=== PATIENT | male | born 1965 | race Caucasian/White ===

== ENCOUNTER → 2019-07-30 09:18 | Outpatient (BNVA) | payer MEDICAID, SELFPAY | PROVIDERS: PCP Family Medicine; Visit Provider Nurse Practitioner | DX: F20.89 Other schizophrenia (principal); F11.21 Opioid dependence, in remission | CPT/HCPCS: 99213 ==

== ENCOUNTER → 2019-10-22 07:53 | Outpatient (BNVA) | payer MEDICAID, SELFPAY | PROVIDERS: PCP Family Medicine; Visit Provider Nurse Practitioner | DX: F20.89 Other schizophrenia (principal); F17.210 Nicotine dependence, cigarettes, uncomplicated | CPT/HCPCS: 99213 ==

== ENCOUNTER 2020-02-18 20:23 | Emergency (ER) | payer MEDICAID, SELFPAY ==
--- NOTE | 2020-02-18 20:25 | ECG_ITS ---
[facility] Test Date: 2020-02-18 Pat Name: David Cortes Department: Room: Gender: Male Accredited Pharmacy Technician: : 1965 Requested By: Fany Maher Order Number: [id number] Mahesh MD: Joycelyn Yang M.D. Measurements Intervals [place] Rate: 99 P: 41 AR: 150 QRS: 34 QRSD: 96 T: 59 QT: 351 QTc: 451 Interpretive Statements SINUS RHYTHM Compared to ECG 06/19/2017 14:09:09 No significant change Electronically Signed On 02-19-2020 12:43:00 CDT by Joycelyn Yang M.D. [id number]
[2020-02-18 20:35] VITALS: BP 140/85; PULSE 92; RESP 20; TEMP 36.7; O2SAT 97; BMI 30.5
--- NOTE | 2020-02-18 20:54 | W.ED.SOB ---
HPI - SOB/Dyspnea General: Chief Complaint: Shortness of Breath/Dyspnea Stated Complaint: CHEST PAIN, SOB Time Seen by Provider: 02/18/20 20:45 Source: patient Mode of arrival: ambulatory Limitations: no limitations History of Present Illness: HPI Narrative: 54-year-old male who states he has had a cough along with dyspnea and wheezing over the last week. He states he has sharp pains in his chest now from coughing especially deep separation. He denies any worsening improving factors. He denies any vomiting. He denies any fevers. He has had no sick contacts. MD elicited complaint: shortness of breath Associated symptoms: Deny abdominal pain, chest pain, fever(s), nausea or vomiting Review of Systems Const: Denies: fever(s), chills, body aches or change in appetite Eyes: Denies: blurry vision or eye discomfort ENMT: Denies: throat pain or dental pain Card: Denies: chest pain Resp: Reports: dyspnea, non-productive cough and wheezing GI: Denies: abdominal pain, nausea, vomiting or diarrhea : Denies: dysuria Musc: Denies: neck pain or back pain Skin/Breast: Denies: rash Neuro: Denies: headache(s) Psych: Denies: depression Tab/Lymph: Denies: easy bruising All/Imm: Denies: urticaria PFSH ED PFSH: Medical History Nicotine dependence, cigarettes, uncomplicated Opioid dependence, in remission Other schizophrenia Other stimulant dependence, in remission Family History Mother Psychiatric illness Schizophrenia Social History Smoking and tobacco status: current every day smoker cigarettes Smoking risk assessment/counseling performed?: Yes Tobacco counseling given: counseling >3 minutes Physical Exam Const: COMMON NORMALS: no acute distress, patient oriented x3 and healthy appearing HENMT: COMMON NORMALS: normocephalic and atraumatic HEAD & SCALP: normocephalic and atraumatic Eye: COMMON NORMALS: Equal, round and reactive pupils present and EOMs intact bilaterally PUPIL: Yes Equal, round and reactive pupils present Neck/C-Spine: COMMON NORMALS: full ROM and supple Chest: COMMONS NORMALS: normal inspection of the chest and normal palpation of entire chest wall Resp: COMMON NORMALS: normal respiratory effort, No retractions and No use of accessory muscles AUSCULTATION: wheezes Cardio: COMMON NORMALS: regular rate, regular rhythm and No murmurs present (Cardio) RATE: regular rate RHYTHM: regular rhythm GI: COMMON NORMALS: Normal to inspection, nondistended, normoactive bowel sounds present, Soft to palpation, non-tender and no masses PALPATION: Yes Soft to palpation Extremity: COMMON NORMALS: normal to inspection and full ROM Neuro: COMMON NORMALS: patient oriented x3, moves all extremities and no focal motor deficits Psych: COMMON NORMALS: mental status grossly normal, Normal thought process present and cooperative THOUGHT PROCESS: Normal thought process present Skin: COMMON NORMALS: no rashes or lesions noted and no wounds GENERAL SKIN EXAM: no rashes or lesions noted Course Vital Signs: Vital signs: Vital Signs Temperature 98.0 F 02/18/20 20:35 Pulse Rate 85 02/18/20 23:43 Respiratory Rate 18 02/18/20 23:43 Blood Pressure 135/78 02/18/20 23:43 Pulse Oximetry 95 02/18/20 23:43 MDM - SOB/Dyspnea MDM Narrative: Medical decision making narrative: Patient presents here with bronchitis likely has asthma. Patient feels improved after breathing treatments. Will give patient 5 days of steroids along with Keflex along with albuterol. Patient has no signs of cardiac cause and repeat troponins negative. Patient has no signs of pulmonary embolism or coronavirus. Patient feels improved after breathing treatments and is to follow-up with primary care doctor in 3 to 5 days and return if worsening. He understands and agrees to plan. Lab Data: Labs: Lab Results 02/18/20 02/18/20 02/18/20 Range/Units 20:46 20:46 20:46 WBC 6.0 (4.0-10.0) 10^3/ uL RBC 4.88 (4.1-5.3) 10^6/u L Hgb 14.2 (11.7-16.6) g/dL Hct 44.6 (42.0-52.0) % MCV 91.4 (80-94) fL MCH 29.1 (28.0-34.0) pg MCHC 31.8 (30.0-36.0) g/dL RDW 14.2 (12.1-15.1) % Plt Count 326 (130-400) 10^3/c mm MPV 8.5 (7.4-10.4) fL Neut % (Auto) 67.0 % Lymph % (Auto) 21.3 % [place] % (Auto) 7.9 % Eos % (Auto) 2.7 % Baso % (Auto) 0.8 % Neut # (Auto) 3.98 (1.8-7.7) 10^3/u L Lymph # (Auto) 1.3 (0.8-4.8) 10^3/u L [place] # (Auto) 0.5 (0.2-0.9) 10^3/u L Eos # (Auto) 0.2 (0.0-0.8) 10^3/u L Baso # (Auto) 0.1 (0.0-0.1) 10^3/u L Nucleated RBC % (a uto) 0 % Nucleated RBCs # 0.0 /100WBC PT 12.10 (12.1-14.9) SECO NDS INR 0.87 (0.8-1.2) Sodium 136 (136-145) mmol/L Potassium 3.9 (3.5-5.1) mmol/L Chloride 100 (98-107) mmol/L Carbon Dioxide 26 (22-29) mmol/L Anion Gap 13.9 (5-19) BUN 15 (6-20) mg/dL Creatinine 1.0 (0.7-1.2) mg/dL GFR Calculation 77.9 L (90-130) mL/min Glucose 157 H (65-115) mg/dL Calculated Osmolal ity 282 L (285-295) mOsm/k g Calcium 9.5 (8.5-10.5) mg/dL Total Bilirubin 0.3 (0.15-1.2) mg/dL AST 17 (0-40) U/L ALT 31 (0-41) U/L Alkaline Phosphata se 100 (40-130) IU/L Troponin T Baselin e (0-15) ng/L Troponin T 120 Min [place] (0-15) ng/L Delta Troponin T (0-10) ABS# NT-Pro-B Natriuret Pep 369 H (0-125) pg/mL Total Protein 7.3 (6.6-8.7) g/dL Albumin 4.3 (3.5-5.2) g/dL Globulin 3.0 (1.3-4.6) g/dL 02/18/20 02/18/20 Range/Units 20:46 22:10 WBC (4.0-10.0) 10^3/ uL RBC (4.1-5.3) 10^6/u L Hgb (11.7-16.6) g/dL Hct (42.0-52.0) % MCV (80-94) fL MCH (28.0-34.0) pg MCHC (30.0-36.0) g/dL RDW (12.1-15.1) % Plt Count (130-400) 10^3/c mm MPV (7.4-10.4) fL Neut % (Auto) % Lymph % (Auto) % [place] % (Auto) % Eos % (Auto) % Baso % (Auto) % Neut # (Auto) (1.8-7.7) 10^3/u L Lymph # (Auto) (0.8-4.8) 10^3/u L [place] # (Auto) (0.2-0.9) 10^3/u L Eos # (Auto) (0.0-0.8) 10^3/u L Baso # (Auto) (0.0-0.1) 10^3/u L Nucleated RBC % (a uto) % Nucleated RBCs # /100WBC PT (12.1-14.9) SECO NDS INR (0.8-1.2) Sodium (136-145) mmol/L Potassium (3.5-5.1) mmol/L Chloride (98-107) mmol/L Carbon Dioxide (22-29) mmol/L Anion Gap (5-19) BUN (6-20) mg/dL Creatinine (0.7-1.2) mg/dL GFR Calculation (90-130) mL/min Glucose (65-115) mg/dL Calculated Osmolal ity (285-295) mOsm/k g Calcium (8.5-10.5) mg/dL Total Bilirubin (0.15-1.2) mg/dL AST (0-40) U/L ALT (0-41) U/L Alkaline Phosphata se (40-130) IU/L Troponin T Baselin e 20 H (0-15) ng/L Troponin T 120 Min [place] 18.88 H (0-15) ng/L Delta Troponin T -1.12 L (0-10) ABS# NT-Pro-B Natriuret Pep (0-125) pg/mL Total Protein (6.6-8.7) g/dL Albumin (3.5-5.2) g/dL Globulin (1.3-4.6) g/dL Imaging Data^: CXR: Radiologist's impression: Reason: cough [address] [address] XRay Report Signed Patient: David Cortes Unit #: [id number] : 1965 Age/Sex: 54 / M ADM Date: 02/18/20 Loc: ER Room/Bed: Attending Dr: Ordering Provider/Ordering MD: Fany Maher MD Date of Service: 02/18/20 Procedure(s): XR chest 1V portable [id number] Accession Number(s): [id number] Report Number: [id number] PROCEDURE INFORMATION: Exam: XR Chest, 1 View Exam date and time: 02/18/2020 9:44 PM Age: 54 years old Clinical indication: Cough TECHNIQUE: Imaging protocol: XR of the chest Views: 1 view. COMPARISON: CR Chest 1 [place] [id number] 03/22/2019 10:11 PM FINDINGS: Lungs: No visible active interstitial or alveolar airspace disease. Pleural space: Unremarkable. No pleural effusion. No pneumothorax. Heart/Mediastinum: Cardiomegaly. Bones/joints: Previous right shoulder rotator cuff repair. Tendon anchors. Right distal clavicle osteotomy. XR/XR chest 1V portable [id number] IMPRESSION: Nonacute. Dictated By: Ovidio Lafleur Signed By: Ovidio Lafleur Signed Date/Time: 02/18/20 2216 EKG Data^: EKG 1: Attestation: I personally reviewed and interpreted this EKG as follows: EKG Interpretation Date: 02/18/20 EKG interpretation time: 20:57 Interpretation: nsr hr [address] or t wave abnormalities 96 qtc 407 EKG 2: Attestation: I personally reviewed and interpreted this EKG as follows: EKG Interpretation Date: 02/18/20 EKG interpretation time: 22:18 Interpretation: nsr hr [address] or t wave abnormalities qrs 101 qtc 429 Discharge Plan Discharge Patient Disposition: Home Clinical Impression: Bronchitis Condition: Stable Prescriptions: New albuterol sulfate 2.5 mg /3 mL (0.083 %) solution for nebulization 2.5 mg INHALATION Q4H PRN (Reason: shortness of breath or wheezing) Qty: 90 RF: 0 Keflex 500 mg capsule 500 mg PO Q6H 7 Days Qty: 28 RF: 0 prednisone 50 mg tablet 50 mg PO DAILY Qty: 5 RF: 0 No Action nicotine 14 mg/24 hr patch 24 hour 1 patch TRANSDERMA Q24H Qty: 28 RF: 0 gabapentin 800 mg tablet 800 mg PO TID Qty: 90 RF: 0 quetiapine [Seroquel] 300 mg tablet 600 mg PO .Qhs Qty: 60 RF: 0 quetiapine [Seroquel] 100 mg tablet 100 mg PO BID Qty: 60 RF: 0 Multiple Vitamins Tablet 1 tab PO DAILY RF: 0 Discharge Orders: Discharge Order (Routine); Ordered 02/18/20 Ordered By: Fany Maher Referrals: Juma Cho MD [Primary Care Provider] - 1-3 days Discharge Diet: Advance as tolerated Discharge Activity: Resume usual activity Discharge Date/Time: 02/18/20 23:44 Coding Level of Care Code ED Sound Printer for Chg Fwd Exam Comprehensive
[2020-02-18 20:58] LABS: Basophils # 0.1 10^3/uL (0.0-0.1); Basophils % 0.8 %; Eosinophils # 0.2 10^3/uL (0.0-0.8); Eosinophils % 2.7 %; Hematocrit 44.6 % (42.0-52.0); Hemoglobin 14.2 g/dL (11.7-16.6); Lymphocytes # 1.3 10^3/uL (0.8-4.8); Lymphocytes % 21.3 %; Mean Corpuscular HGB Conc 31.8 g/dL (30.0-36.0); Mean Corpuscular Hemoglobin 29.1 pg (28.0-34.0); Mean Corpuscular Volume 91.4 fL (80-94); Mean Platelet Volume 8.5 fL (7.4-10.4); Monocytes # 0.5 10^3/uL (0.2-0.9); Monocytes % 7.9 %; Neutrophils # 3.98 10^3/uL (1.8-7.7); Nucleated Red Blood Cells % 0 %; Platelet Count 326 10^3/cmm (130-400); Red Blood Count 4.88 10^6/uL (4.1-5.3); Red Cell Distribution Width 14.2 % (12.1-15.1)
[2020-02-18 21:08] VITALS: PULSE 94; RESP 19; O2SAT 98
[2020-02-18] MEDS: ipratropium-albuterol 3 mL Neb INHALATION (21:08)
[2020-02-18 21:10] LABS: INR 0.87 (0.8-1.2)
[2020-02-18 21:13] VITALS: PULSE 100; RESP 20; O2SAT 97
--- NOTE | 2020-02-18 21:22 | XRR_ITS ---
PROCEDURE INFORMATION: Exam: XR Chest, 1 View Exam date and time: 02/18/2020 9:44 PM Age: 54 years old Clinical indication: Cough TECHNIQUE: Imaging protocol: XR of the chest Views: 1 view. COMPARISON: CR Chest 1 [place] [id number] 03/22/2019 10:11 PM FINDINGS: Lungs: No visible active interstitial or alveolar airspace disease. Pleural space: Unremarkable. No pleural effusion. No pneumothorax. Heart/Mediastinum: Cardiomegaly. Bones/joints: Previous right shoulder rotator cuff repair. Tendon anchors. Right distal clavicle osteotomy. XR/XR chest 1V portable [id number] IMPRESSION: Nonacute.
[2020-02-18 21:24] LABS: Alanine Aminotransferase 31 U/L (0-41); Albumin Level 4.3 g/dL (3.5-5.2); Alkaline Phosphatase 100 IU/L (40-130); Anion Gap 13.9 (5-19); Aspartate Amino Transferase 17 U/L (0-40); Blood Urea Nitrogen 15 mg/dL (6-20); Calcium 9.5 mg/dL (8.5-10.5); Carbon Dioxide 26 mmol/L (22-29); Chloride 100 mmol/L (98-107); Glomerular Filtration Rate 77.9 mL/min (90-130); Glucose 157 mg/dL (65-115); NT Pro B Type Natriuretic Pept 369 pg/mL (0-125); Osmolality Calculated 282 mOsm/kg (285-295); Potassium 3.9 mmol/L (3.5-5.1); Sodium 136 mmol/L (136-145); Total Bilirubin 0.3 mg/dL (0.15-1.2); Total Protein 7.3 g/dL (6.6-8.7)
[2020-02-18] MEDS: ketorolac 30 mg/mL INJ 15 MG IVP (21:31)
[2020-02-18 21:50] LABS: Troponin(5th) Baseline 20 ng/L (0-15)
--- NOTE | 2020-02-18 22:25 | ECG_ITS ---
[facility] Test Date: 2020-02-18 Pat Name: David Cortes Department: Room: Gender: Male Beauty Specialist: : 1965 Requested By: Fany Maher Order Number: [id number] Mahesh MD: Joycelyn Yang M.D. Measurements Intervals [place] Rate: 89 P: 53 NV: 168 QRS: 49 QRSD: 101 T: 50 QT: 382 QTc: 467 Interpretive Statements SINUS RHYTHM Compared to ECG 02/18/2020 20:57:31 T-wave abnormality no longer present Electronically Signed On 02-19-2020 12:50:50 CDT by Joycelyn Yang M.D. [id number]
[2020-02-18 22:36] LABS: Troponin 5 2HR 18.88 ng/L (0-15)
[2020-02-18 22:40] LABS: Troponin 5 2HR Delta -1.12 ABS# (0-10)
[2020-02-18 23:13] VITALS: PULSE 85; RESP 18; O2SAT 95
[2020-02-18 23:21] VITALS: PULSE 88
[2020-02-18 23:43] VITALS: BP 135/78; PULSE 85; RESP 18; O2SAT 95
== END 2020-02-18 23:44 | disposition home or self-care (01) ==
PROVIDERS: Emergency Provider Emergency Medicine; PCP Family Medicine
DX: J40 Bronchitis, not specified as acute or chronic (principal); F17.210 Nicotine dependence, cigarettes, uncomplicated
CPT/HCPCS: 12345; 71045; 80053; 83880; 84484; 85025; 85610; 93005; 94640; 96374; 96375; 99283; 99284; J1885; J2930; J7611

== ENCOUNTER 2020-03-05 10:43 | Emergency (ER) | payer MEDICAID, SELFPAY ==
[2020-03-05] VITALS (7 sets, daily range): BP systolic 134–138; BP diastolic 76–78; PULSE 89–101; RESP 16–20; TEMP 36.2; O2SAT 95–99; BMI 31.8
--- NOTE | 2020-03-05 10:56 | ECG_ITS ---
[facility] Test Date: 2020-03-05 Pat Name: David Cortes Department: Room: Gender: Male Apron Man: : 1965 Requested By: Fany Maher Order Number: [id number] Mahesh MD: Alexis Adan M.D. Measurements Intervals [place] Rate: 84 P: 55 [place]: 160 QRS: 50 QRSD: 112 T: 55 QT: 386 QTc: 458 Interpretive Statements SINUS RHYTHM INTRAVENTRICULAR CONDUCTION DELAY [110+ ms QRS DURATION] Compared to ECG 02/18/2020 22:18:26 Intraventricular conduction delay now present Electronically Signed On 03-05-2020 18:18:34 CDT by Alexis Adan M.D. [id number] f
--- NOTE | 2020-03-05 10:56 | XR_ITS ---
WS: [id number] EXAM: AP CHEST: PORTABLE UPRIGHT DATE OF EXAM: 03/05/2020, 1122 hours COMPARISON: Chest x-rays from 11/06/2016, 04/01/2018 and 02/18/2020 HISTORY: Patient is 55 years old with shortness of breath. FINDINGS: The cardiac silhouette is normal in size. The mediastinal contours are normal. The pulmonary vas cularity is normal. The lungs are clear of infiltrate. There is no effusion or pneumothorax. No ac zach bony abnormality is seen. XR/XR chest 1V portable [id number] IMPRESSION: No acute pulmonary disease.
[2020-03-05] MEDS: ipratropium-albuterol 3 mL Neb INHALATION (11:53)
--- NOTE | 2020-03-05 12:10 | W.ED.URI ---
HPI - URI/Sore Throat General: Chief Complaint: Upper Respiratory Infection Stated Complaint: cp/sob Time Seen by Provider: 03/05/20 11:07 Source: patient Mode of arrival: ambulatory Limitations: no limitations History of Present Illness: HPI Narrative: 55-year-old male who has a history of bronchitis. Patient was seen here 2 weeks ago and taken steroids and antibiotics state he felt improved. Patient felt much better here after breathing treatment was prescribed nebs but states he did not have a nebulizer machine. Patient states he has had increased wheezing again. He has not followed up with anyone. He denies any fever. He denies any worsening or improving factors currently. Associated symptoms: Deny abdominal pain, chills, chest pain, diarrhea, fever(s), headache(s), nausea or vomiting Review of Systems Const: Denies: fever(s), chills, body aches or change in appetite Eyes: Denies: blurry vision or eye discomfort ENMT: Denies: throat pain or dental pain Card: Denies: chest pain Resp: Reports: dyspnea and non-productive cough GI: Denies: abdominal pain, nausea, vomiting or diarrhea : Denies: dysuria Musc: Denies: neck pain or back pain Skin/Breast: Denies: rash Neuro: Denies: headache(s) Psych: Denies: depression Tab/Lymph: Denies: easy bruising All/Imm: Denies: urticaria PFSH ED PFSH: Medical History (Updated 03/05/20 @ 14:09 by Fany Maher MD) Nicotine dependence, cigarettes, uncomplicated Opioid dependence, in remission Other schizophrenia Other stimulant dependence, in remission Family History Mother Psychiatric illness Schizophrenia Social History Smoking and tobacco status: current every day smoker cigarettes Smoking risk assessment/counseling performed?: Yes Tobacco counseling given: counseling >3 minutes Physical Exam Const: COMMON NORMALS: no acute distress, patient oriented x3 and healthy appearing HENMT: COMMON NORMALS: normocephalic and atraumatic HEAD & SCALP: normocephalic and atraumatic Eye: COMMON NORMALS: Equal, round and reactive pupils present and EOMs intact bilaterally PUPIL: Yes Equal, round and reactive pupils present Neck/C-Spine: COMMON NORMALS: full ROM and supple Chest: COMMONS NORMALS: normal inspection of the chest and normal palpation of entire chest wall Resp: COMMON NORMALS: normal respiratory effort, No retractions and No use of accessory muscles AUSCULTATION: wheezes Cardio: COMMON NORMALS: regular rate, regular rhythm and No murmurs present (Cardio) RATE: regular rate RHYTHM: regular rhythm GI: COMMON NORMALS: Normal to inspection, nondistended, normoactive bowel sounds present, Soft to palpation, non-tender and no masses PALPATION: Yes Soft to palpation Extremity: COMMON NORMALS: normal to inspection and full ROM Neuro: COMMON NORMALS: patient oriented x3, moves all extremities and no focal motor deficits Psych: COMMON NORMALS: mental status grossly normal, Normal thought process present and cooperative THOUGHT PROCESS: Normal thought process present Skin: COMMON NORMALS: no rashes or lesions noted and no wounds GENERAL SKIN EXAM: no rashes or lesions noted Course Vital Signs: Vital signs: Vital Signs Temperature 97.1 F L 03/05/20 10:53 Pulse Rate 89 03/05/20 15:28 Respiratory Rate 20 H 03/05/20 15:28 Blood Pressure 138/78 03/05/20 15:28 Pulse Oximetry 99 03/05/20 15:28 MDM - URI/Sore Throat MDM Narrative: Medical decision making narrative: Patient presents here with cough and likely COPD exacerbation. Will place on steroids. He has had no hypoxia here and is well-appearing here after breathing treatments. We will get him set up an appointment with pulmonology. He is to follow-up with them and return if worsening. Lab Data: Labs: Lab Results 03/05/20 03/05/20 03/05/20 Range/Units 12:30 12:30 12:30 WBC 8.1 (4.0-10.0) 10^3/ uL RBC 4.60 (4.1-5.3) 10^6/u L Hgb 13.3 (11.7-16.6) g/dL Hct 42.2 (42.0-52.0) % MCV 91.7 (80-94) fL MCH 28.9 (28.0-34.0) pg MCHC 31.5 (30.0-36.0) g/dL RDW 14.2 (12.1-15.1) % Plt Count 269 (130-400) 10^3/c mm MPV 8.6 (7.4-10.4) fL Neut % (Auto) 70.6 % Lymph % (Auto) 20.4 % [place] % (Auto) 7.5 % Eos % (Auto) 0.6 % Baso % (Auto) 0.5 % Neut # (Auto) 5.75 (1.8-7.7) 10^3/u L Lymph # (Auto) 1.7 (0.8-4.8) 10^3/u L [place] # (Auto) 0.6 (0.2-0.9) 10^3/u L Eos # (Auto) 0.1 (0.0-0.8) 10^3/u L Baso # (Auto) 0.0 (0.0-0.1) 10^3/u L Nucleated RBC % (a uto) 0 % Nucleated RBCs # 0.0 /100WBC Sodium 135 L (136-145) mmol/L Potassium 3.8 (3.5-5.1) mmol/L Chloride 100 (98-107) mmol/L Carbon Dioxide 26 (22-29) mmol/L Anion Gap 12.8 (5-19) BUN 14 (6-20) mg/dL Creatinine 0.9 (0.7-1.2) mg/dL GFR Calculation 87.6 L (90-130) mL/min Glucose 159 H (65-115) mg/dL Calculated Osmolal ity 280 L (285-295) mOsm/k g Calcium 8.9 (8.5-10.5) mg/dL Total Bilirubin 0.3 (0.15-1.2) mg/dL AST 18 (0-40) U/L ALT 31 (0-41) U/L Alkaline Phosphata se 92 (40-130) IU/L Troponin T Baselin e 20 H (0-15) ng/L Troponin T 120 Min [place] (0-15) ng/L Delta Troponin T (0-10) ABS# NT-Pro-B Natriuret Pep 394 H (0-125) pg/mL Total Protein 6.6 (6.6-8.7) g/dL Albumin 3.9 (3.5-5.2) g/dL Globulin 2.7 (1.3-4.6) g/dL 03/05/20 Range/Units 14:30 WBC (4.0-10.0) 10^3/ uL RBC (4.1-5.3) 10^6/u L Hgb (11.7-16.6) g/dL Hct (42.0-52.0) % MCV (80-94) fL MCH (28.0-34.0) pg MCHC (30.0-36.0) g/dL RDW (12.1-15.1) % Plt Count (130-400) 10^3/c mm MPV (7.4-10.4) fL Neut % (Auto) % Lymph % (Auto) % [place] % (Auto) % Eos % (Auto) % Baso % (Auto) % Neut # (Auto) (1.8-7.7) 10^3/u L Lymph # (Auto) (0.8-4.8) 10^3/u L [place] # (Auto) (0.2-0.9) 10^3/u L Eos # (Auto) (0.0-0.8) 10^3/u L Baso # (Auto) (0.0-0.1) 10^3/u L Nucleated RBC % (a uto) % Nucleated RBCs # /100WBC Sodium (136-145) mmol/L Potassium (3.5-5.1) mmol/L Chloride (98-107) mmol/L Carbon Dioxide (22-29) mmol/L Anion Gap (5-19) BUN (6-20) mg/dL Creatinine (0.7-1.2) mg/dL GFR Calculation (90-130) mL/min Glucose (65-115) mg/dL Calculated Osmolal ity (285-295) mOsm/k g Calcium (8.5-10.5) mg/dL Total Bilirubin (0.15-1.2) mg/dL AST (0-40) U/L ALT (0-41) U/L Alkaline Phosphata se (40-130) IU/L Troponin T Baselin e (0-15) ng/L Troponin T 120 Min [place] 20.66 H (0-15) ng/L Delta Troponin T 0.66 (0-10) ABS# NT-Pro-B Natriuret Pep (0-125) pg/mL Total Protein (6.6-8.7) g/dL Albumin (3.5-5.2) g/dL Globulin (1.3-4.6) g/dL Imaging Data^: CXR: Radiologist's impression: [address] [place] [address] XRay Report Signed Patient: David Cortes Unit #: [id number] : 1965 Age/Sex: 55 / M ADM Date: 03/05/20 Loc: ER Room/Bed: Attending Dr: Ordering Provider/Ordering MD: Fany Maher MD Date of Service: 03/05/20 Procedure(s): XR chest 1V portable [id number] Accession Number(s): [id number] Report Number: [id number] WS: [id number] EXAM: AP CHEST: PORTABLE UPRIGHT DATE OF EXAM: 03/05/2020, 1122 hours COMPARISON: Chest x-rays from 11/06/2016, 04/01/2018 and 02/18/2020 HISTORY: Patient is 55 years old with shortness of breath. FINDINGS: The cardiac silhouette is normal in size. The mediastinal contours are normal. The pulmonary vascularity is normal. The lungs are clear of infiltrate. There is no effusion or pneumothorax. No acute bony abnormality is seen. XR/XR chest 1V portable [id number] IMPRESSION: No acute pulmonary disease. Discharge Plan Discharge Patient Disposition: Home Clinical Impression: Bronchitis Condition: Stable Prescriptions: New prednisone 50 mg tablet 50 mg PO DAILY Qty: 5 RF: 0 albuterol sulfate 90 mcg/actuation HFA aerosol inhaler 2 inh INHALATION Q6H PRN (Reason: shortness of breath or wheezing) Qty: 8 RF: 0 No Action nicotine 14 mg/24 hr patch 24 hour 1 patch TRANSDERMA Q24H Qty: 28 RF: 0 gabapentin 800 mg tablet 800 mg PO TID Qty: 90 RF: 0 quetiapine [Seroquel] 300 mg tablet 600 mg PO .Qhs Qty: 60 RF: 0 quetiapine [Seroquel] 100 mg tablet 100 mg PO BID Qty: 60 RF: 0 multivitamin [Multiple Vitamins] Tablet 1 tab PO DAILY RF: 0 albuterol sulfate 2.5 mg /3 mL (0.083 %) solution for nebulization 2.5 mg INHALATION Q4H PRN (Reason: shortness of breath or wheezing) Qty: 90 RF: 0 Discharge Orders: Discharge Order (Routine); Ordered 03/05/20 Ordered By: Fany Maher Referrals: Juma Cho MD [Primary Care Provider] - Gabby Bautista MD [Physician] - 1-3 days Discharge Diet: Advance as tolerated Discharge Activity: Resume usual activity Patient Instructions: Acute Bronchitis (ED) Discharge Date/Time: 03/05/20 15:30 Coding Level of Care Code ED Medical Affairs Specialist for Chg Fwd Exam Comprehensive
[2020-03-05 12:38] LABS: Basophils % 0.5 %; Eosinophils # 0.1 10^3/uL (0.0-0.8); Eosinophils % 0.6 %; Hematocrit 42.2 % (42.0-52.0); Hemoglobin 13.3 g/dL (11.7-16.6); Lymphocytes # 1.7 10^3/uL (0.8-4.8); Lymphocytes % 20.4 %; Mean Corpuscular HGB Conc 31.5 g/dL (30.0-36.0); Mean Corpuscular Hemoglobin 28.9 pg (28.0-34.0); Mean Corpuscular Volume 91.7 fL (80-94); Mean Platelet Volume 8.6 fL (7.4-10.4); Monocytes # 0.6 10^3/uL (0.2-0.9); Monocytes % 7.5 %; Neutrophils # 5.75 10^3/uL (1.8-7.7); Neutrophils % 70.6 %; Nucleated Red Blood Cells % 0 %; Platelet Count 269 10^3/cmm (130-400); Red Cell Distribution Width 14.2 % (12.1-15.1); White Blood Count 8.1 10^3/uL (4.0-10.0)
[2020-03-05 13:04] LABS: Alanine Aminotransferase 31 U/L (0-41); Albumin Level 3.9 g/dL (3.5-5.2); Alkaline Phosphatase 92 IU/L (40-130); Anion Gap 12.8 (5-19); Aspartate Amino Transferase 18 U/L (0-40); Blood Urea Nitrogen 14 mg/dL (6-20); Calcium 8.9 mg/dL (8.5-10.5); Carbon Dioxide 26 mmol/L (22-29); Chloride 100 mmol/L (98-107); Globulin 2.7 g/dL (1.3-4.6); Glomerular Filtration Rate 87.6 mL/min (90-130); Glucose 159 mg/dL (65-115); NT Pro B Type Natriuretic Pept 394 pg/mL (0-125); Osmolality Calculated 280 mOsm/kg (285-295); Potassium 3.8 mmol/L (3.5-5.1); Sodium 135 mmol/L (136-145); Total Bilirubin 0.3 mg/dL (0.15-1.2); Total Protein 6.6 g/dL (6.6-8.7)
[2020-03-05] MEDS: morphine 4 mg/mL SDV 1 mL IVP (13:24)
[2020-03-05 13:25] LABS: Troponin(5th) Baseline 20 ng/L (0-15)
[2020-03-05] MEDS: ondansetron 2 mg/ML SDV 2 mL 4 MG IVP (13:25)
[2020-03-05 14:59] LABS: Troponin 5 2HR 20.66 ng/L (0-15); Troponin 5 2HR Delta 0.66 ABS# (0-10)
[2020-03-05] MEDS: albuterol 8 gm MDI 2 PUFF INHALATION (15:03)
[2020-03-06 15:16] LABS: Coronavirus Lab Test PTC Negative
--- NOTE | 2020-03-07 10:14 | PC.NURSE ---
Message left for pt to return call for COViD results.
--- NOTE | 2020-03-07 10:42 | DCPLANNER ---
event operations manager had message to schedule a follow up appointment for patient with Dr. Bautista at [facility]. event operations manager called [facility], spoke with Taryn, a follow up appointment is scheduled for , February at 8:[address] Bautista. event operations manager called patient, left a voicemail for patient regarding the appointment information.
--- NOTE | 2020-04-14 13:33 | DCPLANNER ---
Patient had a follow up appointment scheduled for 03.09.20 with [facility] - appointment was cancelled.
== END 2020-03-05 15:30 | disposition home or self-care (01) ==
PROVIDERS: Emergency Provider Emergency Medicine; PCP Family Medicine
DX: J40 Bronchitis, not specified as acute or chronic (principal); F17.210 Nicotine dependence, cigarettes, uncomplicated
CPT/HCPCS: 12345; 36415; 71045; 80053; 83880; 84484; 85025; 87635; 93005; 94640; 96374; 96375; 99283; 99284; J2270; J2405; J3535; J7611

== ENCOUNTER 2020-03-10 11:46 | Emergency (ER) | payer MEDICAID, SELFPAY ==
[2020-03-10 11:55] VITALS: BP 150/115; PULSE 86; RESP 20; TEMP 36.6; O2SAT 96; BMI 33.9
--- NOTE | 2020-03-10 12:03 | XR_ITS ---
WS: [id number] Left foot, 3 views, 03/10/2020 Clinical Data: trauma Comparison: None. Findings: No fractures or dislocations are seen. No bone destruction or erosion is noted. The joint spaces and soft tissues are normal. XR/XR foot LT min 3V* [id number] Impression: Negative left foot.
--- NOTE | 2020-03-10 12:03 | XR_ITS ---
WS: [id number] Left ankle, 3 views, 03/10/2020 Clinical Data: trauma Comparison: None. Findings: No fractures or dislocations are seen. The ankle mortise is normal. The talus and calcaneus are unrem arkable. No soft tissue swelling over the medial or lateral malleolus is seen. XR/XR ankle LT min 3V* [id number] Impression: Negative left ankle.
--- NOTE | 2020-03-10 12:04 | W.ED.EXTPRO ---
HPI - Extremity Problem General: Chief complaint: Extremity Injury, Lower Stated complaint: left foot injury Time Seen by Provider: 03/10/20 11:53 History of Present Illness: HPI Narrative: Patient says he come off the roof about 10 foot up possibly and this was yesterday sitting on some boards now has left foot ankle pain and has been swelled Complaint: extremity pain Onset (ago): day(s) Pain Consistency: constant Location: left and lower extremity Severity scale (1-10): 7 Quality: aching Relieving factors: immobilization Exacerbating factors: range of motion and weight bearing Associated symptoms: Reports no associated symptoms; Deny chest pain, fever(s) or rash Review of Systems Const: Denies: fever(s), chills or body aches Eyes: Denies: change in vision or blurry vision ENMT: Denies: throat pain or nasal congestion Card: Denies: chest pain or dyspnea on exertion Resp: Denies: dyspnea, productive cough or non-productive cough GI: Denies: abdominal pain, nausea or vomiting : Denies: difficulty urinating Musc: Reports: extremity pain (Left ankle foot from a fall approximately 10 foot yesterday) Skin/Breast: Denies: rash Neuro: Denies: headache(s) Psych: Denies: anxiety or depression Tab/Lymph: Denies: easy bruising PFSH ED PFSH: Medical History (Updated 03/05/20 @ 14:09 by Fany Maher MD) Nicotine dependence, cigarettes, uncomplicated Opioid dependence, in remission Other schizophrenia Other stimulant dependence, in remission Family History Mother Psychiatric illness Schizophrenia Social History Smoking and tobacco status: current every day smoker cigarettes Smoking risk assessment/counseling performed?: Yes Tobacco counseling given: counseling >3 minutes Physical Exam Const: COMMON NORMALS: no acute distress, average body habitus and patient oriented x3 HENMT: COMMON NORMALS: normocephalic HEAD & SCALP: normal to inspection and normocephalic FACE & SINUS: normal facial exam Eye: COMMON NORMALS: conjunctivae normal GENERAL EYE: appearance normal, both eyes and all related structures CONJUNCTIVA: Yes conjunctivae normal Neck/C-Spine: COMMON NORMALS: no JVD Chest: COMMONS NORMALS: normal inspection of the chest Resp: COMMON NORMALS: normal respiratory effort and clear to auscultation bilaterally AUSCULTATION: clear to auscultation bilaterally Cardio: COMMON NORMALS: no JVD, regular rate and regular rhythm RATE: regular rate RHYTHM: regular rhythm GI: COMMON NORMALS: Normal to inspection, nondistended, normoactive bowel sounds present Extremity: COMMON NORMALS: normal to inspection and full ROM LEFT LOWER EXTREMITY: Yes foot & digits (Swelling and tenderness) OTHER: Swelling and tenderness Neuro: COMMON NORMALS: patient oriented x3 Course Vital Signs: Vital signs: Vital Signs Temperature 97.9 F 03/10/20 11:55 Pulse Rate 86 03/10/20 11:55 Respiratory Rate 20 H 03/10/20 11:55 Blood Pressure 150/115 03/10/20 11:55 Pulse Oximetry 96 03/10/20 11:55 Discharge Plan Discharge Prescriptions: No Action nicotine 14 mg/24 hr patch 24 hour 1 patch TRANSDERMA Q24H Qty: 28 RF: 0 quetiapine [Seroquel] 300 mg tablet 600 mg PO .Qhs Qty: 60 RF: 0 quetiapine [Seroquel] 100 mg tablet 100 mg PO BID Qty: 60 RF: 0 gabapentin 800 mg tablet 800 mg PO TID Qty: 90 RF: 0 prednisone 50 mg tablet 50 mg PO DAILY Qty: 5 RF: 0 albuterol sulfate 90 mcg/actuation HFA aerosol inhaler 2 inh INHALATION Q6H PRN (Reason: shortness of breath or wheezing) Qty: 8 RF: 0 multivitamin [Multiple Vitamins] Tablet 1 tab PO DAILY RF: 0 albuterol sulfate 2.5 mg /3 mL (0.083 %) solution for nebulization 2.5 mg INHALATION Q4H PRN (Reason: shortness of breath or wheezing) Qty: 90 RF: 0 Coding Level of Care Code ED Truck Driver Flatbed for Panchito Cooper
[2020-03-10 12:06] VITALS: BP 149/92; PULSE 84; RESP 18; O2SAT 96
[2020-03-10 13:08] VITALS: BP 139/73; PULSE 76; RESP 18; O2SAT 96
== END 2020-03-10 13:09 | disposition home or self-care (01) ==
PROVIDERS: Emergency Provider Nurse Practitioner Family; PCP Family Medicine
DX: S99.922A Unspecified injury of left foot, initial encounter (principal); X58.XXXA Exposure to other specified factors, initial encounter; F17.210 Nicotine dependence, cigarettes, uncomplicated
CPT/HCPCS: 12345; 73610; 73630; 99281; 99283; E0114

== ENCOUNTER → 2020-03-14 08:22 | Outpatient (BNVA) | payer MEDICAID, SELFPAY | PROVIDERS: PCP Family Medicine; Visit Provider Nurse Practitioner | DX: F20.89 Other schizophrenia (principal); F41.1 Generalized anxiety disorder | CPT/HCPCS: 99213 ==

== ENCOUNTER 2020-05-18 14:51 | Inpatient (IN) | payer MEDICAID, SELFPAY ==
[2020-05-18] VITALS (9 sets, daily range): BP systolic 105–110; BP diastolic 60–82; PULSE 81–91; RESP 17–20; TEMP 36.8–36.9; O2SAT 91–97; BMI 30.5
--- NOTE | 2020-05-18 15:02 | CTR_ITS ---
PROCEDURE INFORMATION: Exam: CT Abdomen And Pelvis With Contrast Exam date and time: 05/18/2020 3:13 PM Age: 55 years old Clinical indication: Nausea and vomiting and other: Distention; Abdominal pain TECHNIQUE: Imaging protocol: Computed tomography of the abdomen and pelvis with intravenous contrast. Radiation optimization: All CT scans at this facility use at least one of these dose optimization techniques: automated exposure control; mA and/or kV adjustment per patient size (includes targeted exams where dose is matched to clinical indication); or iterative reconstruction. Contrast material: OMNI 300; Contrast volume: 95 ml; Contrast route: INTRAVENOUS (IV); COMPARISON: CT Abdomen/Pelvis Renal 36550 11/06/2016 6:44 PM RADIATION DOSE METRICS: Total DLP (mGy-cm): 1647.18 FINDINGS: Liver: Normal. No mass. Gallbladder and bile ducts: Normal. No calcified stones. No ductal dilation. Pancreas: Normal. No ductal dilation. Spleen: Normal. No splenomegaly. Adrenal glands: Normal. No mass. Kidneys and ureters: Normal. No hydronephrosis. Stomach and bowel: There is dilation of the proximal and mid small bowel with a maximal diameter of 3.9 cm. There are air-fluid levels in small bowel. No volvulus, intussusception or significant hernia. Appendix: The appendix is visualized and appears normal. Intraperitoneal space: There is a small amount of fluid in the pelvis. No abscess or free air. Vasculature: Unremarkable. No abdominal aortic aneurysm. Lymph nodes: Unremarkable. No enlarged lymph nodes. Urinary bladder: Unremarkable as visualized. Reproductive: Unremarkable as visualized. Bones/joints: Degenerative change is identified in the spine. No acute fracture. Soft tissues: There is fat in the left inguinal canal. CT/CT abdomen pelvis w con* [id number] IMPRESSION: There is small bowel dilation suggestive of obstruction. There are air-fluid levels in small bowel suggestive of small bowel enteritis. Radiation Dose CTDIVOL = (mGy): DLP = 1647.18 (mGy-cm)
[2020-05-18 15:12] LABS: Basophils % 0.2 %; Eosinophils % 0.7 %; Hematocrit 44.1 % (42.0-52.0); Hemoglobin 14.2 g/dL (11.7-16.6); Lymphocytes # 1.1 10^3/uL (0.8-4.8); Lymphocytes % 28.4 %; Mean Corpuscular HGB Conc 32.2 g/dL (30.0-36.0); Mean Corpuscular Hemoglobin 29.2 pg (28.0-34.0); Mean Corpuscular Volume 90.6 fL (80-94); Mean Platelet Volume 8.9 fL (7.4-10.4); Monocytes # 0.5 10^3/uL (0.2-0.9); Monocytes % 12.7 %; Neutrophils # 2.31 10^3/uL (1.8-7.7); Neutrophils % 57.8 %; Nucleated Red Blood Cells % 0 %; Platelet Count 329 10^3/cmm (130-400); Red Blood Count 4.87 10^6/uL (4.1-5.3); Red Cell Distribution Width 14.2 % (12.1-15.1)
[2020-05-18 15:36] LABS: Alanine Aminotransferase 47 U/L (0-41); Albumin Level 3.7 g/dL (3.5-5.2); Alkaline Phosphatase 90 IU/L (40-130); Blood Urea Nitrogen 16 mg/dL (6-20); Calcium 8.5 mg/dL (8.5-10.5); Carbon Dioxide 26 mmol/L (22-29); Chloride 100 mmol/L (98-107); Globulin 2.7 g/dL (1.3-4.6); Glomerular Filtration Rate 100.4 mL/min (90-130); Glucose 97 mg/dL (65-115); Lipase 24 U/L (13-60); Osmolality Calculated 285 mOsm/kg (285-295); Sodium 137 mmol/L (136-145); Total Bilirubin 0.2 mg/dL (0.15-1.2); Total Protein 6.4 g/dL (6.6-8.7)
[2020-05-18] MEDS: iohexol 300 mg/mL 100 mL Btl IV (15:51)
[2020-05-18 15:54] LABS: Anion Gap 15.2 (5-19); Aspartate Amino Transferase 22 U/L (0-40); Potassium 4.2 mmol/L (3.5-5.1)
[2020-05-18 16:11] LABS: Add Urine Microscopic? NO
[2020-05-18 16:16] LABS: Bilirubin Urine Neg (Negative); Blood Urine Neg (Negative); Glucose Urine UA Norm (Normal); Ketones Urine Negative (Negative); Leukocyte Esterase Urine Negative (Negative); Nitrate Urine Negative (Negative); Protein Urine Neg (Negative); Urine Appearance Clear (CLEAR); Urine Color Yellow (Yellow); Urobilinogen Urine 1 mg/dL (Negative); pH Urine 5 (5-7)
[2020-05-18] MEDS: ondansetron 2 mg/ML SDV 2 mL 4 MG IVP (16:16)
[2020-05-18] MEDS: morphine 4 mg/mL SDV 1 mL IVP ×3 (16:16→19:29)
--- NOTE | 2020-05-18 17:14 | ED_ITS ---
HPI - Abdominal Pain General: Chief Complaint: Abdominal Pain Stated Complaint: ABDOMINAL PAIN/ DISTENDED & RIDGED Time Seen by Provider: 05/18/20 14:55 History of Present Illness: HPI narrative: This patient is a 55-year-old male who presents today with abdominal pain. Has been having diarrhea for several days and some vomiting as well. Today he started having severe pain in his stomach has been bloating up. He has not had any diarrhea in the past several hours. He denies any prior abdominal surgeries. He does not feel like he is had a fever. [facility] ED PFSH: Medical History (Updated 05/21/20 @ 00:00 by ) Other schizophrenia Surgical History Status post club foot correction at Family History Mother Psychiatric illness Schizophrenia Social History Smoking and tobacco status: current every day smoker cigarettes Smoking risk assessment/counseling performed?: Yes Tobacco counseling given: counseling >3 minutes Alcohol intake: never Household members: other Details: roommate x 1 Physical Exam Const: COMMON NORMALS: no acute distress, patient oriented x3, no limitations and alert GENERAL APPEARANCE: cooperative and comfortable HENMT: HEAD & SCALP: normal to inspection FACE & SINUS: normal facial exam Eye: GENERAL EYE: appearance normal, both eyes and all related structures Neck/C-Spine: COMMON NORMALS: supple, no meningeal signs and no JVD Chest: COMMONS NORMALS: normal inspection of the chest Resp: COMMON NORMALS: normal respiratory effort, No use of accessory muscles and clear to auscultation bilaterally AUSCULTATION: clear to auscultation bilaterally Cardio: COMMON NORMALS: no JVD, regular rate, regular rhythm and No murmurs present (Cardio) RATE: regular rate RHYTHM: regular rhythm GI: COMMON NORMALS: Normal to inspection, nondistended, normoactive bowel sounds present INSPECTION: Yes abdominal distension AUSCULTATION: Yes Hypoactive bowel sounds present PALPATION: Yes Firmness to palpation present (GI), Yes Tenderness to palpation present (GI) and Yes Guarding due to palpation present (GI) Back/Pelvis: COMMON NORMALS: thoracic and lumbar spine normal to inspection Extremity: COMMON NORMALS: normal to inspection Neuro: COMMON NORMALS: patient oriented x3, moves all extremities, no focal motor deficits and no sensory deficits noted SENSORIUM/ORIENTATION: Yes alert MENINGEAL SIGNS: Yes no meningeal signs Psych: COMMON NORMALS: mental status grossly normal, cooperative and normal affect Skin: COMMON NORMALS: no rashes or lesions noted and turgor normal GENERAL SKIN EXAM: no rashes or lesions noted and turgor normal Course ED course: This patient presents with abdominal pain and bloating. CT reveals a small bowel obstruction or ileus. He will be admitted to the hospital for further management of his symptoms. Vital Signs: Vital signs: Vital Signs Temperature 97.9 F 05/20/20 11:05 Pulse Rate 72 05/20/20 11:05 Respiratory Rate 20 H 05/20/20 11:05 Blood Pressure 127/83 05/20/20 11:05 Pulse Oximetry 96 05/20/20 11:05 MDM - Abdominal Pain Lab Data: Labs: Lab Results 05/18/20 05/18/20 05/18/20 Range/Units 15:05 15:05 16:01 WBC 4.0 (4.0-10.0) 10^3/ uL RBC 4.87 (4.1-5.3) 10^6/u L Hgb 14.2 (11.7-16.6) g/dL Hct 44.1 (42.0-52.0) % MCV 90.6 (80-94) fL MCH 29.2 (28.0-34.0) pg MCHC 32.2 (30.0-36.0) g/dL RDW 14.2 (12.1-15.1) % Plt Count 329 (130-400) 10^3/c mm MPV 8.9 (7.4-10.4) fL Neut % (Auto) 57.8 % Lymph % (Auto) 28.4 % [place] % (Auto) 12.7 % Eos % (Auto) 0.7 % Baso % (Auto) 0.2 % Neut # (Auto) 2.31 (1.8-7.7) 10^3/u L Lymph # (Auto) 1.1 (0.8-4.8) 10^3/u L [place] # (Auto) 0.5 (0.2-0.9) 10^3/u L Eos # (Auto) 0.0 (0.0-0.8) 10^3/u L Baso # (Auto) 0.0 (0.0-0.1) 10^3/u L Nucleated RBC % (a uto) 0 % Nucleated RBCs # 0.0 /100WBC Sodium 137 (136-145) mmol/L Potassium 4.2 (3.5-5.1) mmol/L Chloride 100 (98-107) mmol/L Carbon Dioxide 26 (22-29) mmol/L Anion Gap 15.2 (5-19) BUN 16 (6-20) mg/dL Creatinine 0.8 (0.7-1.2) mg/dL GFR Calculation 100.4 (90-130) mL/min Glucose 97 (65-115) mg/dL Calculated Osmolal ity 285 (285-295) mOsm/k g Lactic Acid (0.5-2.2) mmol/L Calcium 8.5 (8.5-10.5) mg/dL Total Bilirubin 0.2 (0.15-1.2) mg/dL AST 22 (0-40) U/L ALT 47 H (0-41) U/L Alkaline Phosphata se 90 (40-130) IU/L Total Protein 6.4 L (6.6-8.7) g/dL Albumin 3.7 (3.5-5.2) g/dL Globulin 2.7 (1.3-4.6) g/dL Lipase 24 (13-60) U/L Urine Color Yellow (Yellow) Urine Appearance Clear (CLEAR) Urine pH 5 (5-7) Ur Specific Gravit y 1.020 (1.005-1.030) Urine Protein Neg (Negative) Urine Glucose (UA) Norm (Normal) Urine Ketones Negative (Negative) Urine Blood Neg (Negative) Urine Nitrate Negative (Negative) Urine Bilirubin Neg (Negative) Urine Urobilinogen 1 H (Negative) mg/dL Ur Leukocyte Joaquina ase Negative (Negative) 05/18/20 Range/Units 16:49 WBC (4.0-10.0) 10^3/ uL RBC (4.1-5.3) 10^6/u L Hgb (11.7-16.6) g/dL Hct (42.0-52.0) % MCV (80-94) fL MCH (28.0-34.0) pg MCHC (30.0-36.0) g/dL RDW (12.1-15.1) % Plt Count (130-400) 10^3/c mm MPV (7.4-10.4) fL Neut % (Auto) % Lymph % (Auto) % [place] % (Auto) % Eos % (Auto) % Baso % (Auto) % Neut # (Auto) (1.8-7.7) 10^3/u L Lymph # (Auto) (0.8-4.8) 10^3/u L [place] # (Auto) (0.2-0.9) 10^3/u L Eos # (Auto) (0.0-0.8) 10^3/u L Baso # (Auto) (0.0-0.1) 10^3/u L Nucleated RBC % (a uto) % Nucleated RBCs # /100WBC Sodium (136-145) mmol/L Potassium (3.5-5.1) mmol/L Chloride (98-107) mmol/L Carbon Dioxide (22-29) mmol/L Anion Gap (5-19) BUN (6-20) mg/dL Creatinine (0.7-1.2) mg/dL GFR Calculation (90-130) mL/min Glucose (65-115) mg/dL Calculated Osmolal ity (285-295) mOsm/k g Lactic Acid 1.2 (0.5-2.2) mmol/L Calcium (8.5-10.5) mg/dL Total Bilirubin (0.15-1.2) mg/dL AST (0-40) U/L ALT (0-41) U/L Alkaline Phosphata se (40-130) IU/L Total Protein (6.6-8.7) g/dL Albumin (3.5-5.2) g/dL Globulin (1.3-4.6) g/dL Lipase (13-60) U/L Urine Color (Yellow) Urine Appearance (CLEAR) Urine pH (5-7) Ur Specific Gravit y (1.005-1.030) Urine Protein (Negative) Urine Glucose (UA) (Normal) Urine Ketones (Negative) Urine Blood (Negative) Urine Nitrate (Negative) Urine Bilirubin (Negative) Urine Urobilinogen (Negative) mg/dL Ur Leukocyte Joaquina ase (Negative) Discharge Plan Discharge Admit Provider: Gerson Zuniga Condition: Stable Discharge Orders: Discharge Order (Routine); Ordered 05/20/20 Ordered By: Gerson Zuniga Discharge Diet: Advance as tolerated Discharge Activity: Resume usual activity Coding Level of Care Code ED Commercial Sales Consultant for Lorenag Kenneth
[2020-05-18 17:18] LABS: Lactic Sepsis W/Reflex 1.2 mmol/L (0.5-2.2)
--- NOTE | 2020-05-18 17:30 | PM.CONSULT ---
Providers/Reason For Consult Consulting Physican/Specialty*: Breanna Rob MD, Hospitalist Reason for Consult*: Medical management Requesting Physcian: Dr. Zuniga Attending Physician: Dr. Zuniga Primary Care Provider: Juma Cho MD History of Present Illness History of Present Illness David Cortes is a 55 year old male with PMHx noted below presents with a 1 week history of lower abdominal discomfort, nausea, vomiting, bloating that has progressively been worsening. He also had diarrhea for which he was taking [id number] antidiarrheal medications which seemed to slow things down considerably but over the past 1 to 2 days has noted increased abdominal discomfort and difficulty with tolerating oral intake. He denies having had similar episodes in the past. Prior to the onset of his symptoms he was otherwise in his usual state of health. Denies any exposure to any COVID-19 positive individuals. He appears quite distended during my examination in the ER. Work-up so far shows normal CBC, normal electrolytes and renal function, normal LFTs, negative urinalysis. CT scan of the abdomen and pelvis shows small bowel dilatation suggestive of obstruction, air-fluid levels in the small bowel suggestive of small bowel enteritis. Nursing staff is currently in the process of placing an NG tube. Patient will be admitted under the surgical service and hospitalist consult has been requested for further medical management. So far he has received a dose of Zofran, morphine and is passing some gas. He will require admission for further management. Review of Systems Const: Reports: change in appetite (decreased appetite); Denies: fever(s) or chills Eyes: Denies: change in vision ENMT: Reports: dry mouth Card: Denies: chest pain, swelling of feet/ankles or lightheadedness Resp: Denies: dyspnea, productive cough or non-productive cough GI: Reports: abdominal pain, nausea, vomiting and bloating; Denies: hematemesis or hematochezia : Denies: dysuria or hematuria Musc: Denies: back pain Skin/Breast: Denies: rash Neuro: Denies: numbness in extremities or weakness in extremities Psych: Denies: anxiety Meds/Allergies Home Medications and Allergies Home Medications Medication Instructions Recorded Confirmed Last Taken Type nicotine 14 mg/24 hr daily 1 patch TRANSDERMA Q24H #28 each 10/22/19 05/18/20 05/18/20 Rx transdermal patch albuterol sulfate 2.5 mg INHALATION Q4H PRN #90 ml 02/18/20 05/18/20 Unknown Rx multivitamin [Multiple Vitamins] 1 tab PO DAILY 02/18/20 05/18/20 05/18/20 History albuterol sulfate 2 inh INHALATION Q6H PRN #8 gm 03/05/20 05/18/20 Unknown Rx gabapentin 800 mg tablet 800 mg PO TID #90 tab 05/10/20 05/18/20 05/18/20 Rx quetiapine 100 mg tablet 100 mg PO BID #60 tab 05/10/20 05/18/20 05/18/20 Rx Seroquel 600 mg PO BEDTIME 05/18/20 05/18/20 05/17/20 History Allergies Allergy/AdvReac Type Severity Reaction Status Date / Time No Known Allergies Allergy Verified 05/18/20 14:59 PFSH Acute PFSH: Medical History (Updated 05/18/20 @ 19:28 by Breanna Rob MD) Morbid obesity Nicotine dependence, cigarettes, uncomplicated Opioid dependence, in remission Other schizophrenia Other stimulant dependence, in remission Surgical History Status post club foot correction at Family History Mother Psychiatric illness Schizophrenia Social History (Updated 05/18/20 @ 17:34 by Breanna Rob MD) Smoking and tobacco status: current every day smoker cigarettes Number of cigarettes per day: 1-5 Smoking risk assessment/counseling performed?: Yes Tobacco counseling given: counseling >3 minutes Alcohol intake: never Household members: other Details: roommate x 1 Vitals/I&O/Wt Last Vital Signs Temp 98.2 F 05/18/20 14:52 Pulse 83 05/18/20 16:09 Resp 18 05/18/20 17:18 BP 105/63 05/18/20 16:09 Pulse Ox 97 05/18/20 16:09 Weight last 48 hrs Weight 102.058 kg Physical Exam Const: COMMON NORMALS: no acute distress, patient oriented x3 and alert GENERAL APPEARANCE: cooperative and comfortable NUTRITIONAL APPEARANCE: obese centrally obese ORIENTATION/CONSCIOUSNESS: Yes awake HENMT: COMMON NORMALS: normocephalic, atraumatic and hearing grossly normal bilaterally HEAD & SCALP: normocephalic and atraumatic MOUTH: moist mucous membranes abnormal Details: parched Eye: COMMON NORMALS: Equal, round and reactive pupils present, EOMs intact bilaterally and conjunctivae normal CONJUNCTIVA: Yes conjunctivae normal PUPIL: Yes Equal, round and reactive pupils present Neck/C-Spine: COMMON NORMALS: full ROM GENERAL: Yes normal visual inspection and Yes trachea midline Resp: COMMON NORMALS: normal respiratory effort, No retractions, No use of accessory muscles and clear to auscultation bilaterally EFFORT & INSPECTION: Yes able to speak in complete sentences, Yes symmetric chest movement and No tachypneic AUSCULTATION: clear to auscultation bilaterally Cardio: COMMON NORMALS: regular rate, regular rhythm, S1 normal heart sound present, S2 normal heart sound present and No murmurs present (Cardio) RATE: regular rate RHYTHM: regular rhythm HEART SOUNDS: S1 normal heart sound present and S2 normal heart sound present GI: COMMON NORMALS: Soft to palpation INSPECTION: Yes abdominal distension AUSCULTATION: Yes Hypoactive bowel sounds present PALPATION: Yes Soft to palpation, Yes Tenderness to palpation present (GI) Details: LLQ and RLQ, No Guarding due to palpation present (GI) and No Rigid due to palpation Extremity: COMMON NORMALS: normal to inspection, full ROM and no clubbing, cyanosis or edema; negative for no pedal edema Neuro: COMMON NORMALS: patient oriented x3, moves all extremities, no focal motor deficits and no sensory deficits noted SENSORIUM/ORIENTATION: Yes alert Psych: COMMON NORMALS: mental status grossly normal, Normal thought process present, cooperative, normal affect and speech normal SPEECH: Yes normal speech THOUGHT PROCESS: Normal thought process present Skin: COMMON NORMALS: no rashes or lesions noted, no jaundice, no petechiae and no mottling GENERAL SKIN EXAM: no rashes or lesions noted A&P Assessment and plan (1) Small bowel obstruction: -noted significant abdominal distention clinically -pending NGT placement; monitor output -keep NPO -pain control, antiemetics as needed -IVF hydration -imaging noted; repeat in AM -monitor vital signs -labs currently wnl, continue to trend Status: Acute (2) Nicotine dependence, cigarettes, uncomplicated: -nicotine replacement therapy Status: Chronic (3) Other schizophrenia: -resume meds Status: Chronic (4) Morbid obesity: -BMI-31 kg/m2 Status: Chronic Additional A&P Information -NPO -GI ppx with PPI -DVT ppx with lovenox -Dispo: home -Code status: FULL code -admit to medical surgical floor -Thank you for this consult. Will continue to follow along with you Consult Attestations Medical Necessity Statement: David Cortes's hospital stay will require greater than 2 midnights for management of small bowel obstruction requiring further management including NGT placement. Time Spent in Patient Care: Greater than 35 minutes (>than 50% of time spent in counselling and/or direct pt care on unit). Coding Level of Care Code Acute Cottage Supervisor for g Fwd Exam Comprehensive Diagnoses Small bowel obstruction K56.609 Nicotine dependence, cigarettes, uncomplicated F17.210 Other schizophrenia F20.89 Morbid obesity E66.01
[2020-05-18] MEDS: lidocaine 2% viscous 15 mL UDC 20 ML TOPICAL (17:40)
[2020-05-18] MEDS: D5-NS 0.45% + KCL 20 mEq 20 MEQ/1,000 ML BAG 100 MEQ IV (19:24)
[2020-05-18] MEDS: nicotine 14 mg Patch 1 PATCH TRANSDERMA (19:24)
[2020-05-18] MEDS: quetiapine 300 mg Tablet 600 MG PO (20:40)
[2020-05-18] MEDS: gabapentin 400 mg Capsule 800 MG PO (20:41)
[2020-05-19] VITALS (8 sets, daily range): BP systolic 118–139; BP diastolic 81–82; PULSE 71–88; RESP 16–18; TEMP 36.5–36.8; O2SAT 94–97
[2020-05-19] MEDS: morphine 4 mg/mL SDV 1 mL IVP (03:19)
[2020-05-19 05:26] LABS: Basophils % 0.3 %; Eosinophils # 0.1 10^3/uL (0.0-0.8); Eosinophils % 1.4 %; Hemoglobin 12.9 g/dL (11.7-16.6); Lymphocytes % 28.1 %; Mean Corpuscular HGB Conc 31.5 g/dL (30.0-36.0); Mean Corpuscular Hemoglobin 28.6 pg (28.0-34.0); Mean Corpuscular Volume 90.9 fL (80-94); Mean Platelet Volume 8.5 fL (7.4-10.4); Monocytes # 0.5 10^3/uL (0.2-0.9); Monocytes % 13.6 %; Neutrophils # 2.03 10^3/uL (1.8-7.7); Neutrophils % 56.3 %; Nucleated Red Blood Cells % 0 %; Platelet Count 298 10^3/cmm (130-400); Red Blood Count 4.51 10^6/uL (4.1-5.3); Red Cell Distribution Width 14.3 % (12.1-15.1); White Blood Count 3.6 10^3/uL (4.0-10.0)
[2020-05-19] MEDS: D5-NS 0.45% + KCL 20 mEq 20 MEQ/1,000 ML BAG 100 MEQ IV ×2 (05:45→17:03)
[2020-05-19] MEDS: enoxaparin 40 mg/0.4 mL Syringe SUBCUT (05:46)
[2020-05-19 05:48] LABS: Anion Gap 11.7 (5-19); Blood Urea Nitrogen 15 mg/dL (6-20); Carbon Dioxide 27 mmol/L (22-29); Chloride 102 mmol/L (98-107); Glomerular Filtration Rate 87.6 mL/min (90-130); Glucose 127 mg/dL (65-115); Osmolality Calculated 286 mOsm/kg (285-295); Potassium 3.7 mmol/L (3.5-5.1); Sodium 137 mmol/L (136-145)
--- NOTE | 2020-05-19 05:57 | NUR.SHIFT ---
Patient mainly slept through the night with some bouts of pain and nausea. Patient has the ability to pass gas.
--- NOTE | 2020-05-19 06:00 | XR_ITS ---
WS: [id number] XR abdomen min 2V [id number] REASON FOR EXAM: sbo FINDINGS: The nasogastric tube loops within the fundus of the stomach and the tip has passed retrograde and lie s in the distal esophagus. Multiple significantly dilated loops of small bowel compatible with distal small bowel obstruction. Large amount of stool in the colon and mild gaseous distention of the stomach. No free air. XR/XR abdomen min 2V [id number] IMPRESSION: Nasogastric tube position as above. Small bowel gas pattern indicating distal small bowel obstruction.
[2020-05-19] MEDS: pantoprazole 40 mg SDV IVP (08:01)
[2020-05-19] MEDS: gabapentin 400 mg Capsule 800 MG PO ×3 (08:01→21:03)
[2020-05-19] MEDS: quetiapine 100 mg Tablet PO ×2 (08:01→17:56)
--- NOTE | 2020-05-19 08:14 | PM.HP ---
Providers/Chief Complaint Admitting Physician: Gerson Zuniga MD Primary Care Provider: Juma Cho MD Chief Complaint: ABDOMINAL PAIN/ DISTENDED & RIDGED History of Present Illness David Cortes is a 55 year old male who states that he has been having generalized abdominal pain associated nausea, vomiting and diarrhea for the last 1 week. Patient states that the pain progressively got worse over the last couple of days. He started taking antidiarrheals to help with the diarrhea. He is now passing flatus, and had a bowel movement day before yesterday. No prior episodes in the past. No previous abdominal surgeries or colonoscopy. Review of Systems General: Reports: 10 or more systems reviewed and unremarkable except in HPI and below Medications/Allergies Home Medications Medication Instructions Recorded Confirmed Last Taken Type nicotine 14 mg/24 hr daily 1 patch TRANSDERMA Q24H #28 each 10/22/19 05/18/20 05/18/20 Rx transdermal patch albuterol sulfate 2.5 mg INHALATION Q4H PRN #90 ml 02/18/20 05/18/20 Unknown Rx multivitamin [Multiple Vitamins] 1 tab PO DAILY 02/18/20 05/18/20 05/18/20 History albuterol sulfate 2 inh INHALATION Q6H PRN #8 gm 03/05/20 05/18/20 Unknown Rx gabapentin 800 mg tablet 800 mg PO TID #90 tab 05/10/20 05/18/20 05/18/20 Rx quetiapine 100 mg tablet 100 mg PO BID #60 tab 05/10/20 05/18/20 05/18/20 Rx Seroquel 600 mg PO BEDTIME 05/18/20 05/18/20 05/17/20 History Allergies Allergy/AdvReac Type Severity Reaction Status Date / Time No Known Allergies Allergy Verified 05/18/20 14:59 PFSH Acute PFSH: Medical History Other schizophrenia Surgical History Status post club foot correction at Family History Mother Psychiatric illness Schizophrenia Social History Smoking and tobacco status: current every day smoker cigarettes Number of cigarettes per day: 1-5 Smoking risk assessment/counseling performed?: Yes Tobacco counseling given: counseling >3 minutes Alcohol intake: never Household members: other Details: roommate x 1 Vitals/I&O/Wt Last Vital Signs Temp 97.7 F 05/19/20 07:31 Pulse 71 05/19/20 07:54 Resp 16 05/19/20 07:53 BP 128/81 05/19/20 07:31 Pulse Ox 95 05/19/20 07:53 05/18/20 05/19/20 05/19/20 22:59 06:59 14:59 Intake Total 1000 / 1000 Balance 1000 / 1000 Weight last 48 hrs Weight 225 lb Physical Exam Narrative: EXAM NARRATIVE: HEENT: Normocephalic Eye: Sclera /conjunctiva normal Respiratory and chest: Bilateral clear breath sounds on auscultation Cardiovascular: Normal S1 and S2 heart sounds Abdomen: Soft to palpation Neurological: Oriented to place person and time Skin: Intact, no lesions appreciated on gross exam Data : 05/19/20 04:49 05/19/20 04:49 A&P Assessment and plan (1) Small bowel obstruction: 55-year-old male who presents with complaints of abdominal pain, distention, nausea and vomiting and recent history of diarrhea. CT scan of the abdomen pelvis showed multiple air-fluid levels but based on the history I suspect it is more likely that it is ileus rather than bowel obstruction. The NG tube was not in the right position and therefore I removed it today since he feels less distended this morning and is passing flatus. We will start him on a clear liquid diet and give a fleets enema Protonix for GI prophylaxis Lovenox for DVT prophylaxis Daily labs Patient will need 1 more night of inpatient stay to ensure resolution of obstruction/ileus Status: Acute Attestations Medical Necessity Statement*: Small bowel obstruction/ileus requiring 1 more night of inpatient stay to ensure resolution Coding Level of Care Code Acute Security Services Specialist for Panchito Cooper Diagnoses Small bowel obstruction K56.609
[2020-05-19] MEDS: Fleet Enema 133 mL Enema PR (10:21)
--- NOTE | 2020-05-19 10:24 | PC.NURSE ---
4.5 ounces fleet enema instilled at 1028. pt tolerated well. positioned on left side.
--- NOTE | 2020-05-19 12:08 | P.PN_ITS ---
Subjective Subjective: Interval history: NGT removed this AM, started on CLD and enema x 1 given. Noted decreased distention. VSS, afebrile. Ambulation encouraged. KUB noted. Required 2 doses of IV morphine overnight for pain control. Voiding independently. Reports feeling better, has been ambulating some, tolerating CLD so far, decreased abdominal discomfort. Medications: Reviewed: Yes Medication Review Details: Active Medications Generic Name Dose Route Start Last Admin Trade Name Freq PRN Reason Stop Dose Admin Acetaminophen 650 mg 05/18/20 18:58 Tylenol PO Q6H PRN MILD PAIN OR INCR EASE TEMP Hydrocodone Bitart /Acetaminophen 1 tab 05/18/20 18:58 [place] 5-325 Mg PO Q6H PRN MODERATE PAIN Albuterol Sulfate 2.5 mg 05/18/20 18:29 05/19/20 07:53 Albuterol INHALATION 2.5 mg Q4H PRN Administration shortness of joesph th or wheezing Albuterol Sulfate 1 puff 05/18/20 18:29 Ventolin INHALATION Q6H PRN shortness of joesph th or wheezing Enoxaparin Sodium 40 mg 05/19/20 06:00 05/19/20 05:46 Lovenox SUBCUT 40 mg Q24H JENNIFER Administration Gabapentin 800 mg 05/18/20 21:00 05/19/20 08:01 Neurontin PO 800 mg TID JENNIFER Administration Potassium Chloride /Dextrose/Sod Cl 20 meq in 1,000 m ls @ 100 mls/hr 05/18/20 18:58 05/19/20 05:45 D5-Ns 0.45% + Wong l 20 Meq IV 100 mls/hr .Q10H JENNIFER Administration Morphine Sulfate 4 mg 05/18/20 18:58 05/19/20 03:19 Morphine IVP 4 mg Q1H PRN Administration SEVERE PAIN Nicotine 1 patch 05/18/20 18:30 05/18/20 19:24 Nicoderm 14 Mg P atch TRANSDERMA 1 patch Q24H JENNIFER Administration Ondansetron HCl 4 mg 05/18/20 18:58 Zofran IVP Q4H PRN NAUSEA AND VOMITI NG Pantoprazole Sodiu m 40 mg 05/19/20 09:00 05/19/20 08:01 Protonix IVP 40 mg DAILY JENNIFER Administration Quetiapine Fumarat e 100 mg 05/19/20 09:00 05/19/20 08:01 Seroquel PO 100 mg BID JENNIFER Administration Quetiapine Fumarat e 600 mg 05/18/20 21:00 05/18/20 20:40 Seroquel PO 600 mg BEDTIME JENNIFER Administration No Known Allergies Allergy (Verified 05/18/20 14:59) Vitals/I&O/Wt Last Vital Signs Temp 98.1 F 05/19/20 12:00 Pulse 71 05/19/20 12:00 Resp 16 05/19/20 12:00 BP 139/82 05/19/20 12:00 Pulse Ox 96 05/19/20 12:00 05/18/20 05/19/20 05/19/20 22:59 06:59 14:59 Intake Total 1000 / 1000 120 / 120 Balance 1000 / 1000 120 / 120 Weight last 48 hrs Weight 102.058 kg Physical Exam Const: COMMON NORMALS: no acute distress, patient oriented x3 and alert GENERAL APPEARANCE: cooperative and comfortable NUTRITIONAL APPEARANCE: obese centrally obese ORIENTATION/CONSCIOUSNESS: Yes awake HENMT: COMMON NORMALS: normocephalic, atraumatic and hearing grossly normal bilaterally HEAD & SCALP: normocephalic and atraumatic MOUTH: moist mucous membranes abnormal Details: parched Eye: COMMON NORMALS: Equal, round and reactive pupils present, EOMs intact bilaterally and conjunctivae normal CONJUNCTIVA: Yes conjunctivae normal PUPIL: Yes Equal, round and reactive pupils present Neck/C-Spine: COMMON NORMALS: full ROM GENERAL: Yes normal visual inspection and Yes trachea midline Resp: COMMON NORMALS: normal respiratory effort, No retractions, No use of accessory muscles and clear to auscultation bilaterally EFFORT & INSPECTION: Yes able to speak in complete sentences, Yes symmetric chest movement and No tachypneic AUSCULTATION: clear to auscultation bilaterally Cardio: COMMON NORMALS: regular rate, regular rhythm, S1 normal heart sound present, S2 normal heart sound present and No murmurs present (Cardio) RATE: regular rate RHYTHM: regular rhythm HEART SOUNDS: S1 normal heart sound present and S2 normal heart sound present GI: COMMON NORMALS: Soft to palpation INSPECTION: Yes abdominal distension (decreased distention) AUSCULTATION: Yes normoactive bowel sounds PALPATION: Yes Soft to palpation, Yes Tenderness to palpation present (GI), No Guarding due to palpation present (GI) and No Rigid due to palpation Extremity: COMMON NORMALS: normal to inspection, full ROM and no clubbing, cyanosis or edema; negative for no pedal edema Neuro: COMMON NORMALS: patient oriented x3, moves all extremities, no focal motor deficits and no sensory deficits noted SENSORIUM/ORIENTATION: Yes alert Psych: COMMON NORMALS: mental status grossly normal, Normal thought process present, cooperative, normal affect and speech normal SPEECH: Yes normal speech THOUGHT PROCESS: Normal thought process present Skin: COMMON NORMALS: no rashes or lesions noted, no jaundice, no petechiae and no mottling GENERAL SKIN EXAM: no rashes or lesions noted Data : 05/19/20 04:49 05/19/20 04:49 A&P Assessment and plan (1) Small bowel obstruction: -noted significant abdominal distention clinically -NGT removed this morning; noted decreased distention. Clinically seems more like ileus which is resolving -started on CLD this AM -pain control, antiemetics as needed -IVF hydration -imaging noted; repeat in AM noted -continue to monitor vital signs -labs wnl -fleet enema x 1 today; noted BM Status: Acute (2) Nicotine dependence, cigarettes, uncomplicated: -nicotine replacement therapy Status: Chronic (3) Other schizophrenia: -continue meds Status: Chronic (4) Morbid obesity: -BMI-31 kg/m2 Status: Chronic Additional A&P Information -CLD, advance as tolerated; ambulation encouraged -GI ppx with PPI -DVT ppx with lovenox -Dispo: home -Code status: FULL code Attestations Medical Necessity Statement*: Patient requires hospitalization for continued management of SBO, started on oral intake. Time Spent in Patient Care: 16 - 35 minutes (>than 50% of time spent in counselling and/or direct pt care on unit) . Coding Level of Care Code Acute Investment Fund Manager for Chg Fwd Exam Comprehensive Diagnoses Small bowel obstruction K56.609 Nicotine dependence, cigarettes, uncomplicated F17.210 Other schizophrenia F20.89 Morbid obesity E66.01
--- NOTE | 2020-05-19 12:23 | PC.CHAP ---
Pastoral Care Encounter/Spiritual Assessment Type of Contact [] Declined supplier quality specialist visit [] Patient/Family/Request visit [] Outpatient visit [] Follow-up visit [] Physician referral [] Code/Alert [xx] Routine visit [] Staff referral [] Actively dying [] Patient sleeping [] Family support [] [] Out of room [] Palliative care [] [] Receiving care in room [] Pre-surgical visit [] Trauma [] Long length of stay [] ICU visit [] Other: Relational/Emotional Strength [xx] Patient feels connected with others/family/visitors/staff [] Distress [] Loneliness/isolation [] Abandonment Spirituality of Patient [xx] Person of Theresa [xx] Attends Religious of their Theresa [xx] Believes in Prayer [xx] Reads Bible or Muslim materials [] There are Spiritual issues to be addressed Full Stack Php Developer Interventions [xx] Prayer [xx] Active listening [xx] Non-anxious presence [] Spiritual/emotional support [] Crisis/trauma care [] Spiritual counseling [] Bereavement support [] Provided bereavement packet [xx] Provided Bible/devotional materials [] Provided toy/stuffed animal, coloring book to patient or family member [] Provided Communion [] Anointing/[place] [] Salvation [xx] Completed spiritual assessment [] Other: Impact on Illness or Injury [] Angry [] Fearful [] Anxious [] Often cries [] Exhaustion [] Unable to work [] Unable to attend nondenominational [] Unable to walk/stand [] Unable to read [] Unable to drive [] Unable to eat/drink [] Unable to sleep [] Unable to be with family [] Patient intubated [] Other: Summary Pt expects to be discharged to return home and to work. Pt requested Bible and Full Stack Php Developer found one for him. Time spent with patient 6 minutes Full Stack Php Developer Margarita Washington
--- NOTE | 2020-05-19 15:32 | PC.RESP ---
Smoking Cessation information sent to patient.
--- NOTE | 2020-05-19 16:51 | PC.NURSE ---
pt stated Dianna Brenda has permission to call and get information about his stay (#[phone])
--- NOTE | 2020-05-19 18:26 | PC.NURSE ---
Pt has had two formed bowl movements today and has tolerated full liquid diet. Ambulated around the floor twice. Pt verbalized he is passing gas. Good urine output. Abdomen is softer and not distended. No pain this shift.
[2020-05-19] MEDS: quetiapine 300 mg Tablet 600 MG PO (21:03)
[2020-05-20 02:36] VITALS: BP 120/74; PULSE 75; RESP 17; TEMP 37.1; O2SAT 97
[2020-05-20 03:29] VITALS: PULSE 70; RESP 16; O2SAT 97
[2020-05-20 04:00] VITALS: BP 123/80; PULSE 71; RESP 16; TEMP 36.6; O2SAT 97
[2020-05-20] MEDS: D5-NS 0.45% + KCL 20 mEq 20 MEQ/1,000 ML BAG 100 MEQ IV (04:47)
[2020-05-20] MEDS: enoxaparin 40 mg/0.4 mL Syringe SUBCUT (06:04)
[2020-05-20 06:47] LABS: Basophils % 0.3 %; Eosinophils # 0.1 10^3/uL (0.0-0.8); Hematocrit 40.7 % (42.0-52.0); Lymphocytes # 1.3 10^3/uL (0.8-4.8); Lymphocytes % 36.8 %; Mean Corpuscular HGB Conc 31.9 g/dL (30.0-36.0); Mean Corpuscular Volume 90.6 fL (80-94); Mean Platelet Volume 8.6 fL (7.4-10.4); Monocytes # 0.4 10^3/uL (0.2-0.9); Monocytes % 10.5 %; Neutrophils # 1.77 10^3/uL (1.8-7.7); Neutrophils % 50.1 %; Nucleated Red Blood Cells % 0 %; Platelet Count 303 10^3/cmm (130-400); Red Blood Count 4.49 10^6/uL (4.1-5.3); White Blood Count 3.5 10^3/uL (4.0-10.0)
[2020-05-20 07:09] LABS: Anion Gap 11.9 (5-19); Blood Urea Nitrogen 6 mg/dL (6-20); Calcium 8.1 mg/dL (8.5-10.5); Carbon Dioxide 27 mmol/L (22-29); Chloride 104 mmol/L (98-107); Creatinine Clr Calc Pharmacy 147.3725; Glomerular Filtration Rate 117.1 mL/min (90-130); Glucose 129 mg/dL (65-115); Osmolality Calculated 287 mOsm/kg (285-295); Potassium 3.9 mmol/L (3.5-5.1); Sodium 139 mmol/L (136-145)
[2020-05-20 07:25] VITALS: PULSE 74; RESP 18; O2SAT 94
[2020-05-20 08:11] VITALS: BP 127/83; PULSE 72; RESP 20; TEMP 36.6; O2SAT 96
[2020-05-20] MEDS: pantoprazole 40 mg SDV IVP (09:14)
[2020-05-20] MEDS: gabapentin 400 mg Capsule 800 MG PO (09:15)
[2020-05-20] MEDS: quetiapine 100 mg Tablet PO (09:15)
--- NOTE | 2020-05-20 09:50 | PM.PN ---
Subjective Subjective: Interval history: Patient has been doing well denies any pain, nausea or vomiting, had a bowel movement, feels less distended Vitals/I&O/Wt Last Vital Signs Temp 97.9 F 05/20/20 08:11 Pulse 72 05/20/20 08:11 Resp 20 H 05/20/20 08:11 BP 127/83 05/20/20 08:11 Pulse Ox 96 05/20/20 08:11 05/19/20 05/20/20 05/20/20 22:59 06:59 14:59 Intake Total 1000 / 3640 1800 / 3640 480 / 480 Output Total 100 / 100 700 / 700 Balance 900 / 3540 1800 / 3540 -220 / -220 Weight last 48 hrs Weight 225 lb Physical Exam Narrative: EXAM NARRATIVE: Abdomen: Soft, nondistended, nontender Data : 05/20/20 06:27 05/20/20 06:27 A&P Assessment and plan (1) Small bowel obstruction: 55-year-old male admitted to the hospital with no previous abdominal surgeries noted to have potential small bowel obstruction/ileus resolved with conservative measures DC home today Status: Acute Attestations Medical Necessity Statement*: Abdominal distention resolved, can go home today Coding Level of Care Code Acute Shellfish Checker for [facility] Diagnoses Small bowel obstruction K56.609
--- NOTE | 2020-05-20 09:51 | PM.DCS ---
Discharge Providers Date of Admission: 05/18/20 17:10 Date of Discharge: May 20, 2020 Attending Provider at Admission: Gerson Zuniga MD Attending Provider at Discharge: Gerson Zuniga MD Primary Care Provider: Juma Cho MD Diagnoses at Discharge Discharge Diagnosis (1) Small bowel obstruction: Status: Acute Reason for Visit Reason for Visit: ABDOMINAL PAIN/ DISTENDED & RIDGED Hospital Course Discharge Summary: This a 50-year-old gentleman who presented to the ER with abdominal pain, nausea, vomiting associate with abdominal distention. Patient had been having diarrhea the week before and had been taking antidiarrheals. He was admitted to the hospital for suspected bowel obstruction managed conservatively with bowel rest and NG tube. Over the next 24 hours he had resolution of abdominal distention, his abdominal pain is better and he is tolerating a liquid diet. He will follow up in 2 weeks an outpatient, to be scheduled for a colonoscopy since he has never had a colonoscopy Discharge Data Data Completed and Pending: Completed Studies During Hospitalization Category Date Time Status CT abdomen pelvis w con* [id number] Urge nt Cat Scan 05/18/20 15:02 Completed XR abdomen min 2V [id number] Routine Exams 05/19/20 06:00 Completed Pending at discharge Category Date Time Status Basic Metabolic P johan AM LABS Lab 05/21/20 04:00 Ordered Complete Blood Co unt w/Auto AM LABS Lab 05/21/20 04:00 Ordered Labs from last 24 hours 05/20/20 05/20/20 06:27 06:27 WBC 3.5 L RBC 4.49 Hgb 13.0 Hct 40.7 L MCV 90.6 MCH 29.0 MCHC 31.9 RDW 14.0 Plt Count 303 MPV 8.6 Neut % (Auto) 50.1 Lymph % (Auto) 36.8 [place] % (Auto) 10.5 Eos % (Auto) 2.0 Baso % (Auto) 0.3 Neut # (Auto) 1.77 L Lymph # (Auto) 1.3 [place] # (Auto) 0.4 Eos # (Auto) 0.1 Baso # (Auto) 0.0 Nucleated RBC % (a uto) 0 Nucleated RBCs # 0.0 Sodium 139 Potassium 3.9 Chloride 104 Carbon Dioxide 27 Anion Gap 11.9 BUN 6 Creatinine 0.7 GFR Calculation 117.1 Glucose 129 H Calculated Osmolal ity 287 Calcium 8.1 L Vitals: Last Vital Signs Temp 97.9 F 05/20/20 08:11 Pulse 72 05/20/20 08:11 Resp 20 H 05/20/20 08:11 BP 127/83 05/20/20 08:11 Pulse Ox 96 05/20/20 08:11 Discharge Plan Discharge Patient Disposition: Home Condition: Stable Prescriptions: New lactulose 10 gram/15 mL solution 15 ml PO BID Qty: 237 RF: 2 Continued nicotine 14 mg/24 hr patch 24 hour 1 patch TRANSDERMA Q24H Qty: 28 RF: 0 gabapentin 800 mg tablet 800 mg PO TID Qty: 90 RF: 0 quetiapine [Seroquel] 100 mg tablet 100 mg PO BID Qty: 60 RF: 0 albuterol sulfate 90 mcg/actuation HFA aerosol inhaler 2 inh INHALATION Q6H PRN (Reason: shortness of breath or wheezing) Qty: 8 RF: 0 multivitamin [Multiple Vitamins] Tablet 1 tab PO DAILY RF: 0 albuterol sulfate 2.5 mg /3 mL (0.083 %) solution for nebulization 2.5 mg INHALATION Q4H PRN (Reason: shortness of breath or wheezing) Qty: 90 RF: 0 Seroquel 300 mg tablet 600 mg PO BEDTIME RF: 0 Discharge Orders: Discharge Order (Routine); Ordered 05/20/20 Ordered By: Gerson Zuniga Referrals: Juma Cho MD [Primary Care Provider] - (Please call Dr. Cho's office on Friday to make an appointment to be seen in one week. [phone].) Gerson Zuniga MD [Physician] - 2 weeks Discharge Diet: Advance as tolerated Discharge Activity: Resume usual activity Discharge Attestations Time Spent in Discharge Care*: less than 30 min Quality Metrics Clinical Quality Measures During this hospital stay, did patient experience: None Coding Level of Care Code Acute Superintendent Power for Chg Fwd Diagnoses Small bowel obstruction K56.609
--- NOTE | 2020-05-20 10:39 | PM.PN ---
Subjective Subjective: Interval history: Resting comfortably in bed, no apparent distress, no acute overnight events reported, advanced to regular diet this AM. Had 1 BM yesterday, continues to pass gas, abdomen size almost back to normal. Medications: Reviewed: Yes Medication Review Details: Active Medications Generic Name Dose Route Start Last Admin Trade Name Freq PRN Reason Stop Dose Admin Acetaminophen 650 mg 05/18/20 18:58 Tylenol PO Q6H PRN MILD PAIN OR INCR EASE TEMP Hydrocodone Bitart /Acetaminophen 1 tab 05/18/20 18:58 [place] 5-325 Mg PO Q6H PRN MODERATE PAIN Albuterol Sulfate 2.5 mg 05/18/20 18:29 05/19/20 07:53 Albuterol INHALATION 2.5 mg Q4H PRN Administration shortness of joesph th or wheezing Albuterol Sulfate 1 puff 05/18/20 18:29 Ventolin INHALATION Q6H PRN shortness of joesph th or wheezing Enoxaparin Sodium 40 mg 05/19/20 06:00 05/20/20 06:04 Lovenox SUBCUT 40 mg Q24H JENNIFER Administration Gabapentin 800 mg 05/18/20 21:00 05/20/20 09:15 Neurontin PO 800 mg TID JENNIFER Administration Potassium Chloride /Dextrose/Sod Cl 20 meq in 1,000 m ls @ 100 mls/hr 05/18/20 18:58 05/20/20 04:47 D5-Ns 0.45% + Wong l 20 Meq IV 100 mls/hr .Q10H JENNIFER Administration Morphine Sulfate 4 mg 05/18/20 18:58 05/19/20 03:19 Morphine IVP 4 mg Q1H PRN Administration SEVERE PAIN Nicotine 1 patch 05/18/20 18:30 05/19/20 17:58 Nicoderm 14 Mg P atch TRANSDERMA Not Given Q24H JENNIFER Ondansetron HCl 4 mg 05/18/20 18:58 Zofran IVP Q4H PRN NAUSEA AND VOMITI NG Pantoprazole Sodiu m 40 mg 05/19/20 09:00 05/20/20 09:14 Protonix IVP 40 mg DAILY JENNIFER Administration Quetiapine Fumarat e 100 mg 05/19/20 09:00 05/20/20 09:15 Seroquel PO 100 mg BID JENNIFER Administration Quetiapine Fumarat e 600 mg 05/18/20 21:00 05/19/20 21:03 Seroquel PO 600 mg BEDTIME JENNIFER Administration No Known Allergies Allergy (Verified 05/18/20 14:59) Vitals/I&O/Wt Last Vital Signs Temp 97.9 F 05/20/20 08:11 Pulse 72 05/20/20 08:11 Resp 20 H 05/20/20 08:11 BP 127/83 05/20/20 08:11 Pulse Ox 96 05/20/20 08:11 05/19/20 05/20/20 05/20/20 22:59 06:59 14:59 Intake Total 1000 / 1840 1800 / 3640 960 / 960 Output Total 100 / 100 700 / 700 Balance 900 / 1740 1800 / 3540 260 / 260 Weight last 48 hrs Weight 102.058 kg Physical Exam Const: COMMON NORMALS: no acute distress, patient oriented x3 and alert GENERAL APPEARANCE: cooperative and comfortable NUTRITIONAL APPEARANCE: obese centrally obese ORIENTATION/CONSCIOUSNESS: Yes awake HENMT: COMMON NORMALS: normocephalic, atraumatic and hearing grossly normal bilaterally HEAD & SCALP: normocephalic and atraumatic MOUTH: moist mucous membranes abnormal Details: parched Eye: COMMON NORMALS: Equal, round and reactive pupils present, EOMs intact bilaterally and conjunctivae normal CONJUNCTIVA: Yes conjunctivae normal PUPIL: Yes Equal, round and reactive pupils present Neck/C-Spine: COMMON NORMALS: full ROM GENERAL: Yes normal visual inspection and Yes trachea midline Resp: COMMON NORMALS: normal respiratory effort, No retractions, No use of accessory muscles and clear to auscultation bilaterally EFFORT & INSPECTION: Yes able to speak in complete sentences, Yes symmetric chest movement and No tachypneic AUSCULTATION: clear to auscultation bilaterally Cardio: COMMON NORMALS: regular rate, regular rhythm, S1 normal heart sound present, S2 normal heart sound present and No murmurs present (Cardio) RATE: regular rate RHYTHM: regular rhythm HEART SOUNDS: S1 normal heart sound present and S2 normal heart sound present GI: COMMON NORMALS: Normal to inspection, nondistended, normoactive bowel sounds present, Soft to palpation and non-tender INSPECTION: Yes central obesity AUSCULTATION: Yes normoactive bowel sounds PALPATION: Yes Soft to palpation, No Guarding due to palpation present (GI) and No Rigid due to palpation Extremity: COMMON NORMALS: normal to inspection, full ROM and no clubbing, cyanosis or edema; negative for no pedal edema Neuro: COMMON NORMALS: patient oriented x3, moves all extremities, no focal motor deficits and no sensory deficits noted SENSORIUM/ORIENTATION: Yes alert Psych: COMMON NORMALS: mental status grossly normal, Normal thought process present, cooperative, normal affect and speech normal SPEECH: Yes normal speech THOUGHT PROCESS: Normal thought process present Skin: COMMON NORMALS: no rashes or lesions noted, no jaundice, no petechiae and no mottling GENERAL SKIN EXAM: no rashes or lesions noted Data : 05/20/20 06:27 05/20/20 06:27 A&P Assessment and plan (1) Small bowel obstruction: -noted significant abdominal distention clinically -NGT removed this morning; noted decreased distention. Clinically seems more like ileus which is resolving -advanced to regular diet this AM, -pain control, antiemetics as needed -IVF hydration -imaging noted -continue to monitor vital signs -labs wnl -fleet enema x 1, had BM yesterday Status: Acute (2) Nicotine dependence, cigarettes, uncomplicated: -nicotine replacement therapy Status: Chronic (3) Other schizophrenia: -continue meds Status: Chronic (4) Morbid obesity: -BMI-31 kg/m2 Status: Chronic Additional A&P Information -advanced to regular diet, tolerating; ambulation encouraged -GI ppx with PPI -DVT ppx with lovenox -Dispo: home -Code status: FULL code Attestations Medical Necessity Statement*: Discharge home today Time Spent in Patient Care: less than 15 minutes (>than 50% of time spent in counselling and/or direct pt care on unit). Coding Level of Care Code Acute Afternoon Nanny for g Fwd Diagnoses Small bowel obstruction K56.609 Nicotine dependence, cigarettes, uncomplicated F17.210 Other schizophrenia F20.89 Morbid obesity E66.01
[2020-05-20 11:05] VITALS: BP 127/83; PULSE 72; RESP 20; TEMP 36.6; O2SAT 96
--- NOTE | 2020-05-20 11:06 | PC.NURSE ---
pt iv taken out and intact. Discharge instructions explained and all questions answered. Pt taken to er entrance via wheelchair.
== END 2020-05-20 11:06 | disposition home or self-care (01) | DRG 389 ==
LOC: ER 15:19 → MEDSURG 18:12
PROVIDERS: Emergency Medicine; Admitting Provider Surgery; PCP Family Medicine; Visit Provider Surgery
DX: K56.609 Unspecified intestinal obstruction, unspecified as to partial versus complete obstruction (principal); F20.89 Other schizophrenia; F17.210 Nicotine dependence, cigarettes, uncomplicated; E66.01 Morbid (severe) obesity due to excess calories; Z68.31 Body mass index [BMI] 31.0-31.9, adult
CPT/HCPCS: 12345; 36415; 74019; 74177; 80048; 80053; 81003; 83605; 83690; 85025; 94640; 96372; 96375; 99283; C9113; J1650; J2270; J2405; J7611; Q9967

== ENCOUNTER → 2020-07-25 08:11 | Outpatient (BNVA) | payer MEDICAID, SELFPAY | PROVIDERS: PCP Family Medicine; Visit Provider Nurse Practitioner | DX: F20.89 Other schizophrenia (principal) | CPT/HCPCS: 99213 ==

== ENCOUNTER 2020-07-30 22:24 | Emergency (ER) | payer MEDICAID, SELFPAY ==
[2020-07-30 22:45] VITALS: BP 129/90; PULSE 95; RESP 22; TEMP 36.3; O2SAT 97; BMI 30.5
--- NOTE | 2020-07-30 23:30 | ECG_ITS ---
[facility] Test Date: 2020-07-30 Pat Name: David Cortes Department: Room: Gender: Male Guyline Operator: JAQUELIN : 1965 Requested By: Yonny Howe Order Number: [id number] Mahesh MD: Penny Mac M.D. Measurements Intervals [place] Rate: 94 P: 58 ID: [id number] QRS: 53 QRSD: 97 T: 62 QT: 354 QTc: 444 Interpretive Statements SINUS RHYTHM Compared to ECG 03/05/2020 13:41:51 Intraventricular conduction delay no longer present Electronically Signed On 07-31-2020 18:40:41 DIESEL TECHNOLOGY INSTRUCTOR by Penny Mac M.D. [id number]
--- NOTE | 2020-07-30 23:30 | XR_ITS ---
WS: [id number] PORTABLE CHEST HISTORY: Chest pain. COMPARISON: 03/05/2020 Mild interstitial thickening at the RIGHT lung base. Lungs are otherwise hyperinflated. No pleural ef fusion or pneumothorax. Cardiac size: Mildly enlarged cardiac silhouette. Mediastinum/Aorta: Normal mediastinum. Double anchor rotator cuff cuff repair on the RIGHT. XR/XR chest 1V portable [id number] IMPRESSION: 1. Minimal atelectasis is new at the RIGHT lung base. 2. Mild cardiomegaly.
[2020-07-31] VITALS: BP 140/90; PULSE 85; RESP 12; O2SAT 97
[2020-07-31 00:04] LABS: Basophils # 0.1 10^3/uL (0.0-0.1); Basophils % 0.8 %; Eosinophils # 0.1 10^3/uL (0.0-0.8); Eosinophils % 1.5 %; Hematocrit 42.2 % (42.0-52.0); Hemoglobin 13.8 g/dL (11.7-16.6); Lymphocytes # 1.6 10^3/uL (0.8-4.8); Lymphocytes % 20.4 %; Mean Corpuscular HGB Conc 32.7 g/dL (30.0-36.0); Mean Corpuscular Hemoglobin 28.7 pg (28.0-34.0); Mean Corpuscular Volume 87.7 fL (80-94); Mean Platelet Volume 8.7 fL (7.4-10.4); Monocytes # 0.6 10^3/uL (0.2-0.9); Monocytes % 7.9 %; Neutrophils # 5.43 10^3/uL (1.8-7.7); Neutrophils % 68.8 %; Nucleated Red Blood Cells % 0 %; Platelet Count 335 10^3/cmm (130-400); Red Blood Count 4.81 10^6/uL (4.1-5.3); Red Cell Distribution Width 13.5 % (12.1-15.1); White Blood Count 7.9 10^3/uL (4.0-10.0)
[2020-07-31 00:18] LABS: Partial Thromboplastin Time 28.1 SECONDS (23.9-36.7)
[2020-07-31 00:26] LABS: Troponin(5th) Baseline 22 ng/L (0-15)
[2020-07-31 00:30] VITALS: BP 140/90; PULSE 79; RESP 20; O2SAT 95
[2020-07-31 00:35] LABS: Alanine Aminotransferase 24 U/L (0-41); Albumin Level 3.8 g/dL (3.5-5.2); Alkaline Phosphatase 99 IU/L (40-130); Anion Gap 12.1 (5-19); Aspartate Amino Transferase 11 U/L (0-40); Blood Urea Nitrogen 14 mg/dL (6-20); Calcium 9.3 mg/dL (8.5-10.5); Carbon Dioxide 28 mmol/L (22-29); Chloride 99 mmol/L (98-107); Globulin 2.9 g/dL (1.3-4.6); Glomerular Filtration Rate 100.4 mL/min (90-130); Glucose 119 mg/dL (65-115); NT Pro B Type Natriuretic Pept 900 pg/mL (0-125); Osmolality Calculated 282 mOsm/kg (285-295); Potassium 4.1 mmol/L (3.5-5.1); Sodium 135 mmol/L (136-145); Total Bilirubin 0.2 mg/dL (0.15-1.2); Total Protein 6.7 g/dL (6.6-8.7)
[2020-07-31 01:00] VITALS: BP 148/95; PULSE 80; RESP 22; O2SAT 95
--- NOTE | 2020-07-31 01:12 | PC.NURSE ---
waiting for results
[2020-07-31 01:40] VITALS: PULSE 84; RESP 18; O2SAT 96
[2020-07-31] MEDS: albuterol 8 gm MDI 2 PUFF INHALATION (01:40)
[2020-07-31 01:45] VITALS: PULSE 85
[2020-07-31 01:50] VITALS: RESP 18; O2SAT 99
[2020-07-31] MEDS: oxyCODONE-APAP 5-325 mg Tablet 2 TAB PO (01:50)
[2020-07-31] MEDS: oxymetazoline 0.05% Nasal Spray 15 mL 2 SPRAY NOSTRIL-B (01:51)
[2020-07-31] MEDS: dexamethasone 4 mg Tablet 10 MG PO (01:51)
--- NOTE | 2020-07-31 08:22 | W.ED.CHESTPA ---
HPI - Chest Pain General: Chief Complaint: Chest Pain Stated Complaint: sob/anxiety/cp Time Seen by Provider: 07/31/20 00:41 History of Present Illness: HPI narrative: 55-year-old male complaining of nasal congestion causing him to be short of breath. He states that he does okay during the day, but when he lies down, his nose plugs up, and it makes it hard for him to breathe. He notes that he wakes in a panic. He has not tried anything for this. He is out of his albuterol inhaler he denies any fever. No loss of smell or taste. Associated symptoms: Deny abdominal pain, dyspnea, fever(s), nausea, palpitations or vomiting Review of Systems Const: Denies: fever(s) or chills Eyes: Denies: change in vision ENMT: Denies: throat pain Card: Denies: chest pain or palpitations Resp: Reports: non-productive cough and wheezing; Denies: dyspnea or productive cough GI: Denies: abdominal pain, nausea or vomiting Neuro: Denies: headache(s) PFS ED PFSH: Medical History (Updated 07/31/20 @ 01:26 by Yonny Stephens DO) Other schizophrenia Surgical History Status post club foot correction at Family History Mother Psychiatric illness Schizophrenia Social History Smoking and tobacco status: current every day smoker cigarettes Smoking risk assessment/counseling performed?: Yes Tobacco counseling given: counseling >3 minutes Alcohol intake: never Household members: other Details: roommate x 1 Physical Exam Const: GENERAL APPEARANCE: well developed and anxious ORIENTATION/CONSCIOUSNESS: Yes oriented to person, Yes oriented to place and Yes oriented to time HENMT: COMMON NORMALS: normocephalic, external ears normal and Normal external nose present HEAD & SCALP: normocephalic FACE & SINUS: normal facial exam NOSE: Normal external nose present and No nasal discharge present EXTERNAL EAR: Yes external ears normal Eye: COMMON NORMALS: Equal, round and reactive pupils present, EOMs intact bilaterally and conjunctivae normal EYELID: eyelids normal CONJUNCTIVA: Yes conjunctivae normal PUPIL: Yes Equal, round and reactive pupils present Neck/C-Spine: GENERAL: No tracheal deviation Chest: COMMONS NORMALS: normal inspection of the chest CHEST: No tenderness Resp: COMMON NORMALS: clear to auscultation bilaterally EFFORT & INSPECTION: No tachypneic, No respiratory distress, No retractions, No uses accessory muscles and No tracheal deviation AUSCULTATION: clear to auscultation bilaterally, no rhonchi, no wheezes and lung sounds not diminished Cardio: COMMON NORMALS: regular rate and regular rhythm RATE: regular rate RHYTHM: regular rhythm HEART SOUNDS: no murmurs PERIPHERAL PULSES: radial pulses present GI: INSPECTION: No abdominal distension AUSCULTATION: No Hyperactive bowel sounds present and No Hypoactive bowel sounds present PALPATION: No Guarding due to palpation present (GI) and No Rigid due to palpation PERCUSSION: no dullness to percussion and no tympanic to percussion Neuro: SENSORIUM/ORIENTATION: Yes oriented to person, Yes oriented to place and Yes oriented to time Psych: COMMON NORMALS: mental status grossly normal Skin: COMMON NORMALS: no rashes or lesions noted GENERAL SKIN EXAM: no rashes or lesions noted Course Vital Signs: Vital signs: Vital Signs Temperature 97.3 F L 07/30/20 22:45 Pulse Rate 85 07/31/20 01:45 Respiratory Rate 18 07/31/20 01:50 Blood Pressure 148/95 07/31/20 01:00 Pulse Oximetry 99 07/31/20 01:50 MDM - Chest Pain Lab Data: Labs: Lab Results 07/30/20 07/30/20 07/30/20 Range/Units 23:49 23:49 23:49 WBC 7.9 (4.0-10.0) 10^3/ uL RBC 4.81 (4.1-5.3) 10^6/u L Hgb 13.8 (11.7-16.6) g/dL Hct 42.2 (42.0-52.0) % MCV 87.7 (80-94) fL MCH 28.7 (28.0-34.0) pg MCHC 32.7 (30.0-36.0) g/dL RDW 13.5 (12.1-15.1) % Plt Count 335 (130-400) 10^3/c mm MPV 8.7 (7.4-10.4) fL Neut % (Auto) 68.8 % Lymph % (Auto) 20.4 % [place] % (Auto) 7.9 % Eos % (Auto) 1.5 % Baso % (Auto) 0.8 % Neut # (Auto) 5.43 (1.8-7.7) 10^3/u L Lymph # (Auto) 1.6 (0.8-4.8) 10^3/u L [place] # (Auto) 0.6 (0.2-0.9) 10^3/u L Eos # (Auto) 0.1 (0.0-0.8) 10^3/u L Baso # (Auto) 0.1 (0.0-0.1) 10^3/u L Nucleated RBC % (a uto) 0 % Nucleated RBCs # 0.0 /100WBC PT 12.40 (12.1-14.9) SECO NDS INR 0.90 (0.8-1.2) APTT 28.1 (23.9-36.7) SECO NDS Sodium 135 L (136-145) mmol/L Potassium 4.1 (3.5-5.1) mmol/L Chloride 99 (98-107) mmol/L Carbon Dioxide 28 (22-29) mmol/L Anion Gap 12.1 (5-19) BUN 14 (6-20) mg/dL Creatinine 0.8 (0.7-1.2) mg/dL GFR Calculation 100.4 (90-130) mL/min Glucose 119 H (65-115) mg/dL Calculated Osmolal ity 282 L (285-295) mOsm/k g Calcium 9.3 (8.5-10.5) mg/dL Total Bilirubin 0.2 (0.15-1.2) mg/dL AST 11 (0-40) U/L ALT 24 (0-41) U/L Alkaline Phosphata se 99 (40-130) IU/L Troponin T Baselin e (0-15) ng/L Troponin T 120 Min [place] (0-15) ng/L Delta Troponin T (0-10) ABS# NT-Pro-B Natriuret Pep 900 H (0-125) pg/mL Total Protein 6.7 (6.6-8.7) g/dL Albumin 3.8 (3.5-5.2) g/dL Globulin 2.9 (1.3-4.6) g/dL 07/30/20 07/31/20 Range/Units 23:49 01:30 WBC (4.0-10.0) 10^3/ uL RBC (4.1-5.3) 10^6/u L Hgb (11.7-16.6) g/dL Hct (42.0-52.0) % MCV (80-94) fL MCH (28.0-34.0) pg MCHC (30.0-36.0) g/dL RDW (12.1-15.1) % Plt Count (130-400) 10^3/c mm MPV (7.4-10.4) fL Neut % (Auto) % Lymph % (Auto) % [place] % (Auto) % Eos % (Auto) % Baso % (Auto) % Neut # (Auto) (1.8-7.7) 10^3/u L Lymph # (Auto) (0.8-4.8) 10^3/u L [place] # (Auto) (0.2-0.9) 10^3/u L Eos # (Auto) (0.0-0.8) 10^3/u L Baso # (Auto) (0.0-0.1) 10^3/u L Nucleated RBC % (a uto) % Nucleated RBCs # /100WBC PT (12.1-14.9) SECO NDS INR (0.8-1.2) APTT (23.9-36.7) SECO NDS Sodium (136-145) mmol/L Potassium (3.5-5.1) mmol/L Chloride (98-107) mmol/L Carbon Dioxide (22-29) mmol/L Anion Gap (5-19) BUN (6-20) mg/dL Creatinine (0.7-1.2) mg/dL GFR Calculation (90-130) mL/min Glucose (65-115) mg/dL Calculated Osmolal ity (285-295) mOsm/k g Calcium (8.5-10.5) mg/dL Total Bilirubin (0.15-1.2) mg/dL AST (0-40) U/L ALT (0-41) U/L Alkaline Phosphata se (40-130) IU/L Troponin T Baselin e 22 H (0-15) ng/L Troponin T 120 Min [place] 21.60 H (0-15) ng/L Delta Troponin T -0.40 L (0-10) ABS# NT-Pro-B Natriuret Pep (0-125) pg/mL Total Protein (6.6-8.7) g/dL Albumin (3.5-5.2) g/dL Globulin (1.3-4.6) g/dL Discharge Plan Discharge Patient Disposition: Home Clinical Impression: Sinusitis Qualifiers: Sinusitis location: unspecified location Chronicity: acute Recurrence: non-recurrent Qualified Code(s): J01.90 - Acute sinusitis, unspecified Condition: Stable Prescriptions: New Medrol (Abraham) 4 mg tablets,dose pack See Rx Instructions .ROUTE .COMPLEX Qty: 21 RF: 0 No Action gabapentin 800 mg tablet 800 mg PO TID Qty: 90 RF: 0 quetiapine [Seroquel] 100 mg tablet 100 mg PO BID Qty: 60 RF: 0 Seroquel 300 mg tablet 600 mg PO BEDTIME Qty: 60 RF: 0 nicotine 14 mg/24 hr patch 24 hour 1 patch TRANSDERMA Q24H Qty: 28 RF: 0 albuterol sulfate 90 mcg/actuation HFA aerosol inhaler 2 inh INHALATION Q6H PRN (Reason: shortness of breath or wheezing) Qty: 8 RF: 0 multivitamin [Multiple Vitamins] Tablet 1 tab PO DAILY RF: 0 albuterol sulfate 2.5 mg /3 mL (0.083 %) solution for nebulization 2.5 mg INHALATION Q4H PRN (Reason: shortness of breath or wheezing) Qty: 90 RF: 0 lactulose 10 gram/15 mL solution 15 ml PO BID Qty: 237 RF: 2 Discharge Orders: Discharge ED (Routine); Ordered 07/31/20 Ordered By: Yonny Stephens Discharge Diet: Usual diet Discharge Activity: Increase activity as tolerated Patient Instructions: Sinusitis (ED) Activity Restrictions/Additional Instructions: Prescribed medication as directed. Use the nasal spray 3 times daily for 48 hours then stop. After that, use saline nasal wash as needed. You may use your inhaler 2 puffs every 4 hours while awake as needed. Return for worsening symptoms. 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
== END 2020-07-31 01:55 | disposition home or self-care (01) ==
PROVIDERS: Emergency Provider Emergency Medicine
DX: J01.90 Acute sinusitis, unspecified (principal); F17.210 Nicotine dependence, cigarettes, uncomplicated
CPT/HCPCS: 12345; 36415; 71045; 80053; 83880; 84484; 85025; 85610; 85730; 93005; 94640; 99281; 99284; J3535; J8540

== ENCOUNTER → 2020-08-23 13:12 | Outpatient (BNVA) | payer MEDICAID, SELFPAY | PROVIDERS: Visit Provider Nurse Practitioner | DX: F20.89 Other schizophrenia (principal) | CPT/HCPCS: 80061; 83036 ==

== ENCOUNTER 2020-09-06 09:08 | Emergency (ER) | payer MEDICAID, SELFPAY ==
[2020-09-06] VITALS (7 sets, daily range): BP systolic 118–148; BP diastolic 66–89; PULSE 82–92; RESP 16–20; TEMP 36.5; O2SAT 96–98; BMI 30.5
--- NOTE | 2020-09-06 09:28 | XR_ITS ---
WS: [id number] Exam: XR chest 1V portable [id number] Date/Time of Exam: 09/06/2020 10:14 AM Reason For Exam: SOB Comparison 07/30/2020. Prominent right perihilar markings probably due to the AP technique and limited inspiration. Remainin g lung miles are clear. Mild cardiac enlargement unchanged. No pneumothorax or pleural effusion. The mediastinum and regional bony structures are unremarkable. Postoperative change of the distal right clavicle. Anchoring screws in the right humeral head. XR/XR chest 1V portable [id number] IMPRESSION: 1. No acute cardiopulmonary process identified. Mild cardiac enlargement.
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
--- NOTE | 2020-09-06 09:29 | ECG_ITS ---
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
[2020-09-06] MEDS: ipratropium-albuterol 3 mL Neb INHALATION (09:49)
[2020-09-06 10:08] LABS: Basophils # 0.1 10^3/uL (0.0-0.1); Basophils % 0.9 %; Eosinophils # 0.2 10^3/uL (0.0-0.8); Eosinophils % 2.3 %; Hematocrit 38.7 % (42.0-52.0); Hemoglobin 12.5 g/dL (11.7-16.6); Lymphocytes # 1.6 10^3/uL (0.8-4.8); Mean Corpuscular HGB Conc 32.3 g/dL (30.0-36.0); Mean Corpuscular Hemoglobin 29.8 pg (28.0-34.0); Mean Corpuscular Volume 92.1 fL (80-94); Mean Platelet Volume 8.9 fL (7.4-10.4); Monocytes # 0.8 10^3/uL (0.2-0.9); Monocytes % 9.9 %; Neutrophils % 66.3 %; Nucleated Red Blood Cells % 0 %; Platelet Count 248 10^3/cmm (130-400); Red Cell Distribution Width 14.2 % (12.1-15.1)
[2020-09-06 10:18] LABS: Alanine Aminotransferase 36 U/L (0-41); Albumin Level 4.2 g/dL (3.5-5.2); Alkaline Phosphatase 103 IU/L (40-130); Anion Gap 12.1 (5-19); Aspartate Amino Transferase 25 U/L (0-40); Blood Urea Nitrogen 23 mg/dL (6-20); Carbon Dioxide 27 mmol/L (22-29); Chloride 101 mmol/L (98-107); Globulin 2.3 g/dL (1.3-4.6); Glomerular Filtration Rate 87.6 mL/min (90-130); Glucose 138 mg/dL (65-115); Osmolality Calculated 288 mOsm/kg (285-295); Potassium 4.1 mmol/L (3.5-5.1); Sodium 136 mmol/L (136-145); Total Bilirubin 0.2 mg/dL (0.15-1.2); Total Protein 6.5 g/dL (6.6-8.7)
[2020-09-06 10:20] LABS: Amphetamines Screen Urine Negative (Negative); Barbiturates Screen Urine Negative (Negative); Benzodiazepines Screen Urine Negative (Negative); Cocaine Screen Urine Negative (Negative); Opiate Screen Urine Negative (Negative); PCP Screen Urine Negative (Negative); THC Screen Urine Positive (Negative); Troponin(5th) Baseline 21 ng/L (0-15)
[2020-09-06 11:08] LABS: Calcium 8.6 mg/dL (8.5-10.5); NT Pro B Type Natriuretic Pept 1178 pg/mL (0-125)
--- NOTE | 2020-09-07 14:27 | DCPLANNER ---
counter manager had message to schedule a follow up appointment for patient with [facility]. counter manager called [facility], spoke with Heidi, gave clinic patients information. A follow up appointment was scheduled for Friday, September 27, 2020 at 1:[address] Adan. counter manager called phone number, , unable to speak with patient at this time, a voicemail was left for patient with the appointment information.
--- NOTE | 2020-10-04 08:11 | DCPLANNER ---
Patient had a follow up appointment scheduled with [facility] - patient did not attend the appointment.
== END 2020-09-06 11:34 | disposition home or self-care (01) ==
PROVIDERS: Emergency Provider Physician Assistant
DX: I11.0 Hypertensive heart disease with heart failure (principal); I50.9 Heart failure, unspecified; F17.210 Nicotine dependence, cigarettes, uncomplicated
CPT/HCPCS: 71045; 80053; 80306; 83880; 84484; 85025; 93005; 94640; 99283

== ENCOUNTER 2020-10-27 16:29 | Emergency (ER) | payer MEDICAID, SELFPAY ==
[2020-10-27] VITALS (7 sets, daily range): BP systolic 129–134; BP diastolic 72–82; PULSE 73–92; RESP 16–18; TEMP 36.7; O2SAT 95–98
--- NOTE | 2020-10-27 17:06 | ED_ITS ---
HPI - Anxiety General: Chief Complaint: Anxiety Stated Complaint: SOB/ HX CHF Time Seen by Provider: 10/27/20 17:06 Source: patient Mode of arrival: ambulatory Limitations: no limitations History of Present Illness: HPI narrative: Patient comes in with anxiety and shortness of breath. Patient has a history of substance abuse, CHF, and COPD. Patient reports getting more shortness of breath over the past 2 to 3 days. Patient believes he just needs a breathing treatment and inhaler with a short course of steroids. Patient appears mildly unwell. Patient appears in no pain. Patient is sweating at rest. MD complaint: anxiety and shortness of breath Symptoms: dyspnea Severity: mild Provoking factors: none known Relieving factors: medication Associated symptoms: Reports chest pain and short of breath Review of Systems General: Reports: 10 or more systems reviewed and unremarkable except in HPI and below Card: Reports: chest pain Resp: Reports: dyspnea [facility] ED PFSH: Medical History (Updated 10/27/20 @ 18:31 by SHELLEY Baird) Other schizophrenia Surgical History Status post club foot correction at Family History Mother Psychiatric illness Schizophrenia Social History Smoking and tobacco status: current every day smoker cigarettes Smoking risk assessment/counseling performed?: Yes Tobacco counseling given: counseling >3 minutes Alcohol intake: never Household members: other Details: roommate x 1 Physical Exam Const: COMMON NORMALS: no acute distress and patient oriented x3 GENERAL APPEARANCE: cooperative HENMT: COMMON NORMALS: normocephalic and Normal external nose present HEAD & SCALP: normal to inspection and normocephalic NOSE: Normal external nose present MOUTH: Normal oral and palatal mucosa present Eye: GENERAL EYE: appearance normal, both eyes and all related structures Neck/C-Spine: COMMON NORMALS: full ROM Chest: COMMONS NORMALS: normal inspection of the chest Resp: COMMON NORMALS: normal respiratory effort EFFORT & INSPECTION: Yes able to speak in complete sentences AUSCULTATION: diminished lung sounds Cardio: COMMON NORMALS: regular rate and regular rhythm RATE: regular rate RHYTHM: regular rhythm GI: COMMON NORMALS: non-tender Back/Pelvis: COMMON NORMALS: thoracic and lumbar spine normal to inspection Extremity: COMMON NORMALS: normal to inspection Neuro: COMMON NORMALS: patient oriented x3 and moves all extremities Psych: COMMON NORMALS: mental status grossly normal and cooperative Skin: COMMON NORMALS: no rashes or lesions noted GENERAL SKIN EXAM: no rashes or lesions noted Course Vital Signs: Vital signs: Vital Signs Temperature 98.0 F 10/27/20 16:46 Pulse Rate 73 10/27/20 17:55 Respiratory Rate 16 10/27/20 17:40 Blood Pressure 129/72 10/27/20 17:34 Pulse Oximetry 98 10/27/20 17:40 MDM - Anxiety MDM Narrative: Medical decision making narrative: Patient comes in today with some complaints of shortness of breath. Patient states that he has been without his inhaler for the last couple of days he has had an increasing shortness of breath. Patient reports increased anxiety when he lays down at night due to difficulty catching his breath. Patient appears mildly unwell. Patient appears no acute distress. Lungs are decreased air movement throughout. Abdomen is soft nontender. Pulses are intact distally. Differential diagnosis includes congestive heart failure, COPD exacerbation, anxiety. Patient was given 1 DuoNeb treatment and a dose of lorazepam. Patient had improvement in overall symptoms. Patient did complain of some mild chest discomfort although this seemed like an after thought and his explanation of his symptoms. Lungs were increased with air movement after breathing treatment. Laboratory values actually from prior exam done 2 months ago. did not show much change with the BNP being decreased by about 500 points, troponin staying stable at 20 and the remainder labs normal. We will dose patient with 8 mg of dexamethasone IV, continuing with albuterol inhaler. Patient will also continue with routine medications. Patient reported understanding agreed to plan. Lab Data: Labs: Lab Results 10/27/20 10/27/20 Range/Units 17:42 17:42 Sodium 136 (136-145) mmol/L Potassium 4.2 (3.5-5.1) mmol/L Chloride 100 (98-107) mmol/L Carbon Dioxide 23 (22-29) mmol/L Anion Gap 17.2 (5-19) BUN 16 (6-20) mg/dL Creatinine 0.7 (0.7-1.2) mg/dL GFR Calculation 117.1 (90-130) mL/min Glucose 94 (65-115) mg/dL Calculated Osmolal ity 283 L (285-295) mOsm/k g Calcium 8.8 (8.5-10.5) mg/dL Total Bilirubin 0.2 (0.15-1.2) mg/dL AST 13 (0-40) U/L ALT 26 (0-41) U/L Alkaline Phosphata se 112 (40-130) IU/L Troponin T Gen 5 n g/L 20 H (0-15) ng/L NT-Pro-B Natriuret Pep 570 H (0-125) pg/mL Total Protein 7.0 (6.6-8.7) g/dL Albumin 4.3 (3.5-5.2) g/dL Globulin 2.7 (1.3-4.6) g/dL Discharge Plan Discharge Patient Disposition: Home Clinical Impression: Acute anxiety, COPD exacerbation, Atypical chest pain Condition: Stable Prescriptions: No Action nicotine 14 mg/24 hr patch 24 hour 1 patch TRANSDERMA Q24H Qty: 28 RF: 0 Seroquel 300 mg tablet 600 mg PO BEDTIME Qty: 60 RF: 2 gabapentin 800 mg tablet 800 mg PO TID Qty: 90 RF: 2 multivitamin [Multiple Vitamins] Tablet 1 tab PO DAILY RF: 0 albuterol sulfate 2.5 mg /3 mL (0.083 %) solution for nebulization 2.5 mg INHALATION Q4H PRN (Reason: shortness of breath or wheezing) Qty: 90 RF: 0 lactulose 10 gram/15 mL solution 15 ml PO BID Qty: 237 RF: 2 furosemide [Lasix] 20 mg tablet 20 mg PO DAILY Qty: 30 RF: 0 albuterol sulfate 90 mcg/actuation HFA aerosol inhaler 2 inh INHALATION Q6H PRN (Reason: shortness of breath or wheezing) Qty: 8 RF: 0 Discharge Orders: Discharge ED (Routine); Ordered 10/27/20 Ordered By: Silvestre Irizarry Discharge Diet: Usual diet Discharge Activity: Increase activity as tolerated Patient Instructions: Chronic Obstructive Pulmonary Disease (ED), Opioid Safety Activity Restrictions/Additional Instructions: Continue with routine medication. Use inhaler 2 puffs every 4 hours as needed for respiratory difficulty. Healthy diet and activity. Follow-up with primary care for further treatment and instruction. Return to the emergency department for new concerns. Coding Level of Care Code ED Peritoneal Dialysis Registered Nurse for [facility] Fwd Exam Comprehensive
--- NOTE | 2020-10-27 17:14 | XRR_ITS ---
PROCEDURE INFORMATION: Exam: XR Chest Exam date and time: 10/27/2020 5:17 PM Age: 55 years old Clinical indication: Dyspnea; Prior surgery; Surgery type: Right shoulder TECHNIQUE: Imaging protocol: XR of the chest. Views: 1 view. COMPARISON: CR XR chest 1V portable [id number] 09/06/2020 10:13 AM FINDINGS: Lungs: Unremarkable. No consolidation. Pleural spaces: Unremarkable. No pleural effusion. No pneumothorax. Heart/Mediastinum: Unremarkable. No cardiomegaly. Bones/joints: Unremarkable. XR/XR chest 1V portable [id number] IMPRESSION: No acute findings.
[2020-10-27] MEDS: LORazepam 1 mg Tablet PO (17:28)
[2020-10-27] MEDS: ipratropium-albuterol 3 mL Neb INHALATION (17:42)
[2020-10-27 18:15] LABS: Troponin T (5th) Once 20 ng/L (0-15)
[2020-10-27 18:22] LABS: Alanine Aminotransferase 26 U/L (0-41); Albumin Level 4.3 g/dL (3.5-5.2); Alkaline Phosphatase 112 IU/L (40-130); Anion Gap 17.2 (5-19); Aspartate Amino Transferase 13 U/L (0-40); Blood Urea Nitrogen 16 mg/dL (6-20); Calcium 8.8 mg/dL (8.5-10.5); Carbon Dioxide 23 mmol/L (22-29); Chloride 100 mmol/L (98-107); Globulin 2.7 g/dL (1.3-4.6); Glomerular Filtration Rate 117.1 mL/min (90-130); Glucose 94 mg/dL (65-115); NT Pro B Type Natriuretic Pept 570 pg/mL (0-125); Osmolality Calculated 283 mOsm/kg (285-295); Potassium 4.2 mmol/L (3.5-5.1); Sodium 136 mmol/L (136-145); Total Bilirubin 0.2 mg/dL (0.15-1.2)
[2020-10-27] MEDS: dexamethasone 4 mg/mL INJ 8 MG IVP (18:52)
[2020-10-27] MEDS: ketorolac 30 mg/mL INJ 15 MG IVP (18:52)
[2020-10-27] MEDS: albuterol 8 gm MDI 2 PUFF INHALATION (19:20)
== END 2020-10-27 19:37 | disposition home or self-care (01) ==
PROVIDERS: Emergency Provider Nurse Practitioner Family
DX: F41.9 Anxiety disorder, unspecified (principal); J44.1 Chronic obstructive pulmonary disease with (acute) exacerbation; R07.89 Other chest pain; F17.210 Nicotine dependence, cigarettes, uncomplicated
CPT/HCPCS: 71045; 80053; 83880; 84484; 85025; 94640; 96374; 96375; 99284; J1100; J1885; J3535

== ENCOUNTER → 2020-11-09 11:09 | Outpatient (BNVA) | payer MEDICAID, SELFPAY | PROVIDERS: Visit Provider Nurse Practitioner | DX: F20.89 Other schizophrenia (principal); F17.210 Nicotine dependence, cigarettes, uncomplicated; F12.20 Cannabis dependence, uncomplicated | CPT/HCPCS: 99214 ==

== ENCOUNTER 2021-01-28 18:41 | Emergency (ER) | payer MEDICAID, SELFPAY ==
[2021-01-28] VITALS (9 sets, daily range): BP systolic 101–135; BP diastolic 51–84; PULSE 82–94; RESP 18–27; TEMP 37.4; O2SAT 96–99; BMI 30.5
--- NOTE | 2021-01-28 19:15 | XRR_ITS ---
PROCEDURE INFORMATION: Exam: XR Chest Exam date and time: 01/28/2021 7:15 PM Age: 55 years old Clinical indication: Dyspnea; Additional info: SOB TECHNIQUE: Imaging protocol: XR of the chest. Views: 1 view. COMPARISON: CR XR chest 1V portable [id number] 10/27/2020 5:58 PM FINDINGS: Lungs: Unremarkable. No consolidation. Pleural spaces: Unremarkable. No pleural effusion. No pneumothorax. Heart/Mediastinum: Mild cardiomegaly. Bones/joints: Anchors in the right humerus. XR/XR chest 1V portable [id number] IMPRESSION: 1. No acute findings.
--- NOTE | 2021-01-28 19:16 | ECG_ITS ---
[facility] Test Date: 2021-01-28 Pat Name: David Cortes Department: Room: Gender: Male Environmental Planner: : 1965 Requested By: Yonny Howe Order Number: [id number] Mahesh MD: Penny Mac M.D. Measurements Intervals [place] Rate: 83 P: 26 MO: 161 QRS: 68 QRSD: 94 T: 60 QT: 387 QTc: 456 Interpretive Statements SINUS RHYTHM Compared to ECG 09/06/2020 09:25:52 No significant changes Electronically Signed On 01-28-2021 20:18:47 CDT by Penny Mac M.D. [id number]
--- NOTE | 2021-01-28 19:24 | ED_ITS ---
HPI - Chest Pain General: Chief Complaint: Chest Pain Stated Complaint: Shortness Of Breath\Rt arm and fingers Numb Time Seen by Provider: 01/28/21 19:03 History of Present Illness: HPI narrative: 55-year-old gentleman with right- sided pleuritic type chest pain radiating into his right arm. He states this started today. He is short of breath. He feels like he cannot take a deep breath. He says he is been sweating as well. MD complaint: chest pain Pertinent past history: other Onset (ago): hour(s) Timing of current episode: constant Prior episodes: Yes Onset: during rest Pain location: right chest Pain radiation: right arm Severity: moderate Quality: sharp Relieving factors: nothing Exacerbating factors: nothing Associated symptoms: Reports diaphoresis, dyspnea and leg edema (Reported); Deny abdominal pain, fever(s), nausea, palpitations or vomiting Review of Systems Const: Reports: diaphoresis; Denies: fever(s) Card: Reports: chest pain; Denies: palpitations Resp: Reports: dyspnea, non-productive cough and wheezing GI: Denies: abdominal pain, nausea or vomiting Neuro: Reports: dizziness [facility] ED PFSH: Medical History (Updated 01/28/21 @ 21:21 by Yonny Stephens DO) Cannabis dependence, uncomplicated Other schizophrenia Surgical History Status post club foot correction at Family History Mother Psychiatric illness Schizophrenia Social History Smoking and tobacco status: current every day smoker cigarettes Smoking risk assessment/counseling performed?: Yes Tobacco counseling given: counseling >3 minutes Alcohol intake: never Household members: other Details: roommate x 1 Physical Exam Const: COMMON NORMALS: alert GENERAL APPEARANCE: cooperative, well developed and ill appearing ORIENTATION/CONSCIOUSNESS: Yes oriented to person, Yes oriented to place and Yes oriented to time HENMT: COMMON NORMALS: normocephalic, external ears normal and Normal external nose present HEAD & SCALP: normocephalic FACE & SINUS: normal facial exam NOSE: Normal external nose present EXTERNAL EAR: Yes external ears normal Eye: COMMON NORMALS: Equal, round and reactive pupils present, EOMs intact bilaterally and conjunctivae normal EYELID: eyelids normal CONJUNCTIVA: Yes conjunctivae normal PUPIL: Yes Equal, round and reactive pupils present Neck/C-Spine: COMMON NORMALS: full ROM CERVICAL SPINE: Yes normal cervical lordosis and No Cervical spine tenderness Chest: COMMONS NORMALS: normal inspection of the chest Resp: COMMON NORMALS: negative for clear to auscultation bilaterally EFFORT & INSPECTION: Yes tachypneic, Yes respiratory distress, No retractions, Yes uses accessory muscles and No tracheal deviation AUSCULTATION: not clear to auscultation bilaterally, no rhonchi, wheezes and diminished lung sounds Cardio: COMMON NORMALS: regular rate and regular rhythm RATE: regular rate RHYTHM: regular rhythm HEART SOUNDS: no murmurs PERIPHERAL PULSES: radial pulses present GI: INSPECTION: No abdominal distension AUSCULTATION: No Hyperactive bowel sounds present and No Hypoactive bowel sounds present PALPATION: No Guarding due to palpation present (GI) and No Rigid due to palpation PERCUSSION: no dullness to percussion and no tympanic to percussion Neuro: SENSORIUM/ORIENTATION: Yes alert, Yes oriented to person, Yes oriented to place and Yes oriented to time Psych: COMMON NORMALS: mental status grossly normal Skin: COMMON NORMALS: no rashes or lesions noted GENERAL SKIN EXAM: no rashes or lesions noted Course Vital Signs: Vital signs: Vital Signs Temperature 99.3 F 01/28/21 18:45 Pulse Rate 84 01/28/21 22:40 Respiratory Rate 20 H 01/28/21 22:40 Blood Pressure 101/51 01/28/21 22:40 Pulse Oximetry 97 01/28/21 22:40 MDM - Chest Pain MDM Narrative: Medical decision making narrative: 55-year-old male with pleuritic chest pain and shortness of breath. He is nontachycardic. His oxygen saturations have been normal. There is an anxiety component. This improved after Ativan here. His laboratory is benign. His troponin is 21, which is at his baseline from previous troponins. His EKG does not show acute ST changes. It is a normal sinus rhythm with a normal axis and a rate of 80. His chest x- ray is negative. COVID-19 swabbing will be obtained for PCR. Lab Data: Labs: Lab Results 01/28/21 01/28/21 01/28/21 Range/Units 20:05 20:05 20:05 WBC 9.1 (4.0-10.0) 10^3/ uL RBC 5.19 (4.1-5.3) 10^6/u L Hgb 14.9 (11.7-16.6) g/dL Hct 45.9 (42.0-52.0) % MCV 88.4 (80-94) fL MCH 28.7 (28.0-34.0) pg MCHC 32.5 (30.0-36.0) g/dL RDW 13.7 (12.1-15.1) % Plt Count 361 (130-400) 10^3/c mm MPV 8.8 (7.4-10.4) fL Neut % (Auto) 73.8 % Lymph % (Auto) 16.4 % Crane % (Auto) 7.3 % Eos % (Auto) 1.3 % Baso % (Auto) 0.8 % Neut # (Auto) 6.69 (1.8-7.7) 10^3/u L Lymph # (Auto) 1.5 (0.8-4.8) 10^3/u L Crane # (Auto) 0.7 (0.2-0.9) 10^3/u L Eos # (Auto) 0.1 (0.0-0.8) 10^3/u L Baso # (Auto) 0.1 (0.0-0.1) 10^3/u L Nucleated RBC % (a uto) 0 % Nucleated RBCs # 0.0 /100WBC Sodium 136 (136-145) mmol/L Potassium 4.7 (3.5-5.1) mmol/L Chloride 98 (98-107) mmol/L Carbon Dioxide 26 (22-29) mmol/L Anion Gap 16.7 (5-19) BUN 21 H (6-20) mg/dL Creatinine 0.8 (0.7-1.2) mg/dL GFR Calculation 100.4 (90-130) mL/min Glucose 169 H (65-115) mg/dL Calculated Osmolal ity 289 (285-295) mOsm/k g Calcium 9.1 (8.5-10.5) mg/dL Total Bilirubin 0.2 (0.15-1.2) mg/dL AST 14 (0-40) U/L ALT 24 (0-41) U/L Alkaline Phosphata se 108 (40-130) IU/L Troponin T Baselin e 22 H (0-15) ng/L NT-Pro-B Natriuret Pep 374 H (0-125) pg/mL Total Protein 6.5 L (6.6-8.7) g/dL Albumin 4.0 (3.5-5.2) g/dL Globulin 2.5 (1.3-4.6) g/dL Discharge Plan Discharge Patient Disposition: Home Clinical Impression: Atypical chest pain, Asthma with COPD with exacerbation Condition: Stable Prescriptions: New ketorolac 10 mg tablet 10 mg PO TID PRN (Reason: pain) Qty: 10 RF: 0 Medrol (Abraham) 4 mg tablets,dose pack See Rx Instructions .ROUTE .COMPLEX Qty: 21 RF: 0 No Action Seroquel 300 mg tablet 600 mg PO BEDTIME Qty: 60 RF: 2 gabapentin 800 mg tablet 800 mg PO TID Qty: 90 RF: 2 nicotine 14 mg/24 hr patch 24 hour 1 patch TRANSDERMA Q24H Qty: 28 RF: 0 multivitamin [Multiple Vitamins] Tablet 1 tab PO DAILY RF: 0 albuterol sulfate 2.5 mg /3 mL (0.083 %) solution for nebulization 2.5 mg INHALATION Q4H PRN (Reason: shortness of breath or wheezing) Qty: 90 RF: 0 lactulose 10 gram/15 mL solution 15 ml PO BID Qty: 237 RF: 2 furosemide [Lasix] 20 mg tablet 20 mg PO DAILY Qty: 30 RF: 0 albuterol sulfate 90 mcg/actuation HFA aerosol inhaler 2 inh INHALATION Q6H PRN (Reason: shortness of breath or wheezing) Qty: 8 RF: 0 Discharge Orders: Discharge ED (Routine); Ordered 01/28/21 Ordered By: Yonny Stephens Patient Instructions: Asthma Exacerbation - Adult, Noncardiac Chest Pain (ED) Activity Restrictions/Additional Instructions: Quarantine at home until the results of your COVID-19 test are obtained and are negative. Medications as directed. Return for inability to control fever, worsening pain, worsening shortness of breath despite treatment. Use your albuterol inhaler 2 puffs, every 4 hours while awake for the next 48 hours, then as needed. Case management will contact you this coming week regarding an appointment with her primary care physician or provider for you to see. Coding Level of Care Code ED Cake Knocker for [facility] Fwd Exam Comprehensive
[2021-01-28] MEDS: LORazepam 2 mg/mL INJ 1 mL 1.5 MG IVP (20:10)
[2021-01-28 20:24] LABS: Basophils # 0.1 10^3/uL (0.0-0.1); Basophils % 0.8 %; Eosinophils # 0.1 10^3/uL (0.0-0.8); Eosinophils % 1.3 %; Hematocrit 45.9 % (42.0-52.0); Hemoglobin 14.9 g/dL (11.7-16.6); Lymphocytes # 1.5 10^3/uL (0.8-4.8); Lymphocytes % 16.4 %; Mean Corpuscular HGB Conc 32.5 g/dL (30.0-36.0); Mean Corpuscular Hemoglobin 28.7 pg (28.0-34.0); Mean Corpuscular Volume 88.4 fL (80-94); Mean Platelet Volume 8.8 fL (7.4-10.4); Monocytes # 0.7 10^3/uL (0.2-0.9); Monocytes % 7.3 %; Neutrophils # 6.69 10^3/uL (1.8-7.7); Neutrophils % 73.8 %; Nucleated Red Blood Cells % 0 %; Platelet Count 361 10^3/cmm (130-400); Red Blood Count 5.19 10^6/uL (4.1-5.3); Red Cell Distribution Width 13.7 % (12.1-15.1); White Blood Count 9.1 10^3/uL (4.0-10.0)
[2021-01-28 20:46] LABS: Troponin(5th) Baseline 22 ng/L (0-15)
[2021-01-28 20:54] LABS: Alanine Aminotransferase 24 U/L (0-41); Alkaline Phosphatase 108 IU/L (40-130); Aspartate Amino Transferase 14 U/L (0-40); Blood Urea Nitrogen 21 mg/dL (6-20); Calcium 9.1 mg/dL (8.5-10.5); Carbon Dioxide 26 mmol/L (22-29); Chloride 98 mmol/L (98-107); Globulin 2.5 g/dL (1.3-4.6); Glomerular Filtration Rate 100.4 mL/min (90-130); Glucose 169 mg/dL (65-115); NT Pro B Type Natriuretic Pept 374 pg/mL (0-125); Osmolality Calculated 289 mOsm/kg (285-295); Sodium 136 mmol/L (136-145); Total Bilirubin 0.2 mg/dL (0.15-1.2); Total Protein 6.5 g/dL (6.6-8.7)
[2021-01-28 20:59] LABS: Anion Gap 16.7 (5-19); Potassium 4.7 mmol/L (3.5-5.1)
[2021-01-28] MEDS: morphine 4 mg/mL SDV 1 mL IVP (22:11)
[2021-01-28] MEDS: ketorolac 30 mg/mL INJ 15 MG IVP (22:11)
[2021-01-28] MEDS: albuterol 8 gm MDI 2 PUFF INHALATION (22:15)
--- NOTE | 2021-01-30 11:48 | DCPLANNER ---
business process manager had message to speak with patient about getting established with a primary care physician. business process manager called phone number [phone], unable to speak with patient at this time and no voicemail set up at this time.
== END 2021-01-28 22:25 | disposition home or self-care (01) ==
PROVIDERS: Emergency Provider Emergency Medicine
DX: R07.89 Other chest pain (principal); J44.1 Chronic obstructive pulmonary disease with (acute) exacerbation; F17.210 Nicotine dependence, cigarettes, uncomplicated
CPT/HCPCS: 71045; 80053; 83880; 84484; 85025; 93005; 94640; 96374; 96375; 99284; J1885; J2060; J2270; J2930; J3535

== ENCOUNTER → 2021-02-08 10:08 | Outpatient (BNVA) | payer MEDICAID, SELFPAY | PROVIDERS: Visit Provider Nurse Practitioner | DX: F20.89 Other schizophrenia (principal); F17.210 Nicotine dependence, cigarettes, uncomplicated; F12.20 Cannabis dependence, uncomplicated; F11.21 Opioid dependence, in remission | CPT/HCPCS: 99214 ==

== ENCOUNTER 2021-03-18 12:25 | Emergency (ER) | payer MEDICAID, SELFPAY ==
[2021-03-18] VITALS (7 sets, daily range): BP systolic 119–145; BP diastolic 78–94; PULSE 81–89; RESP 16–28; TEMP 36.7; O2SAT 95–97; BMI 30.5
--- NOTE | 2021-03-18 13:19 | ECG_ITS ---
[facility] Test Date: 2021-03-18 Pat Name: David Cortes Department: Room: Gender: Male Bass Fisher: : 1965 Requested By: eLmuel Shirley Order Number: [id number] Reading MD: GREGORIO RAMON Measurements Intervals [place] Rate: 86 P: 72 MN: 181 QRS: 56 QRSD: 102 T: 44 QT: 387 QTc: 464 Interpretive Statements SINUS RHYTHM WITH OCCASIONAL VENTRICULAR PREMATURE COMPLEXES Compared to ECG 01/28/2021 19:37:03 Ventricular premature complex(es) now present Electronically Signed On 03-19-2021 18:35:00 CDT by GREGORIO RAMON [id number]
--- NOTE | 2021-03-18 13:19 | XRR_ITS ---
PROCEDURE INFORMATION: Exam: XR Right Shoulder Exam date and time: 03/18/2021 1:19 PM Age: 56 years old Clinical indication: Pain; Shoulder; Right; Additional info: Trauma TECHNIQUE: Imaging protocol: XR Right shoulder. Views: 2 or more views. COMPARISON: CR (UP EXM, ) 03/18/2021 1:52 PM FINDINGS: Bones/joints: Negative for acute bony abnormality. Metallic pins are seen in the humeral head Soft tissues: Unremarkable XR/XR shoulder RT min 2V* [id number] IMPRESSION: 1. No acute findings. 2. Metallic pins in the right humeral head
--- NOTE | 2021-03-18 13:19 | XRR_ITS ---
PROCEDURE INFORMATION: Exam: XR Chest Exam date and time: 03/18/2021 1:19 PM Age: 56 years old Clinical indication: Pain; Chest pressure; Additional info: Cp TECHNIQUE: Imaging protocol: XR of the chest. Views: 1 view. COMPARISON: CR XR chest 1V portable [id number] 01/28/2021 7:37 PM FINDINGS: Lungs: Unremarkable. No consolidation. Pleural spaces: Unremarkable. No pleural effusion. No pneumothorax. Heart/Mediastinum: Unremarkable. No cardiomegaly. Bones/joints: Unremarkable. XR/XR chest 1V portable [id number] IMPRESSION: No acute findings.
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
--- NOTE | 2021-03-18 13:24 | ED_ITS ---
HPI - Chest Pain General: Chief Complaint: Chest Pain Stated Complaint: CP/SOB/R.ELBOW PAIN Time Seen by Provider: 03/18/21 13:11 History of Present Illness: HPI narrative: 56-year-old male with history of COPD presents due to chest pain shortness of breath and right shoulder and elbow pain. States that yesterday he was working on a truck and a macho failed and the truck fell onto his right elbow causing him shoulder and elbow pain. Denies any other focal injury. Specifically denies any head injury neck injury or injury to the chest. However states that since then he has had pain in the shoulder and elbow. Denies pain in the wrist. Also states that since yesterday he started having achy nonexertional nonpleuritic chest pain that does not radiate back. Reports shortness of breath. Denies extremity pain or swelling. Denies fever cough or chills. Does have history of COPD and is noncompliant with medications. D-dimer is elevated but CTA does not reveal signs of PE. Covid swab is negative. Referral to case management provided in order to schedule stress test and PCP and cardiology follow-up. At this time I believe patient would be safe for discharge and outpatient follow-up. Return precautions provided. Plan was reviewed with the patient who expressed understanding. Questions answered. Patient will follow up with PCP. Patient discharged in stable condition. Review of Systems Narrative: - CONSTITUTIONAL: Denies weight loss, fever and chills. - HEENT: Denies changes in vision and hearing. - RESPIRATORY: Endorses shortness of breath, denies cough. - CV: Denies palpitations, endorses chest pain. - GI: Denies abdominal pain, nausea, vomiting and diarrhea. - : Denies dysuria and urinary frequency. - MSK: Denies myalgia, endorses right shoulder elbow pain - SKIN: Denies rash and pruritus. - NEUROLOGICAL: Denies headache, weakness, numbness and syncope. - PSYCHIATRIC: Denies suicidal ideation [facility] ED PFSH: Medical History (Updated 03/18/21 @ 21:22 by Lemuel Shirley MD) Cannabis dependence, uncomplicated Other schizophrenia Surgical History Status post club foot correction at Family History Mother Psychiatric illness Schizophrenia Social History Smoking and tobacco status: current every day smoker cigarettes Smoking risk assessment/counseling performed?: Yes Tobacco counseling given: counseling >3 minutes Alcohol intake: never Household members: other Details: roommate x 1 Physical Exam Narrative: EXAM NARRATIVE: - GENERAL: Alert and oriented x 3. No acute distress. Well-nourished. - EYES: EOMI. Anicteric. - HENT: Moist mucous membranes. No scleral icterus. No cervical lymphadenopathy. - LUNGS: Bilateral wheezing - CARDIOVASCULAR: Regular rate and rhythm. No murmur. No JVD. - ABDOMEN: Soft, non-tender and non-distended. No palpable masses. - EXTREMITIES: No edema. Tenderness to right shoulder and right elbow, compartments are soft, extremities otherwise neurovascularly intact, no skin breakdown or lacerations, no other focal tenderness except as above. - SKIN: No rashes or lesions. Warm. - NEUROLOGIC: No meningismus or focal neurological deficits. CN II-XII grossly intact. - PSYCHIATRIC: Cooperative. Appropriate mood and affect. Course Vital Signs: Vital signs: Vital Signs Temperature 98.1 F 03/18/21 12:50 Pulse Rate 87 03/18/21 19:47 Respiratory Rate 16 03/18/21 19:47 Blood Pressure 145/94 03/18/21 19:47 Pulse Oximetry 96 03/18/21 19:47 MDM - Chest Pain MDM Narrative: Medical decision making narrative: 56-year-old male presents with chest pain and right arm pain. In regards to his right arm pain states that yesterday he had a traumatic episode when a heavy object falling on his arm. On exam he is neurovascularly intact. Compartments are soft to palpation. CK level is within normal. X-rays do not reveal any fracture dislocation. There is no significant bruising. Do not suspect compartment syndrome at this time. In regards to his chest pain and shortness of breath, EKG and troponins do not have any sign of acute ischemic change. Does have some wheezing. Improved with albuterol and steroids. Prescription for prednisone and albuterol provided. BNP is also mildly elevated. However patient does not appear to be volume overloaded and x-ray does not reveal any signs of pulmonary edema. There is however some cardiomegaly. Will start on low-dose of Lasix. UDS also positive for amphetamines. Patient was counseled regarding drug cessation. Heart score 3. Patient is chest pain-free at this time. At this time I believe patient would be safe for discharge and outpatient follow-up. Return precautions provided. Plan was reviewed with the patient who expressed understanding. Questions answered. Patient will follow up with PCP. Patient discharged in stable condition. Lab Data: Labs: Lab Results 03/18/21 03/18/21 03/18/21 Range/Units 13:30 13:30 13:30 WBC 7.5 (4.0-10.0) 10^3/ uL RBC 4.97 (4.1-5.3) 10^6/u L Hgb 14.2 (11.7-16.6) g/dL Hct 44.7 (42.0-52.0) % MCV 89.9 (80-94) fl MCH 28.6 (28.0-34.0) pg MCHC 31.8 (30.0-36.0) g/dL RDW 14.5 (12.1-15.1) % Plt Count 282 (130-400) 10^3/c mm MPV 8.5 (7.4-10.4) fL Neut % (Auto) 61.5 % Lymph % (Auto) 26.9 % [place] % (Auto) 8.9 % Eos % (Auto) 1.7 % Baso % (Auto) 0.9 % Neut # (Auto) 4.60 (1.8-7.7) 10^3/u L Lymph # (Auto) 2.0 (0.8-4.8) 10^3/u L [place] # (Auto) 0.7 (0.2-0.9) 10^3/u L Eos # (Auto) 0.1 (0.0-0.8) 10^3/u L Baso # (Auto) 0.1 (0.0-0.1) 10^3/u L Nucleated RBC % (a uto) 0 % Nucleated RBCs # 0.0 /100WBC PT (12.1-14.9) SECO NDS INR (0.8-1.2) APTT (23.9-36.7) SECO NDS D-Dimer (0-0.59) ug/mIFE U Sodium 139 (136-145) mmol/L Potassium 4.2 (3.5-5.1) mmol/L Chloride 103 (98-107) mmol/L Carbon Dioxide 26 (22-29) mmol/L Anion Gap 14.2 (5-19) BUN 13 (6-20) mg/dL Creatinine 0.8 (0.7-1.2) mg/dL GFR Calculation 100.0 (90-130) mL/min Glucose 122 H (65-115) mg/dL Calculated Osmolal ity 289 (285-295) mOsm/k g Calcium 9.0 (8.5-10.5) mg/dL Total Bilirubin 0.3 (0.15-1.2) mg/dL AST 13 (0-40) U/L ALT 13 (0-41) U/L Alkaline Phosphata se 103 (40-130) IU/L Creatine Kinase 148 (39-308) U/L Troponin T Baselin e 21 H (0-15) ng/L Troponin T 120 Min [place] (0-15) ng/L Delta Troponin T (0-10) ABS# Troponin T Hi Sens 6Hr (0-15) ng/L Troponin T Hi Sens 6Hr Delta (0-12) ng/L NT-Pro-B Natriuret Pep 507 H (0-125) pg/mL Total Protein 6.3 L (6.6-8.7) g/dL Albumin 4.0 (3.5-5.2) g/dL Globulin 2.3 (1.3-4.6) g/dL Urine Opiates Scre en (Negative) ng/mL Ur Barbiturates Sc reen (Negative) ng/mL Ur Phencyclidine S crn (Negative) ng/mL Ur Amphetamines Sc reen (Negative) ng/mL U Benzodiazepines Scrn (Negative) ng/mL Urine Cocaine Scre en (Negative) ng/mL U Marijuana (THC) Screen (Negative) ng/mL Ethyl Alcohol < 10 (0-10) mg/dL SARS-CoV-2 Ag (Rap id) (Negative) 03/18/21 03/18/21 03/18/21 Range/Units 14:57 17:30 19:49 WBC (4.0-10.0) 10^3/ uL RBC (4.1-5.3) 10^6/u L Hgb (11.7-16.6) g/dL Hct (42.0-52.0) % MCV (80-94) fl MCH (28.0-34.0) pg MCHC (30.0-36.0) g/dL RDW (12.1-15.1) % Plt Count (130-400) 10^3/c mm MPV (7.4-10.4) fL Neut % (Auto) % Lymph % (Auto) % [place] % (Auto) % Eos % (Auto) % Baso % (Auto) % Neut # (Auto) (1.8-7.7) 10^3/u L Lymph # (Auto) (0.8-4.8) 10^3/u L [place] # (Auto) (0.2-0.9) 10^3/u L Eos # (Auto) (0.0-0.8) 10^3/u L Baso # (Auto) (0.0-0.1) 10^3/u L Nucleated RBC % (a uto) % Nucleated RBCs # /100WBC PT 13.10 (12.1-14.9) SECO NDS INR 0.96 (0.8-1.2) APTT 30.6 (23.9-36.7) SECO NDS D-Dimer 0.60 H (0-0.59) ug/mIFE U Sodium (136-145) mmol/L Potassium (3.5-5.1) mmol/L Chloride (98-107) mmol/L Carbon Dioxide (22-29) mmol/L Anion Gap (5-19) BUN (6-20) mg/dL Creatinine (0.7-1.2) mg/dL GFR Calculation (90-130) mL/min Glucose (65-115) mg/dL Calculated Osmolal ity (285-295) mOsm/k g Calcium (8.5-10.5) mg/dL Total Bilirubin (0.15-1.2) mg/dL AST (0-40) U/L ALT (0-41) U/L Alkaline Phosphata se (40-130) IU/L Creatine Kinase (39-308) U/L Troponin T Baselin e (0-15) ng/L Troponin T 120 Min [place] 17.63 H (0-15) ng/L Delta Troponin T -3.37 L (0-10) ABS# Troponin T Hi Sens 6Hr (0-15) ng/L Troponin T Hi Sens 6Hr Delta (0-12) ng/L NT-Pro-B Natriuret Pep (0-125) pg/mL Total Protein (6.6-8.7) g/dL Albumin (3.5-5.2) g/dL Globulin (1.3-4.6) g/dL Urine Opiates Scre en Negative (Negative) ng/mL Ur Barbiturates Sc reen Negative (Negative) ng/mL Ur Phencyclidine S crn Negative (Negative) ng/mL Ur Amphetamines Sc reen Positive H (Negative) ng/mL U Benzodiazepines Scrn Negative (Negative) ng/mL Urine Cocaine Scre en Negative (Negative) ng/mL U Marijuana (THC) Screen Positive H (Negative) ng/mL Ethyl Alcohol (0-10) mg/dL SARS-CoV-2 Ag (Rap id) (Negative) 03/18/21 03/18/21 Range/Units 20:12 20:30 WBC (4.0-10.0) 10^3/ uL RBC (4.1-5.3) 10^6/u L Hgb (11.7-16.6) g/dL Hct (42.0-52.0) % MCV (80-94) fl MCH (28.0-34.0) pg MCHC (30.0-36.0) g/dL RDW (12.1-15.1) % Plt Count (130-400) 10^3/c mm MPV (7.4-10.4) fL Neut % (Auto) % Lymph % (Auto) % [place] % (Auto) % Eos % (Auto) % Baso % (Auto) % Neut # (Auto) (1.8-7.7) 10^3/u L Lymph # (Auto) (0.8-4.8) 10^3/u L [place] # (Auto) (0.2-0.9) 10^3/u L Eos # (Auto) (0.0-0.8) 10^3/u L Baso # (Auto) (0.0-0.1) 10^3/u L Nucleated RBC % (a uto) % Nucleated RBCs # /100WBC PT (12.1-14.9) SECO NDS INR (0.8-1.2) APTT (23.9-36.7) SECO NDS D-Dimer (0-0.59) ug/mIFE U Sodium (136-145) mmol/L Potassium (3.5-5.1) mmol/L Chloride (98-107) mmol/L Carbon Dioxide (22-29) mmol/L Anion Gap (5-19) BUN (6-20) mg/dL Creatinine (0.7-1.2) mg/dL GFR Calculation (90-130) mL/min Glucose (65-115) mg/dL Calculated Osmolal ity (285-295) mOsm/k g Calcium (8.5-10.5) mg/dL Total Bilirubin (0.15-1.2) mg/dL AST (0-40) U/L ALT (0-41) U/L Alkaline Phosphata se (40-130) IU/L Creatine Kinase (39-308) U/L Troponin T Baselin e (0-15) ng/L Troponin T 120 Min [place] (0-15) ng/L Delta Troponin T (0-10) ABS# Troponin T Hi Sens 6Hr 15.32 H (0-15) ng/L Troponin T Hi Sens 6Hr Delta -5.68 L (0-12) ng/L NT-Pro-B Natriuret Pep (0-125) pg/mL Total Protein (6.6-8.7) g/dL Albumin (3.5-5.2) g/dL Globulin (1.3-4.6) g/dL Urine Opiates Scre en (Negative) ng/mL Ur Barbiturates Sc reen (Negative) ng/mL Ur Phencyclidine S crn (Negative) ng/mL Ur Amphetamines Sc reen (Negative) ng/mL U Benzodiazepines Scrn (Negative) ng/mL Urine Cocaine Scre en (Negative) ng/mL U Marijuana (THC) Screen (Negative) ng/mL Ethyl Alcohol (0-10) mg/dL SARS-CoV-2 Ag (Rap id) Negative (Negative) EKG Data^: EKG 2: Other EKG comments: Time is 1577, sinus rhythm with occasional PVC, otherwise no sign of acute ischemia or other acute abnormality. Discharge Plan Discharge Patient Disposition: Home Clinical Impression: Chest pain, COPD exacerbation, CHF exacerbation, Arm pain Condition: Stable Prescriptions: New prednisone 50 mg tablet 50 mg PO DAILY Qty: 5 RF: 0 Lasix 20 mg tablet 20 mg PO DAILY Qty: 7 RF: 0 No Action Seroquel 300 mg tablet 600 mg PO BEDTIME Qty: 60 RF: 2 gabapentin 800 mg tablet 800 mg PO TID Qty: 90 RF: 2 multivitamin [Multiple Vitamins] Tablet 1 tab PO DAILY RF: 0 albuterol sulfate 2.5 mg /3 mL (0.083 %) solution for nebulization 2.5 mg INHALATION Q4H PRN (Reason: shortness of breath or wheezing) Qty: 90 RF: 0 lactulose 10 gram/15 mL solution 15 ml PO BID Qty: 237 RF: 2 albuterol sulfate 90 mcg/actuation HFA aerosol inhaler 2 inh INHALATION Q6H PRN (Reason: shortness of breath or wheezing) Qty: 8 RF: 0 ketorolac 10 mg tablet 10 mg PO TID PRN (Reason: pain) Qty: 10 RF: 0 Discharge Orders: Discharge ED (Routine); Ordered 03/18/21 Ordered By: Lemuel Shirley Patient Instructions: Heart Failure (ED), Chest Pain (ED), Chronic Obstructive Pulmonary Disease (ED), Opioid Safety Coding Level of Care Code ED [employer] for Panchito Cooper
[2021-03-18 13:40] LABS: Basophils # 0.1 10^3/uL (0.0-0.1); Basophils % 0.9 %; Eosinophils # 0.1 10^3/uL (0.0-0.8); Eosinophils % 1.7 %; Hematocrit 44.7 % (42.0-52.0); Hemoglobin 14.2 g/dL (11.7-16.6); Lymphocytes % 26.9 %; Mean Corpuscular HGB Conc 31.8 g/dL (30.0-36.0); Mean Corpuscular Hemoglobin 28.6 pg (28.0-34.0); Mean Corpuscular Volume 89.9 fl (80-94); Mean Platelet Volume 8.5 fL (7.4-10.4); Monocytes # 0.7 10^3/uL (0.2-0.9); Monocytes % 8.9 %; Neutrophils % 61.5 %; Nucleated Red Blood Cells % 0 %; Platelet Count 282 10^3/cmm (130-400); Red Blood Count 4.97 10^6/uL (4.1-5.3); Red Cell Distribution Width 14.5 % (12.1-15.1); White Blood Count 7.5 10^3/uL (4.0-10.0)
[2021-03-18 14:03] LABS: Troponin(5th) Baseline 21 ng/L (0-15)
[2021-03-18] MEDS: ipratropium-albuterol 3 mL Neb INHALATION (14:08)
[2021-03-18 14:11] LABS: Alanine Aminotransferase 13 U/L (0-41); Alkaline Phosphatase 103 IU/L (40-130); Anion Gap 14.2 (5-19); Aspartate Amino Transferase 13 U/L (0-40); Blood Urea Nitrogen 13 mg/dL (6-20); Carbon Dioxide 26 mmol/L (22-29); Chloride 103 mmol/L (98-107); Creatine Phosphokinase 148 U/L (39-308); Globulin 2.3 g/dL (1.3-4.6); Glucose 122 mg/dL (65-115); NT Pro B Type Natriuretic Pept 507 pg/mL (0-125); Osmolality Calculated 289 mOsm/kg (285-295); Potassium 4.2 mmol/L (3.5-5.1); Sodium 139 mmol/L (136-145); Total Bilirubin 0.3 mg/dL (0.15-1.2); Total Protein 6.3 g/dL (6.6-8.7)
[2021-03-18] MEDS: aspirin 81 mg Chew Tablet 324 MG PO (14:42)
[2021-03-18 14:59] LABS: Alcohol Level < 10 mg/dL (0-10)
--- NOTE | 2021-03-18 15:19 | ECG_ITS ---
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
[2021-03-18 16:26] LABS: INR 0.96 (0.8-1.2)
[2021-03-18 16:27] LABS: Partial Thromboplastin Time 30.6 SECONDS (23.9-36.7)
--- NOTE | 2021-03-18 17:43 | PC.NURSE ---
VITALS FROM 1500 TO 1720 PRINTED AND PLACED IN CHART
[2021-03-18 18:35] LABS: Troponin 5 2HR 17.63 ng/L (0-15)
[2021-03-18 19:06] LABS: Troponin 5 2HR Delta -3.37 ABS# (0-10)
--- NOTE | 2021-03-18 19:13 | CTR_ITS ---
PROCEDURE INFORMATION: Exam: CTA Chest With Contrast Exam date and time: 03/18/2021 7:13 PM Age: 56 years old Clinical indication: Pain; Shortness of breath; Chest pressure; Patient HX: C/O cp and SOB; Additional info: Pe TECHNIQUE: Imaging protocol: Computed tomographic angiography of the chest with contrast. 3D rendering (Not supervised by radiologist): MIP and/or 3D reconstructed images were created by the technologist. Radiation optimization: All CT scans at this facility use at least one of these dose optimization techniques: automated exposure control; mA and/or kV adjustment per patient size (includes targeted exams where dose is matched to clinical indication); or iterative reconstruction. Contrast material: OMNI 350; Contrast volume: 76 ml; Contrast route: INTRAVENOUS (IV); COMPARISON: CR (CHEST, ) 03/18/2021 1:56 PM RADIATION DOSE METRICS: Total DLP (mGy-cm): 653.65 FINDINGS: Pulmonary arteries: Pulmonary arteries are well opacified. Pulmonary arteries are normal in caliber. No filling defects are demonstrated. No evidence of pulmonary embolism. Aorta: The thoracic aorta appears unremarkable. No aneurysm or dissection demonstrated. Lungs: Minimal bronchiectasis of the central airways bilaterally. No mucus plugging. Mild dependent atelectasis in the bilateral lower lobes. No consolidative pulmonary infiltrate noted. Pleural spaces: No pleural effusion or pneumothorax noted. Heart: Mild cardiomegaly is noted. There is no significant pericardial effusion present. Lymph nodes: Nonspecific mediastinal and hilar lymph nodes are noted, measuring up to 5 mm short axis. Bones/joints: Degenerative thoracic spine changes. No fracture or other acute osseous abnormality. Soft tissues: Unremarkable. CT/CT angio chest PE protcl [id number] IMPRESSION: 1. Pulmonary arteries appear unremarkable. No evidence of pulmonary embolism. 2. No evidence of thoracic aortic aneurysm or dissection. 3. Mild cardiomegaly is noted. 4. Minimal bronchiectasis of the central airways bilaterally. No mucus plugging. 5. No consolidative pulmonary infiltrate noted. Radiation Dose CTDIVOL = (mGy): DLP = 653.65 (mGy-cm)
--- NOTE | 2021-03-18 19:19 | ECG_ITS ---
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
[2021-03-18] MEDS: iohexol 350 mg/mL 100 mL Btl IV (20:02)
[2021-03-18 20:41] LABS: Amphetamines Screen Urine Positive (Negative); Barbiturates Screen Urine Negative (Negative); Benzodiazepines Screen Urine Negative (Negative); Cocaine Screen Urine Negative (Negative); Opiate Screen Urine Negative (Negative); PCP Screen Urine Negative (Negative); THC Screen Urine Positive (Negative)
[2021-03-18 20:55] LABS: Troponin 5 6HR 15.32 ng/L (0-15)
[2021-03-18 20:58] LABS: Troponin 5 6HR Delta -5.68 ng/L (0-12)
[2021-03-18 21:11] LABS: SARS Covid-2 Antigen Negative (Negative)
--- NOTE | 2021-03-21 14:36 | DCPLANNER ---
manager rehab had message to schedule a follow up appointment for patient with heart care, and to get patient established with a primary care physician. manager rehab called heart care, spoke with Taryn, gave clinic patients information. A follow up appointment was scheduled for Sunday, April 04, 2021 at 2:[address] Mac. manager rehab called [facility], spoke with Eda, gave clinic patients information. A follow up appointment was scheduled for March at 9:[address] Seo. manager rehab called and gave patient information for both appointments.
--- NOTE | 2021-03-22 08:53 | DCPLANNER ---
car manager had message to schedule an outpatient stress test for patient. car manager faxed signed order to centralized scheduling, who will call patient with appointment information.
--- NOTE | 2021-04-06 11:23 | DCPLANNER ---
Patient had a follow up appointment scheduled for an outpatient stress test on 04.04.21 - patient did not attend appointment. Patient had a follow up appointment scheduled for 03.22.[address] Woodson - patient did not attend appointment.
--- NOTE | 2021-04-13 14:43 | DCPLANNER ---
Addendum entered by Amy Jacome 08/02/21 17:31: Patient had an out patient stress test scheduled - patient did not attend appointment. Original Note: Patient has an outpatient stress test scheduled for April at 9:15. Centralized scheduling will call patient with appointment information.
== END 2021-03-18 21:49 | disposition home or self-care (01) ==
PROVIDERS: Emergency Provider Emergency Medicine
DX: R07.9 Chest pain, unspecified (principal); J44.1 Chronic obstructive pulmonary disease with (acute) exacerbation; I11.0 Hypertensive heart disease with heart failure; I50.9 Heart failure, unspecified; M79.601 Pain in right arm; F17.210 Nicotine dependence, cigarettes, uncomplicated; Z20.822 Contact with and (suspected) exposure to COVID-19
CPT/HCPCS: 71045; 71275; 73030; 73080; 80053; 80306; 80307; 82550; 83880; 84484; 85025; 85378; 85610; 85730; 87426; 93005; 94640; 96374; 99284; J2930; Q9967

== ENCOUNTER 2021-04-12 09:56 | Emergency (ER) | payer MEDICAID, SELFPAY ==
[2021-04-12 10:19] VITALS: BP 140/79; PULSE 87; RESP 22; TEMP 37; O2SAT 96; BMI 30.5
--- NOTE | 2021-04-12 10:33 | XR_ITS ---
WS: [id number] Exam: XR elbow RT min 3V* [id number] Date/Time of Exam: 04/12/2021 10:35 AM Reason For Exam: injury/continued pain No acute fracture or dislocation. No joint effusion is seen. A small length of opaque wire is noted a long the distal lateral humerus and may represent a soft tissue foreign body. XR/XR elbow RT min 3V* [id number] IMPRESSION: 1. No fracture or joint effusion. 2. Possible soft tissue foreign body along the distal lateral humerus that may represent a retained length of wire or suture.
--- NOTE | 2021-04-12 10:34 | W.ED.UPPEXIN ---
Documented by User: BOB Keys 04/12/21 13:36 HPI - Extremity Injury (Upper) General: Chief Complaint: Extremity Injury, Upper Stated Complaint: RIGHT ARM PAIN Time Seen by Provider: 04/12/21 10:03 Source: patient Mode of arrival: ambulatory Limitations: no limitations History of Present Illness: HPI narrative: Patient is a 56-year-old male who presents to ED today for further evaluation of his right elbow pain. Patient tells me he initially injured the elbow approximately 3 weeks ago. He was seen at our facility at that time and had x-rays that were negative. Patient states he was working on a vehicle when one of the jacks failed and states the vehicle fell onto his R shoulder/arm/elbow. He is no longer having shoulder or arm pain but states his elbow continues to bother him and states he hasn't been able to use it. He states that it is incredibly tender for him to try to extend it. He complains of numbness to his right hand however states this is been present at least 6 months . No fevers. He does not remember any lacerations/abrasions/wounds to the elbow during the initial trauma. Reports hx of MRSA. He is an active methamphetamine user. complaint: injury to: right and elbow Onset (ago): week(s) Other Extremity Injury: Right: elbow Other injuries: none Place: home Severity: severe Relieving factors: immobilization Exacerbating factors: movement of extremity Context: direct blow Associated symptoms: Reports no associated symptoms; Denies neck pain or weakness in extremities Review of Systems Const: Denies: fever(s), chills, body aches, fatigue or malaise Card: Denies: chest pain Resp: Denies: dyspnea GI: Denies: nausea or vomiting Musc: Reports: joint pain (R elbow) and joint swelling (R elbow); Denies: neck pain, back pain, extremity pain or extremity swelling Skin/Breast: Denies: new lesions or changes in skin color Neuro: Reports: sensory changes (reports tinging to R hand/fingers); Denies: weakness in extremities FORMERLY [facility], 1928–1983 ED PFSH: Medical History Cannabis dependence, uncomplicated Other schizophrenia Surgical History Status post club foot correction at Family History Mother Psychiatric illness Schizophrenia Social History Smoking and tobacco status: current every day smoker cigarettes Smoking risk assessment/counseling performed?: Yes Tobacco counseling given: counseling >3 minutes Alcohol intake: never Household members: other Details: roommate x 1 Physical Exam Const: COMMON NORMALS: no acute distress, patient oriented x3, no limitations and alert GENERAL APPEARANCE: cooperative NUTRITIONAL APPEARANCE: obese ORIENTATION/CONSCIOUSNESS: Yes awake, Yes oriented to person, Yes oriented to place and Yes oriented to time HENMT: COMMON NORMALS: normocephalic and atraumatic HEAD & SCALP: normocephalic and atraumatic Neck/C-Spine: COMMON NORMALS: full ROM CERVICAL SPINE: Yes cervical ROM normal, No Cervical spine tenderness and No Paracervical muscle tenderness Extremity: GENERAL: Yes normal exam except as noted RIGHT UPPER EXTREMITY: Yes elbow joint OTHER: R elbow joint is minimally swollen with warmth; no obvious erythema/cellulitis; no signs of trauma such as abrasions/lacerations/sores/etc; pt holds elbow in flexed position; he is hesitant about extension but can passively extend joint about 60% until pain prohibits; radial pulse and cap refill normal; sensory intact Neuro: COMMON NORMALS: patient oriented x3, moves all extremities, no focal motor deficits and no sensory deficits noted SENSORIUM/ORIENTATION: Yes alert, Yes oriented to person, Yes oriented to place and Yes oriented to time Skin: COMMON NORMALS: no rashes or lesions noted GENERAL SKIN EXAM: no rashes or lesions noted TRAUMA: no lacerations or abrasions Course Vital Signs: Vital signs: Vital Signs Temperature 98.6 F 04/12/21 10:19 Pulse Rate 83 04/12/21 10:47 Respiratory Rate 14 04/12/21 10:47 Blood Pressure 140/79 04/12/21 10:19 Pulse Oximetry 96 04/12/21 10:47 MDM - Extremity Injury (Upper) MDM Narrative: Medical decision making narrative: History and physical exam is somewhat limited as patient appears actively under the influence of amphetamines. Ultimately patient is continuing to have pain in his elbow 3 wks post injury. Joint is mildly warm to the touch. XR is negative. There is a fb present that was present on previous films-patient has no idea what this could be. Concern would be possible septic arthritis/bursitis. Will obtain labs at this time. Labs overall are unremarkable. Patient is not tachycardic or febrile. He has a normal white count. CRP scantly elevated at 10.2. During re-examination patient has more ROM than originally stated especially if you can distract him during exam. I had Dr. Baker also evaluate patient and he does not recommend anything further at this time such as aspiration. Recommend follow-up with PCP however patient has had several outpatient follow-ups scheduled with case management and never follows through. Lab Data: Labs: Lab Results 04/12/21 04/12/21 11:36 11:36 WBC 7.7 10^3/uL 10^3/ uL (4.0-10.0) RBC 4.71 10^6/uL 10^6 /uL (4.1-5.3) Hgb 13.4 g/dL g/dL (11.7-16.6) Hct 41.5 % L % (42.0-52.0) MCV 88.1 fl fl (80-94) MCH 28.5 pg pg (28.0-34.0) MCHC 32.3 g/dL g/dL (30.0-36.0) RDW 13.8 % % (12.1-15.1) Plt Count 242 10^3/cmm 10^3 /cmm (130-400) MPV 9.8 fL fL (7.4-10.4) Neut % (Auto) 67.5 % % Lymph % (Auto) 22.3 % % [place] % (Auto) 7.8 % % Eos % (Auto) 1.4 % % Baso % (Auto) 0.7 % % Neut # (Auto) 5.18 10^3/uL 10^3 /uL (1.8-7.7) Lymph # (Auto) 1.7 10^3/uL 10^3/ uL (0.8-4.8) [place] # (Auto) 0.6 10^3/uL 10^3/ uL (0.2-0.9) Eos # (Auto) 0.1 10^3/uL 10^3/ uL (0.0-0.8) Baso # (Auto) 0.1 10^3/uL 10^3/ uL (0.0-0.1) Nucleated RBC % (a uto) 0 % % Nucleated RBCs # 0.0 /100WBC /100W BC Sodium 137 mmol/L mmol/L (136-145) Potassium 3.8 mmol/L mmol/L (3.5-5.1) Chloride 100 mmol/L mmol/L (98-107) Carbon Dioxide 26 mmol/L mmol/L (22-29) Anion Gap 14.8 (5-19) BUN 16 mg/dL mg/dL (6-20) Creatinine 0.8 mg/dL mg/dL (0.7-1.2) GFR Calculation 100.0 mL/min mL/m in (90-130) Glucose 114 mg/dL mg/dL (65-115) Calculated Osmolal ity 286 mOsm/kg mOsm/ kg (285-295) Calcium 8.7 mg/dL mg/dL (8.5-10.5) Total Bilirubin 0.3 mg/dL mg/dL (0.15-1.2) AST 11 U/L U/L (0-40) ALT 11 U/L U/L (0-41) Alkaline Phosphata se 98 IU/L IU/L (40-130) C-Reactive Protein 10.2 mg/L H mg/L (0.0-4.9) Total Protein 6.9 g/dL g/dL (6.6-8.7) Albumin 3.8 g/dL g/dL (3.5-5.2) Globulin 3.1 g/dL g/dL (1.3-4.6) Imaging Data^: XR R elbow: Radiologist's impression: [facility] [address] [place] [address] XRay Report Signed Patient: David Cortes Unit #: [id number] : 1965 Age/Sex: 56 / M ADM Date: 04/12/21 Loc: ER Room/Bed: Attending Dr: Ordering Provider/Ordering MD: Ankita Miguel Date of Service: 04/12/21 Procedure(s): XR elbow RT min 3V* [id number] Accession Number(s): [id number] Report Number: [id number] WS: [id number] Exam: XR elbow RT min 3V* [id number] Date/Time of Exam: 04/12/2021 10:35 AM Reason For Exam: injury/continued pain No acute fracture or dislocation. No joint effusion is seen. A small length of opaque wire is noted along the distal lateral humerus and may represent a soft tissue foreign body. XR/XR elbow RT min 3V* [id number] IMPRESSION: 1. No fracture or joint effusion. 2. Possible soft tissue foreign body along the distal lateral humerus that may represent a retained length of wire or suture. Dictated By: Bubba Corbin DO Signed By: Bubba Corbin DO Signed Date/Time: 04/12/21 1051 DD/ 1050 Discharge Plan Discharge Patient Disposition: Home Clinical Impression: Pain and swelling of right elbow Condition: Stable Prescriptions: No Action Seroquel 300 mg tablet 600 mg PO BEDTIME Qty: 60 RF: 2 gabapentin 800 mg tablet 800 mg PO TID Qty: 90 RF: 2 prednisone 50 mg tablet 50 mg PO DAILY Qty: 5 RF: 0 Lasix 20 mg tablet 20 mg PO DAILY Qty: 7 RF: 0 multivitamin [Multiple Vitamins] Tablet 1 tab PO DAILY RF: 0 albuterol sulfate 2.5 mg /3 mL (0.083 %) solution for nebulization 2.5 mg INHALATION Q4H PRN (Reason: shortness of breath or wheezing) Qty: 90 RF: 0 lactulose 10 gram/15 mL solution 15 ml PO BID Qty: 237 RF: 2 albuterol sulfate 90 mcg/actuation HFA aerosol inhaler 2 inh INHALATION Q6H PRN (Reason: shortness of breath or wheezing) Qty: 8 RF: 0 ketorolac 10 mg tablet 10 mg PO TID PRN (Reason: pain) Qty: 10 RF: 0 Discharge Orders: Discharge ED (Routine); Ordered 04/12/21 Ordered By: Ankita Miguel Referrals: Jonel Seo MD [Primary Care Provider] - 04/23/21 9:00 am Activity Restrictions/Additional Instructions: As we discussed continue to ice the elbow. As we discussed please follow-up with primary care for continued evaluation of your discomfort. Coding Level of Care Code ED Clock And Watch Hands Painter for Lorenag Katid Exam Detailed Documented by User: Kenrick Baker MD 04/12/21 15:29 HPI - Extremity Injury (Upper) General: Chief Complaint: Extremity Injury, Upper Stated Complaint: RIGHT ARM PAIN Time Seen by Provider: 04/12/21 10:03 PFSH ED PFSH: Medical History Cannabis dependence, uncomplicated Other schizophrenia Surgical History Status post club foot correction at Family History Mother Psychiatric illness Schizophrenia Social History Smoking and tobacco status: current every day smoker cigarettes Smoking risk assessment/counseling performed?: Yes Tobacco counseling given: counseling >3 minutes Alcohol intake: never Household members: other Details: roommate x 1 Course Vital Signs: Vital signs: Vital Signs Temperature 98.6 F 04/12/21 10:19 Pulse Rate 83 04/12/21 10:47 Respiratory Rate 14 04/12/21 10:47 Blood Pressure 140/79 04/12/21 10:19 Pulse Oximetry 96 04/12/21 10:47 MDM - Extremity Injury (Upper) Lab Data: Labs: Lab Results 04/12/21 04/12/21 11:36 11:36 WBC 7.7 10^3/uL 10^3/ uL (4.0-10.0) RBC 4.71 10^6/uL 10^6 /uL (4.1-5.3) Hgb 13.4 g/dL g/dL (11.7-16.6) Hct 41.5 % L % (42.0-52.0) MCV 88.1 fl fl (80-94) MCH 28.5 pg pg (28.0-34.0) MCHC 32.3 g/dL g/dL (30.0-36.0) RDW 13.8 % % (12.1-15.1) Plt Count 242 10^3/cmm 10^3 /cmm (130-400) MPV 9.8 fL fL (7.4-10.4) Neut % (Auto) 67.5 % % Lymph % (Auto) 22.3 % % [place] % (Auto) 7.8 % % Eos % (Auto) 1.4 % % Baso % (Auto) 0.7 % % Neut # (Auto) 5.18 10^3/uL 10^3 /uL (1.8-7.7) Lymph # (Auto) 1.7 10^3/uL 10^3/ uL (0.8-4.8) [place] # (Auto) 0.6 10^3/uL 10^3/ uL (0.2-0.9) Eos # (Auto) 0.1 10^3/uL 10^3/ uL (0.0-0.8) Baso # (Auto) 0.1 10^3/uL 10^3/ uL (0.0-0.1) Nucleated RBC % (a uto) 0 % % Nucleated RBCs # 0.0 /100WBC /100W BC Sodium 137 mmol/L mmol/L (136-145) Potassium 3.8 mmol/L mmol/L (3.5-5.1) Chloride 100 mmol/L mmol/L (98-107) Carbon Dioxide 26 mmol/L mmol/L (22-29) Anion Gap 14.8 (5-19) BUN 16 mg/dL mg/dL (6-20) Creatinine 0.8 mg/dL mg/dL (0.7-1.2) GFR Calculation 100.0 mL/min mL/m in (90-130) Glucose 114 mg/dL mg/dL (65-115) Calculated Osmolal ity 286 mOsm/kg mOsm/ kg (285-295) Calcium 8.7 mg/dL mg/dL (8.5-10.5) Total Bilirubin 0.3 mg/dL mg/dL (0.15-1.2) AST 11 U/L U/L (0-40) ALT 11 U/L U/L (0-41) Alkaline Phosphata se 98 IU/L IU/L (40-130) C-Reactive Protein 10.2 mg/L H mg/L (0.0-4.9) Total Protein 6.9 g/dL g/dL (6.6-8.7) Albumin 3.8 g/dL g/dL (3.5-5.2) Globulin 3.1 g/dL g/dL (1.3-4.6) Discharge Plan Discharge Patient Disposition: Home Clinical Impression: Pain and swelling of right elbow Condition: Stable Prescriptions: No Action Seroquel 300 mg tablet 600 mg PO BEDTIME Qty: 60 RF: 2 gabapentin 800 mg tablet 800 mg PO TID Qty: 90 RF: 2 prednisone 50 mg tablet 50 mg PO DAILY Qty: 5 RF: 0 Lasix 20 mg tablet 20 mg PO DAILY Qty: 7 RF: 0 multivitamin [Multiple Vitamins] Tablet 1 tab PO DAILY RF: 0 albuterol sulfate 2.5 mg /3 mL (0.083 %) solution for nebulization 2.5 mg INHALATION Q4H PRN (Reason: shortness of breath or wheezing) Qty: 90 RF: 0 lactulose 10 gram/15 mL solution 15 ml PO BID Qty: 237 RF: 2 albuterol sulfate 90 mcg/actuation HFA aerosol inhaler 2 inh INHALATION Q6H PRN (Reason: shortness of breath or wheezing) Qty: 8 RF: 0 ketorolac 10 mg tablet 10 mg PO TID PRN (Reason: pain) Qty: 10 RF: 0 Discharge Orders: Discharge ED (Routine); Ordered 04/12/21 Ordered By: Ankita Miguel Referrals: Jonel Seo MD [Primary Care Provider] - 04/23/21 9:00 am Activity Restrictions/Additional Instructions: As we discussed continue to ice the elbow. As we discussed please follow-up with primary care for continued evaluation of your discomfort. Coding Level of Care Code ED Clock And Watch Hands Painter for Chg Fwd Exam Detailed
[2021-04-12 10:47] VITALS: PULSE 83; RESP 14; O2SAT 96
[2021-04-12 11:55] LABS: Basophils # 0.1 10^3/uL (0.0-0.1); Basophils % 0.7 %; Eosinophils # 0.1 10^3/uL (0.0-0.8); Eosinophils % 1.4 %; Hematocrit 41.5 % (42.0-52.0); Hemoglobin 13.4 g/dL (11.7-16.6); Lymphocytes # 1.7 10^3/uL (0.8-4.8); Lymphocytes % 22.3 %; Mean Corpuscular HGB Conc 32.3 g/dL (30.0-36.0); Mean Corpuscular Hemoglobin 28.5 pg (28.0-34.0); Mean Corpuscular Volume 88.1 fl (80-94); Mean Platelet Volume 9.8 fL (7.4-10.4); Monocytes # 0.6 10^3/uL (0.2-0.9); Monocytes % 7.8 %; Neutrophils # 5.18 10^3/uL (1.8-7.7); Neutrophils % 67.5 %; Nucleated Red Blood Cells % 0 %; Platelet Count 242 10^3/cmm (130-400); Red Blood Count 4.71 10^6/uL (4.1-5.3); Red Cell Distribution Width 13.8 % (12.1-15.1); White Blood Count 7.7 10^3/uL (4.0-10.0)
[2021-04-12] MEDS: acetaminophen 500 mg Tablet 1000 MG PO (12:15)
[2021-04-12 12:32] LABS: Alanine Aminotransferase 11 U/L (0-41); Albumin Level 3.8 g/dL (3.5-5.2); Alkaline Phosphatase 98 IU/L (40-130); Anion Gap 14.8 (5-19); Aspartate Amino Transferase 11 U/L (0-40); Blood Urea Nitrogen 16 mg/dL (6-20); C Reactive Protein 10.2 mg/L (0.0-4.9); Calcium 8.7 mg/dL (8.5-10.5); Carbon Dioxide 26 mmol/L (22-29); Chloride 100 mmol/L (98-107); Globulin 3.1 g/dL (1.3-4.6); Glucose 114 mg/dL (65-115); Osmolality Calculated 286 mOsm/kg (285-295); Potassium 3.8 mmol/L (3.5-5.1); Sodium 137 mmol/L (136-145); Total Bilirubin 0.3 mg/dL (0.15-1.2); Total Protein 6.9 g/dL (6.6-8.7)
[2021-04-12 13:01] LABS: Slide Review Slide Review Perform
--- NOTE | 2021-04-12 14:24 | DCPLANNER ---
problem manager was asked to schedule a follow up appointment for patient with primary care. problem manager has worked with patient in the past, and has scheduled follow up appointments with primary care in the past and patient no showed the appointment. problem manager called [facility], spoke with Laney, gave clinic patients information. A follow up appointment was scheduled for Friday, April 23, 2021 at 9:[address] Seo. problem manager informed ED physician, and patient of the scheduled appointment. problem manager also informed patient that he has one no show on his record with Dr. Seo, and he is only allowed to have 3 and then he can no longer be seen at that clinic. Patient stated that he understood.
[2021-04-13 10:35] LABS: Erythrocyte Sedimentation Rate 6 mm/hr (0-10)
--- NOTE | 2021-05-24 08:05 | DCPLANNER ---
Patient had a follow up appointment scheduled for 04.23.[address] Seo, pcp, at [facility] - patient did not attend appointment.
== END 2021-04-12 14:30 | disposition home or self-care (01) ==
PROVIDERS: Emergency Provider Physician Assistant; PCP Family Medicine Adult Medicine
DX: M25.521 Pain in right elbow (principal); M79.89 Other specified soft tissue disorders; F17.210 Nicotine dependence, cigarettes, uncomplicated
CPT/HCPCS: 73080; 80053; 85025; 85651; 86140; 99283

== ENCOUNTER 2021-05-16 09:53 | Emergency (ER) | payer MEDICAID, SELFPAY ==
[2021-05-16 10:18] VITALS: BMI 29.8
[2021-05-16 10:32] VITALS: RESP 15
--- NOTE | 2021-05-16 10:33 | XR_ITS ---
WS: [id number] Right elbow, 3 views, 05/16/2021 Clinical Data: continued pain, possible FB Comparison: Right elbow, 04/12/2021. Findings: No fractures or dislocations are seen. The radial head is normal. There is an olecranon spur which ma y be a reaction to an injury. There is soft tissue swelling over the olecranon. There is a small wire in the lateral posterior soft tissue of the distal arm. XR/XR elbow RT min 3V* [id number] Impression: 1. Small olecranon spur with soft tissue swelling which may be a result of rece nt injury. 2. Negative for fracture or dislocation.
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
--- NOTE | 2021-05-16 15:05 | DCPLANNER ---
campus manager had message to schedule a follow up appointment for patient with ortho. campus manager called the ortho clinic, spoke with Ruth, gave clinic patients information. campus manager was told that patients information would be printed and reviewed. Clinic will call patient with appointment information.
--- NOTE | 2021-05-17 16:20 | DCPLANNER ---
Addendum entered by Amy Jacome 08/04/21 11:05: Patient had a follow up appointment scheduled with ortho - patient did not attend appointment. Original Note: Patient has a follow up appointment scheduled for Saturday, May 29, 2021 at 10:[address] Edmondson at ortho. Clinic will call patient with appointment information.
== END 2021-05-16 11:39 | disposition home or self-care (01) ==
PROVIDERS: Emergency Provider Nurse Practitioner Family
DX: M25.521 Pain in right elbow (principal); Z79.899 Other long term (current) drug therapy; F17.210 Nicotine dependence, cigarettes, uncomplicated
CPT/HCPCS: 73080; 99282

== ENCOUNTER 2021-05-31 14:25 | Emergency (ER) | payer MEDICAID, SELFPAY ==
[2021-05-31 14:45] VITALS: BP 155/108; PULSE 75; RESP 16; TEMP 36.7; O2SAT 97; BMI 29.8
--- NOTE | 2021-05-31 14:51 | W.ED.CHESTPA ---
Documented by User: Escobar Carranza DO 06/08/21 07:06 HPI - Chest Pain General: Chief Complaint: Chest Pain Stated Complaint: Chest Pains Time Seen by Provider: 05/31/21 14:47 History of Present Illness: HPI narrative: 56-year-old male presents emergency room complaining of shortness of breath chest pain nausea and vomiting. He tells me he has a history of congestive heart failure but has not ever had a heart attack bypass or stenting done. MD complaint: chest pain and chest discomfort Onset (ago): day(s) (4) Timing of current episode: episodic Prior episodes: Yes Onset: during rest Pain location: left chest Pain radiation: none Severity: mild Quality: aching, heaviness and similar to prior [place] Relieving factors: nothing Exacerbating factors: nothing Associated symptoms: Reports dyspnea; Deny abdominal pain, diaphoresis, fever(s), leg edema, nausea, palpitations, sense of impending doom, syncope or vomiting Treatment prior to arrival: none Review of Systems Const: Denies: fever(s) or diaphoresis ENMT: Denies: throat pain, ear or mastoid pain, nasal discharge or nasal congestion Card: Denies: palpitations or syncope Resp: Reports: dyspnea GI: Denies: abdominal pain, nausea or vomiting : Denies: flank pain, dysuria, urinary frequency or urinary urgency Skin/Breast: Denies: rash or pruritus PFSH ED PFSH: Medical History Asthma Cannabis dependence, uncomplicated CHF (congestive heart failure) COPD (chronic obstructive pulmonary disease) Other schizophrenia Surgical History Status post club foot correction at Family History Mother Psychiatric illness Schizophrenia Social History Smoking and tobacco status: current every day smoker cigarettes Smoking risk assessment/counseling performed?: Yes Tobacco counseling given: counseling >3 minutes Alcohol intake: never Household members: other Details: roommate x 1 Physical Exam Const: COMMON NORMALS: no acute distress GENERAL APPEARANCE: cooperative and comfortable ORIENTATION/CONSCIOUSNESS: Yes awake, Yes oriented to person, Yes oriented to place and Yes oriented to time HENMT: COMMON NORMALS: normocephalic, atraumatic and hearing grossly normal bilaterally HEAD & SCALP: normocephalic and atraumatic Neck/C-Spine: COMMON NORMALS: no JVD Resp: COMMON NORMALS: normal respiratory effort, No retractions, No use of accessory muscles and clear to auscultation bilaterally AUSCULTATION: clear to auscultation bilaterally Cardio: COMMON NORMALS: no JVD, regular rate, regular rhythm and No murmurs present (Cardio) RATE: regular rate RHYTHM: regular rhythm GI: COMMON NORMALS: Soft to palpation and No hepatosplenomegaly present AUSCULTATION: Yes normoactive bowel sounds PALPATION: Yes Soft to palpation, No Tenderness to palpation present (GI), No Guarding due to palpation present (GI) and Yes No hepatosplenomegaly present Extremity: COMMON NORMALS: normal to inspection, capillary refill normal, no clubbing, cyanosis or edema, no calf tenderness and no pedal edema Neuro: SENSORIUM/ORIENTATION: Yes oriented to person, Yes oriented to place and Yes oriented to time Skin: COMMON NORMALS: no rashes or lesions noted GENERAL SKIN EXAM: no rashes or lesions noted Course Vital Signs: Vital signs: Vital Signs Temperature 98.3 F 05/31/21 21:37 Pulse Rate 77 05/31/21 21:37 Respiratory Rate 19 H 05/31/21 21:37 Blood Pressure 129/92 05/31/21 21:37 Pulse Oximetry 95 05/31/21 21:37 MDM - Chest Pain MDM Narrative: Medical decision making narrative: Care turned over change of shift see Dr. Ordaz's notes for final diagnosis and disposition. Lab Data: Labs: Lab Results 05/31/21 05/31/21 05/31/21 16:22 16:22 16:22 WBC 9.8 10^3/uL 10^3/ uL (4.0-10.0) RBC 5.54 10^6/uL H 10 ^6/uL (4.1-5.3) Hgb 15.4 g/dL g/dL (11.7-16.6) Hct 47.7 % % (42.0-52.0) MCV 86.1 fl fl (80-94) MCH 27.8 pg L pg (28.0-34.0) MCHC 32.3 g/dL g/dL (30.0-36.0) RDW 13.4 % % (12.1-15.1) Plt Count 361 10^3/cmm 10^3 /cmm (130-400) MPV 8.3 fL fL (7.4-10.4) Neut % (Auto) 76.5 % % Lymph % (Auto) 16.0 % % [place] % (Auto) 5.9 % % Eos % (Auto) 0.7 % % Baso % (Auto) 0.5 % % Neut # (Auto) 7.53 10^3/uL 10^3 /uL (1.8-7.7) Lymph # (Auto) 1.6 10^3/uL 10^3/ uL (0.8-4.8) [place] # (Auto) 0.6 10^3/uL 10^3/ uL (0.2-0.9) Eos # (Auto) 0.1 10^3/uL 10^3/ uL (0.0-0.8) Baso # (Auto) 0.1 10^3/uL 10^3/ uL (0.0-0.1) Nucleated RBC % (a uto) 0 % % Nucleated RBCs # 0.0 /100WBC /100W BC Sodium 135 mmol/L L mmol /L (136-145) Potassium 4.2 mmol/L mmol/L (3.5-5.1) Chloride 97 mmol/L L mmol/ L (98-107) Carbon Dioxide 25 mmol/L mmol/L (22-29) Anion Gap 17.2 (5-19) BUN 14 mg/dL mg/dL (6-20) Creatinine 0.8 mg/dL mg/dL (0.7-1.2) GFR Calculation 100.0 mL/min mL/m in (90-130) Glucose 118 mg/dL H mg/dL (65-115) Calculated Osmolal ity 282 mOsm/kg L mOs m/kg (285-295) Calcium 8.8 mg/dL mg/dL (8.5-10.5) Total Bilirubin 0.4 mg/dL mg/dL (0.15-1.2) AST 11 U/L U/L (0-40) ALT 13 U/L U/L (0-41) Alkaline Phosphata se 113 IU/L IU/L (40-130) Troponin T Baselin e 20 ng/L H ng/L (0-15) Troponin T 120 Min three affiliated Delta Troponin T Total Protein 7.5 g/dL g/dL (6.6-8.7) Albumin 4.2 g/dL g/dL (3.5-5.2) Globulin 3.3 g/dL g/dL (1.3-4.6) Urine Color Urine Appearance Urine pH Ur Specific Gravit y Urine Protein Urine Glucose (UA) Urine Ketones Urine Blood Urine Nitrate Urine Bilirubin Urine Urobilinogen Ur Leukocyte Joaquina ase Urine Opiates Scre en Ur Barbiturates Sc reen Ur Phencyclidine S crn Ur Amphetamines Sc reen U Benzodiazepines Scrn Urine Cocaine Scre en U Marijuana (THC) Screen 05/31/21 05/31/21 05/31/21 18:20 19:10 19:10 WBC RBC Hgb Hct MCV MCH MCHC RDW Plt Count MPV Neut % (Auto) Lymph % (Auto) [place] % (Auto) Eos % (Auto) Baso % (Auto) Neut # (Auto) Lymph # (Auto) [place] # (Auto) Eos # (Auto) Baso # (Auto) Nucleated RBC % (a uto) Nucleated RBCs # Sodium Potassium Chloride Carbon Dioxide Anion Gap BUN Creatinine GFR Calculation Glucose Calculated Osmolal ity Calcium Total Bilirubin AST ALT Alkaline Phosphata se Troponin T Baselin e Troponin T 120 Min three affiliated 17.77 ng/L H ng/L (0-15) Delta Troponin T -2.23 ABS# L ABS# (0-10) Total Protein Albumin Globulin Urine Color Yellow (Yellow) Urine Appearance Clear (CLEAR) Urine pH 5 (5-7) Ur Specific Gravit y 1.020 (1.005-1.030) Urine Protein Neg (Negative) Urine Glucose (UA) Norm (Normal) Urine Ketones Negative (Negative) Urine Blood Neg (Negative) Urine Nitrate Negative (Negative) Urine Bilirubin Neg (Negative) Urine Urobilinogen Neg mg/dL mg/dL (Negative) Ur Leukocyte Joaquina ase Negative (Negative) Urine Opiates Scre en Negative ng/mL ng /mL (Negative) Ur Barbiturates Sc reen Negative ng/mL ng /mL (Negative) Ur Phencyclidine S crn Negative ng/mL ng /mL (Negative) Ur Amphetamines Sc reen Positive ng/mL H ng/mL (Negative) U Benzodiazepines Scrn Negative ng/mL ng /mL (Negative) Urine Cocaine Scre en Negative ng/mL ng /mL (Negative) U Marijuana (THC) Screen Positive ng/mL H ng/mL (Negative) Discharge Plan Discharge Patient Disposition: Home Clinical Impression: Chest pain Condition: Stable Prescriptions: No Action gabapentin 800 mg tablet 800 mg PO TID Qty: 90 RF: 0 Seroquel 300 mg tablet 600 mg PO BEDTIME Qty: 60 RF: 0 prednisone 10 mg Tablet 20 mg PO BID RF: 0 quetiapine 300 mg Tablet 600 mg PO BEDTIME 30 Days Qty: 60 RF: 1 gabapentin 400 mg Capsule 800 mg PO TID 30 Days Qty: 180 RF: 0 ibuprofen 600 mg Tablet 600 mg PO Q6H PRN (Reason: Moderate Pain) Qty: 0 RF: 0 hydroxyzine pamoate 25 mg Capsule 50 mg PO DAILY PRN (Reason: Anxiety) 30 Days Qty: 30 RF: 1 multivitamin [Multiple Vitamins] Tablet 1 tab PO DAILY RF: 0 albuterol sulfate 2.5 mg /3 mL (0.083 %) solution for nebulization 2.5 mg INHALATION Q4H PRN (Reason: shortness of breath or wheezing) Qty: 90 RF: 0 albuterol sulfate 90 mcg/actuation HFA aerosol inhaler 2 inh INHALATION Q6H PRN (Reason: shortness of breath or wheezing) Qty: 8 RF: 0 Discharge Orders: Discharge ED (Routine); Ordered 05/31/21 Ordered By: Venkata Ordaz Discharge Diet: Advance as tolerated Discharge Activity: Resume usual activity Patient Instructions: Chest Pain (ED) Activity Restrictions/Additional Instructions: Come back to the emergency room if your chest pain worsens, have any fever or chills, worsening shortness of breath, worsening exertional lightheadedness, or any new or concerning complaints. Coding Level of Care Code ED Maintenance Supervisor for Panchito Fwd Exam Comprehensive Documented by User: Venkata Ordaz MD 05/31/21 19:26 HPI - Chest Pain General: Chief Complaint: Chest Pain Stated Complaint: Chest Pains Time Seen by Provider: 05/31/21 14:47 [facility] ED PFSH: Medical History Asthma Cannabis dependence, uncomplicated CHF (congestive heart failure) COPD (chronic obstructive pulmonary disease) Other schizophrenia Surgical History Status post club foot correction at Family History Mother Psychiatric illness Schizophrenia Social History Smoking and tobacco status: current every day smoker cigarettes Smoking risk assessment/counseling performed?: Yes Tobacco counseling given: counseling >3 minutes Alcohol intake: never Household members: other Details: roommate x 1 Course Vital Signs: Vital signs: Vital Signs Temperature 98.3 F 05/31/21 21:37 Pulse Rate 77 05/31/21 21:37 Respiratory Rate 19 H 05/31/21 21:37 Blood Pressure 129/92 05/31/21 21:37 Pulse Oximetry 95 05/31/21 21:37 MDM - Chest Pain MDM Narrative: Medical decision making narrative: 56-year-old male presented to emergency room with complaints of chest pain shortness of breath. Troponin x2 within normal limit. EKG showing regular sinus rhythm at HT of [77]. Normal axis. No ST elevations/depressions to suggest coronary occlusion. Normal MS, QRS, QT intervals. Doubt ACS/PE or other emergent causes of chest pain. Troponin x 2 changed. Delta < 5. No suspicion for aortic dissection given no widened mediastinum, 2+ upper extremity pulses, or tearing pain. No suspicion for PE given no pleuritic chest pain, recent immobilization or surgery hemoptysis, or other VTE risk factors. EKG is non-ischemic. XR normal. Disposition: Discharge. Patient counseled regarding diagnostic impression, treatment plan. Patient given ED strict return precautions to return for continuation, worsening, or development of new symptoms. Instructed to f/u w/ PCP regarding symptoms today. Patient verbalized understanding. Lab Data: Labs: Lab Results 05/31/21 05/31/21 05/31/21 16:22 16:22 16:22 WBC 9.8 10^3/uL 10^3/ uL (4.0-10.0) RBC 5.54 10^6/uL H 10 ^6/uL (4.1-5.3) Hgb 15.4 g/dL g/dL (11.7-16.6) Hct 47.7 % % (42.0-52.0) MCV 86.1 fl fl (80-94) MCH 27.8 pg L pg (28.0-34.0) MCHC 32.3 g/dL g/dL (30.0-36.0) RDW 13.4 % % (12.1-15.1) Plt Count 361 10^3/cmm 10^3 /cmm (130-400) MPV 8.3 fL fL (7.4-10.4) Neut % (Auto) 76.5 % % Lymph % (Auto) 16.0 % % [place] % (Auto) 5.9 % % Eos % (Auto) 0.7 % % Baso % (Auto) 0.5 % % Neut # (Auto) 7.53 10^3/uL 10^3 /uL (1.8-7.7) Lymph # (Auto) 1.6 10^3/uL 10^3/ uL (0.8-4.8) [place] # (Auto) 0.6 10^3/uL 10^3/ uL (0.2-0.9) Eos # (Auto) 0.1 10^3/uL 10^3/ uL (0.0-0.8) Baso # (Auto) 0.1 10^3/uL 10^3/ uL (0.0-0.1) Nucleated RBC % (a uto) 0 % % Nucleated RBCs # 0.0 /100WBC /100W BC Sodium 135 mmol/L L mmol /L (136-145) Potassium 4.2 mmol/L mmol/L (3.5-5.1) Chloride 97 mmol/L L mmol/ L (98-107) Carbon Dioxide 25 mmol/L mmol/L (22-29) Anion Gap 17.2 (5-19) BUN 14 mg/dL mg/dL (6-20) Creatinine 0.8 mg/dL mg/dL (0.7-1.2) GFR Calculation 100.0 mL/min mL/m in (90-130) Glucose 118 mg/dL H mg/dL (65-115) Calculated Osmolal ity 282 mOsm/kg L mOs m/kg (285-295) Calcium 8.8 mg/dL mg/dL (8.5-10.5) Total Bilirubin 0.4 mg/dL mg/dL (0.15-1.2) AST 11 U/L U/L (0-40) ALT 13 U/L U/L (0-41) Alkaline Phosphata se 113 IU/L IU/L (40-130) Troponin T Baselin e 20 ng/L H ng/L (0-15) Troponin T 120 Min three affiliated Delta Troponin T Total Protein 7.5 g/dL g/dL (6.6-8.7) Albumin 4.2 g/dL g/dL (3.5-5.2) Globulin 3.3 g/dL g/dL (1.3-4.6) Urine Color Urine Appearance Urine pH Ur Specific Gravit y Urine Protein Urine Glucose (UA) Urine Ketones Urine Blood Urine Nitrate Urine Bilirubin Urine Urobilinogen Ur Leukocyte Joaquina ase Urine Opiates Scre en Ur Barbiturates Sc reen Ur Phencyclidine S crn Ur Amphetamines Sc reen U Benzodiazepines Scrn Urine Cocaine Scre en U Marijuana (THC) Screen 05/31/21 05/31/21 05/31/21 18:20 19:10 19:10 WBC RBC Hgb Hct MCV MCH MCHC RDW Plt Count MPV Neut % (Auto) Lymph % (Auto) [place] % (Auto) Eos % (Auto) Baso % (Auto) Neut # (Auto) Lymph # (Auto) [place] # (Auto) Eos # (Auto) Baso # (Auto) Nucleated RBC % (a uto) Nucleated RBCs # Sodium Potassium Chloride Carbon Dioxide Anion Gap BUN Creatinine GFR Calculation Glucose Calculated Osmolal ity Calcium Total Bilirubin AST ALT Alkaline Phosphata se Troponin T Baselin e Troponin T 120 Min three affiliated 17.77 ng/L H ng/L (0-15) Delta Troponin T -2.23 ABS# L ABS# (0-10) Total Protein Albumin Globulin Urine Color Yellow (Yellow) Urine Appearance Clear (CLEAR) Urine pH 5 (5-7) Ur Specific Gravit y 1.020 (1.005-1.030) Urine Protein Neg (Negative) Urine Glucose (UA) Norm (Normal) Urine Ketones Negative (Negative) Urine Blood Neg (Negative) Urine Nitrate Negative (Negative) Urine Bilirubin Neg (Negative) Urine Urobilinogen Neg mg/dL mg/dL (Negative) Ur Leukocyte Joaquina ase Negative (Negative) Urine Opiates Scre en Negative ng/mL ng /mL (Negative) Ur Barbiturates Sc reen Negative ng/mL ng /mL (Negative) Ur Phencyclidine S crn Negative ng/mL ng /mL (Negative) Ur Amphetamines Sc reen Positive ng/mL H ng/mL (Negative) U Benzodiazepines Scrn Negative ng/mL ng /mL (Negative) Urine Cocaine Scre en Negative ng/mL ng /mL (Negative) U Marijuana (THC) Screen Positive ng/mL H ng/mL (Negative) Imaging Data^: Other Imaging: Radiologist's impression: [address] [id number] ReportSigned Patient: David Cortes #: [id number]: 1965Acct#:[id number]/Sex: 56 / MADM Date: 05/31/21Loc: ERRoom/Bed:Attending Dr: Ordering Provider/Ordering MD: Escobar Carranza DO Date of Service: 05/31/21 Procedure(s): XR chest 1V portable [id number] Accession Number(s): [id number] Report Number: [id number] WS: [id number] Exam: XR chest 1V portable [id number] Date/Time of Exam: 05/31/2021 3:34 PM Reason For Exam: dyspnea/cough Comparison 03/18/2021. The lungs are clear and fully expanded. Heart is enlarged but unchanged in size. No pleural effusions. The mediastinum and osseous thorax are unremarkable. Anchoring screws noted in the right humeral head. XR/XR chest 1V portable [id number] IMPRESSION: 1. Cardiac enlargement unchanged. No acute cardiopulmonary finding. Dictated By:Da Silvaigned By:Jack Selby Date/Time:05/31/21 1555DD/ 1554 Discharge Plan Discharge Patient Disposition: Home Clinical Impression: Chest pain Condition: Stable Prescriptions: No Action gabapentin 800 mg tablet 800 mg PO TID Qty: 90 RF: 0 Seroquel 300 mg tablet 600 mg PO BEDTIME Qty: 60 RF: 0 prednisone 10 mg Tablet 20 mg PO BID RF: 0 quetiapine 300 mg Tablet 600 mg PO BEDTIME 30 Days Qty: 60 RF: 1 gabapentin 400 mg Capsule 800 mg PO TID 30 Days Qty: 180 RF: 0 ibuprofen 600 mg Tablet 600 mg PO Q6H PRN (Reason: Moderate Pain) Qty: 0 RF: 0 hydroxyzine pamoate 25 mg Capsule 50 mg PO DAILY PRN (Reason: Anxiety) 30 Days Qty: 30 RF: 1 multivitamin [Multiple Vitamins] Tablet 1 tab PO DAILY RF: 0 albuterol sulfate 2.5 mg /3 mL (0.083 %) solution for nebulization 2.5 mg INHALATION Q4H PRN (Reason: shortness of breath or wheezing) Qty: 90 RF: 0 albuterol sulfate 90 mcg/actuation HFA aerosol inhaler 2 inh INHALATION Q6H PRN (Reason: shortness of breath or wheezing) Qty: 8 RF: 0 Discharge Orders: Discharge ED (Routine); Ordered 05/31/21 Ordered By: Venkata Ordaz Discharge Diet: Advance as tolerated Discharge Activity: Resume usual activity Patient Instructions: Chest Pain (ED) Activity Restrictions/Additional Instructions: Come back to the emergency room if your chest pain worsens, have any fever or chills, worsening shortness of breath, worsening exertional lightheadedness, or any new or concerning complaints. Coding Level of Care Code ED Maintenance Supervisor for Panchito Fwd Exam Comprehensive
--- NOTE | 2021-05-31 15:20 | ECG_ITS ---
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 Measurements Intervals [place] Rate: 72 P: 62 PA: 169 QRS: 46 QRSD: 100 T: 54 QT: 412 QTc: 454 Interpretive Statements SINUS RHYTHM POSSIBLE LEFT ATRIAL ENLARGEMENT [-0.1mV P-WAVE IN V1/V2] Compared to ECG 05/31/2021 14:41:57 Ectopic atrial rhythm no longer present Myocardial infarct finding no longer present Electronically Signed On 06-01-2021 16:11:34 CHILD WELFARE CASEWORKER by Joycelyn Yang M.D. [id number] f
--- NOTE | 2021-05-31 15:31 | XR_ITS ---
WS: [id number] Exam: XR chest 1V portable [id number] Date/Time of Exam: 05/31/2021 3:34 PM Reason For Exam: dyspnea/cough Comparison 03/18/2021. The lungs are clear and fully expanded. Heart is enlarged but unchanged in size. No pleural effusions . The mediastinum and osseous thorax are unremarkable. Anchoring screws noted in the right humeral he ad. XR/XR chest 1V portable [id number] IMPRESSION: 1. Cardiac enlargement unchanged. No acute cardiopulmonary finding.
[2021-05-31 15:35] VITALS: BP 136/95; PULSE 76; RESP 15; O2SAT 95
[2021-05-31 15:53] VITALS: PULSE 78
[2021-05-31] MEDS: aspirin 81 mg Chew Tablet 324 MG PO (15:55)
[2021-05-31] MEDS: nitroglycerin 1 gm/inch oint Pkt 1 INCH TOPICAL (15:55)
[2021-05-31 16:29] LABS: Basophils # 0.1 10^3/uL (0.0-0.1); Basophils % 0.5 %; Eosinophils # 0.1 10^3/uL (0.0-0.8); Eosinophils % 0.7 %; Hematocrit 47.7 % (42.0-52.0); Hemoglobin 15.4 g/dL (11.7-16.6); Lymphocytes # 1.6 10^3/uL (0.8-4.8); Mean Corpuscular HGB Conc 32.3 g/dL (30.0-36.0); Mean Corpuscular Hemoglobin 27.8 pg (28.0-34.0); Mean Corpuscular Volume 86.1 fl (80-94); Mean Platelet Volume 8.3 fL (7.4-10.4); Monocytes # 0.6 10^3/uL (0.2-0.9); Monocytes % 5.9 %; Neutrophils # 7.53 10^3/uL (1.8-7.7); Neutrophils % 76.5 %; Nucleated Red Blood Cells % 0 %; Platelet Count 361 10^3/cmm (130-400); Red Blood Count 5.54 10^6/uL (4.1-5.3); Red Cell Distribution Width 13.4 % (12.1-15.1); White Blood Count 9.8 10^3/uL (4.0-10.0)
--- NOTE | 2021-05-31 17:20 | ECG_ITS ---
[facility] Test Date: 2021-05-31 Pat Name: David Cortes Department: Room: Gender: Male Oxygen Tank Filler: : 1965 Requested By: Escobar García Order Number: [id number] Mahesh MD: Joycelyn Yang M.D. Measurements Intervals [place] Rate: 77 P: 61 AL: 171 QRS: 55 QRSD: 101 T: 53 QT: 397 QTc: 451 Interpretive Statements SINUS RHYTHM POSSIBLE LEFT ATRIAL ENLARGEMENT [-0.1mV P-WAVE IN V1/V2] Compared to ECG 05/31/2021 15:45:40 No significant changes Electronically Signed On 06-01-2021 16:16:30 CONFERENCE SERVICES MANAGER by Joycelyn Yang M.D. [id number]
[2021-05-31 17:22] LABS: Troponin(5th) Baseline 20 ng/L (0-15)
--- NOTE | 2021-05-31 17:24 | PC.NURSE ---
Pt states his head is hurting, Dr. Carranza advised, new verbal orders given and entered
[2021-05-31 17:28] LABS: Alanine Aminotransferase 13 U/L (0-41); Albumin Level 4.2 g/dL (3.5-5.2); Alkaline Phosphatase 113 IU/L (40-130); Anion Gap 17.2 (5-19); Aspartate Amino Transferase 11 U/L (0-40); Blood Urea Nitrogen 14 mg/dL (6-20); Calcium 8.8 mg/dL (8.5-10.5); Carbon Dioxide 25 mmol/L (22-29); Chloride 97 mmol/L (98-107); Globulin 3.3 g/dL (1.3-4.6); Glucose 118 mg/dL (65-115); Osmolality Calculated 282 mOsm/kg (285-295); Potassium 4.2 mmol/L (3.5-5.1); Sodium 135 mmol/L (136-145); Total Bilirubin 0.4 mg/dL (0.15-1.2); Total Protein 7.5 g/dL (6.6-8.7)
[2021-05-31] MEDS: acetaminophen 500 mg Tablet 1000 MG PO (17:29)
[2021-05-31 18:34] VITALS: BP 129/92; PULSE 77; RESP 19; O2SAT 95
--- NOTE | 2021-05-31 18:37 | PC.NURSE ---
This RN repeatedly requesting pt keep his leads on for the monitor, pt keeps taking off his BP cuff as well as the cardiac leads.
[2021-05-31 19:14] LABS: Troponin 5 2HR 17.77 ng/L (0-15)
[2021-05-31 19:15] LABS: Troponin 5 2HR Delta -2.23 ABS# (0-10)
[2021-05-31 20:08] LABS: Add Urine Microscopic? NO; Charge for UA Resulting for Rev
[2021-05-31 20:41] LABS: Bilirubin Urine Neg (Negative); Blood Urine Neg (Negative); Glucose Urine UA Norm (Normal); Ketones Urine Negative (Negative); Leukocyte Esterase Urine Negative (Negative); Nitrate Urine Negative (Negative); Protein Urine Neg (Negative); Urine Appearance Clear (CLEAR); Urine Color Yellow (Yellow); Urobilinogen Urine Neg (Negative); pH Urine 5 (5-7)
[2021-05-31 21:05] LABS: THC Screen Urine Positive (Negative)
[2021-05-31 21:06] LABS: Amphetamines Screen Urine Positive (Negative); Barbiturates Screen Urine Negative (Negative); Benzodiazepines Screen Urine Negative (Negative); Cocaine Screen Urine Negative (Negative); Opiate Screen Urine Negative (Negative); PCP Screen Urine Negative (Negative)
--- NOTE | 2021-05-31 21:20 | ECG_ITS ---
[facility] Test Date: 2021-05-31 Pat Name: David Cortes Department: Room: Gender: Male Vulcanizing Press Operator: : 1965 Requested By: Escobar García Order Number: [id number] Mahesh MD: Joycelyn Yang M.D. Measurements Intervals [place] Rate: 70 P: 144 SC: 163 QRS: 77 QRSD: 102 T: 79 QT: 395 QTc: 428 Interpretive Statements ECTOPIC ATRIAL RHYTHM POSSIBLE LEFT ATRIAL ENLARGEMENT [-0.1mV P-WAVE IN V1/V2] LATERAL MYOCARDIAL INFARCTION , PROBABLY RECENT [40+ ms Q WAVE AND/OR ST/T ABNORMALITY IN I/aVL/V5/V6] Compared to ECG 03/18/2021 19:39:58 Ectopic atrial rhythm now present Myocardial infarct finding now present Sinus rhythm no longer present Electronically Signed On 06-01-2021 16:17:29 INTRANET SUPPORT by Joycelyn Yang M.D. [id number]
[2021-05-31 21:37] VITALS: BP 129/92; PULSE 77; RESP 19; TEMP 36.8; O2SAT 95
== END 2021-05-31 21:30 | disposition home or self-care (01) ==
PROVIDERS: Family Medicine; Emergency Provider Emergency Medicine
DX: R07.9 Chest pain, unspecified (principal); F17.210 Nicotine dependence, cigarettes, uncomplicated; Z79.52 Long term (current) use of systemic steroids
CPT/HCPCS: 36415; 71045; 80053; 80306; 81003; 84484; 85025; 93005; 99284

== ENCOUNTER 2021-06-01 17:45 | Inpatient (IN) | payer MEDICAID, SELFPAY ==
[2021-06-01 18:29] VITALS: BP 163/98; PULSE 79; RESP 16; TEMP 36.7; O2SAT 97
--- NOTE | 2021-06-01 18:48 | XRR_ITS ---
PROCEDURE INFORMATION: Exam: XR Chest Exam date and time: 06/01/2021 6:48 PM Age: 56 years old Clinical indication: Chest wall pain; Additional info: Cp TECHNIQUE: Imaging protocol: XR of the chest. Views: 1 view. COMPARISON: CR XR chest 1V portable [id number] 05/31/2021 3:49 PM FINDINGS: Lungs: Unremarkable. No consolidation. Pleural spaces: Unremarkable. No pleural effusion. No pneumothorax. Heart/Mediastinum: Unchanged cardiomegaly. Bones/joints: No acute abnormality. XR/XR chest 1V portable [id number] IMPRESSION: No acute findings. Unchanged exam. Radiation Dose CTDIVOL = (mGy): DLP = (mGy-cm)
--- NOTE | 2021-06-01 18:48 | ECG_ITS ---
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 Measurements Intervals [place] Rate: 81 P: 52 SC: 168 QRS: 39 QRSD: 94 T: 52 QT: 377 QTc: 439 Interpretive Statements SINUS RHYTHM WITH OCCASIONAL VENTRICULAR PREMATURE COMPLEXES Compared to ECG 05/31/2021 17:22:15 Ventricular premature complex(es) now present Electronically Signed On 06-02-2021 21:58:56 ZANJERO by Penny Mac M.D. [id number]
--- NOTE | 2021-06-01 20:10 | W.ED.ABDPA2 ---
HPI - Abdominal Pain General: Chief Complaint: Abdominal Pain Stated Complaint: STOMACH PAINS/PAIN IN ARM CONTINUED.HERE YESTERDAY Time Seen by Provider: 06/01/21 19:48 History of Present Illness: HPI narrative: Patient is a 56-year-old male with a past medical history of asthma COPD bipolar disorder. He is here with complaints of abdominal pain. States been going on since the third of this month. He was in the time with a foreign body difficult and discharged on Keflex. States is been causing abdominal pain but he is no longer taking it anymore. Was seen last night for chest pain worked up and discharged. Does not have it not have any vomiting but does have some nausea no diarrhea constipation No fevers chills chest pains altered mental status or syncope Review of Systems General: Reports: 10 or more systems reviewed and unremarkable except in HPI and below PFSH ED PFSH: Medical History Asthma Cannabis dependence, uncomplicated CHF (congestive heart failure) COPD (chronic obstructive pulmonary disease) Other schizophrenia Surgical History Status post club foot correction at Family History Mother Psychiatric illness Schizophrenia Social History Smoking and tobacco status: current every day smoker cigarettes Smoking risk assessment/counseling performed?: Yes Tobacco counseling given: counseling >3 minutes Alcohol intake: never Household members: other Details: roommate x 1 Physical Exam Const: COMMON NORMALS: no acute distress, average body habitus, patient oriented x3, no limitations, healthy appearing, alert and well nourished HENMT: COMMON NORMALS: normocephalic, atraumatic and hearing grossly normal bilaterally HEAD & SCALP: normocephalic and atraumatic Eye: COMMON NORMALS: Equal, round and reactive pupils present and EOMs intact bilaterally PUPIL: Yes Equal, round and reactive pupils present Resp: COMMON NORMALS: normal respiratory effort, No retractions, No use of accessory muscles and clear to auscultation bilaterally AUSCULTATION: clear to auscultation bilaterally Cardio: COMMON NORMALS: regular rate, regular rhythm, S1 normal heart sound present, S2 normal heart sound present and Peripheral pulses 2+ throughout RATE: regular rate RHYTHM: regular rhythm HEART SOUNDS: S1 normal heart sound present and S2 normal heart sound present PERIPHERAL PULSES: Peripheral pulses 2+ throughout Extremity: COMMON NORMALS: normal to inspection, full ROM, capillary refill normal, no joint enlargement, no clubbing, cyanosis or edema, no calf tenderness and no pedal edema Neuro: COMMON NORMALS: patient oriented x3, CN's II-XII intact bilaterally, moves all extremities, no focal motor deficits, no sensory deficits noted and gait normal SENSORIUM/ORIENTATION: Yes alert Psych: COMMON NORMALS: mental status grossly normal, Normal thought process present, cooperative, normal affect, speech normal, activity/motor behavior normal, denies hallucinations, denies homicidal ideation and denies suicidal ideation SPEECH: Yes normal speech THOUGHT PROCESS: Normal thought process present Skin: COMMON NORMALS: no rashes or lesions noted and no wounds GENERAL SKIN EXAM: no rashes or lesions noted Course ED course: Patient's laboratory work-up was unremarkable. He says stomach is feeling better however towards the end of the visit stated that he was actively suicidal with a plan to take pills He does have a history of suicide attempts in the past and has not been taking his medicine. Discussed case with psychiatrist to agrees for admission Vital Signs: Vital signs: Vital Signs Temperature 98.1 F 06/01/21 18:29 Pulse Rate 79 06/01/21 18:29 Respiratory Rate 16 06/01/21 18:29 Blood Pressure 163/98 06/01/21 18:29 Pulse Oximetry 97 06/01/21 18:29 MDM - Abdominal Pain MDM Narrative: Medical decision making narrative: Patient has a unremarkable abdominal exam. Vital signs are normal pain seems to be epigastric may be related to his Keflex told him he definitely can stop taking that since his visit was over 2 weeks ago. We will give him a GI cocktail to see if that helps his stomach as well as some Zofran. Get basic labs on him an EKG to rule out any more ominous signs. Lab Data: Labs: Lab Results 06/01/21 06/01/21 20:13 20:13 WBC 10.4 10^3/uL H 10 ^3/uL (4.0-10.0) RBC 5.27 10^6/uL 10^6 /uL (4.1-5.3) Hgb 14.9 g/dL g/dL (11.7-16.6) Hct 46.2 % % (42.0-52.0) MCV 87.7 fl fl (80-94) MCH 28.3 pg pg (28.0-34.0) MCHC 32.3 g/dL g/dL (30.0-36.0) RDW 13.6 % % (12.1-15.1) Plt Count 352 10^3/cmm 10^3 /cmm (130-400) MPV 8.3 fL fL (7.4-10.4) Neut % (Auto) 71.5 % % Lymph % (Auto) 20.3 % % Cameron % (Auto) 6.8 % % Eos % (Auto) 0.4 % % Baso % (Auto) 0.6 % % Neut # (Auto) 7.44 10^3/uL 10^3 /uL (1.8-7.7) Lymph # (Auto) 2.1 10^3/uL 10^3/ uL (0.8-4.8) Cameron # (Auto) 0.7 10^3/uL 10^3/ uL (0.2-0.9) Eos # (Auto) 0.0 10^3/uL 10^3/ uL (0.0-0.8) Baso # (Auto) 0.1 10^3/uL 10^3/ uL (0.0-0.1) Nucleated RBC % (a uto) 0 % % Nucleated RBCs # 0.0 /100WBC /100W BC Sodium 134 mmol/L L mmol /L (136-145) Potassium 4.3 mmol/L mmol/L (3.5-5.1) Chloride 97 mmol/L L mmol/ L (98-107) Carbon Dioxide 26 mmol/L mmol/L (22-29) Anion Gap 15.3 (5-19) BUN 18 mg/dL mg/dL (6-20) Creatinine 0.8 mg/dL mg/dL (0.7-1.2) GFR Calculation 100.0 mL/min mL/m in (90-130) Glucose 112 mg/dL mg/dL (65-115) Calculated Osmolal ity 281 mOsm/kg L mOs m/kg (285-295) Calcium 9.6 mg/dL mg/dL (8.5-10.5) Total Bilirubin 0.3 mg/dL mg/dL (0.15-1.2) AST 10 U/L U/L (0-40) ALT 14 U/L U/L (0-41) Alkaline Phosphata se 104 IU/L IU/L (40-130) Total Protein 7.4 g/dL g/dL (6.6-8.7) Albumin 4.0 g/dL g/dL (3.5-5.2) Globulin 3.4 g/dL g/dL (1.3-4.6) Lipase 18 U/L U/L (13-60) TSH 1.09 uIU/mL uIU/m L (0.27-4.20) Salicylates < 0.3 mg/dL L mg/ dL (3-10) Acetaminophen < 5.0 ug/mL L ug/ mL (10-30) Ethyl Alcohol < 10 mg/dL mg/dL (0-10) Discharge Plan Discharge Patient Disposition: Admitted As Inpatient Clinical Impression: Other schizophrenia, Suicidal ideation Condition: Stable Prescriptions: No Action gabapentin 800 mg tablet 800 mg PO TID Qty: 90 RF: 0 Seroquel 300 mg tablet 600 mg PO BEDTIME Qty: 60 RF: 0 furosemide [Lasix] 20 mg tablet 20 mg PO DAILY Qty: 7 RF: 0 prednisone 10 mg Tablet See Rx Instructions .ROUTE .COMPLEX RF: 0 Keflex 500 mg Capsule 500 mg PO TID RF: 0 acetaminophen 500 mg tablet 500 mg PO Q6H PRN (Reason: pain) 5 Days Qty: 20 RF: 0 multivitamin [Multiple Vitamins] Tablet 1 tab PO DAILY RF: 0 albuterol sulfate 2.5 mg /3 mL (0.083 %) solution for nebulization 2.5 mg INHALATION Q4H PRN (Reason: shortness of breath or wheezing) Qty: 90 RF: 0 albuterol sulfate 90 mcg/actuation HFA aerosol inhaler 2 inh INHALATION Q6H PRN (Reason: shortness of breath or wheezing) Qty: 8 RF: 0 Coding Level of Care Code ED Stave Inspector for g Fwd Exam Comprehensive
[2021-06-01 20:28] LABS: Basophils # 0.1 10^3/uL (0.0-0.1); Basophils % 0.6 %; Eosinophils % 0.4 %; Hematocrit 46.2 % (42.0-52.0); Hemoglobin 14.9 g/dL (11.7-16.6); Lymphocytes # 2.1 10^3/uL (0.8-4.8); Lymphocytes % 20.3 %; Mean Corpuscular HGB Conc 32.3 g/dL (30.0-36.0); Mean Corpuscular Hemoglobin 28.3 pg (28.0-34.0); Mean Corpuscular Volume 87.7 fl (80-94); Mean Platelet Volume 8.3 fL (7.4-10.4); Monocytes # 0.7 10^3/uL (0.2-0.9); Monocytes % 6.8 %; Neutrophils # 7.44 10^3/uL (1.8-7.7); Neutrophils % 71.5 %; Nucleated Red Blood Cells % 0 %; Platelet Count 352 10^3/cmm (130-400); Red Blood Count 5.27 10^6/uL (4.1-5.3); Red Cell Distribution Width 13.6 % (12.1-15.1); White Blood Count 10.4 10^3/uL (4.0-10.0)
[2021-06-01 21:05] LABS: Acetaminophen < 5.0 ug/mL (10-30); Alanine Aminotransferase 14 U/L (0-41); Alcohol Level < 10 mg/dL (0-10); Alkaline Phosphatase 104 IU/L (40-130); Anion Gap 15.3 (5-19); Aspartate Amino Transferase 10 U/L (0-40); Blood Urea Nitrogen 18 mg/dL (6-20); Calcium 9.6 mg/dL (8.5-10.5); Carbon Dioxide 26 mmol/L (22-29); Chloride 97 mmol/L (98-107); Globulin 3.4 g/dL (1.3-4.6); Glucose 112 mg/dL (65-115); Lipase 18 U/L (13-60); Osmolality Calculated 281 mOsm/kg (285-295); Potassium 4.3 mmol/L (3.5-5.1); Salicylate < 0.3 mg/dL (3-10); Sodium 134 mmol/L (136-145); Thyroid Stimulating Hormone 1.09 uIU/mL (0.27-4.20); Total Bilirubin 0.3 mg/dL (0.15-1.2); Total Protein 7.4 g/dL (6.6-8.7)
[2021-06-01] MEDS: ondansetron 4 MG Tablet PO (21:33)
[2021-06-02 04:09] VITALS: BP 131/87; PULSE 85; RESP 18; TEMP 36.8; O2SAT 94
[2021-06-02 06:00] VITALS: RESP 17
[2021-06-02] MEDS: multivitamin therapeutic Tablet 1 TAB PO (08:45)
[2021-06-02] MEDS: predniSONE 20 mg Tablet PO ×2 (08:46→17:08)
[2021-06-02] MEDS: gabapentin 400 mg Capsule 800 MG PO ×3 (08:46→21:01)
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
[2021-06-02] MEDS: nicotine 21 mg Patch 1 PATCH TRANSDERMA (12:56)
[2021-06-02 14:00] VITALS: BP 149/89; PULSE 18; RESP 18; TEMP 36.9; O2SAT 96
[2021-06-02] MEDS: FUROsemide 20 mg Tablet PO (15:06)
[2021-06-02 20:34] VITALS: BP 137/87; PULSE 77; RESP 18; TEMP 36.6; O2SAT 95
[2021-06-02] MEDS: quetiapine 300 mg Tablet 600 MG PO (21:01)
[2021-06-03 06:00] VITALS: BP 131/88; PULSE 80; RESP 16; TEMP 36.6; O2SAT 97; BMI 29.8
--- NOTE | 2021-06-03 08:10 | P.NPUPN_ITS ---
Subjective NPU Subjective: Interval history: He says that he is feeling great today. He slept very well last night. He had a good breakfast. He denies any suicidal ideation since he has been admitted. He has not had auditory hallucinations. He continues to have pain in his arm and says he has an appointment for that next month. If he continues to do well he would like to go home tomorrow. Mental Status Exam MSE Comments: He was found back in bed after breakfast. He was pleasant and cooperative with the evaluation. He appears his stated age and has several days of bradshaw growth. He is in hospital scrubs. psychomotor activity is mildly decreased. Speech is at a regular rate and rhythm, normal volume, good articulation, not pressured. Alert, oriented X3. Attention and concentration appear to be good.. Memory is intact but not formally tested. Mood is good.. Affect is euthymic.. Thought process is logical and goal-directed. Thought content: Denies auditory and visual hallucinations. No delusions or paranoia are noted. No current suicidal ideation since admission., and no homicidal ideation. Fund of knowledge is is intact and seems of normal intellect. Insight and judgment appear to be fair here in the hospital. Impulse control is fair as well. Cognition: Patient Appearance: Appropriate Level of Consciousness: Awake, Alert and Appropriate Ability to Follow Directions: Good Patient Orientation (long list): Person, Place, Time and Name Comprehension Ability: Mild Impairment Hallucination Type: None Thought Process: Appropriate Affect: Affect Description: Appropriate Behavior: Patient Behavior: Appropriate and Cooperative Speech Pattern: Clear Vitals/I&O/Wt Last Vital Signs Temp 97.9 F 06/03/21 06:00 Pulse 80 06/03/21 06:00 Resp 16 06/03/21 06:00 BP 131/88 06/03/21 06:00 Pulse Ox 97 06/03/21 06:00 Weight last 48 hrs Weight 99.79 kg Weight 99.79 kg Data NPU : 06/01/21 20:13 06/01/21 20:13 A&P Assessment and plan (1) Other schizophrenia: Plan: 1. Continue Seroquel 600 mg at bedtime and gabapentin 800 mg 3 times a day 2. Continue every 15 minute checks for safety. 3. Encourage individual, group and milieu therapies. 4. Encourage sober living treatment after discharge at the highest level of care to which she is willing to commit. 5. We will monitor for safety for himself in the community prior to discharge. Status: Chronic (2) Cannabis dependence, uncomplicated: Status: Acute (3) Suicidal ideation: Status: Acute Involuntary Hold Information 96 Hour Hold: 96 Hour Involuntary Admission: No Attestations NPU Medical Necessity Statement*: Inpatient hospitalization is medically necessary and the clinically appropriate intervention at this time. We will initiate medications and make changes as indicated Coding Level of Care Code Acute Supervising Law Enforcement Analyst for [facility] Diagnoses Other schizophrenia F20.89 Cannabis dependence, uncomplicated F12.20 Suicidal ideation R45.852
[2021-06-03] MEDS: gabapentin 400 mg Capsule 800 MG PO ×3 (08:24→20:25)
[2021-06-03] MEDS: predniSONE 20 mg Tablet PO ×2 (08:24→17:25)
[2021-06-03] MEDS: multivitamin therapeutic Tablet 1 TAB PO (08:24)
[2021-06-03] MEDS: acetaminophen 325 mg Tablet 650 MG PO (11:55)
[2021-06-03] MEDS: hyDROXYzine 25 mg Capsule 50 MG PO (11:55)
[2021-06-03 14:00] VITALS: BP 134/85; PULSE 99; RESP 18; TEMP 36.4; O2SAT 95
[2021-06-03] MEDS: quetiapine 300 mg Tablet 600 MG PO (20:25)
[2021-06-03 20:59] VITALS: BP 132/84; PULSE 81; RESP 16; O2SAT 95
[2021-06-04 06:00] VITALS: BP 133/79; PULSE 84; RESP 15; O2SAT 96
[2021-06-04] MEDS: multivitamin therapeutic Tablet 1 TAB PO (08:28)
[2021-06-04] MEDS: predniSONE 20 mg Tablet PO ×2 (08:28→18:04)
[2021-06-04] MEDS: gabapentin 400 mg Capsule 800 MG PO ×3 (08:28→20:10)
[2021-06-04 10:25] LABS: Add Urine Microscopic? NO; Charge for UA Resulting for Rev
[2021-06-04 10:42] LABS: Protein Urine Neg (Negative); Specific Gravity, Urine 1.015 (1.005-1.030); Urine Appearance Clear (CLEAR); Urine Color Straw (Yellow); pH Urine 5 (5-7)
[2021-06-04 10:43] LABS: Bilirubin Urine Neg (Negative); Blood Urine Neg (Negative); Glucose Urine UA 4+ (Normal); Ketones Urine Negative (Negative); Leukocyte Esterase Urine Negative (Negative); Nitrate Urine Negative (Negative); Urobilinogen Urine Norm (Negative)
[2021-06-04 11:04] LABS: Amphetamines Screen Urine Negative (Negative); Barbiturates Screen Urine Negative (Negative); Benzodiazepines Screen Urine Negative (Negative); Cocaine Screen Urine Negative (Negative); Opiate Screen Urine Negative (Negative); PCP Screen Urine Negative (Negative); THC Screen Urine Positive (Negative)
--- NOTE | 2021-06-04 13:15 | NPU.GN ---
[facility] Unit Group Topic:Psychiatric Education General Mood of Group: Dvaid did not attend or participate in group today. This communications writer met with patient about services with [facility] and having CSS and utilizing other resources. Patient refused.
--- NOTE | 2021-06-04 13:37 | P.NPUPN_ITS ---
Subjective NPU Subjective: Interval history: He says that he is doing great today. His mood is good. He denies any suicidal thoughts since he has been here. He denies any auditory or visual hallucinations. He feels good. He does not have an explanation for why he feels so much better now than he did 3 days ago. He was wanting to go home today because he has an appointment tomorrow morning. He was told it was too late in the day to make those arrangements. He reluctantly accepted that. Mental Status Exam MSE Comments: He was found back in bed after lunch. He was pleasant and cooperative with the evaluation. He appears his stated age and has several days of rbadshaw growth. He is in hospital scrubs. psychomotor activity is normal. Speech is at a regular rate and rhythm, normal volume, good articulation, not pressured. Alert, oriented X3. Attention and concentration appear to be good.. Memory is intact but not formally tested. Mood is good.. Affect is euthymic.. Thought process is logical and goal-directed. Thought content: Denies auditory and visual hallucinations. No delusions or paranoia are noted. Denies current suicidal ideation since admission., and no homicidal ideation. Fund of knowledge is is intact and seems of normal intellect. Insight and judgment appear to be fair here in the hospital. Impulse control is fair as well. Cognition: Patient Appearance: Disheveled/Poor Hygiene Level of Consciousness: Awake, Alert and Appropriate Ability to Follow Directions: Good Patient Orientation (long list): Person, Place, Time and Name Comprehension Ability: Mild Impairment Hallucination Type: None Delusion Description: Not Present Thought Process: Appropriate Affect: Affect Description: Calm Behavior: Patient Behavior: Cooperative Speech Pattern: Clear Vitals/I&O/Wt Last Vital Signs Temp 97.5 F L 06/03/21 14:00 Pulse 84 06/04/21 06:00 Resp 15 06/04/21 06:00 BP 133/79 06/04/21 06:00 Pulse Ox 96 06/04/21 06:00 Weight last 48 hrs Weight 99.79 kg Data NPU : 06/01/21 20:13 06/01/21 20:13 A&P Assessment and plan (1) Other schizophrenia: Plan: 1. Continue Seroquel 600 mg at bedtime and gabapentin 800 mg 3 times a day 2. Continue every 15 minute checks for safety. 3. Encourage individual, group and milieu therapies. 4. Encourage sober living treatment after discharge at the highest level of care to which she is willing to commit. 5. We will monitor for safety for himself in the community prior to discharge. 6. Plan on discharge home tomorrow. Status: Chronic (2) Cannabis dependence, uncomplicated: Status: Acute (3) Suicidal ideation: Status: Acute Involuntary Hold Information 96 Hour Hold: 96 Hour Involuntary Admission: No Attestations NPU Medical Necessity Statement*: Inpatient hospitalization is medically necessary and the clinically appropriate intervention at this time. We will initiate medications and make changes as indicated. Coding Level of Care Code Acute Tetryl Dissolver Operator for Panchito [facility] Diagnoses Other schizophrenia F20.89 Cannabis dependence, uncomplicated F12.20 Suicidal ideation R45.854
[2021-06-04 13:53] VITALS: BP 141/84; PULSE 82; RESP 16; TEMP 36.5; O2SAT 95
[2021-06-04] MEDS: hyDROXYzine 25 mg Capsule 50 MG PO (18:04)
[2021-06-04] MEDS: ibuprofen 600 mg Tablet PO (18:04)
[2021-06-04] MEDS: OLANZapine 5 mg ODT PO (18:04)
[2021-06-04] MEDS: quetiapine 300 mg Tablet 600 MG PO (20:10)
[2021-06-04 22:00] VITALS: BP 130/88; PULSE 80; RESP 19; O2SAT 98
[2021-06-05 06:00] VITALS: BP 132/80; PULSE 73; RESP 17; O2SAT 97
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
[2021-06-05] MEDS: multivitamin therapeutic Tablet 1 TAB PO (09:06)
[2021-06-05] MEDS: gabapentin 400 mg Capsule 800 MG PO (09:06)
[2021-06-05] MEDS: predniSONE 20 mg Tablet PO (09:06)
[2021-06-05] MEDS: ibuprofen 600 mg Tablet PO (10:32)
[2021-06-05 11:19] VITALS: BP 132/80; PULSE 73; RESP 17; O2SAT 97
--- NOTE | 2021-06-05 12:24 | NPU.GN ---
[facility] Topic:roup Topic: What are we Thankful For General Mood of Group: David did not attend group .
[2021-06-05 14:00] VITALS: BP 132/80; PULSE 73; RESP 17; O2SAT 97
== END 2021-06-05 14:05 | disposition home or self-care (01) | DRG 885 ==
LOC: ER 21:51 → NP 22:08
PROVIDERS: Emergency Medicine; Admitting Provider Psychiatry & Neurology Psychiatry; Emergency Provider Family Medicine; Visit Provider Psychiatry & Neurology Psychiatry
DX: F20.89 Other schizophrenia (principal); R45.851 Suicidal ideations; J44.9 Chronic obstructive pulmonary disease, unspecified; F12.20 Cannabis dependence, uncomplicated; I50.9 Heart failure, unspecified; F17.210 Nicotine dependence, cigarettes, uncomplicated; Z79.51 Long term (current) use of inhaled steroids
CPT/HCPCS: 71045; 80053; 80306; 80307; 81003; 83690; 84443; 85025; 93005; 97150; 97165; 99285; J7512; Q0162

== ENCOUNTER 2021-07-22 17:13 | Inpatient (IN) | payer MEDICAID, SELFPAY ==
[2021-07-22 17:35] VITALS: BP 160/105; PULSE 98; RESP 14; TEMP 37.2; O2SAT 95; BMI 28.5
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
[2021-07-22 18:20] LABS: Basophils # 0.1 10^3/uL (0.0-0.1); Eosinophils # 0.1 10^3/uL (0.0-0.8); Hematocrit 42.1 % (42.0-52.0); Hemoglobin 13.4 g/dL (11.7-16.6); Lymphocytes # 1.9 10^3/uL (0.8-4.8); Lymphocytes % 20.3 %; Mean Corpuscular HGB Conc 31.8 g/dL (30.0-36.0); Mean Corpuscular Hemoglobin 27.9 pg (28.0-34.0); Mean Corpuscular Volume 87.7 fl (80-94); Mean Platelet Volume 8.7 fL (7.4-10.4); Monocytes # 0.7 10^3/uL (0.2-0.9); Monocytes % 7.9 %; Neutrophils # 6.49 10^3/uL (1.8-7.7); Neutrophils % 69.5 %; Nucleated Red Blood Cells % 0 %; Platelet Count 353 10^3/cmm (130-400); White Blood Count 9.3 10^3/uL (4.0-10.0)
[2021-07-22 18:32] LABS: Add Urine Microscopic? NO; Charge for UA Resulting for Rev
[2021-07-22 18:36] LABS: Alanine Aminotransferase 20 U/L (0-41); Alkaline Phosphatase 92 IU/L (40-130); Anion Gap 15.9 (5-19); Aspartate Amino Transferase 16 U/L (0-40); Blood Urea Nitrogen 20 mg/dL (6-20); Calcium 8.5 mg/dL (8.5-10.5); Carbon Dioxide 24 mmol/L (22-29); Chloride 101 mmol/L (98-107); Globulin 2.4 g/dL (1.3-4.6); Glucose 101 mg/dL (65-115); Osmolality Calculated 285 mOsm/kg (285-295); Potassium 4.9 mmol/L (3.5-5.1); Salicylate 0.5 mg/dL (3-10); Sodium 136 mmol/L (136-145); Total Bilirubin 0.2 mg/dL (0.15-1.2); Total Protein 6.4 g/dL (6.6-8.7)
[2021-07-22 18:41] LABS: Bilirubin Urine Neg (Negative); Blood Urine Neg (Negative); Glucose Urine UA Norm (Normal); Ketones Urine Negative (Negative); Leukocyte Esterase Urine Negative (Negative); Nitrate Urine Negative (Negative); Protein Urine Neg (Negative); Urine Appearance Clear (CLEAR); Urine Color Yellow (Yellow); Urobilinogen Urine Norm (Negative); pH Urine 7 (5-7)
[2021-07-22 18:44] LABS: Acetaminophen < 5.0 ug/mL (10-30); Alcohol Level < 10 mg/dL (0-10)
[2021-07-22 18:51] LABS: Amphetamines Screen Urine Negative (Negative); Barbiturates Screen Urine Negative (Negative); Benzodiazepines Screen Urine Negative (Negative); Cocaine Screen Urine Negative (Negative); Opiate Screen Urine Negative (Negative); PCP Screen Urine Negative (Negative); THC Screen Urine Positive (Negative)
--- NOTE | 2021-07-22 19:04 | PC.NURSE ---
INFORMED CHARGE NURSE SHAHLA SANDERSON ABOUT PT HI. HE STATED NO FURTHER INTERVENTIONS ARE NEEDED.
--- NOTE | 2021-07-22 19:09 | PC.NURSE ---
REPORT GIVEN TO JOSE JUAN SANDERSON ASSUMED CARE.
[2021-07-22] MEDS: gabapentin 400 mg Capsule 800 MG PO (20:28)
[2021-07-22] MEDS: quetiapine 300 mg Tablet PO (20:28)
[2021-07-22] MEDS: hyDROXYzine 25 mg Capsule 50 MG PO (20:28)
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
[2021-07-22 20:41] VITALS: BP 166/78; PULSE 78; RESP 18; O2SAT 98
[2021-07-22 21:49] VITALS: BP 166/78; PULSE 78; RESP 18; TEMP 37.2; O2SAT 98
[2021-07-22 22:00] VITALS: BP 166/78; PULSE 78; RESP 17; TEMP 37.2
--- NOTE | 2021-07-23 01:13 | PC.ADMIT ---
[address] [facility] Admission Note: The patient,David Cortes,56 y/o, was given written information regarding hospital policies, unit procedures and contact persons. Patient's smoking status: current every day smoker. Vital Signs - 8 hr 07/22/21 17:35 07/22/21 20:41 07/22/21 21:49 Temperature 99.0 F 99.0 F Pulse Rate 98 78 78 Respiratory Rate 14 18 18 Blood Pressure 160/105 166/78 166/78 Pulse Oximetry 95 98 98 07/22/21 22:00 Temperature 99.0 F Pulse Rate 78 Respiratory Rate 17 Blood Pressure 166/78 Pulse Oximetry Patient has altered mental status, is poor historian and tired and not able to review medications and verify medlist with this nurse. Patient denies pain at this time.
[2021-07-23 06:00] VITALS: BP 134/83; PULSE 88; RESP 18; TEMP 36.6; O2SAT 97
--- NOTE | 2021-07-23 13:06 | NPU.GN ---
[facility] Group Topic: Group Discussion/ Choices General Mood of Group: Patient did not attend group he wanted to sleep.
[2021-07-23 14:00] VITALS: BP 152/95; PULSE 85; RESP 20; TEMP 36.6; O2SAT 97
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
[2021-07-23] MEDS: trazodone 50 mg Tablet PO (21:49)
[2021-07-23] MEDS: hyDROXYzine 25 mg Capsule 50 MG PO (21:50)
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
[2021-07-23] MEDS: haloperidol 5 mg Tablet PO (22:53)
--- NOTE | 2021-07-23 23:02 | PC.NURSE ---
PRN Administration: Patient endorsed audio and visual hallucinations. Stated I hear people chattering and see angels. Also c/o having trouble sleeping, patient was given PRN trazodone and hydroxyzine PO at approx 2150 with no noted effectiveness. Patient continued to complain of hearing and seeing things and trouble sleeping. Was heard mumbling to self in room and hollered out incoherently several times. PRN haldol given at 2300.
[2021-07-24 06:00] VITALS: RESP 16
--- NOTE | 2021-07-24 09:21 | PC.SOCIAL ---
[facility] Services Med Provider: Nell Trotter (Not seen in over 6 months)
--- NOTE | 2021-07-24 12:18 | NPU.GN ---
[facility] Group Topic:Depression Jose Carlosgo General Mood of Group: David attended group briefly but did not stay. His hygiene was poor, and he was not very social.
[2021-07-24 14:00] VITALS: BP 137/90; PULSE 97; RESP 18; TEMP 36.2; O2SAT 97
--- NOTE | 2021-07-24 16:09 | P.NPUPN_ITS ---
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 He reports that he is starting to feel better and is optimistic that his he has his medication he will be able to manage his psychosocial circumstances. He reports he is eating and sleeping okay. Mental Status Exam MSE Comments: This is a overweight possibly male with hospital scrubs on with limited grooming but improved eye contact. No abnormal movements except for mild psychomotor retardation. Cooperative with exam in no acute distress. Speech was slightly decreased rate and volume. Mood described as a little better, affect congruent. Thought process organized, thought content: Patient denied suicidal or homicidal ideation, there were no delusions reported or noted, he denied any auditory or visual hallucinations. Attention and concentration were intact and memory appeared reliable but none were formally tested. He is alert and oriented x3. Insight and judgment are limited, but improving and impulse control is limited. Vitals/I&O/Wt Last Vital Signs Temp 97.2 F L 07/24/21 14:00 Pulse 97 07/24/21 14:00 Resp 18 07/24/21 14:00 BP 137/90 07/24/21 14:00 Pulse Ox 97 07/24/21 14:00 Data NPU : 07/22/21 18:14 07/22/21 18:14 A&P Additional A&P Information (1) Suicidal ideation: (2) Auditory hallucination: (3) Nonspecific abdominal pain: (4) Other schizophrenia: (5) Cannabis dependence, uncomplicated: (6) Asthma: (7) COPD (chronic obstructive pulmonary disease): (8) CHF (congestive heart failure): (9) Nicotine dependence, cigarettes, uncomplicated: (10) Opioid dependence, in remission: (11) Methamphetamine abuse: Additional A&P Information This is a 56-year-old possibly splenic male with long history of mental health and addiction issues who presents off his medication access to his medication reporting that he is reading today and through the ringer and started having suicidal thoughts about being without his medication. 1. Continue current medication. Pharmacy identified he has access to medication whenever he is ready to pick it up. 2. Continue every 15 minute checks for safety. 3. Encourage individual, group and milieu therapies. 4. Encourage sober living treatment after discharge at the highest level of care to which he is willing to commit. 5. Plan for discharge in the morning. Involuntary Hold Information 96 Hour Hold: 96 Hour Involuntary Admission: No Attestations NPU Medical Necessity Statement*: Inpatient hospitalization is medically necessary and the clinically appropriate intervention at this time. We will monitor medication to make changes as indicated.Likely length of stay 1-3 days. Coding Level of Care Code Acute Engineer Automated Equipment for Panchito Cooper
[2021-07-24 21:32] VITALS: BP 137/90; PULSE 97; RESP 18; TEMP 36.2; O2SAT 97
[2021-07-24] MEDS: hyDROXYzine 25 mg Capsule 50 MG PO (22:43)
[2021-07-24] MEDS: trazodone 50 mg Tablet PO (22:47)
[2021-07-25] MEDS: hyDROXYzine 25 mg Capsule 50 MG PO (05:35)
--- NOTE | 2021-07-25 05:37 | PC.NURSE ---
Patient was C/O anxiety and tossing and turning not sleeping although patient was snoring and or sound asleep upon rounding. Patient stated that he has not seen in four days. ( this is his third night here ) and requesting seroquil. I counciled patient about speaking to MD about seroquil.
[2021-07-25 06:00] VITALS: BP 141/94; PULSE 91; RESP 19; TEMP 36.7; O2SAT 96
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
[2021-07-25] MEDS: gabapentin 400 mg Capsule 800 MG PO (10:35)
[2021-07-25 12:48] VITALS: BP 141/94; PULSE 91; RESP 19; TEMP 36.7; O2SAT 96
--- NOTE | 2021-07-25 13:09 | NPU.GN ---
[facility] Group Topic:Wheel of Positive thoughts versus Negative Thoughts General Mood of Group: David did not attend or participate in group today. He refused [facility] services on 07/24/21. He is linked with [facility] [place] Nell Trotter but has not seen her in over 6 months.
== END 2021-07-25 14:05 | disposition home or self-care (01) | DRG 885 ==
LOC: ER 20:05 → NP 07-24 09:18
PROVIDERS: Admitting Provider Psychiatry & Neurology Psychiatry; Emergency Provider Physician Assistant; Visit Provider Psychiatry & Neurology Psychiatry
DX: F25.1 Schizoaffective disorder, depressive type (principal); R45.851 Suicidal ideations; F12.20 Cannabis dependence, uncomplicated; F15.10 Other stimulant abuse, uncomplicated; F11.21 Opioid dependence, in remission; J44.9 Chronic obstructive pulmonary disease, unspecified; F17.210 Nicotine dependence, cigarettes, uncomplicated; K59.00 Constipation, unspecified; Z79.4 Long term (current) use of insulin
CPT/HCPCS: 74176; 80053; 80306; 80307; 81003; 85025; 90471; 90686; 97165; 99285

== ENCOUNTER → 2021-08-14 08:59 | Outpatient (BNVA) | payer MEDICAID, SELFPAY | PROVIDERS: Visit Provider Nurse Practitioner | DX: F20.89 Other schizophrenia (principal); F12.20 Cannabis dependence, uncomplicated; F17.210 Nicotine dependence, cigarettes, uncomplicated; F15.20 Other stimulant dependence, uncomplicated; F11.21 Opioid dependence, in remission | CPT/HCPCS: 99214 ==

== ENCOUNTER 2021-09-18 15:51 | Inpatient (IN) | payer MEDICAID, SELFPAY ==
[2021-09-18 15:56] VITALS: BP 139/74; PULSE 87; RESP 20; TEMP 36.3; O2SAT 97; BMI 29.8
--- NOTE | 2021-09-18 16:13 | ED_ITS ---
Documented by User: Escobar Carranza DO 09/19/21 06:41 HPI - COVID General: Chief Complaint: COVID symptoms Stated Complaint: Difficulty breathing, muscle aches Time Seen by Provider: 09/18/21 16:01 Source: patient Mode of arrival: ambulatory Limitations: no limitations Triage information: Has fever, cough or shortness of breath . No known COVID + exposure last 14 days History of Present Illness: 56-year-old male presents emergency room complaining of difficulty with urination, slight dysuria. States has not been able to void well since yesterday. He also has had a little bit of a cough has been nonproductive he denies any diarrhea he has had some very mild myalgias no fever. No recent change in medications. No abdominal pain no flank pain. Cough is been nonproductive. He was tested for Covid 2 weeks ago and was negative, has not been vaccinated. MD complaint: has COVID symptoms COVID 19 common symptoms: positive cough, non-productive cough, dyspnea and fat igue; negative fever(s), chills, throat pain, nasal congestion, nausea, vomiting or diarrhea COVID 19 other sytmptoms: negative chest pain Treatment prior to arrival: none COVID Results: SARS-CoV-2 Antigen (Rapid) Negative (Negative) 03/18/21 20:30 03/18/21 Nasal/Oral Coronavirus 2019 PCR Negative 03/05/20 15:25 03/05/20 SARS-CoV-2 (PCR) Not detected (NOT DETECT) 09/18/21 16:20 09/18/21 Coronavirus Type 229E (PCR) Detected (NOT DETECT) A 09/18/21 16:20 09/18/21 Review of Systems Const: Reports: fatigue; Denies: fever(s) or chills ENMT: Denies: throat pain, ear or mastoid pain, nasal discharge or nasal congestion Card: Denies: chest pain, edema, dyspnea on exertion or orthopnea Resp: Reports: dyspnea and non-productive cough GI: Denies: abdominal pain, nausea, vomiting, hematemesis, coffee ground emesis, diarrhea, constipation, bloating, hematochezia or melena : Denies: flank pain, dysuria, urinary frequency or urinary urgency Skin/Breast: Denies: rash or pruritus PFSH ED PFSH: Medical History Asthma Cannabis dependence, uncomplicated CHF (congestive heart failure) COPD (chronic obstructive pulmonary disease) Other stimulant dependence, uncomplicated Surgical History Status post club foot correction at Family History Mother Psychiatric illness Schizophrenia Social History Smoking and tobacco status: current every day smoker cigarettes Smoking risk assessment/counseling performed?: Yes Tobacco counseling given: counseling >3 minutes Alcohol intake: never Household members: other Details: roommate x 1 Physical Exam Const: GENERAL APPEARANCE: cooperative and comfortable ORIENTATION/CONSCIOUSNESS: Yes awake, Yes oriented to person, Yes oriented to place and Yes oriented to time HENMT: COMMON NORMALS: normocephalic, atraumatic and hearing grossly normal bilaterally HEAD & SCALP: normocephalic and atraumatic Neck/C-Spine: COMMON NORMALS: no JVD Resp: COMMON NORMALS: normal respiratory effort, No retractions, No use of accessory muscles and clear to auscultation bilaterally AUSCULTATION: clear to auscultation bilaterally Cardio: COMMON NORMALS: no JVD, regular rate, regular rhythm and No murmurs present (Cardio) RATE: regular rate RHYTHM: regular rhythm GI: COMMON NORMALS: Soft to palpation and No hepatosplenomegaly present AUSCULTATION: Yes normoactive bowel sounds PALPATION: Yes Soft to palpation, No Tenderness to palpation present (GI), No Guarding due to palpation present (GI) and Yes No hepatosplenomegaly present Extremity: COMMON NORMALS: normal to inspection, capillary refill normal, no clubbing, cyanosis or edema, no calf tenderness and no pedal edema Neuro: SENSORIUM/ORIENTATION: Yes oriented to person, Yes oriented to place and Yes oriented to time Skin: COMMON NORMALS: no rashes or lesions noted GENERAL SKIN EXAM: no rashes or lesions noted Course Vital Signs: Vital signs: Vital Signs Temperature 97.4 F L 09/18/21 21:43 Pulse Rate 87 09/18/21 21:43 Respiratory Rate 18 09/19/21 06:00 Blood Pressure 132/87 09/18/21 21:43 Pulse Oximetry 98 09/18/21 21:43 [facility] - COVID Medical Decision Making Seen and evaluated patient. He had viral upper respiratory symptoms and signs of BPH she was planned to be discharged home with tamsulosin and supportive cares and follow-up with a PCP. We returned the next day and was signing off his chart found that after we had discharged him he began to complain of suicidal ideation I had already left for the end of my shift Dr. Maher picked up his care and ultimately ended up admitting him see his notes. Patient had been discharged by Dr. Dennis for viral-like symptoms. When nurse went to discharge patient he expressed that he is now having suicidal thoughts that he has to go home. I went and spoke to patient he states that he is feeling stressed and does not want to go home and is suicidal he has no active plan I spoke to Dr. Louis who actually took care of patient in July and will admit at this time patient is voluntary. Lab Data : 09/18/21 16:20 09/18/21 16:20 Radiology Impressions Chest X-Ray 09/18/21 16:21 IMPRESSION: No acute finding. Laboratory Results WBC 5.7 10^3/uL (4.0-10.0) 09/18/21 16:20 RBC 5.19 10^6/uL (4.1-5.3) 09/18/21 16:20 Hgb 14.9 g/dL (11.7-16.6) 09/18/21 16:20 Hct 47.1 % (42.0-52.0) 09/18/21 16:20 MCV 90.8 fl (80-94) 09/18/21 16:20 MCH 28.7 pg (28.0-34.0) 09/18/21 16:20 MCHC 31.6 g/dL (30.0-36.0) 09/18/21 16:20 RDW 14.8 % (12.1-15.1) 09/18/21 16:20 Plt Count 334 10^3/cmm (130-400) 09/18/21 16:20 MPV 9.2 fL (7.4-10.4) 09/18/21 16:20 Neut % (Auto) 68.5 % 09/18/21 16:20 Lymph % (Auto) 19.6 % 09/18/21 16:20 [place] % (Auto) 7.1 % 09/18/21 16:20 Eos % (Auto) 3.5 % 09/18/21 16:20 Baso % (Auto) 1.1 % 09/18/21 16:20 Neut # (Auto) 3.88 10^3/uL (1.8-7.7) 09/18/21 16:20 Lymph # (Auto) 1.1 10^3/uL (0.8-4.8) 09/18/21 16:20 [place] # (Auto) 0.4 10^3/uL (0.2-0.9) 09/18/21 16:20 Eos # (Auto) 0.2 10^3/uL (0.0-0.8) 09/18/21 16:20 Baso # (Auto) 0.1 10^3/uL (0.0-0.1) 09/18/21 16:20 Nucleated RBC % (auto) 0 % 09/18/21 16:20 Nucleated RBCs # 0.0 /100WBC 09/18/21 16:20 Sodium 142 mmol/L (136-145) 09/18/21 16:20 Potassium 4.2 mmol/L (3.5-5.1) 09/18/21 16:20 Chloride 102 mmol/L (98-107) 09/18/21 16:20 Carbon Dioxide 28 mmol/L (22-29) 09/18/21 16:20 Anion Gap 16.2 (5-19) 09/18/21 16:20 BUN 16 mg/dL (6-20) 09/18/21 16:20 Creatinine 0.9 mg/dL (0.7-1.2) 09/18/21 16:20 GFR Calculation 87.3 mL/min (90-130) L 09/18/21 16:20 Glucose 121 mg/dL (65-115) H 09/18/21 16:20 Calculated Osmolality 296 mOsm/kg (285-295) H 09/18/21 16:20 Calcium 9.5 mg/dL (8.5-10.5) 09/18/21 16:20 Urine Color Yellow (Yellow) 09/18/21 17:45 Urine Appearance Clear (CLEAR) 09/18/21 17:45 Urine pH 5 (5-7) 09/18/21 17:45 Ur Specific [place] 1.025 (1.005-1.030) 09/18/21 17:45 Urine Protein Neg (Negative) 09/18/21 17:45 Urine Glucose (UA) Norm (Normal) 09/18/21 17:45 Urine Ketones Negative (Negative) 09/18/21 17:45 Urine Blood Neg (Negative) 09/18/21 17:45 Urine Nitrate Negative (Negative) 09/18/21 17:45 Urine Bilirubin Neg (Negative) 09/18/21 17:45 Urine Urobilinogen Neg mg/dL (Negative) 09/18/21 17:45 Ur Leukocyte Esterase Negative (Negative) 09/18/21 17:45 Salicylates < 0.3 mg/dL (3-10) L 09/18/21 16:20 Urine Opiates Screen Negative ng/mL (Negative) 09/18/21 17:45 Acetaminophen < 5.0 ug/mL (10-30) L 09/18/21 16:20 Ur Barbiturates Screen Negative ng/mL (Negative) 09/18/21 17:45 Ur Phencyclidine Scrn Negative ng/mL (Negative) 09/18/21 17:45 Ur Amphetamines Screen Positive ng/mL (Negative) H 09/18/21 17:45 U Benzodiazepines Scrn Negative ng/mL (Negative) 09/18/21 17:45 Urine Cocaine Screen Negative ng/mL (Negative) 09/18/21 17:45 U Marijuana (THC) Screen Positive ng/mL (Negative) H 09/18/21 17:45 Ethyl Alcohol < 10 mg/dL (0-10) 09/18/21 16:20 Coronavirus 229E (PCR) Detected (NOT DETECT) A 09/18/21 16:20 SARS-CoV-2 (PCR) Not detected (NOT DETECT) 09/18/21 16:20 SARS-CoV-2 Antigen (Rapid) Negative (Negative) 03/18/21 20:30 03/18/21 Nasal/Oral Coronavirus 2019 PCR Negative 03/05/20 15:25 03/05/20 SARS-CoV-2 (PCR) Not detected (NOT DETECT) 09/18/21 16:20 09/18/21 Coronavirus Type 229E (PCR) Detected (NOT DETECT) A 09/18/21 16:20 09/18 Discharge Plan Discharge Patient Disposition: Admitted As Inpatient Admit Provider: Tomas Louis Clinical Impression: Benign prostatic hyperplasia, Viral URI, Suicidal ideation Condition: Stable Discharge Diet: Usual diet Discharge Activity: Increase activity as tolerated Coding Level of Care Code ED Manager Systems for [place] Fwd Exam Comprehensive Documented by User: Fany Maher MD 09/18/21 21:17 HPI - COVID General: Chief Complaint: COVID symptoms Stated Complaint: Difficulty breathing, muscle aches Time Seen by Provider: 09/18/21 16:01 COVID Results: SARS-CoV-2 Antigen (Rapid) Negative (Negative) 03/18/21 20:30 03/18/21 Nasal/Oral Coronavirus 2019 PCR Negative 03/05/20 15:25 03/05/20 SARS-CoV-2 (PCR) Not detected (NOT DETECT) 09/18/21 16:20 09/18/21 Coronavirus Type 229E (PCR) Detected (NOT DETECT) A 09/18/21 16:20 0 09/18/21 [facility] ED PFSH: Medical History Asthma Cannabis dependence, uncomplicated CHF (congestive heart failure) COPD (chronic obstructive pulmonary disease) Other stimulant dependence, uncomplicated Surgical History Status post club foot correction at Family History Mother Psychiatric illness Schizophrenia Social History Smoking and tobacco status: current every day smoker cigarettes Smoking risk assessment/counseling performed?: Yes Tobacco counseling given: counseling >3 minutes Alcohol intake: never Household members: other Details: roommate x 1 Course Vital Signs: Vital signs: Vital Signs Temperature 97.4 F L 09/18/21 21:43 Pulse Rate 87 09/18/21 21:43 Respiratory Rate 18 09/19/21 06:00 Blood Pressure 132/87 09/18/21 21:43 Pulse Oximetry 98 09/18/21 21:43 [facility] - COVID Medical Decision Making Patient had been discharged by Dr. Dennis for viral-like symptoms. When nurse went to discharge patient he expressed that he is now having suicidal thoughts that he has to go home. I went and spoke to patient he states that he is feeling stressed and does not want to go home and is suicidal he has no active plan I spoke to Dr. Louis who actually took care of patient in July and will admit at this time patient is voluntary. Lab Data : 09/18/21 16:20 09/18/21 16:20 Radiology Impressions Chest X-Ray 09/18/21 16:21 IMPRESSION: No acute finding. Laboratory Results WBC 5.7 10^3/uL (4.0-10.0) 09/18/21 16:20 RBC 5.19 10^6/uL (4.1-5.3) 09/18/21 16:20 Hgb 14.9 g/dL (11.7-16.6) 09/18/21 16:20 Hct 47.1 % (42.0-52.0) 09/18/21 16:20 MCV 90.8 fl (80-94) 09/18/21 16:20 MCH 28.7 pg (28.0-34.0) 09/18/21 16:20 MCHC 31.6 g/dL (30.0-36.0) 09/18/21 16:20 RDW 14.8 % (12.1-15.1) 09/18/21 16:20 Plt Count 334 10^3/cmm (130-400) 09/18/21 16:20 MPV 9.2 fL (7.4-10.4) 09/18/21 16:20 Neut % (Auto) 68.5 % 09/18/21 16:20 Lymph % (Auto) 19.6 % 09/18/21 16:20 [place] % (Auto) 7.1 % 09/18/21 16:20 Eos % (Auto) 3.5 % 09/18/21 16:20 Baso % (Auto) 1.1 % 09/18/21 16:20 Neut # (Auto) 3.88 10^3/uL (1.8-7.7) 09/18/21 16:20 Lymph # (Auto) 1.1 10^3/uL (0.8-4.8) 09/18/21 16:20 [place] # (Auto) 0.4 10^3/uL (0.2-0.9) 09/18/21 16:20 Eos # (Auto) 0.2 10^3/uL (0.0-0.8) 09/18/21 16:20 Baso # (Auto) 0.1 10^3/uL (0.0-0.1) 09/18/21 16:20 Nucleated RBC % (auto) 0 % 09/18/21 16:20 Nucleated RBCs # 0.0 /100WBC 09/18/21 16:20 Sodium 142 mmol/L (136-145) 09/18/21 16:20 Potassium 4.2 mmol/L (3.5-5.1) 09/18/21 16:20 Chloride 102 mmol/L (98-107) 09/18/21 16:20 Carbon Dioxide 28 mmol/L (22-29) 09/18/21 16:20 Anion Gap 16.2 (5-19) 09/18/21 16:20 BUN 16 mg/dL (6-20) 09/18/21 16:20 Creatinine 0.9 mg/dL (0.7-1.2) 09/18/21 16:20 GFR Calculation 87.3 mL/min (90-130) L 09/18/21 16:20 Glucose 121 mg/dL (65-115) H 09/18/21 16:20 Calculated Osmolality 296 mOsm/kg (285-295) H 09/18/21 16:20 Calcium 9.5 mg/dL (8.5-10.5) 09/18/21 16:20 Urine Color Yellow (Yellow) 09/18/21 17:45 Urine Appearance Clear (CLEAR) 09/18/21 17:45 Urine pH 5 (5-7) 09/18/21 17:45 Ur Specific [place] 1.025 (1.005-1.030) 09/18/21 17:45 Urine Protein Neg (Negative) 09/18/21 17:45 Urine Glucose (UA) Norm (Normal) 09/18/21 17:45 Urine Ketones Negative (Negative) 09/18/21 17:45 Urine Blood Neg (Negative) 09/18/21 17:45 Urine Nitrate Negative (Negative) 09/18/21 17:45 Urine Bilirubin Neg (Negative) 09/18/21 17:45 Urine Urobilinogen Neg mg/dL (Negative) 09/18/21 17:45 Ur Leukocyte Esterase Negative (Negative) 09/18/21 17:45 Salicylates < 0.3 mg/dL (3-10) L 09/18/21 16:20 Urine Opiates Screen Negative ng/mL (Negative) 09/18/21 17:45 Acetaminophen < 5.0 ug/mL (10-30) L 09/18/21 16:20 Ur Barbiturates Screen Negative ng/mL (Negative) 09/18/21 17:45 Ur Phencyclidine Scrn Negative ng/mL (Negative) 09/18/21 17:45 Ur Amphetamines Screen Positive ng/mL (Negative) H 09/18/21 17:45 U Benzodiazepines Scrn Negative ng/mL (Negative) 09/18/21 17:45 Urine Cocaine Screen Negative ng/mL (Negative) 09/18/21 17:45 U Marijuana (THC) Screen Positive ng/mL (Negative) H 09/18/21 17:45 Ethyl Alcohol < 10 mg/dL (0-10) 09/18/21 16:20 Coronavirus 229E (PCR) Detected (NOT DETECT) A 09/18/21 16:20 SARS-CoV-2 (PCR) Not detected (NOT DETECT) 09/18/21 16:20 SARS-CoV-2 Antigen (Rapid) Negative (Negative) 03/18/21 20:30 03/18/21 Nasal/Oral Coronavirus 2019 PCR Negative 03/05/20 15:25 03/05/20 SARS-CoV-2 (PCR) Not detected (NOT DETECT) 09/18/21 16:20 09/18/21 Coronavirus Type 229E (PCR) Detected (NOT DETECT) A 09/18/21 16:20 09/18/21 Discharge Plan Discharge Patient Disposition: Admitted As Inpatient Admit Provider: Tomas Louis Clinical Impression: Benign prostatic hyperplasia, Viral URI, Suicidal ideation Condition: Stable Discharge Diet: Usual diet Discharge Activity: Increase activity as tolerated Coding Level of Care Code ED Manager Systems for [place] Fwd Exam Comprehensive
--- NOTE | 2021-09-18 16:21 | XRR_ITS ---
PROCEDURE INFORMATION: Exam: XR Chest Exam date and time: 09/18/2021 4:21 PM Age: 56 years old Clinical indication: Cough and shortness of breath; Additional info: Dyspnea/cough TECHNIQUE: Imaging protocol: XR of the chest. Views: 1 view. COMPARISON: CR XR chest 1V portable [id number] 06/01/2021 7:56 PM FINDINGS: Lungs: Unremarkable. No consolidation. Pleural spaces: Unremarkable. No pleural effusion. No pneumothorax. Heart/Mediastinum: Unremarkable. No cardiomegaly. Bones/joints: [place] in the right humeral head. XR/XR chest 1V portable [id number] IMPRESSION: No acute finding.
[2021-09-18 16:27] VITALS: O2SAT 97
[2021-09-18] MEDS: sodium chloride 0.9% 1,000 ML 999 ML IV ×2 (16:37→17:16)
[2021-09-18 16:53] LABS: Basophils # 0.1 10^3/uL (0.0-0.1); Basophils % 1.1 %; Eosinophils # 0.2 10^3/uL (0.0-0.8); Eosinophils % 3.5 %; Hematocrit 47.1 % (42.0-52.0); Hemoglobin 14.9 g/dL (11.7-16.6); Lymphocytes # 1.1 10^3/uL (0.8-4.8); Lymphocytes % 19.6 %; Mean Corpuscular HGB Conc 31.6 g/dL (30.0-36.0); Mean Corpuscular Hemoglobin 28.7 pg (28.0-34.0); Mean Corpuscular Volume 90.8 fl (80-94); Mean Platelet Volume 9.2 fL (7.4-10.4); Monocytes # 0.4 10^3/uL (0.2-0.9); Monocytes % 7.1 %; Neutrophils # 3.88 10^3/uL (1.8-7.7); Neutrophils % 68.5 %; Nucleated Red Blood Cells % 0 %; Platelet Count 334 10^3/cmm (130-400); Red Blood Count 5.19 10^6/uL (4.1-5.3); Red Cell Distribution Width 14.8 % (12.1-15.1); White Blood Count 5.7 10^3/uL (4.0-10.0)
[2021-09-18 17:20] LABS: Anion Gap 16.2 (5-19); Blood Urea Nitrogen 16 mg/dL (6-20); Calcium 9.5 mg/dL (8.5-10.5); Carbon Dioxide 28 mmol/L (22-29); Chloride 102 mmol/L (98-107); Glomerular Filtration Rate 87.3 mL/min (90-130); Glucose 121 mg/dL (65-115); Osmolality Calculated 296 mOsm/kg (285-295); Potassium 4.2 mmol/L (3.5-5.1); Sodium 142 mmol/L (136-145)
[2021-09-18 17:59] LABS: Add Urine Microscopic? NO; Charge for UA Resulting for Rev
[2021-09-18 18:05] LABS: Bilirubin Urine Neg (Negative); Blood Urine Neg (Negative); Glucose Urine UA Norm (Normal); Ketones Urine Negative (Negative); Leukocyte Esterase Urine Negative (Negative); Nitrate Urine Negative (Negative); Protein Urine Neg (Negative); Specific Gravity, Urine 1.025 (1.005-1.030); Urine Appearance Clear (CLEAR); Urine Color Yellow (Yellow); Urobilinogen Urine Neg (Negative); pH Urine 5 (5-7)
[2021-09-18 18:50] LABS: Adenovirus Not Detected (NOT DETECT); Chlamydia Pneumoniae Not Detected (NOT DETECT); Coronavirus 229E,HKU1,NL63,OC4 Detected (NOT DETECT); Human Metapneumovirus Not Detected (NOT DETECT); Human Rhinovirus/Enterovirus Not Detected (NOT DETECT); Influenza A Not Detected (NOT DETECT); Influenza A H1 Not Detected (NOT DETECT); Influenza A H1-2009 Not Detected (NOT DETECT); Influenza A H3 Not Detected (NOT DETECT); Influenza B Not Detected (NOT DETECT); Mycoplasma Pneumoniae Not Detected (NOT DETECT); Parainfluenza Virus Type 1 Not Detected (NOT DETECT); Parainfluenza Virus Type 2 Not Detected (NOT DETECT); Parainfluenza Virus Type 3 Not Detected (NOT DETECT); Parainfluenza Virus Type 4 Not Detected (NOT DETECT); Respiratory Syncytial Virus A Not Detected (NOT DETECT); Respiratory Syncytial Virus B Not Detected (NOT DETECT); SARS-COV-2 Not Detected (NOT DETECT)
[2021-09-18 19:08] LABS: Acetaminophen < 5.0 ug/mL (10-30); Alcohol Level < 10 mg/dL (0-10); Salicylate < 0.3 mg/dL (3-10)
[2021-09-18 19:53] LABS: Amphetamines Screen Urine Positive (Negative); Barbiturates Screen Urine Negative (Negative); Benzodiazepines Screen Urine Negative (Negative); Cocaine Screen Urine Negative (Negative); Opiate Screen Urine Negative (Negative); PCP Screen Urine Negative (Negative); THC Screen Urine Positive (Negative)
[2021-09-18 20:51] VITALS: BP 159/95; PULSE 81; RESP 20; O2SAT 96
[2021-09-18 21:40] VITALS: BP 140/90; PULSE 80; O2SAT 96
[2021-09-18 21:43] VITALS: BP 132/87; PULSE 87; RESP 18; TEMP 36.3; O2SAT 98
[2021-09-18] MEDS: quetiapine 300 mg Tablet 600 MG PO (22:42)
[2021-09-18] MEDS: gabapentin 400 mg Capsule 800 MG PO (23:15)
[2021-09-18] MEDS: guaiFENesin-dextromethorphan UDC 10 mL PO (23:15)
[2021-09-19 06:00] VITALS: RESP 18
[2021-09-19] MEDS: ibuprofen 600 mg Tablet PO (10:29)
[2021-09-19] MEDS: guaiFENesin-dextromethorphan UDC 10 mL PO (10:29)
[2021-09-19] MEDS: multivitamin therapeutic Tablet 1 TAB PO (10:29)
[2021-09-19] MEDS: gabapentin 400 mg Capsule 800 MG PO ×3 (10:30→20:18)
--- NOTE | 2021-09-19 10:37 | NPU.GN ---
[facility] Group Topic: [place] General Mood of Group: David did not attend group this morning. Staff tried to meet with client about discussing [facility] services and client refused. Client did not want to talk and wanted to sleep.
[2021-09-19 14:00] VITALS: BP 149/88; PULSE 99; RESP 16; TEMP 36.6; O2SAT 98
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
[2021-09-19] MEDS: quetiapine 300 mg Tablet 600 MG PO (20:18)
[2021-09-19] MEDS: hyDROXYzine 25 mg Capsule 50 MG PO (20:19)
[2021-09-19 20:34] VITALS: BP 165/104; PULSE 89; RESP 20; TEMP 36.4; O2SAT 98
[2021-09-20] MEDS: OLANZapine 5 mg ODT PO (01:36)
[2021-09-20 06:00] VITALS: BP 141/82; PULSE 79; RESP 18; TEMP 36.8; O2SAT 94
[2021-09-20] MEDS: ibuprofen 600 mg Tablet PO (08:19)
[2021-09-20] MEDS: gabapentin 400 mg Capsule 800 MG PO ×3 (08:19→20:16)
[2021-09-20] MEDS: multivitamin therapeutic Tablet 1 TAB PO (08:20)
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
[2021-09-20 14:00] VITALS: BP 154/99; PULSE 78; RESP 16; TEMP 36.4; O2SAT 98
[2021-09-20 16:56] VITALS: PULSE 101; RESP 18; O2SAT 97
[2021-09-20 19:00] VITALS: BP 153/91; PULSE 91; RESP 18; TEMP 36.8; O2SAT 99
[2021-09-20] MEDS: quetiapine 300 mg Tablet 600 MG PO (20:15)
[2021-09-20] MEDS: saline nasal spray 44mL Btl 1 SPRAY NASAL (21:33)
[2021-09-21 06:00] VITALS: BP 126/82; PULSE 78; RESP 17; TEMP 36.6; O2SAT 96
--- NOTE | 2021-09-21 07:32 | W.PM.NPUPNS ---
Subjective NPU Subjective: He said that he is panicky at times. He did not understand that he could take Vistaril and Zyprexa for his anxiety attacks. He also complains of stuffy nose which causes him to wake up in panic. Despite that he says that he slept well last night. He does not feel like he is ready to go home and agreed to wait until tomorrow. He requested to take some Zyrtec now and vistaril at night to see if that will help stuffy nose. He asked about the COVID immunization and was told that it should not be given so soon after having tested positive for COVID. Mental Status Exam MSE Comments: This is a overweight possibly male with hospital scrubs on with limited grooming. He was in bed asleep but woke up easily. Good eye contact.? No abnormal movements. mild psychomotor retardation.? Cooperative with exam in no distress.? Speech was normal rate and volume.? Mood described as a little down and tired, affect congruent.? Thought process organized, thought content: Patient denied suicidal or homicidal ideation, there were no delusions reported or noted, he denied any auditory or visual hallucinations.? Attention and concentration were intact and memory appeared reliable but none were formally tested.? He is alert and oriented x3.? Insight and judgment are limited and impulse control is impaired. Cognition: Patient Appearance: Appropriate Level of Consciousness: Awake Patient Cognition Impaired: No Ability to Follow Directions: Excellent Patient Orientation (long list): Person, Place, Time, Name, Age and Birthday Comprehension Ability: No Impairment Hallucination Type: None Delusion Description: Not Present Thought Process: Appropriate and Logical Affect: Affect Description: Appropriate, [place] and Calm Behavior: Patient Behavior: Appropriate, Cooperative and Withdrawn Speech Pattern: Appropriate and Clear Vitals/I&O/Wt Last Vital Signs Temp 97.9 F 09/21/21 06:00 Pulse 78 09/21/21 06:00 Resp 17 09/21/21 06:00 BP 126/82 09/21/21 06:00 Pulse Ox 96 09/21/21 06:00 Data NPU : 09/18/21 16:20 09/18/21 16:20 A&P Assessment and plan (1) Benign prostatic hyperplasia: Status: Acute (2) Viral URI: Status: Acute (3) Other stimulant dependence, uncomplicated: Status: Acute (4) Auditory hallucination: Status: Acute (5) Suicidal ideation: Status: Acute (6) Cannabis dependence, uncomplicated: Status: Acute (7) Asthma: Status: Acute (8) COPD (chronic obstructive pulmonary disease): Status: Acute (9) Opioid dependence, in remission: Status: Acute (10) Nicotine dependence, cigarettes, uncomplicated: Status: Chronic (11) CHF (congestive heart failure): Status: Acute (12) Malingering: Status: Acute Plan This is a 56-year-old possibly male with long history of mental health and addiction issues who presents much like his last admission with issues with access to his medication reporting to have suicidal thoughts. 1.? Continue current medication.? add zyrtec QAM and Vistaril at bedtime. 2.? Continue every 15 minute checks for safety. 3.? Encourage individual, group and milieu therapies. 4.? Encourage sober living treatment after discharge at the highest level of care to which he is willing to commit. Involuntary Hold Information 96 Hour Hold: 96 Hour Involuntary Admission: No Attestations NPU Medical Necessity Statement*: Inpatient hospitalization is medically necessary and the clinically appropriate intervention at this time. We will initiate medications and make changes as indicated. 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
[2021-09-21] MEDS: multivitamin therapeutic Tablet 1 TAB PO (08:32)
[2021-09-21] MEDS: cetirizine 10 mg Tablet PO (08:32)
[2021-09-21] MEDS: gabapentin 400 mg Capsule 800 MG PO ×3 (08:32→19:58)
[2021-09-21] MEDS: saline nasal spray 44mL Btl 1 SPRAY NASAL (12:19)
[2021-09-21] MEDS: hyDROXYzine 25 mg Capsule 50 MG PO ×2 (12:20→19:58)
[2021-09-21 14:00] VITALS: BP 94/59; PULSE 91; RESP 18; TEMP 36.5; O2SAT 99
[2021-09-21] MEDS: acetaminophen 325 mg Tablet 650 MG PO (18:15)
[2021-09-21 19:26] VITALS: BP 127/71; PULSE 71; TEMP 36.8; O2SAT 98
[2021-09-21] MEDS: ibuprofen 600 mg Tablet PO (19:59)
[2021-09-21] MEDS: quetiapine 300 mg Tablet 600 MG PO (19:59)
[2021-09-21 22:51] VITALS: BP 127/71; PULSE 71; RESP 18; TEMP 36.8; O2SAT 98
[2021-09-22] MEDS: hyDROXYzine 25 mg Capsule 50 MG PO (03:27)
[2021-09-22 06:00] VITALS: BP 116/69; PULSE 70; RESP 16; TEMP 36.5; O2SAT 98
--- NOTE | 2021-09-22 07:47 | P.NPUDS_ITS ---
Diagnoses at Discharge Discharge Diagnosis (1) Benign prostatic hyperplasia: Status: Acute (2) Viral URI: Status: Acute (3) Other stimulant dependence, uncomplicated: Status: Acute (4) Auditory hallucination: Status: Acute (5) Suicidal ideation: Status: Acute (6) Cannabis dependence, uncomplicated: Status: Acute (7) Asthma: Status: Acute (8) COPD (chronic obstructive pulmonary disease): Status: Acute (9) Opioid dependence, in remission: Status: Acute (10) Nicotine dependence, cigarettes, uncomplicated: Status: Chronic (11) CHF (congestive heart failure): Status: Acute (12) Malingering: Status: Acute Reason for Visit Reason for Visit: Difficulty breathing, muscle aches Brief History: 56-year-old male presents emergency room complaining of difficulty with urination, slight dysuria.? States has not been able to void well since yesterday.? He also has had a little bit of a cough has been nonproductive he denies any diarrhea he has had some very mild myalgias no fever.? No recent change in medications.? No abdominal pain no flank pain.? Cough is been nonproductive.? He was tested for Covid 2 weeks ago and was negative, has not been vaccinated. MD complaint: has COVID symptoms COVID 19 common symptoms: positive cough, non-productive cough, dyspnea and fatigue; negative fever(s), chills, throat pain, nasal congestion, nausea, vomiting or diarrhea COVID 19 other sytmptoms: negative chest pain Treatment prior to arrival: none He was admitted to the neuropsychiatric unit for definitive treatment of those issues.? He presents today reporting that he came to the hospital secondary to some medical concerns but that recently has had some conflict with different individuals in his life and he was having difficulty getting his medication and started having suicidal thoughts and so he came to the hospital.? We discussed the importance of establishing outpatient services were effective for him and even looking at case management or other options to assist.? We reviewed the nature he had his medication and that we would have him speak with Dr. Almanza tomorrow and explore whether there is a need for any additional interventions or whether he would be safe to go.? An excerpt of his last visit included below for context and the fact that there have been no substantive changes. Hospital Course Hospital Course He slowly acclimated to the individual, group and milieu therapies provided. He was continued on his outpatient medications of Seroquel 600 mg nightly and Neurontin 800 mg 3 times a day. He did not display any unit activities and was in bed almost the entire hospital stay. He tolerated these doses and showed steady improvement during his stay. He was able to contract for safety outside hospital prior to discharge. During the hospitalization, patient had routine laboratory studies which were within normal limits except for few outliers. Additionally there was a general medical evaluation which was also within normal limits and revealed no new acute processes. Discharge Summary: At the time of discharge, lethality was denied and psychosis was resolving. Mood and anxiety were well managed. Patient endorsed a plan to follow-up with the aftercare recommendations of the treatment team. Patient was evaluated and deemed to be absent credible lethality, and had achieved the maximum benefit from an inpatient hospitalization, so was discharged. Involuntary Hold Information 96 Hour Hold: 96 Hour Involuntary Admission: No Mental Status Exam MSE Comments: This is a overweight possibly male with hospital scrubs on with limited grooming. He was in bed asleep but woke up easily. Good eye contact.? No abnormal movements. mild psychomotor retardation.? Cooperative with exam in no distress.? Speech was normal rate and volume.? Mood described as a little down and tired, affect congruent.? Thought process organized, thought content: Patient denied suicidal or homicidal ideation, there were no delusions reported or noted, he denied any auditory or visual hallucinations.? Attention and concentration were intact and memory appeared reliable but none were formally tested.? He is alert and oriented x3.? Insight and judgment are limited and impulse control is impaired. Cognition: Patient Appearance: Appropriate Level of Consciousness: Awake Patient Cognition Impaired: No Ability to Follow Directions: Excellent Patient Orientation (long list): Person, Place, Time, Name, Age and Birthday Comprehension Ability: No Impairment Hallucination Type: None Delusion Description: Not Present Thought Process: Appropriate and Logical Affect: Affect Description: Appropriate, [place] and Calm Behavior: Patient Behavior: Appropriate, Cooperative and Withdrawn Speech Pattern: Appropriate and Clear Discharge Data Studies Completed and Pending: Completed Studies During Hospitalization Category Date Time Status XR chest 1V tien ble [id number] Stat Exams 09/18/21 16:21 Completed Radiology Impressions Chest X-Ray 09/18/21 16:21 IMPRESSION: No acute finding. Laboratory Results WBC 5.7 10^3/uL (4.0- 10.0) 09/18/21 16:20 RBC 5.19 10^6/uL (4.1 -5.3) 09/18/21 16:20 Hgb 14.9 g/dL (11.7-1 6.6) 09/18/21 16:20 Hct 47.1 % (42.0-52.0 ) 09/18/21 16:20 MCV 90.8 fl (80-94) 09/18/21 16:20 MCH 28.7 pg (28.0-34. 0) 09/18/21 16:20 MCHC 31.6 g/dL (30.0-3 6.0) 09/18/21 16:20 RDW 14.8 % (12.1-15.1 ) 09/18/21 16:20 Plt Count 334 10^3/cmm (130 -400) 09/18/21 16:20 MPV 9.2 fL (7.4-10.4) 09/18/21 16:20 Neut % (Auto) 68.5 % 09/18/21 16:20 Lymph % (Auto) 19.6 % 09/18/21 16:20 [place] % (Auto) 7.1 % 09/18/21 16:20 Eos % (Auto) 3.5 % 09/18/21 16:20 Baso % (Auto) 1.1 % 09/18/21 16:20 Neut # (Auto) 3.88 10^3/uL (1.8 -7.7) 09/18/21 16:20 Lymph # (Auto) 1.1 10^3/uL (0.8- 4.8) 09/18/21 16:20 [place] # (Auto) 0.4 10^3/uL (0.2- 0.9) 09/18/21 16:20 Eos # (Auto) 0.2 10^3/uL (0.0- 0.8) 09/18/21 16:20 Baso # (Auto) 0.1 10^3/uL (0.0- 0.1) 09/18/21 16:20 Nucleated RBC % (a uto) 0 % 09/18/21 16:20 Nucleated RBCs # 0.0 /100WBC 09/18/21 16:20 Sodium 142 mmol/L (136-1 45) 03/08/22 16:20 Potassium 4.2 mmol/L (3.5-5 .1) 09/18/21 16:20 Chloride 102 mmol/L (98-10 7) 09/18/21 16:20 Carbon Dioxide 28 mmol/L (22-29) 09/18/21 16:20 Anion Gap 16.2 (5-19) 09/18/21 16:20 BUN 16 mg/dL (6-20) 09/18/21 16:20 Creatinine 0.9 mg/dL (0.7-1. 2) 09/18/21 16:20 GFR Calculation 87.3 mL/min (90-1 30) L 09/18/21 16:20 Glucose 121 mg/dL (65-115 ) H 09/18/21 16:20 Calculated Osmolal ity 296 mOsm/kg (285- 295) H 09/18/21 16:20 Calcium 9.5 mg/dL (8.5-10 .5) 09/18/21 16:20 Urine Color Yellow (Yellow) 09/18/21 17:45 Urine Appearance Clear (CLEAR) 09/18/21 17:45 Urine pH 5 (5-7) 09/18/21 17:45 Ur Specific Gravit y 1.025 (1.005-1.0 30) 09/18/21 17:45 Urine Protein Neg (Negative) 09/18/21 17:45 Urine Glucose (UA) Norm (Normal) 09/18/21 17:45 Urine Ketones Negative (Negati ve) 09/18/21 17:45 Urine Blood Neg (Negative) 09/18/21 17:45 Urine Nitrate Negative (Negati ve) 09/18/21 17:45 Urine Bilirubin Neg (Negative) 09/18/21 17:45 Urine Urobilinogen Neg mg/dL (Negati ve) 09/18/21 17:45 Ur Leukocyte Joaquina ase Negative (Negati ve) 09/18/21 17:45 Salicylates < 0.3 mg/dL (3-10 ) L 09/18/21 16:20 Urine Opiates Scre en Negative ng/mL (N egative) 09/18/21 17:45 Acetaminophen < 5.0 ug/mL (10-3 0) L 09/18/21 16:20 Ur Barbiturates Sc reen Negative ng/mL (N egative) 09/18/21 17:45 Ur Phencyclidine S crn Negative ng/mL (N egative) 09/18/21 17:45 Ur Amphetamines Sc reen Positive ng/mL (N egative) H 09/18/21 17:45 U Benzodiazepines Scrn Negative ng/mL (N egative) 09/18/21 17:45 Urine Cocaine Scre en Negative ng/mL (N egative) 09/18/21 17:45 U Marijuana (THC) Screen Positive ng/mL (N egative) H 09/18/21 17:45 Ethyl Alcohol < 10 mg/dL (0-10) 09/18/21 16:20 Coronavirus 229E ( PCR) Detected (NOT DE TECT) A 09/18/21 16:20 SARS-CoV-2 (PCR) Not detected (NO T DETECT) 09/18/21 16:20 Vitals: Last Vital Signs Temp 97.7 F 09/22/21 06:00 Pulse 70 09/22/21 06:00 Resp 16 09/22/21 06:00 BP 116/69 09/22/21 06:00 Pulse Ox 98 09/22/21 06:00 Discharge Plan Discharge Patient Disposition: Home Condition: Stable Prescriptions: New tamsulosin 0.4 mg capsule 0.4 mg PO DAILY Qty: 30 0RF Continued gabapentin 800 mg tablet 800 mg PO TID Qty: 90 1RF quetiapine 300 mg tablet 600 mg PO BEDTIME 30 Days Qty: 60 1RF multivitamin [Multiple Vitamins] Tablet 1 tab PO DAILY 0RF albuterol sulfate 90 mcg/actuation HFA aerosol inhaler 2 inh INHALATION Q6H PRN (Reason: shortness of breath or wheezing) Qty: 8 0RF ibuprofen 200 mg Tablet 600 mg PO Q6H PRN (Reason: Pain) 0RF Discharge Orders: Discharge Order (Routine); Ordered 09/22/21 Ordered By: Da Mccormack Referrals: [facility] [Other] (Needs to call and pay your bill and reastablish with a new doctor. ) Nell Trotter, PMHNP [Staff Physician] - 09/27/21 9:15 am (Appointment scheduled. ) Discharge Diet: Usual diet and Regular Discharge Activity: Increase activity as tolerated Patient Instructions: Opioid Safety Activity Restrictions/Additional Instructions: finance and administration manager will make arrangements for you to establish with a PCP. Discharge Attestations NPU Time Spent in Discharge Care*: less than 30 min Specific Discharge Activities: Specific discharge activities: educating patient, discussing with showcase maker/social workers/dc planners, documenting/other paperwork and evaluating patient/reviewing data Coding Level of Care Code Acute Chg FW DC note Diagnoses Benign prostatic hyperplasia N40.0 Viral URI J06.9 Other stimulant dependence, uncomplicated F15.20 Auditory hallucination R44.0 Suicidal ideation R45.851 Cannabis dependence, uncomplicated F12.20 Asthma J45.909 COPD (chronic obstructive pulmonary disease) J44.9 Opioid dependence, in remission F11.21 Nicotine dependence, cigarettes, uncomplicated F17.210 CHF (congestive heart failure) I50.9 Malingering Z76.5
[2021-09-22] MEDS: cetirizine 10 mg Tablet PO (08:18)
[2021-09-22] MEDS: multivitamin therapeutic Tablet 1 TAB PO (08:18)
[2021-09-22] MEDS: gabapentin 400 mg Capsule 800 MG PO ×2 (08:18→14:32)
[2021-09-22 08:30] VITALS: PULSE 87; RESP 16; O2SAT 96
[2021-09-22 08:47] VITALS: PULSE 87; RESP 16; O2SAT 96
--- NOTE | 2021-09-22 09:33 | PC.NURSE ---
Called made [place] medicaid [place] . [place] [id number]. 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
[2021-09-22 14:00] VITALS: BP 124/85; PULSE 215; RESP 20; TEMP 36.9; O2SAT 99
--- NOTE | 2021-09-22 16:52 | PC.NURSE ---
David Cortes 1965 OV# [id number] was given transportation to home address at [place] [address]. Mr Cortes waited the majority of the day waiting for Medicaid transportation from [place] [facility] that they were unable to find him a ride due to him being ambulatory. His transport needs to be billed to his hospital bill. He was transported by the [facility] ride service.
== END 2021-09-22 17:00 | disposition home or self-care (01) | DRG 880 ==
LOC: ER 18:38 → NP 19:26
PROVIDERS: Emergency Medicine; Admitting Provider Psychiatry & Neurology Psychiatry; Emergency Provider Family Medicine; Visit Provider Psychiatry & Neurology Psychiatry
DX: R45.851 Suicidal ideations (principal); F15.20 Other stimulant dependence, uncomplicated; R44.0 Auditory hallucinations; N40.0 Benign prostatic hyperplasia without lower urinary tract symptoms; J06.9 Acute upper respiratory infection, unspecified; F17.210 Nicotine dependence, cigarettes, uncomplicated; F12.20 Cannabis dependence, uncomplicated; F11.21 Opioid dependence, in remission; Z76.5 Malingerer [conscious simulation]; I50.9 Heart failure, unspecified; J44.9 Chronic obstructive pulmonary disease, unspecified; Z86.16 Personal history of COVID-19
CPT/HCPCS: 51798; 71045; 80048; 80306; 80307; 81003; 85025; 87635; 96360; 96361; 97150; 97165; 99285; J7030

== ENCOUNTER 2021-09-30 11:52 | Emergency (ER) | payer MEDICAID, SELFPAY ==
[2021-09-30 12:03] VITALS: BP 145/98; PULSE 76; RESP 16; TEMP 36.5; O2SAT 96; BMI 27.1
--- NOTE | 2021-09-30 12:12 | XRR_ITS ---
PROCEDURE INFORMATION: Exam: XR Chest Exam date and time: 09/30/2021 11:40 AM Age: 56 years old Clinical indication: Dyspnea TECHNIQUE: Imaging protocol: XR of the chest. Views: 1 view. COMPARISON: CR (CHEST, ) 09/18/2021 4:44 PM FINDINGS: Lungs: Unremarkable. No consolidation. Pleural spaces: Unremarkable. No pleural effusion. No pneumothorax. Heart/Mediastinum: Stable cardiomediastinal silhouette. Bones/joints: Surgical changes of the right shoulder joint noted. XR/XR chest 1V portable [id number] IMPRESSION: No evidence of active cardiopulmonary disease.
--- NOTE | 2021-09-30 12:12 | ECG_ITS ---
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 Measurements Intervals [place] Rate: 74 P: 65 CT: 172 QRS: 39 QRSD: 101 T: 41 QT: 403 QTc: 447 Interpretive Statements SINUS RHYTHM POSSIBLE LEFT ATRIAL ENLARGEMENT [-0.1mV P-WAVE IN V1/V2] POSSIBLE RIGHT VENTRICULAR CONDUCTION DELAY [RSR (QR) IN V1/V2] Compared to ECG 06/01/2021 21:06:38 Ventricular premature complex(es) no longer present Electronically Signed On 09-30-2021 17:29:28 CDT by Penny Mac M.D. [email or web address]
[2021-09-30 12:23] VITALS: O2SAT 98
[2021-09-30] MEDS: sodium chloride 0.9% 1,000 ML 999 ML IV (13:08)
[2021-09-30] MEDS: ketorolac 30 mg/mL INJ 15 MG IVP (13:09)
[2021-09-30] MEDS: ondansetron 2 mg/ML SDV 2 mL 4 MG IVP (13:10)
[2021-09-30 13:34] VITALS: BP 143/86; PULSE 82; RESP 20; O2SAT 98
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
[2021-09-30 13:39] LABS: Basophils # 0.1 10^3/uL (0.0-0.1); Basophils % 1.2 %; Eosinophils # 0.2 10^3/uL (0.0-0.8); Eosinophils % 2.1 %; Hematocrit 44.4 % (42.0-52.0); Hemoglobin 14.2 g/dL (11.7-16.6); Lymphocytes # 1.5 10^3/uL (0.8-4.8); Mean Corpuscular Hemoglobin 28.6 pg (28.0-34.0); Mean Corpuscular Volume 89.3 fl (80-94); Monocytes # 0.6 10^3/uL (0.2-0.9); Neutrophils # 5.27 10^3/uL (1.8-7.7); Neutrophils % 68.3 %; Nucleated Red Blood Cells % 0 %; Platelet Count 332 10^3/cmm (130-400); Red Blood Count 4.97 10^6/uL (4.1-5.3); Red Cell Distribution Width 14.5 % (12.1-15.1); White Blood Count 7.7 10^3/uL (4.0-10.0)
[2021-09-30 14:15] LABS: SARS Covid-2 Antigen Negative (Negative)
[2021-09-30 14:15] LABS: Alanine Aminotransferase 25 U/L (0-41); Albumin Level 4.3 g/dL (3.5-5.2); Alkaline Phosphatase 105 IU/L (40-130); Anion Gap 14.1 (5-19); Aspartate Amino Transferase 16 U/L (0-40); Blood Urea Nitrogen 15 mg/dL (6-20); Calcium 9.3 mg/dL (8.5-10.5); Carbon Dioxide 28 mmol/L (22-29); Chloride 100 mmol/L (98-107); Creatine Phosphokinase 226 U/L (39-308); Creatinine Clr Calc Pharmacy 120.8188; Globulin 2.5 g/dL (1.3-4.6); Glucose 80 mg/dL (65-115); Influenza A by IFA Negative (Negative); Influenza B by IFA Negative (Negative); Magnesium 2.2 mg/dL (1.7-2.3); Osmolality Calculated 286 mOsm/kg (285-295); Potassium 4.1 mmol/L (3.5-5.1); Sodium 138 mmol/L (136-145); Total Bilirubin 0.3 mg/dL (0.15-1.2); Total Protein 6.8 g/dL (6.6-8.7)
[2021-09-30 15:36] VITALS: BP 138/78; PULSE 78; RESP 18; O2SAT 97
== END 2021-09-30 15:37 | disposition home or self-care (01) ==
PROVIDERS: Emergency Provider Family Medicine
DX: J06.9 Acute upper respiratory infection, unspecified (principal); Z20.822 Contact with and (suspected) exposure to COVID-19; J44.9 Chronic obstructive pulmonary disease, unspecified; I50.9 Heart failure, unspecified; F17.210 Nicotine dependence, cigarettes, uncomplicated
CPT/HCPCS: 71045; 80053; 82550; 83735; 85025; 87426; 87804; 93005; 96361; 96374; 96375; 99283; J1885; J2405; J7030

== ENCOUNTER 2021-10-01 12:36 | Inpatient (IN) | payer MEDICAID, SELFPAY ==
[2021-10-01 12:44] VITALS: BP 135/96; PULSE 78; RESP 18; TEMP 36.8; O2SAT 95; BMI 27.1
--- NOTE | 2021-10-01 12:51 | XRR_ITS ---
PROCEDURE INFORMATION: Exam: XR Chest Exam date and time: 10/01/2021 11:57 AM Age: 56 years old Clinical indication: Other: Syncope TECHNIQUE: Imaging protocol: XR of the chest. Views: 1 view. COMPARISON: CR (CHEST, ) 09/30/2021 11:40 AM FINDINGS: Lungs: Unremarkable. No consolidation. Pleural spaces: Unremarkable. No pleural effusion. No pneumothorax. Heart/Mediastinum: Similar cardiomegaly. Bones/joints: Rotator cuff anchors noted in the right humeral head. Visualized osseous structures are intact. XR/XR chest 1V portable [id number] IMPRESSION: Stable exam, no acute findings.
--- NOTE | 2021-10-01 12:51 | ECG_ITS ---
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 Measurements Intervals [place] Rate: 70 P: 60 WV: 171 QRS: 32 QRSD: 97 T: 37 QT: 408 QTc: 443 Interpretive Statements SINUS RHYTHM POSSIBLE LEFT ATRIAL ENLARGEMENT [-0.1mV P-WAVE IN V1/V2] POSSIBLE RIGHT VENTRICULAR CONDUCTION DELAY [RSR (QR) IN V1/V2] Compared to ECG 09/30/2021 12:19:48 No significant changes Electronically Signed On 10-01-2021 20:25:15 CDT by Penny Mac M.D. [id number]
--- NOTE | 2021-10-01 12:52 | W.ED.PSYCHS ---
HPI - Psych General: Chief Complaint: Psychiatric Symptoms Stated Complaint: Panic attacks Time Seen by Provider: 10/01/21 12:47 History of Present Illness: Mr Cortes is a 56-year-old gentleman with complex past medical history including remote history of substance abuse, psychiatric disorder, COPD, CHF who presents emerged department due to anxiety and suicidal ideation. The patient has various concerns and at times seems to have difficulty articulating his exact concerns. He reports being out of his Seroquel for approximately 3 days and being unable to fill it, despite having prescription, until the end of the month due to money issues. This is caused him significant anxiety. He describes inability to sleep and his heart racing anytime he lays down. He describes waking up with panic feeling. Because of the symptoms he is now feels suicidal. He believes that he needs to be admitted to the distress unit. Intensity of symptoms is moderate. Course has been worsening. No other new medical concerns. No other specific changes in health, exacerbating, or alleviating factors identified. Onset (ago): day(s) Duration: getting worse Context: not taking psychiatric medications Associated symptoms: Reports depression and suicidal ideation Review of Systems General: Reports: 10 or more systems reviewed and unremarkable except in HPI and below Psych: Reports: depression and suicidal ideation PFSH ED PFSH: Medical History Asthma Cannabis dependence, uncomplicated CHF (congestive heart failure) COPD (chronic obstructive pulmonary disease) Other stimulant dependence, uncomplicated Psychiatric care Surgical History Status post club foot correction at Family History Mother Psychiatric illness Schizophrenia Social History Smoking and tobacco status: current every day smoker cigarettes Smoking risk assessment/counseling performed?: Yes Tobacco counseling given: counseling >3 minutes Alcohol intake: never Household members: other Details: roommate x 1 Physical Exam Const: COMMON NORMALS: alert GENERAL APPEARANCE: cooperative and well developed HENMT: COMMON NORMALS: normocephalic and atraumatic HEAD & SCALP: normocephalic and atraumatic Eye: COMMON NORMALS: conjunctivae normal CONJUNCTIVA: Yes conjunctivae normal SCLERA: sclerae normal Neck/C-Spine: COMMON NORMALS: supple GENERAL: Yes trachea midline Resp: COMMON NORMALS: normal respiratory effort and clear to auscultation bilaterally EFFORT & INSPECTION: Yes able to speak in complete sentences AUSCULTATION: clear to auscultation bilaterally Cardio: COMMON NORMALS: regular rate and regular rhythm RATE: regular rate RHYTHM: regular rhythm GI: COMMON NORMALS: Soft to palpation PALPATION: Yes Soft to palpation and No Tenderness to palpation present (GI) PERCUSSION: normal to percussion Extremity: GENERAL: Yes normal exam except as noted and No edema Neuro: COMMON NORMALS: moves all extremities SENSORIUM/ORIENTATION: Yes alert and No Orientation impaired Psych: COMMON NORMALS: mental status grossly normal and Normal thought process present THOUGHT PROCESS: Normal thought process present Course ED course: - Patient was seen and evaluated by me at bedside -Vital signs obtained - Initial evaluation notable for exam as above - Labs personally interpreted by me - Negative chest x-ray - Labs notable for no leukocytosis, normal hemoglobin. No acute mental derangement. BNP is elevated; No evidence of pulmonary edema or peripheral edema - Upon serial reexamination after treatment the patient was similar - Patient discussed with psychiatry service, patient to be admitted to the Neuropsych Unit - Based on ED evaluation at this point there is no obvious condition that would preclude the patient from inpatient management of psychiatric concerns. Note: Click bubbles or prepopulated miles in note writing are used for assistance with data collection and billing and are inherently more limited than narrative and other text portions of this note. Please use narrative for additional clinical history and defer to narrative/free test for any case of contradictory information. If information appears in only free text or click bubble it should be considered present or absent as reported. Please contact note technical report writer for clarifications of clinical information or contradictory information. MDM is a brief summary, contradictory or erroneous seeming information should be clarified and full note should be reviewed. Vital Signs: Vital signs: Vital Signs Temperature 97.8 F 10/02/21 12:26 Pulse Rate 81 10/02/21 12:26 Respiratory Rate 18 10/02/21 12:26 Blood Pressure 126/73 10/02/21 12:26 Pulse Oximetry 99 10/02/21 12:26 MDM - Psych Medical Decision Making 56-year-old gentleman presenting with suicidal ideation. Admitted to neuropsych unit for definitive management Medical Records I reviewed the patient's medical records. Lab Data I reviewed the patient's lab results. : 10/01/21 13:18 10/01/21 13:18 Radiology Impressions Chest X-Ray 10/01/21 12:51 IMPRESSION: Stable exam, no acute findings. Laboratory Results WBC 8.1 10^3/uL (4.0-10.0) 10/01/21 13:18 RBC 4.70 10^6/uL (4.1-5.3) 10/01/21 13:18 Hgb 13.4 g/dL (11.7-16.6) 10/01/21 13:18 Hct 41.3 % (42.0-52.0) L 10/01/21 13:18 MCV 87.9 fl (80-94) 10/01/21 13:18 MCH 28.5 pg (28.0-34.0) 10/01/21 13:18 MCHC 32.4 g/dL (30.0-36.0) 10/01/21 13:18 RDW 14.3 % (12.1-15.1) 10/01/21 13:18 Plt Count 311 10^3/cmm (130-400) 10/01/21 13:18 MPV 8.6 fL (7.4-10.4) 10/01/21 13:18 Neut % (Auto) 69.4 % 10/01/21 13:18 Lymph % (Auto) 19.7 % 10/01/21 13:18 [place] % (Auto) 7.7 % 10/01/21 13:18 Eos % (Auto) 1.8 % 10/01/21 13:18 Baso % (Auto) 1.0 % 10/01/21 13:18 Neut # (Auto) 5.65 10^3/uL (1.8-7.7) 10/01/21 13:18 Lymph # (Auto) 1.6 10^3/uL (0.8-4.8) 10/01/21 13:18 [place] # (Auto) 0.6 10^3/uL (0.2-0.9) 10/01/21 13:18 Eos # (Auto) 0.2 10^3/uL (0.0-0.8) 10/01/21 13:18 Baso # (Auto) 0.1 10^3/uL (0.0-0.1) 10/01/21 13:18 Nucleated RBC % (auto) 0 % 10/01/21 13:18 Nucleated RBCs # 0.0 /100WBC 10/01/21 13:18 Sodium 137 mmol/L (136-145) 10/01/21 13:18 Potassium 4.0 mmol/L (3.5-5.1) 10/01/21 13:18 Chloride 102 mmol/L (98-107) 10/01/21 13:18 Carbon Dioxide 26 mmol/L (22-29) 10/01/21 13:18 Anion Gap 13.0 (5-19) 10/01/21 13:18 BUN 15 mg/dL (6-20) 10/01/21 13:18 Creatinine 0.8 mg/dL (0.7-1.2) 10/01/21 13:18 GFR Calculation 100.0 mL/min (90-130) 10/01/21 13:18 Glucose 108 mg/dL (65-115) 10/01/21 13:18 Calculated Osmolality 285 mOsm/kg (285-295) 10/01/21 13:18 Calcium 9.0 mg/dL (8.5-10.5) 10/01/21 13:18 Total Bilirubin 0.2 mg/dL (0.15-1.2) 10/01/21 13:18 AST 17 U/L (0-40) 10/01/21 13:18 ALT 33 U/L (0-41) 10/01/21 13:18 Alkaline Phosphatase 99 IU/L (40-130) 10/01/21 13:18 NT-Pro-B Natriuret Pep 2197 pg/mL (0-125) H 10/01/21 13:18 Total Protein 6.5 g/dL (6.6-8.7) L 10/01/21 13:18 Albumin 4.2 g/dL (3.5-5.2) 10/01/21 13:18 Globulin 2.3 g/dL (1.3-4.6) 10/01/21 13:18 TSH 1.33 uIU/mL (0.27-4.20) 10/01/21 13:18 Urine Color Yellow (Yellow) 10/01/21 14:30 Urine Appearance Clear (CLEAR) 10/01/21 14:30 Urine pH 5 (5-7) 10/01/21 14:30 Ur Specific Zoe 1.025 (1.005-1.030) 10/01/21 14:30 Urine Protein Neg (Negative) 10/01/21 14:30 Urine Glucose (UA) Norm (Normal) 10/01/21 14:30 Urine Ketones Negative (Negative) 10/01/21 14:30 Urine Blood Neg (Negative) 10/01/21 14:30 Urine Nitrate Negative (Negative) 10/01/21 14:30 Urine Bilirubin Neg (Negative) 10/01/21 14:30 Urine Urobilinogen Norm mg/dL (Negative) 10/01/21 14:30 Ur Leukocyte Esterase Negative (Negative) 10/01/21 14:30 Salicylates 0.5 mg/dL (3-10) L 10/01/21 13:18 Urine Opiates Screen Negative ng/mL (Negative) 10/01/21 14:30 Acetaminophen < 5.0 ug/mL (10-30) L 10/01/21 13:18 Ur Barbiturates Screen Negative ng/mL (Negative) 10/01/21 14:30 Ur Phencyclidine Scrn Negative ng/mL (Negative) 10/01/21 14:30 Ur Amphetamines Screen Negative ng/mL (Negative) 10/01/21 14:30 U Benzodiazepines Scrn Negative ng/mL (Negative) 10/01/21 14:30 Urine Cocaine Screen Negative ng/mL (Negative) 10/01/21 14:30 U Marijuana (THC) Screen Positive ng/mL (Negative) H 10/01/21 14:30 Ethyl Alcohol < 10 mg/dL (0-10) 10/01/21 13:18 EKG Data EKG 1: I personally reviewed and interpreted this EKG as follows: EKG interpretation date: 10/01/21 EKG interpretation time: 13:31 Interpretation: Twelve-lead EKG shows a regular rhythm at a rate of 70. MD interval 171, QRS duration 97, QTc 429. Normal axis. Interpretation: Sinus rhythm. Discharge Plan Discharge Patient Disposition: Admitted As Inpatient Admit Provider: Da Mccormack Clinical Impression: Suicidal ideation Condition: Stable Discharge Diet: Regular Discharge Activity: Resume usual activity Coding Level of Care Code ED Fire Inspector for Chg Fwd Exam Comprehensive
[2021-10-01 13:30] LABS: Basophils # 0.1 10^3/uL (0.0-0.1); Eosinophils # 0.2 10^3/uL (0.0-0.8); Eosinophils % 1.8 %; Hematocrit 41.3 % (42.0-52.0); Hemoglobin 13.4 g/dL (11.7-16.6); Lymphocytes # 1.6 10^3/uL (0.8-4.8); Lymphocytes % 19.7 %; Mean Corpuscular HGB Conc 32.4 g/dL (30.0-36.0); Mean Corpuscular Hemoglobin 28.5 pg (28.0-34.0); Mean Corpuscular Volume 87.9 fl (80-94); Mean Platelet Volume 8.6 fL (7.4-10.4); Monocytes # 0.6 10^3/uL (0.2-0.9); Monocytes % 7.7 %; Neutrophils # 5.65 10^3/uL (1.8-7.7); Neutrophils % 69.4 %; Nucleated Red Blood Cells % 0 %; Platelet Count 311 10^3/cmm (130-400); Red Cell Distribution Width 14.3 % (12.1-15.1); White Blood Count 8.1 10^3/uL (4.0-10.0)
[2021-10-01 14:16] LABS: Alanine Aminotransferase 33 U/L (0-41); Albumin Level 4.2 g/dL (3.5-5.2); Alkaline Phosphatase 99 IU/L (40-130); Aspartate Amino Transferase 17 U/L (0-40); Blood Urea Nitrogen 15 mg/dL (6-20); Carbon Dioxide 26 mmol/L (22-29); Chloride 102 mmol/L (98-107); Creatinine Clr Calc Pharmacy 120.8188; Globulin 2.3 g/dL (1.3-4.6); Glucose 108 mg/dL (65-115); NT Pro B Type Natriuretic Pept 2197 pg/mL (0-125); Osmolality Calculated 285 mOsm/kg (285-295); Salicylate 0.5 mg/dL (3-10); Sodium 137 mmol/L (136-145); Thyroid Stimulating Hormone 1.33 uIU/mL (0.27-4.20); Total Bilirubin 0.2 mg/dL (0.15-1.2); Total Protein 6.5 g/dL (6.6-8.7)
[2021-10-01 14:25] VITALS: BP 123/80; BP 131/90; BP 142/89; PULSE 74; PULSE 80; PULSE 84
[2021-10-01 14:34] LABS: Acetaminophen < 5.0 ug/mL (10-30); Alcohol Level < 10 mg/dL (0-10)
[2021-10-01 14:44] LABS: Add Urine Microscopic? NO; Charge for UA Resulting for Rev
[2021-10-01 15:07] LABS: Bilirubin Urine Neg (Negative); Blood Urine Neg (Negative); Glucose Urine UA Norm (Normal); Ketones Urine Negative (Negative); Leukocyte Esterase Urine Negative (Negative); Nitrate Urine Negative (Negative); Protein Urine Neg (Negative); Specific Gravity, Urine 1.025 (1.005-1.030); Urine Appearance Clear (CLEAR); Urine Color Yellow (Yellow); Urobilinogen Urine Norm (Negative); pH Urine 5 (5-7)
[2021-10-01 15:13] LABS: Amphetamines Screen Urine Negative (Negative); Barbiturates Screen Urine Negative (Negative); Benzodiazepines Screen Urine Negative (Negative); Cocaine Screen Urine Negative (Negative); Opiate Screen Urine Negative (Negative); PCP Screen Urine Negative (Negative); THC Screen Urine Positive (Negative)
--- NOTE | 2021-10-01 16:42 | PC.NURSE ---
Report called to NPU
[2021-10-01 16:45] VITALS: BP 127/74; PULSE 66; RESP 18; O2SAT 94
[2021-10-01 21:21] VITALS: BP 136/80; PULSE 79; RESP 20; TEMP 37.1; O2SAT 97
[2021-10-01] MEDS: quetiapine 300 mg Tablet 600 MG PO (21:25)
[2021-10-01] MEDS: gabapentin 400 mg Capsule 800 MG PO (21:25)
--- NOTE | 2021-10-02 03:08 | PC.ADMIT ---
Admission Note: 24-year-old female who states she has chronic depression since age 15. She states that she is also had complicated depression and has a 2-year-old and a 6-month-old. States she has been having increasing depression of late has not been taking her meds she states she has an outpatient appointment but feels like she needs to talk to someone now. She is not actively suicidal denies any thoughts of suicide average states that she has been more depressed. Denies any worsening proving factors. Associated symptoms: Reports depression The patient,David Cortes,56 y/o, was given written information regarding hospital policies, unit procedures and contact persons. Patient's smoking status: current every day smoker. Vital Signs - 8 hr 10/01/21 21:21 Temperature 98.7 F Pulse Rate 79 Respiratory Rate 20 H Blood Pressure 136/80 Pulse Oximetry 97
--- NOTE | 2021-10-02 03:09 | PC.ADMIT ---
Admission Note:Mr Cortes is a 56-year-old gentleman with complex past medical history including remote history of substance abuse, psychiatric disorder, COPD, CHF who presents emerged department due to anxiety and suicidal ideation. The patient has various concerns and at times seems to have difficulty articulating his exact concerns. He reports being out of his Seroquel for approximately 3 days and being unable to fill it, despite having prescription, until the end of the month due to money issues. This is caused him significant anxiety. He describes inability to sleep and his heart racing anytime he lays down. He describes waking up with panic feeling. Because of the symptoms he is now feels suicidal. He believes that he needs to be admitted to the distress unit. Intensity of symptoms is moderate. Course has been worsening. No other new medical concerns. No other specific changes in health, exacerbating, or alleviating factors identified. Onset (ago): day(s) The patient,David Cortes,56 y/o, was given written information regarding hospital policies, unit procedures and contact persons. Patient's smoking status: current every day smoker. Vital Signs - 8 hr 10/01/21 21:21 Temperature 98.7 F Pulse Rate 79 Respiratory Rate 20 H Blood Pressure 136/80 Pulse Oximetry 97
[2021-10-02 06:00] VITALS: BP 126/73; PULSE 81; RESP 18; TEMP 36.6; O2SAT 99
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
[2021-10-02] MEDS: tamsulosin 0.4 mg Capsule PO (07:55)
[2021-10-02] MEDS: ascorbic acid 500 mg Tablet PO (07:55)
[2021-10-02] MEDS: multivitamin therapeutic Tablet 1 TAB PO (07:55)
[2021-10-02] MEDS: gabapentin 400 mg Capsule 800 MG PO ×2 (07:56→14:03)
[2021-10-02] MEDS: aspirin 81 mg EC Tablet PO (07:56)
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
[2021-10-02 12:26] VITALS: BP 126/73; PULSE 81; RESP 18; TEMP 36.6; O2SAT 99
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
== END 2021-10-02 14:45 | disposition home or self-care (01) | DRG 880 ==
LOC: ER 16:30 → NP 16:38
PROVIDERS: Admitting Provider Psychiatry & Neurology Psychiatry; Emergency Provider Emergency Medicine; Visit Provider Psychiatry & Neurology Psychiatry
DX: R45.851 Suicidal ideations (principal); F15.20 Other stimulant dependence, uncomplicated; F11.21 Opioid dependence, in remission; F12.20 Cannabis dependence, uncomplicated; F17.210 Nicotine dependence, cigarettes, uncomplicated
CPT/HCPCS: 71045; 80053; 80306; 80307; 81003; 83880; 84443; 85025; 93005; 97150; 97165; 99285

== ENCOUNTER → 2021-10-22 13:35 | Outpatient (BNVA) | payer MEDICAID, SELFPAY | PROVIDERS: Visit Provider Nurse Practitioner | DX: F20.89 Other schizophrenia (principal); F15.20 Other stimulant dependence, uncomplicated; F12.20 Cannabis dependence, uncomplicated; F11.21 Opioid dependence, in remission; F17.210 Nicotine dependence, cigarettes, uncomplicated; Z79.899 Other long term (current) drug therapy | CPT/HCPCS: 99214 ==

== ENCOUNTER → 2021-10-23 09:41 | Outpatient (BNVA) | payer MEDICAID, SELFPAY | PROVIDERS: Visit Provider Nurse Practitioner | DX: Z79.899 Other long term (current) drug therapy (principal) | CPT/HCPCS: 80061; 83036 ==

== ENCOUNTER → 2021-12-24 12:56 | Outpatient (BNVA) | payer MEDICAID, SELFPAY | PROVIDERS: Visit Provider Nurse Practitioner | DX: F20.89 Other schizophrenia (principal); F17.210 Nicotine dependence, cigarettes, uncomplicated; F15.20 Other stimulant dependence, uncomplicated; F12.20 Cannabis dependence, uncomplicated | CPT/HCPCS: 99214 ==

== ENCOUNTER 2021-12-27 13:18 | Emergency (ER) | payer MEDICAID, SELFPAY ==
[2021-12-27 13:22] VITALS: BP 137/72; PULSE 79; RESP 22; TEMP 36.9; O2SAT 98; BMI 31.1
--- NOTE | 2021-12-27 13:30 | PC.NURSE ---
Pt placed on bedside surveillance system monitor, shows sinus rhythm
--- NOTE | 2021-12-27 13:32 | ECG_ITS ---
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 Measurements Intervals [place] Rate: 73 P: 52 CA: 160 QRS: 33 QRSD: 103 T: 43 QT: 412 QTc: 457 Interpretive Statements SINUS RHYTHM POSSIBLE LEFT ATRIAL ENLARGEMENT [-0.1mV P-WAVE IN V1/V2] Compared to ECG 10/01/2021 13:28:28 No significant changes Electronically Signed On 12-28-2021 6:01:38 CDT by Penny Mac M.D. [id number]
--- NOTE | 2021-12-27 13:36 | ED_ITS ---
HPI - Chest Pain General: Chief Complaint: Chest Pain Stated Complaint: Chest pain, sob Time Seen by Provider: 12/27/21 13:29 History of Present Illness: 56-year-old male seen in by correction due to abnormal potassium. Patient had a potassium checked at the correction it was 6.6. Patient's not having any symptoms. He was not sure exactly why he was sent in. Patient is not having chest pain, shortness of breath, nausea vomiting fever or chills. Patient does have a history of MS. Associated symptoms: Deny abdominal pain, dyspnea, fever(s), nausea, palpitations or vomiting Review of Systems Const: Denies: fever(s) or chills Eyes: Denies: change in vision or blurry vision Card: Denies: chest pain or palpitations Resp: Denies: dyspnea or productive cough GI: Denies: abdominal pain, nausea or vomiting : Denies: flank pain Neuro: Denies: headache(s) or sensory changes Psych: Denies: anxiety or depression PFS ED PFSH: Medical History (Updated 10/23/21 @ 00:01 by ) Asthma Cannabis dependence, uncomplicated CHF (congestive heart failure) COPD (chronic obstructive pulmonary disease) On combination antipsychotic drug therapy Other stimulant dependence, uncomplicated Psychiatric care Surgical History Status post club foot correction at Family History Mother Psychiatric illness Schizophrenia Social History Smoking and tobacco status: current every day smoker cigarettes Smoking risk assessment/counseling performed?: Yes Tobacco counseling given: counseling >3 minutes Alcohol intake: never Household members: other Details: roommate x 1 Physical Exam Const: COMMON NORMALS: no acute distress, patient oriented x3 and no limitations Resp: COMMON NORMALS: normal respiratory effort, No retractions and No use of accessory muscles EFFORT & INSPECTION: Yes able to speak in complete sentences Cardio: COMMON NORMALS: regular rate and regular rhythm RATE: regular rate RHYTHM: regular rhythm GI: COMMON NORMALS: Soft to palpation and non-tender PALPATION: Yes Soft to palpation : OTHER: Chronic Dykes with leg bag with clear urine Neuro: COMMON NORMALS: patient oriented x3 Psych: COMMON NORMALS: mental status grossly normal, Normal thought process present, cooperative and normal affect THOUGHT PROCESS: Normal thought process present Skin: COMMON NORMALS: no rashes or lesions noted GENERAL SKIN EXAM: no rashes or lesions noted Course Vital Signs: Vital signs: Vital Signs Temperature 98.4 F 12/27/21 13:22 Pulse Rate 79 12/27/21 13:22 Respiratory Rate 22 H 12/27/21 13:22 Blood Pressure 137/72 12/27/21 13:22 Pulse Oximetry 98 12/27/21 13:22 Discharge Plan Discharge Condition: Stable Prescriptions: No Action quetiapine 300 mg tablet 600 mg PO BEDTIME 30 Days Qty: 60 1RF gabapentin 800 mg tablet 800 mg PO TID 30 Days Qty: 90 1RF multivitamin [Multiple Vitamins] Tablet 1 tab PO DAILY 0RF tamsulosin 0.4 mg capsule 0.4 mg PO DAILY Qty: 60 0RF ibuprofen 600 mg tablet 600 mg PO Q8H PRN (Reason: pain) Qty: 30 0RF aspirin 81 mg Tablet,Delayed Release (Dr/Ec) 81 mg PO QAM 0RF Vitamin C 500 mg Tablet 500 mg PO QAM 0RF albuterol sulfate 90 mcg/actuation HFA aerosol inhaler 2 puff inhalation Q6H PRN (Reason: shortness of breath or wheezing) 0RF Coding Level of Care Code ED Professor Of Religion for Panchito Cooper
[2021-12-27 13:42] LABS: Basophils # 0.1 10^3/uL (0.0-0.1); Eosinophils # 0.2 10^3/uL (0.0-0.8); Eosinophils % 2.6 %; Hematocrit 41.6 % (42.0-52.0); Lymphocytes # 1.9 10^3/uL (0.8-4.8); Lymphocytes % 30.4 %; Mean Corpuscular HGB Conc 33.7 g/dL (30.0-36.0); Mean Corpuscular Hemoglobin 29.4 pg (28.0-34.0); Mean Corpuscular Volume 87.2 fl (80-94); Mean Platelet Volume 8.7 fL (7.4-10.4); Monocytes # 0.6 10^3/uL (0.2-0.9); Monocytes % 9.2 %; Neutrophils # 3.49 10^3/uL (1.8-7.7); Neutrophils % 56.5 %; Nucleated Red Blood Cells % 0 %; Platelet Count 302 10^3/cmm (130-400); Red Blood Count 4.77 10^6/uL (4.1-5.3); Red Cell Distribution Width 14.5 % (12.1-15.1); White Blood Count 6.2 10^3/uL (4.0-10.0)
--- NOTE | 2021-12-27 14:08 | ECG_ITS ---
[facility] Test Date: 2021-12-27 Pat Name: David Cortes Department: Room: Gender: Male Patient Relations Liaison: : 1965 Requested By: Venkata Ordaz Order Number: [id number] Mahesh MD: Penny Mac M.D. Measurements Intervals [place] Rate: 68 P: 56 CA: 160 QRS: 38 QRSD: 106 T: 37 QT: 434 QTc: 463 Interpretive Statements SINUS RHYTHM Compared to ECG 12/27/2021 12:52:12 No significant changes Electronically Signed On 12-28-2021 5:47:28 CDT by Penny Mac M.D. [id number]
--- NOTE | 2021-12-27 14:08 | XR_ITS ---
WS: [id number] Portable AP upright chest, 12/27/2021 Clinical Data: chest pain Comparison: Portable chest, 10/01/2021. Findings: No nodules, masses or effusions are seen. The heart is enlarged. The pulmonary vascularity is not increased. No pneumonia or pneumothorax is seen. There are monitor leads on the chest wall. Th ere is an orthopedic anchor in the right humeral head. XR/XR chest 1V portable [id number] Impression: Cardiomegaly.
--- NOTE | 2021-12-27 14:09 | XR_ITS ---
WS: [email or web address] Right shoulder, 3 views, 12/27/2021 Clinical Data: shoulder pain Comparison: Right shoulder, 03/18/2021. Findings: No fractures or dislocations are seen. The AC joint is widened which may be from surgery or injury. T he adjacent right clavicle, right scapula and ribs are normal. The soft tissues are unremarkable. There are orthopedic anchors in the right humeral head. There is a monitor lead overlying the right s houlder. XR/XR shoulder RT min 2V* [id number] Impression: Widening of the right AC joint.
--- NOTE | 2021-12-27 14:09 | XR_ITS ---
WS: [email or web address] Left shoulder, 3 views, 12/27/2021 Clinical Data: shoulder pain Comparison: Left shoulder, 08/01/2017. Findings: No fractures or dislocations are seen. 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 The adjacent left clavicl e, left scapula and ribs are normal. The soft tissues are unremarkable. There is a monitor lead on the left arm. There is a radiopaque clip in the proximal lateral subcutane ous tissue of the arm. XR/XR shoulder LT min 2V* [id number] Impression: Negative left shoulder.
--- NOTE | 2021-12-27 14:15 | ED_ITS ---
HPI - General Adult General: Chief complaint: Chest Pain Stated complaint: Chest pain, sob Time Seen by Provider: 12/27/21 13:29 History of Present Illness: Patient is a 56-year-old male with a history of anxiety, CHF, COPD who presents emergency room with multiple complaints includin g headache, chest pressure and left-sided shoulder pain. Patient tells me that this left-sided shoulder pain started hurting 2 days ago when he he was repairing a roof. Patient report hitting his left shoulder on the side of the road. Patient denies any fall. Shortly after, patient reports shortness of breath chest pressure and migraine headache. Patient tells me that he has had similar symptoms few months ago was previously seen in the emergency room for similar events. During these episodes of chest pressure, patient tells me that he is unable to get a breath in and feels anxious about it. Patient also reports mild migraine with the chest pressure headache. Patient says that each episode lasting for only 3 seconds at a time. Patient denies any stabbing pain or pleuritic pain. Patient denies pain in the chest radiates towards the back. Patient denies any focal neurological deficits. Patient would like to get all these things checked out today. Patient reports smoking, marijuana use and occasional meth use. Patient denies any IV drug use. Patient denies any abdominal pain, nausea/vomiting, diarrhea melena/hematochezia, or complaints at this time. Onset: 2 days ago Duration:2 days Location:home Severity:moderate Associated symptoms: Reports chest pain; Deny dyspnea, nausea, rash, palpitations or vomiting Review of Systems Const: Denies: fever(s) or chills Eyes: Denies: change in vision ENMT: Denies: mouth pain Card: Reports: chest pain and other (dyspnea); Denies: palpitations Resp: Denies: dyspnea or non-productive cough GI: Denies: abdominal pain, nausea, vomiting or diarrhea : Denies: dysuria Musc: Reports: extremity pain (+moderate L sided shoulder pain, mild R sided shoulder pain) Skin/Breast: Denies: rash or new lesions Neuro: Reports: other (+headache); Denies: weakness in extremities Psych: Reports: other (Normal mood) Tab/Lymph: Denies: easy bruising PFS ED PFSH: Medical History Asthma Cannabis dependence, uncomplicated CHF (congestive heart failure) COPD (chronic obstructive pulmonary disease) On combination antipsychotic drug therapy Other stimulant dependence, uncomplicated Psychiatric care Surgical History Status post club foot correction at Family History Mother Psychiatric illness Schizophrenia Social History Smoking and tobacco status: current every day smoker cigarettes Smoking risk assessment/counseling performed?: Yes Tobacco counseling given: counseling >3 minutes Alcohol intake: never Household members: other Details: roommate x 1 Physical Exam Const: COMMON NORMALS: alert HENMT: COMMON NORMALS: atraumatic HEAD & SCALP: atraumatic MOUTH: moist mucous membranes not abnormal Eye: COMMON NORMALS: EOMs intact bilaterally and conjunctivae normal CONJUNCTIVA: Yes conjunctivae normal Neck/C-Spine: COMMON NORMALS: full ROM and supple Resp: COMMON NORMALS: normal respiratory effort and clear to auscultation bilaterally AUSCULTATION: clear to auscultation bilaterally Cardio: COMMON NORMALS: regular rate RATE: regular rate OTHER: 2+ radial pulses GI: COMMON NORMALS: Soft to palpation and non-tender PALPATION: Yes Soft to palpation Extremity: COMMON NORMALS: full ROM NARRATIVE EXTREMITY EXAM: Full range of motion of bilateral shoulder, no obvious signs of trauma or injury, no focal tenderness palpation in the upper extremity, neurovascular exam intact, sensation intact in the upper extremity Neuro: SENSORIUM/ORIENTATION: Yes alert MOTOR EXAM: No Abnormal motor strength present and Other motor observations present (no focal motor deficits) Psych: COMMON NORMALS: speech normal SPEECH: Yes normal speech MOOD & AFFECT: Yes euthymic mood Course Vital Signs: Vital signs: Vital Signs Temperature 98.4 F 12/27/21 13:22 Pulse Rate 76 12/27/21 17:51 Respiratory Rate 16 12/27/21 17:51 Blood Pressure 146/90 12/27/21 16:11 Pulse Oximetry 98 12/27/21 17:51 [facility] - General Adult Medical Decision Making Patient is a 56-year-old male history anxiety, COPD, CHF who presents the emergency room for multiple complaints including headache, chest pressure, and left-sided shoulder pain x2 days. On physical exam, patient has full range of motion of the shoulders bilaterally. No focal tenderness palpation of the upper extremities, neurovascular exam intact in the upper extremity. 2+ radial pulses bilaterally. He has no complaints of chest pressure currently or while observed in the emergency room. Troponin x2 with delta less than 5. EKG is nonischemic. D- dimer appears to be within normal limit. Doubt ACS/PE or other emergent causes of chest pain. I do not suspect that this is ACS since patient has no active chest pain, due to negative troponin, EKG is nonischemic and has no anginal equivalent symptoms. No suspicion for aortic dissection given no widened mediastinum, 2+ upper extremity pulses, or tearing pain. No suspicion for PE given no pleuritic chest pain, recent immobilization or surgery hemoptysis, or other VTE risk factors. EKG is non-ischemic. XR normal. Patient request for breathing treatment, and he received a breathing treatment. The right shoulder showed mild AC tear. Patient has no complaints of right-sided shoulder pain. This was discussed with patient. Patient complains of left-sided shoulder pain. The x-ray of her left shoulder is negative. Given patient follow-up with primary care provider for repeat x-ray in 1 week should patient have any symptoms of shoulder pain on the left side at that time. Rx: tylenol PRN pain Disposition: Discharge. Patient counseled regarding diagnostic impression, treatment plan. Patient given ED strict return precautions to return for continuation, worsening, or development of new symptoms. Instructed to f/u w/ PCP regarding symptoms today. Patient verbalized understanding. Lab Data : 12/27/21 13:35 12/27/21 13:35 Radiology Impressions Chest X-Ray 12/27/21 14:08 Impression: Cardiomegaly. Shoulder X-Ray 12/27/21 14:09 Impression: Widening of the right AC joint. Laboratory Results WBC 6.2 10^3/uL (4.0-10.0) 12/27/21 13:35 RBC 4.77 10^6/uL (4.1-5.3) 12/27/21 13:35 Hgb 14.0 g/dL (11.7-16.6) 12/27/21 13:35 Hct 41.6 % (42.0-52.0) L 12/27/21 13:35 MCV 87.2 fl (80-94) 12/27/21 13:35 MCH 29.4 pg (28.0-34.0) 12/27/21 13:35 MCHC 33.7 g/dL (30.0-36.0) 12/27/21 13:35 RDW 14.5 % (12.1-15.1) 12/27/21 13:35 Plt Count 302 10^3/cmm (130-400) 12/27/21 13:35 MPV 8.7 fL (7.4-10.4) 12/27/21 13:35 Neut % (Auto) 56.5 % 12/27/21 13:35 Lymph % (Auto) 30.4 % 12/27/21 13:35 [place] % (Auto) 9.2 % 12/27/21 13:35 Eos % (Auto) 2.6 % 12/27/21 13:35 Baso % (Auto) 1.0 % 12/27/21 13:35 Neut # (Auto) 3.49 10^3/uL (1.8-7.7) 12/27/21 13:35 Lymph # (Auto) 1.9 10^3/uL (0.8-4.8) 12/27/21 13:35 [place] # (Auto) 0.6 10^3/uL (0.2-0.9) 12/27/21 13:35 Eos # (Auto) 0.2 10^3/uL (0.0-0.8) 12/27/21 13:35 Baso # (Auto) 0.1 10^3/uL (0.0-0.1) 12/27/21 13:35 Nucleated RBC % (auto) 0 % 12/27/21 13:35 Nucleated RBCs # 0.0 /100WBC 12/27/21 13:35 D-Dimer 0.52 ug/mIFEU (0-0.59) 12/27/21 13:35 Sodium 140 mmol/L (136-145) 12/27/21 13:35 Potassium 4.0 mmol/L (3.5-5.1) 12/27/21 13:35 Chloride 102 mmol/L (98-107) 12/27/21 13:35 Carbon Dioxide 29 mmol/L (22-29) 12/27/21 13:35 Anion Gap 13.0 (5-19) 12/27/21 13:35 BUN 18 mg/dL (6-20) 12/27/21 13:35 Creatinine 1.0 mg/dL (0.7-1.2) 12/27/21 13:35 GFR Calculation 77.3 mL/min (90-130) L 12/27/21 13:35 Glucose 109 mg/dL (65-115) 12/27/21 13:35 Calculated Osmolality 292 mOsm/kg (285-295) 12/27/21 13:35 Calcium 9.1 mg/dL (8.5-10.5) 12/27/21 13:35 Magnesium 2.0 mg/dL (1.7-2.3) 12/27/21 13:35 Total Bilirubin 0.3 mg/dL (0.15-1.2) 12/27/21 13:35 AST 12 U/L (0-40) 12/27/21 13:35 ALT 14 U/L (0-41) 12/27/21 13:35 Alkaline Phosphatase 110 IU/L (40-130) 12/27/21 13:35 Troponin T Baseline 21 ng/L (0-15) H 12/27/21 13:35 Troponin T 120 Minute 20.59 ng/L (0-15) H 12/27/21 15:30 Delta Troponin T -0.41 ABS# (0-10) L 12/27/21 15:30 Total Protein 7.1 g/dL (6.6-8.7) 12/27/21 13:35 Albumin 4.2 g/dL (3.5-5.2) 12/27/21 13:35 Globulin 2.9 g/dL (1.3-4.6) 12/27/21 13:35 Urine Color Yellow (Yellow) 12/27/21 16:10 Urine Appearance Clear (CLEAR) 12/27/21 16:10 Urine pH 6 (5-7) 12/27/21 16:10 Ur Specific [place] 1.010 (1.005-1.030) 12/27/21 16:10 Urine Protein Neg (Negative) 12/27/21 16:10 Urine Glucose (UA) Norm (Normal) 12/27/21 16:10 Urine Ketones Negative (Negative) 12/27/21 16:10 Urine Blood Neg (Negative) 12/27/21 16:10 Urine Nitrate Negative (Negative) 12/27/21 16:10 Urine Bilirubin Neg (Negative) 12/27/21 16:10 Urine Urobilinogen Norm mg/dL (Negative) 12/27/21 16:10 Ur Leukocyte Esterase Negative (Negative) 12/27/21 16:10 Imaging Data Other Imaging: Radiologist's impression: [address] [address] XRay Report Signed Patient: David Cortes Unit #: [id number] : 1965 Age/Sex: 56 / M ADM Date: 12/27/21 Loc: ER Room/Bed: Attending Dr: Ordering Provider/Ordering MD: Venkata Ordaz MD Date of Service: 12/27/21 Procedure(s): XR shoulder RT min 2V* 58074 Accession Number(s): [id number] Report Number: [id number] WS: [email or web address] Right shoulder, 3 views, 12/27/2021 Clinical Data: shoulder pain Comparison: Right shoulder, 03/18/2021. Findings: No fractures or dislocations are seen. The AC joint is widened which may be from surgery or injury. The adjacent right clavicle, right scapula and ribs are normal. The soft tissues are unremarkable. There are orthopedic anchors in the right humeral head. There is a monitor lead overlying the right shoulder. XR/XR shoulder RT min 2V* 72106 Impression: Widening of the right AC joint. ? Dictated By: Dori Martin MD Signed By: Dori Martin MD Signed Date/Time: 12/27/211434 DD/ [address] [address] XRay Report Signed Patient: David Cortes Unit #: [id number] : 1965 Age/Sex: 56 / M ADM Date: 12/27/21 Loc: ER Room/Bed: Attending Dr: Ordering Provider/Ordering MD: Venkata Ordaz MD Date of Service: 12/27/21 Procedure(s): XR shoulder LT min 2V* 41065 Accession Number(s): [id number] Report Number: [id number] WS: [email or web address] Left shoulder, 3 views, 12/27/2021 Clinical Data: shoulder pain Comparison: Left shoulder, 08/01/2017. Findings: No fractures or dislocations are seen. 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 The adjacent left clavicle, left scapula and ribs are normal. The soft tissues are unremarkable. There is a monitor lead on the left arm. There is a radiopaque clip in the pro ximal lateral subcutaneous tissue of the arm. XR/XR shoulder LT min 2V* 64192 Impression: Negative left shoulder. ? Dictated By: Dori Martin MD Signed By: Dori Martin MD Signed Date/Time: 12/27/21 1434 DD/ [address] [address] XRay Report Signed Patient: David Cortes Unit #: [id number] : 1965 Age/Sex: 56 / M ADM Date: 12/27/21 Loc: ER Room/Bed: Attending Dr: Ordering Provider/Ordering MD: Venkata Ordaz MD Date of Service: 12/27/21 Procedure(s): XR chest 1V portable 11658 Accession Number(s): [id number] Report Number: [id number] WS: [email or web address] Portable AP upright chest, 12/27/2021 Clinical Data: chest pain Comparison: Portable chest, 10/01/2021. Findings: No nodules, masses or effusions are seen. The heart is enlarged. The pulmonary vascularity is not increased. No pneumonia or pneumothorax is seen. There are monitor leads on the chest wall. There is an orthopedic anchor in the right humeral head. XR/XR chest 1V portable [id number] Impression: Cardiomegaly. ? Dictated By: Dori Martin MD Signed By: Dori Martin MD Signed Date/Time: 12/27/21 1429 DD/ 142 Discharge Plan Discharge Patient Disposition: Home Clinical Impression: Chest pressure, Headache, Left shoulder pain Condition: Stable Prescriptions: New acetaminophen 500 mg tablet 500 mg PO Q6H PRN (Reason: pain) 5 Days Qty: 20 0RF No Action quetiapine 300 mg tablet 600 mg PO BEDTIME 30 Days Qty: 60 1RF gabapentin 800 mg tablet 800 mg PO TID 30 Days Qty: 90 1RF multivitamin [Multiple Vitamins] Tablet 1 tab PO DAILY 0RF tamsulosin 0.4 mg capsule 0.4 mg PO DAILY Qty: 60 0RF ibuprofen 600 mg tablet 600 mg PO Q8H PRN (Reason: pain) Qty: 30 0RF aspirin 81 mg Tablet,Delayed Release (Dr/Ec) 81 mg PO QAM 0RF ascorbic acid (vitamin C) [Vitamin C] 500 mg Tablet 500 mg PO QAM 0RF albuterol sulfate 90 mcg/actuation HFA aerosol inhaler 2 puff inhalation Q6H PRN (Reason: shortness of breath or wheezing) 0RF Discharge Orders: Discharge ED (Routine); Ordered 12/27/21 Ordered By: Venkata Ordaz Discharge Diet: Advance as tolerated Discharge Activity: Increase activity as tolerated Patient Instructions: Chest Pain (ED) Activity Restrictions/Additional Instructions: Come back to the emergency room if your chest pain worsens, have any fever or chills, worsening shortness of breath, worsening exertional lightheadedness, or any new or concerning complaints. 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
[2021-12-27 14:21] LABS: Alanine Aminotransferase 14 U/L (0-41); Albumin Level 4.2 g/dL (3.5-5.2); Alkaline Phosphatase 110 IU/L (40-130); Aspartate Amino Transferase 12 U/L (0-40); Blood Urea Nitrogen 18 mg/dL (6-20); Calcium 9.1 mg/dL (8.5-10.5); Carbon Dioxide 29 mmol/L (22-29); Chloride 102 mmol/L (98-107); Globulin 2.9 g/dL (1.3-4.6); Glomerular Filtration Rate 77.3 mL/min (90-130); Glucose 109 mg/dL (65-115); Osmolality Calculated 292 mOsm/kg (285-295); Sodium 140 mmol/L (136-145); Total Bilirubin 0.3 mg/dL (0.15-1.2); Total Protein 7.1 g/dL (6.6-8.7)
[2021-12-27] MEDS: ketorolac 30 mg/mL INJ IVP (14:27)
[2021-12-27] MEDS: acetaminophen 500 mg Tablet PO (14:27)
[2021-12-27] MEDS: sodium chloride 0.9% 1,000 ML 999 ML IV (14:27)
[2021-12-27 15:14] LABS: Troponin(5th) Baseline 21 ng/L (0-15)
[2021-12-27 15:26] LABS: D Dimer 0.52 ug/mIFEU (0-0.59)
[2021-12-27 15:55] LABS: Troponin 5 2HR 20.59 ng/L (0-15)
[2021-12-27 15:56] LABS: Troponin 5 2HR Delta -0.41 ABS# (0-10)
--- NOTE | 2021-12-27 16:08 | ECG_ITS ---
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 Measurements Intervals Theodore Rate: 77 P: 53 [place]: 172 QRS: 44 QRSD: 110 T: 55 QT: 404 QTc: 459 Interpretive Statements SINUS RHYTHM POSSIBLE LEFT ATRIAL ENLARGEMENT [-0.1mV P-WAVE IN V1/V2] Compared to ECG 12/27/2021 12:52:12 No significant changes Electronically Signed On 12-28-2021 6:02:10 CDT by Penny Mac M.D. [id number] f
[2021-12-27 16:11] VITALS: BP 146/90; PULSE 81; RESP 18; O2SAT 98
[2021-12-27 16:19] LABS: Add Urine Microscopic? NO; Charge for UA Resulting for Rev
[2021-12-27 16:23] LABS: Glucose Urine UA Norm (Normal); Protein Urine Neg (Negative); Urine Appearance Clear (CLEAR); Urine Color Yellow (Yellow); pH Urine 6 (5-7)
[2021-12-27 16:24] LABS: Bilirubin Urine Neg (Negative); Blood Urine Neg (Negative); Ketones Urine Negative (Negative); Leukocyte Esterase Urine Negative (Negative); Nitrate Urine Negative (Negative); Urobilinogen Urine Norm (Negative)
[2021-12-27 17:42] VITALS: PULSE 80; RESP 16; O2SAT 93
[2021-12-27] MEDS: ipratropium-albuterol 3 mL Neb INHALATION ×3 (17:43→17:44)
[2021-12-27 17:48] VITALS: PULSE 76; PULSE 77; RESP 16; O2SAT 98
[2021-12-27 17:50] VITALS: PULSE 74
[2021-12-27 17:51] VITALS: PULSE 76; RESP 16; O2SAT 98
== END 2021-12-27 19:23 | disposition home or self-care (01) ==
PROVIDERS: Student in an Organized Health Care Education/Training Program; Emergency Provider Emergency Medicine
DX: R07.89 Other chest pain (principal); R51.9 Headache, unspecified; M25.512 Pain in left shoulder; J44.9 Chronic obstructive pulmonary disease, unspecified; I50.9 Heart failure, unspecified; F41.9 Anxiety disorder, unspecified; Z79.82 Long term (current) use of aspirin
CPT/HCPCS: 71045; 73030; 80053; 81003; 83735; 84484; 85025; 85378; 93005; 94640; 96361; 96374; 99285; J1885; J7030

== ENCOUNTER 2022-01-15 23:41 | Emergency (ER) | payer MEDICAID, SELFPAY ==
[2022-01-15 23:55] VITALS: BP 138/82; PULSE 83; RESP 18; TEMP 36.8; O2SAT 97; BMI 30.5
--- NOTE | 2022-01-16 00:07 | W.ED.DENTAL ---
HPI - Dental/Oral General: Chief complaint: Dental/Oral Stated complaint: severe dental pain Time Seen by Provider: 01/15/22 23:54 History of Present Illness: 56-year-old male patient comes in today with complaints of right upper jaw pain. Patient also reports pain going to his ear. Patient has a decayed tooth that there that started bothering him 2 to 3 days ago but has been worse tonight. Patient had taken Seroquel prior to arrival to the ER and reports feeling tired due to his medication. Patient appears nontoxic. Patient manages secretions and his airway well. Patient appears in mild pain. Review of Systems General: Reports: 10 or more systems reviewed and unremarkable except in HPI and below ENMT: Reports: dental pain PFSH ED PFSH: Medical History Asthma Cannabis dependence, uncomplicated CHF (congestive heart failure) COPD (chronic obstructive pulmonary disease) On combination antipsychotic drug therapy Other stimulant dependence, uncomplicated Psychiatric care Surgical History Status post club foot correction at Family History Mother Psychiatric illness Schizophrenia Social History Smoking and tobacco status: current every day smoker cigarettes Smoking risk assessment/counseling performed?: Yes Tobacco counseling given: counseling >3 minutes Alcohol intake: never Household members: other Details: roommate x 1 Physical Exam Const: COMMON NORMALS: alert HENMT: COMMON NORMALS: normocephalic HEAD & SCALP: normocephalic TEETH & GINGIVA: Yes abnormal tooth and associated gingiva Neck/C-Spine: COMMON NORMALS: full ROM Resp: COMMON NORMALS: normal respiratory effort Cardio: COMMON NORMALS: regular rate RATE: regular rate Extremity: COMMON NORMALS: normal to inspection Neuro: SENSORIUM/ORIENTATION: Yes alert Skin: COMMON NORMALS: no rashes or lesions noted GENERAL SKIN EXAM: no rashes or lesions noted Course Vital Signs: Vital signs: Vital Signs Temperature 98.3 F 01/15/22 23:55 Pulse Rate 83 01/15/22 23:55 Respiratory Rate 18 01/15/22 23:55 Blood Pressure 138/82 01/15/22 23:55 Pulse Oximetry 97 01/15/22 23:55 MDM - Dental/Oral Medical Decision Making 56-year-old male patient comes in today with complaints of dental pain. On exam patient has poor dentition. Patient has some redness and swelling to the third molar of the right upper jaw. Posterior pharynx is normal. Patient manages secretions well. Vital signs are normal. Differential diagnosis includes but not limited to toothache, dental abscess, dental caries. Reviewed exam with patient will start on Augmentin 1 tablet twice a day for 7 days for concerns of dental abscess. Patient was recommended to follow-up with dentist for definitive care. Patient reported understanding. Patient was given 1 Augmentin and a dose of ketorolac in the ER for his pain and treatment of infection. Discharge Plan Discharge Patient Disposition: Home Clinical Impression: Toothache Condition: Stable Prescriptions: New amoxicillin-pot clavulanate 875-125 mg tablet 1 tab PO BID Qty: 14 0RF Continued ibuprofen 600 mg tablet 600 mg PO Q8H PRN (Reason: pain) Qty: 30 0RF No Action quetiapine 300 mg tablet 600 mg PO BEDTIME 30 Days Qty: 60 1RF gabapentin 800 mg tablet 800 mg PO TID 30 Days Qty: 90 1RF multivitamin [Multiple Vitamins] Tablet 1 tab PO DAILY 0RF tamsulosin 0.4 mg capsule 0.4 mg PO DAILY Qty: 60 0RF aspirin 81 mg Tablet,Delayed Release (Dr/Ec) 81 mg PO QAM 0RF ascorbic acid (vitamin C) [Vitamin C] 500 mg Tablet 500 mg PO QAM 0RF albuterol sulfate 90 mcg/actuation HFA aerosol inhaler 2 puff inhalation Q6H PRN (Reason: shortness of breath or wheezing) 0RF Discharge Orders: Discharge ED (Routine); Ordered 01/16/22 Ordered By: Silvestre Irizarry Discharge Diet: Usual diet Discharge Activity: Increase activity as tolerated Patient Instructions: Toothache (ED) Activity Restrictions/Additional Instructions: Take medication as directed. Follow-up with dentist for definitive care. Return to ER for new concerns. 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
== END 2022-01-16 00:52 | disposition home or self-care (01) ==
PROVIDERS: Emergency Provider Nurse Practitioner Family
DX: K08.89 Other specified disorders of teeth and supporting structures (principal); F17.210 Nicotine dependence, cigarettes, uncomplicated
CPT/HCPCS: 99283

== ENCOUNTER 2022-02-01 14:48 | Inpatient (IN) | payer MEDICAID, SELFPAY ==
[2022-02-01 14:58] VITALS: BP 120/65; PULSE 78; RESP 18; TEMP 36.7; O2SAT 97; BMI 30.5
--- NOTE | 2022-02-01 15:08 | ECG_ITS ---
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 Measurements Intervals [place] Rate: 79 P: 59 [place]: 166 QRS: 62 QRSD: 104 T: 51 QT: 390 QTc: 447 Interpretive Statements SINUS RHYTHM Electronically Signed On 02-01-2022 20:28:55 CDT by Alexis Adan M.D. [id number]
--- NOTE | 2022-02-01 16:42 | XRR_ITS ---
PROCEDURE INFORMATION: Exam: XR Chest Exam date and time: 02/01/2022 4:46 PM Age: 56 years old Clinical indication: Angina; Additional info: Chest pain with breathing TECHNIQUE: Imaging protocol: Radiologic exam of the chest. Views: 2 views. COMPARISON: CR XR chest 1V portable [id number] 12/27/2021 2:15 PM FINDINGS: Lungs: The lungs are clear. Pleural spaces: Unremarkable. No pleural effusion. No pneumothorax. Heart/Mediastinum: Unremarkable. No cardiomegaly. Bones/joints: Right shoulder acromioplasty changes are appreciated. An orthopedic anchor is again seen in the right humeral head. Prominent anterior endplate osteophytes are present in the mid to lower thoracic spine. No acute fracture is visualized. XR/XR chest 2V* [id number] IMPRESSION: No acute cardiopulmonary abnormality.
[2022-02-01 18:32] LABS: Add Urine Microscopic? NO; Charge for UA Resulting for Rev
[2022-02-01 18:36] LABS: Bilirubin Urine Neg (Negative); Blood Urine Neg (Negative); Glucose Urine UA Norm (Normal); Ketones Urine Negative (Negative); Leukocyte Esterase Urine Negative (Negative); Nitrate Urine Negative (Negative); Protein Urine Neg (Negative); Urine Appearance Clear (CLEAR); Urine Color Yellow (Yellow); Urobilinogen Urine Norm (Negative); pH Urine 5 (5-7)
[2022-02-01 18:53] LABS: SARS Covid-2 Antigen Negative (Negative)
[2022-02-01 19:15] LABS: Basophils # 0.1 10^3/uL (0.0-0.1); Basophils % 0.8 %; Eosinophils # 0.2 10^3/uL (0.0-0.8); Eosinophils % 2.5 %; Hematocrit 41.5 % (42.0-52.0); Hemoglobin 13.5 g/dL (11.7-16.6); Lymphocytes % 31.6 %; Mean Corpuscular HGB Conc 32.5 g/dL (30.0-36.0); Mean Corpuscular Hemoglobin 29.4 pg (28.0-34.0); Mean Corpuscular Volume 90.4 fl (80-94); Mean Platelet Volume 8.9 fL (7.4-10.4); Monocytes # 0.6 10^3/uL (0.2-0.9); Monocytes % 9.3 %; Neutrophils % 55.5 %; Nucleated Red Blood Cells % 0 %; Platelet Count 260 10^3/cmm (130-400); Red Blood Count 4.59 10^6/uL (4.1-5.3); Red Cell Distribution Width 13.7 % (12.1-15.1); White Blood Count 6.3 10^3/uL (4.0-10.0)
[2022-02-01 19:28] VITALS: PULSE 86; RESP 18; O2SAT 97
[2022-02-01] MEDS: ipratropium-albuterol 3 mL Neb 9 ML INHALATION (19:28)
[2022-02-01 19:36] LABS: Troponin T (5th) Once 22 ng/L (0-15)
[2022-02-01 19:37] VITALS: PULSE 89
[2022-02-01 20:32] LABS: THC Screen Urine Positive (Negative)
[2022-02-01 20:33] LABS: Amphetamines Screen Urine Positive (Negative); Barbiturates Screen Urine Negative (Negative); Benzodiazepines Screen Urine Negative (Negative); Cocaine Screen Urine Negative (Negative); Opiate Screen Urine Negative (Negative); PCP Screen Urine Negative (Negative)
[2022-02-01 21:01] LABS: Alanine Aminotransferase 17 U/L (0-41); Albumin Level 4.1 g/dL (3.5-5.2); Alkaline Phosphatase 110 IU/L (40-130); Aspartate Amino Transferase 11 U/L (0-40); Blood Urea Nitrogen 16 mg/dL (6-20); Calcium 8.5 mg/dL (8.5-10.5); Carbon Dioxide 24 mmol/L (22-29); Chloride 101 mmol/L (98-107); Globulin 2.2 g/dL (1.3-4.6); Glucose 85 mg/dL (65-115); Osmolality Calculated 284 mOsm/kg (285-295); Sodium 137 mmol/L (136-145); Total Bilirubin 0.2 mg/dL (0.15-1.2); Total Protein 6.3 g/dL (6.6-8.7)
[2022-02-01 21:19] LABS: Acetaminophen < 5.0 ug/mL (10-30); Salicylate < 0.3 mg/dL (3-10)
[2022-02-01 21:22] LABS: Troponin T (5th) Once 20 ng/L (0-15)
[2022-02-01 23:24] VITALS: BP 140/86; PULSE 86; RESP 20; O2SAT 95
[2022-02-02] VITALS (7 sets, daily range): BP systolic 116–152; BP diastolic 74–82; PULSE 71–98; RESP 16–20; TEMP 36.2–36.8; O2SAT 94–98
--- NOTE | 2022-02-02 00:59 | W.ED.CHESTPA ---
HPI - Chest Pain General: Chief Complaint: Chest Pain Stated Complaint: cp Time Seen by Provider: 02/01/22 17:08 History of Present Illness: 56 yo male patient presents to ER c/o SOB and chest pain x a few days Pt states he has had this before and he received a breathing treatment and it helped. Pt denies any cough or fever. Pt states he has not followed up with any of his doctors. Pt states he is also suicidal. Pt states he has thought os suicides and lots of ideas as to how he would do it. Pt states he has hx of suicide attempts. Associated symptoms: Deny abdominal pain, diaphoresis, fever(s), nausea, palpitations, syncope or vomiting Review of Systems Const: Denies: fever(s), chills, body aches, change in appetite, change in weight, fatigue, malaise or diaphoresis Eyes: Denies: change in vision, blurry vision, blind spots, photophobia, eye discomfort, eye discharge, eye redness, floaters or seeing flashes ENMT: Denies: throat pain, uvular edema, enlarged tonsils, odynophagia, hoarseness, mouth pain, swelling of lips/tongue, oral sores, bleeding gums, dental pain, dry mouth, ear or mastoid pain, ear discharge, change in hearing, tinnitus, disequilibrium, nasal discharge, nasal congestion, post nasal drip or sinus pain Card: Denies: palpitations, irregular heart rhythm, edema, swelling of feet/ankles, lightheadedness, syncope, pre-syncope, dyspnea on exertion, orthopnea, leg pain with exertion or acrocyanosis Resp: Denies: productive cough, non-productive cough, wheezing, stridor, pain on inspiration, change in phlegm color, hemoptysis or chest congestion GI: Denies: abdominal pain, nausea, vomiting, hematemesis, dysphagia, diarrhea, constipation, GI cramping, change in bowel habits or rectal pain : Denies: flank pain, dysuria, urinary frequency, urinary urgency, urinary hesitancy or hematuria Musc: Denies: neck pain, back pain, extremity pain, extremity swelling, joint pain, joint swelling, joint redness, joint warmth or deformity Skin/Breast: Denies: rash, pruritus, erythema, sores, new lesions, changes in skin color or dry skin Neuro: Denies: headache(s), numbness in extremities, weakness in extremities, sensory changes, lack of coordination, difficulty walking, frequent falls, dizziness, vertigo, confusion, behavioral changes, Slurred speech present, difficulty communicating thoughts or seizure-like activity Psych: Denies: anxiety or homicidal ideation Endo: Denies: polyuria, polydipsia, tired all the time, cold intolerance, excessive sweating, flushing, hot flashes or heat intolerance Tab/Lymph: Denies: easy bruising, easy bleeding, petechiae, purpura, enlarged lymph nodes or tender lymph nodes All/Imm: Denies: urticaria, throat swelling, tongue swelling, facial swelling, acute wheezing or itchy eyes PFSH ED PFSH: Medical History Asthma Cannabis dependence, uncomplicated CHF (congestive heart failure) COPD (chronic obstructive pulmonary disease) On combination antipsychotic drug therapy Other stimulant dependence, uncomplicated Psychiatric care Surgical History Status post club foot correction at Family History Mother Psychiatric illness Schizophrenia Social History Smoking and tobacco status: current every day smoker cigarettes Smoking risk assessment/counseling performed?: Yes Tobacco counseling given: counseling >3 minutes Alcohol intake: never Household members: other Details: roommate x 1 Physical Exam Const: COMMON NORMALS: no acute distress, patient oriented x3, healthy appearing, alert and well nourished GENERAL APPEARANCE: cooperative, comfortable, well kempt and well developed; not ill appearing ORIENTATION/CONSCIOUSNESS: Yes awake, Yes oriented to person, Yes oriented to place and Yes oriented to time HENMT: COMMON NORMALS: normocephalic, atraumatic, hearing grossly normal bilaterally, external ears normal, EAC's normal, TM's normal bilaterally, Normal external nose present, Normal nasal mucous membranes and turbinates present and moist oral mucous membranes HEAD & SCALP: normal to inspection, normocephalic and atraumatic FACE & SINUS: normal facial exam, sinuses nontender and face symmetric NOSE: Normal external nose present, Normal nares present, Normal nasal mucous membranes and turbinates present, No nasal discharge present and Abnormal external nose present EXTERNAL EAR: Yes external ears normal and Yes mastoids normal EXTERNAL AUDITORY CANAL: EAC's normal TYMPANIC MEMBRANE: TM's normal bilaterally MOUTH: Normal oral and palatal mucosa present, lip normal, tongue normal and Normal salivary glands and ducts present THROAT: no uvular edema Eye: COMMON NORMALS: Equal, round and reactive pupils present, EOMs intact bilaterally, conjunctivae normal, no scleral icterus and no papilledema GENERAL EYE: appearance normal, both eyes and all related structures EYELID: eyelids normal CONJUNCTIVA: Yes conjunctivae normal SCLERA: sclerae normal CORNEA: Yes corneas normal PUPIL: Yes Equal, round and reactive pupils present DIRECT OPHTHALMOSCOPY: Yes no papilledema Neck/C-Spine: COMMON NORMALS: full ROM, no lymphadenopathy, supple, no meningeal signs, no JVD and Thyroid normal GENERAL: Yes normal visual inspection and Yes trachea midline THYROID: Thyroid normal CERVICAL SPINE: Yes cervical ROM normal Lymph: LYMPHATIC: no lymphadenopathy noted and no lymphedema noted Chest: COMMONS NORMALS: normal inspection of the chest and normal palpation of entire chest wall Resp: COMMON NORMALS: normal respiratory effort, No retractions, No use of accessory muscles and clear to auscultation bilaterally EFFORT & INSPECTION: Yes able to speak in complete sentences and Yes symmetric chest movement AUSCULTATION: clear to auscultation bilaterally Cardio: COMMON NORMALS: no JVD, regular rate and regular rhythm RATE: regular rate RHYTHM: regular rhythm GI: COMMON NORMALS: Normal to inspection, nondistended, normoactive bowel sounds present, Soft to palpation, non-tender, No hepatosplenomegaly present, no masses and no bruits INSPECTION: Yes normal to inspection AUSCULTATION: Yes normoactive bowel sounds PALPATION: Yes Soft to palpation and Yes No hepatosplenomegaly present PERCUSSION: normal to percussion RECTAL EXAM: Yes deferred : COMMON NORMALS: Yes no CVA tenderness BLADDER/KIDNEY EXAM: Yes no CVA tenderness Back/Pelvis: COMMON NORMALS: no CVA tenderness, thoracic and lumbar spine normal to inspection, no thoracic nor lumbar tenderness, thoraco-lumbar ROM normal and straight leg raise negative bilaterally THORACIC SPINE/UPPER BACK: Yes normal to inspection LUMBAR SPINE/LOWER BACK: Yes normal to inspection Extremity: COMMON NORMALS: normal to inspection, full ROM and capillary refill normal GENERAL: Yes normal exam except as noted Neuro: COMMON NORMALS: patient oriented x3, CN's II-XII intact bilaterally, moves all extremities, no focal motor deficits, no sensory deficits noted, deep tendon reflexes 2+ bilaterally and gait normal SENSORIUM/ORIENTATION: Yes alert, Yes oriented to person, Yes oriented to place and Yes oriented to time MENINGEAL SIGNS: Yes no meningeal signs CRANIAL NERVES: Yes CN normal except as noted SPEECH: speech normal GAIT: Yes Normal gait present SENSORY EXAM: Yes extremities MOTOR EXAM: 5/5 motor strength present throughout Psych: COMMON NORMALS: mental status grossly normal, Normal thought process present, cooperative, normal affect, speech normal, activity/motor behavior normal, denies hallucinations and denies homicidal ideation APPEARANCE: Yes grossly normal and Yes well kempt ATTITUDE: Yes calm ACTIVITY/MOTOR BEHAVIOR: Yes appropriate eye contact SPEECH: Yes normal speech THOUGHT PROCESS: Normal thought process present THOUGHT CONTENT: Yes Normal thought content present ATTENTION/CONCENTRATION: Yes attention grossly intact MEMORY/COGNITION: Yes memory grossly intact INSIGHT: Good insight present (Psych) JUDGEMENT: Good judgement present (Psych) Skin: COMMON NORMALS: no rashes or lesions noted, no wounds, turgor normal, no jaundice, no petechiae and no mottling GENERAL SKIN EXAM: no rashes or lesions noted and turgor normal Course Vital Signs: Vital signs: Vital Signs Temperature 98.1 F 02/01/22 14:58 Pulse Rate 86 02/01/22 23:24 Respiratory Rate 20 H 02/01/22 23:24 Blood Pressure 140/86 02/01/22 23:24 Pulse Oximetry 95 02/01/22 23:24 MDM - Chest Pain Medical Decision Making Patient is well appearing non toxic and in no acute distress. 56 yo male patient presents to ER c/o SOB and chest pain x a few days Pt states he has had this before and he received a breathing treatment and it helped. Pt denies any cough or fever. Pt states he has not followed up with any of his doctors. Pt states he is also suicidal. Pt states he has thought os suicides and lots of ideas as to how he would do it. Pt states he has hx of suicide attempts. Patients chest xray is negative for any acute findings. there is no st elevation or depression on EKG and trop and delta are normal this making cardiac ischemia unlikely. Pts VSS. Pt is not tachy and pulse ox on room air is WNL. Given patients c/o suicidal ideation I did call and discuss this patient with Dr. Louis who consulted with patient and will plan to admit at this time. Pt is negative for Covid. Lab Data : 02/01/22 19:00 02/01/22 19:00 Radiology Impressions Chest X-Ray 02/01/22 16:42 IMPRESSION: No acute cardiopulmonary abnormality. Laboratory Results WBC 6.3 10^3/uL (4.0-10.0) 02/01/22 19:00 RBC 4.59 10^6/uL (4.1-5.3) 02/01/22 19:00 Hgb 13.5 g/dL (11.7-16.6) 02/01/22 19:00 Hct 41.5 % (42.0-52.0) L 02/01/22 19:00 MCV 90.4 fl (80-94) 02/01/22 19:00 MCH 29.4 pg (28.0-34.0) 02/01/22 19:00 MCHC 32.5 g/dL (30.0-36.0) 02/01/22 19:00 RDW 13.7 % (12.1-15.1) 02/01/22 19:00 Plt Count 260 10^3/cmm (130-400) 02/01/22 19:00 MPV 8.9 fL (7.4-10.4) 02/01/22 19:00 Neut % (Auto) 55.5 % 02/01/22 19:00 Lymph % (Auto) 31.6 % 02/01/22 19:00 [place] % (Auto) 9.3 % 02/01/22 19:00 Eos % (Auto) 2.5 % 02/01/22 19:00 Baso % (Auto) 0.8 % 02/01/22 19:00 Neut # (Auto) 3.50 10^3/uL (1.8-7.7) 02/01/22 19:00 Lymph # (Auto) 2.0 10^3/uL (0.8-4.8) 02/01/22 19:00 [place] # (Auto) 0.6 10^3/uL (0.2-0.9) 02/01/22 19:00 Eos # (Auto) 0.2 10^3/uL (0.0-0.8) 02/01/22 19:00 Baso # (Auto) 0.1 10^3/uL (0.0-0.1) 02/01/22 19:00 Nucleated RBC % (auto) 0 % 02/01/22 19:00 Nucleated RBCs # 0.0 /100WBC 02/01/22 19:00 Sodium 137 mmol/L (136-145) 02/01/22 19:00 Potassium 4.0 mmol/L (3.5-5.1) 02/01/22 19:00 Chloride 101 mmol/L (98-107) 02/01/22 19:00 Carbon Dioxide 24 mmol/L (22-29) 02/01/22 19:00 Anion Gap 16.0 (5-19) 02/01/22 19:00 BUN 16 mg/dL (6-20) 02/01/22 19:00 Creatinine 0.8 mg/dL (0.7-1.2) 02/01/22 19:00 GFR Calculation 100.0 mL/min (90-130) 02/01/22 19:00 Glucose 85 mg/dL (65-115) 02/01/22 19:00 Calculated Osmolality 284 mOsm/kg (285-295) L 02/01/22 19:00 Calcium 8.5 mg/dL (8.5-10.5) 02/01/22 19:00 Total Bilirubin 0.2 mg/dL (0.15-1.2) 02/01/22 19:00 AST 11 U/L (0-40) 02/01/22 19:00 ALT 17 U/L (0-41) 02/01/22 19:00 Alkaline Phosphatase 110 IU/L (40-130) 02/01/22 19:00 Troponin T Gen 5 ng/L 20 ng/L (0-15) H 02/01/22 20:52 Total Protein 6.3 g/dL (6.6-8.7) L 02/01/22 19:00 Albumin 4.1 g/dL (3.5-5.2) 02/01/22 19:00 Globulin 2.2 g/dL (1.3-4.6) 02/01/22 19:00 Urine Color Yellow (Yellow) 02/01/22 18:11 Urine Appearance Clear (CLEAR) 02/01/22 18:11 Urine pH 5 (5-7) 02/01/22 18:11 Ur Specific [place] 1.030 (1.005-1.030) 02/01/22 18:11 Urine Protein Neg (Negative) 02/01/22 18:11 Urine Glucose (UA) Norm (Normal) 02/01/22 18:11 Urine Ketones Negative (Negative) 02/01/22 18:11 Urine Blood Neg (Negative) 02/01/22 18:11 Urine Nitrate Negative (Negative) 02/01/22 18:11 Urine Bilirubin Neg (Negative) 02/01/22 18:11 Urine Urobilinogen Norm mg/dL (Negative) 02/01/22 18:11 Ur Leukocyte Esterase Negative (Negative) 02/01/22 18:11 Salicylates < 0.3 mg/dL (3-10) L 02/01/22 19:00 Urine Opiates Screen Negative ng/mL (Negative) 02/01/22 18:12 Acetaminophen < 5.0 ug/mL (10-30) L 02/01/22 19:00 Ur Barbiturates Screen Negative ng/mL (Negative) 02/01/22 18:12 Ur Phencyclidine Scrn Negative ng/mL (Negative) 02/01/22 18:12 Ur Amphetamines Screen Positive ng/mL (Negative) H 02/01/22 18:12 U Benzodiazepines Scrn Negative ng/mL (Negative) 02/01/22 18:12 Urine Cocaine Screen Negative ng/mL (Negative) 02/01/22 18:12 U Marijuana (THC) Screen Positive ng/mL (Negative) H 02/01/22 18:12 SARS-CoV-2 Ag (Rapid) Negative (Negative) 02/01/22 18:21 Discharge Plan Discharge Admit Provider: Tomas Louis Condition: Stable Coding Level of Care Code ED Junior Sales Assistant for Panchito Cooper
[2022-02-02] MEDS: gabapentin 400 mg Capsule 800 MG PO ×4 (02:27→20:11)
[2022-02-02] MEDS: quetiapine 300 mg Tablet 600 MG PO ×2 (02:27→20:11)
[2022-02-02] MEDS: albuterol 8 gm MDI 2 PUFF INHALATION (02:29)
--- NOTE | 2022-02-02 02:35 | PC.ADMIT ---
[address] Admission Note: The patient,David Cortes,56 y/o, was given written information regarding hospital policies, unit procedures and contact persons. Patient's smoking status: current every day smoker. Vital Signs - 8 hr 02/01/22 19:28 02/01/22 19:37 02/01/22 23:24 Pulse Rate 86 89 86 Respiratory Rate 18 20 H Blood Pressure 140/86 Pulse Oximetry 97 95 02/02/22 01:22 02/02/22 01:26 02/02/22 02:28 Pulse Rate 78 82 Respiratory Rate 20 H 17 16 Blood Pressure 152/82 Pulse Oximetry 94 98 short of breath with exertion, diminished basses
[2022-02-02] MEDS: tamsulosin 0.4 mg Capsule PO (07:48)
[2022-02-02] MEDS: multivitamin therapeutic Tablet 1 TAB PO (07:48)
[2022-02-02] MEDS: ascorbic acid 500 mg Tablet PO (07:48)
[2022-02-02] MEDS: aspirin 81 mg EC Tablet PO (07:48)
[2022-02-02] MEDS: ibuprofen 600 mg Tablet PO (09:57)
--- NOTE | 2022-02-02 10:40 | W.PM.NPUH&PS ---
Providers/Chief Complaint Admitting Physician: Tomas Louis MD Chief Complaint: suicidal ideation HPI NPU History of Present Illness David Cortes is a 56 year old male history of schizophrenia with a recent past realization at the September admitted for suicidal ideation. He had initially presented to the emergency room with chest pain and a myriad of symptoms and reported that he wished to hurt himself. Patient was poor historian today but reports that he hearing a voice that is male that is not his to hurt himself. He reports that he ran out of his medication a few days ago and the frequency and volume of the voices were increasing. He endorses that the voices often say negative things he reports that he has had past few weeks he reports out of the building. He reports some feelings of hopelessness. Not endorse any interview today. He reports using a little bit of methamphetamine over the past few years and reports that it gives him energy. He reports last use of methamphetamine was a few days ago. Inpatient psychiatric hx: reports 10 previous hospitalizations most recently here in September 2021. Outpatient treatment: at [facility] for last 2 years Substance abuse history: daily THC use, infrequent ETOH as it makes him paranoid and using methamphetamine frequently over three years, Medications: Seroquel 600mg at night, gabapentin, tamulosin, Medical Hx: Back injury, asthma, CHF, COPD, nonspecific abdominal pain Allergies: NKDA Surgeries: arm surgery, shoulder surgery Legal Hx: reports incarcerated for 10 years of his life, longest bid was 4 years ago, where he served time for robbery. Social Hx: Tarun was born in [place] and raised by his biological parents along with his 2 other sibling. He reports that he dropped out of school in 11th grade and earned a GED. He reports having some behavioral problems as a child. Being. He is living currently alone in a trailer has no children and has never been . Meds NPU Home Medications Medication Instructions Recorded Confirmed Last Taken Type multivitamin (Multiple Vitamins) 1 tab PO DAILY 02/18/20 02/02/22 12/27/21 History tamsulosin 0.4 mg capsule 0.4 mg PO DAILY #60 cap 09/30/21 02/02/22 12/27/21 Rx albuterol sulfate 90 mcg/actuation 2 puff INHALATION Q6H PRN 10/01/21 02/02/22 Unknown History aerosol inhaler ascorbic acid (vitamin C) 500 mg 500 mg PO QAM 10/01/21 02/02/22 12/26/21 History tablet (Vitamin C) aspirin 81 mg tablet,delayed 81 mg PO QAM 10/01/21 02/02/22 12/27/21 History release gabapentin 800 mg tablet 800 mg PO TID 30 Days #90 tab 12/24/21 02/02/22 12/27/21 Rx ibuprofen 600 mg tablet 600 mg PO Q8H PRN #30 tab 01/16/22 02/02/22 Unknown Rx quetiapine 300 mg tablet (Seroquel) 600 mg PO BEDTIME 02/02/22 02/02/22 Unknown History Allergies Allergy/AdvReac Type Severity Reaction Status Date / Time No Known Allergies Allergy Verified 12/24/21 13:15 PFSH NPU PFSH: Medical History Asthma Cannabis dependence, uncomplicated CHF (congestive heart failure) COPD (chronic obstructive pulmonary disease) On combination antipsychotic drug therapy Other stimulant dependence, uncomplicated Psychiatric care Surgical History Status post club foot correction at Family History Mother Psychiatric illness Schizophrenia Social History Smoking and tobacco status: current every day smoker cigarettes Smoking risk assessment/counseling performed?: Yes Tobacco counseling given: counseling >3 minutes Alcohol intake: never Household members: other Details: roommate x 1 Mental Status Exam MSE Comments: He had poor hygiene slow steady gait, he appeared in some acute he was difficult initially to arouse but was oriented to person place and time. His mood was described as depressed. His affect was blunted. His thought process was superficial and concrete. Thought content showed active suicidal ideation with no clear plan and no active homicidal ideation. There did appear to be thought blocking and he did report command auditory hallucinations, Insight: poor Judgment: feeble, Attention and concentration appeared impaired at this time. Speech was slow and slurred. Vitals/I&O/Wt Last Vital Signs Temp 98.1 F 02/01/22 14:58 Pulse 98 02/02/22 08:27 Resp 16 02/02/22 08:27 BP 152/82 07/23/22 01:26 Pulse Ox 97 02/02/22 08:27 Weight last 48 hrs Weight 102.058 kg Data NPU : 02/01/22 19:00 02/01/22 19:00 A&P Assessment and plan (1) Other schizophrenia: Status: Chronic (2) Suicidal ideation: Status: Acute (3) Cannabis dependence, uncomplicated: Status: Acute (4) Other stimulant dependence, uncomplicated: Status: Acute (5) Methamphetamine abuse: Status: Acute (6) Auditory hallucination: Status: Acute (7) Nonspecific abdominal pain: Status: Acute (8) Asthma: Status: Acute (9) COPD (chronic obstructive pulmonary disease): Status: Acute Plan This is a 56-year-old possibly male with long history of mental health and addiction issues who presents much like his last admission with issues with noncompliance with follow up with suicidal ideation and auditory hallucinations. ?1.? Continue current medications ?2.? Continue every 15 minute checks for safety. ?3.? Encourage individual, group and milieu therapies. ?4.? Encourage sober living treatment after discharge at the highest level of care to which he is willing to commit. Involuntary Hold Information 96 Hour Hold: 96 Hour Involuntary Admission: No Attestations NPU Medical Necessity Statement*: Inpatient hospitalization is medically necessary and the clinically appropriate intervention at this time.? We will initiate medications and make changes as indicated.? He will be in the hospital for over 2 midnights.? Likely length of stay 4-6 days. Coding Level of Care Code New Pt Acute Advisory Application Developer for Panchito Cooper Patient Type New History Problem Focused Exam Problem Focused Medical Decision Making Straight Forward Diagnoses Cannabis dependence, uncomplicated F12.20 Other stimulant dependence, uncomplicated F15.20 Methamphetamine abuse F15.10 Auditory hallucination R44.0 Nonspecific abdominal pain R10.9 Other schizophrenia F20.89 Asthma J45.909 COPD (chronic obstructive pulmonary disease) J44.9 Suicidal ideation R45.851
[2022-02-02] MEDS: acetaminophen 325 mg Tablet 650 MG PO ×2 (11:56→18:33)
[2022-02-03 06:00] VITALS: BP 106/55; PULSE 74; RESP 17; TEMP 36.4; O2SAT 98
[2022-02-03 07:33] VITALS: PULSE 80; RESP 16; O2SAT 97
[2022-02-03] MEDS: gabapentin 400 mg Capsule 800 MG PO ×3 (08:59→20:09)
[2022-02-03] MEDS: multivitamin therapeutic Tablet 1 TAB PO (08:59)
[2022-02-03] MEDS: tamsulosin 0.4 mg Capsule PO (08:59)
[2022-02-03] MEDS: ascorbic acid 500 mg Tablet PO (09:00)
[2022-02-03] MEDS: aspirin 81 mg EC Tablet PO (09:00)
[2022-02-03] MEDS: acetaminophen 325 mg Tablet 650 MG PO (09:01)
--- NOTE | 2022-02-03 10:15 | W.PM.NPUPNS ---
Subjective NPU Subjective: Patient is 56 year old white male with psychotic disorder NOS, methamphetamine abuse admitted with suicidal ideation and auditory hallucinations. He reports that he had been out of his medications for a few days and that this had made his voices worse. He continues to report hearing voices telling him to kill himself and reports paranoia. He minimized the effect of methamphetamine on making his mood worse or contribution to his psychotic symptoms stating no way, the meth helps me with my energy and it helps with pain. He reports the voices have been louder. Mental Status Exam MSE Comments: He had poor hygiene, slow steady gait, he appeared older than his stated age. His mood was described as depressed. ? His affect was blunted.? His thought process was? superficial and concrete. Thought content showed active? suicidal ideation with no clear plan and no active homicidal ideation. There did appear to be thought blocking and he did report command auditory hallucinations, Insight: feeble, Judgment: feeble, Attention and concentration appeared impaired at this time.? Speech was slow and slurred.? Vitals/I&O/Wt Last Vital Signs Temp 98.3 F 02/03/22 14:00 Pulse 81 02/03/22 16:04 Resp 16 02/03/22 16:04 BP 139/79 02/03/22 14:00 Pulse Ox 94 02/03/22 16:04 Weight last 48 hrs Weight 101.605 kg Data NPU : 02/01/22 19:00 02/01/22 19:00 A&P Assessment and plan (1) Suicidal ideation: Status: Acute (2) Other stimulant dependence, uncomplicated: Status: Acute (3) Methamphetamine abuse: Status: Acute (4) Auditory hallucination: Status: Acute (5) Other schizophrenia: Status: Chronic (6) Psychotic disorder due to psychoactive substance: Status: Acute Plan This is a 56-year-old possibly male with long history of mental health and addiction issues who presents much like his last admission with issues with noncompliance with follow up with suicidal ideation and auditory hallucinations.? ?1.? Increase seroquel to 700mg at night ?2.? Continue every 15 minute checks for safety. ?3.? Encourage individual, group and milieu therapies. ?4.? Encourage sober living treatment after discharge at the highest level of care to which he is willing to commit. Involuntary Hold Information 96 Hour Hold: 96 Hour Involuntary Admission: No Attestations NPU Medical Necessity Statement*: Inpatient hospitalization is medically necessary and the clinically appropriate intervention at this time.? We will initiate medications and make changes as indicated.? He will be hospitalized for a likely length of stay for 4-6 days. Coding Level of Care Code Established Pt Acute Marine Engine Mechanic for Panchito Cooper Patient Type Established History Problem Focused Exam Problem Focused Medical Decision Making Straight Forward Diagnoses Suicidal ideation R45.851 Other stimulant dependence, uncomplicated F15.20 Methamphetamine abuse F15.10 Auditory hallucination R44.0 Other schizophrenia F20.89 Psychotic disorder due to psychoactive substance F19.959
[2022-02-03] MEDS: ibuprofen 600 mg Tablet PO ×2 (12:40→19:02)
[2022-02-03] MEDS: nicotine 14 mg Patch 1 PATCH TRANSDERMA (12:41)
[2022-02-03 14:00] VITALS: BP 139/79; PULSE 77; RESP 18; TEMP 36.8; O2SAT 95
[2022-02-03] MEDS: albuterol 8 gm MDI 2 PUFF INHALATION (16:03)
[2022-02-03 16:04] VITALS: PULSE 81; RESP 16; O2SAT 94
[2022-02-03] MEDS: quetiapine 100 mg Tablet PO (20:08)
[2022-02-03] MEDS: trazodone 50 mg Tablet PO (20:08)
[2022-02-03] MEDS: quetiapine 300 mg Tablet 600 MG PO (20:08)
[2022-02-03 20:42] VITALS: BP 145/94; PULSE 92; RESP 18; TEMP 36.9; O2SAT 94
[2022-02-03] MEDS: benzocaine 20% 7 gm 1 APPLIC MUCOUS MEM (21:10)
[2022-02-04] MEDS: ibuprofen 600 mg Tablet PO ×3 (03:18→20:03)
[2022-02-04 06:00] VITALS: BP 122/75; PULSE 80; RESP 17; TEMP 36.5; O2SAT 96
[2022-02-04 08:58] VITALS: PULSE 84; RESP 16; O2SAT 94
--- NOTE | 2022-02-04 08:58 | PC.NURSE ---
Called RT During Nursing Shift Assessment pt had expiratory wheezes upon auscultation of the lungs. Pt states he uses an inhaler at home as needed. RT was called at 0819.
--- NOTE | 2022-02-04 09:01 | PC.NURSE ---
Pt SI/Hearing Voices Pt stated that he was having thoughts of hurting himself this morning. He is hearing voices that tell him to hurt himself. He states that the voices have become more frequent because of the pain. pt has an abscess tooth on the right side w/ visible swelling that is an 8/10 on pain scale. Notified med nurse. Was given Tylenol, will notify doctor upon arrival. Educated pt that if he feels like he is going to hurt himself that he should come talk to us and he verbalized understanding.
[2022-02-04] MEDS: nicotine 14 mg Patch 1 PATCH TRANSDERMA (10:14)
[2022-02-04] MEDS: aspirin 81 mg EC Tablet PO (10:15)
[2022-02-04] MEDS: gabapentin 400 mg Capsule 800 MG PO ×3 (10:15→19:53)
[2022-02-04] MEDS: multivitamin therapeutic Tablet 1 TAB PO (10:15)
[2022-02-04] MEDS: acetaminophen 325 mg Tablet 650 MG PO (10:15)
[2022-02-04] MEDS: ascorbic acid 500 mg Tablet PO (10:15)
[2022-02-04] MEDS: tamsulosin 0.4 mg Capsule PO (10:15)
[2022-02-04 14:00] VITALS: BP 146/88; PULSE 76; RESP 18; TEMP 36.7; O2SAT 94
--- NOTE | 2022-02-04 17:53 | W.PM.NPUPNS ---
Subjective NPU Subjective: Patient presents today reporting that he is doing okay. He reports that he does struggle with pain. And endorses little different sources of pain. Most of his requests were to get more of something. He did endorse wanting to see if he could get larger portions. He endorsed that he believes he could [facility]. Did discuss the risk benefits and alternatives of decreasing his Seroquel and he understood that he would need in this note. Mental Status Exam MSE Comments: This is an obese white male with limited dress, grooming and eye contact. No abnormal movements except for psychomotor retardation. Cooperative with exam in no acute distress. Speech was slightly decreased rate and volume. Mood described as okay, affect subdued. Thought process organized, thought content: patient denies suicidal or homicidal ideation, there were no delusions reported or noted, he denied any auditory or visual hallucinations. Attention and concentration were intact and memory appeared unreliable but none were formally tested. He is alert and oriented times three. Insight and judgment appeared limited and impulse control appeared limited. Vitals/I&O/Wt Last Vital Signs Temp 98.1 F 02/04/22 14:00 Pulse 76 02/04/22 14:00 Resp 18 02/04/22 14:00 BP 146/88 02/04/22 14:00 Pulse Ox 94 02/04/22 14:00 Weight last 48 hrs Weight 101.605 kg Data NPU : 02/01/22 19:00 02/01/22 19:00 A&P Assessment and plan (1) Psychotic disorder due to psychoactive substance: Status: Acute (2) Methamphetamine abuse: Status: Acute (3) Suicidal ideation: Status: Acute (4) On combination antipsychotic drug therapy: Status: Acute Plan This is a 56-year-old possibly male with long history of mental health and addiction issues who presents much like his last admission with issues with noncompliance with follow up with suicidal ideation and auditory hallucinations.? ?1.? Continue current medication. Decreased seroquel to 400mg at night ?2.? Continue every 15 minute checks for safety. ?3.? Encourage individual, group and milieu therapies. ?4.? Encourage sober living treatment after discharge at the highest level of care to which he is willing to commit. 5. Concern for malingering. Involuntary Hold Information 96 Hour Hold: 96 Hour Involuntary Admission: No Attestations NPU Medical Necessity Statement*: Inpatient hospitalization is medically necessary and the clinically appropriate intervention at this time.? We will initiate medications and make changes as indicated.? Likely length of stay for?2-4 days. Coding Level of Care Code Acute Assistant Professor Of English for [facility] Fwd Diagnoses Psychotic disorder due to psychoactive substance F19.959 Methamphetamine abuse F15.10 Suicidal ideation R45.851 On combination antipsychotic drug therapy Z79.899
[2022-02-04] MEDS: quetiapine 100 mg Tablet PO (19:53)
[2022-02-04] MEDS: quetiapine 300 mg Tablet 400 MG PO (19:56)
[2022-02-04] MEDS: hyDROXYzine 25 mg Capsule 50 MG PO (19:57)
[2022-02-04 20:18] VITALS: BP 154/93; PULSE 88; RESP 17; TEMP 36.6; O2SAT 96
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
[2022-02-04 21:55] VITALS: PULSE 81; RESP 16; O2SAT 95
[2022-02-04] MEDS: albuterol 8 gm MDI 2 PUFF INHALATION (21:55)
[2022-02-05] MEDS: ibuprofen 600 mg Tablet PO ×3 (02:57→20:20)
[2022-02-05] MEDS: acetaminophen 325 mg Tablet 650 MG PO (05:30)
[2022-02-05 06:00] VITALS: BP 138/93; PULSE 82; RESP 17; TEMP 36.6; O2SAT 98
[2022-02-05 08:00] VITALS: PULSE 76; RESP 16; O2SAT 92
[2022-02-05] MEDS: tamsulosin 0.4 mg Capsule PO (08:54)
[2022-02-05] MEDS: aspirin 81 mg EC Tablet PO (08:54)
[2022-02-05] MEDS: ascorbic acid 500 mg Tablet PO (08:54)
[2022-02-05] MEDS: multivitamin therapeutic Tablet 1 TAB PO (08:54)
[2022-02-05] MEDS: gabapentin 400 mg Capsule 800 MG PO ×3 (08:54→20:20)
[2022-02-05] MEDS: nicotine 14 mg Patch 1 PATCH TRANSDERMA (08:54)
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
[2022-02-05 11:36] VITALS: PULSE 79; RESP 17; O2SAT 94
[2022-02-05] MEDS: albuterol 8 gm MDI 2 PUFF INHALATION ×2 (11:36→21:01)
[2022-02-05 14:00] VITALS: BP 130/78; PULSE 82; RESP 18; TEMP 36.6; O2SAT 98
[2022-02-05] MEDS: hydrocortisone 1% cream 28 gm 1 APPLIC TOPICAL (16:45)
--- NOTE | 2022-02-05 17:50 | P.NPUPN_ITS ---
Subjective NPU Subjective: Presents today continuing to endorse different pain issues including a tooth abscess. Discussed risk benefits and alternatives of Initiating Keflex 500 mg p.o. 4 times daily for 7-days and he understood and agreed to proceed as is documented in this note. We also agreed to initiate 100 mg p.o. daily of Seroquel and he is supposed to meet with the [facility] program so we can discuss more concrete discharge options. Mental Status Exam MSE Comments: This is an obese white male with limited dress, grooming and eye contact. No abnormal movements except for psychomotor retardation. Cooperative with exam in no acute distress. Speech was slightly decreased rate and volume. Mood described as in pain, affect subdued. Thought process organized, thought content: patient denies suicidal or homicidal ideation, there were no delusions reported or noted, he denied any auditory or visual hallucinations. Attention and concentration were intact and memory appeared unreliable but none were formally tested. He is alert and oriented times three. Insight and judgment appeared limited and impulse control appeared limited. Vitals/I&O/Wt Last Vital Signs Temp 98.0 F 02/05/22 20:24 Pulse 86 02/05/22 21:00 Resp 18 02/05/22 21:00 BP 142/89 02/05/22 20:24 Pulse Ox 97 02/05/22 21:00 O2 Del Method 02/05/22 21:00 Data NPU : 02/01/22 19:00 02/01/22 19:00 A&P Assessment and plan (1) Psychotic disorder due to psychoactive substance: Status: Acute (2) Methamphetamine abuse: Status: Acute (3) Suicidal ideation: Status: Acute (4) On combination antipsychotic drug therapy: Status: Acute Plan This is a 56-year-old possibly male with long history of mental health and addiction issues who presents much like his last admission with issues with noncompliance with follow up with suicidal ideation and auditory hallucinations.? ?1.? Continue current medication. Decreased seroquel to 500mg at night, and will add 100 mg in the morning. Also started on Keflex 500 mg 4 times daily for 7 days. ?2.? Continue every 15 minute checks for safety. ?3.? Encourage individual, group and milieu therapies. ?4.? Encourage sober living treatment after discharge at the highest level of care to which he is willing to commit. 5. Concern for malingering. Involuntary Hold Information 96 Hour Hold: 96 Hour Involuntary Admission: No Attestations NPU Medical Necessity Statement*: Inpatient hospitalization is medically necessary and the clinically appropriate intervention at this time.? We will initiate medications and make changes as indicated.? Likely length of stay for?1-3 days. Coding Level of Care Code Acute Signing Agent for [employer] Fwd Diagnoses Psychotic disorder due to psychoactive substance F19.959 Methamphetamine abuse F15.10 Suicidal ideation R45.851 On combination antipsychotic drug therapy Z79.899
[2022-02-05] MEDS: quetiapine 300 mg Tablet PO (20:19)
[2022-02-05] MEDS: quetiapine 100 mg Tablet 200 MG PO (20:19)
[2022-02-05] MEDS: hyDROXYzine 25 mg Capsule 50 MG PO (20:20)
[2022-02-05 20:24] VITALS: BP 142/89; PULSE 71; RESP 20; TEMP 36.7; O2SAT 96
[2022-02-05 21:00] VITALS: PULSE 86; RESP 18; O2SAT 97
[2022-02-05] MEDS: cephALEXin 500 mg Capsule PO (21:11)
[2022-02-06] MEDS: acetaminophen 325 mg Tablet 650 MG PO (02:13)
[2022-02-06 06:00] VITALS: BP 124/72; PULSE 76; RESP 18; TEMP 36.5; O2SAT 96
[2022-02-06] MEDS: tamsulosin 0.4 mg Capsule PO (08:25)
[2022-02-06] MEDS: gabapentin 400 mg Capsule 800 MG PO ×3 (08:25→20:58)
[2022-02-06] MEDS: aspirin 81 mg EC Tablet PO (08:25)
[2022-02-06] MEDS: cephALEXin 500 mg Capsule PO ×4 (08:25→20:57)
[2022-02-06] MEDS: nicotine 14 mg Patch 1 PATCH TRANSDERMA (08:26)
[2022-02-06] MEDS: ascorbic acid 500 mg Tablet PO (08:26)
[2022-02-06] MEDS: multivitamin therapeutic Tablet 1 TAB PO (08:26)
[2022-02-06] MEDS: quetiapine 100 mg Tablet PO (08:32)
[2022-02-06 14:00] VITALS: BP 138/84; PULSE 91; RESP 17; TEMP 36.6; O2SAT 94
--- NOTE | 2022-02-06 16:02 | W.PM.NPUPNS ---
Subjective NPU Subjective: Patient presents today with significant improvement with his headache/tooth ache. Antibiotics are working effectively. He reports that he is working with the treatment team for discharge options effectively. He reports he is stabilizing on the medication changes. We discussed the likelihood that he would discharge in the next 48 hours. Mental Status Exam MSE Comments: This is an obese white male in scrubs with improving grooming and eye contact. No abnormal movements except for resolving psychomotor retardation. Cooperative with exam in no acute distress. Speech was slightly decreased rate and volume. Mood described as better, affect congruent. Thought process organized, thought content: patient denies suicidal or homicidal ideation, there were no delusions reported or noted, he denied any auditory or visual hallucinations. Attention and concentration were intact and memory appeared unreliable but none were formally tested. He is alert and oriented times three. Insight and judgment appeared limited and impulse control appeared limited. Vitals/I&O/Wt Last Vital Signs Temp 97.7 F 02/06/22 06:00 Pulse 76 02/06/22 06:00 Resp 18 02/06/22 06:00 BP 124/72 02/06/22 06:00 Pulse Ox 96 02/06/22 06:00 O2 Del Method 02/05/22 21:00 Data NPU : 02/01/22 19:00 02/01/22 19:00 A&P Assessment and plan (1) Psychotic disorder due to psychoactive substance: Status: Acute (2) Methamphetamine abuse: Status: Acute (3) Suicidal ideation: Status: Acute (4) On combination antipsychotic drug therapy: Status: Acute Plan This is a 56-year-old possibly male with long history of mental health and addiction issues who presents much like his last admission with issues with noncompliance with follow up with suicidal ideation and auditory hallucinations.? ?1.? Continue current medication. Decreased seroquel to 500mg at night, and will add 100 mg in the morning. Also started on Keflex 500 mg 4 times daily for 7 days. ?2.? Continue every 15 minute checks for safety. ?3.? Encourage individual, group and milieu therapies. ?4.? Encourage sober living treatment after discharge at the highest level of care to which he is willing to commit. 5. Concern for malingering. Involuntary Hold Information 96 Hour Hold: 96 Hour Involuntary Admission: No Attestations NPU Medical Necessity Statement*: Inpatient hospitalization is medically necessary and the clinically appropriate intervention at this time.? We will initiate medications and make changes as indicated.? Likely length of stay for?1-3 days. Coding Level of Care Code Acute Grain Elevator Man for g Fwd Diagnoses Psychotic disorder due to psychoactive substance F19.959 Methamphetamine abuse F15.10 Suicidal ideation R45.851 On combination antipsychotic drug therapy Z79.899
[2022-02-06 19:48] VITALS: BP 163/91; PULSE 82; RESP 18; TEMP 36.9; O2SAT 96
[2022-02-06] MEDS: quetiapine 300 mg Tablet PO (20:58)
[2022-02-06] MEDS: quetiapine 100 mg Tablet 200 MG PO (21:03)
[2022-02-06 22:59] VITALS: PULSE 95; RESP 16; O2SAT 95
[2022-02-06] MEDS: albuterol 8 gm MDI 2 PUFF INHALATION (23:00)
[2022-02-07] MEDS: ibuprofen 600 mg Tablet PO ×2 (04:52→09:09)
[2022-02-07 06:00] VITALS: BP 130/82; PULSE 103; RESP 18; TEMP 36.4; O2SAT 93
[2022-02-07] MEDS: nicotine 14 mg Patch 1 PATCH TRANSDERMA (09:08)
[2022-02-07] MEDS: quetiapine 100 mg Tablet PO (09:09)
[2022-02-07] MEDS: aspirin 81 mg EC Tablet PO (09:09)
[2022-02-07] MEDS: ascorbic acid 500 mg Tablet PO (09:09)
[2022-02-07] MEDS: gabapentin 400 mg Capsule 800 MG PO ×3 (09:09→20:20)
[2022-02-07] MEDS: cephALEXin 500 mg Capsule PO ×4 (09:09→20:20)
[2022-02-07] MEDS: multivitamin therapeutic Tablet 1 TAB PO (09:10)
--- NOTE | 2022-02-07 09:11 | PC.NURSE ---
REFUSED SCHEDULED FLOMAX
[2022-02-07 11:05] VITALS: PULSE 91; RESP 17; O2SAT 95
[2022-02-07 14:00] VITALS: BP 156/88; PULSE 78; RESP 17; TEMP 36.5; O2SAT 97
--- NOTE | 2022-02-07 17:07 | P.NPUPN_ITS ---
Subjective NPU Subjective: Patient presents today reporting that he has been feeling much better on multiple fronts. We discussed discharge planning and he talked about the possibility of discharge on Friday. We discussed that we have connected him with the [facility] program and they will be up to work with him and that he should be able to make it through the weekend with their assistance without having his check that he will receive on Friday which he is waiting for. We discussed that we would make sure he has medications of the continues to improve. He reported eating and sleeping better but discussed the possibility of taking the Seroquel back up to 70 mg at night, but we agreed we would discuss in the morning after he described how he feels. Mental Status Exam MSE Comments: This is an obese white male in scrubs with improving grooming and eye contact. No abnormal movements except for resolving psychomotor kristofer rdation. Cooperative with exam in no acute distress. Speech was slightly decreased rate and volume. Mood described as pretty good, affect congruent. Thought process organized, thought content: patient denies suicidal or homicidal ideation, there were no delusions reported or noted, he denied any auditory or visual hallucinations. Attention and concentration were intact and memory appeared unreliable but none were formally tested. He is alert and oriented times three. Insight and judgment appeared limited, but improving and impulse control appeared limited. Vitals/I&O/Wt Last Vital Signs Temp 98.0 F 02/07/22 19:45 Pulse 72 02/07/22 19:45 Resp 18 02/07/22 19:45 BP 129/85 02/07/22 19:45 Pulse Ox 95 02/07/22 19:45 O2 Del Method 02/07/22 17:37 Data NPU : 02/01/22 19:00 02/01/22 19:00 A&P Assessment and plan (1) Psychotic disorder due to psychoactive substance: Status: Acute (2) Methamphetamine abuse: Status: Acute (3) Suicidal ideation: Status: Acute (4) On combination antipsychotic drug therapy: Status: Acute Plan This is a 56-year-old possibly male with long history of mental health and addiction issues who presents much like his last admission with issues with noncompliance with follow up with suicidal ideation and auditory hallucinations.? ?1.? Continue current medication. Decreased seroquel to 500mg at night, and will add 100 mg in the morning. Also started on Keflex 500 mg 4 times daily for 7 days. ?2.? Continue every 15 minute checks for safety. ?3.? Encourage individual, group and milieu therapies. ?4.? Encourage sober living treatment after discharge at the highest level of care to which he is willing to commit. 5. Concern for malingering. 6. Plan for meeting with [facility] in the morning and discharge after. Involuntary Hold Information 2 96 Hour Hold: 96 Hour Involuntary Admission: No Attestations NPU Medical Necessity Statement*: Inpatient hospitalization is medically necessary and the clinically appropriate intervention at this time.? We will initiate medications and make changes as indicated.? Tentative plan for discharge tomorrow. Coding Level of Care Code Acute Plate Grainer for [facility] Diagnoses Psychotic disorder due to psychoactive substance F19.959 Methamphetamine abuse F15.10 Suicidal ideation R45.851 On combination antipsychotic drug therapy Z79.894
[2022-02-07 17:37] VITALS: PULSE 81; RESP 17; O2SAT 97
[2022-02-07 19:45] VITALS: BP 129/85; PULSE 72; RESP 18; TEMP 36.7; O2SAT 95
[2022-02-07] MEDS: quetiapine 100 mg Tablet 200 MG PO (20:19)
[2022-02-07] MEDS: quetiapine 300 mg Tablet PO (20:19)
[2022-02-07] MEDS: hydrocortisone 1% cream 28 gm 1 APPLIC TOPICAL (22:23)
[2022-02-08] MEDS: ibuprofen 600 mg Tablet PO (02:41)
[2022-02-08] MEDS: benzocaine 20% 7 gm 1 APPLIC MUCOUS MEM (02:42)
[2022-02-08 06:00] VITALS: BP 136/78; PULSE 100; RESP 18; TEMP 36.6; O2SAT 96
[2022-02-08] MEDS: cephALEXin 500 mg Capsule PO (08:59)
[2022-02-08] MEDS: aspirin 81 mg EC Tablet PO (08:59)
[2022-02-08] MEDS: quetiapine 100 mg Tablet PO (09:00)
[2022-02-08] MEDS: tamsulosin 0.4 mg Capsule PO (09:00)
[2022-02-08] MEDS: multivitamin therapeutic Tablet 1 TAB PO (09:00)
[2022-02-08] MEDS: ascorbic acid 500 mg Tablet PO (09:00)
[2022-02-08] MEDS: gabapentin 400 mg Capsule 800 MG PO (09:04)
[2022-02-08 10:17] VITALS: PULSE 89; RESP 18; O2SAT 96
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
[2022-02-08 10:56] VITALS: PULSE 89; RESP 18; O2SAT 96
[2022-02-08 10:59] VITALS: PULSE 89; RESP 20; O2SAT 97
--- NOTE | 2022-02-08 11:16 | PC.NURSE ---
pt verbalized understanding of all dc instructions after reading through them with this nurse. 02/08/22 [id number]
== END 2022-02-08 11:15 | disposition home or self-care (01) | DRG 897 ==
LOC: ER 02-02 00:23 → NP 02-02 00:24
PROVIDERS: Admitting Provider Psychiatry & Neurology Psychiatry; Emergency Provider Registered Nurse; Visit Provider Psychiatry & Neurology Psychiatry
DX: F15.251 Other stimulant dependence with stimulant-induced psychotic disorder with hallucinations (principal); R45.851 Suicidal ideations; F15.20 Other stimulant dependence, uncomplicated; F20.9 Schizophrenia, unspecified; Z91.120 Patient's intentional underdosing of medication regimen due to financial hardship; F12.20 Cannabis dependence, uncomplicated; J44.9 Chronic obstructive pulmonary disease, unspecified; F17.210 Nicotine dependence, cigarettes, uncomplicated; Z79.82 Long term (current) use of aspirin; K04.7 Periapical abscess without sinus
CPT/HCPCS: 36415; 71046; 80053; 80306; 80307; 81003; 84484; 85025; 87426; 93005; 94640; 94760; 97150; 97165; 99285; J3535

== ENCOUNTER 2022-02-21 10:56 | Emergency (ER) | payer MEDICAID, SELFPAY ==
[2022-02-21 11:03] VITALS: BP 127/88; PULSE 78; RESP 16; TEMP 36.1; O2SAT 97
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
[2022-02-21 11:50] LABS: Basophils # 0.1 10^3/uL (0.0-0.1); Basophils % 0.8 %; Eosinophils # 0.1 10^3/uL (0.0-0.8); Eosinophils % 0.8 %; Hematocrit 46.2 % (42.0-52.0); Hemoglobin 15.1 g/dL (11.7-16.6); Lymphocytes # 1.7 10^3/uL (0.8-4.8); Lymphocytes % 24.2 %; Mean Corpuscular HGB Conc 32.7 g/dL (30.0-36.0); Mean Corpuscular Hemoglobin 29.3 pg (28.0-34.0); Mean Corpuscular Volume 89.5 fl (80-94); Mean Platelet Volume 8.7 fL (7.4-10.4); Monocytes # 0.7 10^3/uL (0.2-0.9); Monocytes % 9.9 %; Neutrophils # 4.56 10^3/uL (1.8-7.7); Neutrophils % 63.9 %; Nucleated Red Blood Cells % 0 %; Platelet Count 337 10^3/cmm (130-400); Red Blood Count 5.16 10^6/uL (4.1-5.3); Red Cell Distribution Width 14.2 % (12.1-15.1); White Blood Count 7.2 10^3/uL (4.0-10.0)
[2022-02-21 12:16] LABS: Alanine Aminotransferase 23 U/L (0-41); Albumin Level 4.7 g/dL (3.5-5.2); Alkaline Phosphatase 109 IU/L (40-130); Anion Gap 14.3 (5-19); Aspartate Amino Transferase 15 U/L (0-40); Blood Urea Nitrogen 22 mg/dL (6-20); Calcium 9.5 mg/dL (8.5-10.5); Carbon Dioxide 28 mmol/L (22-29); Chloride 101 mmol/L (98-107); Glucose 94 mg/dL (65-115); Osmolality Calculated 291 mOsm/kg (285-295); Potassium 4.3 mmol/L (3.5-5.1); Sodium 139 mmol/L (136-145); Total Bilirubin 0.3 mg/dL (0.15-1.2); Total Protein 7.7 g/dL (6.6-8.7)
[2022-02-21 12:18] LABS: Acetaminophen < 5.0 ug/mL (10-30); Alcohol Level < 10 mg/dL (0-10); Salicylate < 0.3 mg/dL (3-10)
[2022-02-21 13:08] VITALS: BP 124/82; PULSE 79; RESP 16; O2SAT 126
== END 2022-02-21 13:22 | disposition home or self-care (01) ==
PROVIDERS: Emergency Medicine; Emergency Provider Emergency Medicine
DX: F32.A Depression, unspecified (principal); Z79.82 Long term (current) use of aspirin; I50.9 Heart failure, unspecified; J44.9 Chronic obstructive pulmonary disease, unspecified; Z87.891 Personal history of nicotine dependence
CPT/HCPCS: 80053; 80307; 85025; 99283

== ENCOUNTER 2022-03-13 13:58 | Emergency (ER) | payer MEDICAID, SELFPAY ==
[2022-03-13 14:06] VITALS: BP 115/55; PULSE 90; RESP 18; TEMP 36.7; O2SAT 96; BMI 30.5
--- NOTE | 2022-03-13 14:21 | XR_ITS ---
WS: [id number] Exam: XR chest 1V portable [id number] Date/Time of Exam: 03/13/2022 2:21 PM Reason For Exam: cough, sob; hx copd Comparison 02/01/2022. The lungs are clear and fully expanded. There is cardiac enlargement unchanged. No obvious pleural ef fusion. Bony structures are intact. Anchoring screw in the right humeral head. XR/XR chest 1V portable [id number] IMPRESSION: 1. Cardiac enlargement unchanged. 2. No acute cardiopulmonary process.
[2022-03-13 14:24] VITALS: BP 131/89; PULSE 83; RESP 21
--- NOTE | 2022-03-13 14:30 | W.ED.SOB ---
HPI - SOB/Dyspnea General: Chief Complaint: Shortness of Breath/Dyspnea Stated Complaint: SOB Time Seen by Provider: 03/13/22 14:21 Source: patient Mode of arrival: ambulatory Limitations: no limitations History of Present Illness: HPI Narrative: Patient is a 57-year-old male who is well-known to our emergency department here for complaints of cough and feeling short of breath. Patient tells me he has a history of asthma. He states he is out of his albuterol inhaler. Patient has been seen several times in our facility for complaints of shortness of breath related to COPD/asthma. Patient has not been running fevers. He does not complain of any chest pain. Patient has a longstanding history of noncompliance. He states he is never followed up with anybody outside of an ER setting. MD elicited complaint: shortness of breath and cough Pertinent past history: COPD Onset (ago): day(s) Timing: constant Severity: moderate Exacerbating factors: nothing Relieving factors: bronchodilators (pt out of his albuterol inhaler) Known history of: COPD Associated symptoms: Reports other (sore throat); Deny abdominal pain, chest congestion, chest pain, fever(s), hemoptysis, lightheadedness, orthopnea, palpitations or syncope Treatment prior to arrival: none Related Data: Home oxygen amount: none Review of Systems Const: Denies: fever(s), chills, body aches, fatigue or malaise Card: Denies: chest pain, palpitations, irregular heart rhythm, edema, swelling of feet/ankles, lightheadedness, syncope, pre-syncope, dyspnea on exertion, orthopnea, leg pain with exertion or acrocyanosis Resp: Reports: dyspnea, productive cough and wheezing; Denies: pain on inspiration, change in phlegm color, hemoptysis or chest congestion GI: Denies: abdominal pain Musc: Denies: neck pain or back pain Skin/Breast: Denies: rash Neuro: Denies: headache(s) PFS ED PFSH: Medical History Asthma Cannabis dependence, uncomplicated CHF (congestive heart failure) COPD (chronic obstructive pulmonary disease) Homeless single person On combination antipsychotic drug therapy Other stimulant dependence, uncomplicated Psychiatric care Suicidal ideation Surgical History Status post club foot correction at Family History Mother Psychiatric illness Schizophrenia Social History Smoking and tobacco status: former smoker Smoking risk assessment/counseling performed?: Yes Tobacco counseling given: counseling >3 minutes Alcohol intake: never Household members: other Details: roommate x 1 Physical Exam Const: COMMON NORMALS: no acute distress, patient oriented x3, no limitations and alert GENERAL APPEARANCE: cooperative ORIENTATION/CONSCIOUSNESS: Yes awake, Yes oriented to person, Yes oriented to place and Yes oriented to time HENMT: COMMON NORMALS: normocephalic and atraumatic HEAD & SCALP: normal to inspection, normocephalic and atraumatic FACE & SINUS: normal facial exam THROAT: posterior oropharynx normal, tonsils normal and uvula midline Chest: COMMONS NORMALS: normal inspection of the chest and normal palpation of entire chest wall Resp: COMMON NORMALS: normal respiratory effort EFFORT & INSPECTION: No tachypneic, No respiratory distress, No labored, No grunting, No stridor and Yes Actively coughing AUSCULTATION: wheezes throughout Cardio: COMMON NORMALS: regular rate and regular rhythm RATE: regular rate RHYTHM: regular rhythm GI: COMMON NORMALS: Normal to inspection, nondistended, normoactive bowel sounds present and Soft to palpation INSPECTION: Yes normal to inspection, No Anasarca and No abdominal distension PALPATION: Yes Soft to palpation Extremity: COMMON NORMALS: no joint enlargement, no clubbing, cyanosis or edema, no calf tenderness and no pedal edema Neuro: YOSHI COMA SCALE: document GCS findings [place] coma scale eye opening: Spontaneous Yoshi coma scale verbal response: Orientated Yoshi coma scale motor response: Obey commands Yoshi coma scale total score: 15 COMMON NORMALS: patient oriented x3 SENSORIUM/ORIENTATION: Yes alert, Yes oriented to person, Yes oriented to place and Yes oriented to time Skin: COMMON NORMALS: no rashes or lesions noted GENERAL SKIN EXAM: no rashes or lesions noted Course Vital Signs: Vital signs: Vital Signs Temperature 98.0 F 03/13/22 14:06 Pulse Rate 82 03/13/22 14:47 Respiratory Rate 21 H 03/13/22 14:43 Blood Pressure 131/89 03/13/22 14:24 Pulse Oximetry 95 03/13/22 14:43 Oxygen Delivery Me thod 03/13/22 14:43 MDM - SOB/Dyspnea Medical Decision Making Patient's vitals are normal. He had diffuse wheezing upon auscultation on arrival. He has been out of his albuterol inhaler. Lung sounds/breathing improved after DuoNeb and he states he feels better. CXR is stable. Clinically does not appear fluid overloaded. Will go ahead and collect Coronavirus PCR-if positive he will need Paxlovid given his risk factors. Will refill prescription for his inhaler. He is requesting a new PCP as he does not like the one he has. Also will place referral to pulmonology for PFTs so they optimize patient's treatment/medications. Lab Data Labs/Radiology: Radiology Impressions Chest X-Ray 03/13/22 14:21 IMPRESSION: 1. Cardiac enlargement unchanged. 2. No acute cardiopulmonary process. Discharge Plan Discharge Patient Disposition: Home Clinical Impression: COPD (chronic obstructive pulmonary disease) Qualifiers: COPD type: unspecified COPD Qualified Code(s): J44.9 - Chronic obstructive pulmonary disease, unspecified Condition: Stable Prescriptions: Continued albuterol sulfate 90 mcg/actuation HFA aerosol inhaler 2 puff inhalation Q6H PRN (Reason: shortness of breath or wheezing) 30 Days Qty: 1 1RF No Action ibuprofen 600 mg tablet 600 mg PO Q8H PRN (Reason: pain) Qty: 30 0RF quetiapine [Seroquel] 300 mg tablet 600 mg PO BEDTIME 30 Days Qty: 60 1RF aspirin 81 mg Tablet,Delayed Release (Dr/Ec) 81 mg PO QAM 30 Days Qty: 30 1RF ascorbic acid (vitamin C) [Vitamin C] 500 mg Tablet 500 mg PO QAM 30 Days Qty: 30 1RF gabapentin 800 mg tablet 800 mg PO TID 30 Days Qty: 90 1RF Multiple Vitamins Tablet 1 tab PO QAM quetiapine 100 mg tablet 100 mg PO QAM tamsulosin 0.4 mg capsule 0.4 mg PO DAILY PRN (Reason: unknown) Discharge Orders: Discharge ED (Routine); Ordered 03/13/22 Ordered By: Ankita Miguel Coding Level of Care Code ED Speech And Language Specialist for Chg Fwd Exam Comprehensive
[2022-03-13 14:43] VITALS: PULSE 81; RESP 21; O2SAT 95
[2022-03-13] MEDS: ipratropium-albuterol 3 mL Neb INHALATION (14:43)
[2022-03-13 14:47] VITALS: PULSE 82
[2022-03-13 15:07] VITALS: BP 138/80; PULSE 78; RESP 14; O2SAT 95
[2022-03-13 19:09] LABS: Adenovirus Not Detected (NOT DETECT); Chlamydia Pneumoniae Not Detected (NOT DETECT); Coronavirus 229E,HKU1,NL63,OC4 Not Detected (NOT DETECT); Human Metapneumovirus Not Detected (NOT DETECT); Human Rhinovirus/Enterovirus Detected (NOT DETECT); Influenza A Not Detected (NOT DETECT); Influenza A H1 Not Detected (NOT DETECT); Influenza A H1-2009 Not Detected (NOT DETECT); Influenza A H3 Not Detected (NOT DETECT); Influenza B Not Detected (NOT DETECT); Mycoplasma Pneumoniae Not Detected (NOT DETECT); Parainfluenza Virus Type 1 Not Detected (NOT DETECT); Parainfluenza Virus Type 2 Not Detected (NOT DETECT); Parainfluenza Virus Type 3 Not Detected (NOT DETECT); Parainfluenza Virus Type 4 Not Detected (NOT DETECT); Respiratory Syncytial Virus A Not Detected (NOT DETECT); Respiratory Syncytial Virus B Not Detected (NOT DETECT); SARS-COV-2 Not Detected (NOT DETECT)
[2022-03-13 19:21] LABS: Human Metapneumovirus Not Detected (NOT DETECT); Human Rhinovirus/Enterovirus Detected (NOT DETECT); Results from Genmark
--- NOTE | 2022-03-14 12:16 | DCPLANNER ---
Addendum entered by Amy Jacome 04/11/22 11:18: Patient had an appointment scheduled with [facility] - patient did not attend appointment. Addendum entered by Amy Jacome 03/21/22 08:04: Patient has a follow up appointment scheduled for Friday, April 10, 2022 at 10:[address] Haskins at [facility]. Clinic will call patient with appointment information. Original Note: scrum project manager had message to schedule a follow up appointment for patient with pulmonology. scrum project manager sent patients information to the front office staff at [facility]. Patients information will be printed and reviewed. Clinic will call patient with appointment information.
--- NOTE | 2022-03-14 12:43 | DCPLANNER ---
general manager land department had message to speak with patient about getting established with his primary care physician. general manager land department was unable to speak with patient or leave a voicemail for patient.
== END 2022-03-13 15:12 | disposition home or self-care (01) ==
PROVIDERS: Emergency Provider Physician Assistant
DX: J44.9 Chronic obstructive pulmonary disease, unspecified (principal); Z79.82 Long term (current) use of aspirin; I50.9 Heart failure, unspecified; Z87.891 Personal history of nicotine dependence; Z20.822 Contact with and (suspected) exposure to COVID-19
CPT/HCPCS: 71045; 87635; 87801; 94640; 99284

== ENCOUNTER 2022-03-27 17:44 | Emergency (ER) | payer MEDICAID, SELFPAY ==
[2022-03-27] VITALS (8 sets, daily range): BP systolic 102–141; BP diastolic 56–94; PULSE 72–87; RESP 17–22; TEMP 36.8–36.9; O2SAT 95–98; BMI 30.5
--- NOTE | 2022-03-27 18:17 | XRR_ITS ---
PROCEDURE INFORMATION: Exam: XR Chest Exam date and time: 03/27/2022 6:21 PM Age: 57 years old Clinical indication: Shortness of breath; Additional info: Dyspnea TECHNIQUE: Imaging protocol: Radiologic exam of the chest. Views: 1 view. COMPARISON: CR XR chest 1V portable [id number] 03/13/2022 2:29 PM FINDINGS: Lungs: Unremarkable. No consolidation. Pleural spaces: Unremarkable. No pleural effusion. No pneumothorax. Heart/Mediastinum: Borderline cardiac enlargement. Bones/joints: Right proximal humerus surgical anchors are present. XR/XR chest 1V portable [id number] IMPRESSION: Negative exam.
--- NOTE | 2022-03-27 18:28 | XRR_ITS ---
PROCEDURE INFORMATION: Exam: XR Right Shoulder Exam date and time: 03/27/2022 7:16 PM Age: 57 years old Clinical indication: Injury or trauma; Fall; Blunt trauma (contusions or hematomas); Shoulder; Right; Prior surgery; Additional info: Fall injury TECHNIQUE: Imaging protocol: Radiologic exam of the Right shoulder. Views: 2 or more views. COMPARISON: CR (CHEST, ) 03/27/2022 6:21 PM FINDINGS: Bones/joints: Widening of acromioclavicular joint which is likely postsurgical. Moderate narrowing of subacromial space. Surgical anchor within the humeral head. No fractures. No joint dislocation. Soft tissues: Normal. XR/XR shoulder RT min 2V* [id number] IMPRESSION: 1. No acute osseous abnormality of the right shoulder. 2. Chronic acromioclavicular joint space widening which may be postsurgical.
--- NOTE | 2022-03-27 18:28 | XRR_ITS ---
PROCEDURE INFORMATION: Exam: XR Right Elbow Exam date and time: 03/27/2022 7:16 PM Age: 57 years old Clinical indication: Injury or trauma; Fall; Blunt trauma (contusions or hematomas); Elbow; Right; Additional info: Fall injury TECHNIQUE: Imaging protocol: Radiologic exam of the Right elbow. Views: 3 or more views. COMPARISON: No relevant prior studies available. FINDINGS: Bones/joints: Small insertional enthesophyte of the proximal olecranon. Normal joint alignment. Negative for joint effusion. Negative for fracture. Soft tissues: Normal. XR/XR elbow RT min 3V* [id number] IMPRESSION: No acute osseous abnormality identified.
--- NOTE | 2022-03-27 18:30 | ED_ITS ---
HPI - SOB/Dyspnea General: Chief Complaint: Shortness of Breath/Dyspnea Stated Complaint: SOB\ Rt Arm Time Seen by Provider: 03/27/22 18:18 History of Present Illness: HPI Narrative: Pt is a 57 y/o male who comes to the ED with right arm pain and SOB. Patient has a history of COPD and CHF. Patient's right arm pain started a week ago after he had a fall. Today he went to start up his lawnmower and when he pulled the cord he felt pain in his right shoulder and elbow. He is now having pain with range of motion in right arm. Patient was seen here for shortness of breath on March 13. He endorses having worsening shortness of breath and wheezing over the past several days. He has an inhaler at home that he uses. Shortness of breath worsens when laying flat. Denies any chest pain. Associated symptoms: Reports extremity pain (Right shoulder and right elbow); Deny abdominal pain, chest pain, fever(s), nausea, orthopnea, palpitations or vomiting Review of Systems 2 Const: Denies: fever(s), chills or fatigue Eyes: Denies: change in vision or eye discomfort ENMT: Denies: throat pain, odynophagia, nasal discharge or nasal congestion Card: Denies: chest pain, palpitations, edema, swelling of feet/ankles, dyspnea on exertion or orthopnea Resp: Reports: dyspnea and non-productive cough; Denies: productive cough GI: Denies: abdominal pain, nausea, vomiting, diarrhea, constipation or h ematochezia : Denies: flank pain, difficulty urinating, dysuria or hematuria Musc: Reports: extremity pain (Right shoulder and right elbow); Denies: neck pain, back pain or extremity swelling Skin/Breast: Denies: rash or new lesions Neuro: Denies: headache(s), numbness in extremities or weakness in extremities PFS ED PFSH: Medical History Asthma Cannabis dependence, uncomplicated CHF (congestive heart failure) COPD (chronic obstructive pulmonary disease) Homeless single person On combination antipsychotic drug therapy Other stimulant dependence, uncomplicated Psychiatric care Suicidal ideation Surgical History Status post club foot correction at Family History Mother Psychiatric illness Schizophrenia Social History Smoking and tobacco status: former smoker Smoking risk assessment/counseling performed?: Yes Tobacco counseling given: counseling >3 minutes Alcohol intake: never Household members: other Details: roommate x 1 Physical Exam Const: COMMON NORMALS: patient oriented x3 and alert GENERAL APPEARANCE: cooperative HENMT: COMMON NORMALS: normocephalic HEAD & SCALP: normocephalic MOUTH: Normal oral and palatal mucosa present THROAT: posterior oropharynx normal and uvula midline Neck/C-Spine: COMMON NORMALS: supple GENERAL: Yes normal visual inspection Resp: COMMON NORMALS: normal respiratory effort, No retractions and No use of accessory muscles AUSCULTATION: wheezes expiratory wheezes and lower bilaterally Cardio: COMMON NORMALS: regular rate, regular rhythm, S1 normal heart sound present, S2 normal heart sound present, No gallops present (Cardio), No clicks present (Cardio), No murmurs present (Cardio) and Peripheral pulses 2+ throughout RATE: regular rate RHYTHM: regular rhythm HEART SOUNDS: S1 normal heart sound present and S2 normal heart sound present PERIPHERAL PULSE S: Peripheral pulses 2+ throughout GI: COMMON NORMALS: Normal to inspection, nondistended, normoactive bowel sounds present, Soft to palpation, non-tender and no masses PALPATION: Yes Soft to palpation : COMMON NORMALS: Yes no CVA tenderness BLADDER/KIDNEY EXAM: Yes no CVA tenderness Back/Pelvis: COMMON NORMALS: no CVA tenderness Extremity: COMMON NORMALS: normal to inspection NARRATIVE EXTREMITY EXAM: Right shoulder?limited range of motion due to pain. Neurovascular intact distally. Tenderness over AC joint region of shoulder and muscle on right upper arm. GENERAL: Yes normal exam except as noted Neuro: COMMON NORMALS: patient oriented x3 SENSORIUM/ORIENTATION: Yes alert GAIT: Yes Normal gait present Skin: GENERAL SKIN EXAM: dry skin Course Vital Signs: Vital signs: Vital Signs Temperature 98.2 F 03/27/22 22:08 Pulse Rate 85 03/27/22 22:08 Respiratory Rate 17 03/27/22 22:08 Blood Pressure 137/94 03/27/22 22:08 Pulse Oximetry 97 03/27/22 22:08 Oxygen Delivery Me thod 03/27/22 22:00 MDM - SOB/Dyspnea Medical Decision Making Pt is a 57 y/o male who comes to the ED with right arm pain and SOB. Patient has a history of COPD and CHF. Patient's right arm pain started a week ago aft er he had a fall. Today he went to start up his lawnmower and when he pulled the cord he felt pain in his right shoulder and elbow. He is now having pain with range of motion in right arm. Patient was seen here for shortness of breath on March 13. He endorses having worsening shortness of breath and wheezing over the past several days. Vitals are stable. Patient has wheezing and lower lung miles bilaterally. Right shoulder?limited range of motion due to pain. Some tenderness over AC joint and muscle in the right upper arm. Rest of exam is benign. Labs were unremarkable. Troponins negative. EKG showed normal sinus rhythm with no ST segment elevation or depression seen. Chest x- ray shows no acute findings. Right shoulder and right elbow x-ray showed no acute findings. Patient was given Solu-Medrol and DuoNeb breathing treatment here in the ED. He was stable for discharge home and diagnosed with COPD and muscle strain of right upper arm. Patient was put in a sling and discharged home with a prescription for antibiotic, steroid, albuterol inhaler and ibuprofen. Follow-up with PCP within the next week for reevaluation. Patient understood and agreed with plan. Lab Data I reviewed the patient's lab results. : 03/27/22 18:49 03/27/22 18:49 Labs/Radiology: Radiology Impressions Chest X-Ray 03/27/22 18:17 IMPRESSION: Negative exam. Elbow X-Ray 03/27/22 18:28 IMPRESSION: No acute osseous abnormality identified. Shoulder X-Ray 03/27/22 18:28 IMPRESSION: 1. No acute osseous abnormality of the right shoulder. 2. Chronic acromioclavicular joint space widening which may be postsurgical. Laboratory Results WBC 7.8 10^3/uL (4.0-10.0) 03/27/22 18:49 RBC 4.40 10^6/uL (4.1-5.3) 03/27/22 18:49 Hgb 13.0 g/dL (11.7-16.6) 03/27/22 18:49 Hct 40.5 % (42.0-52.0) L 03/27/22 18:49 MCV 92.0 fl (80-94) 03/27/22 18:49 MCH 29.5 pg (28.0-34.0) 03/27/22 18:49 MCHC 32.1 g/dL (30.0-36.0) 03/27/22 18:49 RDW 14.0 % (12.1-15.1) 03/27/22 18:49 Plt Count 292 10^3/cmm (130-400) 03/27/22 18:49 MPV 8.5 fL (7.4-10.4) 03/27/22 18:49 Neut % (Auto) 66.6 % 03/27/22 18:49 Lymph % (Auto) 21.5 % 03/27/22 18:49 [place] % (Auto) 8.3 % 03/27/22 18:49 Eos % (Auto) 2.3 % 03/27/22 18:49 Baso % (Auto) 0.8 % 03/27/22 18:49 Neut # (Auto) 5.19 10^3/uL (1.8-7.7) 03/27/22 18:49 Lymph # (Auto) 1.7 10^3/uL (0.8-4.8) 03/27/22 18:49 [place] # (Auto) 0.7 10^3/uL (0.2-0.9) 03/27/22 18:49 Eos # (Auto) 0.2 10^3/uL (0.0-0.8) 03/27/22 18:49 Baso # (Auto) 0.1 10^3/uL (0.0-0.1) 03/27/22 18:49 Nucleated RBC % (auto) 0 % 03/27/22 18:49 Nucleated RBCs # 0.0 /100WBC 03/27/22 18:49 Sodium 138 mmol/L (136-145) 03/27/22 18:49 Potassium 4.5 mmol/L (3.5-5.1) 03/27/22 18:49 Chloride 101 mmol/L (98-107) 03/27/22 18:49 Carbon Dioxide 26 mmol/L (22-29) 03/27/22 18:49 Anion Gap 15.5 (5-19) 03/27/22 18:49 BUN 16 mg/dL (6-20) 03/27/22 18:49 Creatinine 1.1 mg/dL (0.7-1.2) 03/27/22 18:49 GFR Calculation 69.0 mL/min (90-130) L 03/27/22 18:49 Glucose 140 mg/dL (65-115) H 03/27/22 18:49 Calculated Osmolality 289 mOsm/kg (285-295) 03/27/22 18:49 Calcium 8.8 mg/dL (8.5-10.5) 03/27/22 18:49 Troponin T Baseline 21 ng/L (0-15) H 03/27/22 18:49 Troponin T 120 Minute 19.40 ng/L (0-15) H 03/27/22 20:37 Delta Troponin T -1.60 ABS# (0-10) L 03/27/22 20:37 NT-Pro-B Natriuret Pep 759 pg/mL (0-125) H 03/27/22 18:49 EKG Data EKG 1: EKG Interpretation Date: 03/27/22 Interpretation: Sinus rhythm, no ST segment ovation or depression seen. 77 bpm. Discharge Plan Discharge Patient Disposition: Home Clinical Impression: COPD (chronic obstructive pulmonary disease) Qualifiers: COPD type: chronic bronchitis Chronic bronchitis type: unspecified Qualified Code(s): J42 - Unspecified chronic bronchitis Muscle strain of right upper arm Qualifiers: Encounter type: initial encounter Qualified Code(s): S46.911A - Strain of unspecified muscle, fascia and tendon at shoulder and upper arm level, right arm, initial encounter Condition: Stable Prescriptions: New azithromycin 250 mg tablet See Rx Instructions .ROUTE .COMPLEX Qty: 6 0RF Rx Instructions: For 250 mg dose pack: take 500 mg today (day 1), then 250 mg for 4 days (days 2-5) Medrol (Abraham) 4 mg tablets,dose pack See Rx Instructions .ROUTE .COMPLEX Qty: 21 0RF Rx Instructions: orally per package directions albuterol sulfate 90 mcg/actuation HFA aerosol inhaler 2 inh inhalation Q6H PRN (Reason: shortness of breath or wheezing) Qty: 8.5 0RF ibuprofen 600 mg tablet 600 mg PO Q8H PRN (Reason: pain) Qty: 20 0RF No Action albuterol sulfate 90 mcg/actuation HFA aerosol inhaler 2 puff inhalation Q6H PRN (Reason: shortness of breath or wheezing) 30 Days Qty: 1 1RF ibuprofen 600 mg tablet 600 mg PO Q8H PRN (Reason: pain) Qty: 30 0RF quetiapine [Seroquel] 300 mg tablet 600 mg PO BEDTIME 30 Days Qty: 60 1RF aspirin 81 mg Tablet,Delayed Release (Dr/Ec) 81 mg PO QAM 30 Days Qty: 30 1RF ascorbic acid (vitamin C) [Vitamin C] 500 mg Tablet 500 mg PO QAM 30 Days Qty: 30 1RF gabapentin 800 mg tablet 800 mg PO TID 30 Days Qty: 90 1RF tamsulosin 0.4 mg capsule 0.4 mg PO DAILY Discharge Orders: Discharge ED (Routine); Ordered 03/27/22 Ordered By: Shyam Delacruz Discharge Diet: Regular Discharge Activity: Limit activity as instructed Patient Instructions: Muscle Strain (ED), COPD (Chronic Obstructive Pulmonary Disease) (DC) Activity Restrictions/Additional Instructions: Follow-up with medical provider as directed in the next 5 to 7 days reevaluation. Wear shoulder sling for the next 2 to 3 days to allow right arm to rest and heal. Make sure to take arm out of sling multiple times a day and do some range of motion exercises to prevent frozen shoulder. Take medications as prescribed. Return to the ER or your medical provider if condition worsens. Please read and understand discharge instructions. Thank you for choosing [facility] for your healthcare needs today. Please realize this is an emergency room and that we are providing you with a medical screening exam and this may not be complete and all inclusive of all the testing and or work up that you may need to determine your ailment or severity of your illness. It is very important that you follow up as instructed or that you return to the Emergency Department should you have concerns or if your condition changes or worsens in any way. Coding Level of Care Code ED Lab Manager for [facility] Exam Comprehensive
[2022-03-27 18:59] LABS: Basophils # 0.1 10^3/uL (0.0-0.1); Basophils % 0.8 %; Eosinophils # 0.2 10^3/uL (0.0-0.8); Eosinophils % 2.3 %; Hematocrit 40.5 % (42.0-52.0); Lymphocytes # 1.7 10^3/uL (0.8-4.8); Lymphocytes % 21.5 %; Mean Corpuscular HGB Conc 32.1 g/dL (30.0-36.0); Mean Corpuscular Hemoglobin 29.5 pg (28.0-34.0); Mean Platelet Volume 8.5 fL (7.4-10.4); Monocytes # 0.7 10^3/uL (0.2-0.9); Monocytes % 8.3 %; Neutrophils # 5.19 10^3/uL (1.8-7.7); Neutrophils % 66.6 %; Nucleated Red Blood Cells % 0 %; Platelet Count 292 10^3/cmm (130-400); White Blood Count 7.8 10^3/uL (4.0-10.0)
[2022-03-27] MEDS: ipratropium-albuterol 3 mL Neb 6 ML INHALATION (18:59)
[2022-03-27 19:15] LABS: Troponin(5th) Baseline 21 ng/L (0-15)
--- NOTE | 2022-03-27 19:24 | PC.NURSE ---
Patient c/o right arm pain, states he hurt it at work on Friday and was weedeating yesterday at home and feels he pulled something in that shoulder, reports having chronic pain since he was a kid and when his pain escalates he has trouble breathing
[2022-03-27 19:35] LABS: Anion Gap 15.5 (5-19); Blood Urea Nitrogen 16 mg/dL (6-20); Calcium 8.8 mg/dL (8.5-10.5); Carbon Dioxide 26 mmol/L (22-29); Chloride 101 mmol/L (98-107); Glucose 140 mg/dL (65-115); Osmolality Calculated 289 mOsm/kg (285-295); Potassium 4.5 mmol/L (3.5-5.1); Sodium 138 mmol/L (136-145)
--- NOTE | 2022-03-27 19:41 | ECG_ITS ---
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 Measurements Intervals [place] Rate: 77 P: 60 NV: 174 QRS: 35 QRSD: 101 T: 46 QT: 413 QTc: 470 Interpretive Statements SINUS RHYTHM Compared to ECG 02/01/2022 14:55:47 No significant changes Electronically Signed On 03-28-2022 10:42:06 CDT by Alexis Adan M.D. [id number]
[2022-03-27 20:02] LABS: NT Pro B Type Natriuretic Pept 759 pg/mL (0-125)
== END 2022-03-27 22:16 | disposition home or self-care (01) ==
PROVIDERS: Emergency Medicine; Emergency Provider Physician Assistant
DX: J42 Unspecified chronic bronchitis (principal); I50.9 Heart failure, unspecified; S46.911A Strain of unspecified muscle, fascia and tendon at shoulder and upper arm level, right arm, initial encounter; X50.3XXA Overexertion from repetitive movements, initial encounter
CPT/HCPCS: 36415; 71045; 73030; 73080; 80048; 83880; 84484; 85025; 93005; 94640; 96374; 99285; J2930

== ENCOUNTER 2022-04-01 10:14 | Emergency (ER) | payer MEDICAID, SELFPAY ==
[2022-04-01 10:23] VITALS: BP 133/84; PULSE 95; RESP 18; TEMP 36.6; O2SAT 95; BMI 30.5
--- NOTE | 2022-04-01 10:32 | ED_ITS ---
HPI - Dental/Oral General: Chief complaint: Dental/Oral Stated complaint: Toothpain Time Seen by Provider: 04/01/22 10:28 Source: patient Mode of arrival: ambulatory Limitations: no limitations History of Present Illness: 37-year-old male has a history of poor dentition he states been having some left lower dental pain over the last week he states has not been able to get into a dentist. Denies any fever denies difficulty swallowing to has no trismus. Rates his pain a 6 out of 10 denies any worsening proving factors. Associated symptoms: Denies fever(s) Review of Systems Const: Denies: fever(s), chills, body aches or change in appetite Eyes: Denies: blurry vision or eye discomfort ENMT: Denies: throat pain or dental pain Card: Denies: chest pain Resp: Denies: dyspnea GI: Denies: abdominal pain, nausea, vomiting or diarrhea : Denies: dysuria Musc: Denies: neck pain or back pain Skin/Breast: Denies: rash Neuro: Denies: headache(s) Psych: Denies: depression Tab/Lymph: Denies: easy bruising All/Imm: Denies: urticaria PFSH ED PFSH: Medical History Asthma Cannabis dependence, uncomplicated CHF (congestive heart failure) COPD (chronic obstructive pulmonary disease) Homeless single person On combination antipsychotic drug therapy Other stimulant dependence, uncomplicated Psychiatric care Suicidal ideation Surgical History Status post club foot correction at Family History Mother Psychiatric illness Schizophrenia Social History Smoking and tobacco status: former smoker Smoking risk assessment/counseling performed?: Yes Tobacco counseling given: counseling >3 minutes Alcohol intake: never Household members: other Details: roommate x 1 Physical Exam Const: COMMON NORMALS: no acute distress, patient oriented x3 and healthy appearing HENMT: COMMON NORMALS: normocephalic and atraumatic HEAD & SCALP: normocephalic and atraumatic OTHER: Reported tension and some tenderness left lower molars multiple teeth missing and dental caries noted no trismus no abscess Eye: COMMON NORMALS: conjunctivae normal CONJUNCTIVA: Yes conjunctivae normal Neck/C-Spine: COMMON NORMALS: full ROM and supple Chest: COMMONS NORMALS: normal inspection of the chest Resp: COMMON NORMALS: normal respiratory effort Cardio: COMMON NORMALS: regular rate, regular rhythm and No murmurs present (Cardio) RATE: regular rate RHYTHM: regular rhythm GI: COMMON NORMALS: Normal to inspection, nondistended, normoactive bowel sounds present, Soft to palpation, non-tender and no masses PALPATION: Yes Soft to palpation Extremity: COMMON NORMALS: normal to inspection Neuro: COMMON NORMALS: patient oriented x3, moves all extremities and no focal motor deficits Psych: COMMON NORMALS: mental status grossly normal, Normal thought process present and cooperative THOUGHT PROCESS: Normal thought process present Skin: COMMON NORMALS: no rashes or lesions noted and no wounds GENERAL SKIN EXAM: no rashes or lesions noted Course Vital Signs: Vital signs: Vital Signs Temperature 98 F 04/01/22 10:23 Pulse Rate 95 04/01/22 10:23 Respiratory Rate 18 04/01/22 10:23 Blood Pressure 133/84 04/01/22 10:23 Pulse Oximetry 95 04/01/22 10:23 Oxygen Delivery Me thod 04/01/22 10:23 [facility] - Dental/Oral Medical Decision Making Patient presents here with dental pain he does have history of very poor dentition dental caries he has no trismus no abscess we will start on antibiotics prescribed Naprosyn he is to follow-up with the dentist. Discharge Plan Discharge Patient Disposition: Home Clinical Impression: Toothache, Dental caries Condition: Stable Prescriptions: New cephalexin 500 mg capsule 500 mg PO TID 7 Days Qty: 21 0RF Naprosyn 500 mg tablet 500 mg PO BID PRN (Reason: pain) Qty: 20 0RF No Action albuterol sulfate 90 mcg/actuation HFA aerosol inhaler 2 puff inhalation Q6H PRN (Reason: shortness of breath or wheezing) 30 Days Qty: 1 1RF azithromycin 250 mg tablet See Rx Instructions .ROUTE .COMPLEX Qty: 6 0RF Rx Instructions: For 250 mg dose pack: take 500 mg today (day 1), then 250 mg for 4 days (days 2-5) Medrol (Abraham) 4 mg tablets,dose pack See Rx Instructions .ROUTE .COMPLEX Qty: 21 0RF Rx Instructions: orally per package directions albuterol sulfate 90 mcg/actuation HFA aerosol inhaler 2 inh inhalation Q6H PRN (Reason: shortness of breath or wheezing) Qty: 8.5 0RF ibuprofen 600 mg tablet 600 mg PO Q8H PRN (Reason: pain) Qty: 20 0RF ibuprofen 600 mg tablet 600 mg PO Q8H PRN (Reason: pain) Qty: 30 0RF quetiapine [Seroquel] 300 mg tablet 600 mg PO BEDTIME 30 Days Qty: 60 1RF aspirin 81 mg Tablet,Delayed Release (Dr/Ec) 81 mg PO QAM 30 Days Qty: 30 1RF ascorbic acid (vitamin C) [Vitamin C] 500 mg Tablet 500 mg PO QAM 30 Days Qty: 30 1RF gabapentin 800 mg tablet 800 mg PO TID 30 Days Qty: 90 1RF tamsulosin 0.4 mg capsule 0.4 mg PO DAILY Discharge Orders: Discharge ED (Routine); Ordered 04/01/22 Ordered By: Fany Maher Discharge Diet: Advance as tolerated Discharge Activity: Resume usual activity Patient Instructions: Toothache (ED) Coding Level of Care Code ED Engineering Technical Writer for [facility]
[2022-04-01] MEDS: HYDROcodone-acetaminophen 7.5-325 mg Tablet 1 TAB PO (10:43)
[2022-04-01 10:47] VITALS: BP 129/87; PULSE 69; RESP 18; O2SAT 96
== END 2022-04-01 10:48 | disposition home or self-care (01) ==
PROVIDERS: Emergency Provider Emergency Medicine
DX: K02.9 Dental caries, unspecified (principal); Z79.82 Long term (current) use of aspirin; I50.9 Heart failure, unspecified; Z87.891 Personal history of nicotine dependence
CPT/HCPCS: 99283

== ENCOUNTER 2022-04-24 08:05 | Emergency (ER) | payer MEDICAID, SELFPAY ==
[2022-04-24 08:11] VITALS: BP 134/83; PULSE 92; RESP 18; TEMP 36.6; O2SAT 98; BMI 30.5
--- NOTE | 2022-04-24 08:51 | W.ED.EXTPRO ---
HPI - Extremity Problem General: Chief complaint: Extremity Injury, Upper Stated complaint: Right arm and shoulder pain Time Seen by Provider: 04/24/22 08:14 Source: patient Mode of arrival: ambulatory History of Present Illness: 57-year-old male presents emergency room with complaint of right shoulder pain he has been seen several times for this. He states that got worse eludes working there is no specific trauma. He had imaging in March he denies any trauma since then is just chronically painful particularly when he AB ducts. He has been referred to orthopedics but he has not seen them at this point. Its been going on for right about a month now. No chest pain no shortness of breath. MD Complaint: joint pain Associated symptoms: Deny chest pain, fever(s) or rash Review of Systems Const: Denies: fever(s), chills, body aches, change in appetite, fatigue or malaise ENMT: Denies: throat pain, ear or mastoid pain, nasal discharge or nasal congestion Card: Denies: chest pain, edema, dyspnea on exertion or orthopnea Resp: Denies: dyspnea, productive cough or non-productive cough GI: Denies: abdominal pain, nausea, vomiting, hematemesis, coffee ground emesis, diarrhea, constipation, bloating, hematochezia or melena : Denies: flank pain, dysuria, urinary frequency or urinary urgency Skin/Breast: Denies: rash or pruritus PFSH ED PFSH: Medical History Asthma Cannabis dependence, uncomplicated CHF (congestive heart failure) COPD (chronic obstructive pulmonary disease) Homeless single person On combination antipsychotic drug therapy Psychiatric care Suicidal ideation Surgical History Status post club foot correction at Family History Mother Psychiatric illness Schizophrenia Social History Smoking and tobacco status: former smoker Smoking risk assessment/counseling performed?: Yes Tobacco counseling given: counseling >3 minutes Alcohol intake: never Household members: other Details: roommate x 1 Physical Exam Const: COMMON NORMALS: no acute distress GENERAL APPEARANCE: cooperative and comfortable ORIENTATION/CONSCIOUSNESS: Yes awake, Yes oriented to person, Yes oriented to place and Yes oriented to time HENMT: COMMON NORMALS: normocephalic, atraumatic and hearing grossly normal bilaterally HEAD & SCALP: normocephalic and atraumatic Cardio: COMMON NORMALS: regular rate, regular rhythm and No murmurs present (Cardio) RATE: regular rate RHYTHM: regular rhythm Extremity: COMMON NORMALS: normal to inspection, capillary refill normal, no clubbing, cyanosis or edema, no calf tenderness and no pedal edema OTHER: Positive impingement sign with external rotation. No crepitus no ecchymosis. Neuro: SENSORIUM/ORIENTATION: Yes oriented to person, Yes oriented to place and Yes oriented to time Skin: COMMON NORMALS: no rashes or lesions noted GENERAL SKIN EXAM: no rashes or lesions noted Course Vital Signs: Vital signs: Vital Signs Temperature 97.9 F 04/24/22 08:11 Pulse Rate 92 04/24/22 08:11 Respiratory Rate 18 04/24/22 08:11 Blood Pressure 134/83 04/24/22 08:11 Pulse Oximetry 98 04/24/22 08:11 Oxygen Delivery Me thod 04/24/22 08:11 MDM - Extremity (Nontraumatic) Medical Decision Making No acute findings on exam or history. Defer to orthopedics. Medical Records I reviewed the patient's medical records. Discharge Plan Discharge Patient Disposition: Home Clinical Impression: Right shoulder strain Condition: Stable Prescriptions: New diclofenac sodium 75 mg tablet,delayed release (DR/EC) 75 mg PO Q12H PRN (Reason: pain) Qty: 20 0RF Discontinued ibuprofen 600 mg tablet 600 mg PO Q8H PRN (Reason: pain) Qty: 20 0RF naproxen [Naprosyn] 500 mg tablet 500 mg PO BID PRN (Reason: pain) Qty: 20 0RF ibuprofen 600 mg tablet 600 mg PO Q8H PRN (Reason: pain) Qty: 30 0RF No Action gabapentin 800 mg tablet 800 mg PO TID 30 Days Qty: 90 0RF quetiapine [Seroquel] 300 mg tablet 600 mg PO BEDTIME 30 Days Qty: 60 0RF albuterol sulfate 90 mcg/actuation HFA aerosol inhaler 2 puff inhalation Q6H PRN (Reason: shortness of breath or wheezing) 30 Days Qty: 1 1RF azithromycin 250 mg tablet See Rx Instructions .ROUTE .COMPLEX Qty: 6 0RF Rx Instructions: For 250 mg dose pack: take 500 mg today (day 1), then 250 mg for 4 days (days 2-5) Medrol (Abraham) 4 mg tablets,dose pack See Rx Instructions .ROUTE .COMPLEX Qty: 21 0RF Rx Instructions: orally per package directions albuterol sulfate 90 mcg/actuation HFA aerosol inhaler 2 inh inhalation Q6H PRN (Reason: shortness of breath or wheezing) Qty: 8.5 0RF aspirin 81 mg Tablet,Delayed Release (Dr/Ec) 81 mg PO QAM 30 Days Qty: 30 1RF ascorbic acid (vitamin C) [Vitamin C] 500 mg Tablet 500 mg PO QAM 30 Days Qty: 30 1RF tamsulosin 0.4 mg capsule 0.4 mg PO DAILY Discharge Orders: Discharge ED (Routine); Ordered 04/24/22 Ordered By: Escobar Carranza Discharge Diet: Usual diet Discharge Activity: Increase activity as tolerated Patient Instructions: Opioid Safety, Pain Management Activity Restrictions/Additional Instructions: Case management make arrangements for follow-up with the orthopedic clinic. Coding Level of Care Code ED Systems Development Manager for [facility]
--- NOTE | 2022-04-24 15:32 | DCPLANNER ---
Addendum entered by Amy Jacome 05/02/22 12:34: manager search received the following message from the ortho clinic regarding follow up appointment: No vm/mailed letter for pt to call and schedule with DARELL David Original Note: manager search had message to schedule a follow up appointment for patient with ortho. manager search sent patients information to the front office staff at ortho. Patients information will be printed and reviewed. Clinic will call patient with appointment information.
== END 2022-04-24 09:20 | disposition home or self-care (01) ==
PROVIDERS: Emergency Provider Family Medicine
DX: S46.911A Strain of unspecified muscle, fascia and tendon at shoulder and upper arm level, right arm, initial encounter (principal); Z79.82 Long term (current) use of aspirin; I50.9 Heart failure, unspecified; J44.9 Chronic obstructive pulmonary disease, unspecified; Z87.891 Personal history of nicotine dependence; X58.XXXA Exposure to other specified factors, initial encounter
CPT/HCPCS: 99283

== ENCOUNTER 2022-06-10 20:20 | Emergency (ER) | payer MEDICAID, SELFPAY ==
[2022-06-10 20:25] VITALS: PULSE 102; RESP 16; TEMP 36.4; O2SAT 98
--- NOTE | 2022-06-10 20:46 | W.ED.MALEGU ---
HPI - Male Genitourinary General: Chief complaint: Back Pain/Injury Stated complaint: Possible Kidney Stones Time Seen by Provider: 06/10/22 20:46 History of Present Illness: Mr. Cortes is a 57-year-old gentleman with history of psychiatric disorder and substance abuse presenting to the emergency department due to concern of kidney stones and feeling off. He reports a history of kidney stones including blood in urine and over the past few days is having increased left flank back pain. He also reports feeling abnormal since he was working and was given water possibly placed with speed and has felt generally ill since like he cannot sit down. Intensity of symptoms is moderate. Course has persisted. No other specific changes in health, exacerbating, or alleviating factors identified. Onset (ago): day(s) Location: left flank Severity: moderate Quality: sharp Relieving factors: none Exacerbating factors: none Context: other Associated symptoms: Reports other Review of Systems General: Reports: 10 or more systems reviewed and unremarkable except in HPI and below PFSH ED PFSH: Medical History Asthma Cannabis dependence, uncomplicated CHF (congestive heart failure) COPD (chronic obstructive pulmonary disease) Homeless single person On combination antipsychotic drug therapy Psychiatric care Suicidal ideation Surgical History Status post club foot correction at Family History Mother Psychiatric illness Schizophrenia Social History Smoking and tobacco status: former smoker Smoking risk assessment/counseling performed?: Yes Tobacco counseling given: counseling >3 minutes Alcohol intake: never Household members: other Details: roommate x 1 Physical Exam Const: COMMON NORMALS: alert GENERAL APPEARANCE: cooperative and well developed HENMT: COMMON NORMALS: normocephalic and atraumatic HEAD & SCALP: normocephalic and atraumatic Eye: COMMON NORMALS: conjunctivae normal CONJUNCTIVA: Yes conjunctivae normal SCLERA: sclerae normal Neck/C-Spine: COMMON NORMALS: supple GENERAL: Yes trachea midline Resp: COMMON NORMALS: normal respiratory effort EFFORT & INSPECTION: Yes able to speak in complete sentences Cardio: COMMON NORMALS: regular rate and regular rhythm RATE: regular rate RHYTHM: regular rhythm GI: COMMON NORMALS: Soft to palpation PALPATION: Yes Soft to palpation and No Tenderness to palpation present (GI) Extremity: GENERAL: Yes normal exam except as noted and No edema Neuro: COMMON NORMALS: moves all extremities SENSORIUM/ORIENTATION: Yes alert and No Orientation impaired Psych: ACTIVITY/MOTOR BEHAVIOR: Yes psychomotor agitation and Yes fidgeting Course Vital Signs: Vital signs: Vital Signs Temperature 97.5 F L 06/10/22 20:25 Pulse Rate 91 06/11/22 00:17 Respiratory Rate 20 H 06/11/22 00:17 Blood Pressure 114/88 06/11/22 00:17 Pulse Oximetry 97 06/11/22 00:17 Oxygen Delivery Me thod 06/10/22 21:50 MDM - Male Medical Decision Making 57-year-old gentleman presenting with various concerns. There are no focal neurologic deficits however patient does exhibit evidence of clinical intoxication likely consistent with amphetamines. He is nontoxic in appearance and there is no evidence of acute surgical abdomen. Labs notable for mild leukocytosis, normal hemoglobin and platelet count. Metabolic panel with mild evidence of dehydration. No evidence of UTI or hematuria. Positive for THC and findings on urine drug screen. Chest x-ray with no lobar consolidation or pneumothorax. Given patient's unlikely in the context of clinical intoxication I feel that CT imaging is appropriate. CT is negative for acute pathology to explain symptoms. I discussed incidental findings. Patient here significantly improved with p.o. Ativan, Toradol, DuoNeb, fluids and also requested Seroquel dose. Clinical intoxication resolved. Most likely cause of patient's symptoms is substance abuse and unspecified abdominal pain. The results of ED evaluation were discussed with the patient including prescriptions and/or symptomatic cares (if applicable) including appropriate and responsible use, followup plan, and return precautions. The patient verbalized understanding and felt safe for discharge. Medical Records I reviewed the patient's medical records. Lab Data I reviewed the patient's lab results. 06/10/22 21:00 06/10/22 21:00 Radiology Impressions Chest X-Ray 06/10/22 20:51 IMPRESSION: Cardiomegaly, negative for infiltrate. Abdomen/Pelvis CT 06/10/22 22:20 IMPRESSION: 1. Negative for focal acute inflammatory process in the abdomen or pelvis. 2. Cardiomegaly. 3. Constipation. 4. Minimal central mesenteric edema with prominent subcentimeter lymph nodes may reflect a chronic inflammatory process such as sclerosing mesenteritis. Laboratory Results WBC 12.0 10^3/uL (4.0-10.0) H 06/10/22 21:00 RBC 4.99 10^6/uL (4.1-5.3) 06/10/22 21:00 Hgb 14.6 g/dL (11.7-16.6) 06/10/22 21:00 Hct 44.9 % (42.0-52.0) 06/10/22 21:00 MCV 90.0 fl (80-94) 06/10/22 21:00 MCH 29.3 pg (28.0-34.0) 06/10/22 21:00 MCHC 32.5 g/dL (30.0-36.0) 06/10/22 21:00 RDW 13.8 % (12.1-15.1) 06/10/22 21:00 Plt Count 338 10^3/cmm (130-400) 06/10/22 21:00 MPV 8.5 fL (7.4-10.4) 06/10/22 21:00 Neut % (Auto) 71.4 % 06/10/22 21:00 Lymph % (Auto) 18.2 % 06/10/22 21:00 [place] % (Auto) 8.0 % 06/10/22 21:00 Eos % (Auto) 1.5 % 06/10/22 21:00 Baso % (Auto) 0.7 % 06/10/22 21:00 Neut # (Auto) 8.58 10^3/uL (1.8-7.7) H 06/10/22 21:00 Lymph # (Auto) 2.2 10^3/uL (0.8-4.8) 06/10/22 21:00 [place] # (Auto) 1.0 10^3/uL (0.2-0.9) H 06/10/22 21:00 Eos # (Auto) 0.2 10^3/uL (0.0-0.8) 06/10/22 21:00 Baso # (Auto) 0.1 10^3/uL (0.0-0.1) 06/10/22 21:00 Nucleated RBC % (auto) 0 % 06/10/22 21:00 Nucleated RBCs # 0.0 /100WBC 06/10/22 21:00 Sodium 134 mmol/L (136-145) L 06/10/22 21:00 Potassium 4.3 mmol/L (3.5-5.1) 06/10/22 21:00 Chloride 98 mmol/L (98-107) 06/10/22 21:00 Carbon Dioxide 26 mmol/L (22-29) 06/10/22 21:00 Anion Gap 14.3 (5-19) 06/10/22 21:00 BUN 23 mg/dL (6-20) H 06/10/22 21:00 Creatinine 1.0 mg/dL (0.7-1.2) 06/10/22 21:00 GFR Calculation 77.0 mL/min (90-130) L 06/10/22 21:00 Glucose 99 mg/dL (65-115) 06/10/22 21:00 Calculated Osmolality 282 mOsm/kg (285-295) L 06/10/22 21:00 Calcium 9.3 mg/dL (8.5-10.5) 06/10/22 21:00 Total Bilirubin 0.2 mg/dL (0.15-1.2) 06/10/22 21:00 AST 19 U/L (0-40) 06/10/22 21:00 ALT 21 U/L (0-41) 06/10/22 21:00 Alkaline Phosphatase 113 U/L (40-130) 06/10/22 21:00 Total Protein 7.5 g/dL (6.6-8.7) 06/10/22 21:00 Albumin 4.4 g/dL (3.5-5.2) 06/10/22 21:00 Globulin 3.1 g/dL (1.3-4.6) 06/10/22 21:00 Lipase 20 U/L (13-60) 06/10/22 21:00 Urine Color Yellow (Yellow) 06/10/22 22:11 Urine Appearance Clear (CLEAR) 06/10/22 22:11 Urine pH 5 (5-7) 06/10/22 22:11 Ur Specific [place] 1.030 (1.005-1.030) 06/10/22 22:11 Urine Protein Trace (Negative) 06/10/22 22:11 Urine Glucose (UA) Norm (Normal) 06/10/22 22:11 Urine Ketones 1+ (Negative) H 06/10/22 22:11 Urine Blood Neg (Negative) 06/10/22 22:11 Urine Nitrate Negative (Negative) 06/10/22 22:11 Urine Bilirubin Neg (Negative) 06/10/22 22:11 Urine Urobilinogen Norm mg/dL (Negative) 06/10/22 22:11 Ur Leukocyte Esterase Negative (Negative) 06/10/22 22:11 Urine RBC None /hpf (0-2) 06/10/22 22:11 Urine WBC None /hpf (0-5) 06/10/22 22:11 Ur Squamous Epith Cells 0-4 /hpf (0-5) H 06/10/22 22:11 Amorphous Sediment Not Reportable 06/10/22 22:11 Urine Bacteria None /hpf (NONE) 06/10/22 22:11 Urine Mucus 3+ /hpf 06/10/22 22:11 Urine Opiates Screen Negative ng/mL (Negative) 06/10/22 22:11 Ur Barbiturates Screen Negative ng/mL (Negative) 06/10/22 22:11 Ur Phencyclidine Scrn Negative ng/mL (Negative) 06/10/22 22:11 Ur Amphetamines Screen Positive ng/mL (Negative) H 06/10/22 22:11 U Benzodiazepines Scrn Negative ng/mL (Negative) 06/10/22 22:11 Urine Cocaine Screen Negative ng/mL (Negative) 06/10/22 22:11 U Marijuana (THC) Screen Positive ng/mL (Negative) H 06/10/22 22:11 Discharge Plan Discharge Patient Disposition: Home Clinical Impression: Substance abuse, Back pain, Constipation, Dehydration, mild Condition: Stable Prescriptions: Continued Seroquel 300 mg tablet 600 mg PO BEDTIME 30 Days Qty: 60 0RF No Action gabapentin 800 mg tablet 800 mg PO TID 30 Days Qty: 90 0RF albuterol sulfate 90 mcg/actuation HFA aerosol inhaler 2 puff inhalation Q6H PRN (Reason: shortness of breath or wheezing) 30 Days Qty: 1 1RF albuterol sulfate 90 mcg/actuation HFA aerosol inhaler 2 inh inhalation Q6H PRN (Reason: shortness of breath or wheezing) Qty: 8.5 0RF aspirin 81 mg Tablet,Delayed Release (Dr/Ec) 81 mg PO QAM 30 Days Qty: 30 1RF ascorbic acid (vitamin C) [Vitamin C] 500 mg Tablet 500 mg PO QAM 30 Days Qty: 30 1RF Discharge Orders: Discharge ED (Routine); Ordered 06/10/22 Ordered By: Lino Ling Discharge Diet: Advance as tolerated and Clear Liquid Discharge Activity: Increase activity as tolerated Patient Instructions: Constipation (ED), Abdominal Pain (ED), Polysubstance Use Disorder (ED), Back Pain (ED) Activity Restrictions/Additional Instructions: Thank you for visiting the emergency department. You were seen in and evaluated for for back and abdominal pain. The exact cause of your symptoms is unclear though does not appear to need hospitalization at this time. Your generalized symptoms are almost certainly related to substance abuse. Please stop using drugs, failure to stop using drugs may lead to or worse. Please follow-up with a primary care provider. Return to the emergency department for uncontrolled symptoms or anything else that you are concerned about a feel needs emergency department evaluation. Coding Level of Care Code ED Mental Health Coordinator for Panchito Cooper
--- NOTE | 2022-06-10 20:51 | XRR_ITS ---
PROCEDURE INFORMATION: Exam: XR Chest Exam date and time: 06/10/2022 10:08 PM Age: 57 years old Clinical indication: Cough; Additional info: Cough, SOB TECHNIQUE: Imaging protocol: Radiologic exam of the chest. Views: 1 view. COMPARISON: CR XR chest 1V portable [id number] 03/27/2022 6:21 PM FINDINGS: Lungs: Unremarkable. No consolidation. Pleural spaces: Unremarkable. No pleural effusion. No pneumothorax. Heart/Mediastinum: Cardiomegaly. Bones/joints: Unremarkable. XR/XR chest 1V portable [id number] IMPRESSION: Cardiomegaly, negative for infiltrate.
[2022-06-10 21:10] LABS: Basophils # 0.1 10^3/uL (0.0-0.1); Basophils % 0.7 %; Eosinophils # 0.2 10^3/uL (0.0-0.8); Eosinophils % 1.5 %; Hematocrit 44.9 % (42.0-52.0); Hemoglobin 14.6 g/dL (11.7-16.6); Lymphocytes # 2.2 10^3/uL (0.8-4.8); Lymphocytes % 18.2 %; Mean Corpuscular HGB Conc 32.5 g/dL (30.0-36.0); Mean Corpuscular Hemoglobin 29.3 pg (28.0-34.0); Mean Platelet Volume 8.5 fL (7.4-10.4); Neutrophils # 8.58 10^3/uL (1.8-7.7); Neutrophils % 71.4 %; Nucleated Red Blood Cells % 0 %; Platelet Count 338 10^3/cmm (130-400); Red Blood Count 4.99 10^6/uL (4.1-5.3); Red Cell Distribution Width 13.8 % (12.1-15.1)
[2022-06-10] MEDS: sodium chloride 0.9% 500 ML IV (21:12)
[2022-06-10] MEDS: ketorolac 30 mg/mL INJ 15 MG IVP (21:12)
[2022-06-10 21:28] LABS: Alanine Aminotransferase 21 U/L (0-41); Albumin Level 4.4 g/dL (3.5-5.2); Alkaline Phosphatase 113 U/L (40-130); Anion Gap 14.3 (5-19); Aspartate Amino Transferase 19 U/L (0-40); Blood Urea Nitrogen 23 mg/dL (6-20); Calcium 9.3 mg/dL (8.5-10.5); Carbon Dioxide 26 mmol/L (22-29); Chloride 98 mmol/L (98-107); Globulin 3.1 g/dL (1.3-4.6); Glucose 99 mg/dL (65-115); Lipase 20 U/L (13-60); Osmolality Calculated 282 mOsm/kg (285-295); Potassium 4.3 mmol/L (3.5-5.1); Sodium 134 mmol/L (136-145); Total Bilirubin 0.2 mg/dL (0.15-1.2); Total Protein 7.5 g/dL (6.6-8.7)
[2022-06-10] MEDS: LORazepam 1 mg Tablet PO (21:33)
[2022-06-10 21:50] VITALS: PULSE 101; RESP 18; O2SAT 98
[2022-06-10] MEDS: ipratropium-albuterol 3 mL Neb INHALATION (21:51)
--- NOTE | 2022-06-10 22:20 | CTR_ITS ---
PROCEDURE INFORMATION: Exam: CT Abdomen And Pelvis Without Contrast Exam date and time: 06/10/2022 11:20 PM Age: 57 years old Clinical indication: Abdominal pain; Patient HX: C/O left flank pain TECHNIQUE: Imaging protocol: Computed tomography of the abdomen and pelvis without contrast. Radiation optimization: All CT scans at this facility use at least one of these dose optimization techniques: automated exposure control; mA and/or kV adjustment per patient size (includes targeted exams where dose is matched to clinical indication); or iterative reconstruction. COMPARISON: CT kidney stone [id number] 07/22/2021 6:57 PM RADIATION DOSE METRICS: Total DLP (mGy-cm): 1351.88 FINDINGS: Heart: Cardiomegaly. Liver: Normal. No mass. Gallbladder and bile ducts: Normal. No calcified stones. No ductal dilation. Pancreas: Normal. No ductal dilation. Spleen: Normal. No splenomegaly. Adrenal glands: Normal. No mass. Kidneys and ureters: Normal. No hydronephrosis. Stomach and bowel: Constipation. Appendix: No evidence of appendicitis. Intraperitoneal space: Unremarkable. No free air. No significant fluid collection. Vasculature: Unremarkable. No abdominal aortic aneurysm. Lymph nodes: Minimal central mesenteric edema with prominent subcentimeter lymph nodes may reflect a chronic inflammatory process such as sclerosing mesenteritis. Urinary bladder: Unremarkable as visualized. Reproductive: Unremarkable as visualized. Bones/joints: Unremarkable. No acute fracture. Soft tissues: Unremarkable. CT/CT abdomen pelvis wo con [id number] IMPRESSION: 1. Negative for focal acute inflammatory process in the abdomen or pelvis. 2. Cardiomegaly. 3. Constipation. 4. Minimal central mesenteric edema with prominent subcentimeter lymph nodes may reflect a chronic inflammatory process such as sclerosing mesenteritis.
[2022-06-10 22:28] VITALS: BP 146/98
[2022-06-10 22:36] LABS: Glucose Urine UA Norm (Normal); Ketones Urine 1+ (Negative); Protein Urine Trace (Negative); Urine Appearance Clear (CLEAR); Urine Color Yellow (Yellow); pH Urine 5 (5-7)
[2022-06-10 22:37] LABS: Add Urine Culture? No; Add Urine Microscopic? YES; Bilirubin Urine Neg (Negative); Blood Urine Neg (Negative); Leukocyte Esterase Urine Negative (Negative); Mucus Urine 3+ /hpf; Nitrate Urine Negative (Negative); Squamous Epithelial Cell Urine 0-4 /hpf (0-5); Urobilinogen Urine Norm (Negative)
[2022-06-10 22:53] LABS: Amphetamines Screen Urine Positive (Negative); Barbiturates Screen Urine Negative (Negative); Benzodiazepines Screen Urine Negative (Negative); Cocaine Screen Urine Negative (Negative); Opiate Screen Urine Negative (Negative); PCP Screen Urine Negative (Negative); THC Screen Urine Positive (Negative)
[2022-06-11] MEDS: quetiapine 300 mg Tablet PO (00:16)
[2022-06-11 00:17] VITALS: BP 114/88; PULSE 91; RESP 20; O2SAT 97
== END 2022-06-11 00:15 | disposition home or self-care (01) ==
PROVIDERS: Emergency Provider Emergency Medicine
DX: R10.9 Unspecified abdominal pain (principal); K59.00 Constipation, unspecified; E86.0 Dehydration; F12.10 Cannabis abuse, uncomplicated
CPT/HCPCS: 71045; 74176; 80053; 80306; 81001; 83690; 85025; 94640; 96361; 96374; 99285; J1885; J7040

== ENCOUNTER 2022-08-20 04:00 | Emergency (ER) | payer MEDICAID, SELFPAY ==
[2022-08-20 04:05] VITALS: BP 145/83; PULSE 118; RESP 26; TEMP 36.3; O2SAT 95; BMI 30.5
--- NOTE | 2022-08-20 04:10 | XRR_ITS ---
PROCEDURE INFORMATION: Exam: XR Chest Exam date and time: 08/20/2022 4:18 AM Age: 57 years old Clinical indication: Shortness of breath; Patient HX: C/O SOB. History of copd and chf. TECHNIQUE: Imaging protocol: Radiologic exam of the chest. Views: 1 view. COMPARISON: CR XR chest 1V portable [id number] 06/10/2022 10:08 PM FINDINGS: Lungs: Mild diffuse interstitial pulmonary edema. No consolidation. Pleural spaces: No pneumothorax. Heart/Mediastinum: The heart is quite large. Mild venous congestion. Bones/joints: Unremarkable. XR/XR chest 1V portable [id number] IMPRESSION: Large heart with slight evidence of CHF or positive fluid balance. The findings have progressed from 06/10/2022.
--- NOTE | 2022-08-20 04:11 | ECG_ITS ---
[facility] Test Date: 2022-08-20 Pat Name: David Cortes Department: Room: Gender: Male Back Pad Inspector: : 1965 Requested By: Fany Maher Order Number: [id number] Mahesh MD: Alexis Adan M.D. Measurements Intervals [place] Rate: 107 P: 44 UT: 173 QRS: 15 QRSD: 105 T: 70 QT: 347 QTc: 464 Interpretive Statements SINUS TACHYCARDIA WITH OCCASIONAL VENTRICULAR PREMATURE COMPLEXES POSSIBLE LEFT ATRIAL ENLARGEMENT [-0.1mV P-WAVE IN V1/V2] POSSIBLE RIGHT VENTRICULAR CONDUCTION DELAY [RSR (QR) IN V1/V2] Compared to ECG 03/27/2022 19:41:18 Ventricular premature complex(es) now present Sinus rhythm no longer present Electronically Signed On 08-20-2022 18:10:24 [employer] by Alexis Adan M.D. [id number]
[2022-08-20] MEDS: LORazepam 2 mg/mL INJ 1 mL IVP (04:15)
--- NOTE | 2022-08-20 04:16 | W.ED.CHESTPA ---
Documented by User: Fany Maher MD 08/20/22 04:19 HPI - Chest Pain General: Chief Complaint: Shortness of Breath/Dyspnea Stated Complaint: sob Time Seen by Provider: 08/20/22 04:10 Source: patient Mode of arrival: ambulatory Limitations: no limitations History of Present Illness: 57-year-old male states that since 10 PM last night he been having chest pain, shortness of breath he has had a history of drug abuse. He denies any use but states that he may have taken a pill that was not supposed to be his he appears to be under the influence he is diaphoretic he is pressured speech he has erratic movements. He states that he feels like he cannot get his breath then he appears anxious and is tachycardic and tachypneic he denies any fever denies any worsening proving factors. Associated symptoms: Reports dyspnea; Deny abdominal pain, fever(s), nausea or vomiting Review of Systems Const: Denies: fever(s), chills, body aches or change in appetite Eyes: Denies: blurry vision or eye discomfort ENMT: Denies: throat pain or dental pain Card: Reports: chest pain Resp: Reports: dyspnea GI: Denies: abdominal pain, nausea, vomiting or diarrhea : Denies: dysuria Musc: Denies: neck pain or back pain Skin/Breast: Denies: rash Neuro: Denies: headache(s) Psych: Denies: depression Tab/Lymph: Denies: easy bruising All/Imm: Denies: urticaria PFSH ED PFSH: Medical History Asthma Cannabis dependence, uncomplicated CHF (congestive heart failure) COPD (chronic obstructive pulmonary disease) Homeless single person On combination antipsychotic drug therapy Psychiatric care Suicidal ideation Surgical History Status post club foot correction at Family History Mother Psychiatric illness Schizophrenia Social History Smoking and tobacco status: former smoker Smoking risk assessment/counseling performed?: Yes Tobacco counseling given: counseling >3 minutes Alcohol intake: never Household members: other Details: roommate x 1 Physical Exam Const: COMMON NORMALS: patient oriented x3 GENERAL APPEARANCE: anxious HENMT: COMMON NORMALS: normocephalic and atraumatic HEAD & SCALP: normocephalic and atraumatic Eye: COMMON NORMALS: Equal, round and reactive pupils present and EOMs intact bilaterally PUPIL: Yes Equal, round and reactive pupils present Neck/C-Spine: COMMON NORMALS: full ROM and supple Chest: COMMONS NORMALS: normal inspection of the chest and normal palpation of entire chest wall Resp: COMMON NORMALS: normal respiratory effort, No retractions, No use of accessory muscles and clear to auscultation bilaterally AUSCULTATION: clear to auscultation bilaterally Cardio: COMMON NORMALS: regular rhythm and No murmurs present (Cardio) RATE: tachycardic RHYTHM: regular rhythm GI: COMMON NORMALS: Normal to inspection, nondistended, normoactive bowel sounds present, Soft to palpation, non-tender and no masses PALPATION: Yes Soft to palpation Extremity: COMMON NORMALS: normal to inspection and full ROM Neuro: COMMON NORMALS: patient oriented x3, moves all extremities and no focal motor deficits Psych: COMMON NORMALS: mental status grossly normal, Normal thought process present and cooperative SPEECH: Yes excessive and Yes Pressured speech present MOOD & AFFECT: Yes elevated mood THOUGHT PROCESS: Normal thought process present Skin: COMMON NORMALS: no rashes or lesions noted and no wounds GENERAL SKIN EXAM: no rashes or lesions noted Course Vital Signs: Vital signs: Vital Signs Temperature 97.3 F L 08/20/22 04:05 Pulse Rate 101 H 08/20/22 06:30 Respiratory Rate 22 H 08/20/22 06:30 Blood Pressure 117/100 08/20/22 06:30 Pulse Oximetry 95 08/20/22 06:30 Oxygen Delivery Me thod 08/20/22 04:05 MDM - Chest Pain Lab Data 08/20/22 04:19 08/20/22 04:19 Radiology Impressions Chest X-Ray 08/20/22 04:10 IMPRESSION: Large heart with slight evidence of CHF or positive fluid balance. The findings have progressed from 06/10/2022. Laboratory Results WBC 9.8 10^3/uL (4.0-10.0) 08/20/22 04:19 RBC 4.52 10^6/uL (4.1-5.3) 08/20/22 04:19 Hgb 12.9 g/dL (11.7-16.6) 08/20/22 04:19 Hct 40.1 % (42.0-52.0) L 08/20/22 04:19 MCV 88.7 fl (80-94) 08/20/22 04:19 MCH 28.5 pg (28.0-34.0) 08/20/22 04:19 MCHC 32.2 g/dL (30.0-36.0) 08/20/22 04:19 RDW 14.0 % (12.1-15.1) 08/20/22 04:19 Plt Count 283 10^3/cmm (130-400) 08/20/22 04:19 MPV 8.9 fL (7.4-10.4) 08/20/22 04:19 Neut % (Auto) 65.1 % 08/20/22 04:19 Lymph % (Auto) 22.7 % 08/20/22 04:19 [place] % (Auto) 9.6 % 08/20/22 04:19 Eos % (Auto) 1.6 % 08/20/22 04:19 Baso % (Auto) 0.8 % 08/20/22 04:19 Neut # (Auto) 6.35 10^3/uL (1.8-7.7) 08/20/22 04:19 Lymph # (Auto) 2.2 10^3/uL (0.8-4.8) 08/20/22 04:19 [place] # (Auto) 0.9 10^3/uL (0.2-0.9) 08/20/22 04:19 Eos # (Auto) 0.2 10^3/uL (0.0-0.8) 08/20/22 04:19 Baso # (Auto) 0.1 10^3/uL (0.0-0.1) 08/20/22 04:19 Nucleated RBC % (auto) 0 % 08/20/22 04:19 Nucleated RBCs # 0.0 /100WBC 08/20/22 04:19 Sodium 138 mmol/L (136-145) 08/20/22 04:19 Potassium 3.0 mmol/L (3.5-5.1) L 08/20/22 04:19 Chloride 100 mmol/L (98-107) 08/20/22 04:19 Carbon Dioxide 23 mmol/L (22-29) 08/20/22 04:19 Anion Gap 18.0 (5-19) 08/20/22 04:19 BUN 17 mg/dL (6-20) 08/20/22 04:19 Creatinine 0.9 mg/dL (0.7-1.2) 08/20/22 04:19 GFR Calculation 87.0 mL/min (90-130) L 08/20/22 04:19 Glucose 138 mg/dL (65-115) H 08/20/22 04:19 Calculated Osmolality 290 mOsm/kg (285-295) 08/20/22 04:19 Calcium 8.6 mg/dL (8.5-10.5) 08/20/22 04:19 Total Bilirubin 0.3 mg/dL (0.15-1.2) 08/20/22 04:19 AST 39 U/L (0-40) 08/20/22 04:19 ALT 32 U/L (0-41) 08/20/22 04:19 Alkaline Phosphatase 105 U/L (40-130) 08/20/22 04:19 Troponin T Baseline 25 ng/L (0-15) H 08/20/22 04:19 Troponin T 120 Minute 26.34 ng/L (0-15) H 08/20/22 06:27 Delta Troponin T 1.34 ABS# (0-10) 08/20/22 06:27 NT-Pro-B Natriuret Pep 2864 pg/mL (0-125) H 08/20/22 04:19 Total Protein 6.9 g/dL (6.6-8.7) 08/20/22 04:19 Albumin 4.1 g/dL (3.5-5.2) 08/20/22 04:19 Globulin 2.8 g/dL (1.3-4.6) 08/20/22 04:19 Urine Color Yellow (Yellow) 08/20/22 05:42 Urine Appearance Clear (CLEAR) 08/20/22 05:42 Urine pH 5 (5-7) 08/20/22 05:42 Ur Specific [place] 1.015 (1.005-1.030) 08/20/22 05:42 Urine Protein Neg (Negative) 08/20/22 05:42 Urine Glucose (UA) Norm (Normal) 08/20/22 05:42 Urine Ketones Negative (Negative) 08/20/22 05:42 Urine Blood Neg (Negative) 08/20/22 05:42 Urine Nitrate Negative (Negative) 08/20/22 05:42 Urine Bilirubin Neg (Negative) 08/20/22 05:42 Urine Urobilinogen Norm mg/dL (Negative) 08/20/22 05:42 Ur Leukocyte Esterase 1+ (Negative) H 08/20/22 05:42 Urine RBC Rare /hpf (0-2) 08/20/22 05:42 Urine WBC 25-40 /hpf (0-5) H 08/20/22 05:42 Ur Squamous Epith Cells Rare /hpf (0-5) 08/20/22 05:42 Amorphous Sediment Not Reportable 08/20/22 05:42 Urine Bacteria Trace /hpf (NONE) 08/20/22 05:42 Urine Mucus 1+ /hpf 08/20/22 05:42 Urine Opiates Screen Negative ng/mL (Negative) 08/20/22 05:42 Ur Barbiturates Screen Negative ng/mL (Negative) 08/20/22 05:42 Ur Phencyclidine Scrn Negative ng/mL (Negative) 08/20/22 05:42 Ur Amphetamines Screen Positive ng/mL (Negative) H 08/20/22 05:42 U Benzodiazepines Scrn Negative ng/mL (Negative) 08/20/22 05:42 Urine Cocaine Screen Negative ng/mL (Negative) 08/20/22 05:42 U Marijuana (THC) Screen Positive ng/mL (Negative) H 08/20/22 05:42 EKG Data EKG 1: I personally reviewed and interpreted this EKG as follows: EKG interpretation date: 08/20/22 EKG interpretation time: 04:11 Interpretation: sinus tach hr [address] or t wave abnormalities qrs 105 qtc 410 Discharge Plan Discharge Patient Disposition: Home Clinical Impression: CHF (congestive heart failure), Methamphetamine use disorder, severe, Schizophrenia, chronic condition, Cannabis use disorder Condition: Stable Prescriptions: New Lasix 20 mg tablet 20 mg PO DAILY Qty: 30 0RF potassium chloride 20 mEq tablet,ER particles/crystals 20 meq PO DAILY Qty: 30 0RF No Action gabapentin 800 mg tablet 800 mg PO TID 30 Days Qty: 90 0RF quetiapine [Seroquel] 400 mg tablet 400 mg PO .HS Qty: 30 1RF albuterol sulfate 90 mcg/actuation HFA aerosol inhaler 2 puff inhalation Q6H PRN (Reason: shortness of breath or wheezing) 30 Days Qty: 1 1RF albuterol sulfate 90 mcg/actuation HFA aerosol inhaler 2 inh inhalation Q6H PRN (Reason: shortness of breath or wheezing) Qty: 8.5 0RF aspirin 81 mg Tablet,Delayed Release (Dr/Ec) 81 mg PO QAM 30 Days Qty: 30 1RF ascorbic acid (vitamin C) [Vitamin C] 500 mg Tablet 500 mg PO QAM 30 Days Qty: 30 1RF Discharge Orders: Discharge ED (Routine); Ordered 08/20/22 Ordered By: Escobar Carranza Discharge Diet: Cardiac Discharge Activity: Resume usual activity Patient Instructions: Opioid Safety, Pain Management Activity Restrictions/Additional Instructions: You are seen today for congestive heart failure heart failure is exacerbated by your continued use of methamphetamine strongly encouraged you abstain from all methamphetamine use. Used to start Lasix 20 mg once daily. You also should supplement your potassium with 20 mEq once daily. Continue all your other medications as previously prescribed and follow-up with your primary care doctor within the next week Sign Out Sign Out Data: Patient Sign Out occurred on 08/20/22 at 06:11. Patient's care was discussed, and care was transferred from to Escobar Carranza DO. Coding Level of Care Code ED Barrel Dedenting Machine Operator for Chg Fwd Documented by User: Escobar Carranza DO 08/20/22 09:15 HPI - Chest Pain General: Chief Complaint: Shortness of Breath/Dyspnea Stated Complaint: sob Time Seen by Provider: 08/20/22 04:10 PFSH ED PFSH: Medical History Asthma Cannabis dependence, uncomplicated CHF (congestive heart failure) COPD (chronic obstructive pulmonary disease) Homeless single person On combination antipsychotic drug therapy Psychiatric care Suicidal ideation Surgical History Status post club foot correction at Family History Mother Psychiatric illness Schizophrenia Social History Smoking and tobacco status: former smoker Smoking risk assessment/counseling performed?: Yes Tobacco counseling given: counseling >3 minutes Alcohol intake: never Household members: other Details: roommate x 1 Course Vital Signs: Vital signs: Vital Signs Temperature 97.3 F L 08/20/22 04:05 Pulse Rate 101 H 08/20/22 06:30 Respiratory Rate 22 H 08/20/22 06:30 Blood Pressure 117/100 08/20/22 06:30 Pulse Oximetry 95 08/20/22 06:30 Oxygen Delivery Me thod 08/20/22 04:05 MDM - Chest Pain Medical Decision Making Patient care handoff received from Dr. Maher continuation of ED evaluation. I personally saw and evaluated patient and reperformed delgado portions of E/M. Patient seen and evaluated he is improved from Dr. Maher's notes he states he is breathing better he still acting erratically his drug screen is positive for methamphetamine and marijuana he admits to recent use of methamphetamine. He is anxious to go does not wish to stay. He was given Lasix here we will discharge him home with Lasix 20 mg daily potassium supplement 20 mill equivalents daily. Encouraged him to take all of his other medications follow-up with his regular doctor in the next 2 to 3 days. Return if is worsening symptoms Medical Records I reviewed the patient's medical records. Lab Data I reviewed the patient's lab results. 08/20/22 04:19 08/20/22 04:19 Radiology Impressions Chest X-Ray 08/20/22 04:10 IMPRESSION: Large heart with slight evidence of CHF or positive fluid balance. The findings have progressed from 06/10/2022. Laboratory Results WBC 9.8 10^3/uL (4.0-10.0) 08/20/22 04:19 RBC 4.52 10^6/uL (4.1-5.3) 08/20/22 04:19 Hgb 12.9 g/dL (11.7-16.6) 08/20/22 04:19 Hct 40.1 % (42.0-52.0) L 08/20/22 04:19 MCV 88.7 fl (80-94) 08/20/22 04:19 MCH 28.5 pg (28.0-34.0) 08/20/22 04:19 MCHC 32.2 g/dL (30.0-36.0) 08/20/22 04:19 RDW 14.0 % (12.1-15.1) 08/20/22 04:19 Plt Count 283 10^3/cmm (130-400) 08/20/22 04:19 MPV 8.9 fL (7.4-10.4) 08/20/22 04:19 Neut % (Auto) 65.1 % 08/20/22 04:19 Lymph % (Auto) 22.7 % 08/20/22 04:19 [place] % (Auto) 9.6 % 08/20/22 04:19 Eos % (Auto) 1.6 % 08/20/22 04:19 Baso % (Auto) 0.8 % 08/20/22 04:19 Neut # (Auto) 6.35 10^3/uL (1.8-7.7) 08/20/22 04:19 Lymph # (Auto) 2.2 10^3/uL (0.8-4.8) 08/20/22 04:19 [place] # (Auto) 0.9 10^3/uL (0.2-0.9) 08/20/22 04:19 Eos # (Auto) 0.2 10^3/uL (0.0-0.8) 08/20/22 04:19 Baso # (Auto) 0.1 10^3/uL (0.0-0.1) 08/20/22 04:19 Nucleated RBC % (auto) 0 % 08/20/22 04:19 Nucleated RBCs # 0.0 /100WBC 08/20/22 04:19 Sodium 138 mmol/L (136-145) 08/20/22 04:19 Potassium 3.0 mmol/L (3.5-5.1) L 08/20/22 04:19 Chloride 100 mmol/L (98-107) 08/20/22 04:19 Carbon Dioxide 23 mmol/L (22-29) 08/20/22 04:19 Anion Gap 18.0 (5-19) 08/20/22 04:19 BUN 17 mg/dL (6-20) 08/20/22 04:19 Creatinine 0.9 mg/dL (0.7-1.2) 08/20/22 04:19 GFR Calculation 87.0 mL/min (90-130) L 08/20/22 04:19 Glucose 138 mg/dL (65-115) H 08/20/22 04:19 Calculated Osmolality 290 mOsm/kg (285-295) 08/20/22 04:19 Calcium 8.6 mg/dL (8.5-10.5) 08/20/22 04:19 Total Bilirubin 0.3 mg/dL (0.15-1.2) 08/20/22 04:19 AST 39 U/L (0-40) 08/20/22 04:19 ALT 32 U/L (0-41) 08/20/22 04:19 Alkaline Phosphatase 105 U/L (40-130) 08/20/22 04:19 Troponin T Baseline 25 ng/L (0-15) H 08/20/22 04:19 Troponin T 120 Minute 26.34 ng/L (0-15) H 08/20/22 06:27 Delta Troponin T 1.34 ABS# (0-10) 08/20/22 06:27 NT-Pro-B Natriuret Pep 2864 pg/mL (0-125) H 08/20/22 04:19 Total Protein 6.9 g/dL (6.6-8.7) 08/20/22 04:19 Albumin 4.1 g/dL (3.5-5.2) 08/20/22 04:19 Globulin 2.8 g/dL (1.3-4.6) 08/20/22 04:19 Urine Color Yellow (Yellow) 08/20/22 05:42 Urine Appearance Clear (CLEAR) 08/20/22 05:42 Urine pH 5 (5-7) 08/20/22 05:42 Ur Specific [place] 1.015 (1.005-1.030) 08/20/22 05:42 Urine Protein Neg (Negative) 08/20/22 05:42 Urine Glucose (UA) Norm (Normal) 08/20/22 05:42 Urine Ketones Negative (Negative) 08/20/22 05:42 Urine Blood Neg (Negative) 08/20/22 05:42 Urine Nitrate Negative (Negative) 08/20/22 05:42 Urine Bilirubin Neg (Negative) 08/20/22 05:42 Urine Urobilinogen Norm mg/dL (Negative) 08/20/22 05:42 Ur Leukocyte Esterase 1+ (Negative) H 08/20/22 05:42 Urine RBC Rare /hpf (0-2) 08/20/22 05:42 Urine WBC 25-40 /hpf (0-5) H 08/20/22 05:42 Ur Squamous Epith Cells Rare /hpf (0-5) 08/20/22 05:42 Amorphous Sediment Not Reportable 08/20/22 05:42 Urine Bacteria Trace /hpf (NONE) 08/20/22 05:42 Urine Mucus 1+ /hpf 08/20/22 05:42 Urine Opiates Screen Negative ng/mL (Negative) 08/20/22 05:42 Ur Barbiturates Screen Negative ng/mL (Negative) 08/20/22 05:42 Ur Phencyclidine Scrn Negative ng/mL (Negative) 08/20/22 05:42 Ur Amphetamines Screen Positive ng/mL (Negative) H 08/20/22 05:42 U Benzodiazepines Scrn Negative ng/mL (Negative) 08/20/22 05:42 Urine Cocaine Screen Negative ng/mL (Negative) 08/20/22 05:42 U Marijuana (THC) Screen Positive ng/mL (Negative) H 08/20/22 05:42 Discharge Plan Discharge Patient Disposition: Home Clinical Impression: CHF (congestive heart failure), Methamphetamine use disorder, severe, Schizophrenia, chronic condition, Cannabis use disorder Condition: Stable Prescriptions: New Lasix 20 mg tablet 20 mg PO DAILY Qty: 30 0RF potassium chloride 20 mEq tablet,ER particles/crystals 20 meq PO DAILY Qty: 30 0RF No Action gabapentin 800 mg tablet 800 mg PO TID 30 Days Qty: 90 0RF quetiapine [Seroquel] 400 mg tablet 400 mg PO .HS Qty: 30 1RF albuterol sulfate 90 mcg/actuation HFA aerosol inhaler 2 puff inhalation Q6H PRN (Reason: shortness of breath or wheezing) 30 Days Qty: 1 1RF albuterol sulfate 90 mcg/actuation HFA aerosol inhaler 2 inh inhalation Q6H PRN (Reason: shortness of breath or wheezing) Qty: 8.5 0RF aspirin 81 mg Tablet,Delayed Release (Dr/Ec) 81 mg PO QAM 30 Days Qty: 30 1RF ascorbic acid (vitamin C) [Vitamin C] 500 mg Tablet 500 mg PO QAM 30 Days Qty: 30 1RF Discharge Orders: Discharge ED (Routine); Ordered 08/20/22 Ordered By: Escobar Carranza Discharge Diet: Cardiac Discharge Activity: Resume usual activity Patient Instructions: Opioid Safety, Pain Management Activity Restrictions/Additional Instructions: You are seen today for congestive heart failure heart failure is exacerbated by your continued use of methamphetamine strongly encouraged you abstain from all methamphetamine use. Used to start Lasix 20 mg once daily. You also should supplement your potassium with 20 mEq once daily. Continue all your other medications as previously prescribed and follow-up with your primary care doctor within the next week Sign Out Sign Out Data: Patient Sign Out occurred on 08/20/22 at 06:11. Patient's care was discussed, and care was transferred from to Escobar Carranza DO. Coding Level of Care Code ED Barrel Dedenting Machine Operator for Panchito Cooper
[2022-08-20 04:32] LABS: Basophils # 0.1 10^3/uL (0.0-0.1); Basophils % 0.8 %; Eosinophils # 0.2 10^3/uL (0.0-0.8); Eosinophils % 1.6 %; Hematocrit 40.1 % (42.0-52.0); Hemoglobin 12.9 g/dL (11.7-16.6); Lymphocytes # 2.2 10^3/uL (0.8-4.8); Lymphocytes % 22.7 %; Mean Corpuscular HGB Conc 32.2 g/dL (30.0-36.0); Mean Corpuscular Hemoglobin 28.5 pg (28.0-34.0); Mean Corpuscular Volume 88.7 fl (80-94); Mean Platelet Volume 8.9 fL (7.4-10.4); Monocytes # 0.9 10^3/uL (0.2-0.9); Monocytes % 9.6 %; Neutrophils # 6.35 10^3/uL (1.8-7.7); Neutrophils % 65.1 %; Nucleated Red Blood Cells % 0 %; Platelet Count 283 10^3/cmm (130-400); Red Blood Count 4.52 10^6/uL (4.1-5.3); White Blood Count 9.8 10^3/uL (4.0-10.0)
[2022-08-20 04:55] LABS: Troponin(5th) Baseline 25 ng/L (0-15)
[2022-08-20 04:59] LABS: Alanine Aminotransferase 32 U/L (0-41); Albumin Level 4.1 g/dL (3.5-5.2); Alkaline Phosphatase 105 U/L (40-130); Aspartate Amino Transferase 39 U/L (0-40); Blood Urea Nitrogen 17 mg/dL (6-20); Calcium 8.6 mg/dL (8.5-10.5); Carbon Dioxide 23 mmol/L (22-29); Chloride 100 mmol/L (98-107); Globulin 2.8 g/dL (1.3-4.6); Glucose 138 mg/dL (65-115); Osmolality Calculated 290 mOsm/kg (285-295); Sodium 138 mmol/L (136-145); Total Bilirubin 0.3 mg/dL (0.15-1.2); Total Protein 6.9 g/dL (6.6-8.7)
[2022-08-20 05:06] LABS: NT Pro B Type Natriuretic Pept 2864 pg/mL (0-125)
[2022-08-20] MEDS: potassium chloride ER 20 mEq Tablet 40 MEQ PO (05:18)
[2022-08-20] MEDS: FUROsemide 10 mg/mL SDV 10mL 60 MG IVP (05:18)
[2022-08-20 05:22] VITALS: BP 108/73; PULSE 101; RESP 20; O2SAT 95
[2022-08-20 05:30] VITALS: BP 131/95; PULSE 99; RESP 20; O2SAT 93
[2022-08-20 06:00] LABS: Amphetamines Screen Urine Positive (Negative); Barbiturates Screen Urine Negative (Negative); Benzodiazepines Screen Urine Negative (Negative); Cocaine Screen Urine Negative (Negative); Opiate Screen Urine Negative (Negative); PCP Screen Urine Negative (Negative); THC Screen Urine Positive (Negative)
--- NOTE | 2022-08-20 06:10 | ECG_ITS ---
[facility] Test Date: 2022-08-20 Pat Name: David Cortes Department: Room: Gender: Male [employer] Consultant: : 1965 Requested By: Fany Maher Order Number: [id number] Mahesh MD: Alexis Adan M.D. Measurements Intervals [place] Rate: 99 P: 33 AL: 164 QRS: 28 QRSD: 99 T: 58 QT: 363 QTc: 467 Interpretive Statements SINUS RHYTHM POSSIBLE LEFT ATRIAL ENLARGEMENT [-0.1mV P-WAVE IN V1/V2] Compared to ECG 03/27/2022 19:41:18 No significant changes Electronically Signed On 08-20-2022 7:08:43 EQUIPMENT INSPECTOR by Alexis Adan M.D. [email or web address]
[2022-08-20] MEDS: potassium chloride oral liq 20 mEq/15 mL UDC 60 MEQ PO (06:20)
[2022-08-20 06:24] LABS: Add Urine Microscopic? YES; Bilirubin Urine Neg (Negative); Blood Urine Neg (Negative); Glucose Urine UA Norm (Normal); Ketones Urine Negative (Negative); Leukocyte Esterase Urine 1+ (Negative); Nitrate Urine Negative (Negative); Protein Urine Neg (Negative); RBC Urine RARE /hpf (0-2); Specific Gravity, Urine 1.015 (1.005-1.030); Urine Appearance Clear (CLEAR); Urine Color Yellow (Yellow); Urobilinogen Urine Norm (Negative); WBC Urine 25-40 /hpf (0-5); pH Urine 5 (5-7)
[2022-08-20 06:25] LABS: Bacteria Urine TRACE /hpf; Mucus Urine 1+ /hpf; Squamous Epithelial Cell Urine RARE /hpf (0-5)
[2022-08-20 06:26] LABS: Add Urine Culture? Yes
[2022-08-20 06:30] VITALS: BP 117/100; PULSE 101; RESP 22; O2SAT 95
[2022-08-20 07:12] LABS: Troponin 5 2HR 26.34 ng/L (0-15)
[2022-08-20 07:18] LABS: Troponin 5 2HR Delta 1.34 ABS# (0-10)
== END 2022-08-20 08:14 | disposition home or self-care (01) ==
PROVIDERS: Emergency Medicine; Emergency Provider Family Medicine
DX: F20.9 Schizophrenia, unspecified (principal); F15.90 Other stimulant use, unspecified, uncomplicated; F12.90 Cannabis use, unspecified, uncomplicated; I11.0 Hypertensive heart disease with heart failure; I50.9 Heart failure, unspecified; Z79.82 Long term (current) use of aspirin; J44.9 Chronic obstructive pulmonary disease, unspecified; Z87.891 Personal history of nicotine dependence
CPT/HCPCS: 71045; 80053; 80306; 81001; 83880; 84484; 85025; 87086; 93005; 96374; 96375; 99285; J1940; J2060

== ENCOUNTER 2022-08-24 19:19 | Inpatient (IN) | payer MEDICAID, SELFPAY ==
[2022-08-24 19:28] VITALS: BP 161/113; PULSE 69; RESP 14; TEMP 37; O2SAT 93; BMI 30.5
[2022-08-24 19:50] LABS: Basophils # 0.1 10^3/uL (0.0-0.1); Basophils % 0.6 %; Eosinophils # 0.1 10^3/uL (0.0-0.8); Eosinophils % 1.1 %; Hematocrit 43.8 % (42.0-52.0); Hemoglobin 14.2 g/dL (11.7-16.6); Lymphocytes # 1.7 10^3/uL (0.8-4.8); Lymphocytes % 14.8 %; Mean Corpuscular HGB Conc 32.4 g/dL (30.0-36.0); Mean Corpuscular Hemoglobin 28.9 pg (28.0-34.0); Monocytes # 0.7 10^3/uL (0.2-0.9); Neutrophils # 8.74 10^3/uL (1.8-7.7); Neutrophils % 77.1 %; Nucleated Red Blood Cells % 0 %; Platelet Count 295 10^3/cmm (130-400); Red Blood Count 4.92 10^6/uL (4.1-5.3); Red Cell Distribution Width 13.7 % (12.1-15.1); White Blood Count 11.3 10^3/uL (4.0-10.0)
[2022-08-24 20:12] LABS: Alanine Aminotransferase 25 U/L (0-41); Albumin Level 4.1 g/dL (3.5-5.2); Alkaline Phosphatase 103 U/L (40-130); Anion Gap 16.4 (5-19); Aspartate Amino Transferase 15 U/L (0-40); Blood Urea Nitrogen 13 mg/dL (6-20); Carbon Dioxide 25 mmol/L (22-29); Chloride 100 mmol/L (98-107); Globulin 2.7 g/dL (1.3-4.6); Glomerular Filtration Rate 99.6 mL/min (90-130); Glucose 132 mg/dL (65-115); Osmolality Calculated 286 mOsm/kg (285-295); Potassium 4.4 mmol/L (3.5-5.1); Sodium 137 mmol/L (136-145); Total Bilirubin 0.3 mg/dL (0.15-1.2); Total Protein 6.8 g/dL (6.6-8.7)
[2022-08-24 20:19] LABS: Acetaminophen < 5.0 ug/mL (10-30); Alcohol Level < 10 mg/dL (0-10); Salicylate < 0.3 mg/dL (3-10)
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
[2022-08-24 22:06] VITALS: BP 120/75; PULSE 90; RESP 17; TEMP 36.6; O2SAT 92
[2022-08-24 23:47] LABS: Amphetamines Screen Urine Negative (Negative); Barbiturates Screen Urine Negative (Negative); Benzodiazepines Screen Urine Negative (Negative); Cocaine Screen Urine Negative (Negative); Opiate Screen Urine Negative (Negative); PCP Screen Urine Negative (Negative); THC Screen Urine Positive (Negative)
[2022-08-25 04:51] VITALS: BMI 30.5
[2022-08-25] MEDS: ascorbic acid 500 mg Tablet PO (09:58)
[2022-08-25] MEDS: aspirin 81 mg EC Tablet PO (09:58)
[2022-08-25] MEDS: gabapentin 400 mg Capsule 800 MG PO ×3 (09:59→20:55)
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
[2022-08-25 14:00] VITALS: BP 149/89; PULSE 87; RESP 17; TEMP 37.1; O2SAT 96
[2022-08-25 16:31] VITALS: PULSE 90; RESP 16; O2SAT 97
[2022-08-25] MEDS: albuterol 2.5 mg/3 mL Neb INHALATION (16:38)
[2022-08-25 19:36] VITALS: BP 168/78; PULSE 85; RESP 18; TEMP 37.1; O2SAT 93
[2022-08-26] MEDS: aspirin 81 mg EC Tablet PO (08:01)
[2022-08-26] MEDS: gabapentin 400 mg Capsule 800 MG PO ×2 (08:01→15:34)
[2022-08-26] MEDS: ascorbic acid 500 mg Tablet PO (08:01)
[2022-08-26] MEDS: tamsulosin 0.4 mg Capsule PO (08:01)
[2022-08-26 10:20] VITALS: PULSE 95; O2SAT 96
[2022-08-26 13:45] VITALS: BP 136/78; PULSE 89; RESP 18; TEMP 37; O2SAT 93
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
[2022-08-26] MEDS: docusate sodium 100 mg Capsule PO (17:44)
[2022-08-26] MEDS: ondansetron 4 MG Tablet PO ×2 (17:44→20:36)
[2022-08-26] MEDS: ALBUTEROL 2 EACH INHALATION (18:08)
[2022-08-26 18:11] VITALS: BP 169/107; PULSE 77; RESP 24; TEMP 37.2; O2SAT 99
--- NOTE | 2022-08-26 18:12 | PC.NURSE ---
Pt heard retching; staff reported the pt had vomited in the bathroom. Pt resting on his right side. Audible wheezes heard. Pt turned to his back for his blood pressure. 169/107 on right arm 77 pulse-24 respirations-99%; 156/105 on left arm -77 pulse -24 respirations -99% Temp 98.9. Pt said he feels awful. Wondering if it's because of his flu shot yesterday. Pt reported he vomited food from lunch. Said he hasn't had a bowel movement. Reports passing gas. Abd is large and distended with hyperactive bowel sounds noted throughout. Lungs are clear with a few expiratory wheezes noted. Pt used his albuterol inhaler, took a colace and Zofran. Resting quietly. Dr. Pozo notified. Instructed to watch pt and notify him if changes.
[2022-08-26] MEDS: quetiapine 300 mg Tablet 600 MG PO (21:06)
[2022-08-26 21:31] VITALS: BP 163/97; PULSE 112; RESP 20; TEMP 37; O2SAT 94
[2022-08-26] MEDS: promethazine 25 mg/mL SDV 1 mL IM (22:03)
[2022-08-26] MEDS: OLANZapine 5 mg ODT PO (22:38)
[2022-08-27] MEDS: trazodone 50 mg Tablet PO (00:20)
[2022-08-27] MEDS: hyDROXYzine 25 mg Capsule 50 MG PO (00:21)
[2022-08-27] MEDS: promethazine 25 mg/mL SDV 1 mL IM (08:35)
[2022-08-27 08:46] VITALS: BP 112/73; PULSE 83; RESP 22; TEMP 36.9; O2SAT 91
--- NOTE | 2022-08-27 08:49 | PC.NURSE ---
Patient found to be nauseated and vomiting this morning. Nurse gave PRN phenergan
[2022-08-27] MEDS: ascorbic acid 500 mg Tablet PO (09:29)
[2022-08-27] MEDS: magnesium hydroxide 30 mL UDC PO (09:29)
[2022-08-27] MEDS: tamsulosin 0.4 mg Capsule PO (09:29)
[2022-08-27] MEDS: aspirin 81 mg EC Tablet PO (09:29)
[2022-08-27] MEDS: gabapentin 400 mg Capsule 800 MG PO ×3 (09:29→20:02)
[2022-08-27 14:00] VITALS: BP 127/78; PULSE 85; RESP 18; TEMP 36.9; O2SAT 92
--- NOTE | 2022-08-27 15:47 | P.NPUPN_ITS ---
Subjective NPU Subjective: 57-year-old white male with schizoaffective disorder admitted with depressed mood and suicidal ideation with the presence of continued psychosis with a history of polysubstance abuse. The patient continue isolate himself on the milieu. He reported having several episodes of emesis yesterday. He had reported some sleep continuity disruption and difficulties with falling asleep last night as he states that he may have thrown up his Seroquel and then promptly flushed it down the toilet. Patient continued to show evidence of apathy and lack of drive on the unit as he had continued complaints of others being to blame for him being here in the hospital. He had minimized any recent legal difficulties and had minimized any recent methamphetamine use in the last week. He had reported continued distrust of others and stated that he did not wish to consider any other medications to manage his mood. Mental Status Exam MSE Comments: There was no evidence of any abnormal involuntary motor mo vements tics or tremors appreciated. He was malodorous and unkempt in regards to his self-care. He had poor eye contact and appeared disinterested on interview. His mood was described as terrible. His affect was blunted. Thought process: Was linear. Thought content: He endorsed no suicidal ideation or homicidal ideation. There was some evidence of thought blocking. He denied any homicidal ideation. There was continued evidence of delusional thinking and paranoia. There is clear evidence of overvalued ideas. He endorsed auditory hallucinations and did appear at times to be responding to internal stimuli. He was alert and oriented to person place and year, day of week, month but not date. His insight is poor. His impulse control is impaired. His judgment at this time is impaired as well. Vitals/I&O/Wt Last Vital Signs Temp 98.4 F 08/27/22 08:46 Pulse 83 08/27/22 08:46 Resp 22 H 08/27/22 08:46 BP 112/73 08/27/22 08:46 Pulse Ox 91 08/27/22 08:46 O2 Del Method 08/26/22 18:11 Data NPU 08/24/22 19:40 08/24/22 19:40 A&P Assessment and plan (1) Schizophrenia, chronic condition: (2) Methamphetamine use disorder, severe: (3) Psychotic disorder due to psychoactive substance: (4) Methamphetamine abuse: (5) Suicidal ideation: (6) On combination antipsychotic drug therapy: Plan This is a 57-year-old possibly male with long history of mental health and addiction issues who presents desiring to be tapered and discontinued off Seroquel in efforts of entering in suzette based program despite the necessity for the use of psychotropic medications. ?1.? Continue Seroquel at 600mg at night. Continue Gabapentin as prescribed. ?2.? Continue every 15 minute checks for safety. ?3.? Encourage individual, group and milieu therapies. ?4.? Encourage sober living treatment after discharge at the highest level of care to which he is willing to commit. Involuntary Hold Information 96 Hour Hold: 96 Hour Involuntary Admission: No Attestations NPU 2 Medical Necessity Statement*: Inpatient hospitalization is medically necessary and the clinically appropriate intervention at this time.? We will initiate medi cations and make changes as indicated. The patient will be on the NPU for at least 2 midnights with likely length of stay 7 to 10 days. Coding Level of Care Code Acute Code for [facility] Diagnoses Schizophrenia, chronic condition F20.9 Methamphetamine use disorder, severe F15.20 Psychotic disorder due to psychoactive substance F19.959 Methamphetamine abuse F15.10 Suicidal ideation R45.851 On combination antipsychotic drug therapy Z79.899
[2022-08-27] MEDS: docusate sodium 100 mg Capsule PO (16:06)
[2022-08-27] MEDS: ALBUTEROL 2 EACH INHALATION (17:31)
[2022-08-27] MEDS: quetiapine 300 mg Tablet 600 MG PO (20:02)
[2022-08-27 20:06] VITALS: BP 147/95; PULSE 103; RESP 16; TEMP 37.1; O2SAT 92
[2022-08-28 06:00] VITALS: BP 127/75; PULSE 109; RESP 18; TEMP 36.8; O2SAT 95
[2022-08-28] MEDS: loperamide 2 mg Capsule PO (06:16)
[2022-08-28] MEDS: ascorbic acid 500 mg Tablet PO (09:16)
[2022-08-28] MEDS: aspirin 81 mg EC Tablet PO (09:16)
[2022-08-28] MEDS: tamsulosin 0.4 mg Capsule PO (09:16)
[2022-08-28] MEDS: gabapentin 400 mg Capsule 800 MG PO ×2 (09:17→14:59)
[2022-08-28 14:00] VITALS: BP 138/82; PULSE 86; RESP 20; TEMP 36.6; O2SAT 97
--- NOTE | 2022-08-28 16:53 | W.PM.NPUPNS ---
Subjective NPU Subjective: 57-year-old white male with schizoaffective disorder admitted with depressed mood and suicidal ideation with the presence of continued psychosis with a history of polysubstance abuse. The patient had reported feeling better with no episodes of emesis today. He reported that he had not been on Abilify in the past and reported that he continued to struggle with auditory hallucinations. He reported that they have been talking to him for years and reported that they were distracting to him. He also reported chronic struggles with execution and completion of tasks. He had reported chronic problems with planning and managing his assets. He had reported a long history of being unable to get along with his peers and stated that he had received treatment for his psychotic symptoms while he was incarcerated for several years. Patient had reported that he had not been welcome at previous shelters and reported concerns about where he would stay when he was discharged although he reported that he would likely return to his trailer if he had it removed from him the impound. Mental Status Exam MSE Comments: He was lying in bed disheveled appearance with minimal eye contact and evidence of relative apathy. There is no evidence of any abnormal involuntary motor movements tics or tremors appreciated. His mood was described as okay. His affect appeared mood incongruent and blunted. There was some evidence of thought blocking. He denied any suicidal or homicidal ideation. There was continued evidence of delusional thinking and paranoia. There is clear evidence of overvalued ideas. He endorsed auditory hallucinations and did appear at times to be responding to internal stimuli. He was alert and oriented to person place and situation. His insight is poor. His impulse control is impaired. His judgment at this time is impaired as well. Vitals/I&O/Wt Last Vital Signs Temp 97.8 F 08/28/22 14:00 Pulse 86 08/28/22 14:00 Resp 20 H 08/28/22 14:00 BP 138/82 08/28/22 14:00 Pulse Ox 97 08/28/22 14:00 O2 Del Method 08/26/22 18:11 Data NPU 08/24/22 19:40 08/24/22 19:40 A&P Assessment and plan (1) Schizophrenia, chronic condition: (2) Methamphetamine use disorder, severe: (3) Psychotic disorder due to psychoactive substance: (4) Methamphetamine abuse: (5) Suicidal ideation: (6) On combination antipsychotic drug therapy: Plan This is a 57-year-old possibly male with long history of mental health and addiction issues who presents desiring to be tapered and discontinued off Seroquel in efforts of entering in suzette based program despite the necessity for the use of psychotropic medications. ?1.? Continue Seroquel at 600mg at night. Continue Gabapentin as prescribed. Add abilify 5mg daily to target psychosis. ?2.? Continue every 15 minute checks for safety. ?3.? Encourage individual, group and milieu therapies. ?4.? Encourage sober living treatment after discharge at the highest level of care to which he is willing to commit. Involuntary Hold Information 96 Hour Hold: 96 Hour Involuntary Admission: No Attestations NPU Medical Necessity Statement*: Inpatient hospitalization is medically necessary and the clinically appropriate intervention at this time.? We will initiate medications and make changes as indicated. The patient will be on the NPU for at least 2 midnights with likely length of stay 7 to 10 days. Coding Level of Care Code Acute Code for [facility] Diagnoses Schizophrenia, chronic condition F20.9 Methamphetamine use disorder, severe F15.20 Psychotic disorder due to psychoactive substance F19.959 Methamphetamine abuse F15.10 Suicidal ideation R45.851 On combination antipsychotic drug therapy Z79.893
[2022-08-28] MEDS: quetiapine 300 mg Tablet 600 MG PO (20:25)
[2022-08-28 20:45] VITALS: BP 127/82; PULSE 86; RESP 16; TEMP 36.9; O2SAT 95
--- NOTE | 2022-08-28 21:00 | PC.NURSE ---
Patient refused scheduled Gabapentin this evening. Reinforced importance of medication compliance. Patient stated I don't think I really need it. Encouraged patient to come to staff if he changes his mind. Voiced understanding.
[2022-08-29] MEDS: trazodone 50 mg Tablet PO (02:10)
[2022-08-29] MEDS: ascorbic acid 500 mg Tablet PO (08:58)
[2022-08-29] MEDS: ARIPiprazole 10 mg Tablet 5 MG PO (08:58)
[2022-08-29] MEDS: tamsulosin 0.4 mg Capsule PO (08:58)
[2022-08-29] MEDS: gabapentin 400 mg Capsule 800 MG PO ×2 (08:58→15:12)
[2022-08-29] MEDS: aspirin 81 mg EC Tablet PO (09:02)
[2022-08-29 14:00] VITALS: BP 120/70; PULSE 88; RESP 18; TEMP 36.6; O2SAT 96
[2022-08-29 14:23] LABS: Basophils % 0.4 %; Eosinophils # 0.2 10^3/uL (0.0-0.8); Eosinophils % 2.4 %; Hematocrit 46.1 % (42.0-52.0); Hemoglobin 14.8 g/dL (11.7-16.6); Lymphocytes # 1.8 10^3/uL (0.8-4.8); Mean Corpuscular HGB Conc 32.1 g/dL (30.0-36.0); Mean Corpuscular Volume 90.4 fl (80-94); Mean Platelet Volume 8.9 fL (7.4-10.4); Monocytes # 0.7 10^3/uL (0.2-0.9); Monocytes % 9.9 %; Neutrophils # 4.62 10^3/uL (1.8-7.7); Neutrophils % 62.5 %; Nucleated Red Blood Cells % 0 %; Platelet Count 320 10^3/cmm (130-400); Red Cell Distribution Width 13.9 % (12.1-15.1); White Blood Count 7.4 10^3/uL (4.0-10.0)
[2022-08-29 14:43] LABS: Alanine Aminotransferase 28 U/L (0-41); Alkaline Phosphatase 90 U/L (40-130); Aspartate Amino Transferase 18 U/L (0-40); Globulin 2.8 g/dL (1.3-4.6); Total Bilirubin 0.2 mg/dL (0.15-1.2); Total Protein 6.8 g/dL (6.6-8.7)
[2022-08-29] MEDS: ALBUTEROL 2 EACH INHALATION ×2 (16:41→20:59)
--- NOTE | 2022-08-29 17:14 | P.NPUPN_ITS ---
Subjective NPU Subjective: 57-year-old white male with schizoaffective disorder admitted with depressed mood and suicidal ideation with the presence of continued psychosis with a history of polysubstance abuse. He continued to appear somewhat needy on the unit as he had reported that the Abilify had made him feel more anxious today. He did not have any episodes of emesis. He had reported having difficulties sleeping still on Seroquel 600 mg at night and requested an increase in this medication. He had reported intermittent auditory hallucinations. He reported not having as intense depression. He had been agr eeable to considering substance abuse treatment particularly inpatient to help him with his presumably significant methamphetamine use. Mental Status Exam MSE Comments: He had a disheveled appearance he appeared older than his stated age with intermittent eye contact. There is no evidence of any abn ormal involuntary motor movements tics or tremors appreciated. His mood was described as all right. His affect appeared mood incongruent and blunted. There was some evidence of thought blocking. He denied any suicidal or homicidal ideation. There was continued evidence of delusional thinking and paranoia. There is clear evidence of overvalued ideas. He endorsed auditory hallucinations and did appear at times to be responding to internal stimuli. He was alert and oriented to person place and situation. His insight is poor. His impulse control is impaired. His judgment at this time is impaired as well. Vitals/I&O/Wt Last Vital Signs Temp 98 F 08/29/22 14:00 Pulse 88 08/29/22 14:00 Resp 18 08/29/22 14:00 BP 120/70 08/29/22 14:00 Pulse Ox 96 08/29/22 14:00 O2 Del Method 08/29/22 14:00 Data NPU 08/29/22 14:14 08/24/22 19:40 A&P Assessment and plan (1) Schizophrenia, chronic condition: (2) Methamphetamine use disorder, severe: (3) Psychotic disorder due to psychoactive substance: (4) Methamphetamine abuse: (5) Suicidal ideation: (6) On combination antipsychotic drug therapy: Plan This is a 57-year-old possibly male with long history of mental health and addiction issues who presents desiring to be tapered and discontinued off Seroquel in efforts of entering in suzette based program despite the necessity for the use of psychotropic medications. ?1.? Increase Seroquel to 800 mg at night. Continue Gabapentin as prescribed. Discontinue Abilify today at request of patient. ?2.? Continue every 15 minute checks for safety. ?3.? Encourage individual, group and milieu therapies. ?4.? Encourage sober living treatment after discharge at the highest level of care to which he is willing to commit. Involuntary Hold Information 96 Hour Hold: 96 Hour Involuntary Admission: No Attestations NPU Medical Necessity Statement*: Inpatient hospitalization is medically necessary and the clinically appropriate intervention at this time.? We will initiate medications and make changes as indicated. The patient length of stay is 7 to 10 days. Coding Level of Care Code Acute Code for [facility] Diagnoses Schizophrenia, chronic condition F20.9 Methamphetamine use disorder, severe F15.20 Psychotic disorder due to psychoactive substance F19.959 Methamphetamine abuse F15.10 Suicidal ideation R45.851 On combination antipsychotic drug therapy Z79.899
[2022-08-29 20:51] VITALS: BP 171/92; PULSE 94; RESP 18; TEMP 36.4; O2SAT 94
[2022-08-29] MEDS: quetiapine 100 mg Tablet 200 MG PO (20:56)
[2022-08-29] MEDS: quetiapine 300 mg Tablet 600 MG PO (21:01)
--- NOTE | 2022-08-29 21:05 | PC.NURSE ---
Two 400mg caps of Gabapentin was wasted because patient refused after opening. Witnessed by Jaida Grace RN
[2022-08-30] MEDS: gabapentin 400 mg Capsule 800 MG PO ×3 (10:42→21:10)
[2022-08-30] MEDS: aspirin 81 mg EC Tablet PO (10:43)
[2022-08-30] MEDS: ascorbic acid 500 mg Tablet PO (10:43)
[2022-08-30] MEDS: tamsulosin 0.4 mg Capsule PO (10:43)
[2022-08-30] MEDS: ALBUTEROL 2 EACH INHALATION (13:09)
[2022-08-30 14:00] VITALS: BP 140/83; PULSE 84; RESP 18; TEMP 36.7; O2SAT 96
--- NOTE | 2022-08-30 16:14 | W.PM.NPUPNS ---
Subjective NPU Subjective: 57-year-old white male with schizoaffective disorder admitted with depressed mood and suicidal ideation with the presence of continued psychosis with a history of polysubstance abuse. The patient had reported improved sleep with the Seroquel. He had reported no suicidal thoughts. He had reported a lack of energy and stated having periods of depression with low motivation. He reported no side effects from his Seroquel other than increased appetite. He had continued to isolate himself on the milieu. He had reported continued frustration with his living situation. He had reported that he wished to be considered for inpatient substance abuse treatment as he had been unable to stop use of methamphetamine despite adverse consequences. He had been unable to identify triggers that had led to his use of methamphetamine. He had acknowledged that his methamphetamine use had contributed to his Mental Status Exam MSE Comments: He had a disheveled appearance he appeared older than his stated age with intermittent eye contact as he was lying in bed in the dark. There is no evidence of any abnormal involuntary motor movements tics or tremors appreciated. His mood was described as okay.. His affect appeared mood incongruent and blunted. There was some evidence of thought blocking. He denied any suicidal or homicidal ideation. There was continued evidence of delusional thinking and paranoia. There is clear evidence of overvalued ideas. He denied auditory hallucinations and did not appear to be responding to internal stimuli. He was alert and oriented to person place and situation. His insight is poor. His impulse control is impaired. His judgment at this time is impaired as well. Vitals/I&O/Wt Last Vital Signs Temp 98.1 F 08/30/22 14:00 Pulse 84 08/30/22 14:00 Resp 18 08/30/22 14:00 BP 140/83 08/30/22 14:00 Pulse Ox 96 08/30/22 14:00 O2 Del Method 08/29/22 20:51 Data NPU 08/29/22 14:14 08/24/22 19:40 Micro: Microbiology 08/29/22 14:55 Occult Blood (FIT) - Final Stool Routine Collection Microbiology 08/29/22 14:55 Stool Routine Collection Occult Blood (FIT) - Final A&P Assessment and plan (1) Schizophrenia, chronic condition: (2) Methamphetamine use disorder, severe: (3) Psychotic disorder due to psychoactive substance: (4) Methamphetamine abuse: (5) Suicidal ideation: (6) On combination antipsychotic drug therapy: Plan This is a 57-year-old possibly male with long history of mental health and addiction issues who presents desiring to be tapered and discontinued off Seroquel in efforts of entering in suzette based program despite the necessity for the use of psychotropic medications. ?1.? Continue Seroquel at 800 mg at night. Continue Gabapentin as prescribed. Add Wellbutrin XL 150 mg daily to target depression. ?2.? Continue every 15 minute checks for safety. ?3.? Encourage individual, group and milieu therapies. ?4.? Encourage sober living treatment after discharge at the highest level of care to which he is willing to commit. Involuntary Hold Information 96 Hour Hold: 96 Hour Involuntary Admission: No Attestations NPU Medical Necessity Statement*: Inpatient hospitalization is medically necessary and the clinically appropriate intervention at this time.? We will initiate medications and make changes as indicated. The patient length of stay is 7 to 10 days. Coding Level of Care Code Acute Code for [facility] Diagnoses Schizophrenia, chronic condition F20.9 Methamphetamine use disorder, severe F15.20 Psychotic disorder due to psychoactive substance F19.959 Methamphetamine abuse F15.10 Suicidal ideation R45.851 On combination antipsychotic drug therapy Z79.899
[2022-08-30] MEDS: quetiapine 100 mg Tablet 200 MG PO (21:10)
[2022-08-30] MEDS: quetiapine 300 mg Tablet 600 MG PO (21:10)
[2022-08-30 21:31] VITALS: BP 140/90; PULSE 99; RESP 16; TEMP 37.2; O2SAT 98
[2022-08-31 06:00] VITALS: BP 134/64; PULSE 91; RESP 18; TEMP 36.4; O2SAT 93
[2022-08-31] MEDS: aspirin 81 mg EC Tablet PO (08:12)
[2022-08-31] MEDS: ALBUTEROL 2 EACH INHALATION (08:12)
[2022-08-31] MEDS: gabapentin 400 mg Capsule 800 MG PO ×3 (08:12→20:48)
[2022-08-31] MEDS: buPROPion XL (24 HR) 150 mg Tablet PO (08:12)
[2022-08-31] MEDS: ascorbic acid 500 mg Tablet PO (08:12)
--- NOTE | 2022-08-31 09:35 | PC.NURSE ---
Patient refused tamsulosin and stated it was because, I'm peeing fine. I don't need that stuff. This RN explained the importance of being consistent with this medication and that he could talk to the doctor about d/c it if need be.
[2022-08-31 14:00] VITALS: BP 130/81; PULSE 71; RESP 18; TEMP 36.3; O2SAT 99
--- NOTE | 2022-08-31 14:37 | P.NPUPN_ITS ---
Subjective NPU Subjective: 57-year-old white male with schizoaffective disorder admitted with depressed mood and suicidal ideation with the presence of continued psychosis with a history of polysubstance abuse. He had reported some improved energy with the Wellbutrin. He had reported having periods of depression in the past but states that he had frequently stopped taking his medications. He had reported motivation to entering onto inpatient substance abuse treatment programs if available. He had been compliant and redirectable on the [facility]. He had reported significant pain associated with his back and legs. He had minimized any suicidal ideation at this time. He reported continued low energy. He had reported some improved sleep with the addition of Seroquel. He had been able to attend groups on the unit yesterday without any difficulties. Mental Status Exam MSE Comments: He had a disheveled appearance he appeared older than his stated age with intermittent eye contact as he was seen on the [facility] in no acute distress today. There is no evidence of any abnormal involuntary motor movements tics or tremors appreciated. His mood was described as a little better. His affect remained somewhat subdued. There was no evidence of thought blocking today. He denied any suicidal or homicidal ideation. He appeared less paranoid though he continued to have some level of grandiosity and overvalued ideas. He denied auditory hallucinations and did not appear to be responding to internal stimuli. He was alert and oriented to person place and situation. His insight is poor. His impulse control is impaired. His judgment at this time is impaired as well. Vitals/I&O/Wt Last Vital Signs Temp 97.6 F 08/31/22 06:00 Pulse 91 08/31/22 06:00 Resp 18 08/31/22 06:00 BP 134/64 08/31/22 06:00 Pulse Ox 93 08/31/22 06:00 O2 Del Method 08/31/22 06:00 Data NPU 08/29/22 14:14 08/24/22 19:40 A&P Assessment and plan (1) Schizophrenia, chronic condition: (2) Methamphetamine use disorder, severe: (3) Psychotic disorder due to psychoactive substance: (4) Methamphetamine abuse: (5) Suicidal ideation: (6) On combination antipsychotic drug therapy: Plan This is a 57-year-old possibly male with long history of mental health and addiction issues who presents desiring to be tapered and discontinued off Seroquel in efforts of entering in suzette based program despite the necessity for the use of psychotropic medications. ?1.? Continue Seroquel at 800 mg at night. Continue Gabapentin as prescribed. Continue Wellbutrin XL 150 mg daily to target depression with titration as needed. ?2.? Continue every 15 minute checks for safety. ?3.? Encourage individual, group and milieu therapies. ?4.? Encourage sober living treatment after discharge at the highest level of care to which he is willing to commit. Involuntary Hold Information 96 Hour Hold: 96 Hour Involuntary Admission: No Attestations NPU Medical Necessity Statement*: Inpatient hospitalization is medically necessary and the clinically appropriate intervention at this time.? We will initiate medications and make changes as indicated. The patient length of stay is 7 to 10 days. Coding Level of Care Code Acute Code for [facility] Diagnoses Schizophrenia, chronic condition F20.9 Methamphetamine use disorder, severe F15.20 Psychotic disorder due to psychoactive substance F19.959 Methamphetamine abuse F15.10 Suicidal ideation R45.851 On combination antipsychotic drug therapy Z79.899
[2022-08-31] MEDS: blistex lip oint 7 gm Tube 1 APPLIC TOPICAL (16:59)
[2022-08-31] MEDS: neomycin-poly-bacitracin oint 28 gm 1 APPLIC TOPICAL (17:49)
[2022-08-31] MEDS: quetiapine 100 mg Tablet 200 MG PO (20:48)
[2022-08-31] MEDS: quetiapine 300 mg Tablet 600 MG PO (20:52)
[2022-08-31 21:22] VITALS: BP 163/95; PULSE 85; RESP 18; TEMP 37.1; O2SAT 93
[2022-09-01 06:00] VITALS: BP 118/76; PULSE 88; RESP 18; TEMP 36.3; O2SAT 94
[2022-09-01] MEDS: aspirin 81 mg EC Tablet PO (09:57)
[2022-09-01] MEDS: tamsulosin 0.4 mg Capsule PO (09:57)
[2022-09-01] MEDS: gabapentin 400 mg Capsule 800 MG PO ×3 (09:57→21:35)
[2022-09-01] MEDS: ALBUTEROL 2 EACH INHALATION ×2 (09:58→17:00)
[2022-09-01] MEDS: buPROPion XL (24 HR) 150 mg Tablet PO (09:58)
[2022-09-01] MEDS: ascorbic acid 500 mg Tablet PO (10:01)
[2022-09-01 14:00] VITALS: BP 105/62; PULSE 93; RESP 18; TEMP 36.6; O2SAT 91
--- NOTE | 2022-09-01 16:05 | W.PM.NPUPNS ---
Subjective NPU Subjective: 57-year-old white male with schizoaffective disorder admitted with depressed mood and suicidal ideation with the presence of continued psychosis with a history of polysubstance abuse. He had reported some improved energy with the Wellbutrin. He reported continued depression. He had reported significant pain issues. He had reported that the voices were no longer present. He had reported improved sleep. He had been more compliant on the milieu and reported that his mind was not racing. He denied any feelings of hopelessness today. He denied any episodes of emesis today. Mental Status Exam MSE Comments: He had a disheveled appearance he appeared older than his stated age with intermittent eye contact as he was seen on the milieu in no acute distress today. There is no evidence of any abnormal involuntary motor movements tics or tremors appreciated. His mood was described as a okay. His affect remained somewhat subdued. There was no evidence of thought blocking today. He denied any suicidal or homicidal ideation. He appeared less paranoid though he continued to have some level of grandiosity and overvalued ideas. He denied auditory hallucinations and did not appear to be responding to internal stimuli. He was alert and oriented to person place and situation. His insight is poor. His impulse control is impaired. His judgment at this time is impaired as well. Vitals/I&O/Wt Last Vital Signs Temp 98 F 09/01/22 14:00 Pulse 93 09/01/22 14:00 Resp 18 09/01/22 14:00 BP 105/62 09/01/22 14:00 Pulse Ox 91 09/01/22 14:00 O2 Del Method 09/01/22 06:00 Weight last 48 hrs Weight 111.244 kg Data NPU 08/29/22 14:14 08/24/22 19:40 A&P Assessment and plan (1) Schizophrenia, chronic condition: (2) Methamphetamine use disorder, severe: (3) Psychotic disorder due to psychoactive substance: (4) Methamphetamine abuse: (5) Suicidal ideation: (6) On combination antipsychotic drug therapy: Plan This is a 57-year-old possibly male with long history of mental health and addiction issues who presents desiring to be tapered and discontinued off Seroquel in efforts of entering in suzette based program despite the necessity for the use of psychotropic medications. ?1.? Continue Seroquel at 800 mg at night. Continue Gabapentin as prescribed. Increase Wellbutrin XL to 300 mg daily to target depression with titration as needed. ?2.? Continue every 15 minute checks for safety. ?3.? Encourage individual, group and milieu therapies. ?4.? Encourage sober living treatment after discharge at the highest level of care to which he is willing to commit. Involuntary Hold Information 96 Hour Hold: 96 Hour Involuntary Admission: No Attestations NPU Medical Necessity Statement*: Inpatient hospitalization is medically necessary and the clinically appropriate intervention at this time.? We will initiate medications and make changes as indicated. The patient length of stay is 7 to 10 days. Coding Level of Care Code Acute Code for [facility] Diagnoses Schizophrenia, chronic condition F20.9 Methamphetamine use disorder, severe F15.20 Psychotic disorder due to psychoactive substance F19.959 Methamphetamine abuse F15.10 Suicidal ideation R45.851 On combination antipsychotic drug therapy Z79.899
[2022-09-01 21:09] VITALS: BP 137/89; PULSE 83; RESP 18; TEMP 36.6; O2SAT 94
[2022-09-01] MEDS: quetiapine 300 mg Tablet 600 MG PO (21:34)
[2022-09-01] MEDS: quetiapine 100 mg Tablet 200 MG PO (21:34)
[2022-09-02 06:00] VITALS: BP 133/86; PULSE 98; O2SAT 93
[2022-09-02] MEDS: tamsulosin 0.4 mg Capsule PO (09:40)
[2022-09-02] MEDS: ascorbic acid 500 mg Tablet PO (09:40)
[2022-09-02] MEDS: aspirin 81 mg EC Tablet PO (09:40)
[2022-09-02] MEDS: buPROPion XL (24 HR) 150 mg Tablet 300 MG PO (09:40)
[2022-09-02] MEDS: gabapentin 400 mg Capsule 800 MG PO ×2 (09:40→15:20)
[2022-09-02] MEDS: ALBUTEROL 2 EACH INHALATION (12:29)
[2022-09-02 14:00] VITALS: BP 167/83; PULSE 90; RESP 18; TEMP 36.4; O2SAT 94
[2022-09-02] MEDS: neomycin-poly-bacitracin oint 28 gm 1 APPLIC TOPICAL (17:48)
--- NOTE | 2022-09-02 18:27 | W.PM.NPUPNS ---
Subjective NPU Subjective: 57-year-old white male with schizoaffective disorder admitted with depressed mood and suicidal ideation with the presence of continued psychosis with a history of polysubstance abuse. The patient had reported that he had talked to his mother today and stated that the only medication that had helped him in the past with his hallucinations was an extended release Dexedrine that he had taken when he was 18 years old. The patient had reported that he had felt more irritable and had been sweating profusely with his Wellbutrin and wished to have it discontinued. He had reported improved sleep on Seroquel. He had also reported a decrease in the intensity of his hallucinations. He had reported interest in inpatient treatment and stated that a bed was awaiting him at [facility] 2 weeks. Mental Status Exam MSE Comments: He had a disheveled appearance he appeared older than his stated age with intermittent eye contact as he was seen on the milieu in no acute distress today. There is no evidence of any abnormal involuntary motor movements tics or tremors appreciated. His mood was described as a okay. His affect remained somewhat subdued. There was no evidence of thought blocking or thought insertion today. He denied any suicidal or homicidal ideation. He appeared less paranoid and had less grandiosity noted as well. He denied auditory hallucinations and did not appear to be responding to internal stimuli. He was alert and oriented to person place and situation. His insight is poor. His impulse control is impaired. His judgment at this time is impaired as well. Vitals/I&O/Wt Last Vital Signs Temp 97.5 F L 09/02/22 14:00 Pulse 90 09/02/22 14:00 Resp 18 09/02/22 14:00 BP 167/83 09/02/22 14:00 Pulse Ox 94 09/02/22 14:00 O2 Del Method 09/02/22 14:00 Weight last 48 hrs Weight 111.244 kg Data NPU 08/29/22 14:14 08/24/22 19:40 A&P Assessment and plan (1) Schizophrenia, chronic condition: (2) Methamphetamine use disorder, severe: (3) Psychotic disorder due to psychoactive substance: (4) Methamphetamine abuse: (5) Suicidal ideation: (6) On combination antipsychotic drug therapy: Plan This is a 57-year-old possibly male with long history of mental health and addiction issues who presents desiring to be tapered and discontinued off Seroquel in efforts of entering in [place] based program despite the necessity for the use of psychotropic medications. ?1.? Continue Seroquel at 800 mg at night. Continue Gabapentin as prescribed. D/C Wellbutrin at request of patient secondary to profuse sweating. ?2.? Continue every 15 minute checks for safety. ?3.? Encourage individual, group and milieu therapies. ?4.? Encourage sober living treatment after discharge at the highest level of care to which he is willing to commit. 5. INpatient substance abuse referral made. Involuntary Hold Information 96 Hour Hold: 96 Hour Involuntary Admission: No Attestations NPU Medical Necessity Statement*: Inpatient hospitalization is medically necessary and the clinically appropriate intervention at this time.? We will initiate medications and make changes as indicated. The patient length of stay is 3-5 days. Coding Level of Care Code Acute Code for [facility] Fwd Diagnoses Schizophrenia, chronic condition F20.9 Methamphetamine use disorder, severe F15.20 Psychotic disorder due to psychoactive substance F19.959 Methamphetamine abuse F15.10 Suicidal ideation R45.851 On combination antipsychotic drug therapy Z79.899
[2022-09-02 20:11] VITALS: BP 159/85; PULSE 96; RESP 18; TEMP 36.5; O2SAT 94
--- NOTE | 2022-09-02 21:05 | PC.NURSE ---
PT REFUSED SCHEDULED GABAPENTIN. PT WAS EDUCATED ON IMPORTANCE OF MEDICATION COMPLIANCE. PT STILL CONTINUED TO REFUSE MEDICATION. MD NOTIFIED.
[2022-09-02] MEDS: quetiapine 300 mg Tablet 600 MG PO (21:20)
[2022-09-02] MEDS: quetiapine 100 mg Tablet 200 MG PO (21:20)
[2022-09-02] MEDS: trazodone 50 mg Tablet PO (23:23)
--- NOTE | 2022-09-02 23:24 | PC.NURSE ---
PT STATED I NEED SOMETHING FOR SLEEP TRAZODONE WAS GIVEN ORDERED.
[2022-09-03 06:00] VITALS: BP 126/76; PULSE 93; RESP 20; TEMP 36.3; O2SAT 97
[2022-09-03] MEDS: tamsulosin 0.4 mg Capsule PO (08:41)
[2022-09-03] MEDS: gabapentin 400 mg Capsule 800 MG PO ×3 (08:41→20:05)
[2022-09-03] MEDS: aspirin 81 mg EC Tablet PO (08:41)
[2022-09-03] MEDS: ascorbic acid 500 mg Tablet PO (08:41)
--- NOTE | 2022-09-03 08:43 | PC.NURSE ---
pt refusing to take wellbutrin xl, states he did not like how it made him feel. attempts to inform patient of the importance of taking his medication an that it takes a couple of weeks for medication to be at a theraputic level. pt still refused. informed doctor aquilino
[2022-09-03] MEDS: ALBUTEROL 2 EACH INHALATION ×2 (09:00→20:07)
[2022-09-03] MEDS: nicotine 21 mg Patch 1 PATCH TRANSDERMA (12:19)
[2022-09-03] MEDS: neomycin-poly-bacitracin oint 28 gm 1 APPLIC TOPICAL (12:25)
[2022-09-03] MEDS: albuterol 2.5 mg/3 mL Neb INHALATION (12:46)
[2022-09-03 14:00] VITALS: BP 147/92; PULSE 86; RESP 18; TEMP 36.6; O2SAT 95
--- NOTE | 2022-09-03 16:46 | P.NPUPN_ITS ---
Subjective NPU Subjective: 57-year-old white male with schizoaffective disorder admitted with depressed mood and suicidal ideation with the presence of continued psychosis with a history of polysubstance abuse. He reported that he suffered from sleep apnea and has an extended history of excessive daytime sleepiness. He had reported that he had never received treatment for his sleep apnea in the past despite having been diagnosed with it for the past 5 years. He had reported up chronically feeling tired. He had reported that he did not like the way the Wellbutrin had made him feel as it had made him sweat excessively and this was discontinued. The patient had reported some improved sleep with Seroquel altho ugh he did report not feeling rested in the morning. He had expressed desire to stop the use of methamphetamine and was interested in inpatient psychiatric treatment focusing on substance abuse. He had reported an extended history of distractibility and frequent boredom and reports having been treated with ADHD medications as a child. The patient had been compliant and redirectable on the [facility]. Patient does appear to have a inpatient bed awaiting him on September 10 at the [facility]. Mental Status Exam MSE Comments: He had a disheveled appearance he appeared older than his stated age with intermittent eye contact as he was seen on the [facility] in no acute distress today. There is no evidence of any abnormal involuntary motor movements tics or tremors appreciated. His mood was described as a okay. His affect was brighter today. There was no evidence of thought blocking or thought insertion today. He denied any suicidal or homicidal ideation. There is no clear evidence of delusional thinking at this time. He denied auditory hallucinations and did not appear to be responding to internal stimuli. He was alert and oriented to person place and situation. His insight is poor. His impulse control is impaired. His judgment at this time is impaired as well. Vitals/I&O/Wt Last Vital Signs Temp 98 F 09/03/22 14:00 Pulse 86 09/03/22 14:00 Resp 18 09/03/22 14:00 BP 147/92 09/03/22 14:00 Pulse Ox 95 09/03/22 14:00 O2 Del Method 09/03/22 14:00 09/03/22 09/03/22 09/03/22 06:59 14:59 22:59 Intake Total 900 / 900 Balance 900 / 900 Data NPU 08/29/22 14:14 08/24/22 19:40 A&P Assessment and plan (1) Schizophrenia, chronic condition: (2) Methamphetamine use disorder, severe: (3) Psychotic disorder due to psychoactive substance: (4) Methamphetamine abuse: (5) Suicidal ideation: (6) On combination antipsychotic drug therapy: Plan This is a 57-year-old possibly male with long history of mental health and addiction issues who presents desiring to be tapered and discontinued off Seroquel in efforts of entering in [place] based program despite the necessity for the use of psychotropic medications. ?1.? Continue Seroquel at 800 mg at night. Continue Gabapentin as prescribed. ?2.? Continue every 15 minute checks for safety. ?3.? Encourage individual, group and milieu therapies. ?4.? Encourage sober living treatment after discharge at the highest level of care to which he is willing to commit. 5. Inpatient substance abuse treatment available at [facility] on 09/10/22. Involuntary Hold Information 96 Hour Hold: 96 Hour Involuntary Admission: No Attestations NPU Medical Necessity Statement*: Inpatient hospitalization is medically necessary and the clinically appropriate intervention at this time.? We will initiate medications and make changes as indicated. The patient length of stay is 3-5 days. Coding Level of Care Code Acute Code for [facility] Diagnoses Schizophrenia, chronic condition F20.9 Methamphetamine use disorder, severe F15.20 Psychotic disorder due to psychoactive substance F19.959 Methamphetamine abuse F15.10 Suicidal ideation R45.851 On combination antipsychotic drug therapy Z79.899
[2022-09-03] MEDS: quetiapine 300 mg Tablet 600 MG PO (20:05)
[2022-09-03] MEDS: quetiapine 100 mg Tablet 200 MG PO (20:05)
[2022-09-03] MEDS: trazodone 50 mg Tablet PO (20:45)
[2022-09-03 21:09] VITALS: BP 146/85; PULSE 102; RESP 20; TEMP 36.7; O2SAT 93
[2022-09-04 06:00] VITALS: BP 111/73; PULSE 87; RESP 18; TEMP 36.3; O2SAT 92
[2022-09-04] MEDS: aspirin 81 mg EC Tablet PO (08:52)
[2022-09-04] MEDS: ascorbic acid 500 mg Tablet PO (08:52)
[2022-09-04] MEDS: gabapentin 400 mg Capsule 800 MG PO ×2 (08:52→15:55)
[2022-09-04] MEDS: tamsulosin 0.4 mg Capsule PO (08:52)
[2022-09-04 15:23] VITALS: BP 111/73; PULSE 87; RESP 18; TEMP 36.3; O2SAT 92
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
== END 2022-09-04 16:49 | disposition home or self-care (01) | DRG 885 ==
LOC: ER 22:23 → NP 22:36
PROVIDERS: Admitting Provider Psychiatry & Neurology Psychiatry; Emergency Provider Emergency Medicine; Visit Provider Psychiatry & Neurology Psychiatry
DX: F20.9 Schizophrenia, unspecified (principal); F15.251 Other stimulant dependence with stimulant-induced psychotic disorder with hallucinations; R45.851 Suicidal ideations; J44.9 Chronic obstructive pulmonary disease, unspecified; G47.30 Sleep apnea, unspecified; Z59.02 Unsheltered homelessness; Z81.8 Family history of other mental and behavioral disorders; Z87.891 Personal history of nicotine dependence; Z79.899 Other long term (current) drug therapy
CPT/HCPCS: 36415; 80053; 80076; 80306; 80307; 82274; 85025; 90471; 90686; 94640; 96372; 97150; 97165; 99238; 99285; J2550; J7613; Q0162

== ENCOUNTER 2022-09-13 20:12 | Emergency (ER) | payer MEDICAID, SELFPAY ==
[2022-09-13 20:20] VITALS: BP 120/84; PULSE 74; RESP 18; TEMP 36.6; O2SAT 97
--- NOTE | 2022-09-13 20:47 | XRR_ITS ---
PROCEDURE INFORMATION: Exam: XR Chest Exam date and time: 09/13/2022 8:50 PM Age: 57 years old Clinical indication: Shortness of breath; Additional info: Short of breath, n/v, cp TECHNIQUE: Imaging protocol: Radiologic exam of the chest. Views: 1 view. COMPARISON: CR (CHEST, ) 08/20/2022 4:18 AM FINDINGS: Lungs: See Heart/Mediastinum finding. Pleural spaces: Unremarkable. No pleural effusion. No pneumothorax. Heart/Mediastinum: Cardiomegaly and mild pulmonary vascular congestion. Bones/joints: Unremarkable. XR/XR chest 1V portable [id number] IMPRESSION: Cardiomegaly and mild pulmonary vascular congestion.
[2022-09-13 20:55] VITALS: BP 158/93; PULSE 69; RESP 20; O2SAT 97
[2022-09-13 21:00] LABS: Basophils # 0.1 10^3/uL (0.0-0.1); Eosinophils # 0.1 10^3/uL (0.0-0.8); Eosinophils % 1.5 %; Hematocrit 42.9 % (42.0-52.0); Hemoglobin 13.4 g/dL (11.7-16.6); Lymphocytes # 1.3 10^3/uL (0.8-4.8); Mean Corpuscular HGB Conc 31.2 g/dL (30.0-36.0); Mean Corpuscular Hemoglobin 28.7 pg (28.0-34.0); Mean Corpuscular Volume 91.9 fl (80-94); Mean Platelet Volume 9.2 fL (7.4-10.4); Monocytes # 0.6 10^3/uL (0.2-0.9); Monocytes % 7.3 %; Neutrophils # 6.06 10^3/uL (1.8-7.7); Neutrophils % 73.8 %; Nucleated Red Blood Cells % 0 %; Platelet Count 329 10^3/cmm (130-400); Red Blood Count 4.67 10^6/uL (4.1-5.3); Red Cell Distribution Width 14.6 % (12.1-15.1); White Blood Count 8.2 10^3/uL (4.0-10.0)
--- NOTE | 2022-09-13 21:14 | W.ED.SOB ---
HPI - SOB/Dyspnea General: Chief Complaint: Shortness of Breath/Dyspnea Stated Complaint: CP/SOB Time Seen by Provider: 09/13/22 20:45 Source: patient History of Present Illness: HPI Narrative: 57-year-old male who comes in with a 1 week history of cough and congestion. He states he is having increased shortness of breath and feels like his abdomen is more distended than usual. He is short of breath with activity. Patient was seen by his primary care doctor, started on prednisone as well as azithromycin. He has been using his albuterol inhaler without improvement. He is feeling very anxious and states he needs the Seroquel so he can sleep. He feels like his abdomen is becoming more distended. He does have a history of methamphetamine abuse, last use was yesterday. He denies chest pain. He does have a sore on the side of his tongue as well. Review of Systems Narrative: See [facility] ED PFSH: Medical History Asthma Cannabis dependence, uncomplicated CHF (congestive heart failure) COPD (chronic obstructive pulmonary disease) Homeless single person On combination antipsychotic drug therapy Psychiatric care Suicidal ideation Surgical History Status post club foot correction at Family History Mother Psychiatric illness Schizophrenia Social History Smoking and tobacco status: former smoker Smoking risk assessment/counseling performed?: Yes Tobacco counseling given: counseling >3 minutes Alcohol intake: never Household members: other Details: roommate x 1 Physical Exam Const: OTHER: Anxious appearing white male, no acute respiratory distress. HENMT: OTHER: Aphthous ulcer noted on the left lateral posterior tongue abutting against a jagged decayed left lower tooth Neck/C-Spine: OTHER: Trachea midline, neck is supple, no JVD Resp: OTHER: Bilateral expiratory wheezes with decreased breath sounds bilaterally Cardio: OTHER: Heart is regular rate and rhythm GI: OTHER: Abdomen is soft, distended, nontender Extremity: OTHER: No swelling or edema, negative Homans Neuro: OTHER: Cranial nerves are intact, moves all extremities Course ED course: Patient is had a chest x-ray performed which shows vascular congestion. EKG shows no acute ischemic changes. He has been given 2 DuoNeb nebulizer treatments. He was given 400 mg of Seroquel orally and 2 mg of Ativan IV. He is resting quietly. Vital Signs: Vital signs: Vital Signs Temperature 97.8 F 09/13/22 20:20 Pulse Rate 87 09/13/22 22:28 Respiratory Rate 20 H 09/13/22 22:28 Blood Pressure 150/104 09/13/22 22:28 Pulse Oximetry 97 09/13/22 22:28 Oxygen Delivery Me thod 09/13/22 21:32 MDM - SOB/Dyspnea Medical Decision Making 57-year-old male who presents with a 5-day history of fevers, body aches, cough productive of yellow sputum, increased work of breathing with abdominal distention. Differential includes COVID, pneumonia, COPD exacerbation, congestive heart failure, pneumonia Medical Records I reviewed the patient's medical records. Lab Data I reviewed the patient's lab results. Patient's white blood cell count is normal at 8.2. Hemoglobin is 13.4, hematocrit 42.9. Sodium slightly low at 133. Potassium is 4.8, chloride 98 CO2 is 24. his AST is elevated at 103 and his ALT is elevated at 164. BNP is 1600. He has been given Lasix 40 mg IV. 09/13/22 20:52 09/13/22 20:52 Labs/Radiology: Radiology Impressions Chest X-Ray 09/13/22 20:47 IMPRESSION: Cardiomegaly and mild pulmonary vascular congestion. Laboratory Results WBC 8.2 10^3/uL (4.0-10.0) 09/13/22 20:52 RBC 4.67 10^6/uL (4.1-5.3) 09/13/22 20:52 Hgb 13.4 g/dL (11.7-16.6) 09/13/22 20:52 Hct 42.9 % (42.0-52.0) 09/13/22 20:52 MCV 91.9 fl (80-94) 09/13/22 20:52 MCH 28.7 pg (28.0-34.0) 09/13/22 20:52 MCHC 31.2 g/dL (30.0-36.0) 09/13/22 20:52 RDW 14.6 % (12.1-15.1) 09/13/22 20:52 Plt Count 329 10^3/cmm (130-400) 09/13/22 20:52 MPV 9.2 fL (7.4-10.4) 09/13/22 20:52 Neut % (Auto) 73.8 % 09/13/22 20:52 Lymph % (Auto) 16.0 % 09/13/22 20:52 [place] % (Auto) 7.3 % 09/13/22 20:52 Eos % (Auto) 1.5 % 09/13/22 20:52 Baso % (Auto) 1.0 % 09/13/22 20:52 Neut # (Auto) 6.06 10^3/uL (1.8-7.7) 09/13/22 20:52 Lymph # (Auto) 1.3 10^3/uL (0.8-4.8) 09/13/22 20:52 [place] # (Auto) 0.6 10^3/uL (0.2-0.9) 09/13/22 20:52 Eos # (Auto) 0.1 10^3/uL (0.0-0.8) 09/13/22 20:52 Baso # (Auto) 0.1 10^3/uL (0.0-0.1) 09/13/22 20:52 Nucleated RBC % (auto) 0 % 09/13/22 20:52 Nucleated RBCs # 0.0 /100WBC 09/13/22 20:52 Sodium 133 mmol/L (136-145) L 09/13/22 20:52 Potassium 4.8 mmol/L (3.5-5.1) 09/13/22 20:52 Chloride 98 mmol/L (98-107) 09/13/22 20:52 Carbon Dioxide 24 mmol/L (22-29) 09/13/22 20:52 Anion Gap 15.8 (5-19) 09/13/22 20:52 BUN 20 mg/dL (6-20) 09/13/22 20:52 Creatinine 0.9 mg/dL (0.7-1.2) 09/13/22 20:52 GFR Calculation 87.0 mL/min (90-130) L 09/13/22 20:52 Glucose 150 mg/dL (65-115) H 09/13/22 20:52 Calculated Osmolality 281 mOsm/kg (285-295) L 09/13/22 20:52 Calcium 8.9 mg/dL (8.5-10.5) 09/13/22 20:52 Total Bilirubin 0.2 mg/dL (0.15-1.2) 09/13/22 20:52 AST 103 U/L (0-40) H 09/13/22 20:52 ALT 164 U/L (0-41) H 09/13/22 20:52 Alkaline Phosphatase 128 U/L (40-130) 09/13/22 20:52 NT-Pro-B Natriuret Pep 1600 pg/mL (0-125) H 09/13/22 20:52 Total Protein 6.9 g/dL (6.6-8.7) 09/13/22 20:52 Albumin 4.0 g/dL (3.5-5.2) 09/13/22 20:52 Globulin 2.9 g/dL (1.3-4.6) 09/13/22 20:52 EKG Data EKG 1: I personally reviewed and interpreted this EKG as follows: EKG Interpretation Date: 09/13/22 EKG interpretation time: 20:45 Interpretation: Normal sinus rhythm, no ST segment elevation or depression, no acute ischemic changes, normal intervals Discharge Plan Discharge Patient Disposition: Home Clinical Impression: CHF (congestive heart failure), COPD (chronic obstructive pulmonary disease), Aphthous ulcer of tongue Condition: Stable Prescriptions: New Lasix 40 mg tablet 40 mg PO DAILY Qty: 7 0RF Valtrex 500 mg tablet 500 mg PO BID Qty: 10 0RF potassium chloride 10 mEq capsule, extended release 10 meq PO DAILY Qty: 7 0RF No Action propranolol 10 mg tablet 10 mg PO TID albuterol 90 mcg/actuation aerosol inhalation hydroxyzine HCl 25 mg tablet 25 mg PO TID PRN prednisone 20 mg tablet 60 mg PO DAILY 6 Days Qty: 18 0RF azithromycin 250 mg tablet See Rx Instructions PO .COMPLEX Qty: 6 0RF Rx Instructions: For 250 mg dose pack: take 500 mg today (day 1), then 250 mg for 4 days (days 2-5) PO tamsulosin 0.4 mg Capsule 0.4 mg PO DAILY 30 Days Qty: 30 0RF Triple Antibiotic 3.5mg-400 unit- 5,000 unit/gram Ointment 1 applic topical BID Qty: 14 0RF [place] Low Dose Aspirin 81 mg tablet,delayed release (DR/EC) 81 mg PO DAILY 30 Days Qty: 30 1RF Vitamin C 500 mg tablet 500 mg PO DAILY 30 Days Qty: 30 1RF gabapentin 800 mg tablet 800 mg PO TID 30 Days Qty: 90 1RF albuterol sulfate 90 mcg/actuation HFA aerosol inhaler 2 puff inhalation Q6H PRN (Reason: shortness of breath or wheezing) 30 Days Qty: 6.7 1RF Seroquel 400 mg tablet 800 mg PO BEDTIME 30 Days Qty: 60 1RF Discharge Orders: Discharge ED (Routine); Ordered 09/13/22 Ordered By: Kia Aden Discharge Diet: Advance as tolerated Discharge Activity: Resume usual activity Patient Instructions: Canker Sores, COPD, Congestive Heart Failure, Opioid Safety, Pain Management Activity Restrictions/Additional Instructions: Take the medications as prescribed. Continue your inhaler 2 puffs every 4 hours and as needed. Stop smoking. Avoid drug use. Return if your symptoms are worsening. Coding Level of Care Code ED Education Administrative Assistant for Panchito Cooper
[2022-09-13] MEDS: FUROsemide 10 mg/mL SDV 4mL 40 MG IVP (21:26)
[2022-09-13] MEDS: LORazepam 2 mg/mL INJ 1 mL IVP (21:27)
[2022-09-13 21:32] VITALS: PULSE 78; RESP 22; O2SAT 93
[2022-09-13 21:32] LABS: Alanine Aminotransferase 164 U/L (0-41); Alkaline Phosphatase 128 U/L (40-130); Aspartate Amino Transferase 103 U/L (0-40); Blood Urea Nitrogen 20 mg/dL (6-20); Calcium 8.9 mg/dL (8.5-10.5); Carbon Dioxide 24 mmol/L (22-29); Chloride 98 mmol/L (98-107); Globulin 2.9 g/dL (1.3-4.6); Glucose 150 mg/dL (65-115); NT Pro B Type Natriuretic Pept 1600 pg/mL (0-125); Osmolality Calculated 281 mOsm/kg (285-295); Sodium 133 mmol/L (136-145); Total Bilirubin 0.2 mg/dL (0.15-1.2); Total Protein 6.9 g/dL (6.6-8.7)
[2022-09-13] MEDS: ipratropium-albuterol 3 mL Neb 6 ML INHALATION (21:32)
[2022-09-13 21:48] LABS: Anion Gap 15.8 (5-19); Potassium 4.8 mmol/L (3.5-5.1)
[2022-09-13 22:28] VITALS: BP 150/104; PULSE 87; RESP 20; O2SAT 97
[2022-09-13 22:46] LABS: Adenovirus Not Detected (NOT DETECT); Chlamydia Pneumoniae Not Detected (NOT DETECT); Coronavirus 229E,HKU1,NL63,OC4 Not Detected (NOT DETECT); Human Metapneumovirus Not Detected (NOT DETECT); Human Rhinovirus/Enterovirus Not Detected (NOT DETECT); Influenza A Not Detected (NOT DETECT); Influenza A H1 Not Detected (NOT DETECT); Influenza A H1-2009 Not Detected (NOT DETECT); Influenza A H3 Not Detected (NOT DETECT); Influenza B Not Detected (NOT DETECT); Mycoplasma Pneumoniae Not Detected (NOT DETECT); Parainfluenza Virus Type 1 Not Detected (NOT DETECT); Parainfluenza Virus Type 2 Not Detected (NOT DETECT); Parainfluenza Virus Type 3 Not Detected (NOT DETECT); Parainfluenza Virus Type 4 Not Detected (NOT DETECT); Respiratory Syncytial Virus A Not Detected (NOT DETECT); Respiratory Syncytial Virus B Not Detected (NOT DETECT); SARS-COV-2 Not Detected (NOT DETECT)
--- NOTE | 2022-09-19 14:29 | DCPLANNER ---
Addendum entered by Amy Jacome 09/19/22 14:30: procurement services manager called patient due to no primary care physician - no answer at this time. Original Note: 09.18.22 - TCM called patient due to no primary care physician - no answer at this time
== END 2022-09-13 22:39 | disposition home or self-care (01) ==
PROVIDERS: Emergency Provider Emergency Medicine
DX: J44.9 Chronic obstructive pulmonary disease, unspecified (principal); I50.9 Heart failure, unspecified; K12.0 Recurrent oral aphthae; Z79.82 Long term (current) use of aspirin; Z87.891 Personal history of nicotine dependence; Z20.822 Contact with and (suspected) exposure to COVID-19
CPT/HCPCS: 71045; 80053; 83880; 85025; 87071; 87635; 87880; 94640; 96374; 96375; 99284; J1940; J2060

== ENCOUNTER 2022-10-05 06:14 | Emergency (ER) | payer MEDICAID, SELFPAY ==
[2022-10-05 06:20] VITALS: BP 147/91; PULSE 83; RESP 18; TEMP 36.4; O2SAT 97
--- NOTE | 2022-10-05 06:20 | ECG_ITS ---
[facility] Test Date: 2022-10-05 Pat Name: David Cortes Department: Room: Gender: Male Rn Case Management: : 1965 Requested By: Yonny Howe Order Number: [id number] Mahesh MD: Alexis Adan M.D. Measurements Intervals [place] Rate: 81 P: 65 IA: 185 QRS: 44 QRSD: 95 T: 70 QT: 376 QTc: 437 Interpretive Statements SINUS RHYTHM POSSIBLE LEFT ATRIAL ENLARGEMENT [-0.1mV P-WAVE IN V1/V2] Compared to ECG 08/20/2022 06:29:20 No significant changes Electronically Signed On 10-05-2022 15:24:18 CDT by Alexis Adan M.D. [id number]
--- NOTE | 2022-10-05 06:26 | XRR_ITS ---
PROCEDURE INFORMATION: Exam: XR Chest Exam date and time: 10/05/2022 6:58 AM Age: 57 years old Clinical indication: Pain; Chest pressure; Additional info: Chest pain TECHNIQUE: Imaging protocol: Radiologic exam of the chest. Views: 1 view. COMPARISON: CR (CHEST, ) 09/13/2022 8:50 PM FINDINGS: Lungs: Unremarkable. No consolidation. Pleural spaces: Unremarkable. No pleural effusion. No pneumothorax. Heart/Mediastinum: Cardiac silhouette is enlarged but unchanged. Bones/joints: Unremarkable. XR/XR chest 1V portable [id number] IMPRESSION: Stable enlargement of the cardiac silhouette. No acute chest abnormality.
[2022-10-05 06:49] VITALS: BP 139/83; PULSE 79; RESP 19; O2SAT 94
[2022-10-05 06:51] LABS: Basophils % 0.7 %; Eosinophils # 0.2 10^3/uL (0.0-0.8); Eosinophils % 3.8 %; Hemoglobin 12.3 g/dL (11.7-16.6); Lymphocytes # 1.7 10^3/uL (0.8-4.8); Lymphocytes % 29.8 %; Mean Corpuscular HGB Conc 30.8 g/dL (30.0-36.0); Mean Corpuscular Hemoglobin 28.4 pg (28.0-34.0); Mean Corpuscular Volume 92.4 fl (80-94); Mean Platelet Volume 8.8 fL (7.4-10.4); Monocytes # 0.6 10^3/uL (0.2-0.9); Monocytes % 10.2 %; Neutrophils # 3.07 10^3/uL (1.8-7.7); Neutrophils % 55.1 %; Nucleated Red Blood Cells % 0 %; Platelet Count 253 10^3/cmm (130-400); Red Blood Count 4.33 10^6/uL (4.1-5.3); Red Cell Distribution Width 14.5 % (12.1-15.1); White Blood Count 5.6 10^3/uL (4.0-10.0)
[2022-10-05 06:55] LABS: Troponin(5th) Baseline 22 ng/L (0-15)
[2022-10-05 07:03] LABS: Alanine Aminotransferase 50 U/L (0-41); Albumin Level 3.6 g/dL (3.5-5.2); Alkaline Phosphatase 88 U/L (40-130); Aspartate Amino Transferase 18 U/L (0-40); Blood Urea Nitrogen 15 mg/dL (6-20); Calcium 8.5 mg/dL (8.5-10.5); Carbon Dioxide 24 mmol/L (22-29); Chloride 104 mmol/L (98-107); Globulin 2.5 g/dL (1.3-4.6); Glomerular Filtration Rate 99.6 mL/min (90-130); Glucose 107 mg/dL (65-115); NT Pro B Type Natriuretic Pept 828 pg/mL (0-125); Osmolality Calculated 285 mOsm/kg (285-295); Sodium 137 mmol/L (136-145); Total Bilirubin 0.2 mg/dL (0.15-1.2); Total Protein 6.1 g/dL (6.6-8.7)
[2022-10-05 07:16] LABS: Anion Gap 13.5 (5-19)
[2022-10-05 07:17] LABS: Potassium 4.5 mmol/L (3.5-5.1)
--- NOTE | 2022-10-05 07:19 | ED_ITS ---
HPI - Chest Pain General: Chief Complaint: Chest Pain Stated Complaint: chest pain Time Seen by Provider: 10/05/22 06:23 Source: patient Mode of arrival: ambulatory History of Present Illness: 57-year-old male presents emergency complaining of chest pain and abdominal pain with nausea and vomiting started yesterday. No hematochezia melena hematemesis or coffee-ground emesis. No dysuria urgency or frequency no hematuria. Patient has had coronary disease in the past. He has not had any orthopnea. He has not noticed anything that makes it better or worse. MD complaint: chest pain Onset (ago): hour(s) Timing of current episode: episodic Onset: during rest Pain location: left chest Pain radiation: none Severity: mild Quality: tightness, aching and heaviness Relieving factors: nothing Exacerbating factors: nothing Associated symptoms: Reports dyspnea; Deny abdominal pain, diaphoresis, fever(s), leg edema, nausea, palpitations, sense of impending doom, syncope or vomiting Treatment prior to arrival: none Review of Systems Const: Denies: fever(s), chills or diaphoresis ENMT: Denies: throat pain, ear or mastoid pain, nasal discharge or nasal congestion Card: Reports: chest pain; Denies: palpitations or syncope Resp: Reports: dyspnea, non-productive cough and wheezing GI: Denies: abdominal pain, nausea or vomiting : Denies: flank pain, dysuria, urinary frequency or urinary urgency Skin/Breast: Denies: rash or pruritus PFSH ED PFSH: Medical History Asthma Cannabis dependence, uncomplicated CHF (congestive heart failure) COPD (chronic obstructive pulmonary disease) Homeless single person On combination antipsychotic drug therapy Psychiatric care Suicidal ideation Surgical History Status post club foot correction at Family History Mother Psychiatric illness Schizophrenia Social History Smoking and tobacco status: former smoker Smoking risk assessment/counseling performed?: Yes Tobacco counseling given: counseling >3 minutes Alcohol intake: never Household members: other Details: roommate x 1 Physical Exam Const: COMMON NORMALS: no acute distress GENERAL APPEARANCE: cooperative and comfortable ORIENTATION/CONSCIOUSNESS: Yes awake, Yes oriented to person, Yes oriented to place and Yes oriented to time HENMT: COMMON NORMALS: normocephalic, atraumatic and hearing grossly normal bilaterally HEAD & SCALP: normocephalic and atraumatic Resp: COMMON NORMALS: normal respiratory effort, No retractions and No use of accessory muscles AUSCULTATION: wheezes Cardio: COMMON NORMALS: regular rate, regular rhythm and No murmurs present (Cardio) RATE: regular rate RHYTHM: regular rhythm GI: COMMON NORMALS: Soft to palpation and No hepatosplenomegaly present AUSCULTATION: Yes normoactive bowel sounds PALPATION: Yes Soft to palpation, No Tenderness to palpation present (GI), No Guarding due to palpation present (GI) and Yes No hepatosplenomegaly present Extremity: COMMON NORMALS: normal to inspection, capillary refill normal, no clubbing, cyanosis or edema, no calf tenderness and no pedal edema Neuro: SENSORIUM/ORIENTATION: Yes oriented to person, Yes oriented to place and Yes oriented to time Skin: COMMON NORMALS: no rashes or lesions noted GENERAL SKIN EXAM: no rashes or lesions noted Course Vital Signs: Vital signs: Vital Signs Temperature 97.6 F 10/05/22 06:20 Pulse Rate 80 10/05/22 08:03 Respiratory Rate 16 10/05/22 07:59 Blood Pressure 139/83 10/05/22 06:49 Pulse Oximetry 99 10/05/22 07:59 Oxygen Delivery Me thod 10/05/22 07:59 MDM - Chest Pain Medical Decision Making Labs imaging and EKG reviewed no acute changes. Patient vitals have been stable. Treated for mild exacerbation COPD steroid taper albuterol as needed follow-up as needed. Continue low-dose baby aspirin and we will set him up for an outpatient Lexiscan sestamibi stress test. Patient not be able to do a regular stress test due to the fact that he has COPD Medical Records I reviewed the patient's medical records. Lab Data I reviewed the patient's lab results. 10/05/22 06:46 10/05/22 06:30 Radiology Impressions Chest X-Ray 10/05/22 06:26 IMPRESSION: Stable enlargement of the cardiac silhouette. No acute chest abnormality. Laboratory Results WBC 5.6 10^3/uL (4.0-10.0) 10/05/22 06:46 Corrected WBC Cancelled 10/05/22 06:30 RBC 4.33 10^6/uL (4.1-5.3) 10/05/22 06:46 Hgb 12.3 g/dL (11.7-16.6) 10/05/22 06:46 Hct 40.0 % (42.0-52.0) L 10/05/22 06:46 MCV 92.4 fl (80-94) 10/05/22 06:46 MCH 28.4 pg (28.0-34.0) 10/05/22 06:46 MCHC 30.8 g/dL (30.0-36.0) 10/05/22 06:46 RDW 14.5 % (12.1-15.1) 10/05/22 06:46 Plt Count 253 10^3/cmm (130-400) 10/05/22 06:46 MPV 8.8 fL (7.4-10.4) 10/05/22 06:46 Gran % Cancelled 10/05/22 06:30 Neut % (Auto) 55.1 % 10/05/22 06:46 Lymph % (Auto) 29.8 % 10/05/22 06:46 [place] % (Auto) 10.2 % 10/05/22 06:46 Eos % (Auto) 3.8 % 10/05/22 06:46 Baso % (Auto) 0.7 % 10/05/22 06:46 Neut # (Auto) 3.07 10^3/uL (1.8-7.7) 10/05/22 06:46 Lymph # (Auto) 1.7 10^3/uL (0.8-4.8) 10/05/22 06:46 [place] # (Auto) 0.6 10^3/uL (0.2-0.9) 10/05/22 06:46 Eos # (Auto) 0.2 10^3/uL (0.0-0.8) 10/05/22 06:46 Baso # (Auto) 0.0 10^3/uL (0.0-0.1) 10/05/22 06:46 Absolute Gran (auto) Cancelled 10/05/22 06:30 Nucleated RBC % (auto) 0 % 10/05/22 06:46 Nucleated RBCs # 0.0 /100WBC 10/05/22 06:46 Sodium 137 mmol/L (136-145) 10/05/22 06:30 Potassium 4.5 mmol/L (3.5-5.1) 10/05/22 06:30 Chloride 104 mmol/L (98-107) 10/05/22 06:30 Carbon Dioxide 24 mmol/L (22-29) 10/05/22 06:30 Anion Gap 13.5 (5-19) 10/05/22 06:30 BUN 15 mg/dL (6-20) 10/05/22 06:30 Creatinine 0.8 mg/dL (0.7-1.2) 10/05/22 06:30 GFR Calculation 99.6 mL/min (90-130) 10/05/22 06:30 Glucose 107 mg/dL (65-115) 10/05/22 06:30 Calculated Osmolality 285 mOsm/kg (285-295) 10/05/22 06:30 Calcium 8.5 mg/dL (8.5-10.5) 10/05/22 06:30 Total Bilirubin 0.2 mg/dL (0.15-1.2) 10/05/22 06:30 AST 18 U/L (0-40) 10/05/22 06:30 ALT 50 U/L (0-41) H 10/05/22 06:30 Alkaline Phosphatase 88 U/L (40-130) 10/05/22 06:30 Troponin T Baseline 22 ng/L (0-15) H 10/05/22 06:30 Troponin T 120 Minute 21.80 ng/L (0-15) H 10/05/22 08:54 Delta Troponin T -0.20 ABS# (0-10) L 10/05/22 08:54 NT-Pro-B Natriuret Pep 828 pg/mL (0-125) H 10/05/22 06:30 Total Protein 6.1 g/dL (6.6-8.7) L 10/05/22 06:30 Albumin 3.6 g/dL (3.5-5.2) 10/05/22 06:30 Globulin 2.5 g/dL (1.3-4.6) 10/05/22 06:30 Discharge Plan Discharge Patient Disposition: Home Clinical Impression: COPD exacerbation Condition: Stable Prescriptions: New Medrol ([place]) 4 mg tablets,dose pack See Rx Instructions .ROUTE .COMPLEX Qty: 21 0RF Rx Instructions: orally per package directions albuterol sulfate 90 mcg/actuation HFA aerosol inhaler 2 inh INHALATION Q4H PRN (Reason: shortness of breath or wheezing) Qty: 18 0RF No Action Triple Antibiotic 3.5mg-400 unit- 5,000 unit/gram Ointment 1 applic topical BID Qty: 14 0RF aspirin [[place] Low Dose Aspirin] 81 mg tablet,delayed release (DR/EC) 81 mg PO DAILY 30 Days Qty: 30 1RF ascorbic acid (vitamin C) [Vitamin C] 500 mg tablet 500 mg PO DAILY 30 Days Qty: 30 1RF gabapentin 800 mg tablet 800 mg PO TID 30 Days Qty: 90 1RF albuterol sulfate 90 mcg/actuation HFA aerosol inhaler 2 puff inhalation Q6H PRN (Reason: shortness of breath or wheezing) 30 Days Qty: 6.7 1RF quetiapine [Seroquel] 400 mg tablet 800 mg PO BEDTIME 30 Days Qty: 60 1RF Discharge Orders: Discharge ED (Routine); Ordered 10/05/22 Ordered By: Escobar Carranza Discharge Diet: Usual diet Discharge Activity: Increase activity as tolerated Patient Instructions: Opioid Safety, Pain Management Activity Restrictions/Additional Instructions: You were seen for exacerbation for shortness of breath realted to your COPD. Reccommend you take a course of prednisone and use albuterol as needed for dyspnea. Coding Level of Care Code ED Facilities Painter for Panchito Cooper
[2022-10-05 07:59] VITALS: PULSE 88; RESP 16; O2SAT 99
[2022-10-05] MEDS: ipratropium-albuterol 3 mL Neb INHALATION (08:00)
[2022-10-05 08:03] VITALS: PULSE 80
--- NOTE | 2022-10-05 08:24 | ECG_ITS ---
[facility] Test Date: 2022-10-05 Pat Name: David Cortes Department: Room: Gender: Male Formulation Scientist: : 1965 Requested By: Yonny Howe Order Number: [id number] Mahesh MD: Alexis Adan M.D. Measurements Intervals [place] Rate: 80 P: 60 MT: 190 QRS: 39 QRSD: 105 T: 66 QT: 387 QTc: 446 Interpretive Statements SINUS RHYTHM WITH FREQUENT SUPRAVENTRICULAR PREMATURE COMPLEXES POSSIBLE LEFT ATRIAL ENLARGEMENT [-0.1mV P-WAVE IN V1/V2] Compared to ECG 10/05/2022 06:20:22 No significant changes Electronically Signed On 10-05-2022 15:25:07 CDT by Alexis Adan M.D. [id number]
--- NOTE | 2022-10-15 15:56 | DCPLANNER ---
Addendum entered by Amy Jacome 10/16/22 12:45: corporate quality assurance manager called patient due to no primary care physician - no answer at this time Original Note: corporate quality assurance manager called patient due to no primary care physician - no answer at this time
== END 2022-10-05 12:00 | disposition home or self-care (01) ==
PROVIDERS: Emergency Medicine; Emergency Provider Family Medicine
DX: J44.9 Chronic obstructive pulmonary disease, unspecified (principal); I50.9 Heart failure, unspecified; Z87.891 Personal history of nicotine dependence
CPT/HCPCS: 36415; 71045; 80053; 83880; 84484; 85025; 93005; 94640; 99285

== ENCOUNTER 2022-10-16 11:26 | Emergency (ER) | payer MEDICAID, SELFPAY ==
[2022-10-16 11:28] VITALS: BMI 30.5
[2022-10-16 11:32] VITALS: BP 182/104; PULSE 106; RESP 20; TEMP 36.6; O2SAT 100
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
[2022-10-16 12:30] VITALS: BP 169/102; PULSE 74; RESP 18; O2SAT 98
--- NOTE | 2022-10-23 13:12 | DCPLANNER ---
general merchandise manager called patient due to no primary care physician - no answer at this time
== END 2022-10-16 12:33 | disposition home or self-care (01) ==
PROVIDERS: Emergency Provider Physician Assistant
DX: Z76.0 Encounter for issue of repeat prescription (principal); Z79.82 Long term (current) use of aspirin; I50.9 Heart failure, unspecified; J44.9 Chronic obstructive pulmonary disease, unspecified; Z87.891 Personal history of nicotine dependence
CPT/HCPCS: 99283

== ENCOUNTER 2022-10-27 04:58 | Emergency (ER) | payer MEDICAID, SELFPAY ==
[2022-10-27 05:00] VITALS: BP 118/69; PULSE 65; RESP 18; TEMP 36.6; O2SAT 99; BMI 36.6
[2022-10-27 05:18] VITALS: BP 112/86; PULSE 108; RESP 22; O2SAT 96
--- NOTE | 2022-10-27 05:20 | XRR_ITS ---
PROCEDURE INFORMATION: Exam: XR Chest Exam date and time: 10/27/2022 5:37 AM Age: 57 years old Clinical indication: Shortness of breath; Patient HX: HX chf; Additional info: Chest pain TECHNIQUE: Imaging protocol: Radiologic exam of the chest. Views: 1 view. COMPARISON: CR (CHEST, ) 10/05/2022 6:58 AM FINDINGS: Lungs: No CHF/pulmonary edema. Visible lungs appear essentially clear. Pleural spaces: No visible pneumothorax. No definite pleural fluid. Heart/Mediastinum: Moderate cardiomegaly, similar to the prior exam Bones/joints: No significant acute finding. XR/XR chest 1V portable [id number] IMPRESSION: 1. No definite CHF or pneumonia. 2. Moderate cardiomegaly. 3. Other findings discussed above.
--- NOTE | 2022-10-27 05:20 | ECG_ITS ---
[facility] Test Date: 2022-10-27 Pat Name: David Cortes Department: Room: Gender: Male [employer]er: : 1965 Requested By: Yonny Howe Order Number: [id number] Mahesh MD: Alexis Adan M.D. Measurements Intervals [place] Rate: 78 P: 14 IN: 180 QRS: 27 QRSD: 101 T: 74 QT: 414 QTc: 472 Interpretive Statements SINUS RHYTHM WITH FREQUENT SUPRAVENTRICULAR PREMATURE COMPLEXES NONSPECIFIC ST & T-WAVE ABNORMALITY Compared to ECG 10/05/2022 08:24:40 T-wave abnormality now present Electronically Signed On 10-27-2022 11:49:21 CDT by Alexis Adan M.D. [id number]
[2022-10-27 05:26] LABS: Basophils # 0.1 10^3/uL (0.0-0.1); Basophils % 0.9 %; Eosinophils # 0.2 10^3/uL (0.0-0.8); Eosinophils % 2.2 %; Hemoglobin 13.5 g/dL (11.7-16.6); Lymphocytes % 26.4 %; Mean Corpuscular HGB Conc 31.4 g/dL (30.0-36.0); Mean Corpuscular Hemoglobin 28.1 pg (28.0-34.0); Mean Corpuscular Volume 89.6 fl (80-94); Mean Platelet Volume 8.8 fL (7.4-10.4); Monocytes # 0.6 10^3/uL (0.2-0.9); Monocytes % 7.9 %; Neutrophils # 4.75 10^3/uL (1.8-7.7); Neutrophils % 62.2 %; Nucleated Red Blood Cells % 0 %; Platelet Count 294 10^3/cmm (130-400); Red Cell Distribution Width 14.1 % (12.1-15.1); White Blood Count 7.6 10^3/uL (4.0-10.0)
[2022-10-27] MEDS: quetiapine 100 mg Tablet 800 MG PO (05:39)
[2022-10-27] MEDS: nitroglycerin 1 gm/inch oint Pkt 1 INCH TOPICAL (05:40)
[2022-10-27 05:42] LABS: Alanine Aminotransferase 21 U/L (0-41); Albumin Level 4.1 g/dL (3.5-5.2); Alkaline Phosphatase 97 U/L (40-130); Anion Gap 16.9 (5-19); Aspartate Amino Transferase 13 U/L (0-40); Blood Urea Nitrogen 20 mg/dL (6-20); Calcium 8.6 mg/dL (8.5-10.5); Carbon Dioxide 24 mmol/L (22-29); Chloride 96 mmol/L (98-107); Creatinine Clr Calc Pharmacy 110.1456; Glucose 196 mg/dL (65-115); Osmolality Calculated 284 mOsm/kg (285-295); Potassium 3.9 mmol/L (3.5-5.1); Sodium 133 mmol/L (136-145); Total Bilirubin 0.3 mg/dL (0.15-1.2); Total Protein 7.1 g/dL (6.6-8.7)
--- NOTE | 2022-10-27 05:42 | W.ED.CHESTPA ---
Documented by User: Yonny Stephens DO 10/27/22 23:46 HPI - Chest Pain General: Chief Complaint: Chest Pain Stated Complaint: CP/SOB Time Seen by Provider: 10/27/22 05:07 History of Present Illness: 57-year-old gentleman with a history of psychiatric disease. He has no history of coronary disease. He presents with chest discomfort and shortness of breath that awoke him from sleep this morning. He also notes that he ran out of his Seroquel, and has not had any for 2 days. He complains of a feeling of anxiousness, shortness of breath, chest discomfort, with some nonproductive cough. No fever. He does note chills. MD complaint: chest pain and other Pertinent past history: other Timing of current episode: episodic Prior episodes: Yes Onset: during rest and awoke with symptoms Pain location: substernal Relieving factors: nitroglycerin Associated symptoms: Reports dyspnea; Deny abdominal pain, diaphoresis, fever(s), leg edema or vomiting Treatment prior to arrival: nitroglycerin Review of Systems Const: Denies: fever(s) or diaphoresis ENMT: Denies: throat pain Card: Reports: chest pain Resp: Reports: dyspnea GI: Denies: abdominal pain or vomiting COUNTS INCLUDE 234 BEDS AT THE [facility] ED PFSH: Medical History Asthma Cannabis dependence, uncomplicated CHF (congestive heart failure) COPD (chronic obstructive pulmonary disease) Homeless single person On combination antipsychotic drug therapy Psychiatric care Suicidal ideation Surgical History Status post club foot correction at Family History Mother Psychiatric illness Schizophrenia Social History Smoking and tobacco status: former smoker Smoking risk assessment/counseling performed?: Yes Tobacco counseling given: counseling >3 minutes Alcohol intake: never Household members: other Details: roommate x 1 Physical Exam Const: GENERAL APPEARANCE: cooperative and anxious; not ill appearing NUTRITIONAL APPEARANCE: obese HENMT: COMMON NORMALS: normocephalic, atraumatic and Normal external nose present HEAD & SCALP: normocephalic and atraumatic FACE & SINUS: normal facial exam and face symmetric NOSE: Normal external nose present Eye: COMMON NORMALS: Equal, round and reactive pupils present and EOMs intact bilaterally PUPIL: Yes Equal, round and reactive pupils present Neck/C-Spine: GENERAL: Yes trachea midline Chest: CHEST: Yes Symmetrical chest wall rise Resp: COMMON NORMALS: normal respiratory effort, No retractions, No use of accessory muscles and clear to auscultation bilaterally AUSCULTATION: clear to auscultation bilaterally Cardio: COMMON NORMALS: regular rate and regular rhythm RATE: regular rate RHYTHM: regular rhythm GI: COMMON NORMALS: Normal to inspection, nondistended, normoactive bowel sounds present Extremity: COMMON NORMALS: no pedal edema Neuro: EILEEN COMA SCALE: document GCS findings [place] coma scale eye opening: Spontaneous Eileen coma scale verbal response: Orientated Eileen coma scale motor response: Obey commands [place] coma scale total score: 15 SENSORY EXAM: Yes extremities (intact) Psych: COMMON NORMALS: speech normal SPEECH: Yes normal speech Skin: COMMON NORMALS: no rashes or lesions noted GENERAL SKIN EXAM: no rashes or lesions noted Course Vital Signs: Vital signs: Vital Signs Temperature 97.8 F 10/27/22 05:00 Pulse Rate 92 10/27/22 08:51 Respiratory Rate 14 10/27/22 07:32 Blood Pressure 84/64 10/27/22 08:51 Pulse Oximetry 94 10/27/22 08:51 Oxygen Delivery Me thod Nasal Cannula 10/27/22 08:51 Oxygen Flow Rate 2 10/27/22 08:51 MDM - Chest Pain Medical Decision Making EKG shows a sinus rhythm with no acute ST changes. CBC is normal. BMP is not remarkable. Urinalysis is negative. BNP is mildly elevated. Troponin baseline is 32. Awaiting a second troponin at 2 hours. In the meantime, he has been given his normal dose of Seroquel. He is breathing room air. Chest x-ray shows stable cardiomegaly. He is checked out to the oncoming physician at shift change pending second troponin. Lab Data 10/27/22 05:06 10/27/22 05:06 Radiology Impressions Chest X-Ray 10/27/22 05:20 IMPRESSION: 1. No definite CHF or pneumonia. 2. Moderate cardiomegaly. 3. Other findings discussed above. Chest CTA 10/27/22 07:36 IMPRESSION: 1. No pulmonary artery embolism identified. 2. No thoracic aortic aneurysm or dissection identified. 3. Coronary atherosclerosis. 4. Small anterior inferior pericardial effusion, increased. Laboratory Results WBC 7.6 10^3/uL (4.0-10.0) 10/27/22 05:06 RBC 4.80 10^6/uL (4.1-5.3) 10/27/22 05:06 Hgb 13.5 g/dL (11.7-16.6) 10/27/22 05:06 Hct 43.0 % (42.0-52.0) 10/27/22 05:06 MCV 89.6 fl (80-94) 10/27/22 05:06 MCH 28.1 pg (28.0-34.0) 10/27/22 05:06 MCHC 31.4 g/dL (30.0-36.0) 10/27/22 05:06 RDW 14.1 % (12.1-15.1) 10/27/22 05:06 Plt Count 294 10^3/cmm (130-400) 10/27/22 05:06 MPV 8.8 fL (7.4-10.4) 10/27/22 05:06 Neut % (Auto) 62.2 % 10/27/22 05:06 Lymph % (Auto) 26.4 % 10/27/22 05:06 [place] % (Auto) 7.9 % 10/27/22 05:06 Eos % (Auto) 2.2 % 10/27/22 05:06 Baso % (Auto) 0.9 % 10/27/22 05:06 Neut # (Auto) 4.75 10^3/uL (1.8-7.7) 10/27/22 05:06 Lymph # (Auto) 2.0 10^3/uL (0.8-4.8) 10/27/22 05:06 [place] # (Auto) 0.6 10^3/uL (0.2-0.9) 10/27/22 05:06 Eos # (Auto) 0.2 10^3/uL (0.0-0.8) 10/27/22 05:06 Baso # (Auto) 0.1 10^3/uL (0.0-0.1) 10/27/22 05:06 Nucleated RBC % (auto) 0 % 10/27/22 05:06 Nucleated RBCs # 0.0 /100WBC 10/27/22 05:06 D-Dimer 0.61 ug/mIFEU (0-0.59) H 10/27/22 05:06 Sodium 133 mmol/L (136-145) L 10/27/22 05:06 Potassium 3.9 mmol/L (3.5-5.1) 10/27/22 05:06 Chloride 96 mmol/L (98-107) L 10/27/22 05:06 Carbon Dioxide 24 mmol/L (22-29) 10/27/22 05:06 Anion Gap 16.9 (5-19) 10/27/22 05:06 BUN 20 mg/dL (6-20) 10/27/22 05:06 Creatinine 1.0 mg/dL (0.7-1.2) 10/27/22 05:06 GFR Calculation 77.0 mL/min (90-130) L 10/27/22 05:06 Glucose 196 mg/dL (65-115) H 10/27/22 05:06 Calculated Osmolality 284 mOsm/kg (285-295) L 10/27/22 05:06 Calcium 8.6 mg/dL (8.5-10.5) 10/27/22 05:06 Total Bilirubin 0.3 mg/dL (0.15-1.2) 10/27/22 05:06 AST 13 U/L (0-40) 10/27/22 05:06 ALT 21 U/L (0-41) 10/27/22 05:06 Alkaline Phosphatase 97 U/L (40-130) 10/27/22 05:06 Troponin T Baseline 32 ng/L (0-15) H 10/27/22 05:06 Troponin T 120 Minute 33.20 ng/L (0-15) H 10/27/22 07:09 Delta Troponin T 1.20 ABS# (0-10) 10/27/22 07:09 NT-Pro-B Natriuret Pep 1903 pg/mL (0-125) H 10/27/22 05:06 Total Protein 7.1 g/dL (6.6-8.7) 10/27/22 05:06 Albumin 4.1 g/dL (3.5-5.2) 10/27/22 05:06 Globulin 3.0 g/dL (1.3-4.6) 10/27/22 05:06 Urine Color Yellow (Yellow) 10/27/22 05:51 Urine Appearance Clear (CLEAR) 10/27/22 05:51 Urine pH 5 (5-7) 10/27/22 05:51 Ur Specific [place] 1.025 (1.005-1.030) 10/27/22 05:51 Urine Protein Neg (Negative) 10/27/22 05:51 Urine Glucose (UA) Norm (Normal) 10/27/22 05:51 Urine Ketones Negative (Negative) 10/27/22 05:51 Urine Blood Neg (Negative) 10/27/22 05:51 Urine Nitrate Negative (Negative) 10/27/22 05:51 Urine Bilirubin Neg (Negative) 10/27/22 05:51 Urine Urobilinogen Norm mg/dL (Negative) 10/27/22 05:51 Ur Leukocyte Esterase Negative (Negative) 10/27/22 05:51 Discharge Plan Discharge Patient Disposition: Home Clinical Impression: Schizophrenia, chronic condition, CHF (congestive heart failure), COPD (chronic obstructive pulmonary disease), Chest pain Condition: Stable Prescriptions: New doxycycline hyclate 100 mg capsule 100 mg PO BID 10 Days Qty: 20 0RF prednisone 50 mg tablet 50 mg PO DAILY 5 Days Qty: 5 0RF albuterol sulfate 90 mcg/actuation HFA aerosol inhaler 2 inh inhalation Q4H PRN (Reason: shortness of breath or wheezing) Qty: 8.5 0RF Lasix 20 mg tablet 20 mg PO QAM Qty: 7 0RF potassium chloride 8 mEq capsule, extended release 8 meq PO DAILY Qty: 7 0RF Continued gabapentin 800 mg tablet 800 mg PO TID 30 Days Qty: 90 1RF Seroquel 400 mg tablet 800 mg PO BEDTIME 30 Days Qty: 60 1RF No Action albuterol sulfate 90 mcg/actuation HFA aerosol inhaler 2 inh INHALATION Q4H PRN (Reason: shortness of breath or wheezing) Qty: 18 0RF Triple Antibiotic 3.5mg-400 unit- 5,000 unit/gram Ointment 1 applic topical BID Qty: 14 0RF aspirin [[place] Low Dose Aspirin] 81 mg tablet,delayed release (DR/EC) 81 mg PO DAILY 30 Days Qty: 30 1RF ascorbic acid (vitamin C) [Vitamin C] 500 mg tablet 500 mg PO DAILY 30 Days Qty: 30 1RF albuterol sulfate 90 mcg/actuation HFA aerosol inhaler 2 puff inhalation Q6H PRN (Reason: shortness of breath or wheezing) 30 Days Qty: 6.7 1RF Discharge Orders: Discharge ED (Routine); Ordered 10/27/22 Ordered By: Lino Ling Discharge Diet: Usual diet Discharge Activity: Resume usual activity Patient Instructions: Heart Failure (ED), Schizophrenia (ED), COPD (Chronic Obstructive Pulmonary Disease) (ED) Activity Restrictions/Additional Instructions: Thank you for visiting the emergency department. You were seen and evaluated for multiple concerns including chest pain and shortness of breath. The most likely cause of your symptoms is multifactorial however does not appear to need hospitalization at this time. For your shortness of breath I will prescribe steroids and antibiotics. Please also use your albuterol metered-dose inhaler 2 puffs every 4 hours for 24 hours followed by 2 puffs every 6 hours for 24 hours followed by 2 puffs every 8 hours for 24 hours and then return to the normal schedule. For mild evidence of volume overload I will prescribe a short course of Lasix and potassium supplementation. I will message case management for cardiology follow-up. Please establish and follow-up with a primary care provider. Please follow-up with your psychiatric care provider. [facility] [phone] If you or someone you care for is experiencing a psychiatric emergency, please call the crisis hotline ([employer]) 24-hours a day, 7 days a week at [phone]. The crisis stabilization center is located on the [address] side of the hospital campus and has walk-in hours 11 AM to 9 PM. Return to the emergency department for anything that you are concerned about and feel needs emergency department evaluation. Coding Level of Care Code ED Voice Pathologist for Chg Fwd Documented by User: Lino Ling MD 10/31/22 03:43 HPI - Chest Pain General: Chief Complaint: Chest Pain Stated Complaint: CP/SOB Time Seen by Provider: 10/27/22 05:07 PFSH ED PFSH: Medical History Asthma Cannabis dependence, uncomplicated CHF (congestive heart failure) COPD (chronic obstructive pulmonary disease) Homeless single person On combination antipsychotic drug therapy Psychiatric care Suicidal ideation Surgical History Status post club foot correction at Family History Mother Psychiatric illness Schizophrenia Social History Smoking and tobacco status: former smoker Smoking risk assessment/counseling performed?: Yes Tobacco counseling given: counseling >3 minutes Alcohol intake: never Household members: other Details: roommate x 1 Physical Exam Neuro: EILEEN COMA SCALE: document GCS findings [place] coma scale total score: 15 Course Vital Signs: Vital signs: Vital Signs Temperature 97.8 F 10/27/22 05:00 Pulse Rate 92 10/27/22 08:51 Respiratory Rate 14 10/27/22 07:32 Blood Pressure 84/64 10/27/22 08:51 Pulse Oximetry 94 10/27/22 08:51 Oxygen Delivery Me thod Nasal Cannula 10/27/22 08:51 Oxygen Flow Rate 2 10/27/22 08:51 MDM - Chest Pain Medical Decision Making EKG shows a sinus rhythm with no acute ST changes. CBC is normal. BMP is not remarkable. Urinalysis is negative. BNP is mildly elevated. Troponin baseline is 32. Awaiting a second troponin at 2 hours. In the meantime, he has been given his normal dose of Seroquel. He is breathing room air. Chest x-ray shows stable cardiomegaly. He is checked out to the oncoming physician at shift change pending second troponin. Patient care handoff received from Dr. Stephens pending completion of ED evaluation. Patient did have a episode of increased heart rate and hypoxemia though I am unsure of exact etiology, hypoxemia improved with breathing treatment. I also think he has a strong component of sleep apnea. D-dimer was minimally elevated. Negative range 2-hour delta troponin. BNP is mildly elevated. CTA demonstrates no pulmonary embolism or lobar consolidation, he does have a mild pericardial effusion though I do not believe that this is clinically significant and reassessment including patient provided clinical history supports this. Most likely etiology of patient's symptoms is multifactorial including mild volume overload, likely COPD exacerbation, and need for medication refill with psychiatric symptoms. Subsequent discussion about discharge with the patient he reported suicidal ideation to the nurse though also reported that this was because he is homeless. I discussed the case with psychiatry. I believe risk of lethality is low. I will refer the patient for further evaluation as needed to the crisis stabilization center. Plan to treat with COPD exacerbation, 1 week course of potassium supplementation and 20 mg Lasix, and refill of patient's Seroquel and gabapentin. Lino Ling MD Emergency Medicine Lab Data 10/27/22 05:06 10/27/22 05:06 Radiology Impressions Chest X-Ray 10/27/22 05:20 IMPRESSION: 1. No definite CHF or pneumonia. 2. Moderate cardiomegaly. 3. Other findings discussed above. Chest CTA 10/27/22 07:36 IMPRESSION: 1. No pulmonary artery embolism identified. 2. No thoracic aortic aneurysm or dissection identified. 3. Coronary atherosclerosis. 4. Small anterior inferior pericardial effusion, increased. Laboratory Results WBC 7.6 10^3/uL (4.0-10.0) 10/27/22 05:06 RBC 4.80 10^6/uL (4.1-5.3) 10/27/22 05:06 Hgb 13.5 g/dL (11.7-16.6) 10/27/22 05:06 Hct 43.0 % (42.0-52.0) 10/27/22 05:06 MCV 89.6 fl (80-94) 10/27/22 05:06 MCH 28.1 pg (28.0-34.0) 10/27/22 05:06 MCHC 31.4 g/dL (30.0-36.0) 10/27/22 05:06 RDW 14.1 % (12.1-15.1) 10/27/22 05:06 Plt Count 294 10^3/cmm (130-400) 10/27/22 05:06 MPV 8.8 fL (7.4-10.4) 10/27/22 05:06 Neut % (Auto) 62.2 % 10/27/22 05:06 Lymph % (Auto) 26.4 % 10/27/22 05:06 [place] % (Auto) 7.9 % 10/27/22 05:06 Eos % (Auto) 2.2 % 10/27/22 05:06 Baso % (Auto) 0.9 % 10/27/22 05:06 Neut # (Auto) 4.75 10^3/uL (1.8-7.7) 10/27/22 05:06 Lymph # (Auto) 2.0 10^3/uL (0.8-4.8) 10/27/22 05:06 [place] # (Auto) 0.6 10^3/uL (0.2-0.9) 10/27/22 05:06 Eos # (Auto) 0.2 10^3/uL (0.0-0.8) 10/27/22 05:06 Baso # (Auto) 0.1 10^3/uL (0.0-0.1) 10/27/22 05:06 Nucleated RBC % (auto) 0 % 10/27/22 05:06 Nucleated RBCs # 0.0 /100WBC 10/27/22 05:06 D-Dimer 0.61 ug/mIFEU (0-0.59) H 10/27/22 05:06 Sodium 133 mmol/L (136-145) L 10/27/22 05:06 Potassium 3.9 mmol/L (3.5-5.1) 10/27/22 05:06 Chloride 96 mmol/L (98-107) L 10/27/22 05:06 Carbon Dioxide 24 mmol/L (22-29) 10/27/22 05:06 Anion Gap 16.9 (5-19) 10/27/22 05:06 BUN 20 mg/dL (6-20) 10/27/22 05:06 Creatinine 1.0 mg/dL (0.7-1.2) 10/27/22 05:06 GFR Calculation 77.0 mL/min (90-130) L 10/27/22 05:06 Glucose 196 mg/dL (65-115) H 10/27/22 05:06 Calculated Osmolality 284 mOsm/kg (285-295) L 10/27/22 05:06 Calcium 8.6 mg/dL (8.5-10.5) 10/27/22 05:06 Total Bilirubin 0.3 mg/dL (0.15-1.2) 10/27/22 05:06 AST 13 U/L (0-40) 10/27/22 05:06 ALT 21 U/L (0-41) 10/27/22 05:06 Alkaline Phosphatase 97 U/L (40-130) 10/27/22 05:06 Troponin T Baseline 32 ng/L (0-15) H 10/27/22 05:06 Troponin T 120 Minute 33.20 ng/L (0-15) H 10/27/22 07:09 Delta Troponin T 1.20 ABS# (0-10) 10/27/22 07:09 NT-Pro-B Natriuret Pep 1903 pg/mL (0-125) H 10/27/22 05:06 Total Protein 7.1 g/dL (6.6-8.7) 10/27/22 05:06 Albumin 4.1 g/dL (3.5-5.2) 10/27/22 05:06 Globulin 3.0 g/dL (1.3-4.6) 10/27/22 05:06 Urine Color Yellow (Yellow) 10/27/22 05:51 Urine Appearance Clear (CLEAR) 10/27/22 05:51 Urine pH 5 (5-7) 10/27/22 05:51 Ur Specific [place] 1.025 (1.005-1.030) 10/27/22 05:51 Urine Protein Neg (Negative) 10/27/22 05:51 Urine Glucose (UA) Norm (Normal) 10/27/22 05:51 Urine Ketones Negative (Negative) 10/27/22 05:51 Urine Blood Neg (Negative) 10/27/22 05:51 Urine Nitrate Negative (Negative) 10/27/22 05:51 Urine Bilirubin Neg (Negative) 10/27/22 05:51 Urine Urobilinogen Norm mg/dL (Negative) 10/27/22 05:51 Ur Leukocyte Esterase Negative (Negative) 10/27/22 05:51 Discharge Plan Discharge Patient Disposition: Home Clinical Impression: Schizophrenia, chronic condition, CHF (congestive heart failure), COPD (chronic obstructive pulmonary disease), Chest pain Condition: Stable Prescriptions: New doxycycline hyclate 100 mg capsule 100 mg PO BID 10 Days Qty: 20 0RF prednisone 50 mg tablet 50 mg PO DAILY 5 Days Qty: 5 0RF albuterol sulfate 90 mcg/actuation HFA aerosol inhaler 2 inh inhalation Q4H PRN (Reason: shortness of breath or wheezing) Qty: 8.5 0RF Lasix 20 mg tablet 20 mg PO QAM Qty: 7 0RF potassium chloride 8 mEq capsule, extended release 8 meq PO DAILY Qty: 7 0RF Continued gabapentin 800 mg tablet 800 mg PO TID 30 Days Qty: 90 1RF Seroquel 400 mg tablet 800 mg PO BEDTIME 30 Days Qty: 60 1RF No Action albuterol sulfate 90 mcg/actuation HFA aerosol inhaler 2 inh INHALATION Q4H PRN (Reason: shortness of breath or wheezing) Qty: 18 0RF Triple Antibiotic 3.5mg-400 unit- 5,000 unit/gram Ointment 1 applic topical BID Qty: 14 0RF aspirin [[place] Low Dose Aspirin] 81 mg tablet,delayed release (DR/EC) 81 mg PO DAILY 30 Days Qty: 30 1RF ascorbic acid (vitamin C) [Vitamin C] 500 mg tablet 500 mg PO DAILY 30 Days Qty: 30 1RF albuterol sulfate 90 mcg/actuation HFA aerosol inhaler 2 puff inhalation Q6H PRN (Reason: shortness of breath or wheezing) 30 Days Qty: 6.7 1RF Discharge Orders: Discharge ED (Routine); Ordered 10/27/22 Ordered By: Lino Ling Discharge Diet: Usual diet Discharge Activity: Resume usual activity Patient Instructions: Heart Failure (ED), Schizophrenia (ED), COPD (Chronic Obstructive Pulmonary Disease) (ED) Activity Restrictions/Additional Instructions: Thank you for visiting the emergency department. You were seen and evaluated for multiple concerns including chest pain and shortness of breath. The most likely cause of your symptoms is multifactorial however does not appear to need hospitalization at this time. For your shortness of breath I will prescribe steroids and antibiotics. Please also use your albuterol metered-dose inhaler 2 puffs every 4 hours for 24 hours followed by 2 puffs every 6 hours for 24 hours followed by 2 puffs every 8 hours for 24 hours and then return to the normal schedule. For mild evidence of volume overload I will prescribe a short course of Lasix and potassium supplementation. I will message case management for cardiology follow-up. Please establish and follow-up with a primary care provider. Please follow-up with your psychiatric care provider. [facility] [phone] If you or someone you care for is experiencing a psychiatric emergency, please call the crisis hotline ([employer]) 24-hours a day, 7 days a week at [phone]. The crisis stabilization center is located on the [address] side of the hospital campus and has walk-in hours 11 AM to 9 PM. Return to the emergency department for anything that you are concerned about and feel needs emergency department evaluation. Coding Level of Care Code ED Voice Pathologist for Panchito Cooper
[2022-10-27 05:43] LABS: Troponin(5th) Baseline 32 ng/L (0-15)
[2022-10-27 06:03] LABS: Add Urine Microscopic? NO; Charge for UA Resulting for Rev
[2022-10-27 06:29] VITALS: PULSE 109; RESP 15; O2SAT 92
[2022-10-27 06:29] LABS: Bilirubin Urine Neg (Negative); Blood Urine Neg (Negative); Glucose Urine UA Norm (Normal); Ketones Urine Negative (Negative); Leukocyte Esterase Urine Negative (Negative); Nitrate Urine Negative (Negative); Protein Urine Neg (Negative); Specific Gravity, Urine 1.025 (1.005-1.030); Urine Appearance Clear (CLEAR); Urine Color Yellow (Yellow); Urobilinogen Urine Norm (Negative); pH Urine 5 (5-7)
[2022-10-27] MEDS: ipratropium-albuterol 3 mL Neb INHALATION (06:29)
[2022-10-27 06:52] LABS: NT Pro B Type Natriuretic Pept 1903 pg/mL (0-125)
--- NOTE | 2022-10-27 07:20 | ECG_ITS ---
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 Measurements Intervals [place] Rate: 91 P: 34 NV: 176 QRS: 13 QRSD: 103 T: 67 QT: 395 QTc: 487 Interpretive Statements SINUS RHYTHM WITH FREQUENT SUPRAVENTRICULAR PREMATURE COMPLEXES POSSIBLE LEFT ATRIAL ENLARGEMENT [-0.1mV P-WAVE IN V1/V2] NONSPECIFIC T-WAVE ABNORMALITY Compared to ECG 10/27/2022 05:05:46 No significant changes Electronically Signed On 10-27-2022 11:50:44 CDT by Alexis Adan M.D. [id number]
[2022-10-27 07:32] VITALS: BP 106/60; PULSE 98; RESP 14
[2022-10-27 07:33] LABS: D Dimer 0.61 ug/mIFEU (0-0.59)
--- NOTE | 2022-10-27 07:36 | CTR_ITS ---
PROCEDURE INFORMATION: Exam: CTA Chest With Contrast Exam date and time: 10/27/2022 7:50 AM Age: 57 years old Clinical indication: Shortness of breath; Additional info: SOB, cp, elevated ddimer TECHNIQUE: Imaging protocol: Computed tomographic angiography of the chest with contrast. 3D rendering (Not supervised by radiologist): MIP reconstructed images were created by the technologist. Radiation optimization: All CT scans at this facility use at least one of these dose optimization techniques: automated exposure control; mA and/or kV adjustment per patient size (includes targeted exams where dose is matched to clinical indication); or iterative reconstruction. Contrast material: OMNI 350; Contrast volume: 100 ml; Contrast route: INTRAVENOUS (IV); REPORTING DATA: Count of CT and Cardiac NM exams in prior 12 months: This patient has received [address] and 0 known cardiac nuclear medicine studies in the 12 months prior to the current study. COMPARISON: CT angio chest PE protcl [id number] 03/18/2021 8:00 PM RADIATION DOSE METRICS: Total DLP (mGy-cm): 551.2 FINDINGS: Pulmonary arteries: No pulmonary artery embolism identified. Aorta: Mild aortic arch atherosclerotic calcification without ectasia. Lungs: Unremarkable. No consolidation. No masses. Pleural spaces: No pneumothorax. No pleural effusion. Heart: Small anterior inferior pericardial effusion, increased. Coronary arteries: Left main, LAD and LCx calcified coronary atherosclerosis. Lymph nodes: Right paratracheal node measuring 9.1 mm short axis, previously 8.5 mm short axis. Right hilar nodes, largest 9.6 mm short axis, previously 9.2 mm. Left hilar nodes, largest 9.5 mm short axis, previously 7.1 mm. Bones/joints: Right proximal humeral greater tuberosity suture anchors. Thoracic spine vertebral body marginal osteophytes are noted at multiple levels. Soft tissues: Unremarkable. CT/CT angio chest PE protcl [id number] IMPRESSION: 1. No pulmonary artery embolism identified. 2. No thoracic aortic aneurysm or dissection identified. 3. Coronary atherosclerosis. 4. Small anterior inferior pericardial effusion, increased.
[2022-10-27] MEDS: iohexol 350 mg/mL 500 mL Btl (per mL) IV (07:55)
[2022-10-27 08:51] VITALS: BP 84/64; PULSE 92; O2SAT 94
--- NOTE | 2022-10-27 09:43 | PC.NURSE ---
Nurse went into patient's room to discharge patient. Patient states I want to harm myself. Nurse asked why? . Patient states Because I am out of Seroquel. Nurse states I have a prescription for Seroquel, you just need to take it to a pharmacy so they can fill it for you. Patient states I don't have enough money to buy it. Nurse ask Are you homeless and that's why you don't want to leave? Patient states yes....wait no. Patient proceeds to turn over and goes back to sleep.
--- NOTE | 2022-10-31 13:28 | DCPLANNER ---
billiard parlor manager called patient due to no primary care physician - no answer at this time
== END 2022-10-27 10:28 | disposition home or self-care (01) ==
PROVIDERS: Emergency Medicine; Emergency Provider Emergency Medicine
DX: R07.9 Chest pain, unspecified (principal); J44.9 Chronic obstructive pulmonary disease, unspecified; I50.9 Heart failure, unspecified; F20.9 Schizophrenia, unspecified; Z79.82 Long term (current) use of aspirin; Z87.891 Personal history of nicotine dependence
CPT/HCPCS: 36415; 71045; 71275; 80053; 81003; 83880; 84484; 85025; 85378; 93005; 94640; 99285; Q9967

== ENCOUNTER 2022-12-15 12:53 | Inpatient (IN) | payer MEDICAID, SELFPAY ==
[2022-12-15] VITALS (44 sets, daily range): BP systolic 126–146; BP diastolic 76–107; PULSE 81–105; RESP 15–29; TEMP 36.4–37.1; O2SAT 91–99; BMI 31.8; BMI 34.3
--- NOTE | 2022-12-15 13:18 | ECG_ITS ---
[facility] Test Date: 2022-12-15 Pat Name: David Cortes Department: Room: Gender: Male Mail Clerk: : 1965 Requested By: Bayron Hobbs Order Number: [id number] Mahesh MD: Alexis Adan M.D. Measurements Intervals [place] Rate: 88 P: 52 [place]: 190 QRS: 16 QRSD: 101 T: 66 QT: 366 QTc: 445 Interpretive Statements SINUS RHYTHM POSSIBLE RIGHT VENTRICULAR CONDUCTION DELAY [RSR (QR) IN V1/V2] SEPTAL MYOCARDIAL INFARCTION , OF INDETERMINATE AGE [40+ ms Q WAVE IN V1/V2] Compared to ECG 10/27/2022 08:21:23 Myocardial infarct finding now present T-wave abnormality no longer present Electronically Signed On 12-15-2022 14:15:03 CDT by Alexis Adan M.D. [id number]
--- NOTE | 2022-12-15 13:18 | XRR_ITS ---
PROCEDURE INFORMATION: Exam: XR Chest Exam date and time: 12/15/2022 1:57 PM Age: 57 years old Clinical indication: Shortness of breath TECHNIQUE: Imaging protocol: Radiologic exam of the chest. Views: 1 view. COMPARISON: CR (CHEST, ) 10/27/2022 5:37 AM FINDINGS: Lungs: There is indistinct though opacity right lung base that has developed that may be due to combination of pleural effusion and right basilar lung consolidation. Remaining lung miles are clear. Pleural spaces: See Lungs finding. Heart/Mediastinum: Heart is significantly enlarged, unchanged. There is pulmonary vascular distribution indicating elevated central venous pressure. Bones/joints: Unremarkable for age. XR/XR chest 1V portable [id number] IMPRESSION: 1. Pronounced cardiomegaly with elevated central venous pressure. 2. Interval development of right basilar effusion and adjacent lung consolidation.
--- NOTE | 2022-12-15 13:22 | W.ED.SOB ---
HPI - SOB/Dyspnea General: Chief Complaint: Shortness of Breath/Dyspnea Stated Complaint: sob Time Seen by Provider: 12/15/22 13:02 Source: patient Limitations: no limitations History of Present Illness: HPI Narrative: This 57-year-old male with a history of COPD, congestive heart failure and hypertension presents to the ER with shortness of breath that started few days ago. Minimal activity like walking a short distance, makes him short of breath. Also he has orthopnea which makes it hard for him to lay flat in bed. He quit smoking about 3 months ago but smokes marijuana from time to time. He also admitted to using speed about a month ago. Patient also reports diarrhea that has been going on for about 3 weeks now. Last night, he noticed blood in his stool. He has never had a colonoscopy before. He has no fever or chest pain. Currently, oxygen saturation is normal on room air. Associated symptoms: Reports chest congestion; Deny chest pain or lightheadedness Review of Systems Const: Denies: chills, body aches or change in appetite Eyes: Denies: change in vision or eye discharge ENMT: Denies: throat pain, dental pain or nasal discharge Card: Denies: chest pain or lightheadedness Resp: Reports: dyspnea, wheezing and chest congestion GI: Reports: diarrhea and hematochezia : Denies: dysuria Musc: Denies: neck pain or back pain Neuro: Denies: headache(s) or weakness in extremities Psych: Denies: depression Tab/Lymph: Denies: easy bruising All/Imm: Denies: urticaria, tongue swelling or facial swelling PFS ED PFSH: Medical History Asthma Cannabis dependence, uncomplicated CHF (congestive heart failure) COPD (chronic obstructive pulmonary disease) Homeless single person On combination antipsychotic drug therapy Psychiatric care Suicidal ideation Surgical History Status post club foot correction at Family History Mother Psychiatric illness Schizophrenia Social History Smoking and tobacco status: former smoker Smoking risk assessment/counseling performed?: Yes Tobacco counseling given: counseling >3 minutes Alcohol intake: never Household members: other Details: roommate x 1 Physical Exam Const: COMMON NORMALS: no acute distress, patient oriented x3, no limitations and alert HENMT: COMMON NORMALS: normocephalic HEAD & SCALP: normocephalic Eye: COMMON NORMALS: EOMs intact bilaterally Neck/C-Spine: COMMON NORMALS: full ROM and supple Chest: COMMONS NORMALS: normal inspection of the chest Resp: COMMON NORMALS: normal respiratory effort, No retractions and No use of accessory muscles AUSCULTATION: wheezes (Expiratory wheeze with prolonged expiratory phase.) expiratory wheezes Cardio: COMMON NORMALS: regular rate, regular rhythm and No murmurs present (Cardio) RATE: regular rate RHYTHM: regular rhythm GI: COMMON NORMALS: Normal to inspection, nondistended, normoactive bowel sounds present and non-tender : COMMON NORMALS: Yes no CVA tenderness BLADDER/KIDNEY EXAM: Yes no CVA tenderness Back/Pelvis: COMMON NORMALS: no CVA tenderness and no thoracic nor lumbar tenderness Extremity: GENERAL: Yes normal exam except as noted and No edema Neuro: COMMON NORMALS: patient oriented x3 and no focal motor deficits SENSORIUM/ORIENTATION: Yes alert Psych: COMMON NORMALS: mental status grossly normal and cooperative Course Consultations: Consultation #1: Case discussed with Dr. Cruz, hospitalist on-call. He accepted patient for admission. Time: 15:22 Vital Signs: Vital signs: Vital Signs Temperature 97.6 F 12/15/22 12:56 Pulse Rate 95 12/15/22 18:20 Respiratory Rate 27 H 12/15/22 18:20 Blood Pressure 146/95 12/15/22 18:20 Pulse Oximetry 96 12/15/22 17:56 Oxygen Delivery Me thod Room Air 12/15/22 17:56 MDM - SOB/Dyspnea Medical Decision Making Medical decision making: Patient has a history of COPD and CHF and presents with shortness of breath. On exam, he has some bilateral expiratory wheeze. Chest x-ray reveals pronounced cardiomegaly with interval development of right basilar effusion and adjacent lung consolidation. White count is normal with no left shift. IV Lasix administered. Given his worsening symptoms especially with activity intolerance, he will be admitted for further evaluation and management. Case discussed with Dr. Cruz, hospitalist on-call. He accepted patient for admission. Lab Data 12/15/22 13:34 12/15/22 13:34 Labs/Radiology: Radiology Impressions Chest X-Ray 12/15/22 13:18 IMPRESSION: 1. Pronounced cardiomegaly with elevated central venous pressure. 2. Interval development of right basilar effusion and adjacent lung consolidation. Laboratory Results WBC 7.1 10^3/uL (4.0-10.0) 12/15/22 13:34 RBC 4.52 10^6/uL (4.1-5.3) 12/15/22 13:34 Hgb 12.8 g/dL (11.7-16.6) 12/15/22 13:34 Hct 40.9 % (42.0-52.0) L 12/15/22 13:34 MCV 90.5 fl (80-94) 12/15/22 13:34 MCH 28.3 pg (28.0-34.0) 12/15/22 13:34 MCHC 31.3 g/dL (30.0-36.0) 12/15/22 13:34 RDW 14.6 % (12.1-15.1) 12/15/22 13:34 Plt Count 248 10^3/cmm (130-400) 12/15/22 13:34 MPV 8.8 fL (7.4-10.4) 12/15/22 13:34 Neut % (Auto) 67.7 % 12/15/22 13:34 Lymph % (Auto) 19.5 % 12/15/22 13:34 Fergus % (Auto) 8.3 % 12/15/22 13:34 Eos % (Auto) 3.1 % 12/15/22 13:34 Baso % (Auto) 1.0 % 12/15/22 13:34 Neut # (Auto) 4.80 10^3/uL (1.8-7.7) 12/15/22 13:34 Lymph # (Auto) 1.4 10^3/uL (0.8-4.8) 12/15/22 13:34 Fergus # (Auto) 0.6 10^3/uL (0.2-0.9) 12/15/22 13:34 Eos # (Auto) 0.2 10^3/uL (0.0-0.8) 12/15/22 13:34 Baso # (Auto) 0.1 10^3/uL (0.0-0.1) 12/15/22 13:34 Nucleated RBC % (auto) 0 % 12/15/22 13:34 Nucleated RBCs # 0.0 /100WBC 12/15/22 13:34 ESR 6 mm/hr (0-10) 12/15/22 13:34 Sodium 140 mmol/L (136-145) 12/15/22 13:34 Potassium 3.9 mmol/L (3.5-5.1) 12/15/22 13:34 Chloride 104 mmol/L (98-107) 12/15/22 13:34 Carbon Dioxide 25 mmol/L (22-29) 12/15/22 13:34 Anion Gap 14.9 (5-19) 12/15/22 13:34 BUN 18 mg/dL (6-20) 12/15/22 13:34 Creatinine 0.9 mg/dL (0.7-1.2) 12/15/22 13:34 GFR Calculation 87.0 mL/min (90-130) L 12/15/22 13:34 Glucose 138 mg/dL (65-115) H 12/15/22 13:34 Estimat Average Glucose 140 12/15/22 13:34 Hemoglobin A1c 6.5 % (4.0-6.0) H 12/15/22 13:34 Calculated Osmolality 294 mOsm/kg (285-295) 12/15/22 13:34 Calcium 8.7 mg/dL (8.5-10.5) 12/15/22 13:34 Total Bilirubin 0.2 mg/dL (0.15-1.2) 12/15/22 13:34 AST 20 U/L (0-40) 12/15/22 13:34 ALT 52 U/L (0-41) H 12/15/22 13:34 Alkaline Phosphatase 100 U/L (40-130) 12/15/22 13:34 Troponin T Baseline 26 ng/L (0-15) H 12/15/22 13:34 C-Reactive Protein 6.2 mg/L (0.0-4.9) H 12/15/22 13:34 NT-Pro-B Natriuret Pep 1563 pg/mL (0-125) H 12/15/22 13:34 Total Protein 6.5 g/dL (6.6-8.7) L 12/15/22 13:34 Albumin 4.0 g/dL (3.5-5.2) 12/15/22 13:34 Globulin 2.5 g/dL (1.3-4.6) 12/15/22 13:34 Triglycerides 284 mg/dL (0-150) H 12/15/22 13:34 Cholesterol 200 mg/dL (0-200) 12/15/22 13:34 LDL Cholesterol, Calc 91 mg/dL (50-129) 12/15/22 13:34 HDL Cholesterol 52 mg/dL (60-100) L 12/15/22 13:34 LDL/HDL Ratio 1.75 RATIO (0.00-3.22) 12/15/22 13:34 Cholesterol/HDL Ratio 3.85 mg/dL (1.0-5.00) 12/15/22 13:34 Procalcitonin 0.04 ng/mL (0-0.5) 12/15/22 13:34 TSH 0.96 uIU/mL (0.27-4.20) 12/15/22 13:34 Hepatitis A IgM Ab Non-reactive (Nonreactive) 12/15/22 13:34 Hep Bs Antigen Non-reactive (Nonreactive) 12/15/22 13:34 Hep B Core IgM Ab Non-reactive (Nonreactive) 12/15/22 13:34 Hepatitis C Antibody Non-reactive (Nonreactive) 12/15/22 13:34 HIV 1&2 Ab & HIV 1 Ag Non-reactive (Non-Reactiv) 12/15/22 13:34 HIV 1&2 Antibody Non-reactive (Non-Reactiv) 12/15/22 13:34 EKG Data EKG 1: Interpretation: Sinus rhythm, rate of 88 Normal axis normal intervals, no STEMI. 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
[2022-12-15 13:42] LABS: Basophils # 0.1 10^3/uL (0.0-0.1); Eosinophils # 0.2 10^3/uL (0.0-0.8); Eosinophils % 3.1 %; Hematocrit 40.9 % (42.0-52.0); Hemoglobin 12.8 g/dL (11.7-16.6); Lymphocytes # 1.4 10^3/uL (0.8-4.8); Lymphocytes % 19.5 %; Mean Corpuscular HGB Conc 31.3 g/dL (30.0-36.0); Mean Corpuscular Hemoglobin 28.3 pg (28.0-34.0); Mean Corpuscular Volume 90.5 fl (80-94); Mean Platelet Volume 8.8 fL (7.4-10.4); Monocytes # 0.6 10^3/uL (0.2-0.9); Monocytes % 8.3 %; Neutrophils % 67.7 %; Nucleated Red Blood Cells % 0 %; Platelet Count 248 10^3/cmm (130-400); Red Blood Count 4.52 10^6/uL (4.1-5.3); Red Cell Distribution Width 14.6 % (12.1-15.1); White Blood Count 7.1 10^3/uL (4.0-10.0)
[2022-12-15] MEDS: ipratropium-albuterol 3 mL Neb INHALATION ×2 (13:47→20:01)
[2022-12-15 14:22] LABS: Alanine Aminotransferase 52 U/L (0-41); Alkaline Phosphatase 100 U/L (40-130); Anion Gap 14.9 (5-19); Aspartate Amino Transferase 20 U/L (0-40); Blood Urea Nitrogen 18 mg/dL (6-20); Calcium 8.7 mg/dL (8.5-10.5); Carbon Dioxide 25 mmol/L (22-29); Chloride 104 mmol/L (98-107); Globulin 2.5 g/dL (1.3-4.6); Glucose 138 mg/dL (65-115); NT Pro B Type Natriuretic Pept 1563 pg/mL (0-125); Osmolality Calculated 294 mOsm/kg (285-295); Potassium 3.9 mmol/L (3.5-5.1); Sodium 140 mmol/L (136-145); Total Bilirubin 0.2 mg/dL (0.15-1.2); Total Protein 6.5 g/dL (6.6-8.7)
[2022-12-15] MEDS: dexamethasone 10 mg/mL INJ IVP (14:50)
[2022-12-15] MEDS: FUROsemide 10 mg/mL SDV 10mL 60 MG IVP (15:31)
[2022-12-15 15:58] LABS: Troponin(5th) Baseline 26 ng/L (0-15)
--- NOTE | 2022-12-15 16:02 | P.HP_ITS ---
Providers/Chief Complaint Chief Complaint: sob History of Present Illness David Cortes is a 57 year old male with a medical history of methamphetamine abuse, cannabis abuse, history of tobacco use, depression, history of BPH, history of COPD, history of CHF, who presents to [facility] due to shortness of breath for the last few days, he reports orthopnea, paroxysmal nocturnal dyspnea, reports shortness of breath and chest pain, pain is anterior, nonradiating, no diaphoresis, no lightheadedness, dizziness, he also reports diffuse musculoskeletal pains at time, diarrhea at times, reported bloody stools, no lightheadedness, no dizziness, no nausea, no vomiting does r eport poor appetite, at times feels weak fatigued and tired does report chills Review of Systems Const: Denies: fever(s) Card: Reports: chest pain, dyspnea on exertion and orthopnea Resp: Reports: dyspnea and non-productive cough GI: Denies: abdominal pain or nausea : Denies: flank pain Musc: Denies: neck pain or back pain Skin/Breast: Denies: rash Neuro: Denies: headache(s) or dizziness Psych: Reports: anxiety Medications/Allergies Home Medications Medication Instructions Recorded Confirmed Last Taken Type ascorbic acid (vitamin C) 500 mg 500 mg PO DAILY 30 days #30 tabs 09/04/22 12/15/22 12/15/22 06:30 Rx tablet (Vitamin C) albuterol sulfate 90 mcg/actuation 2 inh inhalation Q4H PRN shortness 10/27/22 12/15/22 Unknown Rx aerosol inhaler of breath or wheezing #8.5 grams gabapentin 800 mg tablet 800 mg PO TID 30 days #90 tabs 10/27/22 12/15/22 12/15/22 06:30 Rx quetiapine 400 mg tablet (Seroquel) 800 mg PO BEDTIME 30 days #60 tabs 10/27/22 12/15/22 12/14/22 Rx aspirin 81 mg tablet,delayed 81 mg PO QAM 12/15/22 12/15/22 12/15/22 06:30 History release ([place] Low Dose Aspirin) multivitamin 1 tab PO DAILY 12/15/22 12/15/22 Unknown History neomycin-bacitracn Zn-polymyx 3.5 1 applic topical BID PRN unknown 12/15/22 12/15/22 Unknown History mg-400 unit-5,000 unit/gram top oint (Triple Antibiotic) tamsulosin 0.4 mg capsule 0.4 mg PO QAM 12/15/22 12/15/22 12/15/22 History Allergies Allergy/AdvReac Type Severity Reaction Status Date / Time fentanyl Allergy ALGY-Anaphy Verified 12/15/22 13:44 laxis PFSH Acute PFSH: Medical History Asthma Cannabis dependence, uncomplicated CHF (congestive heart failure) COPD (chronic obstructive pulmonary disease) Homeless single person On combination antipsychotic drug therapy Psychiatric care Suicidal ideation Surgical History Status post club foot correction at Family History Mother Psychiatric illness Schizophrenia Social History Smoking and tobacco status: former smoker Smoking risk assessment/counseling performed?: Yes Tobacco counseling given: counseling >3 minutes Alcohol intake: never Household members: other Details: roommate x 1 Vitals/I&O/Wt Last Vital Signs Temp 97.6 F 12/15/22 12:56 Pulse 87 12/15/22 14:51 Resp 16 12/15/22 14:51 BP 126/81 12/15/22 14:51 Pulse Ox 96 12/15/22 14:51 O2 Del Method Room Air 12/15/22 14:51 Weight last 48 hrs Weight 106.594 kg Physical Exam Const: COMMON NORMALS: no acute distress and patient oriented x3 HENMT: COMMON NORMALS: normocephalic, Normal external nose present and oropharynx normal HEAD & SCALP: normocephalic NOSE: Normal external nose present Eye: COMMON NORMALS: Equal, round and reactive pupils present, EOMs intact bilaterally, conjunctivae normal and no scleral icterus CONJUNCTIVA: Yes conjunctivae normal PUPIL: Yes Equal, round and reactive pupils present Neck/C-Spine: COMMON NORMALS: full ROM, no lymphadenopathy, no JVD, Thyroid normal and No carotid bruits Lymph: LYMPHATIC: no lymphadenopathy noted Chest: COMMONS NORMALS: normal inspection of the chest Resp: COMMON NORMALS: normal respiratory effort, No retractions, No use of accessory muscles and clear to auscultation bilaterally AUSCULTATION: clear to auscultation bilaterally Cardio: COMMON NORMALS: regular rate, regular rhythm, S1 normal heart sound present, S2 normal heart sound present, No murmurs present (Cardio) and Peripheral pulses 2+ throughout RATE: regular rate RHYTHM: regular rhythm HEART SOUNDS: S1 normal heart sound present and S2 normal heart sound present PERIPHERAL PULSES: Peripheral pulses 2+ throughout GI: COMMON NORMALS: Normal to inspection, nondistended, normoactive bowel sounds present, Soft to palpation and non-tender PALPATION: Yes Soft to palpation : BLADDER/KIDNEY EXAM: Yes no CVA tenderness Back/Pelvis: COMMON NORMALS: no CVA tenderness Extremity: COMMON NORMALS: normal to inspection, full ROM, capillary refill normal and no calf tenderness NARRATIVE EXTREMITY EXAM: 1+ pitting edema Neuro: COMMON NORMALS: patient oriented x3, CN's II-XII intact bilaterally, moves all extremities, no focal motor deficits and no sensory deficits noted Psych: COMMON NORMALS: mental status grossly normal, Normal thought process present, cooperative and speech normal APPEARANCE: Yes well kempt SPEECH: Yes normal speech THOUGHT PROCESS: Normal thought process present Skin: COMMON NORMALS: turgor normal and no jaundice GENERAL SKIN EXAM: turgor normal Data 12/15/22 13:34 12/15/22 13:34 CXR: My impression: Shows cardiomegaly, with pulmonary vascular congestion EKG 1: My Interpretation: Normal sinus rhythm, does have Q waves in anterior leads A&P Assessment and plan (1) Acute exacerbation of CHF (congestive heart failure): (2) COPD (chronic obstructive pulmonary disease): (3) CHF (congestive heart failure): (4) Bloody stools: (5) Diarrhea: (6) Chest pain: (7) Fatigue: (8) Goals of care, counseling/discussion: (9) Obesity: Plan Chest pain complaints -Serial EKGs, serial troponins, telemetry monitoring -Aspirin, statin, beta-rikki, nitro as needed -Cardiac echo -We will consider stress testing based on clinical progress and troponin trend CHF exacerbation -Type unknown -Cardiac echo -Lasix 40 IV twice daily -Fluid restrictions at 1000 cc -Monitor urine output, creatinine, monitor potassium Complaints of bloody stools -Hold off on Lovenox for DVT prophylaxis -Stool studies Complaints of fatigue, malaise, diffuse muscular pain -HIV, hep C, CRP, Pro-Frankie, sed rate -Viral testing Goals of care discussion patient wants to be a full code SCDs for DVT prophylaxis, Lovenox relatively contraindicated given complaints of bloody stools Attestations Medical Necessity Statement*: Patient requires hospitalization inpatient, greater than 2 minutes, for CHF exacerbation, chest pain, fatigue, malaise, bloody stools Diagnoses Acute exacerbation of CHF (congestive heart failure) I50.9 COPD (chronic obstructive pulmonary disease) J44.9 CHF (congestive heart failure) I50.9 Bloody stools K92.1 Diarrhea R19.7 Chest pain R07.9 Fatigue R53.83 Goals of care, counseling/discussion Z71.89 Obesity E66.9
--- NOTE | 2022-12-15 16:02 | USCV_ITS ---
David Cortes Age: 57 Gender: M : 1965 Exam Date: 12/15/2022 18:54 Ordering Phys: Juanjose Cruz MD Technologist: ROXY [place] [facility] [place]: sob BP: / HR: Rhythm: Sinus Technical Quality: Adequate MEASUREMENTS (Male / Female) Normal Values 2D ECHO LV Diastolic Diameter PLAX 7.1 cm 4.2 - 5.9 / 3.9 - 5.3 cm LV Systolic Diameter PLAX 6.2 cm IVS Diastolic Thickness 0.7 cm 0.6 - 1.0 / 0.6 - 0.9 cm IVS Systolic Thickness 0.8 cm LVPW Diastolic Thickness 0.7 cm 0.6 - 1.0 / 0.6 - 0.9 cm LVPW Systolic Thickness 0.9 cm LVOT Diameter 2.5 cm LV Ejection Fraction 2D Teich 26.5 % LV Ejection Fraction MOD 2C 36.8 % LV Ejection Fraction 2C AL 36.6 % LA Diameter 4.4 cm IVC Diameter 2.1 cm M-MODE Aortic Annulus Diameter 2.4 cm LA Ao Ratio MM 2.0 MV E Point Septal Separation 1.7 cm DOPPLER AV Peak Velocity 77.0 cm/s LVOT Peak Velocity 57.0 cm/s AV Area Cont Eq vti 2.8 cm squared AV Area Cont Eq pk 3.6 cm squared MV Area PHT 5.0 cm squared Mitral E to A Ratio 1.3 MV E' Velocity 44.5 cm/s Mitral E to MV E' Ratio 12.4 Mitral E to LV E' Lateral Ratio 13.7 Mitral E to LV E' Septal Ratio 11.4 PV Peak Velocity 104.0 cm/s FINDINGS Left Ventricle Left ventricle is dilated. LV systolic function is moderate to severely reduced with EF of 30 to 35%. Moderate to severe global hypokinesis seen. Right Ventricle Grossly hypokinetic Right Atrium Not well visualized Left Atrium Dilated Mitral Valve Grossly normal. Trace mitral regurgitation. Aortic Valve Grossly normal . No significant stenosis seen. Tricuspid Valve Not well visualized Pulmonic Valve Not well visualized Pericardium Grossly normal Aorta Normal in size IVC Appears to be normal CONCLUSIONS Technically very limited quality echocardiogram because of poor ultrasonic windows. LV systolic function is moderately to severely reduced with EF of 30 to 35%. Moderate to severe global hypokinesis seen Right ventricle is grossly hypokinetic. Left atrial dilation Trace mitral regurgitation Valvular structures are not very well visualized. No comparison studies are available Alexis Adan MD (Electronically Signed) Final Date: 16 December 2022 17:06 S
[2022-12-15 16:03] LABS: C Reactive Protein 6.2 mg/L (0.0-4.9)
[2022-12-15 16:10] LABS: Procalcitonin 0.04 ng/mL (0-0.5)
[2022-12-15 16:48] LABS: Troponin 5 2HR 24.63 ng/L (0-15)
[2022-12-15 16:51] LABS: Amphetamines Screen Urine Negative (Negative); Barbiturates Screen Urine Negative (Negative); Benzodiazepines Screen Urine Negative (Negative); Cocaine Screen Urine Negative (Negative); Opiate Screen Urine Negative (Negative); PCP Screen Urine Negative (Negative); THC Screen Urine Positive (Negative)
[2022-12-15 17:07] LABS: Alcohol Level < 10 mg/dL (0-10); Troponin 5 2HR Delta -1.37 ABS# (0-10)
[2022-12-15 17:52] LABS: Erythrocyte Sedimentation Rate 6 mm/hr (0-10)
[2022-12-15 18:10] LABS: Estmated Average Glucose 140; Hemoglobin A1C 6.5 % (4.0-6.0)
[2022-12-15 18:18] LABS: Chol HDL Ratio 3.85 mg/dL (1.0-5.00); Cholesterol 200 mg/dL (0-200); HDL Cholesterol 52 mg/dL (60-100); HIV 1 & 2 Antibody Non-Reactive (Non-Reactiv); HIV 1 & 2 Antigen Non-Reactive (Non-Reactiv); LDL Cholesterol Calculated 91 mg/dL (50-129); LDL HDL Ratio 1.75 RATIO (0.00-3.22); Thyroid Stimulating Hormone 0.96 uIU/mL (0.27-4.20); Triglycerides 284 mg/dL (0-150)
[2022-12-15 18:20] LABS: Hepatitis A Antibody IgM Non-Reactive (Nonreactive); Hepatitis B Core IgM Non-Reactive (Nonreactive); Hepatitis B Surface Antigen Non-Reactive (Nonreactive); Hepatitis C Virus Antibody Non-Reactive (Nonreactive)
[2022-12-15] MEDS: carvedilol 3.125 mg Tablet PO (18:27)
[2022-12-15] MEDS: pantoprazole 40 mg SDV IVP (18:28)
[2022-12-15 20:05] LABS: Adenovirus Not Detected (NOT DETECT); Chlamydia Pneumoniae Not Detected (NOT DETECT); Coronavirus 229E,HKU1,NL63,OC4 Not Detected (NOT DETECT); Human Metapneumovirus Not Detected (NOT DETECT); Human Rhinovirus/Enterovirus Not Detected (NOT DETECT); Influenza A Not Detected (NOT DETECT); Influenza A H1 Not Detected (NOT DETECT); Influenza A H1-2009 Not Detected (NOT DETECT); Influenza A H3 Not Detected (NOT DETECT); Influenza B Not Detected (NOT DETECT); Mycoplasma Pneumoniae Not Detected (NOT DETECT); Parainfluenza Virus Type 1 Not Detected (NOT DETECT); Parainfluenza Virus Type 2 Not Detected (NOT DETECT); Parainfluenza Virus Type 3 Not Detected (NOT DETECT); Parainfluenza Virus Type 4 Not Detected (NOT DETECT); Respiratory Syncytial Virus A Not Detected (NOT DETECT); Respiratory Syncytial Virus B Not Detected (NOT DETECT); SARS-COV-2 Not Detected (NOT DETECT)
[2022-12-15] MEDS: gabapentin 400 mg Capsule 800 MG PO (20:54)
[2022-12-15] MEDS: quetiapine 300 mg Tablet 600 MG PO (20:54)
[2022-12-15] MEDS: atorvastatin 40 mg Tablet PO (20:54)
[2022-12-15] MEDS: acetaminophen 325 mg Tablet 650 MG PO (21:05)
[2022-12-15] MEDS: FUROsemide 10 mg/mL SDV 4mL 40 MG IVP (21:05)
[2022-12-16] VITALS (77 sets, daily range): BP systolic 101–143; BP diastolic 72–97; PULSE 74–98; RESP 13–32; TEMP 36.4–36.7; O2SAT 90–98
[2022-12-16 04:41] LABS: Basophils % 0.2 %; Hematocrit 45.9 % (42.0-52.0); Hemoglobin 14.5 g/dL (11.7-16.6); Lymphocytes # 0.8 10^3/uL (0.8-4.8); Lymphocytes % 10.2 %; Mean Corpuscular HGB Conc 31.6 g/dL (30.0-36.0); Mean Corpuscular Hemoglobin 28.1 pg (28.0-34.0); Monocytes # 0.3 10^3/uL (0.2-0.9); Monocytes % 3.9 %; Neutrophils # 6.84 10^3/uL (1.8-7.7); Neutrophils % 85.3 %; Nucleated Red Blood Cells % 0 %; Platelet Count 296 10^3/cmm (130-400); Red Blood Count 5.16 10^6/uL (4.1-5.3); Red Cell Distribution Width 14.5 % (12.1-15.1)
[2022-12-16 05:02] LABS: Alanine Aminotransferase 52 U/L (0-41); Albumin Level 4.3 g/dL (3.5-5.2); Alkaline Phosphatase 101 U/L (40-130); Anion Gap 15.3 (5-19); Aspartate Amino Transferase 17 U/L (0-40); Blood Urea Nitrogen 17 mg/dL (6-20); Calcium 9.2 mg/dL (8.5-10.5); Carbon Dioxide 27 mmol/L (22-29); Chloride 101 mmol/L (98-107); Creatinine Clr Calc Pharmacy 118.4333; Globulin 2.9 g/dL (1.3-4.6); Glucose 134 mg/dL (65-115); Magnesium 2.2 mg/dL (1.7-2.3); Osmolality Calculated 292 mOsm/kg (285-295); Phosphorus 3.6 mg/dL (2.5-4.5); Potassium 4.3 mmol/L (3.5-5.1); Sodium 139 mmol/L (136-145); Total Bilirubin 0.3 mg/dL (0.15-1.2); Total Protein 7.2 g/dL (6.6-8.7)
[2022-12-16 05:07] LABS: NT Pro B Type Natriuretic Pept 1894 pg/mL (0-125)
[2022-12-16] MEDS: tamsulosin 0.4 mg Capsule PO (05:09)
[2022-12-16] MEDS: aspirin 81 mg EC Tablet PO (05:09)
[2022-12-16] MEDS: acetaminophen 325 mg Tablet 650 MG PO ×2 (08:05→18:18)
[2022-12-16] MEDS: carvedilol 3.125 mg Tablet PO ×2 (09:41→17:34)
[2022-12-16] MEDS: potassium chloride ER 20 mEq Tablet PO (09:41)
[2022-12-16] MEDS: FUROsemide 10 mg/mL SDV 4mL 40 MG IVP (09:41)
[2022-12-16] MEDS: gabapentin 400 mg Capsule 800 MG PO ×3 (09:41→20:18)
[2022-12-16] MEDS: ipratropium-albuterol 3 mL Neb INHALATION ×2 (09:49→21:14)
[2022-12-16] MEDS: dexamethasone 10 mg/mL INJ 6 MG IVP (10:43)
[2022-12-16] MEDS: doxycycline 100 MG in sodium chloride 0.9% (plus) 100 ML IV ×2 (10:44→22:17)
--- NOTE | 2022-12-16 14:30 | ECG_ITS ---
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 Measurements Intervals Marble Rate: 82 P: 61 IA: 182 QRS: 32 QRSD: 106 T: 67 QT: 394 QTc: 462 Interpretive Statements SINUS RHYTHM POSSIBLE LEFT ATRIAL ENLARGEMENT [-0.1mV P-WAVE IN V1/V2] Compared to ECG 12/15/2022 13:28:27 Myocardial infarct finding no longer present Electronically Signed On 12-16-2022 16:43:19 CDT by Alexis Adan M.D. [id number]
[2022-12-16 15:27] LABS: Anion Gap 13.4 (5-19); Blood Urea Nitrogen 20 mg/dL (6-20); Calcium 9.3 mg/dL (8.5-10.5); Carbon Dioxide 29 mmol/L (22-29); Chloride 97 mmol/L (98-107); Glucose 170 mg/dL (65-115); Magnesium 2.2 mg/dL (1.7-2.3); Osmolality Calculated 287 mOsm/kg (285-295); Potassium 4.4 mmol/L (3.5-5.1); Sodium 135 mmol/L (136-145)
--- NOTE | 2022-12-16 16:40 | PM.PN ---
Subjective Subjective: Patient was seen this morning, he continues to complain of shortness of breath, does report wheezing, productive cough reported Vitals/I&O/Wt Last Vital Signs Temp 97.6 F 12/16/22 07:53 Pulse 83 12/16/22 16:00 Resp 18 12/16/22 16:00 BP 137/90 12/16/22 16:00 Pulse Ox 97 12/16/22 16:00 O2 Del Method Nasal Cannula 12/16/22 16:00 O2 Flow Rate 2 12/16/22 09:49 12/16/22 12/16/22 12/16/22 06:59 14:59 22:59 Intake Total 900 / 1140 460 / 460 Output Total 450 / 4100 600 / 600 Balance 450 / -2960 -140 / -140 Weight last 48 hrs Weight 114.759 kg Weight 106.594 kg Physical Exam Const: COMMON NORMALS: no acute distress and patient oriented x3 Resp: COMMON NORMALS: normal respiratory effort, No retractions and No use of accessory muscles OTHER: Wheezing in all lung miles Cardio: COMMON NORMALS: regular rate, regular rhythm, S1 normal heart sound present and S2 normal heart sound present RATE: regular rate RHYTHM: regular rhythm HEART SOUNDS: S1 normal heart sound present and S2 normal heart sound present GI: COMMON NORMALS: Normal to inspection, nondistended, normoactive bowel sounds present and non-tender Extremity: COMMON NORMALS: no pedal edema Neuro: COMMON NORMALS: patient oriented x3 Psych: COMMON NORMALS: mental status grossly normal Data 12/16/22 03:22 12/16/22 15:03 A&P Assessment and plan (1) Acute exacerbation of CHF (congestive heart failure): (2) COPD (chronic obstructive pulmonary disease): (3) CHF (congestive heart failure): (4) Bloody stools: (5) Diarrhea: (6) Chest pain: (7) Fatigue: (8) Goals of care, counseling/discussion: (9) Obesity: (10) NSTEMI (non-ST elevated myocardial infarction): (11) COPD exacerbation: (12) Hypertriglyceridemia: Plan Chest pain complaints -Telemetry monitoring -120-minute troponin 24, delta of 1.37 -Aspirin, statin, beta-rikki, nitro as needed -Cardiac echo pending -We will consider stress testing based on clinical progress and troponin trend CHF exacerbation -Type unknown -Cardiac echo -Lasix 40 IV every 24 hours, diuresed over 3 L -Fluid restrictions at 1000 cc -Monitor urine output, creatinine, monitor potassium COPD exacerbation, Decadron 6 mg IV push every 24 hours, with doxycycline 100 twice daily Complaints of bloody stools -Hold off on Lovenox for DVT prophylaxis -Stool studies Complaints of fatigue, malaise, diffuse muscular pain -HIV, hep C, CRP, Pro-Frankie, sed rate all negative -Viral testing negative Hypertriglyceridemia, 24 Goals of care discussion patient wants to be a full code SCDs for DVT prophylaxis, Lovenox relatively contraindicated given complaints of bloody stools Attestations Medical Necessity Statement*: Patient requires hospitalization for chest pain, CHF COPD Diagnoses Acute exacerbation of CHF (congestive heart failure) I50.9 COPD (chronic obstructive pulmonary disease) J44.9 CHF (congestive heart failure) I50.9 Bloody stools K92.1 Diarrhea R19.7 Chest pain R07.9 Fatigue R53.83 Goals of care, counseling/discussion Z71.89 Obesity E66.9 NSTEMI (non-ST elevated myocardial infarction) I21.4 COPD exacerbation J44.1 Hypertriglyceridemia E78.1
[2022-12-16] MEDS: pantoprazole 40 mg SDV IVP (17:34)
[2022-12-16] MEDS: morphine 4 mg/mL SDV 1 mL 2 MG IVP (19:45)
[2022-12-16] MEDS: atorvastatin 40 mg Tablet PO (20:18)
[2022-12-16] MEDS: quetiapine 300 mg Tablet 600 MG PO (20:18)
[2022-12-17] VITALS (92 sets, daily range): BP systolic 114–149; BP diastolic 71–87; PULSE 67–101; RESP 14–28; TEMP 36.4–36.6; O2SAT 87–100
[2022-12-17 05:59] LABS: Basophils % 0.3 %; Eosinophils % 0.1 %; Lymphocytes # 1.5 10^3/uL (0.8-4.8); Lymphocytes % 12.7 %; Mean Corpuscular HGB Conc 31.8 g/dL (30.0-36.0); Mean Corpuscular Hemoglobin 28.9 pg (28.0-34.0); Mean Corpuscular Volume 90.9 fl (80-94); Mean Platelet Volume 9.5 fL (7.4-10.4); Monocytes # 0.8 10^3/uL (0.2-0.9); Monocytes % 6.7 %; Neutrophils # 9.54 10^3/uL (1.8-7.7); Neutrophils % 79.8 %; Nucleated Red Blood Cells % 0 %; Platelet Count 290 10^3/cmm (130-400); Red Blood Count 4.84 10^6/uL (4.1-5.3); Red Cell Distribution Width 14.6 % (12.1-15.1)
[2022-12-17] MEDS: tamsulosin 0.4 mg Capsule PO (06:06)
[2022-12-17] MEDS: aspirin 81 mg EC Tablet PO (06:06)
[2022-12-17] MEDS: acetaminophen 325 mg Tablet 650 MG PO (06:09)
[2022-12-17 06:38] LABS: Alanine Aminotransferase 36 U/L (0-41); Albumin Level 3.9 g/dL (3.5-5.2); Alkaline Phosphatase 91 U/L (40-130); Anion Gap 13.2 (5-19); Aspartate Amino Transferase 10 U/L (0-40); Blood Urea Nitrogen 22 mg/dL (6-20); Calcium 8.5 mg/dL (8.5-10.5); Carbon Dioxide 28 mmol/L (22-29); Chloride 102 mmol/L (98-107); Globulin 2.5 g/dL (1.3-4.6); Glucose 129 mg/dL (65-115); Magnesium 2.2 mg/dL (1.7-2.3); NT Pro B Type Natriuretic Pept 705 pg/mL (0-125); Osmolality Calculated 293 mOsm/kg (285-295); Potassium 4.2 mmol/L (3.5-5.1); Sodium 139 mmol/L (136-145); Total Bilirubin 0.2 mg/dL (0.15-1.2); Total Protein 6.4 g/dL (6.6-8.7)
[2022-12-17] MEDS: gabapentin 400 mg Capsule 800 MG PO ×3 (08:16→20:54)
[2022-12-17] MEDS: potassium chloride ER 20 mEq Tablet PO (08:16)
[2022-12-17] MEDS: carvedilol 3.125 mg Tablet PO ×2 (08:16→17:21)
[2022-12-17] MEDS: metOLazone 5 MG Tablet PO (08:42)
[2022-12-17] MEDS: FUROsemide 10 mg/mL SDV 4mL 40 MG IVP (08:42)
[2022-12-17] MEDS: doxycycline 100 MG in sodium chloride 0.9% (plus) 100 ML IV ×2 (10:23→23:34)
[2022-12-17] MEDS: polyethylene glycol 3350 Pkt 17 gm PO (10:23)
[2022-12-17] MEDS: dexamethasone 10 mg/mL INJ 6 MG IVP (10:24)
--- NOTE | 2022-12-17 15:57 | PM.PN ---
Subjective Subjective: Was seen this morning, he feels a bit better, he can lie flat, still has some wheezing, no chest pain, palpitations I had a discussion about his echocardiogram results, and cardiology consultation, his ejection fraction is diminished, I am concerned for underlying CAD, I discussed coronary angiography he is agreeable to proceed, I will have cardiology come by and see him Vitals/I&O/Wt Last Vital Signs Temp 97.6 F 12/17/22 03:52 Pulse 86 12/17/22 15:32 Resp 16 12/17/22 15:32 BP 130/87 12/17/22 15:32 Pulse Ox 97 12/17/22 15:32 O2 Del Method Nasal Cannula 12/17/22 15:32 O2 Flow Rate 2 12/17/22 15:32 12/17/22 12/17/22 12/17/22 06:59 14:59 22:59 Intake Total 340 / 1400 918 / 918 Output Total 500 / 1400 1580 / 1580 600 / 2180 Balance -160 / 0 -662 / -662 -600 / -1262 Weight last 48 hrs Weight 114.759 kg Physical Exam Const: COMMON NORMALS: no acute distress and patient oriented x3 Resp: COMMON NORMALS: normal respiratory effort, No retractions and No use of accessory muscles AUSCULTATION: wheezes Cardio: COMMON NORMALS: regular rate, regular rhythm, S1 normal heart sound present and S2 normal heart sound present RATE: regular rate RHYTHM: regular rhythm HEART SOUNDS: S1 normal heart sound present and S2 normal heart sound present GI: COMMON NORMALS: Normal to inspection, nondistended, normoactive bowel sounds present and non-tender Extremity: COMMON NORMALS: no pedal edema Neuro: COMMON NORMALS: patient oriented x3 Psych: COMMON NORMALS: mental status grossly normal Data 12/17/22 03:57 12/17/22 03:57 A&P Assessment and plan (1) Acute exacerbation of CHF (congestive heart failure): (2) COPD (chronic obstructive pulmonary disease): (3) CHF (congestive heart failure): (4) Bloody stools: (5) Diarrhea: (6) Chest pain: (7) Fatigue: (8) Goals of care, counseling/discussion: (9) Obesity: (10) NSTEMI (non-ST elevated myocardial infarction): (11) COPD exacerbation: (12) Hypertriglyceridemia: (13) Decreased cardiac ejection fraction: (14) Systolic CHF: Plan Chest pain complaints -Telemetry monitoring -120-minute troponin 24, delta of 1.37 -Aspirin, statin, beta-rikki, nitro as needed -Cardiac echo Technically very limited quality echocardiogram because of poor ?ultrasonic windows. ?LV systolic function is moderately to severely reduced with EF ?of 30 to 35%.? Moderate to severe global hypokinesis seen ?Right ventricle is grossly hypokinetic. ?Left atrial dilation ?Trace mitral regurgitation ?Valvular structures are not very well visualized. ?No comparison studies are available -Spoke with cardiology, cardiology will consult, possible plans on coronary angiogram CHF exacerbation -Type unknown -Cardiac echo -Lasix 40 IV every 24 hours, diuresed over 5 L -Fluid restrictions at 1000 cc -Monitor urine output, creatinine, monitor potassium COPD exacerbation, Decadron 6 mg IV push every 24 hours, with doxycycline 100 twice daily Complaints of bloody stools -Hold off on Lovenox for DVT prophylaxis -Stool studies Complaints of fatigue, malaise, diffuse muscular pain -HIV, hep C, CRP, Pro-Frankie, sed rate all negative -Viral testing negative Hypertriglyceridemia, 240 Goals of care discussion patient wants to be a full code SCDs for DVT prophylaxis, lovenox Plan for today, spoke to cardiology n.p.o. midnight possible coronary angiography tomorrow morning, will continue diuresis, continue Decadron, continue doxycycline Attestations Medical Necessity Statement*: Patient requires hospitalization for chest pain, CHF, diminished ejection fraction Diagnoses Acute exacerbation of CHF (congestive heart failure) I50.9 COPD (chronic obstructive pulmonary disease) J44.9 CHF (congestive heart failure) I50.9 Bloody stools K92.1 Diarrhea R19.7 Chest pain R07.9 Fatigue R53.83 Goals of care, counseling/discussion Z71.89 Obesity E66.9 NSTEMI (non-ST elevated myocardial infarction) I21.4 COPD exacerbation J44.1 Hypertriglyceridemia E78.1 Decreased cardiac ejection fraction R93.1 Systolic CHF I50.20
--- NOTE | 2022-12-17 17:00 | PM.CONSULT ---
Providers/Reason For Consult Consulting Physician/Specialty*: Alexis Adan MD/ Cardiology Reason for Consult*: Congestive heart failure Requesting Physician: Dr Cruz Attending Physician: Juanjose Cruz MD History of Present Illness History of Present Illness David Cortes is a 57 year old male with past medical history of for drug abuse, depression who had presented to the hospital with worsening shortness of breath. He had an echocardiogram performed that showed severely reduced LV systolic function with EF of 30 to 35%. Patient also has a substernal pressure occasionally. Symptoms have been worsening. EKG shows normal sinus rhythm with septal lead Q waves. He is diuresing well. Review of Systems Const: Denies: fever(s) Card: Reports: chest pain, dyspnea on exertion and orthopnea Resp: Reports: dyspnea and non-productive cough GI: Denies: abdominal pain or nausea : Denies: flank pain Musc: Denies: neck pain or back pain Skin/Breast: Denies: rash Neuro: Denies: headache(s) or dizziness Psych: Reports: anxiety Medications/Allergies Home Medications Medication Instructions Recorded Confirmed Last Taken Type ascorbic acid (vitamin C) 500 mg 500 mg PO DAILY 30 days #30 tabs 09/04/22 12/15/22 12/15/22 06:30 Rx tablet (Vitamin C) albuterol sulfate 90 mcg/actuation 2 inh inhalation Q4H PRN shortness 10/27/22 12/15/22 Unknown Rx aerosol inhaler of breath or wheezing #8.5 grams gabapentin 800 mg tablet 800 mg PO TID 30 days #90 tabs 10/27/22 12/15/22 12/15/22 06:30 Rx quetiapine 400 mg tablet (Seroquel) 800 mg PO BEDTIME 30 days #60 tabs 10/27/22 12/15/22 12/14/22 Rx aspirin 81 mg tablet,delayed 81 mg PO QAM 12/15/22 12/15/22 12/15/22 06:30 History release ([place] Low Dose Aspirin) multivitamin 1 tab PO DAILY 12/15/22 12/15/22 Unknown History neomycin-bacitracn Zn-polymyx 3.5 1 applic topical BID PRN unknown 12/15/22 12/15/22 Unknown History mg-400 unit-5,000 unit/gram top oint (Triple Antibiotic) tamsulosin 0.4 mg capsule 0.4 mg PO QAM 12/15/22 12/15/22 12/15/22 History Allergies Allergy/AdvReac Type Severity Reaction Status Date / Time fentanyl Allergy ALGY-Anaphy Verified 12/15/22 13:44 laxis Current Medications Generic Name Dose Route Start Last Admin Trade Name Freq PRN Reason Stop Dose Admin Acetaminophen 650 mg 12/15/22 17:22 12/17/22 06:09 Acetaminophen 325 Mg Tablet PO 650 mg Q6H PRN Administration Mild/Mod Pain Or Temp >/= 101 Albuterol/Ipratropium 3 ml 12/15/22 17:22 12/16/22 21:14 Ipratropium-Albuterol 3 Ml Neb INHALATION 3 ml Q6H PRN Administration SHORTNESS OF BREATH Aspirin 81 mg 12/16/22 06:00 12/17/22 06:06 Aspirin 81 Mg Ec Tablet PO 81 mg QAM JENNIFER Administration Atorvastatin Calcium 40 mg 12/15/22 21:00 12/16/22 20:18 Atorvastatin 40 Mg Tablet PO 40 mg BEDTIME JENNIFER Administration Carvedilol 3.125 mg 12/15/22 18:00 12/17/22 08:16 Carvedilol 3.125 Mg Tablet PO 3.125 mg BID JENNIFER Administration Dexamethasone 6 mg 12/16/22 10:30 12/17/22 10:24 Dexamethasone 10 Mg/Ml Inj IVP 6 mg Q24H JENNIFER Administration Gabapentin 800 mg 12/15/22 21:00 12/17/22 15:30 Gabapentin 400 Mg Capsule PO 800 mg TID JENNIFER Administration Doxycycline Hyclate 100 mg/ 100 mls @ 100 mls/hr 12/16/22 11:00 12/17/22 11:45 Sodium Chloride IV Infused Q12H JENNIFER Infusion Protocol Morphine Sulfate 2 mg 12/15/22 17:22 12/16/22 19:45 Morphine 4 Mg/Ml Sdv 1 Ml IVP 2 mg Q4H PRN Administration SEVERE PAIN Pantoprazole Sodium 40 mg 12/15/22 18:00 12/16/22 17:34 Pantoprazole 40 Mg Sdv IVP 40 mg Q24H JENNIFER Administration Polyethylene Glycol 17 gm 12/17/22 10:15 12/17/22 10:23 Polyethylene Glycol 3350 Pkt 17 Gm PO 17 gm DAILY JENNIFER Administration Potassium Chloride 20 meq 12/16/22 09:25 12/17/22 08:16 Potassium Chloride Er 20 Meq Tablet PO 20 meq DAILY JENNIFER Administration Quetiapine Fumarate 600 mg 12/15/22 21:00 12/16/22 20:18 Quetiapine 300 Mg Tablet PO 600 mg BEDTIME JENNIFER Administration Tamsulosin HCl 0.4 mg 12/16/22 06:00 12/17/22 06:06 Tamsulosin 0.4 Mg Capsule PO 0.4 mg QAM JENNIFER Administration PFSH Acute PFSH: Medical History Asthma Cannabis dependence, uncomplicated CHF (congestive heart failure) COPD (chronic obstructive pulmonary disease) Homeless single person On combination antipsychotic drug therapy Psychiatric care Suicidal ideation Surgical History Status post club foot correction at Family History Mother Psychiatric illness Schizophrenia Social History Smoking and tobacco status: former smoker Smoking risk assessment/counseling performed?: Yes Tobacco counseling given: counseling >3 minutes Alcohol intake: never Household members: other Details: roommate x 1 Vitals/I&O/Wt Last Vital Signs Temp 97.6 F 12/17/22 03:52 Pulse 86 12/17/22 15:32 Resp 16 12/17/22 15:32 BP 130/87 12/17/22 15:32 Pulse Ox 97 12/17/22 15:32 O2 Del Method Nasal Cannula 12/17/22 15:32 O2 Flow Rate 2 12/17/22 15:32 12/17/22 12/17/22 12/17/22 06:59 14:59 22:59 Intake Total 340 / 1400 918 / 918 Output Total 500 / 1400 1580 / 1580 600 / 2180 Balance -160 / 0 -662 / -662 -600 / -1262 Physical Exam Narrative: GENERAL: Patient is alert, awake and oriented x3. [] NECK: No jugular vein distension. [] HEENT: No cyanosis. No icterus. No pallor. [] HEART: Regular S1 and S2. LUNGS: Has bilateral crackles.. [] CENTRAL NERVOUS SYSTEM: Grossly nonfocal. [] EXTREMITIES: Lower extremities with 1+ edema bilaterally. Data 12/19/22 04:18 12/19/22 04:18 A&P Assessment and plan (1) Systolic CHF: (2) Decreased cardiac ejection fraction: (3) Obesity: (4) Acute exacerbation of CHF (congestive heart failure): (5) Depression: (6) Tobacco use disorder: Plan Patient has presented with congestive heart failure symptoms and is found to have significantly decreased LV systolic function. He also has on and off chest pressure. We will proceed with coronary angiogram with possible percutaneous coronary intervention. Risks and benefits of the procedure have been discussed. Patient understands the risks and wants to proceed. Patient needs further diuresis today. Continue IV Lasix. He will also need guideline directed heart failure therapy N.p.o. past midnight. Thank you for involving us with care of this patient. We will continue to follow. Please call with questions. Consult Attestations Medical Necessity Statement: Care expected to cross 2 midnights. Coding Level of Care Code Acute Code for [facility] Fwd Diagnoses Systolic CHF I50.20 Decreased cardiac ejection fraction R93.1 Obesity E66.9 Acute exacerbation of CHF (congestive heart failure) I50.9 Depression F32.A Tobacco use disorder F17.200
[2022-12-17] MEDS: enoxaparin 40 mg/0.4 mL Syringe SUBCUT (17:21)
[2022-12-17] MEDS: pantoprazole 40 mg SDV IVP (17:21)
[2022-12-17] MEDS: ipratropium-albuterol 3 mL Neb INHALATION (18:07)
[2022-12-17] MEDS: atorvastatin 40 mg Tablet PO (20:54)
[2022-12-17] MEDS: quetiapine 300 mg Tablet 600 MG PO (20:54)
[2022-12-18] VITALS (70 sets, daily range): BP systolic 118–155; BP diastolic 81–99; PULSE 69–150; RESP 9–30; TEMP 36.6; O2SAT 92–98
[2022-12-18] MEDS: tamsulosin 0.4 mg Capsule PO (05:29)
[2022-12-18] MEDS: aspirin 81 mg EC Tablet PO (05:29)
[2022-12-18 05:50] LABS: Basophils % 0.3 %; Eosinophils % 0.1 %; Hematocrit 47.9 % (42.0-52.0); Hemoglobin 15.3 g/dL (11.7-16.6); Lymphocytes # 1.8 10^3/uL (0.8-4.8); Lymphocytes % 14.8 %; Mean Corpuscular HGB Conc 31.9 g/dL (30.0-36.0); Mean Corpuscular Hemoglobin 28.3 pg (28.0-34.0); Mean Corpuscular Volume 88.5 fl (80-94); Mean Platelet Volume 9.3 fL (7.4-10.4); Monocytes # 0.9 10^3/uL (0.2-0.9); Monocytes % 7.2 %; Neutrophils # 9.46 10^3/uL (1.8-7.7); Neutrophils % 77.1 %; Nucleated Red Blood Cells % 0 %; Platelet Count 330 10^3/cmm (130-400); Red Blood Count 5.41 10^6/uL (4.1-5.3); Red Cell Distribution Width 14.5 % (12.1-15.1); White Blood Count 12.3 10^3/uL (4.0-10.0)
[2022-12-18 06:20] LABS: Alanine Aminotransferase 31 U/L (0-41); Albumin Level 4.2 g/dL (3.5-5.2); Alkaline Phosphatase 100 U/L (40-130); Anion Gap 14.8 (5-19); Aspartate Amino Transferase 7 U/L (0-40); Blood Urea Nitrogen 26 mg/dL (6-20); Calcium 9.2 mg/dL (8.5-10.5); Carbon Dioxide 30 mmol/L (22-29); Chloride 96 mmol/L (98-107); Creatinine Clr Calc Pharmacy 118.4333; Globulin 2.9 g/dL (1.3-4.6); Glucose 120 mg/dL (65-115); Magnesium 2.3 mg/dL (1.7-2.3); NT Pro B Type Natriuretic Pept 642 pg/mL (0-125); Osmolality Calculated 290 mOsm/kg (285-295); Phosphorus 4.3 mg/dL (2.5-4.5); Potassium 3.8 mmol/L (3.5-5.1); Sodium 137 mmol/L (136-145); Total Bilirubin 0.2 mg/dL (0.15-1.2); Total Protein 7.1 g/dL (6.6-8.7)
[2022-12-18] MEDS: gabapentin 400 mg Capsule 800 MG PO ×3 (08:17→19:31)
[2022-12-18] MEDS: carvedilol 3.125 mg Tablet PO ×2 (08:17→17:43)
[2022-12-18] MEDS: potassium chloride ER 20 mEq Tablet PO (08:17)
[2022-12-18] MEDS: dexamethasone 10 mg/mL INJ 6 MG IVP (12:10)
[2022-12-18] MEDS: doxycycline 100 MG in sodium chloride 0.9% (plus) 100 ML IV ×2 (12:10→22:50)
[2022-12-18] MEDS: acetaminophen 325 mg Tablet 650 MG PO (12:29)
--- NOTE | 2022-12-18 13:53 | PM.PN ---
Subjective Subjective: Patient was seen this morning, continues to complain of wheezing, no chest pain, no palpitations, shortness of breath has improved, Vitals/I&O/Wt Last Vital Signs Temp 97.8 F 12/18/22 03:45 Pulse 81 12/18/22 11:30 Resp 19 H 12/18/22 11:30 BP 124/87 12/18/22 11:30 Pulse Ox 95 12/18/22 11:30 O2 Del Method Nasal Cannula 12/18/22 11:30 O2 Flow Rate 2 12/18/22 03:45 12/17/22 12/18/22 12/18/22 22:59 06:59 14:59 Intake Total 240 / 1158 100 / 1258 360 / 360 Output Total 850 / 2430 350 / 2780 375 / 375 Balance -610 / -1272 -250 / -1522 -15 / -15 Physical Exam Const: COMMON NORMALS: no acute distress and patient oriented x3 Resp: COMMON NORMALS: normal respiratory effort, No retractions and No use of accessory muscles AUSCULTATION: wheezes Cardio: COMMON NORMALS: regular rate, regular rhythm, S1 normal heart sound present and S2 normal heart sound present RATE: regular rate RHYTHM: regular rhythm HEART SOUNDS: S1 normal heart sound present and S2 normal heart sound present GI: COMMON NORMALS: Normal to inspection, nondistended, normoactive bowel sounds present and non-tender Extremity: COMMON NORMALS: no pedal edema Neuro: COMMON NORMALS: patient oriented x3 Psych: COMMON NORMALS: mental status grossly normal Data 12/18/22 04:32 12/18/22 04:32 A&P Assessment and plan (1) Acute exacerbation of CHF (congestive heart failure): (2) COPD (chronic obstructive pulmonary disease): (3) CHF (congestive heart failure): (4) Bloody stools: (5) Diarrhea: (6) Chest pain: (7) Fatigue: (8) Goals of care, counseling/discussion: (9) Obesity: (10) NSTEMI (non-ST elevated myocardial infarction): (11) COPD exacerbation: (12) Hypertriglyceridemia: (13) Decreased cardiac ejection fraction: (14) Systolic CHF: Plan Chest pain complaints -Telemetry monitoring -120-minute troponin 24, delta of 1.37 -Aspirin, statin, beta-rikki, nitro as needed -Cardiac echo Technically very limited quality echocardiogram because of poor ?ultrasonic windows. ?LV systolic function is moderately to severely reduced with EF ?of 30 to 35%.? Moderate to severe global hypokinesis seen ?Right ventricle is grossly hypokinetic. ?Left atrial dilation ?Trace mitral regurgitation ?Valvular structures are not very well visualized. ?No comparison studies are available -Plans on coronary angiography today CHF exacerbation, systolic CHF exacerbation - -Cardiac echo -As there is plans on coronary angiography we will hold off on Lasix, diuresed over 5 L -Fluid restrictions at 1000 cc -Monitor urine output, creatinine, monitor potassium COPD exacerbation, Decadron 6 mg IV push every 24 hours, with doxycycline 100 twice daily Complaints of bloody stools -None currently -Stool studies Complaints of fatigue, malaise, diffuse muscular pain -HIV, hep C, CRP, Pro-Frankie, sed rate all negative -Viral testing negative Hypertriglyceridemia, 240 Goals of care discussion patient wants to be a full code SCDs for DVT prophylaxis, lovenox Plan for today, s plan for today hold diuresis, will undergo coronary angiography, Attestations Medical Necessity Statement*: Patient requires hospitalization for systolic CHF exacerbation, diminished ejection fraction going under coronary angiography, persistent wheezing on chronic steroids, doxycycline, further Lasix dosing Diagnoses Acute exacerbation of CHF (congestive heart failure) I50.9 COPD (chronic obstructive pulmonary disease) J44.9 CHF (congestive heart failure) I50.9 Bloody stools K92.1 Diarrhea R19.7 Chest pain R07.9 Fatigue R53.83 Goals of care, counseling/discussion Z71.89 Obesity E66.9 NSTEMI (non-ST elevated myocardial infarction) I21.4 COPD exacerbation J44.1 Hypertriglyceridemia E78.1 Decreased cardiac ejection fraction R93.1 Systolic CHF I50.20
[2022-12-18] MEDS: enoxaparin 40 mg/0.4 mL Syringe SUBCUT (15:42)
[2022-12-18] MEDS: pantoprazole 40 mg SDV IVP (17:43)
--- NOTE | 2022-12-18 18:16 | PM.PN ---
Subjective Subjective: Patient is feeling better. Diuresing well. Vitals/I&O/Wt Last Vital Signs Temp 97.8 F 12/18/22 03:45 Pulse 94 12/18/22 16:00 Resp 21 H 12/18/22 16:00 BP 124/83 12/18/22 16:00 Pulse Ox 95 12/18/22 16:00 O2 Del Method Nasal Cannula 12/18/22 16:00 O2 Flow Rate 2 12/18/22 08:00 12/18/22 12/18/22 12/18/22 06:59 14:59 22:59 Intake Total 100 / 1258 360 / 360 480 / 840 Output Total 350 / 2780 825 / 825 275 / 1100 Balance -250 / -1522 -465 / -465 205 / -260 Physical Exam Narrative: GENERAL: Patient is alert, awake and oriented x3. [] NECK: No jugular vein distension. [] HEENT: No cyanosis. No icterus. No pallor. [] HEART: Regular S1 and S2. LUNGS: No crackles. Has wheezing. CENTRAL NERVOUS SYSTEM: Grossly nonfocal. [] EXTREMITIES: Lower extremities with 1+ edema bilaterally. Data 12/19/22 04:18 12/19/22 04:18 Micro: Microbiology 12/15/22 16:50 Stool Lactoferrin - Final Stool Occult Blood (FIT) - Final A&P Assessment and plan (1) Systolic CHF: (2) Decreased cardiac ejection fraction: (3) Obesity: (4) Acute exacerbation of CHF (congestive heart failure): (5) Depression: (6) Tobacco use disorder: Plan Because of [employer] Teacher equipment issue, coronary angiogram could not be performed today. We will continue diuresis. Plan for coronary angiogram tomorrow. Thank you for involving us with care of this patient. We will continue to follow. Please call with questions. Attestations Medical Necessity Statement*: Care expected to cross 2 midnights. Coding Level of Care Code Acute Code for [facility] Fwd Diagnoses Systolic CHF I50.20 Decreased cardiac ejection fraction R93.1 Obesity E66.9 Acute exacerbation of CHF (congestive heart failure) I50.9 Depression F32.A Tobacco use disorder F17.200
[2022-12-18] MEDS: quetiapine 300 mg Tablet 600 MG PO (19:30)
[2022-12-18] MEDS: atorvastatin 40 mg Tablet PO (19:31)
[2022-12-19] VITALS (15 sets, daily range): BP systolic 117–144; BP diastolic 79–95; PULSE 68–97; RESP 15–23; TEMP 36.9; O2SAT 91–98
[2022-12-19 05:06] LABS: Basophils % 0.2 %; Hematocrit 47.7 % (42.0-52.0); Hemoglobin 15.5 g/dL (11.7-16.6); Lymphocytes # 1.5 10^3/uL (0.8-4.8); Lymphocytes % 14.4 %; Mean Corpuscular HGB Conc 32.5 g/dL (30.0-36.0); Mean Corpuscular Hemoglobin 28.7 pg (28.0-34.0); Mean Corpuscular Volume 88.2 fl (80-94); Monocytes # 0.8 10^3/uL (0.2-0.9); Monocytes % 7.4 %; Neutrophils % 77.4 %; Nucleated Red Blood Cells % 0 %; Platelet Count 325 10^3/cmm (130-400); Red Blood Count 5.41 10^6/uL (4.1-5.3); Red Cell Distribution Width 14.3 % (12.1-15.1); White Blood Count 10.6 10^3/uL (4.0-10.0)
[2022-12-19] MEDS: aspirin 81 mg EC Tablet PO (05:19)
[2022-12-19] MEDS: tamsulosin 0.4 mg Capsule PO (05:19)
[2022-12-19 05:41] LABS: Anion Gap 15.8 (5-19); Blood Urea Nitrogen 23 mg/dL (6-20); Calcium 8.8 mg/dL (8.5-10.5); Carbon Dioxide 30 mmol/L (22-29); Chloride 92 mmol/L (98-107); Glomerular Filtration Rate 99.6 mL/min (90-130); Glucose 160 mg/dL (65-115); Magnesium 2.2 mg/dL (1.7-2.3); NT Pro B Type Natriuretic Pept 460 pg/mL (0-125); Osmolality Calculated 285 mOsm/kg (285-295); Potassium 3.8 mmol/L (3.5-5.1); Sodium 134 mmol/L (136-145)
--- NOTE | 2022-12-19 06:25 | XACV_ITS ---
Exam Room: [facility] Ht: 183 cm Wt: 115 kg BSA: 2.45 m2 Gender: Male : 1965 Exam Priority: Routine Procedure(s): Procedure Description: Diagnostic procedure Procedure Description: Left Heart Catheterization Procedure Description: Left ventriculography Procedure Description: Coronary Angiography Diagnostic Cath Status: Elective Diagnostic Findings * No disease noted in the Left Main, Left Anterior Descending, Right, or Circumflex coronary arteries. * Coronary angiography shows right dominance. PCI Status: Elective Conclusions 1. Nonischemic cardiomyopathy. 2. No disease noted in the Left Main, Left Anterior Descending, Right, or Circumflex coronary arteries. 3. Severe left ventricular systolic dysfunction. Ejection fraction of 25%. Recommendations * Aggressive guideline directed medical therapy for congestive heart failure. * Outpatient cardiology follow-up in 2 weeks. Interventional RX Recommendation: medical therapy and/or counseling Diagnostic RX Recommendation: medical therapy and/or counseling Anticoagulation: Heparin Ventriculography Ejection Fraction: 25.0 % Pressures Phase:Rest AO : 108 / 95 ( 102 ) @ 8:29:00 AM 142 / 98 ( 116 ) @ 8:36:00 AM 141 / 98 ( 115 ) @ 8:36:00 AM LV : 140 / 0 / 17 @ 8:35:00 AM 148 / 4 / 25 @ 8:36:00 AM 151 / 7 / 24 @ 8:36:00 AM Valves Phase:DefaultPhase AV : 4.0 @ 10:17:22 AM 4.0 @ 10:17:22 AM AV Mean Gradient: 19.0 @ 10:17:22 AM Clinical Evaluation EBL: 5mL-10mL Procedural Details Procedure Consent Obtained. Admit Source: In Patient. Pre-Procedure Time Out. Identified patient by full name and date of as verbalized by the patient/guarantor. Does the consent match the physician's order: Yes. Accurate & Complete Informed Consent: Yes. Inpatient/Outpatient History & Physical on Chart: Yes. If H&P is completed, is and addenduem needed: No; If yes, is the addendum complete: N/A. Visualize and Verify Site with Patient/Guarantor: N/A. Relevant Radiology Images available: N/A. The risks, benefits, and alternatives of sedation and/or procedure were discussed by physician. The patient agrees to continue. Procedure started. [facility] Clinical Fraility Score: 4: Vulnerable. Freelance Interpreter/Translator Indications: new onset CHF. Correct patient, site and procedure confirmed by cath team. PERRLA. Strong, equal hand color consultant bilaterally. Lungs clear x 5 lobes. IV Site on Arrival: 20 gauge in the left anticubital. IV Fluids: 0.9% NaCl at KVO. 0 mL infused prior to lab support technician. Pre Procedural Pulses: left radial was 2+. Pre Procedural Pulses: bilateral dorsalis pedis was 1+. Oxygen started at liters/min via nasal canula. right groin was prepped with chloroprep then draped in the usual sterile fashion. right radial was prepped with chloroprep then draped in the usual sterile fashion. Physician notified. Baseline sample Acquired. HR: 81 BPM. Physician arrived. Physician scrubbed in. Immediate Pre-Procedure Time Out. Correct Patient: Yes; Correct Procedure: Yes; Correct Site: Yes; Correct Patient Position: Yes; Correct Supplies: Yes; Dried Flammable Prep: Yes; Blood Products Available: Yes;. Lidocaine 1% infiltrated to the right radial. Arterial access obtained. A 5 kittitian TIG catheter in over wire. Multiple views taken of left coronary artery. Catheter redirected to the RCA. Multiple views taken of right coronary artery. Catheter out. A 5 kittitian Angled Pig catheter in over wire. EDP Sample taken: LV 140/0,17; HR: 75 BPM; SpO2: 90%. Aortogram performed in [place] @ 10 mL/second for a total of 30 mL. EDP Sample taken: LV 148/4,25; HR: 81 BPM; SpO2: 91%. Pullback taken: LV 151/7,24; AO 142/98(116); Mean: 19mmHg, Peak to Peak: 4mmHg, SEP: 8sec/min; HR: 77 BPM; SpO2: 88%. Catheter out. A TR Band was successful obtaining hemostatsis at the Right Radial artery insertion site. Post Procedure: Pulses reassessed and unchanged. PERRLA. Strong, equal hand color consultant bilaterally. No VTE prophylaxis required. Medication's Wasted: Lidocaine 1% = 1 mL. Medication's Wasted: Nitro = 49.8 mg. Medication's Wasted: Heparin = 1000 untis. Medication's Wasted: Other = fentanyl 100 mcg. Total IV fluids: 28 mL. Post-op diagnosis: non obstructive CAD, non ischmeic cardiomyopathy. Complications: none. Estimated blood loss: 5mL-10mL. Responsiveness - Normal response to verbal stimuli; alert and oriented, PERRLA. Airway - Unaffected, no intervention required; spontaneous ventilation. Circulation: W/N/L, pulses unchanged. Nausea/Vomiting: No. Procedure completed. Patient transferred by wheelchair to 1st floor. Vital chart was stopped. Access Site Site: Right Radial artery Sheath Size: 6 Fr Hemostasis Method: TR Band Hemostasis Success: Successful Procedure Medications Start: 7:23 AM Stop: 7:23 AM Medication: Versed Amount: 2 mg Route: I.V. Start: 7:27 AM Stop: 7:27 AM Medication: Nitrogylcerin Amount: 200 mcg Route: I.A. Start: 7:28 AM Stop: 7:28 AM Medication: Heparin Amount: 5000 units I, the attending physician, have reviewed and verified all procedure medications. Yes, all medications given per verbal order History/Risk Factors Hypertension: No Dyslipidemia: Yes Peripheral Arterial Disease (PAD): No Myocardial Infarction (PA): No Obesity: No Tobacco Use: Former Prior Interventions PCI: No CABG: No Valve Surgery: No Report Signatures Finalized by Alexis Adan MD on 12/22/2022 03:57 PM
--- NOTE | 2022-12-19 07:21 | PM.PN ---
Subjective Subjective: Patient is doing well. No chest pain. Coronary angiogram shows patent coronary arteries. LV systolic function is severely reduced. Vitals/I&O/Wt Last Vital Signs Temp 98.4 F 12/19/22 04:06 Pulse 72 12/19/22 05:53 Resp 16 12/19/22 04:06 BP 144/94 12/19/22 04:06 Pulse Ox 95 12/19/22 04:06 O2 Del Method Nasal Cannula 12/18/22 23:55 O2 Flow Rate 2 12/18/22 23:55 12/18/22 12/19/22 12/19/22 22:59 06:59 14:59 Intake Total 720 / 1180 100 / 1280 Output Total 525 / 1350 950 / 2300 Balance 195 / -170 -850 / -1020 Physical Exam Narrative: GENERAL: Patient is alert, awake and oriented x3. [] NECK: No jugular vein distension. [] HEENT: No cyanosis. No icterus. No pallor. [] HEART: Regular S1 and S2. LUNGS: No crackles. Has wheezing. CENTRAL NERVOUS SYSTEM: Grossly nonfocal. [] EXTREMITIES: Lower extremities with 1+ edema bilaterally. Data 12/19/22 04:18 12/19/22 04:18 Micro: Microbiology 12/15/22 16:50 C.difficile Toxin B Gene (PCR) - Final Stool 12/15/22 16:50 Stool Lactoferrin - Final Stool Occult Blood (FIT) - Final A&P Assessment and plan (1) Systolic CHF: (2) Decreased cardiac ejection fraction: (3) Obesity: (4) Acute exacerbation of CHF (congestive heart failure): (5) Depression: (6) Tobacco use disorder: Plan Coronary angiogram shows patent coronary arteries. He has nonischemic cardiomyopathy. We will uptitrate Coreg to 6.25 mg twice daily. We will also initiate losartan 25 mg daily. Uptitrate as outpatient as the blood pressure tolerates. Thank you for involving us with care of this patient. Patient is stable to be discharged from cardiology standpoint. Please call with questions. Attestations Medical Necessity Statement*: Care expected to cross 2 midnights. Coding Level of Care Code Acute Code for [facility] Fwd Diagnoses Systolic CHF I50.20 Decreased cardiac ejection fraction R93.1 Obesity E66.9 Acute exacerbation of CHF (congestive heart failure) I50.9 Depression F32.A Tobacco use disorder F17.200
--- NOTE | 2022-12-19 07:21 | W.PM.OPSUD ---
Surgery/Procedure H&P Update DATE OF PROCEDURE: December 19, 2022 DATE H&P PERFORMED: 12/17/22 H&P UPDATE INFORMATION: I have reviewed H&P completed within last 30 days, I have examined patient prior to procedure and No changes to prior documentation PREOP DIAGNOSIS: LV dysfucntion/chest pressure PRIMARY INDICATION FOR PROCEDURE: LV dysfucntion/chest pressure PLANNED PROCEDURE: Left heart cath with possible percutaneous coronary intervention PATIENT REASSESSED PRIOR TO SEDATION, WITH NO CHANGE NOTED: Yes PHYSICAL EXAM: alert, oriented x 3, clear to auscultation bilaterally and regular rate & rhythm AIRWAY EVAL/ANESTHESIA PLAN: normal airway, ASA III, Local Anesthesia, Risks, benefits & alternatives of sedation and/or procedure discussed and Patient agrees to continue as planned
--- NOTE | 2022-12-19 08:38 | PC.NURSE ---
Around 0820: Transfer orders received. TR Band to patients right wrist clean, dry, et intact. No drainage or hematoma noted. Vitals WDL. No c/o pain. Report given to MARIA E Stauffer. Patient transferred to CSU via wheelchair.
[2022-12-19] MEDS: losartan 50 mg Tablet 25 MG PO (10:33)
[2022-12-19] MEDS: carvedilol 6.25 mg Tablet PO (10:33)
[2022-12-19] MEDS: potassium chloride ER 20 mEq Tablet PO (10:33)
[2022-12-19] MEDS: gabapentin 400 mg Capsule 800 MG PO (10:34)
[2022-12-19] MEDS: dexamethasone 10 mg/mL INJ 6 MG IVP (10:34)
[2022-12-19] MEDS: doxycycline 100 MG in sodium chloride 0.9% (plus) 100 ML IV (10:35)
--- NOTE | 2022-12-19 11:06 | P.DS_ITS ---
Discharge Providers Date of Admission: 12/15/22 16:07 Date of Discharge: December 19, 2022 Attending Provider at Admission: Juanjose Cruz MD Attending Provider at Discharge: Juanjose Cruz MD Diagnoses at Discharge Discharge Diagnosis (1) Systolic CHF: Status: Acute (2) Decreased cardiac ejection fraction: Status: Acute (3) Obesity: Status: Acute (4) Acute exacerbation of CHF (congestive heart failure): Status: Acute (5) Depression: Status: Acute (6) Tobacco use disorder: Status: Acute Reason for Visit Reason for Visit: sob Hospital Course Hospital Course David Cortes is a 57 year old male with a medical history of methamphetamine abuse, cannabis abuse, history of tobacco use, depression, history of BPH, history of COPD, history of CHF, who presents to [facility] due to shortness of breath for the last few days, he reports orthopnea, paroxysmal nocturnal dyspnea, reports shortness of breath and chest pain, pain is anterior, nonradiating, no diaphoresis, no lightheadedness, dizziness, he also reports diffuse musculoskeletal pains at time, diarrhea at times, reported bloody stools, no lightheadedness, no dizziness, no nausea, no vomiting does report poor appetite, at times feels weak fatigued and tired does report chills Was admitted to the [facility] for acute systolic CHF exacerbation, diuresed over 5 L, clinically improved, discharged on Lasix 40 mg once daily with potassium replacement therapy with close follow-up with cardiology and primary care as outpatient For his COPD exacerbation, managed with steroids antibiotic therapy discharged on steroids doxycycline albuterol Advair Patient had complaints of chest pain on admission, echocardiogram showed EF of 30 to 35%, underwent coronary angiography no obstructive CAD, discharged with Coreg, losartan, on aspirin, statin, follow-up with cardiology as outpatient for discussion of LifeVest Physical Exam Const: COMMON NORMALS: no acute distress and patient oriented x3 Resp: COMMON NORMALS: normal respiratory effort, No retractions, No use of accessory muscles and clear to auscultation bilaterally AUSCULTATION: clear to auscultation bilaterally Cardio: COMMON NORMALS: regular rate, regular rhythm, S1 normal heart sound present and S2 normal heart sound present RATE: regular rate RHYTHM: regular rhythm HEART SOUNDS: S1 normal heart sound present and S2 normal heart sound present GI: COMMON NORMALS: Normal to inspection, nondistended, normoactive bowel sounds present and non-tender Extremity: COMMON NORMALS: no clubbing, cyanosis or edema and no pedal edema Neuro: COMMON NORMALS: patient oriented x3 Psych: COMMON NORMALS: mental status grossly normal Discharge Data Studies Completed and Pending Completed Studies During Hospitalization Category Date Time Status XR chest 1V portable [id number] Stat Exams 12/15/22 13:18 Completed CV. echo complete* [id number] Stat Ultrasound 12/15/22 16:02 Completed Pending at discharge Category Date Time Status [employer] request for service Routine Exams 12/19/22 06:25 Ordered Basic Metabolic Panel AM LABS Lab 12/20/22 04:00 Ordered Basic Metabolic Panel AM LABS Lab 12/21/22 04:00 Ordered Clostridioides Difficile PCR Routine Lab 12/15/22 16:50 Results Complete Blood Count w/Auto AM LABS Lab 12/20/22 04:00 Ordered Complete Blood Count w/Auto AM LABS Lab 12/21/22 04:00 Ordered Enteric Bacterial Panel by PCR Routine Lab 12/15/22 16:50 Results Enteric Parasite Panel by PCR Routine Lab 12/15/22 16:50 Results Magnesium AM LABS Lab 12/20/22 04:00 Ordered Magnesium AM LABS Lab 12/21/22 04:00 Ordered NT Pro B Type Natriuretic Pept QAM Lab 12/20/22 06:00 Ordered NT Pro B Type Natriuretic Pept QAM Lab 12/21/22 06:00 Ordered Radiology Impressions Chest X-Ray 12/15/22 13:18 IMPRESSION: 1. Pronounced cardiomegaly with elevated central venous pressure. 2. Interval development of right basilar effusion and adjacent lung consolidation. Laboratory Results WBC 10.6 10^3/uL (4.0-10.0) H 12/19/22 04:18 RBC 5.41 10^6/uL (4.1-5.3) H 12/19/22 04:18 Hgb 15.5 g/dL (11.7-16.6) 12/19/22 04:18 Hct 47.7 % (42.0-52.0) 12/19/22 04:18 MCV 88.2 fl (80-94) 12/19/22 04:18 MCH 28.7 pg (28.0-34.0) 12/19/22 04:18 MCHC 32.5 g/dL (30.0-36.0) 12/19/22 04:18 RDW 14.3 % (12.1-15.1) 12/19/22 04:18 Plt Count 325 10^3/cmm (130-400) 12/19/22 04:18 MPV 9.0 fL (7.4-10.4) 12/19/22 04:18 Neut % (Auto) 77.4 % 12/19/22 04:18 Lymph % (Auto) 14.4 % 12/19/22 04:18 [place] % (Auto) 7.4 % 12/19/22 04:18 Eos % (Auto) 0.0 % 12/19/22 04:18 Baso % (Auto) 0.2 % 12/19/22 04:18 Neut # (Auto) 8.20 10^3/uL (1.8-7.7) H 12/19/22 04:18 Lymph # (Auto) 1.5 10^3/uL (0.8-4.8) 12/19/22 04:18 [place] # (Auto) 0.8 10^3/uL (0.2-0.9) 12/19/22 04:18 Eos # (Auto) 0.0 10^3/uL (0.0-0.8) 12/19/22 04:18 Baso # (Auto) 0.0 10^3/uL (0.0-0.1) 12/19/22 04:18 Nucleated RBC % (auto) 0 % 12/19/22 04:18 Nucleated RBCs # 0.0 /100WBC 12/19/22 04:18 ESR 6 mm/hr (0-10) 12/15/22 13:34 Sodium 134 mmol/L (136-145) L 12/19/22 04:18 Potassium 3.8 mmol/L (3.5-5.1) 12/19/22 04:18 Chloride 92 mmol/L (98-107) L 12/19/22 04:18 Carbon Dioxide 30 mmol/L (22-29) H 12/19/22 04:18 Anion Gap 15.8 (5-19) 12/19/22 04:18 BUN 23 mg/dL (6-20) H 12/19/22 04:18 Creatinine 0.8 mg/dL (0.7-1.2) 12/19/22 04:18 GFR Calculation 99.6 mL/min (90-130) 12/19/22 04:18 Glucose 160 mg/dL (65-115) H 12/19/22 04:18 Estimat Average Glucose 140 12/15/22 13:34 Hemoglobin A1c 6.5 % (4.0-6.0) H 12/15/22 13:34 Calculated Osmolality 285 mOsm/kg (285-295) 12/19/22 04:18 Calcium 8.8 mg/dL (8.5-10.5) 12/19/22 04:18 Phosphorus 4.3 mg/dL (2.5-4.5) 12/18/22 04:32 Magnesium 2.2 mg/dL (1.7-2.3) 12/19/22 04:18 Total Bilirubin 0.2 mg/dL (0.15-1.2) 12/18/22 04:32 AST 7 U/L (0-40) 12/18/22 04:32 ALT 31 U/L (0-41) 12/18/22 04:32 Alkaline Phosphatase 100 U/L (40-130) 12/18/22 04:32 Troponin T Baseline 26 ng/L (0-15) H 12/15/22 13:34 Troponin T 120 Minute 24.63 ng/L (0-15) H 12/15/22 16:16 Delta Troponin T -1.37 ABS# (0-10) L 12/15/22 16:16 C-Reactive Protein 6.2 mg/L (0.0-4.9) H 12/15/22 13:34 NT-Pro-B Natriuret Pep 460 pg/mL (0-125) H 12/19/22 04:18 Total Protein 7.1 g/dL (6.6-8.7) 12/18/22 04:32 Albumin 4.2 g/dL (3.5-5.2) 12/18/22 04:32 Globulin 2.9 g/dL (1.3-4.6) 12/18/22 04:32 Triglycerides 284 mg/dL (0-150) H 12/15/22 13:34 Cholesterol 200 mg/dL (0-200) 12/15/22 13:34 LDL Cholesterol, Calc 91 mg/dL (50-129) 12/15/22 13:34 HDL Cholesterol 52 mg/dL (60-100) L 12/15/22 13:34 LDL/HDL Ratio 1.75 RATIO (0.00-3.22) 12/15/22 13:34 Cholesterol/HDL Ratio 3.85 mg/dL (1.0-5.00) 12/15/22 13:34 Procalcitonin 0.04 ng/mL (0-0.5) 12/15/22 13:34 TSH 0.96 uIU/mL (0.27-4.20) 12/15/22 13:34 Nasal Influ A H1 2009 PCR Not detected (NOT DETECT) 12/15/22 17:35 Urine Opiates Screen Negative ng/mL (Negative) 12/15/22 16:25 Ur Barbiturates Screen Negative ng/mL (Negative) 12/15/22 16:25 Ur Phencyclidine Scrn Negative ng/mL (Negative) 12/15/22 16:25 Ur Amphetamines Screen Negative ng/mL (Negative) 12/15/22 16:25 U Benzodiazepines Scrn Negative ng/mL (Negative) 12/15/22 16:25 Urine Cocaine Screen Negative ng/mL (Negative) 12/15/22 16:25 U Marijuana (THC) Screen Positive ng/mL (Negative) H 12/15/22 16:25 Ethyl Alcohol < 10 mg/dL (0-10) 12/15/22 16:16 Adenovirus (PCR) Not detected (NOT DETECT) 12/15/22 17:35 C. pneumoniae DNA (PCR) Not detected (NOT DETECT) 12/15/22 17:35 Coronavirus 229E (PCR) Not detected (NOT DETECT) 12/15/22 17:35 Hepatitis A IgM Ab Non-reactive (Nonreactive) 12/15/22 13:34 Hep Bs Antigen Non-reactive (Nonreactive) 12/15/22 13:34 Hep B Core IgM Ab Non-reactive (Nonreactive) 12/15/22 13:34 Hepatitis C Antibody Non-reactive (Nonreactive) 12/15/22 13:34 HIV 1&2 Ab & HIV 1 Ag Non-reactive (Non-Reactiv) 12/15/22 13:34 HIV 1&2 Antibody Non-reactive (Non-Reactiv) 12/15/22 13:34 Human Metapneumovir PCR Not detected (NOT DETECT) 12/15/22 17:35 Influenza A (H1) PCR Not detected (NOT DETECT) 12/15/22 17:35 Influenza A (H3) PCR Not detected (NOT DETECT) 12/15/22 17:35 Influenza Type A (PCR) Not detected (NOT DETECT) 12/15/22 17:35 Influenza Type B (PCR) Not detected (NOT DETECT) 12/15/22 17:35 M. pneumoniae (PCR) Not detected (NOT DETECT) 12/15/22 17:35 Parainfluenza 1 (PCR) Not detected (NOT DETECT) 12/15/22 17:35 Parainfluenza 2 (PCR) Not detected (NOT DETECT) 12/15/22 17:35 Parainfluenza 3 (PCR) Not detected (NOT DETECT) 12/15/22 17:35 Parainfluenza 4 (PCR) Not detected (NOT DETECT) 12/15/22 17:35 RSV Type A (PCR) Not detected (NOT DETECT) 12/15/22 17:35 RSV Type B (PCR) Not detected (NOT DETECT) 12/15/22 17:35 Entero/Rhino (PCR) Not detected (NOT DETECT) 12/15/22 17:35 SARS-CoV-2 (PCR) Not detected (NOT DETECT) 12/15/22 17:35 Vitals Last Vital Signs Temp 98.4 F 12/19/22 04:06 Pulse 71 12/19/22 10:52 Resp 21 H 12/19/22 10:52 BP 117/79 12/19/22 10:33 Pulse Ox 92 12/19/22 10:52 O2 Del Method Room Air 12/19/22 10:52 O2 Flow Rate 2 12/19/22 07:50 Discharge Plan Discharge Patient Disposition: Home Condition: Stable Prescriptions: New (DME) glucometer testing kit See Rx Instructions .Route .MEDSUPPLY Qty: 1 0RF Rx Instructions: Glucometer testing kit Lancets, 100 Strips 100 potassium chloride [Klor-Con M20] 20 mEq Tablet,Er Particles/Crystals 20 meq PO DAILY 30 Days Qty: 30 0RF carvedilol 6.25 mg Tablet 6.25 mg PO BID 30 Days Qty: 60 0RF furosemide [Lasix] 40 mg tablet 40 mg PO DAILY 30 Days Qty: 30 0RF fluticasone propion-salmeterol [Advair Diskus] 100-50 mcg/dose blister with device 1 inh inhalation BID Qty: 60 0RF metformin 500 mg tablet 500 mg PO BID 30 Days Qty: 60 0RF atorvastatin 40 mg Tablet 40 mg PO BEDTIME 30 Days Qty: 30 0RF losartan 50 mg Tablet 25 mg PO DAILY 30 Days Qty: 30 0RF doxycycline hyclate 100 mg tablet 100 mg PO BID 5 Days Qty: 10 0RF prednisone 20 mg tablet 20 mg PO BID 5 Days Qty: 10 0RF Continued multivitamin Tablet 1 tab PO DAILY Triple Antibiotic 3.5mg-400 unit- 5,000 unit/gram ointment 1 applic topical BID PRN (Reason: unknown) [place] Low Dose Aspirin 81 mg tablet,delayed release (DR/EC) 81 mg PO QAM tamsulosin 0.4 mg capsule 0.4 mg PO QAM ascorbic acid (vitamin C) [Vitamin C] 500 mg tablet 500 mg PO DAILY 30 Days Qty: 30 1RF albuterol sulfate 90 mcg/actuation HFA aerosol inhaler 2 inh inhalation Q4H PRN (Reason: shortness of breath or wheezing) Qty: 8.5 0RF gabapentin 800 mg tablet 800 mg PO TID 30 Days Qty: 90 1RF quetiapine [Seroquel] 400 mg tablet 800 mg PO BEDTIME 30 Days Qty: 60 1RF Discharge Orders: Discharge Order (Routine); Ordered 12/19/22 Ordered By: Juanjose Cruz Referrals: Valentina Zabala FNP [Referring] - (You will need to call Valentina Zabala's Office to schedule a follow up appointment. Call [phone]. Thank you. ) Cordelia Bolden FNP [Nurse Practitioner] - 12/26/22 1:15 pm Discharge Diet: Cardiac Discharge Activity: Resume usual activity Patient Instructions: Furosemide (By mouth) (Lasix), Doxycycline (By mouth) (Acticlate, Adoxa, Avidoxy, Monodox, Doryx), Prednisone (By mouth) (predniSONE Intensol, Prednicot, Deltasone, Mahnaz), Potassium Chloride (By mouth) (K-Dur, K- Vicki, K-Tab, Yasmany Mur), Losartan (By mouth) (Cozaar), Fluticasone (By breathing) (Arnuity Ellipta, Flovent Diskus,..., Atorvastatin (By mouth) (Lipitor), Carvedilol (By mouth) (Coreg, Coreg CR, Hypertenevide-12.5), Heart Catheterization (DC), CHF Stoplight, Opioid Safety, Post Angiogram Home Care Instructions, Post Heart Attack Stoplight Activity Restrictions/Additional Instructions: - Stop smoking -For your heart failure take Lasix, potassium as prescribed -Limit fluid intake to 1.5 L a day -If you have any chest pain or palpitations go to the emergency room -See your primary care provider in 1 week Discharge Attestations Time Spent in Discharge Care*: greater than 30 min Quality Metrics Clinical Quality Measures [ No reported AMI, CVA or VTE this stay] Coding Level of Care Code 66294 Total time (in minutes) for Discharge: 40 Diagnoses Systolic CHF I50.20 Decreased cardiac ejection fraction R93.1 Obesity E66.9 Acute exacerbation of CHF (congestive heart failure) I50.9 Depression F32.A Tobacco use disorder F17.200
--- NOTE | 2022-12-19 12:29 | PC.NURSE ---
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 2ml's of air is removed at 0925. 2ml's of air is removed at 0945. 2ml's of air is removed at 1015. 2ml's of air is removed at 1030. 2ml's of air is removed at 1052. 2ml's of air is removed at 1120. TR-band is removed at 1140. A dressing of 2x2 and tegaderm is applied.
== END 2022-12-19 14:36 | disposition home or self-care (01) | DRG 286 ==
LOC: ER 15:31 → CSU 16:07
PROVIDERS: Internal Medicine; Admitting Provider Family Medicine; Emergency Provider Family Medicine; Visit Provider Family Medicine
PROC: 4A023N7 Measurement of Cardiac Sampling and Pressure, Left Heart, Percutaneous Approach (ICD-10-PCS; principal; 2022-12-19 07:50)
DX: I11.0 Hypertensive heart disease with heart failure (principal); I50.23 Acute on chronic systolic (congestive) heart failure; J44.1 Chronic obstructive pulmonary disease with (acute) exacerbation; Z87.891 Personal history of nicotine dependence; F15.10 Other stimulant abuse, uncomplicated; F12.10 Cannabis abuse, uncomplicated; F32.A Depression, unspecified; N40.0 Benign prostatic hyperplasia without lower urinary tract symptoms; E66.9 Obesity, unspecified; Z68.34 Body mass index [BMI] 34.0-34.9, adult; E78.1 Pure hyperglyceridemia; I42.8 Other cardiomyopathies; R19.7 Diarrhea, unspecified; R19.5 Other fecal abnormalities
CPT/HCPCS: 36415; 71045; 80048; 80053; 80061; 80074; 80306; 80307; 82274; 83036; 83630; 83735; 83880; 84100; 84145; 84443; 84484; 85025; 85651; 86140; 87486; 87493; 87506; 87581; 87633; 87806; 93005; 93306; 93458; 94640; 94664; 94760; 96365; 96372; 96374; 96375; 96376; 99152; 99285; C1769; C1887; C1894; C9113; J1100; J1644; J1650; J1940; J2250; J2270; J3010; J3490; J7030; Q9967

== ENCOUNTER 2023-01-03 13:29 | Emergency (ER) | payer MEDICAID, SELFPAY ==
[2023-01-03 13:34] VITALS: BP 154/85; PULSE 107; RESP 18; TEMP 36.3; O2SAT 95; BMI 30.5
--- NOTE | 2023-01-03 13:34 | XRR_ITS ---
PROCEDURE INFORMATION: Exam: XR Chest Exam date and time: 01/03/2023 1:47 PM Age: 57 years old Clinical indication: Dyspnea TECHNIQUE: Imaging protocol: Radiologic exam of the chest. Views: 1 view. COMPARISON: CR (CHEST, ) 12/15/2022 1:57 PM FINDINGS: Lungs: Right lower lobe atelectasis versus minimal infiltrate. Pleural spaces: Unremarkable. No pleural effusion. No pneumothorax. Heart/Mediastinum: Cardiomegaly. Bones/joints: Unremarkable. XR/XR chest 1V portable [id number] IMPRESSION: 1. Cardiomegaly. 2. Right lower lobe atelectasis versus minimal infiltrate.
--- NOTE | 2023-01-03 13:34 | ECG_ITS ---
[facility] Test Date: 2023-01-03 Pat Name: David Cortes Department: Room: Gender: Male Manager Nuclear: : 1965 Requested By: Silvio Chavis Order Number: [id number] Mahesh MD: Alexis Adan M.D. Measurements Intervals [place] Rate: 100 P: 44 PA: 171 QRS: 33 QRSD: 98 T: 46 QT: 360 QTc: 464 Interpretive Statements SINUS TACHYCARDIA POSSIBLE LEFT ATRIAL ENLARGEMENT [-0.1mV P-WAVE IN V1/V2] Compared to ECG 12/16/2022 14:29:42 Sinus rhythm no longer present Electronically Signed On 01-03-2023 14:03:14 CDT by Alexis Adan M.D. [id number]
[2023-01-03 14:05] VITALS: PULSE 101; RESP 18; O2SAT 95
--- NOTE | 2023-01-03 14:14 | W.ED.SOB ---
HPI - SOB/Dyspnea General: Chief Complaint: Shortness of Breath/Dyspnea Stated Complaint: SOB Time Seen by Provider: 01/03/23 13:34 History of Present Illness: HPI Narrative: Presents to the ER with complaints of shortness of breath. Patient says shortness of breath is worse this morning always talking complete sentences and his O2 saturation on room air is really good. Patient says all he needs a breathing treatment and 2 medicines refilled he says he is out of his gabapentin and also needs his Seroquel refilled. Patient says he has a ointment with his primary care which is a new primary care in approximately 1 week he is talked with about getting off the medicine. Review of Systems General: Reports: 10 or more systems reviewed and unremarkable except in HPI and below PFSH ED PFSH: Medical History Asthma Cannabis dependence, uncomplicated CHF (congestive heart failure) COPD (chronic obstructive pulmonary disease) Homeless single person On combination antipsychotic drug therapy Psychiatric care Suicidal ideation Surgical History Status post club foot correction at Family History Mother Psychiatric illness Schizophrenia Social History Smoking and tobacco status: former smoker Smoking risk assessment/counseling performed?: Yes Tobacco counseling given: counseling >3 minutes Alcohol intake: never Household members: other Details: roommate x 1 Physical Exam Const: COMMON NORMALS: no acute distress, average body habitus, patient oriented x3, no limitations, healthy appearing, alert and well nourished HENMT: COMMON NORMALS: normocephalic, atraumatic, hearing grossly normal bilaterally, external ears normal, Normal external nose present and moist oral mucous membranes HEAD & SCALP: normocephalic and atraumatic NOSE: Normal external nose present EXTERNAL EAR: Yes external ears normal Neck/C-Spine: COMMON NORMALS: full ROM, no lymphadenopathy, supple, no meningeal signs, no JVD, Thyroid normal and No carotid bruits THYROID: Thyroid normal Chest: COMMONS NORMALS: normal inspection of the chest and normal palpation of entire chest wall Resp: COMMON NORMALS: normal respiratory effort, No retractions, No use of accessory muscles and clear to auscultation bilaterally AUSCULTATION: clear to auscultation bilaterally Cardio: COMMON NORMALS: no JVD, regular rate, regular rhythm, S1 normal heart sound present, S2 normal heart sound present, No gallops present (Cardio), No clicks present (Cardio), No murmurs present (Cardio) and No rub (Cardio) RATE: regular rate RHYTHM: regular rhythm HEART SOUNDS: S1 normal heart sound present and S2 normal heart sound present GI: COMMON NORMALS: Normal to inspection, nondistended, normoactive bowel sounds present, Soft to palpation, non-tender, No hepatosplenomegaly present and no masses PALPATION: Yes Soft to palpation and Yes No hepatosplenomegaly present Neuro: COMMON NORMALS: patient oriented x3 SENSORIUM/ORIENTATION: Yes alert MENINGEAL SIGNS: Yes no meningeal signs Course Vital Signs: Vital signs: Vital Signs Temperature 97.4 F L 01/03/23 13:34 Pulse Rate 99 01/03/23 14:33 Respiratory Rate 16 01/03/23 14:33 Blood Pressure 154/85 01/03/23 13:34 Pulse Oximetry 95 01/03/23 14:33 Oxygen Delivery Me thod Nasal Cannula 01/03/23 14:33 Oxygen Flow Rate 2 01/03/23 14:33 MDM - SOB/Dyspnea Medical Decision Making Patient presents to the ER with complaints of shortness of breath. Patient was given a DuoNeb breathing treatment now feels much better. Patient also states he needed his prescription for his Seroquel and his gabapentin filled today. Patient does have a follow-up supposedly with his primary care doc within the next 1 week for to see a new doctor. Will be discharged home to keep his appointment for the new doctor. Differential Diagnosis Likely acute exacerbation of chronic obstructive airways disease; Unlikely congestive heart failure, community acquired pneumonia, asthma with exacerbation or pulmonary embolism Medical Records I reviewed the patient's medical records. Lab Data I reviewed the patient's lab results. 01/03/23 14:28 01/03/23 14:28 Labs/Radiology: Laboratory Results WBC 7.4 10^3/uL (4.0-10.0) 01/03/23 14:28 Corrected WBC Cancelled 01/03/23 14:04 RBC 4.93 10^6/uL (4.1-5.3) 01/03/23 14:28 Hgb 14.2 g/dL (11.7-16.6) 01/03/23 14:28 Hct 44.6 % (42.0-52.0) 01/03/23 14:28 MCV 90.5 fl (80-94) 01/03/23 14:28 MCH 28.8 pg (28.0-34.0) 01/03/23 14:28 MCHC 31.8 g/dL (30.0-36.0) 01/03/23 14:28 RDW 15.2 % (12.1-15.1) H 01/03/23 14:28 Plt Count 341 10^3/cmm (130-400) 01/03/23 14:28 MPV 8.9 fL (7.4-10.4) 01/03/23 14:28 Gran % Cancelled 01/03/23 14:04 Neut % (Auto) 68.1 % 01/03/23 14:28 Lymph % (Auto) 20.8 % 01/03/23 14:28 [place] % (Auto) 8.5 % 01/03/23 14:28 Eos % (Auto) 1.5 % 01/03/23 14:28 Baso % (Auto) 0.7 % 01/03/23 14:28 Neut # (Auto) 5.04 10^3/uL (1.8-7.7) 01/03/23 14:28 Lymph # (Auto) 1.5 10^3/uL (0.8-4.8) 01/03/23 14:28 [place] # (Auto) 0.6 10^3/uL (0.2-0.9) 01/03/23 14:28 Eos # (Auto) 0.1 10^3/uL (0.0-0.8) 01/03/23 14:28 Baso # (Auto) 0.1 10^3/uL (0.0-0.1) 01/03/23 14:28 Absolute Gran (auto) Cancelled 01/03/23 14:04 Nucleated RBC % (auto) 0 % 01/03/23 14:28 Nucleated RBCs # 0.0 /100WBC 01/03/23 14:28 Sodium 138 mmol/L (136-145) 01/03/23 14:28 Potassium 4.2 mmol/L (3.5-5.1) 01/03/23 14:28 Chloride 101 mmol/L (98-107) 01/03/23 14:28 Carbon Dioxide 27 mmol/L (22-29) 01/03/23 14:28 Anion Gap 14.2 (5-19) 01/03/23 14:28 BUN 17 mg/dL (6-20) 01/03/23 14:28 Creatinine 1.0 mg/dL (0.7-1.2) 01/03/23 14:28 GFR Calculation Cancelled 01/03/23 14:04 Glucose Cancelled 01/03/23 14:04 Calculated Osmolality 289 mOsm/kg (285-295) 01/03/23 14:28 Calcium 8.9 mg/dL (8.5-10.5) 01/03/23 14:28 Total Bilirubin 0.2 mg/dL (0.15-1.2) 01/03/23 14:28 AST 14 U/L (0-40) 01/03/23 14:28 ALT 38 U/L (0-41) 01/03/23 14:28 Alkaline Phosphatase 103 U/L (40-130) 01/03/23 14:28 Troponin T Baseline 29 ng/L (0-15) H 01/03/23 14:28 NT-Pro-B Natriuret Pep Cancelled 01/03/23 14:04 Total Protein 7.1 g/dL (6.6-8.7) 01/03/23 14:28 Albumin 4.3 g/dL (3.5-5.2) 01/03/23 14:28 Globulin 2.8 g/dL (1.3-4.6) 01/03/23 14:28 EKG Data EKG 1: I personally reviewed and interpreted this EKG as follows: EKG Interpretation Date: 01/03/23 EKG interpretation time: 14:01 Prior EKG tracings: not available for review Interpretation: EKG showed sinus tachycardia with ventricular rate of 100 bpm, ME interval 171, QRS duration 98, QTc of 417, possible left atrial lodgment, no ST-T wave changes Discharge Plan Discharge Patient Disposition: Home Clinical Impression: Breath shortness, Medication refill Condition: Stable Prescriptions: New quetiapine [Seroquel] 400 mg tablet 800 mg PO .qhs Qty: 14 0RF gabapentin 800 mg tablet 800 mg PO TID Qty: 30 0RF No Action multivitamin Tablet 1 tab PO DAILY Triple Antibiotic 3.5mg-400 unit- 5,000 unit/gram ointment 1 applic topical BID PRN (Reason: unknown) [place] Low Dose Aspirin 81 mg tablet,delayed release (DR/EC) 81 mg PO QAM tamsulosin 0.4 mg capsule 0.4 mg PO QAM losartan 50 mg Tablet 25 mg PO DAILY 30 Days Qty: 30 0RF atorvastatin 40 mg Tablet 40 mg PO BEDTIME 30 Days Qty: 30 0RF carvedilol 6.25 mg Tablet 6.25 mg PO BID 30 Days Qty: 60 0RF Klor-Con M20 20 mEq Tablet,Er Particles/Crystals 20 meq PO DAILY 30 Days Qty: 30 0RF Lasix 40 mg tablet 40 mg PO DAILY 30 Days Qty: 30 0RF Advair Diskus 100-50 mcg/dose blister with device 1 inh inhalation BID Qty: 60 0RF metformin 500 mg tablet 500 mg PO BID 30 Days Qty: 60 0RF (DME) glucometer testing kit See Rx Instructions .Route .MEDSUPPLY Qty: 1 0RF Rx Instructions: Glucometer testing kit Lancets, 100 Strips 100 ascorbic acid (vitamin C) [Vitamin C] 500 mg tablet 500 mg PO DAILY 30 Days Qty: 30 1RF albuterol sulfate 90 mcg/actuation HFA aerosol inhaler 2 inh inhalation Q4H PRN (Reason: shortness of breath or wheezing) Qty: 8.5 0RF gabapentin 800 mg tablet 800 mg PO TID 30 Days Qty: 90 1RF quetiapine [Seroquel] 400 mg tablet 800 mg PO BEDTIME 30 Days Qty: 60 1RF Discharge Orders: Discharge ED (Routine); Ordered 01/03/23 Ordered By: Silvio Chavis Patient Instructions: Medicine Refill (ED), Shortness of Breath (ED) Activity Restrictions/Additional Instructions: Please keep your appointment already scheduled with your new primary care physician next week for further refills and evaluation and treatment. Coding Level of Care Code ED Consulting Technical Director for Panchito Cooper
[2023-01-03] MEDS: ipratropium-albuterol 3 mL Neb INHALATION (14:31)
[2023-01-03 14:33] VITALS: PULSE 99; RESP 16; O2SAT 95
[2023-01-03 14:53] LABS: Troponin(5th) Baseline 29 ng/L (0-15)
[2023-01-03 14:59] LABS: Basophils # 0.1 10^3/uL (0.0-0.1); Basophils % 0.7 %; Eosinophils # 0.1 10^3/uL (0.0-0.8); Eosinophils % 1.5 %; Hematocrit 44.6 % (42.0-52.0); Hemoglobin 14.2 g/dL (11.7-16.6); Lymphocytes # 1.5 10^3/uL (0.8-4.8); Lymphocytes % 20.8 %; Mean Corpuscular HGB Conc 31.8 g/dL (30.0-36.0); Mean Corpuscular Hemoglobin 28.8 pg (28.0-34.0); Mean Corpuscular Volume 90.5 fl (80-94); Mean Platelet Volume 8.9 fL (7.4-10.4); Monocytes # 0.6 10^3/uL (0.2-0.9); Monocytes % 8.5 %; Neutrophils # 5.04 10^3/uL (1.8-7.7); Neutrophils % 68.1 %; Nucleated Red Blood Cells % 0 %; Platelet Count 341 10^3/cmm (130-400); Red Blood Count 4.93 10^6/uL (4.1-5.3); Red Cell Distribution Width 15.2 % (12.1-15.1); White Blood Count 7.4 10^3/uL (4.0-10.0)
[2023-01-03 15:00] LABS: Alanine Aminotransferase 38 U/L (0-41); Albumin Level 4.3 g/dL (3.5-5.2); Alkaline Phosphatase 103 U/L (40-130); Anion Gap 14.2 (5-19); Aspartate Amino Transferase 14 U/L (0-40); Blood Urea Nitrogen 17 mg/dL (6-20); Calcium 8.9 mg/dL (8.5-10.5); Carbon Dioxide 27 mmol/L (22-29); Chloride 101 mmol/L (98-107); Globulin 2.8 g/dL (1.3-4.6); Glucose 117 mg/dL (65-115); NT Pro B Type Natriuretic Pept 1713 pg/mL (0-125); Osmolality Calculated 289 mOsm/kg (285-295); Potassium 4.2 mmol/L (3.5-5.1); Sodium 138 mmol/L (136-145); Total Bilirubin 0.2 mg/dL (0.15-1.2); Total Protein 7.1 g/dL (6.6-8.7)
[2023-01-03 15:17] VITALS: PULSE 99; RESP 20; O2SAT 91
== END 2023-01-03 15:19 | disposition home or self-care (01) ==
PROVIDERS: Emergency Provider Emergency Medicine
DX: R06.02 Shortness of breath (principal); Z76.0 Encounter for issue of repeat prescription; R00.0 Tachycardia, unspecified
CPT/HCPCS: 71045; 80053; 83880; 84484; 85025; 93005; 94640; 99285

== ENCOUNTER 2023-01-09 17:44 | Emergency (ER) | payer MEDICAID, SELFPAY ==
[2023-01-09 17:55] VITALS: BP 137/72; PULSE 90; RESP 18; TEMP 36.3; O2SAT 98; BMI 30.5
--- NOTE | 2023-01-09 18:12 | XRR_ITS ---
PROCEDURE INFORMATION: Exam: XR Chest Exam date and time: 01/09/2023 5:19 PM Age: 57 years old Clinical indication: Shortness of breath; Additional info: SOB TECHNIQUE: Imaging protocol: Radiologic exam of the chest. Views: 1 view. COMPARISON: CR (CHEST, ) 01/03/2023 1:47 PM FINDINGS: Lungs: Unremarkable. No consolidation. Pleural spaces: Unremarkable. No pleural effusion. No pneumothorax. Heart/Mediastinum: Similar mild cardiomegaly. Bones/joints: Unremarkable. XR/XR chest 1V portable [id number] IMPRESSION: No acute findings.
[2023-01-09 18:29] LABS: Basophils # 0.1 10^3/uL (0.0-0.1); Basophils % 0.8 %; Eosinophils # 0.2 10^3/uL (0.0-0.8); Eosinophils % 2.5 %; Hemoglobin 13.4 g/dL (11.7-16.6); Lymphocytes # 1.6 10^3/uL (0.8-4.8); Lymphocytes % 24.2 %; Mean Corpuscular HGB Conc 31.2 g/dL (30.0-36.0); Mean Corpuscular Hemoglobin 28.9 pg (28.0-34.0); Mean Corpuscular Volume 92.7 fl (80-94); Mean Platelet Volume 8.8 fL (7.4-10.4); Monocytes # 0.6 10^3/uL (0.2-0.9); Neutrophils # 4.06 10^3/uL (1.8-7.7); Nucleated Red Blood Cells % 0 %; Platelet Count 328 10^3/cmm (130-400); Red Blood Count 4.64 10^6/uL (4.1-5.3); White Blood Count 6.4 10^3/uL (4.0-10.0)
[2023-01-09 18:42] LABS: Alanine Aminotransferase 38 U/L (0-41); Alkaline Phosphatase 99 U/L (40-130); Anion Gap 13.3 (5-19); Aspartate Amino Transferase 20 U/L (0-40); Blood Urea Nitrogen 15 mg/dL (6-20); Calcium 8.1 mg/dL (8.5-10.5); Carbon Dioxide 24 mmol/L (22-29); Chloride 102 mmol/L (98-107); Globulin 2.6 g/dL (1.3-4.6); Glucose 101 mg/dL (65-115); Osmolality Calculated 281 mOsm/kg (285-295); Potassium 4.3 mmol/L (3.5-5.1); Sodium 135 mmol/L (136-145); Total Bilirubin 0.2 mg/dL (0.15-1.2); Total Protein 6.6 g/dL (6.6-8.7)
--- NOTE | 2023-01-09 19:01 | ECG_ITS ---
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 Measurements Intervals [place] Rate: 86 P: 47 IN: 160 QRS: 3 QRSD: 107 T: 77 QT: 385 QTc: 463 Interpretive Statements SINUS RHYTHM POSSIBLE LEFT ATRIAL ENLARGEMENT [-0.1mV P-WAVE IN V1/V2] NONSPECIFIC T-WAVE ABNORMALITY Compared to ECG 01/03/2023 14:01:00 T-wave abnormality now present Sinus tachycardia no longer present Electronically Signed On 01-09-2023 19:23:09 CDT by Joycelyn Yang M.D. [id number]
--- NOTE | 2023-01-09 19:17 | ED_ITS ---
HPI - SOB/Dyspnea General: Chief Complaint: Shortness of Breath/Dyspnea Stated Complaint: sob Time Seen by Provider: 01/09/23 18:13 History of Present Illness: HPI Narrative: Patient presents to the ER with complaints of shortness of breath. Patient thinks he was bitten by a spider 2 times on his right forearm last night and has been having shortness of breath ever since then. Patient also states he is on 800 mg of Seroquel and this is too much as he is very drowsy the entire day. Patient would like to be admitted to the psych unit so that way they can wean him off the Seroquel. Review of Systems General: Reports: 10 or more systems reviewed and unremarkable except in HPI and below PFSH ED PFSH: Medical History Asthma Cannabis dependence, uncomplicated CHF (congestive heart failure) COPD (chronic obstructive pulmonary disease) Homeless single person On combination antipsychotic drug therapy Psychiatric care Suicidal ideation Surgical History Status post club foot correction at Family History Mother Psychiatric illness Schizophrenia Social History Smoking and tobacco status: former smoker Smoking risk assessment/counseling performed?: Yes Tobacco counseling given: counseling >3 minutes Alcohol intake: never Household members: other Details: roommate x 1 Physical Exam Const: COMMON NORMALS: no acute distress, average body habitus, patient oriented x3, no limitations, healthy appearing, alert and well nourished HENMT: COMMON NORMALS: normocephalic, atraumatic, hearing grossly normal bilaterally, external ears normal, Normal external nose present and moist oral mucous membranes HEAD & SCALP: normocephalic and atraumatic NOSE: Normal external nose present EXTERNAL EAR: Yes external ears normal Eye: COMMON NORMALS: Equal, round and reactive pupils present, EOMs intact bilaterally, conjunctivae normal and no scleral icterus CONJUNCTIVA: Yes conjunctivae normal PUPIL: Yes Equal, round and reactive pupils present Neck/C-Spine: COMMON NORMALS: full ROM, no lymphadenopathy, supple, no meningeal signs, no JVD and Thyroid normal THYROID: Thyroid normal Chest: COMMONS NORMALS: normal inspection of the chest and normal palpation of entire chest wall Resp: COMMON NORMALS: normal respiratory effort, No retractions, No use of accessory muscles and clear to auscultation bilaterally AUSCULTATION: clear to auscultation bilaterally Cardio: COMMON NORMALS: no JVD, regular rate, regular rhythm, S1 normal heart sound present, S2 normal heart sound present, No gallops present (Cardio), No clicks present (Cardio), No murmurs present (Cardio) and No rub (Cardio) RATE: regular rate RHYTHM: regular rhythm HEART SOUNDS: S1 normal heart sound present and S2 normal heart sound present GI: COMMON NORMALS: Normal to inspection, nondistended, normoactive bowel sounds present, Soft to palpation, non-tender, No hepatosplenomegaly present and no masses PALPATION: Yes Soft to palpation and Yes No hepatosplenomegaly present : COMMON NORMALS: Yes no CVA tenderness BLADDER/KIDNEY EXAM: Yes no CVA tenderness Back/Pelvis: COMMON NORMALS: no CVA tenderness Neuro: COMMON NORMALS: patient oriented x3 SENSORIUM/ORIENTATION: Yes alert MENINGEAL SIGNS: Yes no meningeal signs Skin: NARRATIVE SKIN EXAM: Patient kept pointing to 2 circular scabbed over areas noted on right forearm there is no redness no swelling no erythema no streaking. Course Vital Signs: Vital signs: Vital Signs Temperature 97.4 F L 01/09/23 17:55 Pulse Rate 90 01/09/23 17:55 Respiratory Rate 18 01/09/23 17:55 Blood Pressure 137/72 01/09/23 17:55 Pulse Oximetry 98 01/09/23 17:55 Oxygen Delivery Me thod Room Air 01/09/23 17:55 MDM - SOB/Dyspnea Medical Decision Making Spider bitePatient presents to the ER with complaints of shortness of breath to his right forearm. Lab work was obtained as well as chest x-ray and EKG all of which was benign. Patient's O2 sat is 98% on room air. Patient states he is on too much Seroquel and needs to wean down. Patient will be told to break his Seroquel in half and follow-up with his family practice doctor. Patient be discharged home. Medical Records I reviewed the patient's medical records. Lab Data I reviewed the patient's lab results. 01/09/23 18:13 01/09/23 18:13 Labs/Radiology: Radiology Impressions Chest X-Ray 01/09/23 18:12 IMPRESSION: No acute findings. Laboratory Results WBC 6.4 10^3/uL (4.0-10.0) 01/09/23 18:13 RBC 4.64 10^6/uL (4.1-5.3) 01/09/23 18:13 Hgb 13.4 g/dL (11.7-16.6) 01/09/23 18:13 Hct 43.0 % (42.0-52.0) 01/09/23 18:13 MCV 92.7 fl (80-94) 01/09/23 18:13 MCH 28.9 pg (28.0-34.0) 01/09/23 18:13 MCHC 31.2 g/dL (30.0-36.0) 01/09/23 18:13 RDW 15.0 % (12.1-15.1) 01/09/23 18:13 Plt Count 328 10^3/cmm (130-400) 01/09/23 18:13 MPV 8.8 fL (7.4-10.4) 01/09/23 18:13 Neut % (Auto) 63.0 % 01/09/23 18:13 Lymph % (Auto) 24.2 % 01/09/23 18:13 Waldo % (Auto) 9.0 % 01/09/23 18:13 Eos % (Auto) 2.5 % 01/09/23 18:13 Baso % (Auto) 0.8 % 01/09/23 18:13 Neut # (Auto) 4.06 10^3/uL (1.8-7.7) 01/09/23 18:13 Lymph # (Auto) 1.6 10^3/uL (0.8-4.8) 01/09/23 18:13 Waldo # (Auto) 0.6 10^3/uL (0.2-0.9) 01/09/23 18:13 Eos # (Auto) 0.2 10^3/uL (0.0-0.8) 01/09/23 18:13 Baso # (Auto) 0.1 10^3/uL (0.0-0.1) 01/09/23 18:13 Nucleated RBC % (auto) 0 % 01/09/23 18:13 Nucleated RBCs # 0.0 /100WBC 01/09/23 18:13 Sodium 135 mmol/L (136-145) L 01/09/23 18:13 Potassium 4.3 mmol/L (3.5-5.1) 01/09/23 18:13 Chloride 102 mmol/L (98-107) 01/09/23 18:13 Carbon Dioxide 24 mmol/L (22-29) 01/09/23 18:13 Anion Gap 13.3 (5-19) 01/09/23 18:13 BUN 15 mg/dL (6-20) 01/09/23 18:13 Creatinine 0.9 mg/dL (0.7-1.2) 01/09/23 18:13 GFR Calculation 87.0 mL/min (90-130) L 01/09/23 18:13 Glucose 101 mg/dL (65-115) 01/09/23 18:13 Calculated Osmolality 281 mOsm/kg (285-295) L 01/09/23 18:13 Calcium 8.1 mg/dL (8.5-10.5) L 01/09/23 18:13 Total Bilirubin 0.2 mg/dL (0.15-1.2) 01/09/23 18:13 AST 20 U/L (0-40) 01/09/23 18:13 ALT 38 U/L (0-41) 01/09/23 18:13 Alkaline Phosphatase 99 U/L (40-130) 01/09/23 18:13 Total Protein 6.6 g/dL (6.6-8.7) 01/09/23 18:13 Albumin 4.0 g/dL (3.5-5.2) 01/09/23 18:13 Globulin 2.6 g/dL (1.3-4.6) 01/09/23 18:13 EKG Data EKG 1: I personally reviewed and interpreted this EKG as follows: EKG Interpretation Date: 01/09/23 EKG interpretation time: 19:01 Prior EKG tracings: not available for review Interpretation: Ventricular rate is 86 bpm, MS interval is 160, QRS duration is 107, QTc of 429, and sinus rhythm, possible left atrial lodgment, nonspecific T wave abnormality, Discharge Plan Discharge Patient Disposition: Home Clinical Impression: Shortness of breath, Drowsiness Condition: Stable Prescriptions: No Action multivitamin Tablet 1 tab PO DAILY Triple Antibiotic 3.5mg-400 unit- 5,000 unit/gram ointment 1 applic topical BID PRN (Reason: unknown) [place] Low Dose Aspirin 81 mg tablet,delayed release (DR/EC) 81 mg PO QAM tamsulosin 0.4 mg capsule 0.4 mg PO QAM losartan 50 mg Tablet 25 mg PO DAILY 30 Days Qty: 30 0RF atorvastatin 40 mg Tablet 40 mg PO BEDTIME 30 Days Qty: 30 0RF carvedilol 6.25 mg Tablet 6.25 mg PO BID 30 Days Qty: 60 0RF Klor-Con M20 20 mEq Tablet,Er Particles/Crystals 20 meq PO DAILY 30 Days Qty: 30 0RF Lasix 40 mg tablet 40 mg PO DAILY 30 Days Qty: 30 0RF Advair Diskus 100-50 mcg/dose blister with device 1 inh inhalation BID Qty: 60 0RF metformin 500 mg tablet 500 mg PO BID 30 Days Qty: 60 0RF (DME) glucometer testing kit See Rx Instructions .Route .MEDSUPPLY Qty: 1 0RF Rx Instructions: Glucometer testing kit Lancets, 100 Strips 100 Seroquel 400 mg tablet 800 mg PO .qhs Qty: 14 0RF gabapentin 800 mg tablet 800 mg PO TID Qty: 30 0RF ascorbic acid (vitamin C) [Vitamin C] 500 mg tablet 500 mg PO DAILY 30 Days Qty: 30 1RF albuterol sulfate 90 mcg/actuation HFA aerosol inhaler 2 inh inhalation Q4H PRN (Reason: shortness of breath or wheezing) Qty: 8.5 0RF gabapentin 800 mg tablet 800 mg PO TID 30 Days Qty: 90 1RF quetiapine [Seroquel] 400 mg tablet 800 mg PO BEDTIME 30 Days Qty: 60 1RF Discharge Orders: Discharge ED (Routine); Ordered 01/09/23 Ordered By: Silvio Chavis Patient Instructions: Shortness of Breath (ED) Activity Restrictions/Additional Instructions: Please cut your Seroquel in half and take 1/2 tablet at bedtime. This will help in the weaning process. Please follow-up with your family practice doctor for further weaning instructions. Coding Level of Care Code ED [employer] M[employer]ainer for [employer]
--- NOTE | 2023-01-09 19:47 | PC.NURSE ---
DC papers taken to bedside. Pt states he doesn't want to leave. States he needs breathing treatments. Explained to pt labs were ok and the MD feels it is appropriate for DC. Pt states he is not leaving. MD notified. MD requests security to be notified to accompany MD to room to give dc information to pt.
== END 2023-01-09 19:59 | disposition home or self-care (01) ==
PROVIDERS: Emergency Medicine; Emergency Provider Emergency Medicine
DX: R06.02 Shortness of breath (principal); R40.0 Somnolence; S50.861A Insect bite (nonvenomous) of right forearm, initial encounter; I50.9 Heart failure, unspecified; J44.9 Chronic obstructive pulmonary disease, unspecified; W57.XXXA Bitten or stung by nonvenomous insect and other nonvenomous arthropods, initial encounter; Y93.9 Activity, unspecified; Y92.9 Unspecified place or not applicable; Z59.00 Homelessness unspecified; Z79.899 Other long term (current) drug therapy
CPT/HCPCS: 36415; 71045; 80053; 85025; 93005; 99285

== ENCOUNTER 2023-01-16 03:10 | Inpatient (IN) | payer MEDICAID, SELFPAY ==
[2023-01-16] VITALS (8 sets, daily range): BP systolic 140–165; BP diastolic 92–106; PULSE 79–109; RESP 22–28; TEMP 36.8–37.1; O2SAT 89–99; BMI 30.5
--- NOTE | 2023-01-16 03:15 | W.ED.SOB ---
Documented by User: Lino Ling MD 01/28/23 11:26 HPI - SOB/Dyspnea General: Chief Complaint: Psychiatric Symptoms Stated Complaint: SOB Time Seen by Provider: 01/16/23 03:15 History of Present Illness: HPI Narrative: Mr Cortes is a 57-year-old gentleman with complex history including psychiatric disorder presented to the emergency department for mental health evaluation. Patient endorses doing some speed tonight that he thinks was mixed with fentanyl which makes him crazy . He appears clinically intoxicated with sympathomimetics and history is mildly limited by set ingestion. Twelve-lead EKG shows a he is fixated on his Seroquel being at 800 mg. He does not like taking this high of a dose for somewhat unclear reasons but reports that when he takes any less he is unable to sleep for days. I think this is likely multifactorial. He wants to be inpatient for decreasing Seroquel. He reports that a previous psychiatrist told him to say that he was suicidal in order to be admitted. Otherwise patient has numerous baseline concerns essentially. No other specific changes in health, exacerbating, or alleviating factors identified. Onset (ago): hour(s) Severity: moderate Associated symptoms: Reports palpitations and other Review of Systems General: Reports: 10 or more systems reviewed and unremarkable except in HPI and below Card: Reports: palpitations PFSH ED PFSH: Medical History Asthma Cannabis dependence, uncomplicated CHF (congestive heart failure) COPD (chronic obstructive pulmonary disease) Homeless single person On combination antipsychotic drug therapy Psychiatric care Suicidal ideation Surgical History Status post club foot correction at Family History Mother Psychiatric illness Schizophrenia Social History Smoking and tobacco status: former smoker Smoking risk assessment/counseling performed?: Yes Tobacco counseling given: counseling >3 minutes Alcohol intake: never Household members: other Details: roommate x 1 Physical Exam Const: COMMON NORMALS: alert GENERAL APPEARANCE: cooperative and well developed HENMT: COMMON NORMALS: normocephalic and atraumatic HEAD & SCALP: normocephalic and atraumatic THROAT: posterior oropharynx normal Eye: COMMON NORMALS: conjunctivae normal CONJUNCTIVA: Yes conjunctivae normal SCLERA: sclerae normal Neck/C-Spine: COMMON NORMALS: supple GENERAL: Yes trachea midline Resp: COMMON NORMALS: clear to auscultation bilaterally EFFORT & INSPECTION: Yes able to speak in complete sentences AUSCULTATION: clear to auscultation bilaterally Cardio: COMMON NORMALS: regular rhythm RATE: tachycardic RHYTHM: regular rhythm GI: COMMON NORMALS: Soft to palpation PALPATION: Yes Soft to palpation and No Tenderness to palpation present (GI) PERCUSSION: normal to percussion Extremity: GENERAL: Yes normal exam except as noted and No edema Neuro: COMMON NORMALS: moves all extremities SENSORIUM/ORIENTATION: Yes alert and No Orientation impaired Psych: COMMON NORMALS: mental status grossly normal and Normal thought process present ACTIVITY/MOTOR BEHAVIOR: Yes restless MOOD & AFFECT: Yes anxious THOUGHT PROCESS: Normal thought process present Course Vital Signs: Vital signs: Vital Signs Temperature 97.8 F 01/28/23 06:00 Pulse Rate 82 01/28/23 06:00 Respiratory Rate 18 01/28/23 06:00 Blood Pressure 130/82 01/28/23 06:00 Pulse Oximetry 91 01/28/23 06:00 Oxygen Delivery Me thod Room Air 01/28/23 06:00 Oxygen Flow Rate 2 01/24/23 20:00 Fraction of Inspir ed Oxygen 35 01/18/23 20:35 MDM - SOB/Dyspnea Medical Decision Making 57-year-old gentleman presenting with acute intoxication which he identifies as speed . He notes various other complaints however also notes that these are chronic. He is experiencing symptoms consistent with some sort of sympathomimetic. He is nontoxic. EKG demonstrates sinus tachycardia with mild irregularity, normal axis and intervals, no STEMI. Labs with minimal leukocytosis likely not clinically significant, normal hemoglobin and platelet count. Metabolic panel without acute electrolyte derangement. Renal function is preserved. Minimal elevation in ALT is nonspecific and there is no right upper quadrant tenderness palpation. Toxic ingestions are negative and urine drug screen is pending. Chest x-ray appears grossly similar to prior on my review, no lobar consolidation or pneumothorax. Catheter report reviewed from 12/19/2022. Patient is estimated EF of 25% however has nonischemic cardiomyopathy. He is not grossly volume overloaded on clinical exam. Patient treated with anxiolysis and was concerned about possible reaction to adulterant in what he took and had not convincing evidence of allergic reaction regarding improvement with Pepcid Benadryl and steroids. I do not think that these need to be continued as the patient had more improvement from the anxiolytic. Patient handed off to Dr. Maher pending review by psychiatry service for disposition. Medical Records I reviewed the patient's medical records. Lab Data I reviewed the patient's lab results. 01/23/23 09:12 01/23/23 09:12 Labs/Radiology: Radiology Impressions Chest X-Ray 01/16/23 03:32 IMPRESSION: 1. Strandy opacities in the left lower hemithorax likely represents atelectasis although left basilar infiltrate and pneumonia cannot be entirely excluded. 2. Mildly prominent cardiac silhouette. Abdomen/Pelvis CT 01/16/23 22:05 IMPRESSION: 1. Diffuse, mild wall thickening of the bladder. In the correct clinical setting, this may suggest cystitis. Recommend correlation with laboratory findings. Alternatively, this may be secondary to chronic outlet obstruction. 2. Scattered diverticula in the sigmoid colon. No evidence for diverticulitis. 3. Increased fecal content in the colon. 4. Incidental/nonacute findings are listed in the report. Laboratory Results WBC 10.1 10^3/uL (4.0-10.0) H 01/16/23 03:52 RBC 4.53 10^6/uL (4.1-5.3) 01/16/23 03:52 Hgb 12.9 g/dL (11.7-16.6) 01/16/23 03:52 Hct 40.6 % (42.0-52.0) L 01/16/23 03:52 MCV 89.6 fl (80-94) 01/16/23 03:52 MCH 28.5 pg (28.0-34.0) 01/16/23 03:52 MCHC 31.8 g/dL (30.0-36.0) 01/16/23 03:52 RDW 15.0 % (12.1-15.1) 01/16/23 03:52 Plt Count 302 10^3/cmm (130-400) 01/16/23 03:52 MPV 8.7 fL (7.4-10.4) 01/16/23 03:52 Neut % (Auto) 72.4 % 01/16/23 03:52 Lymph % (Auto) 17.8 % 01/16/23 03:52 [place] % (Auto) 7.9 % 01/16/23 03:52 Eos % (Auto) 0.9 % 01/16/23 03:52 Baso % (Auto) 0.8 % 01/16/23 03:52 Neut # (Auto) 7.31 10^3/uL (1.8-7.7) 01/16/23 03:52 Lymph # (Auto) 1.8 10^3/uL (0.8-4.8) 01/16/23 03:52 [place] # (Auto) 0.8 10^3/uL (0.2-0.9) 01/16/23 03:52 Eos # (Auto) 0.1 10^3/uL (0.0-0.8) 01/16/23 03:52 Baso # (Auto) 0.1 10^3/uL (0.0-0.1) 01/16/23 03:52 Nucleated RBC % (auto) 0 % 01/16/23 03:52 Nucleated RBCs # 0.0 /100WBC 01/16/23 03:52 Sodium 136 mmol/L (136-145) 01/16/23 03:52 Potassium 4.3 mmol/L (3.5-5.1) 01/16/23 03:52 Chloride 100 mmol/L (98-107) 01/16/23 03:52 Carbon Dioxide 25 mmol/L (22-29) 01/16/23 03:52 Anion Gap 15.3 (5-19) 01/16/23 03:52 BUN 21 mg/dL (6-20) H 01/16/23 03:52 Creatinine 1.0 mg/dL (0.7-1.2) 01/16/23 03:52 GFR Calculation 77.0 mL/min (90-130) L 01/16/23 03:52 Glucose 121 mg/dL (65-115) H 01/16/23 03:52 Calculated Osmolality 286 mOsm/kg (285-295) 01/16/23 03:52 Calcium 8.8 mg/dL (8.5-10.5) 01/16/23 03:52 Total Bilirubin 0.2 mg/dL (0.15-1.2) 01/16/23 03:52 AST 30 U/L (0-40) 01/16/23 03:52 ALT 56 U/L (0-41) H 01/16/23 03:52 Alkaline Phosphatase 103 U/L (40-130) 01/16/23 03:52 Total Protein 6.8 g/dL (6.6-8.7) 01/16/23 03:52 Albumin 4.2 g/dL (3.5-5.2) 01/16/23 03:52 Globulin 2.6 g/dL (1.3-4.6) 01/16/23 03:52 TSH 1.40 uIU/mL (0.27-4.20) 01/16/23 03:52 Salicylates < 0.3 mg/dL (3-10) L 01/16/23 03:52 Urine Opiates Screen Negative ng/mL (Negative) 01/16/23 04:50 Acetaminophen < 5.0 ug/mL (10-30) L 01/16/23 03:52 Ur Barbiturates Screen Negative ng/mL (Negative) 01/16/23 04:50 Ur Phencyclidine Scrn Negative ng/mL (Negative) 01/16/23 04:50 Ur Amphetamines Screen Positive ng/mL (Negative) H 01/16/23 04:50 U Benzodiazepines Scrn Negative ng/mL (Negative) 01/16/23 04:50 Urine Cocaine Screen Negative ng/mL (Negative) 01/16/23 04:50 U Marijuana (THC) Screen Positive ng/mL (Negative) H 01/16/23 04:50 Ethyl Alcohol < 10 mg/dL (0-10) 01/16/23 03:52 Discharge Plan Discharge Patient Disposition: Admitted As Inpatient Admit Provider: Jaiden Pozo Clinical Impression: Polysubstance abuse, Suicidal ideation Condition: Stable Discharge Diet: Cardiac Discharge Activity: Increase activity as tolerated Coding Level of Care Code ED Green Marketer for Chg Fwd Documented by User: Fany Maher MD 01/16/23 08:10 HPI - SOB/Dyspnea General: Chief Complaint: Psychiatric Symptoms Stated Complaint: SOB Time Seen by Provider: 01/16/23 03:15 [facility] ED PFSH: Medical History Asthma Cannabis dependence, uncomplicated CHF (congestive heart failure) COPD (chronic obstructive pulmonary disease) Homeless single person On combination antipsychotic drug therapy Psychiatric care Suicidal ideation Surgical History Status post club foot correction at Family History Mother Psychiatric illness Schizophrenia Social History Smoking and tobacco status: former smoker Smoking risk assessment/counseling performed?: Yes Tobacco counseling given: counseling >3 minutes Alcohol intake: never Household members: other Details: roommate x 1 Course Vital Signs: Vital signs: Vital Signs Temperature 97.8 F 01/28/23 06:00 Pulse Rate 82 01/28/23 06:00 Respiratory Rate 18 01/28/23 06:00 Blood Pressure 130/82 01/28/23 06:00 Pulse Oximetry 91 01/28/23 06:00 Oxygen Delivery Me thod Room Air 01/28/23 06:00 Oxygen Flow Rate 2 01/24/23 20:00 Fraction of Inspir ed Oxygen 35 01/18/23 20:35 MDM - SOB/Dyspnea Medical Decision Making 57-year-old gentleman presenting with acute intoxication which he identifies as speed . He notes various other complaints however also notes that these are chronic. He is experiencing symptoms consistent with some sort of sympathomimetic. He is nontoxic. EKG demonstrates sinus tachycardia with mild irregularity, normal axis and intervals, no STEMI. Labs with minimal leukocytosis likely not clinically significant, normal hemoglobin and platelet count. Metabolic panel without acute electrolyte derangement. Renal function is preserved. Minimal elevation in ALT is nonspecific and there is no right upper quadrant tenderness palpation. Toxic ingestions are negative and urine drug screen is pending. Chest x-ray appears grossly similar to prior on my review, no lobar consolidation or pneumothorax. Catheter report reviewed from 12/19/2022. Patient is estimated EF of 25% however has nonischemic cardiomyopathy. He is not grossly volume overloaded on clinical exam. Patient treated with anxiolysis and was concerned about possible reaction to adulterant in what he took and had not convincing evidence of allergic reaction regarding improvement with Pepcid Benadryl and steroids. I do not think that these need to be continued as the patient had more improvement from the anxiolytic. Patient handed off to Dr. Maher pending review by psychiatry service for disposition. Patient was evaluated by Dr. Louis he did spoke to Dr. Larson and will admit this time to Dr. Larson patient is medically cleared and is voluntary. Lab Data 01/23/23 09:12 01/23/23 09:12 Labs/Radiology: Radiology Impressions Chest X-Ray 01/16/23 03:32 IMPRESSION: 1. Strandy opacities in the left lower hemithorax likely represents atelectasis although left basilar infiltrate and pneumonia cannot be entirely excluded. 2. Mildly prominent cardiac silhouette. Abdomen/Pelvis CT 01/16/23 22:05 IMPRESSION: 1. Diffuse, mild wall thickening of the bladder. In the correct clinical setting, this may suggest cystitis. Recommend correlation with laboratory findings. Alternatively, this may be secondary to chronic outlet obstruction. 2. Scattered diverticula in the sigmoid colon. No evidence for diverticulitis. 3. Increased fecal content in the colon. 4. Incidental/nonacute findings are listed in the report. Laboratory Results WBC 10.1 10^3/uL (4.0-10.0) H 01/16/23 03:52 RBC 4.53 10^6/uL (4.1-5.3) 01/16/23 03:52 Hgb 12.9 g/dL (11.7-16.6) 01/16/23 03:52 Hct 40.6 % (42.0-52.0) L 01/16/23 03:52 MCV 89.6 fl (80-94) 01/16/23 03:52 MCH 28.5 pg (28.0-34.0) 01/16/23 03:52 MCHC 31.8 g/dL (30.0-36.0) 01/16/23 03:52 RDW 15.0 % (12.1-15.1) 01/16/23 03:52 Plt Count 302 10^3/cmm (130-400) 01/16/23 03:52 MPV 8.7 fL (7.4-10.4) 01/16/23 03:52 Neut % (Auto) 72.4 % 01/16/23 03:52 Lymph % (Auto) 17.8 % 01/16/23 03:52 [place] % (Auto) 7.9 % 01/16/23 03:52 Eos % (Auto) 0.9 % 01/16/23 03:52 Baso % (Auto) 0.8 % 01/16/23 03:52 Neut # (Auto) 7.31 10^3/uL (1.8-7.7) 01/16/23 03:52 Lymph # (Auto) 1.8 10^3/uL (0.8-4.8) 01/16/23 03:52 [place] # (Auto) 0.8 10^3/uL (0.2-0.9) 01/16/23 03:52 Eos # (Auto) 0.1 10^3/uL (0.0-0.8) 01/16/23 03:52 Baso # (Auto) 0.1 10^3/uL (0.0-0.1) 01/16/23 03:52 Nucleated RBC % (auto) 0 % 01/16/23 03:52 Nucleated RBCs # 0.0 /100WBC 01/16/23 03:52 Sodium 136 mmol/L (136-145) 01/16/23 03:52 Potassium 4.3 mmol/L (3.5-5.1) 01/16/23 03:52 Chloride 100 mmol/L (98-107) 01/16/23 03:52 Carbon Dioxide 25 mmol/L (22-29) 01/16/23 03:52 Anion Gap 15.3 (5-19) 01/16/23 03:52 BUN 21 mg/dL (6-20) H 01/16/23 03:52 Creatinine 1.0 mg/dL (0.7-1.2) 01/16/23 03:52 GFR Calculation 77.0 mL/min (90-130) L 01/16/23 03:52 Glucose 121 mg/dL (65-115) H 01/16/23 03:52 Calculated Osmolality 286 mOsm/kg (285-295) 01/16/23 03:52 Calcium 8.8 mg/dL (8.5-10.5) 01/16/23 03:52 Total Bilirubin 0.2 mg/dL (0.15-1.2) 01/16/23 03:52 AST 30 U/L (0-40) 01/16/23 03:52 ALT 56 U/L (0-41) H 01/16/23 03:52 Alkaline Phosphatase 103 U/L (40-130) 01/16/23 03:52 Total Protein 6.8 g/dL (6.6-8.7) 01/16/23 03:52 Albumin 4.2 g/dL (3.5-5.2) 01/16/23 03:52 Globulin 2.6 g/dL (1.3-4.6) 01/16/23 03:52 TSH 1.40 uIU/mL (0.27-4.20) 01/16/23 03:52 Salicylates < 0.3 mg/dL (3-10) L 01/16/23 03:52 Urine Opiates Screen Negative ng/mL (Negative) 01/16/23 04:50 Acetaminophen < 5.0 ug/mL (10-30) L 01/16/23 03:52 Ur Barbiturates Screen Negative ng/mL (Negative) 01/16/23 04:50 Ur Phencyclidine Scrn Negative ng/mL (Negative) 01/16/23 04:50 Ur Amphetamines Screen Positive ng/mL (Negative) H 01/16/23 04:50 U Benzodiazepines Scrn Negative ng/mL (Negative) 01/16/23 04:50 Urine Cocaine Screen Negative ng/mL (Negative) 01/16/23 04:50 U Marijuana (THC) Screen Positive ng/mL (Negative) H 01/16/23 04:50 Ethyl Alcohol < 10 mg/dL (0-10) 01/16/23 03:52 Discharge Plan Discharge Patient Disposition: Admitted As Inpatient Admit Provider: Jaiden Pozo Clinical Impression: Polysubstance abuse, Suicidal ideation Condition: Stable Discharge Diet: Cardiac Discharge Activity: Increase activity as tolerated Coding Level of Care Code ED Green Marketer for Chg Kenneth
--- NOTE | 2023-01-16 03:32 | XRR_ITS ---
PROCEDURE INFORMATION: Exam: XR Chest Exam date and time: 01/16/2023 4:38 AM Age: 57 years old Clinical indication: Shortness of breath; Patient HX: Behavioral health; Additional info: SOB TECHNIQUE: Imaging protocol: Radiologic exam of the chest. Views: 1 view. COMPARISON: CR (CHEST, ) 01/09/2023 5:19 PM FINDINGS: Lungs: There are some strandy opacities present in the left lower hemithorax likely representing atelectasis. Left basilar infiltrate and pneumonia cannot be entirely excluded. Pleural spaces: Unremarkable. No pleural effusion. No pneumothorax. Heart/Mediastinum: The cardiac silhouette is at the upper limits of normal. Bones/joints: Unremarkable. XR/XR chest 1V portable [id number] IMPRESSION: 1. Strandy opacities in the left lower hemithorax likely represents atelectasis although left basilar infiltrate and pneumonia cannot be entirely excluded. 2. Mildly prominent cardiac silhouette.
--- NOTE | 2023-01-16 03:43 | ECG_ITS ---
[facility] Test Date: 2023-01-16 Pat Name: David Cortes Department: Room: Gender: Male Pc Analyst: : 1965 Requested By: Lino Ling Order Number: [id number] Mahesh MD: Alexis Adan M.D. Measurements Intervals [place] Rate: 100 P: 38 [place]: 177 QRS: -11 QRSD: 104 T: 80 QT: 365 QTc: 472 Interpretive Statements SINUS TACHYCARDIA WITH OCCASIONAL SUPRAVENTRICULAR PREMATURE COMPLEXES Compared to ECG 01/09/2023 19:01:42 Sinus rhythm no longer present T-wave abnormality no longer present Electronically Signed On 01-16-2023 12:15:22 CDT by Alexis Adan M.D. [id number]
[2023-01-16 03:57] LABS: Basophils # 0.1 10^3/uL (0.0-0.1); Basophils % 0.8 %; Eosinophils # 0.1 10^3/uL (0.0-0.8); Eosinophils % 0.9 %; Hematocrit 40.6 % (42.0-52.0); Hemoglobin 12.9 g/dL (11.7-16.6); Lymphocytes # 1.8 10^3/uL (0.8-4.8); Lymphocytes % 17.8 %; Mean Corpuscular HGB Conc 31.8 g/dL (30.0-36.0); Mean Corpuscular Hemoglobin 28.5 pg (28.0-34.0); Mean Corpuscular Volume 89.6 fl (80-94); Mean Platelet Volume 8.7 fL (7.4-10.4); Monocytes # 0.8 10^3/uL (0.2-0.9); Monocytes % 7.9 %; Neutrophils # 7.31 10^3/uL (1.8-7.7); Neutrophils % 72.4 %; Nucleated Red Blood Cells % 0 %; Platelet Count 302 10^3/cmm (130-400); Red Blood Count 4.53 10^6/uL (4.1-5.3); White Blood Count 10.1 10^3/uL (4.0-10.0)
[2023-01-16] MEDS: LORazepam 2 mg/mL INJ 1 mL 1 MG IV (04:09)
[2023-01-16] MEDS: dexamethasone 10 mg/mL INJ IVP (04:14)
[2023-01-16] MEDS: diphenhydrAMINE 50 mg/mL SDV 1mL 25 MG IVP (04:17)
[2023-01-16] MEDS: famotidine 20 mg/2 mL INJ 40 MG IVP (04:21)
[2023-01-16 04:27] LABS: Alanine Aminotransferase 56 U/L (0-41); Albumin Level 4.2 g/dL (3.5-5.2); Alkaline Phosphatase 103 U/L (40-130); Anion Gap 15.3 (5-19); Aspartate Amino Transferase 30 U/L (0-40); Blood Urea Nitrogen 21 mg/dL (6-20); Calcium 8.8 mg/dL (8.5-10.5); Carbon Dioxide 25 mmol/L (22-29); Chloride 100 mmol/L (98-107); Globulin 2.6 g/dL (1.3-4.6); Glucose 121 mg/dL (65-115); Osmolality Calculated 286 mOsm/kg (285-295); Potassium 4.3 mmol/L (3.5-5.1); Sodium 136 mmol/L (136-145); Total Bilirubin 0.2 mg/dL (0.15-1.2); Total Protein 6.8 g/dL (6.6-8.7)
[2023-01-16 04:30] LABS: Acetaminophen < 5.0 ug/mL (10-30); Alcohol Level < 10 mg/dL (0-10); Salicylate < 0.3 mg/dL (3-10)
[2023-01-16] MEDS: LORazepam 2 mg/mL INJ 1 mL 1 MG IVP (05:29)
[2023-01-16 05:46] LABS: Amphetamines Screen Urine Positive (Negative); Barbiturates Screen Urine Negative (Negative); Benzodiazepines Screen Urine Negative (Negative); Cocaine Screen Urine Negative (Negative); Opiate Screen Urine Negative (Negative); PCP Screen Urine Negative (Negative); THC Screen Urine Positive (Negative)
--- NOTE | 2023-01-16 13:05 | PC.NURSE ---
Assumed care of patient at 1300.
--- NOTE | 2023-01-16 16:35 | ECG_ITS ---
[facility] Test Date: 2023-01-16 Pat Name: David Cortes Department: Room: 151 Gender: Male Guide Dog Trainer: : 1965 Requested By: Juanjose Cruz Order Number: [id number] Mahesh MD: Alexis Adan M.D. Measurements Intervals [place] Rate: 108 P: 44 [place]: 177 QRS: -28 QRSD: 102 T: 75 QT: 330 QTc: 443 Interpretive Statements SINUS TACHYCARDIA POSSIBLE LEFT ATRIAL ENLARGEMENT [-0.1mV P-WAVE IN V1/V2] BORDERLINE LEFT AXIS DEVIATION [QRS AXIS < -20] NONSPECIFIC T-WAVE ABNORMALITY ABNORMAL RHYTHM ECG Compared to ECG 01/16/2023 03:43:30 T-wave abnormality now present Electronically Signed On 01-16-2023 18:21:56 CDT by Alexis Adan M.D. [id number]
--- NOTE | 2023-01-16 16:35 | PC.OT ---
OT EVALUATION ATTEMPTED. PATIENT IS SLEEPING SOUNDLY AND DOES NOT AWAKEN.
[2023-01-16] MEDS: FUROsemide 40 mg Tablet PO (17:03)
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
[2023-01-16 17:22] LABS: Troponin(5th) Baseline 23 ng/L (0-15)
[2023-01-16 17:31] LABS: NT Pro B Type Natriuretic Pept 3331 pg/mL (0-125); Procalcitonin 0.04 ng/mL (0-0.5)
--- NOTE | 2023-01-16 17:40 | P.HP_ITS ---
Providers/Chief Complaint Admitting Physician: Jaiden Pozo MD Chief Complaint: SOB History of Present Illness David Cortes is a 57 year old male with a past medical history of nonischemic cardiomyopathy, systolic CHF, smoking, obesity, polysubstance abuse, COPD, currently homeless, currently admitted to the neuropsychiatric unit for polysubstance abuse, hospitalist team was called as patient was complaining of shortness of breath, currently patient's speech is pressured, he has a flight of ideas, he jumps from topic to topic, he is alert to person, to place, to time, he follows commands, he complains of shortness of breath, does admit to smoking, does admit to methamphetamine use, and fentanyl use, he tells me that he was given $1000, and he used that money to buy drugs, he tells me that a lady gave him the money, but he is not exactly sure why, he tells me that currently he is homeless, his big concern is is that he wants his dose of Seroquel to be reduced, he wants to be completely taken off Seroquel, he denies any chest pain, but does complain of shortness of breath, denies any calf pain, no calf swellin g, no leg swelling, no abdominal pain, he tells me that when he was homeless, that he was really getting to him, and right now the AC is feeling great he tells me, does report a cough, no hemoptysis Review of Systems Const: Denies: fever(s) or chills Card: Reports: swelling of feet/ankles and dyspnea on exertion; Denies: chest pain or palpitations Resp: Reports: dyspnea and non-productive cough GI: Denies: abdominal pain : Denies: flank pain, difficulty urinating or dysuria Musc: Denies: neck pain Skin/Breast: Denies: rash Neuro: Denies: headache(s) or numbness in extremities Psych: Reports: difficulty concentrating Medications/Allergies Home Medications Medication Instructions Recorded Confirmed Last Taken Type quetiapine 400 mg tablet (Seroquel) 800 mg PO BEDTIME 30 days #60 tabs 10/27/22 01/16/23 12/14/22 Rx aspirin 81 mg tablet,delayed 81 mg PO QAM 12/15/22 01/16/23 12/15/22 06:30 History release (Milan Low Dose Aspirin) multivitamin 1 tab PO DAILY 12/15/22 01/16/23 Unknown History neomycin-bacitracn Zn-polymyx 3.5 1 applic topical BID PRN unknown 12/15/22 01/16/23 Unknown History mg-400 unit-5,000 unit/gram top oint (Triple Antibiotic) atorvastatin 40 mg tablet 40 mg PO BEDTIME 30 days #30 tabs 12/19/22 01/16/23 Unknown Rx carvedilol 6.25 mg tablet 6.25 mg PO BID 30 days #60 tabs 12/19/22 01/16/23 Unknown Rx fluticasone 100 mcg-salmeterol 50 1 inh inhalation BID #60 ea 12/19/22 01/16/23 Unknown Rx mcg/dose blistr powdr for inhalation (Advair Diskus) furosemide 40 mg tablet (Lasix) 40 mg PO DAILY 30 days #30 tabs 12/19/22 01/16/23 Unknown Rx glucometer testing kit #1 ea 12/19/22 01/16/23 Unknown Rx losartan 50 mg tablet 25 mg PO DAILY 30 days #30 tabs 12/19/22 01/16/23 Unknown Rx metformin 500 mg tablet 500 mg PO BID 30 days #60 tabs 12/19/22 01/16/23 Unknown Rx potassium chloride 20 mEq 20 meq PO DAILY 30 days #30 tabs 12/19/22 01/16/23 Unknown Rx tablet,extended release(part/cryst) (Klor-Con M) gabapentin 800 mg tablet 800 mg PO TID #30 tabs 01/03/23 01/16/23 Unknown Rx quetiapine 400 mg tablet (Seroquel) 800 mg PO QPM 01/16/23 01/16/23 Unknown History Allergies Allergy/AdvReac Type Severity Reaction Status Date / Time fentanyl Allergy ALGY-Anaphy Verified 01/16/23 10:09 laxis PFSH Acute PFSH: Medical History Asthma Cannabis dependence, uncomplicated CHF (congestive heart failure) COPD (chronic obstructive pulmonary disease) Homeless single person On combination antipsychotic drug therapy Psychiatric care Suicidal ideation Surgical History Status post club foot correction at Family History Mother Psychiatric illness Schizophrenia Social History Smoking and tobacco status: former smoker Smoking risk assessment/counseling performed?: Yes Tobacco counseling given: counseling >3 minutes Alcohol intake: never Household members: other Details: roommate x 1 Vitals/I&O/Wt Last Vital Signs Temp 98.4 F 01/16/23 16:01 Pulse 109 H 01/16/23 16:01 Resp 28 H 01/16/23 16:01 BP 160/106 01/16/23 16:01 Pulse Ox 89 L 01/16/23 16:01 O2 Del Method Room Air 01/16/23 16:01 Weight last 48 hrs Weight 102.058 kg Physical Exam Const: COMMON NORMALS: no acute distress and patient oriented x3 GENERAL APPEARANCE: cooperative HENMT: COMMON NORMALS: normocephalic and Normal external nose present HEAD & SCALP: normocephalic FACE & SINUS: normal facial exam NOSE: Normal external nose present Eye: COMMON NORMALS: Equal, round and reactive pupils present, EOMs intact bilaterally, conjunctivae normal and no scleral icterus CONJUNCTIVA: Yes conjunctivae normal PUPIL: Yes Equal, round and reactive pupils present Neck/C-Spine: COMMON NORMALS: full ROM, no lymphadenopathy, no JVD, Thyroid normal and No carotid bruits THYROID: Thyroid normal Lymph: LYMPHATIC: no lymphadenopathy noted Chest: COMMONS NORMALS: normal inspection of the chest Resp: COMMON NORMALS: normal respiratory effort, No retractions, No use of accessory muscles and clear to auscultation bilaterally AUSCULTATION: clear to auscultation bilaterally Cardio: COMMON NORMALS: no JVD, regular rate, regular rhythm, S1 normal heart sound present, S2 normal heart sound present, No murmurs present (Cardio) and Peripheral pulses 2+ throughout RATE: regular rate RHYTHM: regular rhythm HEART SOUNDS: S1 normal heart sound present and S2 normal heart sound present PERIPHERAL PULSES: Peripheral pulses 2+ throughout GI: COMMON NORMALS: Normal to inspection, nondistended, normoactive bowel sounds present, Soft to palpation and non-tender : BLADDER/KIDNEY EXAM: Yes no CVA tenderness Back/Pelvis: COMMON NORMALS: no CVA tenderness Extremity: COMMON NORMALS: normal to inspection, full ROM, capillary refill no rmal, no calf tenderness and no pedal edema Neuro: COMMON NORMALS: patient oriented x3, CN's II-XII intact bilaterally, moves all extremities, no focal motor deficits and no sensory deficits noted Psych: APPEARANCE: Yes unkempt ATTITUDE: Yes calm SPEECH: Yes excessive, Yes rapid and Yes Pressured speech present MOOD & AFFECT: Yes elevated mood THOUGHT PROCESS: disorganized and Tangential thought process present Skin: COMMON NORMALS: turgor normal and no jaundice GENERAL SKIN EXAM: turgor normal Data 01/16/23 03:52 01/16/23 03:52 A&P Assessment and plan (1) Shortness of breath: (2) Type 2 diabetes mellitus: (3) Systolic CHF: (4) Cannabis use disorder: (5) Methamphetamine use disorder, severe: (6) COPD (chronic obstructive pulmonary disease): (7) CHF (congestive heart failure): (8) COPD exacerbation: (9) Acute exacerbation of CHF (congestive heart failure): (10) Encounter for smoking cessation counseling: Plan Shortness of breath -Likely combination of COPD and CHF exacerbation -COPD exacerbation continue prednisone, DuoNeb treatments monitor respiratory status -CHF, will give 1 dose of Lasix today, and daily dose tomorrow, BNP over 3000, -Serial EKGs, troponins, telemetry monitoring -Currently on room air, no significant wheezing on examination, can monitor in the n.p.o. for now -However his respiratory status worsens concerning moved to cardiac stepdown unit -Currently ambulating around the neuropsychiatric unit, no intercostal retractions, no nasal flaring, no suprasternal retractions, respiratory rate 20, no significant wheezing, no crackles -Smoking cessation counseling -Drug cessation counseling -Continue Coreg -Diabetes, low-dose sliding scale -Full code Attestations Medical Necessity Statement*: Patient requires hospitalization for complaints of shortness of breath, likely a combination of CHF COPD exacerbation Diagnoses Shortness of breath R06.02 Type 2 diabetes mellitus E11.9 Systolic CHF I50.20 Cannabis use disorder F12.90 Methamphetamine use disorder, severe F15.20 COPD (chronic obstructive pulmonary disease) J44.9 CHF (congestive heart failure) I50.9 COPD exacerbation J44.1 Acute exacerbation of CHF (congestive heart failure) I50.9 Encounter for smoking cessation counseling Z71.6
[2023-01-16 17:43] LABS: C Reactive Protein 11.1 mg/L (0.0-4.9); Magnesium 2.2 mg/dL (1.7-2.3)
[2023-01-16] MEDS: ondansetron 4 MG Tablet PO (17:53)
[2023-01-16] MEDS: predniSONE 20 mg Tablet 40 MG PO (17:53)
[2023-01-16 18:20] LABS: Glucose Point of Care 168 mg/dL (70-110)
--- NOTE | 2023-01-16 18:26 | ECG_ITS ---
[facility] Test Date: 2023-01-16 Pat Name: David Cortes Department: Room: 151 Gender: Male Edge Sawyer: : 1965 Requested By: Juanjose Cruz Order Number: [id number] Mahesh MD: Alexis Adan M.D. Measurements Intervals [place] Rate: 104 P: 34 UT: 156 QRS: -13 QRSD: 108 T: 75 QT: 340 QTc: 449 Interpretive Statements SINUS TACHYCARDIA WITH FREQUENT VENTRICULAR PREMATURE COMPLEXES POSSIBLE LEFT ATRIAL ENLARGEMENT [-0.1mV P-WAVE IN V1/V2] NONSPECIFIC T-WAVE ABNORMALITY ABNORMAL RHYTHM ECG Compared to ECG 01/16/2023 16:52:03 Ventricular premature complex(es) now present T-wave abnormality still present Electronically Signed On 01-17-2023 8:00:10 CDT by Alexis Adan M.D. [email or web address]
[2023-01-16 19:42] LABS: Troponin 5 2HR 26.29 ng/L (0-15)
[2023-01-16 19:43] LABS: Troponin 5 2HR Delta 3.29 ABS# (0-10)
[2023-01-16 21:28] LABS: Glucose Point of Care 179 mg/dL (70-110)
[2023-01-16] MEDS: quetiapine 100 mg Tablet 200 MG PO ×2 (21:44→21:59)
[2023-01-16] MEDS: gabapentin 400 mg Capsule 800 MG PO ×2 (21:45→21:59)
[2023-01-16] MEDS: quetiapine 300 mg Tablet 600 MG PO ×2 (21:45→21:59)
[2023-01-16] MEDS: carvedilol 6.25 mg Tablet PO ×2 (21:45→22:00)
[2023-01-16] MEDS: atorvastatin 40 mg Tablet PO ×2 (21:45→21:58)
[2023-01-16 22:01] LABS: ABG PCO2 50.1 mmHg (35-45); ABG PH Result 7.37 (7.35-7.45); Alveolar-Arterial Oxygen Gradi 2.5 mmHg (5-10); Arterial Blood Gas Hematocrit 42.4 % (42-52); Base Excess ABG 2.4 mmol/L (-2.0-2.0); Blood Gas Allen Test Pos; Blood Gas Operator Identificat WALCI; Blood Gas Sample Site Radial, right; Blood Gas Sample Type Arterial; Carboxyhemoglobin 1.5 %THgb (0.4-20.1); HCO3 ABG 28.7 mmol/L (22-26); HGB O2 Sat 91.7 % (95-100); Ionized Calcium Level - ABG 1.2 mmol/L (1.1-1.4); Methemoglobin 0.7 % (0.4-1.5); Oxygen Device ROOM AIR; Oxygen Saturation ABG 93.7; PO2 ABG 68.8 mmHg (80.0-100.0); Potassium Level - ABG 4.3 mmol/L (3.5-5.0); Total Hemoglobin 13.8 g/dL (14-18)
--- NOTE | 2023-01-16 22:01 | W.PM.EVENTAC ---
Event Note Event Note: Rapid response called for hypoxia As per the nursing staff patient has been dry heaving but no active emesis When entered the room patient was tossing in bed He was saturating 93% on room air He keeps falling back to sleep When he sleeps he snores pretty loudly and his saturation drops to 87% I do believe he seems to be suffering from sleep apnea He is complaining of some mild abdominal discomfort Patient is awake, able to respond to verbal stimuli Able to answer simple questions No active signs of seizures Very restless Tossing in bed Normal hemodynamics Blood pressure normal Afebrile Abdomen distended however mild tenderness epigastric region Assessment and plan Patient might be retaining urine that is why complaining of hypogastric region pain I will transfer him to [facility], Dykes catheter Diuresing Request CT abdomen pelvis We will give him Ativan for his agitation Patient will need suicidal precaution One-to-one supervision Patient is full code
--- NOTE | 2023-01-16 22:05 | CTR_ITS ---
PROCEDURE INFORMATION: Exam: CT Abdomen And Pelvis Without Contrast Exam date and time: 01/16/2023 10:26 PM Age: 57 years old Clinical indication: Abdominal pain; Generalized; Additional info: Abd pain TECHNIQUE: Imaging protocol: Computed tomography of the abdomen and pelvis without contrast. Sagittal and coronal reformatted images were created and reviewed. Radiation optimization: All CT scans at this facility use at least one of these dose optimization techniques: automated exposure control; mA and/or kV adjustment per patient size (includes targeted exams where dose is matched to clinical indication); or iterative reconstruction. REPORTING DATA: Count of CT and Cardiac NM exams in prior 12 months: This patient has received 2 known CTs and 0 known cardiac nuclear medicine studies in the 12 months prior to the current study. COMPARISON: CT kidney stone [id number] 06/10/2022 11:20 PM RADIATION DOSE METRICS: Total DLP (mGy-cm): 1065.91 FINDINGS: Limitations: Evaluation of solid organs and vasculature is limited without intravenous contrast. Lungs: There is linear scarring in the left lower lobe. Pleural spaces: No pleural effusion. Heart: Stable marked enlargement of the visualized portions of the heart. Liver: The liver is unremarkable. Gallbladder and bile ducts: The gallbladder is unremarkable. No biliary ductal dilatation. Pancreas: Stable mild atrophy of the pancreatic parenchyma. No pancreatic ductal dilatation. Spleen: The spleen is unremarkable. Adrenal glands: The right and left adrenal glands are unremarkable. Kidneys and ureters: The right and left kidneys are unremarkable. The right and left ureters are unremarkable. Stomach and bowel: Scattered diverticula in the sigmoid colon. No evidence for diverticulitis. Increased fecal content in the colon. No acute abnormality in the small bowel. No acute abnormality in the small bowel. Ingested contents in the stomach. Appendix: The appendix is visualized and is unremarkable. No findings to suggest acute appendicitis. Intraperitoneal space: No free intraperitoneal air. No ascites. No loculated fluid collections to suggest an abscess. Vasculature: Stable mild atherosclerotic calcifications in the visualized arteries. No evidence for aortic aneurysm. Lymph nodes: No lymphadenopathy. Urinary bladder: Diffuse, mild wall thickening of the bladder. Reproductive: Stable mild enlargement of the prostate gland. Stable nonspecific parenchymal calcifications in the prostate gland. Bones/joints: Degenerative changes in the spine and hips. Moderate spinal canal stenosis at L4-L5. Mild spinal canal stenosis at L2-L3, L3-L4, and L5-S1. Multilevel foraminal stenosis of varying severity in the lumbar spine. Straightening of the lumbar spine. This may be due to positioning versus muscle spasm. Osseous findings are stable. Soft tissues: Stable small, fat-containing umbilical hernia. No evidence for strangulation. No acute abnormality in the extra-abdominal soft tissues. CT/CT abdomen pelvis wo con [id number] IMPRESSION: 1. Diffuse, mild wall thickening of the bladder. In the correct clinical setting, this may suggest cystitis. Recommend correlation with laboratory findings. Alternatively, this may be secondary to chronic outlet obstruction. 2. Scattered diverticula in the sigmoid colon. No evidence for diverticulitis. 3. Increased fecal content in the colon. 4. Incidental/nonacute findings are listed in the report.
[2023-01-16] MEDS: LORazepam 2 mg/mL INJ 1 mL IM (22:19)
--- NOTE | 2023-01-16 22:35 | ECG_ITS ---
[facility] Test Date: 2023-01-16 Pat Name: David Cortes Department: Room: 151 Gender: Male Periodicals Clerk: : 1965 Requested By: Juanjose Cruz Order Number: [id number] Mahesh MD: Alexis Adan M.D. Measurements Intervals [place] Rate: 93 P: 60 MS: 177 QRS: 35 QRSD: 105 T: 69 QT: 373 QTc: 466 Interpretive Statements SINUS RHYTHM POSSIBLE LEFT ATRIAL ENLARGEMENT [-0.1mV P-WAVE IN V1/V2] Compared to ECG 01/16/2023 18:26:21 Sinus tachycardia no longer present Ventricular premature complex(es) no longer present T-wave abnormality no longer present Electronically Signed On 01-17-2023 7:59:57 CDT by Alexis Adan M.D. [id number]
[2023-01-16 23:28] LABS: Troponin 5 6HR 26.19 ng/L (0-15)
[2023-01-16 23:31] LABS: Troponin 5 6HR Delta 3.19 ng/L (0-12)
[2023-01-17] VITALS (12 sets, daily range): BP systolic 126–145; BP diastolic 75–90; PULSE 73–100; RESP 18–27; TEMP 36.8–37; O2SAT 92–98
--- NOTE | 2023-01-17 00:13 | PC.NURSE ---
Patient was observed on 15 minute rounds and appeared to be sleeping. Roughly 5 min later patient was observed from the nurses station getting up and accidentally slamming his left hand in the door while trying to go to the bathroom. Staff went to check on patient and patient was breathing heavy with wheezing sounds. Patient appeared to be diaphoretic and complaining of being cold, having difficulty breathing and stated that he has thrown up multiple times. Due to patients state a rapid response was called and vitals were taken. Patient continued to not be able to sit still and continues with rapid breathing. It was determined that patient needed a CT of his abdomen and pelvis and needed to be transferred to the [facility].
[2023-01-17 00:28] LABS: Add Urine Microscopic? NO; Charge for UA Resulting for Rev
[2023-01-17 00:35] LABS: Bilirubin Urine Neg (Negative); Blood Urine Neg (Negative); Glucose Urine UA Norm (Normal); Ketones Urine Negative (Negative); Leukocyte Esterase Urine Negative (Negative); Nitrate Urine Negative (Negative); Protein Urine Neg (Negative); Specific Gravity, Urine 1.015 (1.005-1.030); Urine Appearance Clear (CLEAR); Urine Color Yellow (Yellow); Urobilinogen Urine Neg (Negative); pH Urine 5 (5-7)
[2023-01-17] MEDS: FUROsemide 10 mg/mL SDV 2mL 20 MG IVP (01:19)
[2023-01-17] MEDS: ipratropium-albuterol 3 mL Neb INHALATION ×4 (02:06→20:58)
[2023-01-17 05:51] LABS: Basophils % 0.1 %; Hematocrit 41.6 % (42.0-52.0); Hemoglobin 13.1 g/dL (11.7-16.6); Lymphocytes % 9.4 %; Mean Corpuscular HGB Conc 31.5 g/dL (30.0-36.0); Mean Corpuscular Hemoglobin 28.3 pg (28.0-34.0); Mean Corpuscular Volume 89.8 fl (80-94); Mean Platelet Volume 9.3 fL (7.4-10.4); Monocytes # 0.7 10^3/uL (0.2-0.9); Monocytes % 6.7 %; Neutrophils # 8.48 10^3/uL (1.8-7.7); Neutrophils % 83.3 %; Nucleated Red Blood Cells % 0 %; Platelet Count 300 10^3/cmm (130-400); Red Blood Count 4.63 10^6/uL (4.1-5.3); White Blood Count 10.2 10^3/uL (4.0-10.0)
[2023-01-17 06:15] LABS: Magnesium 2.4 mg/dL (1.7-2.3)
[2023-01-17 06:16] LABS: Lactate (Lactic Acid level) 1.5 mmol/L (0.5-2.2)
[2023-01-17 06:22] LABS: Anion Gap 14.6 (5-19); Blood Urea Nitrogen 24 mg/dL (6-20); Calcium 8.8 mg/dL (8.5-10.5); Carbon Dioxide 28 mmol/L (22-29); Chloride 101 mmol/L (98-107); Glucose 164 mg/dL (65-115); NT Pro B Type Natriuretic Pept 3938 pg/mL (0-125); Osmolality Calculated 296 mOsm/kg (285-295); Potassium 4.6 mmol/L (3.5-5.1); Sodium 139 mmol/L (136-145)
[2023-01-17 06:42] LABS: Glucose Point of Care 148 mg/dL (70-110)
[2023-01-17] MEDS: FUROsemide 10 mg/mL SDV 4mL 40 MG IVP ×2 (10:05→21:39)
[2023-01-17] MEDS: multivitamin therapeutic Tablet 1 TAB PO (10:07)
[2023-01-17] MEDS: potassium chloride ER 20 mEq Tablet PO ×2 (10:07→20:56)
[2023-01-17] MEDS: thiamine 100 mg Tablet PO (10:07)
[2023-01-17] MEDS: azithromycin 250 mg Tablet 500 MG PO (10:07)
[2023-01-17] MEDS: predniSONE 20 mg Tablet 40 MG PO (10:07)
[2023-01-17] MEDS: aspirin 81 mg EC Tablet PO (10:08)
[2023-01-17] MEDS: cefTRIAXone 1,000 MG in sodium chloride 0.9% (plus) 50 ML 100 MG IV (10:08)
--- NOTE | 2023-01-17 10:42 | PC.NURSE ---
Pt tolerating clear liquid diet well with no c/o n/v or abdominal discomfort and requesting regular foods. Diet changed to cardiac diet per Anthony.
[2023-01-17 11:35] LABS: Glucose Point of Care 199 mg/dL (70-110)
[2023-01-17] MEDS: insulin lispro 100 unit/1 mL SUBCUT ×2 (12:22→17:44)
--- NOTE | 2023-01-17 14:59 | W.PM.NPUPNS ---
Subjective NPU Subjective: 57-year-old white male with schizoaffective disorder admitted with suicidal ideation with evidence of manic symptoms in the context of the use of methamphetamine on a daily basis for several months. Patient was very short of breath and unable to lay down with a significant reduction in his pulse ox on room air to 89%. He had been transferred to the [facility] surgical unit for further treatment today. Mental Status Exam MSE Comments: Patient was lying in bed receiving a breathing treatment and was not alert and unarousable. He was unable to describe his mood currently. His affect appeared flat. He did not appear to be responding internal stimuli. There was no evidence of delusional thinking. His insight judgment and impulse control remained poor. There was no evidence of any abnormal involuntary motor movements tics or tremors appreciated. He was effectively nonverbal and thought process and thought content were difficult to assess at this time. Vitals/I&O/Wt Last Vital Signs Temp 98.3 F 01/17/23 04:59 Pulse 92 01/17/23 14:00 Resp 20 H 01/17/23 09:15 BP 130/75 01/17/23 04:59 Pulse Ox 93 01/17/23 09:15 O2 Del Method Oxymask 01/17/23 09:15 O2 Flow Rate 2 01/17/23 09:15 FiO2 35 01/17/23 03:21 01/16/23 01/17/23 01/17/23 22:59 06:59 14:59 Intake Total 1710 / 1710 Output Total 2700 / 2700 450 / 450 Balance -2700 / -2700 1260 / 1260 Weight last 48 hrs Weight 102.058 kg Physical Exam Urinary Catheter Management: Dykes: Cath Placed During This Visit: yes Reason for Continuing Indwelling Catheter: Acute Urinary Retention or Obstruction Urinary Catheter Date of Insertion: 01/17/23 Urinary Catheter Time of Insertion: 00:02 Data NPU 01/18/23 03:52 01/18/23 03:52 A&P Assessment and plan (1) Schizophrenia, chronic condition: (2) Methamphetamine use disorder, severe: (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 ?1.? Will reduce seroquel today ?2.? Continue every 15 minute checks for safety. ?3.? Encourage individual, group and milieu therapies. ?4.? Encourage sober living treatment after discharge at the highest level of care to which he is willing to commit. 5. Will accept to NPU once medically stabilized. Involuntary Hold Information 96 Hour Hold: 96 Hour Involuntary Admission: No Attestations NPU Medical Necessity Statement*: Inpatient hospitalization is medically necessary and the clinically appropriate intervention at this time.? We will initiate medications and make changes as indicated. The patient will be on the NPU for at least 2 midnights with likely length of stay 7 to 10 days. Coding Level of Care Code Acute Code for [facility] Diagnoses Schizophrenia, chronic condition F20.9 Methamphetamine use disorder, severe F15.20 Psychotic disorder due to psychoactive substance F19.959 Suicidal ideation R45.851 On combination antipsychotic drug therapy Z79.899
--- NOTE | 2023-01-17 15:48 | PM.PN ---
Subjective Subjective: - Patient was transferred to [facility] overnight due to concerns for worsening respiratory failure -Currently was seen this morning was on BiPAP overnight -Currently on 2 L, alert and awake to person, to place, not to time, -He gives me the thumbs up, he tells me his shortness of breath has improved, no chest pain, no palpitations continues to complain of a cough Vitals/I&O/Wt Last Vital Signs Temp 98.3 F 01/17/23 04:59 Pulse 88 01/17/23 14:50 Resp 20 H 01/17/23 14:50 BP 130/75 01/17/23 04:59 Pulse Ox 92 01/17/23 14:50 O2 Del Method Oxymask 01/17/23 14:50 O2 Flow Rate 1 01/17/23 14:50 FiO2 35 01/17/23 03:21 01/17/23 01/17/23 01/17/23 06:59 14:59 22:59 Intake Total 1710 / 1710 Output Total 2700 / 2700 450 / 450 300 / 750 Balance -2700 / -2700 1260 / 1260 -300 / 960 Weight last 48 hrs Weight 102.058 kg Physical Exam Const: COMMON NORMALS: no acute distress and patient oriented x3 Resp: COMMON NORMALS: normal respiratory effort, No retractions and No use of accessory muscles AUSCULTATION: wheezes Cardio: COMMON NORMALS: regular rate, regular rhythm, S1 normal heart sound present and S2 normal heart sound present RATE: regular rate RHYTHM: regular rhythm HEART SOUNDS: S1 normal heart sound present and S2 normal heart sound present GI: COMMON NORMALS: Normal to inspection, nondistended, normoactive bowel sounds present and non-tender Extremity: COMMON NORMALS: no pedal edema Neuro: COMMON NORMALS: patient oriented x3 Psych: COMMON NORMALS: mental status grossly normal Urinary Catheter Management: Dykes: Cath Placed During This Visit: yes Reason for Continuing Indwelling Catheter: Acute Urinary Retention or Obstruction Urinary Catheter Date of Insertion: 01/17/23 Urinary Catheter Time of Insertion: 00:02 Data 01/17/23 04:09 01/17/23 04:09 A&P Assessment and plan (1) Shortness of breath: (2) Type 2 diabetes mellitus: (3) Systolic CHF: (4) Cannabis use disorder: (5) Methamphetamine use disorder, severe: (6) COPD (chronic obstructive pulmonary disease): (7) CHF (congestive heart failure): (8) COPD exacerbation: (9) Acute exacerbation of CHF (congestive heart failure): (10) Encounter for smoking cessation counseling: (11) Acute respiratory failure with hypoxia: (12) Decreased cardiac ejection fraction: Plan Acute hypoxic respiratory failure -Likely combination of COPD and CHF exacerbation -COPD exacerbation expand to Decadron, continue Rocephin, azithromycin DuoNeb treatments monitor respiratory status -CHF, -3.4 L, Lasix 40 IV twice daily for 2 doses today -Serial EKGs, troponins, telemetry monitoring -Currently on 1 L, has wheezing on examination, advance diet as tolerated -Continue BiPAP as needed during the day, schedule during the night -Continue monitoring with telemetry on RebtelrCtrip -Continue ambulation -Smoking cessation counseling -Drug cessation counseling -Continue Coreg -Diabetes, low-dose sliding scale, monitor blood sugars closely -Dykes catheter in place, to potassium, check magnesium, check creatinine -Full code Plan for today Lasix 40 IV twice daily, expand to Decadron, continue azithromycin, Rocephin BiPAP therapy monitor respiratory status closely Attestations Medical Necessity Statement*: Patient requires hospitalization for acute [place] respiratory failure secondary to COPD, CHF and High MDM includes number and complexity of problems actively addressed during encounter, amount and/or complexity of data reviewed/ordered and described risk of complication, morbidity or mortality of management as documented Diagnoses Shortness of breath R06.02 Type 2 diabetes mellitus E11.9 Systolic CHF I50.20 Cannabis use disorder F12.90 Methamphetamine use disorder, severe F15.20 COPD (chronic obstructive pulmonary disease) J44.9 CHF (congestive heart failure) I50.9 COPD exacerbation J44.1 Acute exacerbation of CHF (congestive heart failure) I50.9 Encounter for smoking cessation counseling Z71.6 Acute respiratory failure with hypoxia J96.01 Decreased cardiac ejection fraction R93.1
[2023-01-17 16:12] LABS: Glucose Point of Care 170 mg/dL (70-110)
[2023-01-17] MEDS: gabapentin 400 mg Capsule 800 MG PO ×2 (17:44→20:56)
[2023-01-17] MEDS: acetaminophen 325 mg Tablet 650 MG PO (18:11)
[2023-01-17] MEDS: benztropine 1 mg Tablet PO (18:11)
[2023-01-17] MEDS: trazodone 50 mg Tablet PO (18:21)
--- NOTE | 2023-01-17 18:22 | PC.NURSE ---
Trazodone 50mg administered to pt at 1822 due to pt threatening to go crazy stating I don't want my sleeping pill at 8 o clock. I want my sleeping pill now and if you don't give it to me, I will go crazy. And not crazy, 1 person in this room, but crazy everyone in this room Will relay this info to commissary officer nurse and administer another 50mg 1 hour later if needed.
[2023-01-17] MEDS: carvedilol 6.25 mg Tablet PO (20:56)
[2023-01-17 21:15] LABS: Glucose Point of Care 147 mg/dL (70-110)
[2023-01-18] VITALS (13 sets, daily range): BP systolic 121–145; BP diastolic 60–83; PULSE 73–86; RESP 16–21; TEMP 36.4–37; O2SAT 92–98
[2023-01-18] MEDS: ipratropium-albuterol 3 mL Neb INHALATION ×4 (02:57→20:20)
[2023-01-18 04:56] LABS: Basophils # 0.1 10^3/uL (0.0-0.1); Basophils % 0.4 %; Eosinophils % 0.1 %; Hematocrit 44.9 % (42.0-52.0); Hemoglobin 14.3 g/dL (11.7-16.6); Lymphocytes # 2.4 10^3/uL (0.8-4.8); Lymphocytes % 14.9 %; Mean Corpuscular HGB Conc 31.8 g/dL (30.0-36.0); Mean Corpuscular Hemoglobin 29.1 pg (28.0-34.0); Mean Corpuscular Volume 91.3 fl (80-94); Monocytes # 1.1 10^3/uL (0.2-0.9); Monocytes % 7.1 %; Neutrophils # 12.46 10^3/uL (1.8-7.7); Nucleated Red Blood Cells % 0 %; Platelet Count 332 10^3/cmm (130-400); Red Blood Count 4.92 10^6/uL (4.1-5.3); Red Cell Distribution Width 15.3 % (12.1-15.1); White Blood Count 16.2 10^3/uL (4.0-10.0)
[2023-01-18 05:30] LABS: Magnesium 2.5 mg/dL (1.7-2.3)
[2023-01-18 05:36] LABS: Anion Gap 16.1 (5-19); Blood Urea Nitrogen 27 mg/dL (6-20); Calcium 8.8 mg/dL (8.5-10.5); Carbon Dioxide 31 mmol/L (22-29); Chloride 96 mmol/L (98-107); Glucose 129 mg/dL (65-115); NT Pro B Type Natriuretic Pept 1207 pg/mL (0-125); Osmolality Calculated 295 mOsm/kg (285-295); Potassium 4.1 mmol/L (3.5-5.1); Sodium 139 mmol/L (136-145)
[2023-01-18 06:34] LABS: Glucose Point of Care 145 mg/dL (70-110)
[2023-01-18] MEDS: cefTRIAXone 1,000 MG in sodium chloride 0.9% (plus) 50 ML 100 MG IV (10:04)
[2023-01-18] MEDS: thiamine 100 mg Tablet PO (10:05)
[2023-01-18] MEDS: multivitamin therapeutic Tablet 1 TAB PO (10:05)
[2023-01-18] MEDS: azithromycin 250 mg Tablet 500 MG PO (10:05)
[2023-01-18] MEDS: acetaminophen 325 mg Tablet 650 MG PO (10:05)
[2023-01-18] MEDS: gabapentin 400 mg Capsule 800 MG PO ×3 (10:05→20:41)
[2023-01-18] MEDS: insulin lispro 100 unit/1 mL SUBCUT (10:06)
[2023-01-18 11:47] LABS: Glucose Point of Care 182 mg/dL (70-110)
[2023-01-18] MEDS: docusate sodium 100 mg Capsule PO ×2 (12:01→22:57)
[2023-01-18] MEDS: polyethylene glycol 3350 Pkt 17 gm PO (12:01)
[2023-01-18] MEDS: carvedilol 6.25 mg Tablet PO ×2 (12:02→20:41)
[2023-01-18] MEDS: FUROsemide 10 mg/mL SDV 4mL 40 MG IVP (12:04)
--- NOTE | 2023-01-18 14:53 | P.PN_ITS ---
Subjective Subjective: Patient was seen this morning, he tells me that his breathing has improved, no nausea, no vomiting, he reports he has not had a bowel movement, he feels significantly constipated Vitals/I&O/Wt Last Vital Signs Temp 97.5 F L 01/18/23 11:23 Pulse 86 01/18/23 13:25 Resp 16 01/18/23 13:20 BP 142/83 01/18/23 11:23 Pulse Ox 95 01/18/23 13:20 O2 Del Method Oxymask 01/18/23 13:20 O2 Flow Rate 2 01/18/23 13:20 FiO2 35 01/17/23 21:00 01/17/23 01/18/23 01/18/23 22:59 06:59 14:59 Intake Total 840 / 2550 240 / 2790 890 / 890 Output Total 650 / 1100 2000 / 3100 Balance 190 / 1450 -1760 / -310 890 / 890 Physical Exam Const: COMMON NORMALS: no acute distress and patient oriented x3 Resp: COMMON NORMALS: normal respiratory effort, No retractions, No use of accessory muscles and clear to auscultation bilaterally AUSCULTATION: clear to auscultation bilaterally Cardio: COMMON NORMALS: regular rate, regular rhythm, S1 normal heart sound present and S2 normal heart sound present RATE: regular rate RHYTHM: regular rhythm HEART SOUNDS: S1 normal heart sound present and S2 normal heart sound present GI: OTHER: Abdomen soft, distended, good bowel sounds in all quadrants Extremity: COMMON NORMALS: no pedal edema Neuro: COMMON NORMALS: patient oriented x3 Psych: COMMON NORMALS: mental status grossly normal Urinary Catheter Management: Dykes: Cath Placed During This Visit: yes Reason for Continuing Indwelling Catheter: Acute Urinary Retention or Obstruction Urinary Catheter Date of Insertion: 01/17/23 Urinary Catheter Time of Insertion: 00:02 Data 01/18/23 03:52 01/18/23 03:52 A&P Assessment and plan (1) Shortness of breath: (2) Type 2 diabetes mellitus: (3) Systolic CHF: (4) Cannabis use disorder: (5) Methamphetamine use disorder, severe: (6) COPD (chronic obstructive pulmonary disease): (7) CHF (congestive heart failure): (8) COPD exacerbation: (9) Acute exacerbation of CHF (congestive heart failure): (10) Encounter for smoking cessation counseling: (11) Acute respiratory failure with hypoxia: (12) Decreased cardiac ejection fraction: Plan Acute hypoxic respiratory failure -Likely combination of COPD and CHF exacerbation -COPD exacerbation expand to Decadron, continue Rocephin, azithromycin DuoNeb treatments monitor respiratory status -CHF, -2 L, Lasix 40 IV 1 dose today -Serial EKGs, troponins, telemetry monitoring -Currently on 1 L, has wheezing on examination, advance diet as tolerated -Continue BiPAP as needed during the day, schedule during the night -Continue monitoring with telemetry on MedSurg -Continue ambulation -Smoking cessation counseling -Drug cessation counseling -Continue Coreg -Diabetes, low-dose sliding scale, monitor blood sugars closely -Dykes catheter in place, to potassium, check magnesium, check creatinine -Stool softener, MiraLAX -Full code Plan for today Lasix today, continue Decadron today antibiotic treatment, be IPAP as needed, up out of bed, stool regimen Attestations Medical Necessity Statement*: Patient requires hospitalization for respiratory failure secondary to COPD, CHF Coding Level of Care Code 29268 Moderate MDM includes number and complexity of problems actively addressed during encounter, amount and/or complexity of data reviewed/ordered and described risk of complication, morbidity or mortality of management as docume nted Diagnoses Shortness of breath R06.02 Type 2 diabetes mellitus E11.9 Systolic CHF I50.20 Cannabis use disorder F12.90 Methamphetamine use disorder, severe F15.20 COPD (chronic obstructive pulmonary disease) J44.9 CHF (congestive heart failure) I50.9 COPD exacerbation J44.1 Acute exacerbation of CHF (congestive heart failure) I50.9 Encounter for smoking cessation counseling Z71.6 Acute respiratory failure with hypoxia J96.01 Decreased cardiac ejection fraction R93.1
[2023-01-18 17:01] LABS: Glucose Point of Care 208 mg/dL (70-110)
[2023-01-18] MEDS: FUROsemide 10 mg/mL SDV 4mL 20 MG IVP (18:19)
--- NOTE | 2023-01-18 18:51 | P.NPUPN_ITS ---
Subjective NPU Subjective: 57-year-old white male with schizoaffective disorder admitted with suicidal ideation with evidence of manic symptoms in the context of the use of methamphetamine on a daily basis for several months. He requested continued reduction in his seroquel. He reported occasional suicidal thoughts. He reports having need to have someone manage his affairs as he reported being irresponsible with finances and reports that he would spend it on meth. He reports of mother a few weeks ago. He had endorsed some depressed mood. He reported struggles with management of his medical issues recently . He reports that he continues to have a home. He had reported continued periods of racing thoughts. Mental Status Exam MSE Comments: Patient was lying in bed receiving a breathing treatment and was alert and oriented to person, place and time. He described his mood as depressed. His affect appeared expansive and mood incongruent. He did not appear to be responding internal stimuli. There was no evidence of delusional thinking. His insight judgment and impulse control remained poor. There was no evidence of any abnormal involuntary motor movements tics or tremors appreciated. His speech was productive with normal volume and increased rate. Vitals/I&O/Wt Last Vital Signs Temp 97.5 F L 01/18/23 11:23 Pulse 73 01/18/23 16:03 Resp 16 01/18/23 16:03 BP 121/73 01/18/23 16:03 Pulse Ox 95 01/18/23 16:03 O2 Del Method Room Air 01/18/23 16:03 O2 Flow Rate 2 01/18/23 13:20 FiO2 35 01/17/23 21:00 01/18/23 01/18/23 01/18/23 06:59 14:59 22:59 Intake Total 240 / 2790 890 / 890 Output Total 1999 / 0 1600 / 1600 Balance -1760 / -310 890 / 890 -1600 / -710 Physical Exam Urinary Catheter Management: Dykes: Cath Placed During This Visit: yes Reason for Continuing Indwelling Catheter: Other Urinary Catheter Date of Insertion: 01/17/23 Urinary Catheter Time of Insertion: 00:02 Data NPU 01/18/23 03:52 01/18/23 03:52 A&P Assessment and plan (1) Schizophrenia, chronic condition: (2) Methamphetamine use disorder, severe: (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 ?1.? Will reduce seroquel today ?2.? Continue every 15 minute checks for safety. ?3.? Encourage individual, group and milieu therapies. ?4.? Encourage sober living treatment after discharge at the highest level of care to which he is willing to commit. 5. Will accept to NPU once medically stabilized. Involuntary Hold Information 96 Hour Hold: 96 Hour Involuntary Admission: No Attestations NPU Medical Necessity Statement*: Inpatient hospitalization is medically necessary and the clinically appropriate intervention at this time.? We will initiate medications and make changes as indicated. The patient will be on the NPU for at least 2 midnights with likely length of stay 7 to 10 days. He remains on medicine at this time due to shortness of breath. Coding Level of Care Code Acute Code for [facility] Diagnoses Schizophrenia, chronic condition F20.9 Methamphetamine use disorder, severe F15.20 Psychotic disorder due to psychoactive substance F19.959 Suicidal ideation R45.851 On combination antipsychotic drug therapy Z79.899
[2023-01-18] MEDS: atorvastatin 40 mg Tablet PO (20:41)
[2023-01-18] MEDS: quetiapine 300 mg Tablet 600 MG PO (20:41)
[2023-01-18 20:43] LABS: Glucose Point of Care 175 mg/dL (70-110)
[2023-01-19] VITALS (12 sets, daily range): BP systolic 101–139; BP diastolic 61–90; PULSE 77–92; RESP 16–20; TEMP 36.3–36.5; O2SAT 92–96
[2023-01-19] MEDS: ipratropium-albuterol 3 mL Neb INHALATION ×3 (02:19→14:24)
[2023-01-19 06:00] LABS: Basophils # 0.1 10^3/uL (0.0-0.1); Eosinophils # 0.1 10^3/uL (0.0-0.8); Eosinophils % 1.1 %; Hematocrit 47.2 % (42.0-52.0); Hemoglobin 15.1 g/dL (11.7-16.6); Lymphocytes # 2.1 10^3/uL (0.8-4.8); Mean Corpuscular Hemoglobin 28.8 pg (28.0-34.0); Mean Corpuscular Volume 89.9 fl (80-94); Mean Platelet Volume 8.8 fL (7.4-10.4); Monocytes # 0.7 10^3/uL (0.2-0.9); Neutrophils # 4.03 10^3/uL (1.8-7.7); Neutrophils % 57.1 %; Nucleated Red Blood Cells % 0 %; Platelet Count 316 10^3/cmm (130-400); Red Blood Count 5.25 10^6/uL (4.1-5.3); Red Cell Distribution Width 14.7 % (12.1-15.1); White Blood Count 7.1 10^3/uL (4.0-10.0)
[2023-01-19 06:22] LABS: Magnesium 2.4 mg/dL (1.7-2.3)
[2023-01-19 06:28] LABS: Glucose Point of Care 135 mg/dL (70-110)
[2023-01-19] MEDS: dexamethasone 10 mg/mL INJ 6 MG IVP (06:35)
[2023-01-19] MEDS: aspirin 81 mg EC Tablet PO (06:35)
[2023-01-19 06:46] LABS: Blood Urea Nitrogen 22 mg/dL (6-20); Calcium 8.4 mg/dL (8.5-10.5); Carbon Dioxide 31 mmol/L (22-29); Chloride 91 mmol/L (98-107); Glomerular Filtration Rate 99.6 mL/min (90-130); Glucose 116 mg/dL (65-115); Osmolality Calculated 272 mOsm/kg (285-295); Sodium 129 mmol/L (136-145)
[2023-01-19 07:09] LABS: NT Pro B Type Natriuretic Pept 707 pg/mL (0-125)
[2023-01-19] MEDS: thiamine 100 mg Tablet PO (08:47)
[2023-01-19] MEDS: gabapentin 400 mg Capsule 800 MG PO ×3 (08:47→21:25)
[2023-01-19] MEDS: cefTRIAXone 1,000 MG in sodium chloride 0.9% (plus) 50 ML 100 MG IV (08:48)
[2023-01-19] MEDS: azithromycin 250 mg Tablet 500 MG PO (08:48)
[2023-01-19] MEDS: multivitamin therapeutic Tablet 1 TAB PO (08:48)
[2023-01-19] MEDS: docusate sodium 100 mg Capsule PO ×2 (10:08→21:26)
[2023-01-19] MEDS: polyethylene glycol 3350 Pkt 17 gm PO (10:08)
[2023-01-19] MEDS: carvedilol 6.25 mg Tablet PO ×2 (10:08→21:25)
[2023-01-19 11:37] LABS: Glucose Point of Care 233 mg/dL (70-110)
[2023-01-19] MEDS: insulin lispro 100 unit/1 mL SUBCUT ×2 (11:48→17:31)
--- NOTE | 2023-01-19 15:12 | P.PN_ITS ---
Subjective Subjective: Patient was seen this morning, he does continue to complain of wheezing but overall improved, he tells me that he does not like the cardiac diet here in the hospital all he got this morning with some often, he continues to be bothered with the Dykes catheter is wondering if it could be removed, Vitals/I&O/Wt Last Vital Signs Temp 97.6 F 01/19/23 08:00 Pulse 86 01/19/23 14:26 Resp 18 01/19/23 14:15 BP 126/81 01/19/23 08:00 Pulse Ox 94 01/19/23 14:15 O2 Del Method Room Air 01/19/23 14:15 O2 Flow Rate 1 01/19/23 08:41 FiO2 35 01/18/23 20:35 01/19/23 01/19/23 01/19/23 06:59 14:59 22:59 Intake Total 530 / 530 Output Total 300 / 2800 1000 / 1000 Balance -300 / -1910 -470 / -470 Weight last 48 hrs Weight 101.605 kg Physical Exam Const: COMMON NORMALS: no acute distress and patient oriented x3 Resp: COMMON NORMALS: normal respiratory effort, No retractions and No use of accessory muscles AUSCULTATION: wheezes Cardio: COMMON NORMALS: regular rate, regular rhythm, S1 normal heart sound present and S2 normal heart sound present RATE: regular rate RHYTHM: regular rhythm HEART SOUNDS: S1 normal heart sound present and S2 normal heart sound present GI: COMMON NORMALS: Normal to inspection, nondistended, normoactive bowel sounds present and non-tender Extremity: COMMON NORMALS: no pedal edema Neuro: COMMON NORMALS: patient oriented x3 Psych: COMMON NORMALS: mental status grossly normal Urinary Catheter Management: Dykes: Cath Placed During This Visit: yes Reason for Continuing Indwelling Catheter: Acute Urinary Retention or Obstruction Urinary Catheter Date of Insertion: 01/17/23 Urinary Catheter Time of Insertion: 00:02 Data 01/19/23 05:12 01/19/23 05:12 A&P Assessment and plan (1) Shortness of breath: (2) Type 2 diabetes mellitus: (3) Systolic CHF: (4) Cannabis use disorder: (5) Methamphetamine use disorder, severe: (6) COPD (chronic obstructive pulmonary disease): (7) CHF (congestive heart failure): (8) COPD exacerbation: (9) Acute exacerbation of CHF (congestive heart failure): (10) Encounter for smoking cessation counseling: (11) Acute respiratory failure with hypoxia: (12) Decreased cardiac ejection fraction: Plan Acute hypoxic respiratory failure -Likely combination of COPD and CHF exacerbation -COPD exacerbation expand to Decadron, continue Rocephin, azithromycin DuoNeb treatments monitor respiratory status -CHF, -5L, serum sodium 129, will give him a break this morning, 1 dose of p.o. Lasix this evening 40 mg, remove Dykes catheter -Serial EKGs, troponins, telemetry monitoring -Currently room air, has wheezing on examination, advance diet as tolerated -Continue BiPAP as needed during the day, schedule during the night -Continue monitoring with telemetry on [employer] -Continue ambulation -Smoking cessation counseling -Drug cessation counseling -Continue Coreg -Diabetes, low-dose sliding scale, monitor blood sugars closely -Dykes catheter in place, to potassium, check magnesium, check creatinine -Stool softener, MiraLAX -Full code Plan for today remove Dykes catheter, 1 dose of p.o. Lasix this afternoon continue Rocephin, azithromycin, Decadron, plan on discharging her moving back to neuropsychiatric unit tomorrow Attestations Medical Necessity Statement*: Patient requires hospitalization for acute hypoxic respiratory failure secondary COPD, CHF, Diagnoses Shortness of breath R06.02 Type 2 diabetes mellitus E11.9 Systolic CHF I50.20 Cannabis use disorder F12.90 Methamphetamine use disorder, severe F15.20 COPD (chronic obstructive pulmonary disease) J44.9 CHF (congestive heart failure) I50.9 COPD exacerbation J44.1 Acute exacerbation of CHF (congestive heart failure) I50.9 Encounter for smoking cessation counseling Z71.6 Acute respiratory failure with hypoxia J96.01 Decreased cardiac ejection fraction R93.1
[2023-01-19] MEDS: FUROsemide 40 mg Tablet PO (15:37)
[2023-01-19] MEDS: ibuprofen 600 mg Tablet PO (15:37)
--- NOTE | 2023-01-19 15:47 | W.PM.NPUPNS ---
Subjective NPU Subjective: 57-year-old white male with schizoaffective disorder admitted with suicidal ideation with evidence of manic symptoms in the context of the use of methamphetamine on a daily basis for several months. He requested continued reduction in his seroquel. He reported occasional suicidal thoughts. He had reported that he needed to go to an inpatient rehabilitation facility such as [facility] to manage his addiction. He continues to report struggles with lying in bed flat and stated he was getting better here. He was seen on room air today and appeared to be struggling with breathing. He had reported that methamphetamine was going to kill if he was unable to remain sober.ar Mental Status Exam MSE Comments: Patient was lying in bed receiving a breathing treatment and was alert and oriented to person, place and time. He described his mood as depressed. His affect appeared restricted in range today and mood-congruent. He did not appear to be responding internal stimuli. There was no evidence of delusional thinking. His insight, judgment and impulse control remained poor. He had endorsed passive suicidal ideation with no active plan. He denied any homicidal ideation at this time. There was no evidence of any abnormal involuntary motor movements tics or tremors appreciated. His speech was productive with normal volume and increased rate. Vitals/I&O/Wt Last Vital Signs Temp 97.7 F 01/19/23 15:19 Pulse 77 01/19/23 15:19 Resp 18 01/19/23 15:19 BP 139/90 01/19/23 15:19 Pulse Ox 94 01/19/23 15:19 O2 Del Method Room Air 01/19/23 15:19 O2 Flow Rate 1 01/19/23 08:41 FiO2 35 01/18/23 20:35 01/19/23 01/19/23 01/19/23 06:59 14:59 22:59 Intake Total 530 / 530 Output Total 300 / 2800 1000 / 1000 Balance -300 / -1910 -470 / -470 Weight last 48 hrs Weight 101.605 kg Physical Exam Urinary Catheter Management: Dykes: Cath Placed During This Visit: yes Reason for Continuing Indwelling Catheter: Acute Urinary Retention or Obstruction Urinary Catheter Date of Insertion: 01/17/23 Urinary Catheter Time of Insertion: 00:02 Data NPU 01/19/23 05:12 01/19/23 05:12 A&P Assessment and plan (1) Schizophrenia, chronic condition: (2) Methamphetamine use disorder, severe: (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 ?1.? Will reduce seroquel 500mg at night today ?2.? Continue every 15 minute checks for safety. ?3.? Encourage individual, group and milieu therapies. ?4.? Encourage sober living treatment after discharge at the highest level of care to which he is willing to commit. 5. Will accept to NPU once medically stabilized. Involuntary Hold Information 96 Hour Hold: 96 Hour Involuntary Admission: No Attestations NPU Medical Necessity Statement*: Inpatient hospitalization is medically necessary and the clinically appropriate intervention at this time.? We will initiate medications and make changes as indicated. The patient will be on the NPU for at least 2 midnights with likely length of stay 7 to 10 days. He remains on medicine at this time due to shortness of breath. Coding Level of Care Code Acute Code for [facility] Diagnoses Schizophrenia, chronic condition F20.9 Methamphetamine use disorder, severe F15.20 Psychotic disorder due to psychoactive substance F19.959 Suicidal ideation R45.851 On combination antipsychotic drug therapy Z79.899
[2023-01-19 16:55] LABS: Glucose Point of Care 197 mg/dL (70-110)
[2023-01-19 21:16] LABS: Glucose Point of Care 189 mg/dL (70-110)
[2023-01-19] MEDS: atorvastatin 40 mg Tablet PO (21:25)
[2023-01-19] MEDS: quetiapine 100 mg Tablet 500 MG PO (21:26)
[2023-01-20] VITALS (11 sets, daily range): BP systolic 118–148; BP diastolic 78–85; PULSE 70–89; RESP 15–19; TEMP 36.3–36.8; O2SAT 90–97
[2023-01-20 05:12] LABS: Basophils % 0.3 %; Eosinophils % 0.3 %; Hematocrit 48.3 % (42.0-52.0); Lymphocytes # 1.8 10^3/uL (0.8-4.8); Lymphocytes % 13.6 %; Mean Corpuscular HGB Conc 31.1 g/dL (30.0-36.0); Mean Corpuscular Hemoglobin 28.3 pg (28.0-34.0); Mean Corpuscular Volume 91.1 fl (80-94); Monocytes # 1.1 10^3/uL (0.2-0.9); Monocytes % 8.2 %; Neutrophils # 9.89 10^3/uL (1.8-7.7); Neutrophils % 77.1 %; Nucleated Red Blood Cells % 0 %; Platelet Count 340 10^3/cmm (130-400); Red Cell Distribution Width 14.4 % (12.1-15.1); White Blood Count 12.9 10^3/uL (4.0-10.0)
[2023-01-20 05:31] LABS: Magnesium 2.5 mg/dL (1.7-2.3); Phosphorus 3.5 mg/dL (2.5-4.5)
[2023-01-20 05:39] LABS: Blood Urea Nitrogen 22 mg/dL (6-20); Calcium 8.3 mg/dL (8.5-10.5); Carbon Dioxide 30 mmol/L (22-29); Chloride 93 mmol/L (98-107); Glucose 160 mg/dL (65-115); NT Pro B Type Natriuretic Pept 632 pg/mL (0-125); Osmolality Calculated 281 mOsm/kg (285-295); Sodium 132 mmol/L (136-145)
[2023-01-20 05:44] LABS: Anion Gap 13.3 (5-19); Potassium 4.3 mmol/L (3.5-5.1)
[2023-01-20] MEDS: aspirin 81 mg EC Tablet PO (06:29)
[2023-01-20] MEDS: dexamethasone 10 mg/mL INJ 6 MG IVP (06:29)
[2023-01-20 06:46] LABS: Glucose Point of Care 214 mg/dL (70-110)
[2023-01-20] MEDS: ipratropium-albuterol 3 mL Neb INHALATION ×3 (07:37→21:03)
[2023-01-20] MEDS: gabapentin 400 mg Capsule 800 MG PO ×3 (08:33→20:37)
[2023-01-20] MEDS: thiamine 100 mg Tablet PO (08:34)
[2023-01-20] MEDS: multivitamin therapeutic Tablet 1 TAB PO (08:34)
[2023-01-20] MEDS: carvedilol 6.25 mg Tablet PO ×2 (08:34→20:37)
[2023-01-20] MEDS: azithromycin 250 mg Tablet PO (08:34)
--- NOTE | 2023-01-20 08:44 | ECG_ITS ---
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 Measurements Intervals [place] Rate: 78 P: 55 UT: 180 QRS: 0 QRSD: 101 T: 58 QT: 400 QTc: 458 Interpretive Statements SINUS RHYTHM POSSIBLE LEFT ATRIAL ENLARGEMENT [-0.1mV P-WAVE IN V1/V2] Compared to ECG 01/16/2023 22:36:46 No significant changes Electronically Signed On 01-20-2023 16:17:45 CDT by Ishmael Macias M.D. [id number]
--- NOTE | 2023-01-20 09:32 | PC.OT ---
OT EVALUATION HELD DUE TO PATIENT OFF NPU. WILL AWAIT HIS RETURN TO NPU FOR EVALUATION TO BE COMPLETED
[2023-01-20] MEDS: lactulose oral liq 20 gm/30 mL UDC PO (09:44)
[2023-01-20] MEDS: insulin lispro 100 unit/1 mL SUBCUT ×2 (09:44→13:14)
[2023-01-20] MEDS: cefTRIAXone 1,000 MG in sodium chloride 0.9% (plus) 50 ML 100 MG IV (09:46)
[2023-01-20] MEDS: docusate sodium 100 mg Capsule PO ×2 (10:15→22:19)
[2023-01-20] MEDS: FUROsemide 40 mg Tablet PO (10:15)
[2023-01-20] MEDS: potassium chloride ER 20 mEq Tablet PO (10:15)
[2023-01-20] MEDS: polyethylene glycol 3350 Pkt 17 gm PO (10:15)
[2023-01-20 10:31] LABS: Glucose Point of Care 286 mg/dL (70-110)
--- NOTE | 2023-01-20 15:49 | PC.OT ---
OT EVALUATION ORDERS RECEIVED. PATIENT IS AMBULATING Tasha IN HIS ROOM; DEMONSTRATES NO DEFICITS IN ADL AT THIS TIME. NO FURTHER SKILLED OT REQUIRED AT THIS TIME.
--- NOTE | 2023-01-20 17:10 | P.PN_ITS ---
Subjective Subjective: - Patient was seen this morning, he complains that he continues to have shortness of breath, complains of wheezing, lack of bowel movement, Vitals/I&O/Wt Last Vital Signs Temp 97.4 F L 01/20/23 13:06 Pulse 70 01/20/23 14:00 Resp 16 01/20/23 13:39 BP 130/82 01/20/23 13:06 Pulse Ox 97 01/20/23 13:39 O2 Del Method Room Air 01/20/23 13:39 O2 Flow Rate 1 01/20/23 08:00 FiO2 35 01/18/23 20:35 01/20/23 01/20/23 01/20/23 06:59 14:59 22:59 Intake Total 530 / 530 Balance 530 / 530 Weight last 48 hrs Weight 101.605 kg Physical Exam Const: COMMON NORMALS: no acute distress and patient oriented x3 Resp: COMMON NORMALS: normal respiratory effort, No retractions and No use of accessory muscles AUSCULTATION: wheezes Cardio: COMMON NORMALS: regular rate, regular rhythm, S1 normal heart sound present and S2 normal heart sound present RATE: regular rate RHYTHM: regular rhythm HEART SOUNDS: S1 normal heart sound present and S2 normal heart sound present GI: COMMON NORMALS: Normal to inspection, nondistended, normoactive bowel sounds present and non-tender Extremity: COMMON NORMALS: no pedal edema Neuro: COMMON NORMALS: patient oriented x3 Psych: COMMON NORMALS: mental status grossly normal Urinary Catheter Management: Dykes: Cath Placed During This Visit: yes Reason for Continuing Indwelling Catheter: Acute Urinary Retention or Obstru ction Urinary Catheter Date of Insertion: 01/17/23 Urinary Catheter Time of Insertion: 00:02 Data 01/20/23 04:44 01/20/23 04:44 A&P Assessment and plan (1) Shortness of breath: (2) Type 2 diabetes mellitus: (3) Systolic CHF: (4) Cannabis use disorder: (5) Methamphetamine use disorder, severe: (6) COPD (chronic obstructive pulmonary disease): (7) CHF (congestive heart failure): (8) COPD exacerbation: (9) Acute exacerbation of CHF (congestive heart failure): (10) Encounter for smoking cessation counseling: (11) Acute respiratory failure with hypoxia: (12) Decreased cardiac ejection fraction: Plan Acute hypoxic respiratory failure -Likely combination of COPD and CHF exacerbation -COPD exacerbation expand to Decadron, continue Rocephin, azithromycin DuoNeb treatments monitor respiratory status -CHF, -5L, will give him p.o. dose of Lasix today -Currently room air, has wheezing on examination, advance diet as tolerated -Continue BiPAP as needed during the day, schedule during the night -Continue monitoring with telemetry on [facility] -Continue ambulation -Smoking cessation counseling -Drug cessation counseling -Continue Coreg -Diabetes, low-dose sliding scale, monitor blood sugars closely -Dykes catheter out, to potassium, check magnesium, check creatinine -Stool softener, MiraLAX, 1 dose of MiraLAX today -Full code Plan for today up out of bed, monitor for suicidal ideation, as he reports suicidal thoughts, monitor closely, one-to-one observation, suicide precautions, bowel regimen, continue Decadron, continue antibiotics, [facility] 24 [facility] Attestations Medical Necessity Statement*: Patient requires hospitalization for acute hypoxic respiratory failure secondary COPD, CHF Diagnoses Shortness of breath R06.02 Type 2 diabetes mellitus E11.9 Systolic CHF I50.20 Cannabis use disorder F12.90 Methamphetamine use disorder, severe F15.20 COPD (chronic obstructive pulmonary disease) J44.9 CHF (congestive heart failure) I50.9 COPD exacerbation J44.1 Acute exacerbation of CHF (congestive heart failure) I50.9 Encounter for smoking cessation counseling Z71.6 Acute respiratory failure with hypoxia J96.01 Decreased cardiac ejection fraction R93.1
--- NOTE | 2023-01-20 17:20 | W.PM.NPUPNS ---
Subjective NPU Subjective: 57-year-old white male with schizoaffective disorder admitted with suicidal ideation with evidence of manic symptoms in the context of the use of methamphetamine on a daily basis for several months. He reports feeling physically better. He continued to report suicidal thoughts and stated that he remained depressed. He had reported wanting to go back to inpatient substance abuse treatment at the [facility]. He also reported desire to be tapered off of Seroquel. He appeared to be sleeping better and had not been receiving any supplemental O2 today. Mental Status Exam MSE Comments: Patient is an overweight white male lying in bed receiving a breathing treatment and was alert and oriented to person, place and time. He described his mood as depressed. His affect appeared restricted in range today and mood-congruent. He did not appear to be responding internal stimuli. There was no evidence of delusional thinking. His insight, judgment and impulse control remained poor. He had endorsed passive suicidal ideation with no active plan. He denied any homicidal ideation at this time. There was no evidence of any abnormal involuntary motor movements tics or tremors appreciated. His speech was productive with normal volume and increased rate. Vitals/I&O/Wt Last Vital Signs Temp 97.4 F L 01/20/23 13:06 Pulse 70 01/20/23 14:00 Resp 16 01/20/23 13:39 BP 130/82 01/20/23 13:06 Pulse Ox 97 01/20/23 13:39 O2 Del Method Room Air 01/20/23 13:39 O2 Flow Rate 1 01/20/23 08:00 FiO2 35 01/18/23 20:35 01/20/23 01/20/23 01/20/23 06:59 14:59 22:59 Intake Total 530 / 530 Balance 530 / 530 Weight last 48 hrs Weight 101.605 kg Physical Exam Urinary Catheter Management: Dykes: Cath Placed During This Visit: yes Reason for Continuing Indwelling Catheter: Acute Urinary Retention or Obstruction Urinary Catheter Date of Insertion: 01/17/23 Urinary Catheter Time of Insertion: 00:02 Data NPU 01/20/23 04:44 01/20/23 04:44 A&P Assessment and plan (1) Schizophrenia, chronic condition: (2) Methamphetamine use disorder, severe: (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 ?1.? Will reduce seroquel 400mg at night today ?2.? Continue every 15 minute checks for safety. ?3.? Encourage individual, group and milieu therapies. ?4.? Encourage sober living treatment after discharge at the highest level of care to which he is willing to commit. 5. Will accept to NPU once medically stabilized. Involuntary Hold Information 96 Hour Hold: 96 Hour Involuntary Admission: No Attestations NPU Medical Necessity Statement*: Inpatient hospitalization is medically necessary and the clinically appropriate intervention at this time.? We will initiate medications and make changes as indicated. The patient will be on the NPU for at least 2 midnights with likely length of stay 7 to 10 days. Awaiting transfer to unit. Coding Level of Care Code Acute Code for [facility] Diagnoses Schizophrenia, chronic condition F20.9 Methamphetamine use disorder, severe F15.20 Psychotic disorder due to psychoactive substance F19.959 Suicidal ideation R45.851 On combination antipsychotic drug therapy Z79.899
[2023-01-20 19:23] LABS: Blood Urea Nitrogen 20 mg/dL (6-20); Calcium 8.5 mg/dL (8.5-10.5); Carbon Dioxide 29 mmol/L (22-29); Chloride 91 mmol/L (98-107); Glucose 317 mg/dL (65-115); Magnesium 2.2 mg/dL (1.7-2.3); Osmolality Calculated 283 mOsm/kg (285-295); Sodium 129 mmol/L (136-145)
[2023-01-20 19:24] LABS: Anion Gap 14.1 (5-19); Potassium 5.1 mmol/L (3.5-5.1)
[2023-01-20] MEDS: atorvastatin 40 mg Tablet PO (20:38)
[2023-01-20] MEDS: quetiapine 100 mg Tablet 400 MG PO (20:38)
[2023-01-20 21:38] LABS: Glucose Point of Care 335 mg/dL (70-110)
[2023-01-21] VITALS (10 sets, daily range): BP systolic 117–156; BP diastolic 71–85; PULSE 71–98; RESP 16–19; TEMP 36.3–36.8; O2SAT 93–96
[2023-01-21] MEDS: aspirin 81 mg EC Tablet PO (05:20)
[2023-01-21] MEDS: dexamethasone 10 mg/mL INJ 6 MG IVP (05:21)
--- NOTE | 2023-01-21 05:59 | PC.NURSE ---
Patient was put on 2 litters oxymask by nurse last night 01/20 as patients O2 drops while asleep and patient refused BIPAP by RT. Patient was compliant with the oxymask until 0600 today. Patient was woke up by lab and when finished patient rolled over asked sitter Do I need this PBX REPAIRER/sitter told patient they want him to wear it as he sleeps bc his O2 drops. Patient threw mask behind him and said yea I don't need it and I've wore it all night PBX REPAIRER/1:1 at bedside monitoring patient. Patient is normally on room air when awake. Patient currently going back to sleep. Will continue monitoring safety.
[2023-01-21 06:37] LABS: Glucose Point of Care 230 mg/dL (70-110)
[2023-01-21 07:00] LABS: Basophils # 0.1 10^3/uL (0.0-0.1); Basophils % 0.4 %; Eosinophils # 0.1 10^3/uL (0.0-0.8); Eosinophils % 0.4 %; Hematocrit 46.9 % (42.0-52.0); Hemoglobin 14.9 g/dL (11.7-16.6); Lymphocytes # 2.3 10^3/uL (0.8-4.8); Lymphocytes % 18.1 %; Mean Corpuscular HGB Conc 31.8 g/dL (30.0-36.0); Mean Corpuscular Hemoglobin 28.4 pg (28.0-34.0); Mean Corpuscular Volume 89.5 fl (80-94); Mean Platelet Volume 9.1 fL (7.4-10.4); Monocytes # 0.9 10^3/uL (0.2-0.9); Neutrophils # 9.41 10^3/uL (1.8-7.7); Neutrophils % 73.2 %; Nucleated Red Blood Cells % 0 %; Platelet Count 359 10^3/cmm (130-400); Red Blood Count 5.24 10^6/uL (4.1-5.3); Red Cell Distribution Width 14.6 % (12.1-15.1); White Blood Count 12.9 10^3/uL (4.0-10.0)
[2023-01-21 07:18] LABS: Magnesium 2.4 mg/dL (1.7-2.3); Phosphorus 3.7 mg/dL (2.5-4.5)
[2023-01-21 07:29] LABS: Anion Gap 12.9 (5-19); Blood Urea Nitrogen 20 mg/dL (6-20); Calcium 8.5 mg/dL (8.5-10.5); Carbon Dioxide 30 mmol/L (22-29); Chloride 101 mmol/L (98-107); Glomerular Filtration Rate 99.6 mL/min (90-130); Glucose 143 mg/dL (65-115); NT Pro B Type Natriuretic Pept 597 pg/mL (0-125); Osmolality Calculated 293 mOsm/kg (285-295); Potassium 4.9 mmol/L (3.5-5.1); Sodium 139 mmol/L (136-145)
[2023-01-21] MEDS: doxycycline 100 mg Tablet PO ×2 (09:31→18:04)
[2023-01-21] MEDS: predniSONE 20 mg Tablet 40 MG PO (09:31)
[2023-01-21] MEDS: potassium chloride ER 20 mEq Tablet PO (09:31)
[2023-01-21] MEDS: multivitamin therapeutic Tablet 1 TAB PO (09:31)
[2023-01-21] MEDS: thiamine 100 mg Tablet PO (09:31)
[2023-01-21] MEDS: gabapentin 400 mg Capsule 800 MG PO ×3 (09:31→20:41)
[2023-01-21] MEDS: FUROsemide 40 mg Tablet PO (09:31)
[2023-01-21] MEDS: docusate sodium 100 mg Capsule PO ×2 (09:31→23:01)
[2023-01-21] MEDS: polyethylene glycol 3350 Pkt 17 gm PO (09:31)
[2023-01-21] MEDS: lactulose oral liq 20 gm/30 mL UDC PO (09:42)
[2023-01-21] MEDS: tamsulosin 0.4 mg Capsule PO (10:20)
[2023-01-21 10:58] LABS: Glucose Point of Care 303 mg/dL (70-110)
--- NOTE | 2023-01-21 17:04 | PM.PN ---
Subjective Subjective: Patient was seen this morning, he had a bowel movement his breathing is improved he is on room air, he is ready to go to the neuropsychiatric unit he tells me Vitals/I&O/Wt Last Vital Signs Temp 97.8 F 01/21/23 14:00 Pulse 71 01/21/23 14:31 Resp 18 01/21/23 14:31 BP 156/71 01/21/23 14:00 Pulse Ox 95 01/21/23 14:31 O2 Del Method Oxymask 01/21/23 14:31 O2 Flow Rate 2 01/21/23 14:31 FiO2 35 01/18/23 20:35 01/21/23 01/21/23 01/21/23 06:59 14:59 22:59 Intake Total 240 / 1610 960 / 960 Balance 240 / 1250 960 / 960 Physical Exam Const: COMMON NORMALS: no acute distress and patient oriented x3 Resp: COMMON NORMALS: normal respiratory effort, No retractions, No use of accessory muscles and clear to auscultation bilaterally AUSCULTATION: clear to auscultation bilaterally Cardio: COMMON NORMALS: regular rate, regular rhythm, S1 normal heart sound present and S2 normal heart sound present RATE: regular rate RHYTHM: regular rhythm HEART SOUNDS: S1 normal heart sound present and S2 normal heart sound present GI: COMMON NORMALS: Normal to inspection, nondistended, normoactive bowel sounds present and non-tender Extremity: COMMON NORMALS: no pedal edema Neuro: COMMON NORMALS: patient oriented x3 Psych: COMMON NORMALS: mental status grossly normal Urinary Catheter Management: Dykes: Cath Placed During This Visit: yes Reason for Continuing Indwelling Catheter: Acute Urinary Retention or Obstruction Urinary Catheter Date of Insertion: 01/17/23 Urinary Catheter Time of Insertion: 00:02 Data 01/21/23 05:54 01/21/23 05:54 A&P Assessment and plan (1) Shortness of breath: (2) Type 2 diabetes mellitus: (3) Systolic CHF: (4) Cannabis use disorder: (5) Methamphetamine use disorder, severe: (6) COPD (chronic obstructive pulmonary disease): (7) CHF (congestive heart failure): (8) COPD exacerbation: (9) Acute exacerbation of CHF (congestive heart failure): (10) Encounter for smoking cessation counseling: (11) Acute respiratory failure with hypoxia: (12) Decreased cardiac ejection fraction: Plan Acute hypoxic respiratory failure -Likely combination of COPD and CHF exacerbation -COPD exacerbation expand to Decadron, continue Rocephin, azithromycin DuoNeb treatments monitor respiratory status -CHF, -5L, will give him p.o. dose of Lasix today -Currently room air, has wheezing on examination, advance diet as tolerated -Continue BiPAP as needed during the day, schedule during the night -Continue monitoring with telemetry on MedSurg -Continue ambulation -Smoking cessation counseling -Drug cessation counseling -Continue Coreg -Diabetes, low-dose sliding scale, monitor blood sugars closely -Dykes catheter out, to potassium, check magnesium, check creatinine -Stool softener, MiraLAX, 1 dose of MiraLAX today -Full code Plan for today up out of bed, monitor for suicidal ideation, as he reports suicidal thoughts, monitor closely, one-to-one observation, suicide precautions, bowel regimen, continue Decadron, continue antibiotics, plan on moving to neuropsychiatric today, spoke to psychiatry Attestations Medical Necessity Statement*: Patient requires hospitalization for respiratory failure, COPD, CHF, will move to neuropsychiatric unit today and High MDM includes number and complexity of problems actively addressed during encounter, amount and/or complexity of data reviewed/ordered and described risk of complication, morbidity or mortality of management as documented Diagnoses Shortness of breath R06.02 Type 2 diabetes mellitus E11.9 Systolic CHF I50.20 Cannabis use disorder F12.90 Methamphetamine use disorder, severe F15.20 COPD (chronic obstructive pulmonary disease) J44.9 CHF (congestive heart failure) I50.9 COPD exacerbation J44.1 Acute exacerbation of CHF (congestive heart failure) I50.9 Encounter for smoking cessation counseling Z71.6 Acute respiratory failure with hypoxia J96.01 Decreased cardiac ejection fraction R93.1
--- NOTE | 2023-01-21 18:05 | P.NPUPN_ITS ---
Subjective NPU Subjective: 57-year-old white male with schizoaffective disorder admitted with suicidal ideation with evidence of manic symptoms in the context of the use of methamphetamine on a daily basis for several months. He had reported continued depressed mood. He had stated that he was concerned about using methamphetamine again. He had reported that he desired inpatient substance abuse treatment through [facility]. He had reported difficulties with falling asleep with the tapering of Seroquel. Mental Status Exam MSE Comments: Patient is an overweight white male lying in bed receiving a breathing moraima atment and was alert and oriented to person, place and time. He described his mood as depressed. His affect appeared restricted in range today and mood- congruent. He did not appear to be responding internal stimuli. There was no evidence of delusional thinking. His insight, judgment and impulse control remained poor. He denied any suicidal or homicidal ideation today. There was no evidence of any abnormal involuntary motor movements tics or tremors appreciated. His speech was productive with normal volume and increased rate. Vitals/I&O/Wt Last Vital Signs Temp 97.8 F 01/21/23 14:00 Pulse 71 01/21/23 14:31 Resp 18 01/21/23 14:31 BP 156/71 01/21/23 14:00 Pulse Ox 95 01/21/23 14:31 O2 Del Method Oxymask 01/21/23 14:31 O2 Flow Rate 2 01/21/23 14:31 FiO2 35 01/18/23 20:35 01/21/23 01/21/23 01/21/23 06:59 14:59 22:59 Intake Total 240 / 1610 960 / 960 Balance 240 / 1250 960 / 960 Physical Exam Urinary Catheter Management: Dykes: Cath Placed During This Visit: yes Reason for Continuing Indwelling Catheter: Acute Urinary Retention or Obstruction Urinary Catheter Date of Insertion: 01/17/23 Urinary Catheter Time of Insertion: 00:02 Data NPU 01/21/23 05:54 01/21/23 05:54 A&P Assessment and plan (1) Schizophrenia, chronic condition: (2) Methamphetamine use disorder, severe: (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 ?1.? Will reduce seroquel 350mg at night today ?2.? Continue every 15 minute checks for safety. ?3.? Encourage individual, group and milieu therapies. ?4.? Encourage sober living treatment after discharge at the highest level of care to which he is willing to commit. 5. Will accept to NPU once medically stabilized. Involuntary Hold Information 96 Hour Hold: 96 Hour Involuntary Admission: No Attestations NPU Medical Necessity Statement*: Inpatient hospitalization is medically necessary and the clinically appropriate intervention at this time.? We will initiate medications and make changes as indicated. The patient will be on the NPU for at least 2 midnights with likely length of stay 7 to 10 days after arriving. Awaiting transfer to unit. Coding Level of Care Code Acute Code for [facility] Diagnoses Schizophrenia, chronic condition F20.9 Methamphetamine use disorder, severe F15.20 Psychotic disorder due to psychoactive substance F19.959 Suicidal ideation R45.851 On combination antipsychotic drug therapy Z79.899
[2023-01-21] MEDS: insulin lispro 100 unit/1 mL SUBCUT (18:14)
[2023-01-21] MEDS: carvedilol 6.25 mg Tablet PO (20:40)
[2023-01-21] MEDS: atorvastatin 40 mg Tablet PO (20:41)
[2023-01-21] MEDS: quetiapine 100 mg Tablet 350 MG PO (20:41)
[2023-01-21 20:54] LABS: Glucose Point of Care 319 mg/dL (70-110)
[2023-01-22] VITALS (10 sets, daily range): BP systolic 119–149; BP diastolic 80–99; PULSE 58–86; RESP 14–20; TEMP 36.3–37.1; O2SAT 94–99
[2023-01-22] MEDS: aspirin 81 mg EC Tablet PO (05:29)
[2023-01-22 05:36] LABS: Basophils # 0.1 10^3/uL (0.0-0.1); Basophils % 0.3 %; Eosinophils % 0.1 %; Hematocrit 47.3 % (42.0-52.0); Hemoglobin 15.1 g/dL (11.7-16.6); Lymphocytes # 2.3 10^3/uL (0.8-4.8); Lymphocytes % 15.4 %; Mean Corpuscular HGB Conc 31.9 g/dL (30.0-36.0); Mean Corpuscular Hemoglobin 28.6 pg (28.0-34.0); Mean Corpuscular Volume 89.6 fl (80-94); Mean Platelet Volume 8.9 fL (7.4-10.4); Monocytes % 6.8 %; Neutrophils # 11.65 10^3/uL (1.8-7.7); Neutrophils % 76.4 %; Nucleated Red Blood Cells % 0 %; Platelet Count 343 10^3/cmm (130-400); Red Blood Count 5.28 10^6/uL (4.1-5.3); Red Cell Distribution Width 14.5 % (12.1-15.1); White Blood Count 15.2 10^3/uL (4.0-10.0)
[2023-01-22 06:00] LABS: Magnesium 2.2 mg/dL (1.7-2.3); Phosphorus 3.6 mg/dL (2.5-4.5)
[2023-01-22 06:30] LABS: NT Pro B Type Natriuretic Pept 720 pg/mL (0-125)
[2023-01-22 06:31] LABS: Anion Gap 14.3 (5-19); Blood Urea Nitrogen 25 mg/dL (6-20); Calcium 9.1 mg/dL (8.5-10.5); Carbon Dioxide 28 mmol/L (22-29); Chloride 96 mmol/L (98-107); Glomerular Filtration Rate 99.6 mL/min (90-130); Glucose 164 mg/dL (65-115); Osmolality Calculated 286 mOsm/kg (285-295); Potassium 4.3 mmol/L (3.5-5.1); Sodium 134 mmol/L (136-145)
[2023-01-22 08:14] LABS: Glucose Point of Care 183 mg/dL (70-110)
[2023-01-22] MEDS: insulin lispro 100 unit/1 mL SUBCUT ×3 (08:34→17:18)
[2023-01-22] MEDS: doxycycline 100 mg Tablet PO ×2 (08:35→17:19)
[2023-01-22] MEDS: predniSONE 20 mg Tablet 40 MG PO (08:35)
[2023-01-22] MEDS: FUROsemide 40 mg Tablet PO (08:35)
[2023-01-22] MEDS: thiamine 100 mg Tablet PO (08:35)
[2023-01-22] MEDS: gabapentin 400 mg Capsule 800 MG PO ×3 (08:35→21:01)
[2023-01-22] MEDS: carvedilol 6.25 mg Tablet PO ×2 (08:36→21:01)
[2023-01-22] MEDS: tamsulosin 0.4 mg Capsule PO (08:36)
[2023-01-22] MEDS: potassium chloride ER 20 mEq Tablet PO (08:36)
[2023-01-22] MEDS: multivitamin therapeutic Tablet 1 TAB PO (08:36)
[2023-01-22] MEDS: docusate sodium 100 mg Capsule PO ×2 (10:38→21:02)
[2023-01-22] MEDS: polyethylene glycol 3350 Pkt 17 gm PO (10:38)
[2023-01-22 11:38] LABS: Glucose Point of Care 245 mg/dL (70-110)
--- NOTE | 2023-01-22 15:30 | W.PM.NPUPNS ---
Subjective NPU Subjective: 57-year-old white male with schizoaffective disorder admitted with suicidal ideation with evidence of manic symptoms in the context of the use of methamphetamine on a daily basis for several months. Patient again reiterated that he needed to have some help with medications to help him sleep. Patient again appeared unwilling to acknowledge that he may have had a primary sleep disorder. He had reported that he needed to avoid methamphetamine use and wanted to go to inpatient rehabilitation at the [facility]. He had reported difficulties with falling asleep with the tapering of Seroquel. He had reported occasional suicidal thoughts. He had also reported some depression. Mental Status Exam MSE Comments: Patient is an overweight white male lying in bed on room air. He was alert and oriented person place and time. He described his mood as depressed. His affect appeared restricted in range today and mood-congruent. He did not appear to be responding internal stimuli. There was no evidence of delusional thinking. He denied any suicidal or homicidal ideation today. There was no evidence of any abnormal involuntary motor movements tics or tremors appreciated. His speech was productive with normal volume and increased rate. His insight is limited. His judgment is fair. His impulse control appeared poor. Vitals/I&O/Wt Last Vital Signs Temp 97.6 F 01/22/23 16:51 Pulse 85 01/22/23 16:51 Resp 18 01/22/23 16:51 BP 149/87 01/22/23 16:51 Pulse Ox 96 01/22/23 16:51 O2 Del Method Room Air 01/22/23 16:51 O2 Flow Rate 2 01/21/23 20:00 FiO2 35 01/18/23 20:35 01/22/23 01/22/23 01/22/23 06:59 14:59 22:59 Intake Total 960 / 960 Balance 960 / 960 Physical Exam Urinary Catheter Management: Dykes: Cath Placed During This Visit: yes Reason for Continuing Indwelling Catheter: Acute Urinary Retention or Obstruction Urinary Catheter Date of Insertion: 01/17/23 Urinary Catheter Time of Insertion: 00:02 Data NPU 01/22/23 05:09 01/22/23 05:09 A&P Assessment and plan (1) Schizophrenia, chronic condition: (2) Methamphetamine use disorder, severe: (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 ?1.? Will reduce seroquel 300mg at night today ?2.? Continue every 15 minute checks for safety. ?3.? Encourage individual, group and milieu therapies. ?4.? Encourage sober living treatment after discharge at the highest level of care to which he is willing to commit. 5. Will accept to NPU today. Involuntary Hold Information 96 Hour Hold: 96 Hour Involuntary Admission: No Attestations NPU Medical Necessity Statement*: Inpatient hospitalization is medically necessary and the clinically appropriate intervention at this time.? We will initiate medications and make changes as indicated. The patient will be on the NPU for at least 2 midnights with likely length of stay 7 to 10 days after arriving. Awaiting transfer to unit. Coding Level of Care Code Acute Code for [facility] Diagnoses Schizophrenia, chronic condition F20.9 Methamphetamine use disorder, severe F15.20 Psychotic disorder due to psychoactive substance F19.959 Suicidal ideation R45.851 On combination antipsychotic drug therapy Z79.899
--- NOTE | 2023-01-22 16:12 | PC.NURSE ---
report called to ken SORIANO in NPU for pt tx to first floor
[2023-01-22 16:47] LABS: Glucose Point of Care 324 mg/dL (70-110)
--- NOTE | 2023-01-22 16:54 | PM.PN ---
Subjective Subjective: - Patient was seen this morning, -He has no complaints, he is awaiting n.p.u. bed -Reviewed white count 15.2, likely secondary to steroids, afebrile overnight -Blood sugars 356 Vitals/I&O/Wt Last Vital Signs Temp 97.6 F 01/22/23 16:51 Pulse 85 01/22/23 16:51 Resp 18 01/22/23 16:51 BP 149/87 01/22/23 16:51 Pulse Ox 96 01/22/23 16:51 O2 Del Method Room Air 01/22/23 16:51 O2 Flow Rate 2 01/21/23 20:00 FiO2 35 01/18/23 20:35 01/22/23 01/22/23 01/22/23 06:59 14:59 22:59 Intake Total 960 / 960 Balance 960 / 960 Physical Exam Const: COMMON NORMALS: no acute distress and patient oriented x3 Resp: COMMON NORMALS: normal respiratory effort, No retractions, No use of accessory muscles and clear to auscultation bilaterally AUSCULTATION: clear to auscultation bilaterally Cardio: COMMON NORMALS: regular rate, regular rhythm, S1 normal heart sound present and S2 normal heart sound present RATE: regular rate RHYTHM: regular rhythm HEART SOUNDS: S1 normal heart sound present and S2 normal heart sound present GI: COMMON NORMALS: Normal to inspection, nondistended, normoactive bowel sounds present and non-tender Extremity: COMMON NORMALS: no pedal edema Neuro: COMMON NORMALS: patient oriented x3 Psych: COMMON NORMALS: mental status grossly normal Urinary Catheter Management: Dykes: Cath Placed During This Visit: yes Reason for Continuing Indwelling Catheter: Acute Urinary Retention or Obstruction Urinary Catheter Date of Insertion: 01/17/23 Urinary Catheter Time of Insertion: 00:02 Data 01/22/23 05:09 01/22/23 05:09 A&P Assessment and plan (1) Shortness of breath: (2) Type 2 diabetes mellitus: (3) Systolic CHF: (4) Cannabis use disorder: (5) Methamphetamine use disorder, severe: (6) COPD (chronic obstructive pulmonary disease): (7) CHF (congestive heart failure): (8) COPD exacerbation: (9) Acute exacerbation of CHF (congestive heart failure): (10) Encounter for smoking cessation counseling: (11) Acute respiratory failure with hypoxia: (12) Decreased cardiac ejection fraction: Plan Acute hypoxic respiratory failure -Likely combination of COPD and CHF exacerbation -COPD exacerbation expand to Decadron, continue Rocephin, azithromycin DuoNeb treatments monitor respiratory status -CHF, -5L, continue p.o. Lasix -Currently room air, has wheezing on examination, advance diet as tolerated -Continue BiPAP as needed during the day, schedule during the night -Continue monitoring with telemetry on MedSurg -Continue ambulation -Smoking cessation counseling -Drug cessation counseling -Continue Coreg -Diabetes, low-dose sliding scale, blood sugars remain elevated add Lantus 10 units at bedtime -Monitor potassium, check magnesium, check creatinine -Stool softener, MiraLAX, 1 dose of MiraLAX today -Full code Plan for today up out of bed, monitor for suicidal ideation, as he reports suicidal thoughts, monitor closely, one-to-one observation, suicide precautions, bowel regimen, continue prednisone, continue doxycycline, continue antibiotics, plan on moving to neuropsychiatric today, spoke to psychiatry, in addition I am going to add Lantus 10 units at bedtime due to persistent hyperglycemia Attestations Medical Necessity Statement*: Patient requires hospitalization due to acute hypoxic respiratory failure, hyperglycemia Diagnoses Shortness of breath R06.02 Type 2 diabetes mellitus E11.9 Systolic CHF I50.20 Cannabis use disorder F12.90 Methamphetamine use disorder, severe F15.20 COPD (chronic obstructive pulmonary disease) J44.9 CHF (congestive heart failure) I50.9 COPD exacerbation J44.1 Acute exacerbation of CHF (congestive heart failure) I50.9 Encounter for smoking cessation counseling Z71.6 Acute respiratory failure with hypoxia J96.01 Decreased cardiac ejection fraction R93.1
[2023-01-22 17:15] LABS: Glucose Point of Care 356 mg/dL (70-110)
--- NOTE | 2023-01-22 20:52 | PC.NURSE ---
PT DENIES SI/HI AND AVH AT THIS TIME. DENIES PAIN. PT ON PHONE. VERY TALKATIVE. WANTS TO BE OFF HIS SEROQUEL COMPLETEY. THIS RN EDUCATED PT THAT THE SEROQUEL WAS DECREASED. PT IS PLEASED. CONTINUES TO WALK HALLS WHEN OFF PHONE.
[2023-01-22 21:01] LABS: Glucose Point of Care 344 mg/dL (70-110)
[2023-01-22] MEDS: insulin glargine 100 units/1 mL 5 UNIT SUBCUT (21:01)
[2023-01-22] MEDS: quetiapine 300 mg Tablet PO (21:01)
[2023-01-22] MEDS: atorvastatin 40 mg Tablet PO (21:01)
--- NOTE | 2023-01-23 02:47 | PC.NURSE ---
PT DECLINES TO WEAR CPAP ORDERED THROUGHOUT THE NIGHT. PT STATES ITS TOO MUCH AIR AND I JUST CAN'T TAKE IT. I'VE TOLD THAT DOCTOR EVERYDAY I SEE HIM THAT I'M NOT WEARING IT SO STOP ASKING ME. PT WAS EDUCATED ON CPAP AND THE POSITIVE BENEFITS OF WEARING IT ORDERED, BUT PT CONTINUES TO DECLINE TO WEAR IT. SPOZ CHECKED PRIOR TO GOING TO BED AT 2200 AND IT WAS 94% ON RA. SPOT CHECK COMPLETED RANDOMLY ON PT AT 0230 AND SPO2 WAS 93% ON RA. NO DISTRESS WAS NOTED. RESPIRATIONS ARE EVEN AND UNLABORED. PT HAS WEDGE PLACED UNDER MATTRESS TO PROMOTE ADEQUATE BREATHING.
[2023-01-23 06:00] VITALS: BP 143/76; PULSE 82; RESP 16; O2SAT 95
--- NOTE | 2023-01-23 08:10 | PC.NURSE ---
Patient reports anxiety depression, all of the time. Patient states that he lives with depression. He also reports thoughts of self-harm, but denies a plant. He does have auditory hallucinations, telling him bad stuff
[2023-01-23 08:39] LABS: Glucose Point of Care 212 mg/dL (70-110)
[2023-01-23 08:56] VITALS: BP 138/94
[2023-01-23] MEDS: losartan 50 mg Tablet 25 MG PO (08:56)
[2023-01-23] MEDS: carvedilol 6.25 mg Tablet PO ×2 (08:59→20:50)
[2023-01-23] MEDS: aspirin 81 mg EC Tablet PO (08:59)
[2023-01-23] MEDS: multivitamin therapeutic Tablet 1 TAB PO (08:59)
[2023-01-23] MEDS: tamsulosin 0.4 mg Capsule PO (08:59)
[2023-01-23] MEDS: doxycycline 100 mg Tablet PO ×2 (08:59→17:50)
[2023-01-23] MEDS: predniSONE 20 mg Tablet 40 MG PO (08:59)
[2023-01-23] MEDS: gabapentin 400 mg Capsule 800 MG PO ×3 (08:59→20:50)
[2023-01-23] MEDS: thiamine 100 mg Tablet PO (08:59)
[2023-01-23] MEDS: docusate sodium 100 mg Capsule PO ×2 (09:06→20:51)
[2023-01-23] MEDS: insulin lispro 100 unit/1 mL SUBCUT ×3 (09:06→17:58)
[2023-01-23] MEDS: potassium chloride ER 20 mEq Tablet PO (09:07)
[2023-01-23] MEDS: FUROsemide 40 mg Tablet PO (09:07)
[2023-01-23 09:23] LABS: Basophils # 0.1 10^3/uL (0.0-0.1); Basophils % 0.5 %; Eosinophils # 0.1 10^3/uL (0.0-0.8); Eosinophils % 0.5 %; Hematocrit 48.8 % (42.0-52.0); Hemoglobin 15.4 g/dL (11.7-16.6); Lymphocytes # 3.8 10^3/uL (0.8-4.8); Lymphocytes % 26.3 %; Mean Corpuscular HGB Conc 31.6 g/dL (30.0-36.0); Mean Corpuscular Hemoglobin 28.3 pg (28.0-34.0); Mean Corpuscular Volume 89.7 fl (80-94); Monocytes # 1.1 10^3/uL (0.2-0.9); Monocytes % 7.4 %; Neutrophils # 9.12 10^3/uL (1.8-7.7); Neutrophils % 63.4 %; Nucleated Red Blood Cells % 0 %; Platelet Count 370 10^3/cmm (130-400); Red Blood Count 5.44 10^6/uL (4.1-5.3); Red Cell Distribution Width 14.7 % (12.1-15.1); White Blood Count 14.4 10^3/uL (4.0-10.0)
[2023-01-23 09:51] LABS: Anion Gap 16.5 (5-19); Blood Urea Nitrogen 23 mg/dL (6-20); Calcium 8.8 mg/dL (8.5-10.5); Carbon Dioxide 26 mmol/L (22-29); Chloride 97 mmol/L (98-107); Glucose 237 mg/dL (65-115); NT Pro B Type Natriuretic Pept 525 pg/mL (0-125); Osmolality Calculated 291 mOsm/kg (285-295); Potassium 4.5 mmol/L (3.5-5.1); Sodium 135 mmol/L (136-145)
[2023-01-23 13:27] LABS: Glucose Point of Care 306 mg/dL (70-110)
--- NOTE | 2023-01-23 13:56 | W.PM.NPUPNS ---
Subjective NPU Subjective: Patient presented today reporting that he is doing okay. He understood the plan of decreasing his Seroquel and acknowledge the problem of his continued drug use. We talked about his interest in returning to [facility] but [facility] reporting that they would not have a bed anytime soon. He is talking to a group and has turned in information for [facility], but he is worried that he will not be able to afford it. We discussed continue to work with the social work team for options because staying inpatient long-term is not an option and waiting for [facility] is also not possible at this time. He reports that he is feeling less energy but continued to have psychomotor agitation consistent with methamphetamine abuse per staff. Mental Status Exam MSE Comments: This is an obese white male in hospital scrubs with limited grooming and adequate eye contact. No abnormal movements except for mild psychomotor agitation. Cooperative with exam in mild distress. Speech was slightly decreased rate and volume. Mood described as doing okay and hopeful, affect fidgety. Thought process organized, thought content: patient denies suicidal or homicidal ideation, there were no delusions reported or noted, he denied any auditory or visual hallucinations. Attention and concentration were intact and memory appeared unreliable but none were formally tested. He is alert and oriented times three. Insight and judgment appeared limited and impulse control appeared impaired. Vitals/I&O/Wt Last Vital Signs Temp 97.6 F 01/22/23 16:51 Pulse 82 01/23/23 06:00 Resp 16 01/23/23 06:00 BP 138/94 01/23/23 08:56 Pulse Ox 95 01/23/23 06:00 O2 Del Method Room Air 01/22/23 16:51 O2 Flow Rate 2 01/23/23 08:00 FiO2 35 01/18/23 20:35 01/22/23 01/23/23 01/23/23 22:59 06:59 14:59 Intake Total 0 / 960 Output Total 660 / 660 Balance -660 / 300 Physical Exam Urinary Catheter Management: Dykes: Cath Placed During This Visit: yes Reason for Continuing Indwelling Catheter: Acute Urinary Retention or Obstruction Urinary Catheter Date of Insertion: 01/17/23 Urinary Catheter Time of Insertion: 00:02 Data NPU 01/23/23 09:12 01/23/23 09:12 A&P Assessment and plan (1) Schizophrenia, chronic condition: (2) Methamphetamine use disorder, severe: (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 ?1.? Will reduce seroquel 300mg at night ?2.? Continue every 15 minute checks for safety. ?3.? Encourage individual, group and milieu therapies. ?4.? Encourage sober living treatment after discharge at the highest level of care to which he is willing to commit. We will work to get him set up for inpatient follow-up but we will have to likely get him some mcc or other living arrangement while he awaits a bed. Involuntary Hold Information 96 Hour Hold: 96 Hour Involuntary Admission: No Attestations NPU Medical Necessity Statement*: Inpatient hospitalization is medically necessary and the clinically appropriate intervention at this time.? We will initiate medications and make changes as indicated. Likely length of stay 7 to 10 days. Coding Level of Care Code Acute Code for [facility] Diagnoses Schizophrenia, chronic condition F20.9 Methamphetamine use disorder, severe F15.20 Psychotic disorder due to psychoactive substance F19.959 Suicidal ideation R45.851 On combination antipsychotic drug therapy Z79.899
[2023-01-23 14:00] VITALS: BP 143/89; PULSE 87; RESP 17; TEMP 36.6; O2SAT 95
[2023-01-23 14:42] LABS: Glucose Point of Care 365 mg/dL (70-110)
[2023-01-23 17:25] LABS: Glucose Point of Care 282 mg/dL (70-110)
--- NOTE | 2023-01-23 18:37 | PM.PN ---
Subjective Subjective: - Patient was seen this afternoon, he has no complaints, no shortness of breath, no chest pain, no abdominal pain -He does tell me that his blood sugars have been higher Vitals/I&O/Wt Last Vital Signs Temp 97.9 F 01/23/23 14:00 Pulse 87 01/23/23 14:00 Resp 17 01/23/23 14:00 BP 143/89 01/23/23 14:00 Pulse Ox 95 01/23/23 14:00 O2 Del Method Room Air 01/22/23 16:51 O2 Flow Rate 2 01/23/23 08:00 FiO2 35 01/18/23 20:35 Physical Exam Const: COMMON NORMALS: no acute distress and patient oriented x3 Resp: COMMON NORMALS: normal respiratory effort, No retractions, No use of accessory muscles and clear to auscultation bilaterally AUSCULTATION: clear to auscultation bilaterally Cardio: COMMON NORMALS: regular rate, regular rhythm, S1 normal heart sound present and S2 normal heart sound present RATE: regular rate RHYTHM: regular rhythm HEART SOUNDS: S1 normal heart sound present and S2 normal heart sound present GI: COMMON NORMALS: Normal to inspection, nondistended, normoactive bowel sounds present and non-tender Extremity: COMMON NORMALS: no pedal edema Neuro: COMMON NORMALS: patient oriented x3 Psych: COMMON NORMALS: mental status grossly normal Urinary Catheter Management: Dykes: Cath Placed During This Visit: yes Reason for Continuing Indwelling Catheter: Acute Urinary Retention or Obstruction Urinary Catheter Date of Insertion: 01/17/23 Urinary Catheter Time of Insertion: 00:02 Data 01/23/23 09:12 01/23/23 09:12 A&P Assessment and plan (1) Shortness of breath: (2) Type 2 diabetes mellitus: (3) Systolic CHF: (4) Cannabis use disorder: (5) Methamphetamine use disorder, severe: (6) COPD (chronic obstructive pulmonary disease): (7) CHF (congestive heart failure): (8) COPD exacerbation: (9) Acute exacerbation of CHF (congestive heart failure): (10) Encounter for smoking cessation counseling: (11) Acute respiratory failure with hypoxia: (12) Decreased cardiac ejection fraction: Plan Acute hypoxic respiratory failure -Likely combination of COPD and CHF exacerbation -COPD exacerbation expand to Decadron, continue Rocephin, azithromycin DuoNeb treatments monitor respiratory status -CHF, -5L, continue p.o. Lasix 40 mg daily with potassium replacement -Currently room air, has wheezing on examination, advance diet as tolerated -Continue BiPAP as needed during the day, schedule during the night -Continue monitoring in neuropsychiatric unit -Continue ambulation -Smoking cessation counseling -Drug cessation counseling -Continue Coreg -Diabetes, low-dose sliding scale, blood sugars remain elevated add Lantus 10 units at bedtime -Monitor potassium, check magnesium, check creatinine -Stool softener, MiraLAX, 1 dose of MiraLAX today -Full code Plan for today increase Lantus to 10 units at bedtime, CBC interpreted, BMP interpreted, leukocytosis, 14.3, likely steroids monitor Attestations Medical Necessity Statement*: Patient requires hospitalization, currently in neuropsychiatric unit, requiring diuresis, blood sugar monitoring, steroid therapy, antibiotic therapy Diagnoses Shortness of breath R06.02 Type 2 diabetes mellitus E11.9 Systolic CHF I50.20 Cannabis use disorder F12.90 Methamphetamine use disorder, severe F15.20 COPD (chronic obstructive pulmonary disease) J44.9 CHF (congestive heart failure) I50.9 COPD exacerbation J44.1 Acute exacerbation of CHF (congestive heart failure) I50.9 Encounter for smoking cessation counseling Z71.6 Acute respiratory failure with hypoxia J96.01 Decreased cardiac ejection fraction R93.1
[2023-01-23 20:08] LABS: Glucose Point of Care 306 mg/dL (70-110)
[2023-01-23 20:50] VITALS: BP 146/92; PULSE 92; RESP 20; TEMP 36.4; O2SAT 94
[2023-01-23] MEDS: quetiapine 300 mg Tablet PO (20:50)
[2023-01-23] MEDS: atorvastatin 40 mg Tablet PO (20:50)
[2023-01-23] MEDS: insulin glargine 100 units/1 mL 10 UNIT SUBCUT (20:51)
--- NOTE | 2023-01-23 21:17 | PC.NURSE ---
PT DENIES PAIN AND SI/HI AT THIS TME. DOES ENDORSE HEARING VOICES THAT ARE BAD ALL THE TIME, ESPECIALLY THROUGHOUT THE NIGHT. PT DENIES VH BUT STATES HE HAS HEARD VOICES SINCE HE WAS 4 YEARS OLD THAT HAVE ALWAYS BEEN NEGATIVE IN NATURE. PT REPORTS HE IS SOB, IT IS VERY HUMID ON THE GUNTER AND IN HIS ROOM. SPO2 IS 94% ON RA. DID CONTACT RT. REVIEWED CHART AND THERE ARE CURRENTLY NO ORDERS FOR BREATHING TREATMENTS. PT STATES HE WAS GETTING THEM IN ICU. PT EDUCATED THAT THE ORDERS HAD BEEN DISCONTINUED BUT IF RT ASSESSES AND STATES HE NEEDS A BREATHING TREATMENT THIS RN WILL GET THE ORDERS. PT IS IN AGREEMENT. PT IS IN NO DISTRESS. LUNGS WITH EXPIRATORY WHEEZES IN UPPER BILAT LOBES AND DIMINISHED IN THE BASES. PT IS STILL REQUESTING HIS SEROQUEL BE DECREASED. EDUCATED PT THAT ANY REDUCTION OF ANY PSYCH MEDICATION IS USUALLY WEANED DOWN GRADULALLY. PT VERBALIZED UNDERSTANDING. ALL QUESTIONS ANSWERED AND SUPPORT VOICED.
--- NOTE | 2023-01-24 03:30 | PC.NURSE ---
PT IN BED SLEEPING SINCE 2229. RESPIRATORY THERAPY HAS NOT COME TO UNIT TO COMPLETE BREATHING TREATMENT. SPO2 CONTINUES TO BE 94% ON RA AND NO RESPIRATORY DISTRESS IS OBSERVED. NOTIFIED PT THAT THIS RN WILL CALL AGAIN, PT STATED TO WAIT TIL MORNING. PT WENT BACK TO SLEEP AND IS CURRENTLY RESTING WITH EYES CLOSED.
--- NOTE | 2023-01-24 03:33 | PC.NURSE ---
PT HAS ORDER TO WEAR CPAP AT HS. PT CONTINUES TO DECLINE WEARING CPAP AT HS. PT STATES, I'M NOT WEARING IT, ITS TOO MUCH AIR AND I DON'T LIKE IT OVER MY FACE. PT WAS EDUCATED ON BENEFITS, PT STATED I KNOW I KNOW YOU TOLD ME YESTERDAY. PT VERBALIZED UNDERSTANDING AND WENT TO BED. PT ALSO HAS A 1200 ML FLUID RESTRICTION THAT HE REFUSES TO ADHERE TO DESPITE EDUCATION AT THE BEGINNING OF SHIFT. PT HAS BEEN DRINKING MUCH HE WANTS REGARDLESS OF EDUCATION ON POSSIBLE FLUID OVERLOAD. PT STATED NO ONE TOLD ME THAT. WILL UPDATE NURSING STAFF TO ENCOURAGE PT COMPLYING WITH 1200 ML FLUID RESTRICTION.
--- NOTE | 2023-01-24 04:35 | PC.NURSE ---
RESPIRATORY THERAPISTS HERE TO COMPLETE BREATHING TREATMENT REQUESTED AT 1999, AT BEGINNING OF SHIFT. RT STATES, PT IS BREATHING FINE, BREATHING TREATMENT NOT NEEDED AT THIS TIME.
[2023-01-24 06:00] VITALS: BP 137/83; PULSE 67; RESP 20; TEMP 36.7; O2SAT 98
[2023-01-24 07:34] LABS: Glucose Point of Care 133 mg/dL (70-110)
[2023-01-24] MEDS: doxycycline 100 mg Tablet PO ×2 (08:59→20:46)
[2023-01-24] MEDS: tamsulosin 0.4 mg Capsule PO (08:59)
[2023-01-24] MEDS: FUROsemide 40 mg Tablet PO (08:59)
[2023-01-24] MEDS: losartan 50 mg Tablet 25 MG PO (09:00)
[2023-01-24] MEDS: aspirin 81 mg EC Tablet PO (09:00)
[2023-01-24] MEDS: thiamine 100 mg Tablet PO (09:01)
[2023-01-24] MEDS: multivitamin therapeutic Tablet 1 TAB PO (09:01)
[2023-01-24] MEDS: potassium chloride ER 20 mEq Tablet PO (09:01)
[2023-01-24] MEDS: predniSONE 20 mg Tablet 40 MG PO (09:01)
[2023-01-24] MEDS: carvedilol 6.25 mg Tablet PO ×2 (09:03→20:46)
[2023-01-24] MEDS: gabapentin 400 mg Capsule 800 MG PO ×3 (09:03→20:46)
[2023-01-24] MEDS: docusate sodium 100 mg Capsule PO ×2 (11:18→20:46)
[2023-01-24 12:08] LABS: Glucose Point of Care 270 mg/dL (70-110)
[2023-01-24] MEDS: insulin lispro 100 unit/1 mL SUBCUT (12:18)
[2023-01-24] MEDS: acetaminophen 325 mg Tablet 650 MG PO (13:26)
[2023-01-24 13:51] LABS: Glucose Point of Care 350 mg/dL (70-110)
[2023-01-24 14:00] VITALS: BP 130/77; PULSE 75; RESP 18; TEMP 36.6; O2SAT 93
[2023-01-24 15:19] LABS: Glucose Point of Care 329 mg/dL (70-110)
[2023-01-24] MEDS: lactulose oral liq 20 gm/30 mL UDC PO (16:33)
--- NOTE | 2023-01-24 17:14 | P.PN_ITS ---
Subjective Subjective: Patient was seen this morning, denies any lightheadedness, dizziness, no nausea, vomiting, Vitals/I&O/Wt Last Vital Signs Temp 98 F 01/24/23 14:00 Pulse 75 01/24/23 14:00 Resp 18 01/24/23 14:00 BP 130/77 01/24/23 14:00 Pulse Ox 93 01/24/23 14:00 O2 Del Method Room Air 01/24/23 14:00 O2 Flow Rate 2 01/23/23 08:00 FiO2 35 01/18/23 20:35 Weight last 48 hrs Weight 111.674 kg Physical Exam Const: COMMON NORMALS: no acute distress and patient oriented x3 Resp: COMMON NORMALS: normal respiratory effort, No retractions, No use of accessory muscles and clear to auscultation bilaterally AUSCULTATION: clear to auscultation bilaterally Cardio: COMMON NORMALS: regular rate, regular rhythm, S1 normal heart sound present and S2 normal heart sound present RATE: regular rate RHYTHM: regular rhythm HEART SOUNDS: S1 normal heart sound present and S2 normal heart sound present GI: COMMON NORMALS: Normal to inspection, nondistended, normoactive bowel sounds present and non-tender Extremity: COMMON NORMALS: no pedal edema Neuro: COMMON NORMALS: patient oriented x3 Psych: COMMON NORMALS: mental status grossly normal Urinary Catheter Management: Dykes: Cath Placed During This Visit: yes Reason for Continuing Indwelling Catheter: Acute Urinary Retention or Obstruction Urinary Catheter Date of Insertion: 01/17/23 Urinary Catheter Time of Insertion: 00:02 Data 01/23/23 09:12 01/23/23 09:12 A&P Assessment and plan (1) CHF (congestive heart failure): (2) Type 2 diabetes mellitus: (3) Systolic CHF: (4) Cannabis use disorder: (5) Methamphetamine use disorder, severe: (6) COPD (chronic obstructive pulmonary disease): (7) COPD exacerbation: (8) Acute exacerbation of CHF (congestive heart failure): (9) Encounter for smoking cessation counseling: (10) Acute respiratory failure with hypoxia: (11) Decreased cardiac ejection fraction: (12) NSVT (nonsustained ventricular tachycardia): Plan Acute hypoxic respiratory failure -Likely combination of COPD and CHF exacerbation -COPD exacerbation expand to Decadron, continue Rocephin, azithromycin DuoNeb treatments monitor respiratory status -CHF, -5L, continue p.o. Lasix 40 mg daily with potassium replacement -Currently room air, has wheezing on examination, advance diet as tolerated -Continue BiPAP as needed during the day, schedule during the night -Continue monitoring in neuropsychiatric unit -Continue ambulation -Smoking cessation counseling -Drug cessation counseling -Continue Coreg -Diabetes, low-dose sliding scale, blood sugars remain elevated add Lantus 10 units at bedtime -Monitor potassium, check magnesium, check creatinine -Stool softener, MiraLAX, -Patient had episodes of nonsustained V. tach when he was on the general medical floors on telemetry, given his evidence of cardiomyopathy EF of 30 to 35%, had a coronary angiogram in the last month with no obstructive CAD, he does report me thamphetamine use, he is on Coreg, is optimally medically manage, I think he would benefit from LifeVest, LifeVest ordered -Full code Plan for today ordered LifeVest Attestations Medical Necessity Statement*: Patient requires hospitalization for respiratory failure, hyperglycemia, CHF, nonsustained V. tach Diagnoses CHF (congestive heart failure) I50.9 Type 2 diabetes mellitus E11.9 Systolic CHF I50.20 Cannabis use disorder F12.90 Methamphetamine use disorder, severe F15.20 COPD (chronic obstructive pulmonary disease) J44.9 COPD exacerbation J44.1 Acute exacerbation of CHF (congestive heart failure) I50.9 Encounter for smoking cessation counseling Z71.6 Acute respiratory failure with hypoxia J96.01 Decreased cardiac ejection fraction R93.1 NSVT (nonsustained ventricular tachycardia) I47.29
[2023-01-24 17:50] LABS: Glucose Point of Care 325 mg/dL (70-110)
--- NOTE | 2023-01-24 18:36 | P.NPUPN_ITS ---
Subjective NPU Subjective: Patient presented today reporting that he is feeling okay. We discussed working with the social work team towards the possibility of a discharge at the beginning of the week. Specifically looking at what options exist for inpatient rehab. We agreed that once we look at the options that the likelihood would be discharged while he awaits the bed being available. Mental Status Exam MSE Comments: This is an obese white male in hospital scrubs with limited grooming and adequate eye contact. No abnormal movements except for mild psychomotor agitation. Cooperative with exam in mild distress. Speech was slightly decreased rate and volume. Mood described as doing okay and hopeful, affect fidg ety. Thought process organized, thought content: patient denies suicidal or homicidal ideation, there were no delusions reported or noted, he denied any auditory or visual hallucinations. Attention and concentration were intact and memory appeared unreliable but none were formally tested. He is alert and oriented times three. Insight and judgment appeared limited and impulse control appeared impaired. Vitals/I&O/Wt Last Vital Signs Temp 98 F 01/24/23 14:00 Pulse 75 01/24/23 14:00 Resp 18 01/24/23 14:00 BP 130/77 01/24/23 14:00 Pulse Ox 93 01/24/23 14:00 O2 Del Method Room Air 01/24/23 14:00 O2 Flow Rate 2 01/23/23 08:00 FiO2 35 01/18/23 20:35 Weight last 48 hrs Weight 111.674 kg Physical Exam Urinary Catheter Management: Dykes: Cath Placed During This Visit: yes Reason for Continuing Indwelling Catheter: Acute Urinary Retention or Obstruction Urinary Catheter Date of Insertion: 01/17/23 Urinary Catheter Time of Insertion: 00:02 Data NPU 01/23/23 09:12 01/23/23 09:12 A&P Assessment and plan (1) CHF (congestive heart failure): (2) Type 2 diabetes mellitus: (3) Systolic CHF: (4) Cannabis use disorder: (5) Methamphetamine use disorder, severe: (6) COPD (chronic obstructive pulmonary disease): (7) COPD exacerbation: (8) Acute exacerbation of CHF (congestive heart failure): (9) Encounter for smoking cessation counseling: (10) Acute respiratory failure with hypoxia: (11) Decreased cardiac ejection fraction: (12) NSVT (nonsustained ventricular tachycardia): Plan This is a 57-year-old possibly male with long history of mental health and addiction issues who again presents with desire to taper Seroquel who appears manic in context of active use of methamphetamine for the past 2 months. ?1.? Will reduce seroquel further to 200mg at night ?2.? Continue every 15 minute checks for safety. ?3.? Encourage individual, group and milieu therapies. ?4.? Encourage sober living treatment after discharge at the highest level of c are to which he is willing to commit. We will work to get him set up for inpatient follow-up but we will have to likely get him some care home or other living arrangement while he awaits a bed. Involuntary Hold Information 96 Hour Hold: 96 Hour Involuntary Admission: No Attestations NPU Medical Necessity Statement*: Inpatient hospitalization is medically necessary and the clinically appropriate intervention at this time.? We will initiate medications and make changes as indicated. Likely length of stay 5-7 days. Coding Level of Care Code Acute Code for g Fwd Diagnoses CHF (congestive heart failure) I50.9 Type 2 diabetes mellitus E11.9 Systolic CHF I50.20 Cannabis use disorder F12.90 Methamphetamine use disorder, severe F15.20 COPD (chronic obstructive pulmonary disease) J44.9 COPD exacerbation J44.1 Acute exacerbation of CHF (congestive heart failure) I50.9 Encounter for smoking cessation counseling Z71.6 Acute respiratory failure with hypoxia J96.01 Decreased cardiac ejection fraction R93.1 NSVT (nonsustained ventricular tachycardia) I47.29
[2023-01-24 19:29] LABS: Glucose Point of Care 221 mg/dL (70-110)
[2023-01-24] MEDS: atorvastatin 40 mg Tablet PO (20:46)
[2023-01-24] MEDS: quetiapine 300 mg Tablet PO (20:46)
[2023-01-24] MEDS: insulin glargine 100 units/1 mL 10 UNIT SUBCUT (21:03)
[2023-01-24 21:04] VITALS: BP 109/57; PULSE 79; RESP 17; TEMP 36.6; O2SAT 93
[2023-01-25 06:00] VITALS: BP 134/82; PULSE 85; RESP 18; O2SAT 94
--- NOTE | 2023-01-25 06:43 | PC.NURSE ---
Patient complains of severe stomach cramps, states he has not had BM in 2 days, he also states that he is having problems urinating & noticed a drop or 2 blood . He states that he thinks it is his prostate & he also had a catheter when he was in [facility]. Bowel sounds were hypoactive. The bladder scanner was obtained and showed 2 ml. Report given to olayinka for followup.
[2023-01-25 07:52] LABS: Glucose Point of Care 245 mg/dL (70-110)
[2023-01-25] MEDS: insulin lispro 100 unit/1 mL SUBCUT ×3 (08:23→17:49)
[2023-01-25] MEDS: tamsulosin 0.4 mg Capsule PO (08:24)
[2023-01-25] MEDS: multivitamin therapeutic Tablet 1 TAB PO (08:24)
[2023-01-25] MEDS: doxycycline 100 mg Tablet PO ×2 (08:25→17:49)
[2023-01-25] MEDS: gabapentin 400 mg Capsule 800 MG PO ×3 (08:25→20:11)
[2023-01-25 08:26] VITALS: BP 137/73
[2023-01-25] MEDS: predniSONE 20 mg Tablet 40 MG PO (08:26)
[2023-01-25] MEDS: losartan 50 mg Tablet 25 MG PO (08:26)
[2023-01-25] MEDS: thiamine 100 mg Tablet PO (08:26)
[2023-01-25] MEDS: carvedilol 6.25 mg Tablet PO ×2 (09:00→20:11)
[2023-01-25] MEDS: aspirin 81 mg EC Tablet PO (09:00)
[2023-01-25] MEDS: FUROsemide 40 mg Tablet PO (09:05)
[2023-01-25] MEDS: potassium chloride ER 20 mEq Tablet PO (09:05)
--- NOTE | 2023-01-25 12:01 | W.PM.NPUPNS ---
Subjective NPU Subjective: Patient presented today reporting doing okay. He continues to be hopeful that a sober living bed will be available on Friday or Friday, but we continue to discuss having a plan for if that is not the situation. He reports that he is doing fine on the medication and denied any problems or side effects. His tweaking has diminished and there is no significant psychomotor agitation being noted. He denies any other pressing issues. Mental Status Exam MSE Comments: This is an obese white male in hospital scrubs with limited grooming and adequate eye contact. No abnormal movements except for resolving psychomotor agitation. Cooperative with exam in mild distress. Speech was slightly decreased rate and volume. Mood described as doing okay and hopeful, affect congruent. Thought process organized, thought content: patient denies suicidal or homicidal ideation, there were no delusions reported or noted, he denied any auditory or visual hallucinations. Attention and concentration were intact and memory appeared unreliable but none were formally tested. He is alert and oriented times three. Insight and judgment appeared limited and impulse control appeared impaired. Vitals/I&O/Wt Last Vital Signs Temp 97.9 F 01/24/23 21:04 Pulse 85 01/25/23 06:00 Resp 18 01/25/23 06:00 BP 137/73 01/25/23 08:26 Pulse Ox 94 01/25/23 06:00 O2 Del Method Room Air 01/25/23 06:00 O2 Flow Rate 2 01/24/23 20:00 FiO2 35 01/18/23 20:35 Weight last 48 hrs Weight 111.674 kg Physical Exam Urinary Catheter Management: Dykes: Cath Placed During This Visit: yes Reason for Continuing Indwelling Catheter: Acute Urinary Retention or Obstruction Urinary Catheter Date of Insertion: 01/17/23 Urinary Catheter Time of Insertion: 00:02 Data NPU 01/23/23 09:12 01/23/23 09:12 A&P Assessment and plan (1) CHF (congestive heart failure): (2) Type 2 diabetes mellitus: (3) Systolic CHF: (4) Cannabis use disorder: (5) Methamphetamine use disorder, severe: (6) COPD (chronic obstructive pulmonary disease): (7) COPD exacerbation: (8) Acute exacerbation of CHF (congestive heart failure): (9) Encounter for smoking cessation counseling: (10) Acute respiratory failure with hypoxia: (11) Decreased cardiac ejection fraction: (12) NSVT (nonsustained ventricular tachycardia): Plan This is a 57-year-old possibly male with long history of mental health and addiction issues who again presents with desire to taper Seroquel who appears manic in context of active use of methamphetamine for the past 2 months. ?1.? Will reduce seroquel further to 200mg at night ?2.? Continue every 15 minute checks for safety. ?3.? Encourage individual, group and milieu therapies. ?4.? Encourage sober living treatment after discharge at the highest level of care to which he is willing to commit. We will work to get him set up for inpatient follow-up but we will have to likely get him some prison or other living arrangement while he awaits a bed. Involuntary Hold Information 96 Hour Hold: 96 Hour Involuntary Admission: No Attestations NPU Medical Necessity Statement*: Inpatient hospitalization is medically necessary and the clinically appropriate intervention at this time.? We will initiate medications and make changes as indicated. Likely length of stay 4-6 days. Coding Level of Care Code Acute Code for [facility] Fwd Diagnoses CHF (congestive heart failure) I50.9 Type 2 diabetes mellitus E11.9 Systolic CHF I50.20 Cannabis use disorder F12.90 Methamphetamine use disorder, severe F15.20 COPD (chronic obstructive pulmonary disease) J44.9 COPD exacerbation J44.1 Acute exacerbation of CHF (congestive heart failure) I50.9 Encounter for smoking cessation counseling Z71.6 Acute respiratory failure with hypoxia J96.01 Decreased cardiac ejection fraction R93.1 NSVT (nonsustained ventricular tachycardia) I47.29
[2023-01-25] MEDS: docusate sodium 100 mg Capsule PO ×2 (12:03→20:12)
[2023-01-25] MEDS: polyethylene glycol 3350 Pkt 17 gm PO (12:04)
[2023-01-25 12:09] LABS: Glucose Point of Care 352 mg/dL (70-110)
--- NOTE | 2023-01-25 13:11 | P.PN_ITS ---
Subjective Subjective: Patient tells me that he has not had a bowel movement today, no nausea, no vomiting, no abdominal pain, but he is passing gas Vitals/I&O/Wt Last Vital Signs Temp 97.9 F 01/24/23 21:04 Pulse 85 01/25/23 06:00 Resp 18 01/25/23 06:00 BP 137/73 01/25/23 08:26 Pulse Ox 94 01/25/23 06:00 O2 Del Method Room Air 01/25/23 06:00 O2 Flow Rate 2 01/24/23 20:00 FiO2 35 01/18/23 20:35 Weight last 48 hrs Weight 111.674 kg Physical Exam Const: COMMON NORMALS: no acute distress and patient oriented x3 Resp: COMMON NORMALS: normal respiratory effort, No retractions, No use of accessory muscles and clear to auscultation bilaterally AUSCULTATION: clear to auscultation bilaterally Cardio: COMMON NORMALS: regular rate, regular rhythm, S1 normal heart sound present and S2 normal heart sound present RATE: regular rate RHYTHM: re gular rhythm HEART SOUNDS: S1 normal heart sound present and S2 normal heart sound present GI: COMMON NORMALS: Normal to inspection, nondistended, normoactive bowel sounds present and non-tender Extremity: COMMON NORMALS: no pedal edema Neuro: COMMON NORMALS: patient oriented x3 Psych: COMMON NORMALS: mental status grossly normal Urinary Catheter Management: Dykes: Cath Placed During This Visit: yes Reason for Continuing Indwelling Catheter: Acute Urinary Retention or Ob struction Urinary Catheter Date of Insertion: 01/17/23 Urinary Catheter Time of Insertion: 00:02 Data 01/23/23 09:12 01/23/23 09:12 A&P Assessment and plan (1) CHF (congestive heart failure): (2) Type 2 diabetes mellitus: (3) Systolic CHF: (4) Cannabis use disorder: (5) Methamphetamine use disorder, severe: (6) COPD (chronic obstructive pulmonary disease): (7) COPD exacerbation: (8) Acute exacerbation of CHF (congestive heart failure): (9) Encounter for smoking cessation counseling: (10) Acute respiratory failure with hypoxia: (11) Decreased cardiac ejection fraction: (12) NSVT (nonsustained ventricular tachycardia): Plan Acute hypoxic respiratory failure -Likely combination of COPD and CHF exacerbation -COPD exacerbation expand to Decadron, continue Rocephin, azithromycin DuoNeb treatments monitor respiratory status -CHF, -5L, continue p.o. Lasix 40 mg daily with potassium replacement -Currently room air, has wheezing on examination, advance diet as tolerated -Continue BiPAP as needed during the day, schedule during the night -Continue monitoring in neuropsychiatric unit -Continue ambulation -Smoking cessation counseling -Drug cessation counseling -Continue Coreg -Diabetes, low-dose sliding scale, blood sugars remain elevated add Lantus 10 un its at bedtime -Monitor potassium, check magnesium, check creatinine -Stool softener, MiraLAX, -Patient had episodes of nonsustained V. tach when he was on the general medical floors on telemetry, given his evidence of cardiomyopathy EF of 30 to 35%, had a coronary angiogram in the last month with no obstructive CAD, he does report methamphetamine use, he is on Coreg, is optimally medically manage, I think he would benefit from LifeVest, LifeVest ordered -Full code Plan for today 1 dose of lactulose to help him have a bowel movement, abdominal exams, stop prednisone Attestations Medical Necessity Statement*: Patient requires hospitalization for respiratory failure, COPD, CHF Coding Level of Care Code Acute Code for [facility] Fwd Diagnoses CHF (congestive heart failure) I50.9 Type 2 diabetes mellitus E11.9 Systolic CHF I50.20 Cannabis use disorder F12.90 Methamphetamine use disorder, severe F15.20 COPD (chronic obstructive pulmonary disease) J44.9 COPD exacerbation J44.1 Acute exacerbation of CHF (congestive heart failure) I50.9 Encounter for smoking cessation counseling Z71.6 Acute respiratory failure with hypoxia J96.01 Decreased cardiac ejection fraction R93.1 NSVT (nonsustained ventricular tachycardia) I47.29
[2023-01-25 14:00] VITALS: BP 133/76; PULSE 76; RESP 18; TEMP 36.6; O2SAT 94
[2023-01-25 17:37] LABS: Glucose Point of Care 301 mg/dL (70-110)
[2023-01-25 19:20] LABS: Glucose Point of Care 330 mg/dL (70-110)
[2023-01-25 20:11] VITALS: BP 151/83; PULSE 90; RESP 18; TEMP 36.8; O2SAT 94
[2023-01-25] MEDS: atorvastatin 40 mg Tablet PO (20:12)
[2023-01-25] MEDS: trazodone 50 mg Tablet PO (20:12)
[2023-01-25] MEDS: insulin glargine 100 units/1 mL 10 UNIT SUBCUT (20:12)
[2023-01-25] MEDS: quetiapine 300 mg Tablet PO (20:12)
[2023-01-26 06:00] VITALS: BP 153/82; PULSE 81; RESP 18; O2SAT 95
[2023-01-26 07:55] LABS: Glucose Point of Care 225 mg/dL (70-110)
[2023-01-26] MEDS: insulin lispro 100 unit/1 mL SUBCUT ×2 (08:15→17:44)
[2023-01-26] MEDS: doxycycline 100 mg Tablet PO ×2 (08:15→17:43)
[2023-01-26] MEDS: FUROsemide 40 mg Tablet PO (08:15)
[2023-01-26 08:16] VITALS: BP 138/88
[2023-01-26] MEDS: aspirin 81 mg EC Tablet PO (08:16)
[2023-01-26] MEDS: losartan 50 mg Tablet 25 MG PO (08:16)
[2023-01-26] MEDS: gabapentin 400 mg Capsule 800 MG PO ×3 (08:16→20:25)
[2023-01-26] MEDS: potassium chloride ER 20 mEq Tablet PO (08:16)
[2023-01-26] MEDS: thiamine 100 mg Tablet PO (08:17)
[2023-01-26] MEDS: carvedilol 6.25 mg Tablet PO ×2 (08:17→20:25)
[2023-01-26] MEDS: tamsulosin 0.4 mg Capsule PO (08:17)
[2023-01-26] MEDS: multivitamin therapeutic Tablet 1 TAB PO (08:17)
[2023-01-26] MEDS: insulin glargine 100 units/1 mL 5 UNIT SUBCUT (08:38)
[2023-01-26] MEDS: polyethylene glycol 3350 Pkt 17 gm PO (10:08)
[2023-01-26] MEDS: docusate sodium 100 mg Capsule PO ×2 (10:08→20:26)
[2023-01-26 11:47] LABS: Glucose Point of Care 109 mg/dL (70-110)
--- NOTE | 2023-01-26 13:13 | W.PM.NPUPNS ---
Subjective NPU Subjective: Patient presented today reporting that he is doing okay. We discussed the risk benefits and alternatives of continuing to decrease his Seroquel and increase the trazodone so that he still has something to help with sleep. He identifies that possibilities for rehab at [facility] are limited but he is open to rehab in different situations. Otherwise he reports that he is adjusting to the medications and continues to follow the recommendations of the hospitalist which are consulting on his case and working to get him the vest for his CHF. Mental Status Exam MSE Comments: This is an obese white male in hospital scrubs with limited grooming and adequate eye contact. No abnormal movements except for resolving psychomotor agitation. Cooperative with exam in no acute distress. Speech was slightly decreased rate and volume. Mood described as doing better, affect congruent. Thought process organized, thought content: patient denies suicidal or homicidal ideation, there were no delusions reported or noted, he denied any auditory or visual hallucinations. Attention and concentration were intact and memory appeared unreliable but none were formally tested. He is alert and oriented times three. Insight and judgment appeared limited and impulse control appeared impaired. Vitals/I&O/Wt Last Vital Signs Temp 98.2 F 01/25/23 20:11 Pulse 81 01/26/23 06:00 Resp 18 01/26/23 06:00 BP 138/88 01/26/23 08:16 Pulse Ox 95 01/26/23 06:00 O2 Del Method Room Air 01/26/23 06:00 O2 Flow Rate 2 01/24/23 20:00 FiO2 35 01/18/23 20:35 Weight last 48 hrs Weight 113.398 kg Physical Exam Urinary Catheter Management: Dykes: Cath Placed During This Visit: yes Reason for Continuing Indwelling Catheter: Acute Urinary Retention or Obstruction Urinary Catheter Date of Insertion: 01/17/23 Urinary Catheter Time of Insertion: 00:02 Data NPU 01/23/23 09:12 01/23/23 09:12 A&P Assessment and plan (1) CHF (congestive heart failure): (2) Type 2 diabetes mellitus: (3) Systolic CHF: (4) Cannabis use disorder: (5) Methamphetamine use disorder, severe: (6) COPD (chronic obstructive pulmonary disease): (7) COPD exacerbation: (8) Acute exacerbation of CHF (congestive heart failure): (9) Encounter for smoking cessation counseling: (10) Acute respiratory failure with hypoxia: (11) Decreased cardiac ejection fraction: (12) NSVT (nonsustained ventricular tachycardia): Plan This is a 57-year-old possibly male with long history of mental health and addiction issues who again presents with desire to taper Seroquel who appears manic in context of active use of methamphetamine for the past 2 months. ?1.? Will reduce seroquel further to 100 mg at night and increase trazodone to 100 mg p.o. nightly. ?2.? Continue every 15 minute checks for safety. ?3.? Encourage individual, group and milieu therapies. ?4.? Encourage sober living treatment after discharge at the highest level of care to which he is willing to commit. We will work to get him set up for inpatient follow-up but we will have to likely get him some penitentiary or other living arrangement while he awaits a bed. 5. Appreciate hospitalist consult and continued assistance with his multiple medical comorbidities. Involuntary Hold Information 96 Hour Hold: 96 Hour Involuntary Admission: No Attestations NPU Medical Necessity Statement*: Inpatient hospitalization is medically necessary and the clinically appropriate intervention at this time.? We will initiate medications and make changes as indicated. Likely length of stay 2-5 days. Coding Level of Care Code Acute Code for g Fwd Diagnoses CHF (congestive heart failure) I50.9 Type 2 diabetes mellitus E11.9 Systolic CHF I50.20 Cannabis use disorder F12.90 Methamphetamine use disorder, severe F15.20 COPD (chronic obstructive pulmonary disease) J44.9 COPD exacerbation J44.1 Acute exacerbation of CHF (congestive heart failure) I50.9 Encounter for smoking cessation counseling Z71.6 Acute respiratory failure with hypoxia J96.01 Decreased cardiac ejection fraction R93.1 NSVT (nonsustained ventricular tachycardia) I47.29
[2023-01-26 14:00] VITALS: BP 111/71; PULSE 65; RESP 18; TEMP 36.6; O2SAT 94
[2023-01-26 17:02] LABS: Glucose Point of Care 175 mg/dL (70-110)
[2023-01-26 19:54] LABS: Glucose Point of Care 190 mg/dL (70-110)
[2023-01-26] MEDS: atorvastatin 40 mg Tablet PO (20:25)
[2023-01-26] MEDS: quetiapine 300 mg Tablet PO (20:25)
[2023-01-26] MEDS: trazodone 50 mg Tablet PO (20:26)
[2023-01-26] MEDS: insulin glargine 100 units/1 mL 10 UNIT SUBCUT (20:26)
[2023-01-26 20:30] VITALS: BP 130/77; PULSE 80; RESP 18; TEMP 36.8; O2SAT 95
[2023-01-26] MEDS: ipratropium-albuterol 3 mL Neb INHALATION (22:00)
[2023-01-26 22:01] VITALS: PULSE 80; RESP 16; O2SAT 96
[2023-01-27] MEDS: hyDROXYzine 25 mg Capsule 50 MG PO ×2 (02:07→09:41)
[2023-01-27 06:00] VITALS: BP 126/83; PULSE 73; RESP 16; O2SAT 96
[2023-01-27 07:55] LABS: Glucose Point of Care 140 mg/dL (70-110)
[2023-01-27] MEDS: ipratropium-albuterol 3 mL Neb INHALATION (07:58)
[2023-01-27 08:00] VITALS: PULSE 75; RESP 18; O2SAT 96
[2023-01-27] MEDS: docusate sodium 100 mg Capsule PO ×2 (08:26→19:37)
[2023-01-27] MEDS: multivitamin therapeutic Tablet 1 TAB PO (08:26)
[2023-01-27] MEDS: tamsulosin 0.4 mg Capsule PO (08:26)
[2023-01-27] MEDS: insulin glargine 100 units/1 mL 5 UNIT SUBCUT (08:26)
[2023-01-27] MEDS: FUROsemide 40 mg Tablet PO (08:26)
[2023-01-27] MEDS: doxycycline 100 mg Tablet PO ×2 (08:26→17:05)
[2023-01-27] MEDS: carvedilol 6.25 mg Tablet PO ×2 (08:26→19:36)
[2023-01-27] MEDS: thiamine 100 mg Tablet PO (08:26)
[2023-01-27] MEDS: potassium chloride ER 20 mEq Tablet PO (08:26)
[2023-01-27] MEDS: aspirin 81 mg EC Tablet PO (08:27)
[2023-01-27] MEDS: gabapentin 400 mg Capsule 800 MG PO ×3 (08:27→19:36)
[2023-01-27] MEDS: losartan 50 mg Tablet 25 MG PO (08:27)
--- NOTE | 2023-01-27 08:30 | PC.NURSE ---
refused scheduled Miralax, stated he doesn't need it
--- NOTE | 2023-01-27 11:14 | P.NPUPN_ITS ---
Subjective NPU Subjective: Patient presented today reporting that he is improving daily. He reports that he has a hearing on so he is hoping to be out of here by the end to manage that. He is happy to know that he is going to have his best and that arrangement has been solidified for his CHF. He continues to be resistant to long-term reasonable treatment of his diabetes but follows the protocols here. We discussed the likelihood of discharge in the next 48 hours. He is working with the social work team on options for discharge for sober living treatment with a respect for his limited resources. Mental Status Exam MSE Comments: This is an obese white male in hospital scrubs with limited grooming and a dequate eye contact. No abnormal movements except for resolving psychomotor agitation. Cooperative with exam in no acute distress. Speech was slightly decreased rate and volume. Mood described as doing better, affect congruent. Thought process organized, thought content: patient denies suicidal or homicidal ideation, there were no delusions reported or noted, he denied any auditory or visual hallucinations. Attention and concentration were intact and memory appeared unreliable but none were formally tested. He is alert and oriented times three. Insight and judgment appeared limited and impulse control appeared impaired. Vitals/I&O/Wt Last Vital Signs Temp 98.2 F 01/26/23 20:30 Pulse 75 01/27/23 08:00 Resp 18 01/27/23 08:00 BP 126/83 01/27/23 06:00 Pulse Ox 96 01/27/23 08:00 O2 Del Method Room Air 01/27/23 08:00 O2 Flow Rate 2 01/24/23 20:00 FiO2 35 01/18/23 20:35 Weight last 48 hrs Weight 113.398 kg Physical Exam Urinary Catheter Management: Dykes: Cath Placed During This Visit: yes Reason for Continuing Indwelling Catheter: Acute Urinary Retention or Obstructio n Urinary Catheter Date of Insertion: 01/17/23 Urinary Catheter Time of Insertion: 00:02 Data NPU 01/23/23 09:12 01/23/23 09:12 A&P Assessment and plan (1) CHF (congestive heart failure): (2) Type 2 diabetes mellitus: (3) Systolic CHF: (4) Cannabis use disorder: (5) Methamphetamine use disorder, severe: (6) COPD (chronic obstructive pulmonary disease): (7) COPD exacerbation: (8) Acute exacerbation of CHF (congestive heart failure): (9) Encounter for smoking cessation counseling: (10) Acute respiratory failure with hypoxia: (11) Decreased cardiac ejection fraction: (12) NSVT (nonsustained ventricular tachycardia): Plan This is a 57-year-old possibly male with long history of mental health and addiction issues who again presents with desire to taper Seroquel who appears manic in context of active use of methamphetamine for the past 2 months. ?1.? Will reduce seroquel further to 100 mg at night and increase trazodone to 100 mg p.o. nightly. ?2.? Continue every 15 minute checks for safety. ?3.? Encourage individual, group and milieu therapies. ?4.? Encourage sober living treatment after discharge at the highest level of care to which he is willing to commit. We will work to get him set up for inpatient follow-up but we will have to likely get him some [facility] or other living arrangement while he awaits a bed. 5. Appreciate hospitalist consult and continued assistance with his multiple medical comorbidities. Involuntary Hold Information 96 Hour Hold: 96 Hour Involuntary Admission: No Attestations NPU Medical Necessity Statement*: Inpatient hospitalization is medically necessary and the clinically appropriate intervention at this time.? We will initiate medications and make changes as indicated. Likely length of stay 1-3 days. Coding Level of Care Code Acute Code for g Fwd Diagnoses CHF (congestive heart failure) I50.9 Type 2 diabetes mellitus E11.9 Systolic CHF I50.20 Cannabis use disorder F12.90 Methamphetamine use disorder, severe F15.20 COPD (chronic obstructive pulmonary disease) J44.9 COPD exacerbation J44.1 Acute exacerbation of CHF (congestive heart failure) I50.9 Encounter for smoking cessation counseling Z71.6 Acute respiratory failure with hypoxia J96.01 Decreased cardiac ejection fraction R93.1 NSVT (nonsustained ventricular tachycardia) I47.29
[2023-01-27 12:06] LABS: Glucose Point of Care 372 mg/dL (70-110)
[2023-01-27] MEDS: insulin lispro 100 unit/1 mL SUBCUT ×2 (12:29→17:25)
[2023-01-27] MEDS: acetaminophen 325 mg Tablet 650 MG PO (12:29)
[2023-01-27 14:00] VITALS: BP 122/81; PULSE 89; RESP 18; TEMP 36.6; O2SAT 94
[2023-01-27 17:24] LABS: Glucose Point of Care 147 mg/dL (70-110)
[2023-01-27] MEDS: insulin glargine 100 units/1 mL 10 UNIT SUBCUT (19:36)
[2023-01-27] MEDS: atorvastatin 40 mg Tablet PO (19:37)
[2023-01-27] MEDS: quetiapine 100 mg Tablet PO (19:37)
[2023-01-27] MEDS: trazodone 100 mg Tablet PO ×2 (19:42→20:48)
[2023-01-27 20:30] VITALS: BP 123/70; PULSE 90; RESP 18; TEMP 36.8; O2SAT 92
[2023-01-27 21:55] LABS: Glucose Point of Care 151 mg/dL (70-110)
[2023-01-28] MEDS: hyDROXYzine 25 mg Capsule 50 MG PO (00:11)
--- NOTE | 2023-01-28 00:16 | PC.NURSE ---
Pt up at nurses station c/o inability to sleep and I told the doctor to only decrease my seroquel by 50mg not 200 I can't sleep, all I'm doing is staring at the wall in my room . On 0000 rounds pt was asleep and snoring. PRN Vistaril administered per orders. Pt is now eating a snack, however continuing to state that he hasn't slept all night.
[2023-01-28] MEDS: saline nasal spray 44mL Btl 1 SPRAY NASAL ×3 (02:00→10:51)
[2023-01-28 06:00] VITALS: BP 130/82; PULSE 82; RESP 18; TEMP 36.6; O2SAT 91
[2023-01-28] MEDS: tamsulosin 0.4 mg Capsule PO (08:05)
[2023-01-28] MEDS: thiamine 100 mg Tablet PO (08:05)
[2023-01-28] MEDS: doxycycline 100 mg Tablet PO (08:05)
[2023-01-28] MEDS: carvedilol 6.25 mg Tablet PO (08:05)
[2023-01-28] MEDS: gabapentin 400 mg Capsule 800 MG PO ×2 (08:05→14:17)
[2023-01-28] MEDS: aspirin 81 mg EC Tablet PO (08:05)
[2023-01-28] MEDS: potassium chloride ER 20 mEq Tablet PO (08:06)
[2023-01-28] MEDS: losartan 50 mg Tablet 25 MG PO (08:06)
[2023-01-28] MEDS: FUROsemide 40 mg Tablet PO (08:06)
[2023-01-28] MEDS: multivitamin therapeutic Tablet 1 TAB PO (08:06)
[2023-01-28 08:25] LABS: Glucose Point of Care 143 mg/dL (70-110)
[2023-01-28] MEDS: insulin lispro 100 unit/1 mL SUBCUT (08:35)
[2023-01-28] MEDS: insulin glargine 100 units/1 mL 5 UNIT SUBCUT (08:36)
--- NOTE | 2023-01-28 08:50 | PC.NURSE ---
PT CURRENTLY DENIES SI/HI/AH/VH. PT IS CURRENTLY UPSET ABOUT HIS MEDICATION CHANGES THAT WERE MADE YESTERDAY. THIS NURSE ATTEMPTED EDUCATION ABOUT HOW MEDICATION CHANGES WORK. PT WAS RESISTANT TO LEARNING. PT WAS ABLE TO BE REDIRECTED WITH BREAKFAST. WILL CONTINUE TO MONITOR PT.
[2023-01-28] MEDS: docusate sodium 100 mg Capsule PO (09:56)
[2023-01-28] MEDS: polyethylene glycol 3350 Pkt 17 gm PO (09:57)
[2023-01-28 12:20] LABS: Glucose Point of Care 116 mg/dL (70-110)
[2023-01-28 14:00] VITALS: BP 122/77; PULSE 80; RESP 18; TEMP 36.8; O2SAT 95
[2023-01-28 14:19] VITALS: BP 130/82; PULSE 82; RESP 18; TEMP 36.6; O2SAT 91
--- NOTE | 2023-01-28 14:56 | P.PN_ITS ---
Subjective Subjective: - Patient was seen this morning -He is concerned that his Seroquel dose has been decreased Vitals/I&O/Wt Last Vital Signs Temp 97.8 F 01/28/23 14:19 Pulse 82 01/28/23 14:19 Resp 18 01/28/23 14:19 BP 130/82 01/28/23 14:19 Pulse Ox 91 01/28/23 14:19 O2 Del Method Room Air 01/28/23 14:00 O2 Flow Rate 2 01/24/23 20:00 FiO2 35 01/18/23 20:35 Physical Exam Const: COMMON NORMALS: no acute distress and patient oriented x3 Resp: COMMON NORMALS: normal respiratory effort, No retractions, No use of accessory muscles and clear to auscultation bilaterally AUSCULTATION: clear to auscultation bilaterally Cardio: COMMON NORMALS: regular rate, regular rhythm, S1 normal heart sound present and S2 normal heart sound present RATE: regular rate RHYTHM: regular rhythm HEART SOUNDS: S1 normal heart sound present and S2 normal heart sound present GI: COMMON NORMALS: Normal to inspection, nondistended, normoactive bowel nilo nds present and non-tender Extremity: COMMON NORMALS: no pedal edema Neuro: COMMON NORMALS: patient oriented x3 Psych: COMMON NORMALS: mental status grossly normal Urinary Catheter Management: Dykes: Cath Placed During This Visit: yes Reason for Continuing Indwelling Catheter: Acute Urinary Retention or Obstruction Urinary Catheter Date of Insertion: 01/17/23 Urinary Catheter Time of Insertion: 00:02 Data 01/23/23 09:12 01/23/23 09:12 A&P Assessment and plan (1) CHF (congestive heart failure): (2) Type 2 diabetes mellitus: (3) Systolic CHF: (4) Cannabis use disorder: (5) Methamphetamine use disorder, severe: (6) COPD (chronic obstructive pulmonary disease): (7) COPD exacerbation: (8) Acute exacerbation of CHF (congestive heart failure): (9) Encounter for smoking cessation counseling: (10) Acute respiratory failure with hypoxia: (11) Decreased cardiac ejection fraction: (12) NSVT (nonsustained ventricular tachycardia): Plan Acute hypoxic respiratory failure -Likely combination of COPD and CHF exacerbation -COPD exacerbation resolved -CHF, -, discharged on Lasix 40 mg daily with potassium replacement -Currently room air, no wheezing, shortness of breath -Smoking cessation counseling -Drug cessation counseling -Continue Coreg on discharge -Diabetes, low-dose sliding scale, with Lantus 5 units twice daily on discharge -Patient had episodes of nonsustained V. tach when he was on the general medical floors on telemetry, given his evidence of cardiomyopathy EF of 30 to 35%, had a coronary angiogram in the last month with no obstructive CAD, he does report methamphetamine use, he is on Coreg, is optimally medically manage, I have ordered him a LifeVest, which has been fitted for him, advised of compliance, I have ordered a LifeVest has been fitted, advised of compliance, discussed morbidity mortality associated if he takes it off, follow-up with cardiology - Attestations Medical Necessity Statement*: Patient will be discharged today Diagnoses CHF (congestive heart failure) I50.9 Type 2 diabetes mellitus E11.9 Systolic CHF I50.20 Cannabis use disorder F12.90 Methamphetamine use disorder, severe F15.20 COPD (chronic obstructive pulmonary disease) J44.9 COPD exacerbation J44.1 Acute exacerbation of CHF (congestive heart failure) I50.9 Encounter for smoking cessation counseling Z71.6 Acute respiratory failure with hypoxia J96.01 Decreased cardiac ejection fraction R93.1 NSVT (nonsustained ventricular tachycardia) I47.29
--- NOTE | 2023-01-28 15:02 | P.NPUDS_ITS ---
Diagnoses at Discharge Discharge Diagnosis (1) CHF (congestive heart failure): Status: Acute (2) Type 2 diabetes mellitus: Status: Acute (3) Systolic CHF: Status: Acute (4) Cannabis use disorder: Status: Acute (5) Methamphetamine use disorder, severe: Status: Acute (6) COPD (chronic obstructive pulmonary disease): Status: Acute (7) COPD exacerbation: Status: Inactive (8) Acute exacerbation of CHF (congestive heart failure): Status: Resolved (9) Encounter for smoking cessation counseling: Status: Acute (10) Acute respiratory failure with hypoxia: Status: Acute (11) Decreased cardiac ejection fraction: Status: Resolved (12) NSVT (nonsustained ventricular tachycardia): Status: Acute Reason for Visit Reason for Visit: SOB Brief History: David Cortes is a 57 year old male who had reported stating that he had been using methamphetamine mixed with a kick of fentanyl over the past 3 months. He had endorsed suicidal ideation and was admitted to the neuropsychiatric unit for further evaluation and treatment. Patient had reported that since his last discharge in August 2022, he had attended the drug and alcohol rehab have for 3 weeks at the inpatient rehabiliation at [facility] x 21 days and had maintained sobriety for 2 weeks. He then resumed the use of methamphetamine mixed with a reported tinge of fentanyl for several months. He had reported that he is homeless once again. The patient had reported racing thoughts and reports that he did not wish to take his Seroquel although he endorses that the Seroquel had helped him sleep. He reports having increased medical problems since his last visit as he is appear to have had a coronary artery bypass and has had exacerbations of COPD and numerous medical hospitalizations over the past 4 months. He reported continued use of methamphetamine despite adverse consequences. He had reported that his mind was racing and that his mood has been up and down. He had endorsed a past history of manic symptoms including decreased need for sleep irritability and racing thoughts but reported that methamphetamine had typically kindled his current symptoms. He currently denies any psychotic symptoms. Inpatient psychiatric history: Multiple inpatient hospitalizations reportedly over 10. His last hospitalization was in August 2022 at the neuropsychiatric unit at [facility]. Outpatient psychiatric history: He is currently receiving services through [facility]. 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 Medications: Seroquel 800mg at night, gabapentin 800tid, albuterol inhaler., tamulosin,carvedilol, atorvastatin, aspirin, furosemide, losartan Drug and Alcohol Hx: He reports ongoing use of alcohol and methamphetamine for several years and describes a history of psychosis associated with methamphetamine use. He reports that he uses methamphetamine for helping with his problems with low energy. He minimizes any history of alcohol withdrawal symptoms, THC use regularly. Recent rehab stint at [facility], hx of fentanyl abuse as well. Social Hx: see below Stated Below is a discharge summary from 08/24/22-09/04/22 at the [facility]: Diagnoses at Discharge Discharge Diagnosis (1) Schizophrenia, chronic condition: Status: Acute (2) Methamphetamine use disorder, severe: Status: Acute (3) Psychotic disorder due to psychoactive substance: Status: Resolved (4) Methamphetamine abuse: Status: Deleted (5) Suicidal ideation: Status: Inactive (6) On combination antipsychotic drug therapy: Status: Resolved Reason for Visit History of Present Illness David Cortes is a 57 year old male with a history of schizophrenia, methamphetamine dependence and alcohol abuse who had presented to the emergency department with suicidal ideation. He was admitted to the neuropsychiatric unit for evaluation and treatment. He reports that over the past few weeks he has been more frustrated after reporting that a lady friend of his had taken his van without authorization and had reported that the van was impounded. The patient reports that he had become agitated after reporting that he needed to pay a certain amount of money to get it removed from the impound. He reports that at that time he had felt that he may want to kill himself. He reports that he wants help at reducing his Seroquel and tapering it so that a [facility] based facility would accept him into the program. Despite this, he reports that the voices have been worse with the reduction in Seroquel. He reports that it is essential for him to take the Seroquel in order for him to be able to sleep. He has reported that the voices continue to say negative things about him. He reports having depressed mood and some feelings of hopelessness again today. He reports that he had last used alcohol a few weeks ago and reports having used methamphetamine about 2 weeks ago. His toxicology screen was negative for any illicit drugs or alcohol on admission. He reports that his depression has been more manageable and he reports that he needs to get help in a facility where he would stay for a year to help him better manage his chronic problems including depression and hallucinations. Inpatient psychiatric hx: reports 10 previous hospitalizations most recently here in January of 2022. Outpatient treatment: at [facility] for last 3 years, most recently seen by Nell Stephens in July 2022. He has also been seen through the crisis center several times in the last month. Substance abuse history: He reports ongoing use of alcohol and methamphetamine for several years and describes a history of psychosis associated with methamphetamine use. He reports that he uses methamphetamine for helping with his problems with low energy. 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 Legal Hx: reports incarcerated for 10 years of his life, longest bid was 4 years ago, where he served time for robbery. Reports having charges in [place] for not paying judicial system Social Hx: Tarun was born in [place] and raised by his biological parents along with his 2 other sibling. He reports that he dropped out of school in 11th grade and earned a GED. He reports having some behavioral problems as a child. He is living currently out of his car as his trailer has been impounded. 2-3 ppd smoker, Hospital Course Hospital Course During the hospitalization, patient had routine laboratory studies which were within normal limits except for few outliers. Additionally there was a general medical evaluation which was also within normal limits and revealed no new acute processes. At the time of discharge, lethality was denied and psychosis was resolving. Mood and anxiety were well managed. Patient endorsed a plan to avoid all drugs of abuse and follow-up with the aftercare recommendations of the treatment team. Patient was evaluated and deemed to be absent credible lethality, and had achieved the maximum benefit from an inpatient hospitalization, so was discharged. He was started on Seroquel and increased to 800 mg at night. The patient had reported an intolerance to other trials during this hospital stay including Wellbutrin extended release as he had reported excessive sweating on this medication. He had expressed desire to be placed in inpatient unit and an inpatient stay for substance abuse treatment was found scheduled for 13 September. The patient was to be discharged to stay with a friend until such date. Hospital Course Hospital Course He slowly acclimated to the individual, group and milieu therapies provided.? He presented again with significant depression, addiction and medical comorbidities. He had hospitalist following during his stay He was having significant plan to go to rehab after this hospitalization. He worked with social work team and got placement at a sober living program. We decreased his seroquel and increased trazodone continuing his other medication. He worked with the social work team for appropriate aftercare. He demonstrated significant improvement and was able to contract for safety outside the hospital prior to discharge.? During the hospitalization, patient had routine laboratory studies which were within normal limits except for few outliers.? Additionally there was a general medical evaluation which was also within normal limits and revealed no new acute processes other than those managed by hospitalists. He has a vest now for CHF which was fitted right before he left. Discharge Summary: At the time of discharge, he denied psychosis or lethality .? Mood and anxiety were well managed.? Patient endorsed a plan to avoid all drugs of abuse and follow-up with the aftercare recommendations of the treatment team.? Patient was evaluated and deemed to be absent credible lethality, and had achieved the maximum benefit from an inpatient hospitalization, so was discharged. Involuntary Hold Information 96 Hour Hold: 96 Hour Involuntary Admission: No Mental Status Exam MSE Comments: This is an obese white male in hospital scrubs with limited grooming and adequate eye contact. No abnormal movements except for resolving psychomotor agitation. Cooperative with exam in no acute distress. Speech was slightly decreased rate and volume. Mood described as doing better, affect congruent. T hought process organized, thought content: patient denies suicidal or homicidal ideation, there were no delusions reported or noted, he denied any auditory or visual hallucinations. Attention and concentration were intact and memory appeared unreliable but none were formally tested. He is alert and oriented times three. Insight and judgment appeared limited and impulse control appeared limited. Physical Exam Urinary Catheter Management: Dykes: Cath Placed During This Visit: yes Reason for Continuing Indwelling Catheter: Acute Urinary Retention or Obstruction Urinary Catheter Date of Insertion: 01/17/23 Urinary Catheter Time of Insertion: 00:02 Discharge Data Studies Completed and Pending: Completed Studies During Hospitalization Category Date Time Status CT abdomen pelvis wo con [id number] Stat Cat Scan 01/16/23 22:05 Completed XR chest 1V tien ble [id number] Stat Exams 01/16/23 03:32 Completed Radiology Impressions Chest X-Ray 01/16/23 03:32 IMPRESSION: 1. Strandy opacities in the left lower hemithorax likely represents atelectasis although left basilar infiltrate and pneumonia cannot be entirely excluded. 2. Mildly prominent cardiac silhouette. Abdomen/Pelvis CT 01/16/23 22:05 IMPRESSION: 1. Diffuse, mild wall thickening of the bladder. In the correct clinical setting, this may suggest cystitis. Recommend correlation with laboratory findings. Alternatively, this may be secondary to chronic outlet obstruction. 2. Scattered diverticula in the sigmoid colon. No evidence for diverticulitis. 3. Increased fecal content in the colon. 4. Incidental/nonacute findings are listed in the report. Laboratory Results WBC 14.4 10^3/uL (4.0 -10.0) H 01/23/23 09:12 RBC 5.44 10^6/uL (4.1 -5.3) H 01/23/23 09:12 Hgb 15.4 g/dL (11.7-1 6.6) 01/23/23 09:12 Hct 48.8 % (42.0-52.0 ) 01/23/23 09:12 MCV 89.7 fl (80-94) 01/23/23 09:12 MCH 28.3 pg (28.0-34. 0) 01/23/23 09:12 MCHC 31.6 g/dL (30.0-3 6.0) 01/23/23 09:12 RDW 14.7 % (12.1-15.1 ) 01/23/23 09:12 Plt Count 370 10^3/cmm (130 -400) 01/23/23 09:12 MPV 9.0 fL (7.4-10.4) 01/23/23 09:12 Neut % (Auto) 63.4 % 01/23/23 09:12 Lymph % (Auto) 26.3 % 01/23/23 09:12 [place] % (Auto) 7.4 % 01/23/23 09:12 Eos % (Auto) 0.5 % 01/23/23 09:12 Baso % (Auto) 0.5 % 01/23/23 09:12 Neut # (Auto) 9.12 10^3/uL (1.8 -7.7) H 01/23/23 09:12 Lymph # (Auto) 3.8 10^3/uL (0.8- 4.8) 01/23/23 09:12 [place] # (Auto) 1.1 10^3/uL (0.2- 0.9) H 01/23/23 09:12 Eos # (Auto) 0.1 10^3/uL (0.0- 0.8) 01/23/23 09:12 Baso # (Auto) 0.1 10^3/uL (0.0- 0.1) 01/23/23 09:12 Nucleated RBC % (a uto) 0 % 01/23/23 09:12 Nucleated RBCs # 0.0 /100WBC 01/23/23 09:12 Specimen Type Arterial 01/16/23 21:50 Sample Site Radial, right 01/16/23 21:50 ABG pH 7.37 (7.35-7.45) 01/16/23 21:50 ABG pCO2 50.1 mmHg (35-45) H 01/16/23 21:50 ABG pO2 68.8 mmHg (80.0-1 00.0) L 01/16/23 21:50 ABG HCO3 28.7 mmol/L (22-2 6) H 01/16/23 21:50 ABG O2 Saturation 93.7 01/16/23 21:50 ABG Base Excess 2.4 mmol/L (-2.0- 2.0) H 01/16/23 21:50 Tashi Test Pos 01/16/23 21:50 A-a O2 Gradient 2.5 mmHg (5-10) L 01/16/23 21:50 Hematocrit 42.4 % (42-52) 01/16/23 21:50 Hgb O2 Saturation 91.7 % (95-100) L 01/16/23 21:50 Carboxyhemoglobin 1.5 %THgb (0.4-20 .1) 01/16/23 21:50 Methemoglobin 0.7 % (0.4-1.5) 01/16/23 21:50 Total Hemoglobin 13.8 g/dL (14-18) L 01/16/23 21:50 Sodium 140.0 mmol/L (131 -143) 01/16/23 21:50 Potassium 4.3 mmol/L (3.5-5 .0) 01/16/23 21:50 Glucose 184.0 mg/dL (70-1 15) H 01/16/23 21:50 Ionized Calcium 1.2 mmol/L (1.1-1 .4) 01/16/23 21:50 O2 Delivery Device Room air 01/16/23 21:50 FiO2 21.0 % 01/16/23 21:50 Glaze Maker ID Walci 01/16/23 21:50 Sodium 135 mmol/L (136-1 45) L 01/23/23 09:12 Potassium 4.5 mmol/L (3.5-5 .1) 01/23/23 09:12 Chloride 97 mmol/L (98-107 ) L 01/23/23 09:12 Carbon Dioxide 26 mmol/L (22-29) 01/23/23 09:12 Anion Gap 16.5 (5-19) 01/23/23 09:12 BUN 23 mg/dL (6-20) H 01/23/23 09:12 Creatinine 0.9 mg/dL (0.7-1. 2) 01/23/23 09:12 GFR Calculation 87.0 mL/min (90-1 30) L 01/23/23 09:12 Glucose 237 mg/dL (65-115 ) H 01/23/23 09:12 POC Glucose 116 mg/dL (70-110 ) H 01/28/23 12:16 Calculated Osmolal ity 291 mOsm/kg (285- 295) 01/23/23 09:12 Lactate 1.5 mmol/L (0.5-2 .2) 01/17/23 04:09 Calcium 8.8 mg/dL (8.5-10 .5) 01/23/23 09:12 Phosphorus 3.6 mg/dL (2.5-4. 5) 01/22/23 05:09 Magnesium 2.2 mg/dL (1.7-2. 3) 01/22/23 05:09 Total Bilirubin 0.2 mg/dL (0.15-1 .2) 01/16/23 03:52 AST 30 U/L (0-40) 01/16/23 03:52 ALT 56 U/L (0-41) H 01/16/23 03:52 Alkaline Phosphata se 103 U/L (40-130) 01/16/23 03:52 Troponin T Baselin e 23 ng/L (0-15) H 01/16/23 16:55 Troponin T 120 Min zach 26.29 ng/L (0-15) H 01/16/23 19:11 Delta Troponin T 3.29 ABS# (0-10) 01/16/23 19:11 Troponin T Hi Sens 6Hr 26.19 ng/L (0-15) H 01/16/23 22:55 Troponin T Hi Sens 6Hr Delta 3.19 ng/L (0-12) 01/16/23 22:55 C-Reactive Protein 11.1 mg/L (0.0-4. 9) H 01/16/23 16:55 NT-Pro-B Natriuret Pep 525 pg/mL (0-125) H 01/23/23 09:12 Total Protein 6.8 g/dL (6.6-8.7 ) 01/16/23 03:52 Albumin 4.2 g/dL (3.5-5.2 ) 01/16/23 03:52 Globulin 2.6 g/dL (1.3-4.6 ) 01/16/23 03:52 Procalcitonin 0.04 ng/mL (0-0.5 ) 01/16/23 16:55 TSH 1.40 uIU/mL (0.27 -4.20) 01/16/23 03:52 Urine Color Yellow (Yellow) 01/17/23 00:15 Urine Appearance Clear (CLEAR) 01/17/23 00:15 Urine pH 5 (5-7) 01/17/23 00:15 Ur Specific Gravit y 1.015 (1.005-1.0 30) 01/17/23 00:15 Urine Protein Neg (Negative) 01/17/23 00:15 Urine Glucose (UA) Norm (Normal) 01/17/23 00:15 Urine Ketones Negative (Negati ve) 01/17/23 00:15 Urine Blood Neg (Negative) 01/17/23 00:15 Urine Nitrate Negative (Negati ve) 01/17/23 00:15 Urine Bilirubin Neg (Negative) 01/17/23 00:15 Urine Urobilinogen Neg mg/dL (Negati ve) 01/17/23 00:15 Ur Leukocyte Joaquina ase Negative (Negati ve) 01/17/23 00:15 Salicylates < 0.3 mg/dL (3-10 ) L 01/16/23 03:52 Urine Opiates Scre en Negative ng/mL (N egative) 01/16/23 04:50 Acetaminophen < 5.0 ug/mL (10-3 0) L 01/16/23 03:52 Ur Barbiturates Sc reen Negative ng/mL (N egative) 01/16/23 04:50 Ur Phencyclidine S crn Negative ng/mL (N egative) 01/16/23 04:50 Ur Amphetamines Sc reen Positive ng/mL (N egative) H 01/16/23 04:50 U Benzodiazepines Scrn Negative ng/mL (N egative) 01/16/23 04:50 Urine Cocaine Scre en Negative ng/mL (N egative) 01/16/23 04:50 U Marijuana (THC) Screen Positive ng/mL (N egative) H 01/16/23 04:50 Ethyl Alcohol < 10 mg/dL (0-10) 01/16/23 03:52 Vitals: Last Vital Signs Temp 97.8 F 01/28/23 14:19 Pulse 82 01/28/23 14:19 Resp 18 01/28/23 14:19 BP 130/82 01/28/23 14:19 Pulse Ox 91 01/28/23 14:19 O2 Del Method Room Air 01/28/23 14:00 O2 Flow Rate 2 01/24/23 20:00 FiO2 35 01/18/23 20:35 Discharge Plan Discharge Patient Disposition: Home Condition: Stable Prescriptions: New tamsulosin 0.4 mg Capsule 0.4 mg PO DAILY 30 Days Qty: 30 0RF Vitamin B-1 (mononitrate) 100 mg Tablet 100 mg PO DAILY 30 Days Qty: 30 0RF Lantus Solostar U-100 Insulin 100 unit/mL (3 mL) insulin pen See Rx Instructions .ROUTE .COMPLEX Qty: 15 0RF Rx Instructions: inject 5 units in AM and 5 units at bedtime, subcut Novolog FlexPen U-100 Insulin 100 unit/mL (3 mL) insulin pen See Rx Instructions .ROUTE .COMPLEX Qty: 15 0RF Rx Instructions: inject three times daily, subcut, after meals, based on sliding scale provided Seroquel 300 mg tablet 300 mg PO BEDTIME 30 Days Qty: 30 1RF trazodone 100 mg tablet 200 mg PO BEDTIME PRN (Reason: insomnia) 30 Days Qty: 60 1RF Continued multivitamin Tablet 1 tab PO DAILY Triple Antibiotic 3.5mg-400 unit- 5,000 unit/gram ointment 1 applic topical BID PRN (Reason: unknown) fluticasone propion-salmeterol [Advair Diskus] 100-50 mcg/dose blister with device 1 inh inhalation BID Qty: 60 0RF gabapentin 800 mg tablet 800 mg PO TID Qty: 30 0RF Seroquel 400 mg tablet 800 mg PO QPM (DME) glucometer testing kit See Rx Instructions .Route .MEDSUPPLY Qty: 1 0RF Rx Instructions: Glucometer testing kit Lancets, 100 Strips 100 [place] Low Dose Aspirin 81 mg tablet,delayed release (DR/EC) 81 mg PO QAM 30 Days Qty: 30 0RF quetiapine [Seroquel] 400 mg tablet 800 mg PO BEDTIME 30 Days Qty: 60 1RF Discontinued losartan 50 mg Tablet 25 mg PO DAILY 30 Days Qty: 30 0RF atorvastatin 40 mg Tablet 40 mg PO BEDTIME 30 Days Qty: 30 0RF carvedilol 6.25 mg Tablet 6.25 mg PO BID 30 Days Qty: 60 0RF potassium chloride [Klor-Con M20] 20 mEq Tablet,Er Particles/Crystals 20 meq PO DAILY 30 Days Qty: 30 0RF furosemide [Lasix] 40 mg tablet 40 mg PO DAILY 30 Days Qty: 30 0RF metformin 500 mg tablet 500 mg PO BID 30 Days Qty: 60 0RF Discharge Orders: Discharge Order (Routine); Ordered 01/28/23 Ordered By: Tomas Louis Other Ambulatory Orders: DME: [facility] (Order) Timeframe: 1 Day Facility: [facility] - Location: Outpatient Med Surg Ordered By: Juanjose Cruz Referrals: [facility]-Glenys Varner [Other] - 02/05/23 12:00 pm (Initial assessment for services) [facility] [Other] - 01/28/23 Alexis Adan M.D [Physician] - 1 week Discharge Diet: Cardiac Discharge Activity: Increase activity as tolerated Patient Instructions: Depression (GEN), Help Prevent Suicide (GEN), P olysubstance Use Disorder (ED), Suicide Prevention (GEN), Opioid Safety Activity Restrictions/Additional Instructions: -inject lantus 5 units in the morning (at 9am) and 5 units at bedtime (at 9pm) -Please monitor your blood sugars closely -Monitor your blood sugars 3 times daily as after meals -Please record your blood sugars, and a blood sugar log -For your NovoLog -Please inject blood sugar after meals based on sliding scale provided -Do not inject insulin if you do not eat as hypoglycemia kills -This is a NovoLog sliding scale -Insulin sliding ?fingerstick? Insulin ?141-180?0 units/sq 181-220?2 units/sq ?221-260?4 units/sq ?261-300 6 units/sq ?301-350?8 units/sq ?351-400 10 units/sq ?401-450?12 units/sq >450? 14units/sq -If your blood sugar is greater than 500 go to the emergency room -If your blood sugar is less than 60 or at anytime you feel lightheaded or dizzy or diaphoretic or have chest palpitations check your blood sugar, and eat a hard candy or drink orange juice and go immediately to the emergency room -Remember hypoglycemia kills, so if his blood sugar is less than 60 we have to increase it by taking in a sugary meal such as a hard candy or orange juice and go to the emergency room -If you have any questions please call us where here to help -please keep lifevest on all the time, please be compliant -please abstain from drug use Thank you for visiting the emergency department. You were seen and evaluated for psychiatric evaluation and acute substance intoxication. [facility] [phone] If you or someone you care for is experiencing a psychiatric emergency, please call the crisis hotline ([place]) 24-hours a day, 7 days a week at [phone]. The [facility] has a crisis stabilization center on the [address] side with walk-in hours from 11 AM to 9 PM. Follow-up with your primary care provider. Continue your medications. Please stop abusing drugs. Failure to stop abusing drugs will likely lead to or worse. Return for anything that you feel needs emergency department evaluation. Discharge Attestations [facility] Time Spent in Discharge Care*: less than 30 min Specific Discharge Activities: Specific discharge activities: educating patient, discussing with case checker/social workers/dc planners, documenting/other paperwork and evaluating patient/reviewing data Coding Level of Care Code Acute Chg FW DC note Diagnoses CHF (congestive heart failure) I50.9 Type 2 diabetes mellitus E11.9 Systolic CHF I50.20 Cannabis use disorder F12.90 Methamphetamine use disorder, severe F15.20 COPD (chronic obstructive pulmonary disease) J44.9 COPD exacerbation J44.1 Acute exacerbation of CHF (congestive heart failure) I50.9 Encounter for smoking cessation counseling Z71.6 Acute respiratory failure with hypoxia J96.01 Decreased cardiac ejection fraction R93.1 NSVT (nonsustained ventricular tachycardia) I47.29
== END 2023-01-28 15:38 | disposition home or self-care (01) | DRG 896 ==
LOC: ER 08:10 → NP 15:31 → MEDSURG 23:32 → NP 01-22 16:50
PROVIDERS: Emergency Medicine; Internal Medicine; Admitting Provider Psychiatry & Neurology Psychiatry; Emergency Provider Emergency Medicine; Visit Provider Family Medicine
DX: F15.259 Other stimulant dependence with stimulant-induced psychotic disorder, unspecified (principal); I50.23 Acute on chronic systolic (congestive) heart failure; J96.01 Acute respiratory failure with hypoxia; F15.20 Other stimulant dependence, uncomplicated; R45.851 Suicidal ideations; I47.20 Ventricular tachycardia, unspecified; J44.1 Chronic obstructive pulmonary disease with (acute) exacerbation; F11.259 Opioid dependence with opioid-induced psychotic disorder, unspecified; I42.8 Other cardiomyopathies; Z59.00 Homelessness unspecified; E11.65 Type 2 diabetes mellitus with hyperglycemia; F20.9 Schizophrenia, unspecified; Z87.891 Personal history of nicotine dependence; Z79.82 Long term (current) use of aspirin; Z81.8 Family history of other mental and behavioral disorders
CPT/HCPCS: 36415; 36416; 36600; 51702; 71045; 74176; 80048; 80051; 80053; 80306; 80307; 81003; 82330; 82805; 82962; 83605; 83735; 83880; 84100; 84145; 84443; 84484; 85025; 86140; 93005; 94640; 94660; 94762; 96372; 96374; 96375; 96376; 97150; 97165; 99238; 99285; J0696; J1100; J1200; J1815; J1940; J2060; J3490; J7512; Q0144; Q0162; Q3014